=== PATIENT | male | born 1965 | race American Indian/Alaskan Native ===

== ENCOUNTER → 2020-02-18 11:44 | Outpatient (BNVA) | payer MEDICAID, SELFPAY | PROVIDERS: PCP Internal Medicine; Referring Provider Internal Medicine; Visit Provider Orthopaedic Surgery | DX: M75.02 Adhesive capsulitis of left shoulder (principal) | CPT/HCPCS: 99212 ==

== ENCOUNTER → 2020-03-22 09:28 | Outpatient (BNVA) | payer MEDICAID, SELFPAY | PROVIDERS: PCP Internal Medicine; Visit Provider Internal Medicine Cardiovascular Disease | DX: I48.92 Unspecified atrial flutter (principal); I25.10 Atherosclerotic heart disease of native coronary artery without angina pectoris; I10 Essential (primary) hypertension | CPT/HCPCS: 93005; 99212 ==

== ENCOUNTER → 2020-03-23 13:43 | Outpatient (BNVA) | payer MEDICAID, SELFPAY | PROVIDERS: PCP Internal Medicine; Visit Provider Nurse Practitioner Family | DX: Z76.89 Persons encountering health services in other specified circumstances (principal) ==

== ENCOUNTER → 2020-04-05 12:23 | Outpatient (BNVA) | payer MEDICAID, SELFPAY | PROVIDERS: PCP Internal Medicine; Visit Provider Physician Assistant | DX: Z13.89 Encounter for screening for other disorder (principal) | CPT/HCPCS: 99212 ==

== ENCOUNTER 2020-04-06 08:15 | Outpatient (REF) | payer MEDICAID, SELFPAY ==
[2020-04-06 09:09] LABS: Hemoglobin 13.9 g/dl (14.0-18.0); Mean Corpuscular HGB Conc 32.3 g/dl (31.0-36.0); Mean Corpuscular Hemoglobin 26.3 pg (27.0-33.0); Mean Corpuscular Volume 81.4 fL (80-98); Mean Platelet Volume 10.6 fL (9.4-12.4); Platelet Count 421 X10*3/uL (160-400); Red Blood Count 5.28 X10*6/uL (4.60-5.80); Red Cell Distribution Width 13.6 % (11.0-16.0); White Blood Count 10.2 X10*3/uL (4.8-10.8)
[2020-04-06 09:50] LABS: Alanine Aminotransferase 50 U/L (0-40); Albumin Level 4.6 g/dL (3.5-5.0); Alkaline Phosphatase 111 U/L (39-117); Anion Gap 15 (12-20); Aspartate Amino Transferase 36 U/L (5-37); Bilirubin Total 0.7 mg/dL (0.0-1.0); Blood Urea Nitrogen 17 mg/dL (9-16); Carbon Dioxide 29 mmol/L (22-29); Chloride 95 mmol/L (96-108); Estimated Glomerular Filt Rate > 60; Glucose Random 250 mg/dL (60-115); Potassium 3.4 mmol/l (3.3-5.1); Sodium 136 mmol/L (135-145)
== END 2020-04-06 08:16 | disposition home or self-care (01) ==
LOC: HO.LAB 08:15
PROVIDERS: PCP Internal Medicine; Visit Provider Nurse Practitioner Family
DX: Z12.11 Encounter for screening for malignant neoplasm of colon (principal)
CPT/HCPCS: 36415; 80053; 85027

== ENCOUNTER → 2020-04-26 14:11 | Outpatient (BNVA) | payer MEDICAID, SELFPAY | PROVIDERS: PCP Internal Medicine; Visit Provider Nurse Practitioner Family ==

== ENCOUNTER 2020-05-25 06:34 | Day surgery (SDC) | payer MEDICAID, SELFPAY ==
[2020-05-19 11:42] VITALS: BMI 35.7
--- NOTE | 2020-05-24 09:56 | HO.ANESPROP2 ---
Documented by User: Catherine Leahy 05/24/20 09:58 HPI - Anesthesia Eval Consult details Narrative: 55yo M for Upper Endoscopy and Colonoscopy Cardiac cleared at [facility]. Stable CAD s/p CABG for InStent restenoses Eliquis for aflutter PMFSH Active Problems Active Problems: All Active Problems (Updated 05/19/20 @ 11:41 by May Woods) Gastroesophageal reflux disease (Acute) Past Medical History Medical History Adhesive capsulitis of left shoulder Arthritis Asthma Atrial flutter CAD (coronary artery disease) Cellulitis Depression Diabetes GERD (gastroesophageal reflux disease) Gout History of panic attacks Hx of myocardial infarction Hypertension Migraines Scoliosis Seizures Tubular adenoma Family History Family History Father No problems noted. Mother History of stomach cancer History of liver cancer Brother No problems noted. Surgical History Surgical History H/O colonoscopy History of angioplasty History of appendectomy History of esophagogastroduodenoscopy (EGD) History of open heart surgery History of sinus surgery History of umbilical hernia repair Social History Social History Household Members: Children Are you a primary body care manager to a significant other at home: No Do you presently have visiting nurse or other home services: No Alcohol intake: current Alcohol intake frequency: does not drink Smoking Status: Never smoker Use of substances other than those prescribed or required for medical reasons: No Have you been hit, kicked, punched, or otherwise hurt by someone within the past year? If so, by whom?: No Advance Directives: No Advance Directives Information Provided: No Advance Directives on File: No Recently lost weight without trying: No Current occupational status: disabled Meds Allergies Allergy/AdvReac Type Severity Reaction Status Date / Time Penicillins Allergy Mild RASH Verified 05/19/20 11:33 Sulfa (Sulfonamide Allergy Mild RASH Verified 05/19/20 11:33 Antibiotics) Iodinated Contrast Media Allergy Unknown UNKNOWN Verified 05/19/20 11:33 [IV CONTRAST] codeine AdvReac Mild STOMACH Verified 05/19/20 11:33 UPSET Docusate Calcium Allergy Mild rash Uncoded 05/19/20 11:33 Home Medications Medication Instructions Recorded Confirmed Last Taken Type albuterol sulfate 2 mg tablet 2 mg PO Q8H 02/17/20 05/19/20 Unknown History allopurinol 100 mg tablet 200 mg PO DAILY 02/17/20 05/19/20 Unknown History amlodipine 10 mg tablet 10 mg PO DAILY 02/17/20 05/19/20 Unknown History atorvastatin 80 mg tablet 80 mg PO BEDTIME 02/17/20 05/19/20 Unknown History chlorthalidone 50 mg tablet 50 mg PO DAILY 02/17/20 05/19/20 Unknown History fenofibrate 160 mg tablet 160 mg PO DAILY 02/17/20 05/19/20 Unknown History fluticasone furoate 50 INHALATION 02/17/20 04/05/20 Unknown History mcg/actuation blister powder for inhalation metformin 500 mg tablet 500 mg PO DAILY 02/17/20 05/19/20 Unknown History niacin 1,000 mg tablet,extended 1,000 mg PO BEDTIME 02/17/20 05/19/20 Unknown History release 24 hr omeprazole 40 mg capsule,delayed 40 mg PO DAILY 02/17/20 05/19/20 Unknown History release tramadol 50 mg tablet 50 mg PO DAILY 02/17/20 05/19/20 Unknown History Exam Exam Date and Time: May 24, 2020 0956 Height,Weight and Vital Signs: Height 5 ft 9 in Weight 109.769 kg Pertinent Lab Results Pertinent Lab Results: Laboratory Tests 04/06/20 04/06/20 08:30 08:30 WBC 10.2 Hgb 13.9 L Hct 43.0 Plt Count 421 H Sodium 136 Potassium 3.4 Chloride 95 L BUN 17 H Creatinine 1.21 Narrative Narrative: EKG at Cardiac OV 03/2020 NSR, T wave inversions consider anterolateral ischemia. No new changes Assessment and Plan Assessment Anesthesia Assessment: Chart Reviewed Documented by User: Pete Rodriguez 05/25/20 07:22 REPLACED BY [facility] Past Medical History Medical History Adhesive capsulitis of left shoulder Arthritis Asthma Atrial flutter CAD (coronary artery disease) Cellulitis Depression Diabetes GERD (gastroesophageal reflux disease) Gout History of panic attacks Hx of myocardial infarction Hypertension Migraines Scoliosis Seizures Tubular adenoma Family History Family History Father No problems noted. Mother History of stomach cancer History of liver cancer Brother No problems noted. Surgical History Surgical History H/O colonoscopy History of angioplasty History of appendectomy History of esophagogastroduodenoscopy (EGD) History of open heart surgery History of sinus surgery History of umbilical hernia repair Social History Social History Household Members: Children Are you a primary body care manager to a significant other at home: No Do you presently have visiting nurse or other home services: No Alcohol intake: current Alcohol intake frequency: does not drink Smoking Status: Never smoker Use of substances other than those prescribed or required for medical reasons: No Have you been hit, kicked, punched, or otherwise hurt by someone within the past year? If so, by whom?: No Advance Directives: No Advance Directives Information Provided: No Advance Directives on File: No Recently lost weight without trying: No Current occupational status: disabled Meds Allergies Allergy/AdvReac Type Severity Reaction Status Date / Time Penicillins Allergy Mild RASH Verified 05/19/20 11:33 Sulfa (Sulfonamide Allergy Mild RASH Verified 05/19/20 11:33 Antibiotics) Iodinated Contrast Media Allergy Unknown UNKNOWN Verified 05/19/20 11:33 [IV CONTRAST] codeine AdvReac Mild STOMACH Verified 05/19/20 11:33 UPSET Docusate Calcium Allergy Mild rash Uncoded 05/19/20 11:33 Home Medications Medication Instructions Recorded Confirmed Last Taken Type albuterol sulfate 2 mg tablet 2 mg PO Q8H 02/17/20 05/19/20 Unknown History allopurinol 100 mg tablet 200 mg PO DAILY 02/17/20 05/19/20 Unknown History amlodipine 10 mg tablet 10 mg PO DAILY 02/17/20 05/19/20 Unknown History atorvastatin 80 mg tablet 80 mg PO BEDTIME 02/17/20 05/19/20 Unknown History chlorthalidone 50 mg tablet 50 mg PO DAILY 02/17/20 05/19/20 Unknown History fenofibrate 160 mg tablet 160 mg PO DAILY 02/17/20 05/19/20 Unknown History fluticasone furoate 50 INHALATION 02/17/20 04/05/20 Unknown History mcg/actuation blister powder for inhalation metformin 500 mg tablet 500 mg PO DAILY 02/17/20 05/19/20 Unknown History niacin 1,000 mg tablet,extended 1,000 mg PO BEDTIME 02/17/20 05/19/20 Unknown History release 24 hr omeprazole 40 mg capsule,delayed 40 mg PO DAILY 02/17/20 05/19/20 Unknown History release tramadol 50 mg tablet 50 mg PO DAILY 02/17/20 05/19/20 Unknown History Exam Airway Mallampati Class: III TM Dist: >3cm Neck ROM: Full Loose/Missing/Broken Teeth: Yes Heart: irreg irreg S1S2 Lungs: cta b/l Assessment and Plan Assessment Anesthesia Assessment: Anesthesia Plan Discussed, PAT Visit and Chart Reviewed Final Anesthetic Review NPO: Yes ASA Class: III Final Preanesthetic Review: No Changes in Pt Med Stat, Meds/Allgs Chart Reviewed, Consent Obtained/Reviewed and Anes Risks/Benef Reviewed Patient Risk: Intermediate Procedure Risk: Low Assessment/Block/Sedation in SS: Assess/Block/Sedation-SS Anesthetic Plan Anesthetic Plan: MAC: and Agree w/ Assess. and Plan Disposition: Standard PACU
[2020-05-25 06:52] VITALS: BP 149/92; PULSE 92; RESP 18; TEMP 36.3; O2SAT 97
[2020-05-25 06:59] VITALS: BMI 34.1
[2020-05-25 06:59] LABS: Glucose, Whole Blood 187 mg/dL (60-115)
[2020-05-25] MEDS: Lactated Ringers 1,000 ML 50 ML IV (07:33)
--- NOTE | 2020-05-25 07:36 | MHC.SHP ---
Pre-Procedural Eval Section B Chief Complaint: Screening Details of Present Illness: Intractable pain--epigastric/chest; colon cancer screening-TA Relevant Family History (Specify if Yes): No Relevant Social History: None Present Medications: see Short Stay Collaborative assessment Medical History: Significant History (CAD, atrial flutter, on anticoag--held) History of Previous Operations: Relevant previous surgery/procedure and date(s) (colo 5 year ago /tubular adenoma) Allergies: Allergies Allergy/AdvReac Type Severity Reaction Status Date / Time Penicillins Allergy Mild RASH Verified 05/19/20 11:33 Sulfa (Sulfonamide Allergy Mild RASH Verified 05/19/20 11:33 Antibiotics) Iodinated Contrast Media Allergy Unknown UNKNOWN Verified 05/19/20 11:33 [IV CONTRAST] codeine AdvReac Mild STOMACH Verified 05/19/20 11:33 UPSET Docusate Calcium Allergy Mild rash Uncoded 05/19/20 11:33 Review of Systems Sugical H&P ROS: Negative: Constitution, Cardiovascular, Respiratory and Gastrointestinal Exam Surgical H&P Exam: Normal: HEENT, Normal: Heart, Normal: Lungs, Normal: Extremities, Normal: Abdomen and Normal: Skin Plan Diagnosis/Plan: Unchanged I have reviewed the history and physical and performed a pertinent physical examination on my patient. No changes have occurred unless specified.yes
[2020-05-25 08:15] VITALS: BP 119/66; PULSE 83; RESP 18; TEMP 36.3; O2SAT 98
--- NOTE | 2020-05-25 08:18 | P.BOP_ITS ---
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
[2020-05-25 08:30] VITALS: BP 145/95; PULSE 90; RESP 18; TEMP 36.3; O2SAT 96
--- NOTE | 2020-05-28 09:38 | P.OP_ITS ---
Operative Note Operative Note Date of Service: 05/25/20 Narrative: Pre-op diagnosis: Chronic GERD, dyspepsia, Hx of tubular adenomas Post-op diagnosis: other (Erosive antral Gastritis, hx GERD; Rectal polyp- Internal hemorrhoids-2+) Procedure: EGD w/ bx; [place] with exicisional polypectomy cold bx forceps technique Implants: none Surgeon: Betina Davis MD Anesthesia: MAC (Cuff, PANAMA HAT BLOCKER) FINDINGS: EGD: Videoendoscope was introduced withour difficulty. Esophageal mucosa was normal. There was slight erythema in the distal esophagus. No Hiatal hernia was seen. There were pseudopolypoid areas in the antrum with erosive changes associated with them. This was just proximal to the pylorus. Duodenal bulb and proximal second duodenum were mildly erythematous. Random gastric bx were obtained. COLO: JENNA: Prostate was normal to palpation. Adult slim colonoscope was inserted with no difficulty. Scope advanced through sigmoid, descending, tranverse colon. Retained bulky residue was encountered. Not all of this could be suctioned due to the fibrous nature of the material. Scope was advanced into the cecum. Appendiceal orifice was obscured. Ileocecal valve was seen. Slow withdrawal of scope with good rotational views was achieved. 2-3mm polyp was identified @ 8-10cm. This was removed using cold bx forceps. ARV was clear. There were 1-2+Internal Hemorrhoids noted. Estimated blood loss (mL): 10 Pathology: other (random gastric); rectal polyp. Condition: stable Disposition: PACU PLAN: Repeat COLO will be scheduled in 3 years due to prep and lack of visibility in some areas. EGD findings will be discussed with patient on followup visit.
== END 2020-05-25 09:25 | disposition home or self-care (01) ==
PROVIDERS: PCP Internal Medicine; Visit Provider Internal Medicine Gastroenterology
PROC: (CPT 45380; principal; 2020-05-25 07:30)
DX: Z12.11 Encounter for screening for malignant neoplasm of colon (principal); Z86.010 Personal history of colon polyps; D12.8 Benign neoplasm of rectum; K64.8 Other hemorrhoids; K21.9 Gastro-esophageal reflux disease without esophagitis; K29.50 Unspecified chronic gastritis without bleeding; J45.909 Unspecified asthma, uncomplicated; E11.9 Type 2 diabetes mellitus without complications; I25.10 Atherosclerotic heart disease of native coronary artery without angina pectoris; I10 Essential (primary) hypertension; I48.92 Unspecified atrial flutter; Z79.01 Long term (current) use of anticoagulants; Z79.82 Long term (current) use of aspirin; Z79.899 Other long term (current) drug therapy; Z79.51 Long term (current) use of inhaled steroids; Z79.84 Long term (current) use of oral hypoglycemic drugs; Z88.0 Allergy status to penicillin; Z88.2 Allergy status to sulfonamides; Z91.041 Radiographic dye allergy status; Z88.8 Allergy status to other drugs, medicaments and biological substances
CPT/HCPCS: 45380; 43239; 82947; 88305; 88342

== ENCOUNTER → 2020-07-05 13:09 | Outpatient (BNVA) | payer MEDICAID, SELFPAY | PROVIDERS: PCP Internal Medicine; Referring Provider Internal Medicine; Visit Provider Nurse Practitioner Family ==

== ENCOUNTER → 2020-08-09 12:45 | Outpatient (BNVA) | payer MEDICAID, SELFPAY | PROVIDERS: PCP Internal Medicine; Referring Provider Internal Medicine; Visit Provider Nurse Practitioner Family | DX: K21.9 Gastro-esophageal reflux disease without esophagitis (principal); R14.0 Abdominal distension (gaseous) | CPT/HCPCS: 99212 ==

== ENCOUNTER 2020-08-23 07:54 | Outpatient (REF) | payer MEDICAID, SELFPAY ==
[2020-08-23 10:51] LABS: Anion Gap 13 (12-20); Blood Urea Nitrogen 19 mg/dL (9-16); Calcium 9.7 mg/dL (8.4-10.2); Carbon Dioxide 26 mmol/L (22-29); Chloride 102 mmol/L (96-108); Estimated Glomerular Filt Rate > 60; Glucose Random 163 mg/dL (60-115); Potassium 4.2 mmol/L (3.3-5.1); Sodium 137 mmol/L (135-145)
== END 2020-08-23 07:55 | disposition home or self-care (01) ==
LOC: HO.LAB 07:54
PROVIDERS: PCP Internal Medicine; Visit Provider Nurse Practitioner Family
DX: R10.9 Unspecified abdominal pain (principal)
CPT/HCPCS: 36415; 80048

== ENCOUNTER 2020-08-28 11:41 | Outpatient (REF) | payer MEDICAID, SELFPAY ==
--- NOTE | ~2020-08-28 | CT_ITS ---
EXAMINATION: CT ABDOMEN AND PELVIS WITH CONTRAST CLINICAL INFORMATION: Gastroesophageal reflux disease COMPARISON: Previous CT most recent September 2017 and abdominal ultrasound May 2016 TECHNIQUE: Multidetector volumetric images were obtained from the superior aspect of the liver through the pubic symphysis following administration 85 mL of Omnipaque 350 intravenous contrast. Sagittal and coronal reformatted images were obtained on the technologist's workstation. Oral contrast: Yes This CT examination was performed using dose optimization techniques as appropriate, variously including the following: *Automated exposure control *Adjustment of mA and/or kV according to patient size (this includes techniques or standardized protocols for targeted exams where dose is matched to indication/reason for exam; i.e. extremities or head) *Use of iterative reconstruction technique DLP: 742 mGy-cm FINDINGS: LUNG BASES: The visualized lung bases are unremarkable. LIVER, GALLBLADDER, AND BILIARY TREE: The liver is enlarged and low in attenuation suggestive of fatty infiltration. No focal liver lesion is seen. The gallbladder is normal. There is no biliary duct dilatation. PANCREAS: Unremarkable. SPLEEN: Unremarkable. ADRENAL GLANDS: Unremarkable. KIDNEYS AND URETERS: There is a 2 x 3 cm low-attenuation lesion exophytic to the upper pole of the right kidney. Hounsfield units without contrast measure 15 suggestive of a cyst. This is increased from 1 x 2 cm on September 2017 exam. No imaging follow-up needed. The kidneys are otherwise unremarkable. BLADDER: Unremarkable. GASTROINTESTINAL TRACT: There is mild diverticulosis of the colon. No evidence of diverticulitis is seen. The small and large bowel are otherwise unremarkable. The appendix is seen. The stomach is unremarkable. ABDOMINAL WALL: No significant hernia is appreciated. LYMPH NODES: There are small retroperitoneal and small bowel mesentery lymph nodes. No enlarged lymph nodes are seen. VASCULAR: Unremarkable. PELVIC VISCERA: Unremarkable. OSSEOUS STRUCTURES: There are mild degenerative changes of the spine. CT/CT abdomen pelvis w con IMPRESSION: Enlarged fatty liver. Right renal cyst. Mild diverticulosis of the colon.
[2020-08-28] MEDS: Barium Sulfate Oral (Vanilla) 450 ML ORAL.SUSP 900 ML PO (14:30)
== END 2020-08-28 11:42 | disposition home or self-care (01) ==
LOC: HO.CT 11:41
PROVIDERS: Visit Provider Nurse Practitioner Family
DX: K21.9 Gastro-esophageal reflux disease without esophagitis (principal); R14.0 Abdominal distension (gaseous)
CPT/HCPCS: 74177

== ENCOUNTER 2020-10-24 09:50 | Emergency (ER) | payer MEDICAID, SELFPAY ==
--- NOTE | ~2020-10-24 | CT_ITS ---
EXAMINATION: CT ABDOMEN AND PELVIS WITHOUT CONTRAST CLINICAL INFORMATION: Bloody diarrhea; question colitis. COMPARISON: CT abdomen and pelvis dated 09/27/2020. TECHNIQUE: Multidetector volumetric imaging was performed from the superior aspect of the liver through the pubic symphysis. Sagittal and coronal reformatted images were obtained on the technologist's workstation. This CT examination was performed using dose optimization techniques as appropriate, variously including the following: *Automated exposure control *Adjustment of mA and/or kV according to patient size (this includes techniques or standardized protocols for targeted exams where dose is matched to indication/reason for exam; i.e. extremities or head) *Use of iterative reconstruction technique DLP: 908 mGy-cm FINDINGS: LUNG BASES: The visualized lung bases are unremarkable. There has been a prior sternotomy. Question coronary stent partially visualized. LIVER, GALLBLADDER, AND BILIARY TREE: The liver is normal in size, shape, and generally diminished in attenuation. Within the posterior segment of the right hepatic lobe (3:21), a 1.4 cm high attenuation, circumscribed focus is seen. This may represent a vascular structure or a benign hemangioma, and the appearance is unchanged from 09/08/2017 (2:20) and considered benign by virtue of its long-term stability. No biliary ductal dilatation is present. The gallbladder is unremarkable with no evidence of radiopaque gallstones, gallbladder wall thickening, or obvious pericholecystic inflammatory changes. PANCREAS: Unremarkable. SPLEEN: Unremarkable. ADRENAL GLANDS: Unremarkable. KIDNEYS AND URETERS: The kidneys are normal in size, shape, and attenuation. No hydronephrosis, hydroureter, or calculi seen. Arising anteriorly from the mid right kidney (4:40), a 2.9 cm ovoid cyst is seen, with precontrast Hounsfield value of 3.2 units. No perinephric stranding. BLADDER: Unremarkable. GASTROINTESTINAL TRACT: The small and large bowel are unremarkable. The appendix is is not identified and may be surgically absent. Haziness of the mesentery (3:50) is unchanged from prior examinations including 03/10/2015 (2:42), and it is of no acute clinical significance. ABDOMINAL WALL: There are small fat-containing bilateral inguinal hernias. LYMPH NODES: There are shotty, nonpathologically enlarged mesenteric, para-aortic, bilateral iliac chain and inguinal lymph nodes. No sizable abdominopelvic lymphadenopathy is seen. VASCULAR: There is mild aortoiliac atherosclerotic calcification. No abdominal aortic aneurysm is seen. PELVIC VISCERA: The prostate and seminal vesicles are unremarkable. OSSEOUS STRUCTURES: There is multi-level marked lower thoracic and moderate lumbar spondylosis. No acute or aggressive osseous abnormality is seen. CT/CT abdomen pelvis wo con IMPRESSION: 1. No bowel obstruction, free peritoneal air or abscess is seen. The vermiform appendix is not identified. No significant diverticulosis or diverticulitis is seen. 2. No urinary calculus or obstructive uropathy is seen bilaterally. 3. There is hepatic steatosis. 4. No abdominopelvic mass, free fluid or lymphadenopathy is seen. 5. There are multi-level degenerative changes of the thoracolumbar spine.
[2020-10-24 10:09] VITALS: BP 120/87; PULSE 86; RESP 16; TEMP 36.5; O2SAT 97; BMI 34.7
--- NOTE | 2020-10-24 10:32 | ED_ITS ---
HPI - General Adult General Chief complaint: Back Pain/Injury Stated complaint: back pain Time Seen by Provider: 10/24/20 10:17 Source: patient Mode of arrival: ambulatory Limitations: no limitations History of Present Illness HPI narrative: Patient presents to the ED for chronic back pain and also diarrhea with blood. patient describes diarrhea as brown with bright red blood and abdominal cramping. Pateint denies any fever, chills, hematuria, dysuria, flank pain, or any recent trauma. Patient states no urinary/bowel incontinence Related Data Home Medications Medication Instructions Recorded Confirmed albuterol sulfate 2 mg tablet 2 mg PO Q8H 02/17/20 05/19/20 allopurinol 100 mg tablet 200 mg PO DAILY 02/17/20 05/19/20 amlodipine 10 mg tablet 10 mg PO DAILY 02/17/20 05/19/20 atorvastatin 80 mg tablet 80 mg PO BEDTIME 02/17/20 05/19/20 chlorthalidone 50 mg tablet 50 mg PO DAILY 02/17/20 05/19/20 fenofibrate 160 mg tablet 160 mg PO DAILY 02/17/20 05/19/20 fluticasone furoate 50 INHALATION 02/17/20 04/05/20 mcg/actuation blister powder for inhalation (Arnuity Ellipta) metformin 500 mg tablet 500 mg PO DAILY 02/17/20 05/19/20 niacin 1,000 mg tablet,extended 1,000 mg PO BEDTIME 02/17/20 05/19/20 release 24 hr tramadol 50 mg tablet 50 mg PO DAILY 02/17/20 05/19/20 glipizide 10 mg tablet 10 mg PO DAILY 10/25/20 metoprolol succinate 50 mg 50 mg PO DAILY 10/25/20 tablet,extended release 24 hr niacin 500 mg tablet,extended 500 mg PO BEDTIME 10/25/20 release 24 hr Previous Rx's Medication Instructions Recorded aspirin 81 mg tablet,delayed 81 mg PO DAILY #120 tab 04/17/20 release (Adult Aspirin Regimen) famotidine 20 mg tablet 20 mg PO BEDTIME #30 tab 08/09/20 omeprazole 40 mg capsule,delayed 40 mg PO DAILY #30 cap 08/09/20 release apixaban 5 mg tablet (Eliquis) 5 mg PO BID 90 Days #180 tab 08/10/20 docusate sodium 100 mg capsule 100 mg PO BEDTIME #30 cap 10/25/20 hydrocortisone 2.5 % topical cream 1 appl CA BID-QID PRN #30 g 10/25/20 with perineal applicator (Proctosol HC) sennosides 8.6 mg tablet (Natural 8.6 mg PO BEDTIME #30 tab 10/25/20 Senna Laxative) Allergies Allergy/AdvReac Type Severity Reaction Status Date / Time Iodinated Contrast Media Allergy Intermediate Difficulty Verified 10/25/20 12:51 [IV CONTRAST] Breathing Penicillins Allergy Mild RASH Verified 10/25/20 12:51 Sulfa (Sulfonamide Allergy Mild RASH Verified 10/25/20 12:51 Antibiotics) codeine AdvReac Mild STOMACH Verified 10/25/20 12:51 UPSET Docusate Calcium Allergy Mild rash Uncoded 10/25/20 12:51 Review of Systems Constitutional: Constitutional: Reports as per HPI and Reports no additional constitutional complaints Eyes: Eyes: Reports as per HPI and Reports no additional eye complaints ENT: Reports system reviewed and no additional complaints, except as documented and Reports as per HPI Cardiovascular: Cardiovascular: Reports as per HPI and Reports no additional cardiovascular complaints Respiratory: Respiratory: Reports as per HPI and Reports no additional respiratory complaints Gastrointestinal: Gastrointestinal: Reports as per HPI, Reports no additional gastrointestinal complaints, Reports hematochezia and Reports diarrhea Musculoskeletal: Musculoskeletal: Reports no additional musculoskeletal complaints and Reports as per HPI Neurologic: Reports system reviewed and no additional complaints, except as documented and Reports as per HPI Psychiatric: Psychiatric: Reports no additional psychiatric complaints and Reports as per HPI PMFSH Past Medical History Medical History Adhesive capsulitis of left shoulder Arthritis Asthma Atrial flutter CAD (coronary artery disease) Cellulitis Depression Diabetes GERD (gastroesophageal reflux disease) Gout History of panic attacks Hx of myocardial infarction Hypertension Migraines Scoliosis Seizures Tubular adenoma Surgical History H/O colonoscopy History of angioplasty History of appendectomy History of esophagogastroduodenoscopy (EGD) History of open heart surgery History of sinus surgery History of umbilical hernia repair Family History Family History Father No problems noted. Mother History of stomach cancer History of liver cancer Brother No problems noted. Social History Social History Household Members: Children Are you a primary neurocritical care physician to a significant other at home: No Do you presently have visiting nurse or other home services: No Alcohol intake: never Patient Tobacco Use Status: Never used Tobacco Current occupational status: disabled Physical Exam Vital Signs: Vital Signs: Last Vital Signs Temp 97.7 F 10/24/20 10:09 Pulse 83 10/24/20 12:40 Resp 16 10/24/20 10:09 BP 153/94 H 10/24/20 12:40 Pulse Ox 97 10/24/20 12:40 Body Mass Index 34.7 Const: General: cooperative, healthy appearing, comfortable, no acute distress, well developed, alert, awake and Physically active Orientation/consciousness: patient oriented x3 HENMT: Head: Yes normal to inspection, Yes No palpable skull fracture present, Yes normocephalic, Yes atraumatic and No abrasion Eyes: General: appearance normal, both eyes and all related structures Neck: Neck: Yes normal visual inspection, Yes full ROM, Yes no lymphadenopathy, Yes no meningeal signs, Yes trachea midline, Yes supple and No tender Chest: Chest palpation & inspection: normal inspection of the chest and normal palpation of entire chest wall Resp: Effort & Inspection: normal respiratory effort and able to speak in complete sentences Cardio: Jugular venous distension: no JVD Heart sounds: S1 normal heart sound present and S2 normal heart sound present GI: Inspection: Yes normal to inspection and No abdominal wall ecchymosis Palpation (GI): Soft to palpation, not firm, nontender, no guarding and not rigid : General: No CVA tenderness and Yes no CVA tenderness Back/Spine/Pelvis: Back: no CVA tenderness, No CVA tenderness and No back tenderness Skin: General skin exam: no rashes or lesions noted and elasticity normal Neuro: General: patient oriented x3, gait normal, no meningeal signs and CN's II-XI intact bilaterally Cranial nerves: Yes CN's II-XII intact bilaterally Extrem: General: Yes normal to inspection and Yes full ROM Psych: Appearance: grossly normal, well kempt and not disheveled Course Course Course Narrative: Labs and rectal exam to be done. Reevaluation(s) Reevaluation #1: Patient is Hemodynamically stable and not in any distress. patient did not have any diarrhea during ED visit. Stool guaic is negative. WIll send for CT scan Time: 10:59 Reevaluation #2: CT scan came back normal and negative for colitis or diverticulosis. Patient was asked to give stool sample to check for bacteria including C.diff, but patient could not give sample. patient informed to follow up with his PCP tomorrow for stool culture. patient also advised to follow up with PCP for referral to gastroenterolgist for colonscopy Time: 15:32 Medical Decision Making MDM Narrative Medical decision making narrative: Diarrhea, with rectal bleeding Lab Data Result diagrams: 10/24/20 10:38 10/24/20 10:38 Labs: Lab Results 10/24/20 10/24/20 10/24/20 Range/Units 10:38 10:38 10:38 WBC 9.4 (4.8-10.8) X10*3/uL RBC 5.24 (4.60-5.80) X10*6/uL Hgb 13.9 L (14.0-18.0) g/dl Hct 42.9 (42-52) % MCV 81.9 (80-98) fL MCH 26.5 L (27.0-33.0) pg MCHC 32.4 (31.0-36.0) g/dl RDW 14.5 (11.0-16.0) % Plt Count 348 (160-400) X10*3/uL MPV 9.5 (9.4-12.4) fL Immature Gran % (Auto) 0.3 (0.0-0.4) % Neut % (Auto) 51.6 (45-73) % Lymph % (Auto) 35.6 (20-40) % [place] % (Auto) 8.5 (2-11) % Eos % (Auto) 3.1 (0-4) % Baso % (Auto) 0.9 (0-2) % Lymph # (Auto) 3.3 (1.2-4.9) X10*3/uL [place] # (Auto) 0.8 (0.1-1.2) X10*3/uL Eos # (Auto) 0.3 (0.0-0.4) X10*3/uL Baso # (Auto) 0.1 (0.0-0.2) X10*3/uL Abs Immat Gran (auto) 0.03 (0.00-0.03) X10*3/uL Absolute Neuts (auto) 4.8 (2.0-8.3) X10*3/uL Absolute Nucleated RBC 0.000 (0.0-0.012) X10*3/uL Nucleated RBC % (auto) 0.0 (0.0-0.2) /100WBC PT 12.4 (9.9-13.0) SEC INR 1.1 (0.9-1.1) APTT 42.6 H (24.1-38.0) SEC Sodium 136 (135-145) mmol/L Potassium 3.7 (3.3-5.1) mmol/L Chloride 99 (96-108) mmol/L Carbon Dioxide 27 (22-29) mmol/L Anion Gap 14 (12-20) BUN 22 H (9-16) mg/dL Creatinine 1.08 (0.5-1.4) mg/dL Estim Creat Clear Calc 91.8 Estimated GFR > 60 Random Glucose 163 H (60-115) mg/dL Calcium 10.0 (8.4-10.2) mg/dL Total Bilirubin 0.3 (0.0-1.0) mg/dL Direct Bilirubin (0.0-0.5) mg/dL AST 23 (5-37) U/L ALT 35 (0-40) U/L Alkaline Phosphatase 119 H (39-117) U/L Total Protein 7.9 (6.5-8.0) g/dL Albumin 4.2 (3.5-5.0) g/dL Lipase (8-78) U/L Stool Occult Blood (NEGATIVE) 10/24/20 10/24/20 Range/Units 10:38 10:59 WBC (4.8-10.8) X10*3/uL RBC (4.60-5.80) X10*6/uL Hgb (14.0-18.0) g/dl Hct (42-52) % MCV (80-98) fL MCH (27.0-33.0) pg MCHC (31.0-36.0) g/dl RDW (11.0-16.0) % Plt Count (160-400) X10*3/uL MPV (9.4-12.4) fL Immature Gran % (Auto) (0.0-0.4) % Neut % (Auto) (45-73) % Lymph % (Auto) (20-40) % [place] % (Auto) (2-11) % Eos % (Auto) (0-4) % Baso % (Auto) (0-2) % Lymph # (Auto) (1.2-4.9) X10*3/uL [place] # (Auto) (0.1-1.2) X10*3/uL Eos # (Auto) (0.0-0.4) X10*3/uL Baso # (Auto) (0.0-0.2) X10*3/uL Abs Immat Gran (auto) (0.00-0.03) X10*3/uL Absolute Neuts (auto) (2.0-8.3) X10*3/uL Absolute Nucleated RBC (0.0-0.012) X10*3/uL Nucleated RBC % (auto) (0.0-0.2) /100WBC PT (9.9-13.0) SEC INR (0.9-1.1) APTT (24.1-38.0) SEC Sodium (135-145) mmol/L Potassium (3.3-5.1) mmol/L Chloride (96-108) mmol/L Carbon Dioxide (22-29) mmol/L Anion Gap (12-20) BUN (9-16) mg/dL Creatinine (0.5-1.4) mg/dL Estim Creat Clear Calc Estimated GFR Random Glucose (60-115) mg/dL Calcium (8.4-10.2) mg/dL Total Bilirubin 0.3 (0.0-1.0) mg/dL Direct Bilirubin < 0.2 (0.0-0.5) mg/dL AST 23 (5-37) U/L ALT 34 (0-40) U/L Alkaline Phosphatase 118 H (39-117) U/L Total Protein 7.9 (6.5-8.0) g/dL Albumin 4.3 (3.5-5.0) g/dL Lipase 39 (8-78) U/L Stool Occult Blood POSITIVE (NEGATIVE) Discharge Plan Discharge Clinical Impression: Gastroenteritis, Rectal bleed Patient Disposition: Home, Self-Care Instructions: Rectal Bleeding (ED), Acute Diarrhea (ED) Additional Instructions: Regrese al m?dico si tiene dolor abdominal, empeoramiento del sangrado rectal, fiebre, escalofr?os, debilidad o cualquier otro s?ntoma que le preocupe. Llame al PCP ma?akilah para programar un muestreo de heces para verificar si hay lisa terias, incluida C. Diff. Tambi?n necesitar? seguimiento con gastroenterolog?a. Prescriptions: No Action aspirin [Adult Aspirin Regimen] 81 mg tablet,delayed release (DR/EC) 81 mg PO DAILY Qty: 120 RF: 3 Hold Instructions: Resume on 05/30/20. removal small polyp Eliquis 5 mg tablet 5 mg PO BID 90 Days Qty: 180 RF: 1 omeprazole 40 mg capsule,delayed release(DR/EC) 40 mg PO DAILY Qty: 30 RF: 2 famotidine 20 mg tablet 20 mg PO BEDTIME Qty: 30 RF: 3 glipizide 10 mg tablet 10 mg PO DAILY RF: 0 metoprolol succinate 50 mg tablet extended release 24 hr 50 mg PO DAILY RF: 0 niacin 500 mg tablet extended release 24 hr 500 mg PO BEDTIME RF: 0 docusate sodium 100 mg capsule 100 mg PO BEDTIME Qty: 30 RF: 3 sennosides [Natural Senna Laxative] 8.6 mg tablet 8.6 mg PO BEDTIME Qty: 30 RF: 2 hydrocortisone [Proctosol HC] 2.5 % cream with perineal applicator 1 appl CA BID-QID PRN (Reason: hemorrhoids) Qty: 30 RF: 2 Arnuity Ellipta 50 mcg/actuation blister with device inhalation RF: 0 tramadol 50 mg tablet 50 mg PO DAILY RF: 0 amlodipine 10 mg tablet 10 mg PO DAILY RF: 0 albuterol sulfate 2 mg tablet 2 mg PO Q8H RF: 0 chlorthalidone 50 mg tablet 50 mg PO DAILY RF: 0 niacin 1,000 mg tablet extended release 24 hr 1,000 mg PO BEDTIME RF: 0 fenofibrate 160 mg tablet 160 mg PO DAILY RF: 0 atorvastatin 80 mg tablet 80 mg PO BEDTIME RF: 0 metformin 500 mg tablet 500 mg PO DAILY RF: 0 allopurinol 100 mg tablet 200 mg PO DAILY RF: 0 Referrals: Sam Saini [Physician] - 2 days (Rectal bleed. Colonscopy may be necessary) Stand Alone Forms: Work/School Release Interventions: ED Discharge Assessment Last Done: 10/24/20 15:56 Discharge Date/Time: 10/24/20 15:56 Print Language: Pakistani
[2020-10-24] MEDS: 0.9 % Sodium Chloride 1,000 ML 999 ML IV (10:40)
[2020-10-24 10:44] LABS: MANUAL DIFF FLAG NO
[2020-10-24 10:48] LABS: Basophils Absolute Auto 0.1 X10*3/uL (0.0-0.2); Basophils Percent Auto 0.9 % (0-2); Eosinophils Absolute Auto 0.3 X10*3/uL (0.0-0.4); Eosinophils Percent Auto 3.1 % (0-4); Hematocrit 42.9 % (42-52); Hemoglobin 13.9 g/dl (14.0-18.0); Imm Gran Abs Auto 0.03 X10*3/uL (0.00-0.03); Imm Gran Pct Auto 0.3 % (0.0-0.4); Lymphocytes Absolute Auto 3.3 X10*3/uL (1.2-4.9); Lymphocytes Percent Auto 35.6 % (20-40); Mean Corpuscular HGB Conc 32.4 g/dl (31.0-36.0); Mean Corpuscular Hemoglobin 26.5 pg (27.0-33.0); Mean Corpuscular Volume 81.9 fL (80-98); Mean Platelet Volume 9.5 fL (9.4-12.4); Monocytes Absolute Auto 0.8 X10*3/uL (0.1-1.2); Monocytes Percent Auto 8.5 % (2-11); Neutrophils Absolute Auto 4.8 X10*3/uL (2.0-8.3); Neutrophils Percent Auto 51.6 % (45-73); Platelet Count 348 X10*3/uL (160-400); Red Blood Count 5.24 X10*6/uL (4.60-5.80); Red Cell Distribution Width 14.5 % (11.0-16.0); White Blood Count 9.4 X10*3/uL (4.8-10.8)
[2020-10-24 10:55] LABS: INTERNATIONAL NORM RATIO 1.1 (0.9-1.1); Prothrombin Time 12.4 SEC (9.9-13.0)
[2020-10-24 10:58] LABS: Partial Thromboplastin Time 42.6 SEC (24.1-38.0)
[2020-10-24 11:09] LABS: OBS Int Ctl Valid YES; OBS1 POSITIVE (NEGATIVE)
[2020-10-24 11:13] LABS: Alanine Aminotransferase 35 U/L (0-40); Albumin Level 4.2 g/dL (3.5-5.0); Alkaline Phosphatase 119 U/L (39-117); Anion Gap 14 (12-20); Aspartate Amino Transferase 23 U/L (5-37); Bilirubin Total 0.3 mg/dL (0.0-1.0); Blood Urea Nitrogen 22 mg/dL (9-16); Carbon Dioxide 27 mmol/L (22-29); Chloride 99 mmol/L (96-108); Creatinine Clr Calc Pharmacy 91.8; Estimated Glomerular Filt Rate > 60; Glucose Random 163 mg/dL (60-115); Potassium 3.7 mmol/L (3.3-5.1); Sodium 136 mmol/L (135-145); Total Protein 7.9 g/dL (6.5-8.0)
[2020-10-24 11:14] LABS: Alanine Aminotransferase 34 U/L (0-40); Albumin Level 4.3 g/dL (3.5-5.0); Alkaline Phosphatase 118 U/L (39-117); Aspartate Amino Transferase 23 U/L (5-37); Bilirubin Direct < 0.2 mg/dL (0.0-0.5); Bilirubin Total 0.3 mg/dL (0.0-1.0); Lipase 39 U/L (8-78); Total Protein 7.9 g/dL (6.5-8.0)
[2020-10-24] MEDS: Famotidine/PF 20 MG/2 ML VIAL IVPUSH (11:14)
[2020-10-24 12:40] VITALS: BP 153/94; PULSE 83; O2SAT 97
== END 2020-10-24 15:56 | disposition home or self-care (01) ==
PROVIDERS: Physician Assistant; Emergency Provider Internal Medicine; PCP Internal Medicine
DX: K52.9 Noninfective gastroenteritis and colitis, unspecified (principal); K62.5 Hemorrhage of anus and rectum; E11.9 Type 2 diabetes mellitus without complications; I10 Essential (primary) hypertension; I25.2 Old myocardial infarction; Z79.899 Other long term (current) drug therapy
CPT/HCPCS: 36415; 74176; 80053; 80076; 82248; 82272; 83690; 85025; 85610; 85730; 96361; 96374; 99284

== ENCOUNTER → 2020-10-25 12:42 | Outpatient (BNVA) | payer MEDICAID, SELFPAY | PROVIDERS: PCP Internal Medicine; Referring Provider Internal Medicine; Visit Provider Nurse Practitioner Family | DX: K59.01 Slow transit constipation (principal); K64.1 Second degree hemorrhoids | CPT/HCPCS: 99212 ==

== ENCOUNTER → 2021-01-29 07:46 | Outpatient (BNVA) | payer MEDICAID, SELFPAY | PROVIDERS: PCP Internal Medicine; Referring Provider Internal Medicine; Visit Provider Nurse Practitioner Family | DX: K21.9 Gastro-esophageal reflux disease without esophagitis (principal); K59.04 Chronic idiopathic constipation; K64.9 Unspecified hemorrhoids | CPT/HCPCS: 99212 ==

== ENCOUNTER → 2021-05-15 12:48 | Outpatient (BNVA) | payer MEDICAID, SELFPAY | PROVIDERS: PCP Internal Medicine; Referring Provider Internal Medicine; Visit Provider Nurse Practitioner Family | DX: I25.10 Atherosclerotic heart disease of native coronary artery without angina pectoris (principal); I10 Essential (primary) hypertension; I48.92 Unspecified atrial flutter; I25.2 Old myocardial infarction; Z86.73 Personal history of transient ischemic attack (TIA), and cerebral infarction without residual deficits; Z79.01 Long term (current) use of anticoagulants; Z79.82 Long term (current) use of aspirin; Z79.899 Other long term (current) drug therapy; Z95.1 Presence of aortocoronary bypass graft | CPT/HCPCS: 99212 ==

== ENCOUNTER 2021-06-14 17:25 | Emergency (ER) | payer MEDICAID, SELFPAY ==
--- NOTE | 2021-06-14 | ECG_ITS ---
Test Reason : CHEST PAIN Blood Pressure : / mmHG Vent. Rate : 099 BPM Atrial Rate : 099 BPM P-R Int : 146 ms QRS Dur : 098 ms QT Int : 354 ms P-R-T Axes : 038 004 150 degrees QTc Int : 454 ms Normal sinus rhythm RSR' or QR pattern in V1 suggests right ventricular conduction delay T wave abnormality, consider lateral ischemia Abnormal ECG When compared with ECG of 01-MAY-2019 11:02, RSR' pattern in V1 is now Present Referred By: Marc Vanessa Electronically Signed By:PERLA HERNANDEZ MD
[2021-06-14 17:47] VITALS: BP 132/58; BP 135/73; PULSE 120; PULSE 93; RESP 18; TEMP 36.7; O2SAT 98; O2SAT 99; BMI 34.1
--- NOTE | 2021-06-14 17:47 | ED_ITS ---
HPI - Chest Pain General Chief Complaint: Chest Pain Stated Complaint: Chest pain Time Seen by Provider: 06/14/21 17:47 Source: patient Mode of arrival: EMS Limitations: no limitations History of Present Illness HPI narrative: Patient 56 years old with history of hypertension hyperlipidemia diabetes paroxysmal AFib on Eliquis coronary artery disease status post CABG in 2019 usually healthy otherwise without any chest pains today had argument with his daughter who is 12 years old an hour prior to arrival which made him stressed out started having chest pain Feels same as when he had a heart attack pain going to the left shoulder feel his tongue numb no facial pain. Patient received aspirin and nitroglycerin by EMS felt little better Related Data Home Medications Medication Instructions Recorded Confirmed albuterol sulfate 2 mg tablet 2 mg PO Q8H 02/17/20 05/15/21 allopurinol 100 mg tablet 200 mg PO DAILY 02/17/20 05/15/21 amlodipine 10 mg tablet 10 mg PO DAILY 02/17/20 05/15/21 atorvastatin 80 mg tablet 80 mg PO BEDTIME 02/17/20 05/15/21 chlorthalidone 50 mg tablet 50 mg PO DAILY 02/17/20 05/15/21 fenofibrate 160 mg tablet 160 mg PO DAILY 02/17/20 05/15/21 fluticasone furoate 50 INHALATION 02/17/20 05/15/21 mcg/actuation blister powder for inhalation (Arnuity Ellipta) metformin 500 mg tablet 500 mg PO DAILY 02/17/20 05/15/21 niacin 1,000 mg tablet,extended 1,000 mg PO BEDTIME 02/17/20 05/15/21 release 24 hr tramadol 50 mg tablet 50 mg PO DAILY 02/17/20 05/15/21 glipizide 10 mg tablet 10 mg PO DAILY 10/25/20 05/15/21 metoprolol succinate 50 mg 50 mg PO DAILY 10/25/20 05/15/21 tablet,extended release 24 hr niacin 500 mg tablet,extended 500 mg PO BEDTIME 10/25/20 05/15/21 release 24 hr cholecalciferol (vitamin D3) 50 50 mcg PO QAM 01/29/21 05/15/21 mcg (2,000 unit) capsule fluticasone propionate 110 1 puff INHALATION BID 01/29/21 05/15/21 mcg/actuation HFA aerosol inhaler (Flovent HFA) glipizide 10 mg tablet, extended 10 mg PO 01/29/21 05/15/21 release 24 hr loratadine 10 mg tablet 10 mg PO DAILY 01/29/21 05/15/21 Previous Rx's Medication Instructions Recorded aspirin 81 mg tablet,delayed 81 mg PO DAILY #120 tab 04/17/20 release (Adult Aspirin Regimen) hydrocortisone 2.5 % topical cream 1 appl NM BID-QID PRN #30 g 10/25/20 with perineal applicator (Proctosol HC) docusate sodium 100 mg capsule 100 mg PO BEDTIME #90 cap 01/29/21 famotidine 20 mg tablet 20 mg PO BEDTIME #90 tab 01/29/21 omeprazole 40 mg capsule,delayed 40 mg PO DAILY #90 cap 01/29/21 release sennosides 8.6 mg tablet (Natural 8.6 mg PO BEDTIME #90 tab 01/29/21 Senna Laxative) apixaban 5 mg tablet (Eliquis) 5 mg PO BID 90 Days #180 tab 06/04/21 Allergies Allergy/AdvReac Type Severity Reaction Status Date / Time Iodinated Contrast Media Allergy Intermediate Difficulty Verified 05/15/21 12:58 [IV CONTRAST] Breathing Penicillins Allergy Mild RASH Verified 05/15/21 12:58 Sulfa (Sulfonamide Allergy Mild RASH Verified 05/15/21 12:58 Antibiotics) codeine AdvReac Mild STOMACH Verified 05/15/21 12:58 UPSET Docusate Calcium Allergy Mild rash Uncoded 01/29/21 08:08 Review of Systems Review of Systems: Yes all other systems are reviewed and are negative [facility] Past Medical History Medical History Adhesive capsulitis of left shoulder Arthritis Asthma Atrial flutter CAD (coronary artery disease) Cellulitis Depression Diabetes GERD (gastroesophageal reflux disease) Gout History of panic attacks Hx of myocardial infarction Hypertension Migraines Scoliosis Seizures Tubular adenoma Surgical History H/O colonoscopy History of angioplasty History of appendectomy History of esophagogastroduodenoscopy (EGD) History of open heart surgery History of sinus surgery History of umbilical hernia repair Family History Family History Father No problems noted. Mother History of stomach cancer History of liver cancer Brother No problems noted. Social History Social History Household Members: Children Are you a primary skin care therapist to a significant other at home: No Do you presently have visiting nurse or other home services: No Alcohol intake: never Patient Tobacco Use Status: Never used Tobacco Advance Directives: No Advance Directives Information Provided: No Current occupational status: disabled Physical Exam Vital Signs: Vital Signs: Last Vital Signs Temp 98.0 F 06/14/21 17:47 Pulse 92 06/14/21 22:12 Resp 24 H 06/14/21 22:12 BP 133/80 06/14/21 22:12 Pulse Ox 97 06/14/21 22:12 BMI result Body Mass Index 34.1 Appearance: Alert. Oriented X3. No acute distress. Anxious Eyes: No pallor or icterus ENT: Pharynx normal. Oral Mucosa moist Neck: Normal inspection. Neck supple. CVS: Normal heart rate and rhythm. Pulses normal. Respiratory: No respiratory distress. Equal air entry bilateral, no wheezing/rales/rhonchi Abdomen: Soft and nontender. Bowel sounds are present, no mass palpable, Skin: Skin warm and dry. Normal skin color. Normal skin turgor. Extremities: No lower extremity edema. No calf tenderness Neuro: Oriented X 3. No motor deficit. No sensory deficit.No cerebellar signs , cranial nerves II-XII intact MDM - Chest Pain MDM Narrative Medical decision making narrative: Patient atypical chest pain with anxiety attack 2 sets of high sensitive troponin negative patient asymptomatic after arrival in the ER will discharge p atient home Medical Records Data Attestation: I reviewed the patient's medical records. Lab Data Attestation: I reviewed the patient's lab results. Result diagrams: 06/14/21 18:45 06/14/21 18:45 Labs: Lab Results 06/14/21 06/14/21 06/14/21 Range/Units 18:45 18:45 18:45 WBC 9.3 (4.8-10.8) X10*3/uL RBC 4.78 (4.60-5.80) X10*6/uL Hgb 13.1 L (14.0-18.0) g/dl Hct 39.5 L (42.0-52.0) % MCV 82.6 (80.0-98.0) fL MCH 27.4 (27.0-33.0) pg MCHC 33.2 (31.0-36.0) g/dl RDW 13.1 (11.0-16.0) % Plt Count 392 (160-400) X10*3/uL MPV 9.5 (9.4-12.4) fL Immature Gran % (Auto) 0.2 (0.0-0.4) % Neut % (Auto) 60.3 (45-73) % Lymph % (Auto) 31.0 (20-40) % Vance % (Auto) 6.7 (2-11) % Eos % (Auto) 1.2 (0-4) % Baso % (Auto) 0.6 (0-2) % Lymph # (Auto) 2.9 (1.2-4.9) X10*3/uL Vance # (Auto) 0.6 (0.1-1.2) X10*3/uL Eos # (Auto) 0.1 (0.0-0.4) X10*3/uL Baso # (Auto) 0.1 (0.0-0.2) X10*3/uL Abs Immat Gran (auto) 0.02 (0.00-0.03) X10*3/uL Absolute Neuts (auto) 5.6 (2.0-8.3) x10*3/uL Absolute Nucleated RBC 0.000 (0.0-0.012) X10*3/uL Nucleated RBC % (auto) 0.0 (0.0-0.2) /100WBC PT (9.9-13.0) SEC INR (0.9-1.1) APTT (24.1-38.0) SEC Sodium 136 (135-145) mmol/L Potassium 3.7 (3.3-5.1) mmol/L Chloride 102 (96-108) mmol/L Carbon Dioxide 23 (22-29) mmol/L Anion Gap 15 (12-20) BUN 17 H (9-16) mg/dL Creatinine 0.96 (0.5-1.4) mg/dL Estim Creat Clear Calc 101.3 Estimated GFR > 60 Random Glucose 170 H (60-115) mg/dL Calcium 9.9 (8.4-10.2) mg/dL Magnesium 1.9 (1.6-2.6) mg/dL Total Bilirubin 0.6 (0.0-1.0) mg/dL AST 31 (5-37) U/L ALT 35 (0-40) U/L Alkaline Phosphatase 132 H (39-117) U/L Troponin I High Sens 3.5 (<3.5-35.0) ng/L Total Protein 7.8 (6.5-8.0) g/dL Albumin 4.3 (3.5-5.0) g/dL 06/14/21 06/14/21 Range/Units 18:45 22:21 WBC (4.8-10.8) X10*3/uL RBC (4.60-5.80) X10*6/uL Hgb (14.0-18.0) g/dl Hct (42.0-52.0) % MCV (80.0-98.0) fL MCH (27.0-33.0) pg MCHC (31.0-36.0) g/dl RDW (11.0-16.0) % Plt Count (160-400) X10*3/uL MPV (9.4-12.4) fL Immature Gran % (Auto) (0.0-0.4) % Neut % (Auto) (45-73) % Lymph % (Auto) (20-40) % Vance % (Auto) (2-11) % Eos % (Auto) (0-4) % Baso % (Auto) (0-2) % Lymph # (Auto) (1.2-4.9) X10*3/uL Vance # (Auto) (0.1-1.2) X10*3/uL Eos # (Auto) (0.0-0.4) X10*3/uL Baso # (Auto) (0.0-0.2) X10*3/uL Abs Immat Gran (auto) (0.00-0.03) X10*3/uL Absolute Neuts (auto) (2.0-8.3) x10*3/uL Absolute Nucleated RBC (0.0-0.012) X10*3/uL Nucleated RBC % (auto) (0.0-0.2) /100WBC PT 12.3 (9.9-13.0) SEC INR 1.1 (0.9-1.1) APTT 35.8 (24.1-38.0) SEC Sodium (135-145) mmol/L Potassium (3.3-5.1) mmol/L Chloride (96-108) mmol/L Carbon Dioxide (22-29) mmol/L Anion Gap (12-20) BUN (9-16) mg/dL Creatinine (0.5-1.4) mg/dL Estim Creat Clear Calc Estimated GFR Random Glucose (60-115) mg/dL Calcium (8.4-10.2) mg/dL Magnesium (1.6-2.6) mg/dL Total Bilirubin (0.0-1.0) mg/dL AST (5-37) U/L ALT (0-40) U/L Alkaline Phosphatase (39-117) U/L Troponin I High Sens 3.8 (<3.5-35.0) ng/L Total Protein (6.5-8.0) g/dL Albumin (3.5-5.0) g/dL Discharge Plan Discharge Clinical Impression: Chest pain Patient Disposition: Home, Self-Care Instructions: Chest Pain (ED), Anxiety (ED) Additional Instructions: Rest at home Continue your medication Report to the ER if pain continues or gets worse Prescriptions: No Action aspirin [Adult Aspirin Regimen] 81 mg tablet,delayed release (DR/EC) 81 mg PO DAILY Qty: 120 3RF Hold Instructions: Resume on 05/30/20. removal small polyp Eliquis 5 mg tablet 5 mg PO BID 90 Days Qty: 180 1RF glipizide 10 mg tablet 10 mg PO DAILY 0RF metoprolol succinate 50 mg tablet extended release 24 hr 50 mg PO DAILY 0RF niacin 500 mg tablet extended release 24 hr 500 mg PO BEDTIME 0RF hydrocortisone [Proctosol HC] 2.5 % cream with perineal applicator 1 appl NM BID-QID PRN (Reason: hemorrhoids) Qty: 30 2RF Rx Instructions: aplique el aplicador en el tubo, inserte el aplicador dentro de sheriff recto y mientras saca el aplicador apriete el tubo para que la crema se aplique en el interior de sheriff recto Arnuity Ellipta 50 mcg/actuation blister with device inhalation 0RF tramadol 50 mg tablet 50 mg PO DAILY 0RF amlodipine 10 mg tablet 10 mg PO DAILY 0RF albuterol sulfate 2 mg tablet 2 mg PO Q8H 0RF chlorthalidone 50 mg tablet 50 mg PO DAILY 0RF niacin 1,000 mg tablet extended release 24 hr 1,000 mg PO BEDTIME 0RF fenofibrate 160 mg tablet 160 mg PO DAILY 0RF atorvastatin 80 mg tablet 80 mg PO BEDTIME 0RF metformin 500 mg tablet 500 mg PO DAILY 0RF allopurinol 100 mg tablet 200 mg PO DAILY 0RF cholecalciferol (vitamin D3) 50 mcg (2,000 unit) capsule 50 mcg PO QAM 0RF Flovent HFA 110 mcg/actuation HFA aerosol inhaler 1 puff inhalation BID 0RF loratadine 10 mg tablet 10 mg PO DAILY 0RF glipizide 10 mg tablet extended release 24hr 10 mg PO 0RF docusate sodium 100 mg capsule 100 mg PO BEDTIME Qty: 90 3RF Rx Instructions: irina emigdio capsula cada noche famotidine 20 mg tablet 20 mg PO BEDTIME Qty: 90 3RF omeprazole 40 mg capsule,delayed release(DR/EC) 40 mg PO DAILY Qty: 90 3RF sennosides [Natural Senna Laxative] 8.6 mg tablet 8.6 mg PO BEDTIME Qty: 90 3RF Rx Instructions: irina emigdio tableta cada noche Interventions: ED Discharge Assessment Last Done: 06/14/21 23:08 Discharge Date/Time: 06/14/21 23:09 Print Language: [place]se
[2021-06-14 18:19] VITALS: BP 139/82; PULSE 95
[2021-06-14] MEDS: Nitroglycerin 2 % Oint 1 GM Packet 1 INCH TRANSDERMA (18:19)
[2021-06-14 18:53] LABS: MANUAL DIFF FLAG NO
[2021-06-14 18:54] LABS: Basophils Absolute Auto 0.1 X10*3/uL (0.0-0.2); Basophils Percent Auto 0.6 % (0-2); Eosinophils Absolute Auto 0.1 X10*3/uL (0.0-0.4); Eosinophils Percent Auto 1.2 % (0-4); Hematocrit 39.5 % (42.0-52.0); Hemoglobin 13.1 g/dl (14.0-18.0); Imm Gran Abs Auto 0.02 X10*3/uL (0.00-0.03); Imm Gran Pct Auto 0.2 % (0.0-0.4); Lymphocytes Absolute Auto 2.9 X10*3/uL (1.2-4.9); Mean Corpuscular HGB Conc 33.2 g/dl (31.0-36.0); Mean Corpuscular Hemoglobin 27.4 pg (27.0-33.0); Mean Corpuscular Volume 82.6 fL (80.0-98.0); Mean Platelet Volume 9.5 fL (9.4-12.4); Monocytes Absolute Auto 0.6 X10*3/uL (0.1-1.2); Monocytes Percent Auto 6.7 % (2-11); Neutrophils Absolute Auto 5.6 x10*3/uL (2.0-8.3); Neutrophils Percent Auto 60.3 % (45-73); Platelet Count 392 X10*3/uL (160-400); Red Blood Count 4.78 X10*6/uL (4.60-5.80); Red Cell Distribution Width 13.1 % (11.0-16.0); White Blood Count 9.3 X10*3/uL (4.8-10.8)
[2021-06-14 18:59] LABS: INTERNATIONAL NORM RATIO 1.1 (0.9-1.1); Prothrombin Time 12.3 SEC (9.9-13.0)
[2021-06-14 19:01] LABS: Partial Thromboplastin Time 35.8 SEC (24.1-38.0)
[2021-06-14 19:11] LABS: Alanine Aminotransferase 35 U/L (0-40); Albumin Level 4.3 g/dL (3.5-5.0); Alkaline Phosphatase 132 U/L (39-117); Anion Gap 15 (12-20); Aspartate Amino Transferase 31 U/L (5-37); Bilirubin Total 0.6 mg/dL (0.0-1.0); Blood Urea Nitrogen 17 mg/dL (9-16); Calcium 9.9 mg/dL (8.4-10.2); Carbon Dioxide 23 mmol/L (22-29); Chloride 102 mmol/L (96-108); Creatinine Clr Calc Pharmacy 101.3; Estimated Glomerular Filt Rate > 60; Glucose Random 170 mg/dL (60-115); Magnesium 1.9 mg/dL (1.6-2.6); Potassium 3.7 mmol/L (3.3-5.1); Sodium 136 mmol/L (135-145); Total Protein 7.8 g/dL (6.5-8.0)
[2021-06-14 19:17] LABS: Troponin-I High Sensitivity 3.5 ng/L (<3.5-35.0)
[2021-06-14 22:12] VITALS: BP 133/80; PULSE 92; RESP 24; O2SAT 97
[2021-06-14 22:45] LABS: Troponin-I High Sensitivity 3.8 ng/L (<3.5-35.0)
--- NOTE | 2021-06-15 00:43 | ECG_ITS ---
Test Reason : WEAKNESS Blood Pressure : / mmHG Vent. Rate : 086 BPM Atrial Rate : 086 BPM P-R Int : 164 ms QRS Dur : 088 ms QT Int : 364 ms P-R-T Axes : 044 007 016 degrees QTc Int : 435 ms Normal sinus rhythm Normal ECG When compared with ECG of 14-JUN-2021 17:46, ST now depressed in Inferior leads Non-specific change in ST segment in Lateral leads T wave inversion no longer evident in Anterolateral leads Referred By: Marc Vanessa Electronically Signed By:Rajiv Jean
== END 2021-06-14 23:09 | disposition home or self-care (01) ==
PROVIDERS: Emergency Provider Internal Medicine; PCP Internal Medicine
DX: R07.9 Chest pain, unspecified (principal); I10 Essential (primary) hypertension; E78.5 Hyperlipidemia, unspecified; E11.9 Type 2 diabetes mellitus without complications; I48.0 Paroxysmal atrial fibrillation; Z79.01 Long term (current) use of anticoagulants; Z79.02 Long term (current) use of antithrombotics/antiplatelets; Z79.899 Other long term (current) drug therapy
CPT/HCPCS: 36415; 80053; 83735; 84484; 85025; 85610; 85730; 93005; 99283; 99284

== ENCOUNTER → 2021-08-15 09:30 | Outpatient (BNVA) | payer MEDICAID, SELFPAY | PROVIDERS: PCP Internal Medicine; Referring Provider Internal Medicine; Visit Provider Surgery | DX: K61.0 Anal abscess (principal) | CPT/HCPCS: 99202 ==

== ENCOUNTER → 2021-09-04 10:08 | Outpatient (BNVA) | payer MEDICAID, SELFPAY | PROVIDERS: PCP Internal Medicine; Referring Provider Internal Medicine; Visit Provider Nurse Practitioner Family | DX: D18.03 Hemangioma of intra-abdominal structures (principal); K21.9 Gastro-esophageal reflux disease without esophagitis; K59.04 Chronic idiopathic constipation | CPT/HCPCS: 99212 ==

== ENCOUNTER → 2021-09-21 10:28 | Day surgery (SDC) | payer MEDICAID, SELFPAY ==
[2021-08-27 12:46] VITALS: BMI 37.5
[2021-08-27 12:51] VITALS: BP 138/86; PULSE 75; RESP 16; O2SAT 97
--- NOTE | 2021-08-27 12:54 | HO.ANESPROP2 ---
HPI - Anesthesia Eval Consult details Narrative: Delay in room DOS. Pt to reschedule 56yo M for Exam Under Anesthesia, Possible I&D of perianal abcsess,Possible seton placement 09/21/21 Eliquis for aflutter/fib Per 05/2021 cardiology note: CAD, status post MS status post LJ with subsequent single-vessel Coronary artery bypass grafting, ray to LAD 04/2019 with left atrial occlusion with atrial clip and bilateral pulmonary vein isolation at that time.? [facility] [place] admission 01/12/2021 with chest discomfort.? EKGs without ischemic changes.? Troponins normal x3.? He underwent a nuclear perfusion scan on 01/15 which showed normal myocardial perfusion imaging with preserved EF. 06/2021. [facility] [facility] [place], dx = anxiety. None since. [facility] Active Problems Active Problems: All Active Problems (Updated 08/27/21 @ 12:45 by Katia Pacheco RN) CAD (coronary artery disease) (Acute) Atrial flutter (Acute) Hypertension (Acute) History of open heart surgery (Acute) Gastroesophageal reflux disease (Acute) TIA (transient ischemic attack) (Acute) Perianal abscess (Acute) Past Medical History Medical History Adhesive capsulitis of left shoulder Arthritis Asthma Cellulitis Depression Diabetes GERD (gastroesophageal reflux disease) Gout History of panic attacks Hx of myocardial infarction Low back pain Migraines Scoliosis Seizures Tubular adenoma Family History Family History Father No problems noted. Mother History of stomach cancer History of liver cancer Brother No problems noted. Family history of problems with anesthesia: No Surgical History Surgical History H/O colonoscopy History of angioplasty History of appendectomy History of esophagogastroduodenoscopy (EGD) History of sinus surgery History of umbilical hernia repair History of Problems with Anesthesia: No Social History Social History Household Members: Children Are you a primary adult caregiver to a significant other at home: Yes (sons 12+13, mother will help post-op) Do you presently have visiting nurse or other home services: No Alcohol intake: never Patient Tobacco Use Status: Never used Tobacco Use of substances other than those prescribed or required for medical reasons: No Have you been hit, kicked, punched, or otherwise hurt by someone within the past year? If so, by whom?: No Are you DNR?: No Advance Directives: No Advance Directives Information Provided: Yes Advance Directives on File: No Recently lost weight without trying: No Nutrition Risks: No Nutritional Risk Poor oral hygiene: No Current occupational status: disabled Narrative Narrative: No recent illness No CP/SOB with regular exercise FBS ~100 Meds Allergies Allergy/AdvReac Type Severity Reaction Status Date / Time Iodinated Contrast Media Allergy Intermediate Difficulty Verified 09/04/21 10:34 [IV CONTRAST] Breathing Penicillins Allergy Mild RASH Verified 09/04/21 10:34 Sulfa (Sulfonamide Allergy Mild RASH Verified 09/04/21 10:34 Antibiotics) codeine AdvReac Mild STOMACH Verified 09/04/21 10:34 UPSET Docusate Calcium Allergy Mild rash Uncoded 08/15/21 09:52 Home Medications Medication Instructions Recorded Confirmed Last Taken Type allopurinol 100 mg tablet 200 mg PO BID 02/17/20 08/27/21 Unknown History amlodipine 10 mg tablet 10 mg PO DAILY 02/17/20 08/27/21 09/21/21 History chlorthalidone 50 mg tablet 50 mg PO DAILY 02/17/20 08/27/21 Unknown History fenofibrate 160 mg tablet 160 mg PO DAILY 02/17/20 08/27/21 Unknown History metformin 500 mg tablet 500 mg PO BID 02/17/20 08/27/21 Unknown History tramadol 50 mg tablet 50 mg PO DAILY PRN Pain 02/17/20 08/27/21 Unknown History glipizide 10 mg tablet 10 mg PO DAILY 10/25/20 08/27/21 Unknown History metoprolol succinate 50 mg 75 mg PO BID 10/25/20 08/27/21 09/21/21 History tablet,extended release 24 hr niacin 500 mg tablet,extended 500 mg PO BEDTIME cholesterol 10/25/20 08/27/21 Unknown History release 24 hr cholecalciferol (vitamin D3) 50 50 mcg PO QAM 01/29/21 08/27/21 Unknown History mcg (2,000 unit) capsule fluticasone propionate 110 1 puff inhalation BID 01/29/21 08/27/21 Unknown History mcg/actuation HFA aerosol inhaler (Flovent HFA) loratadine 10 mg tablet 10 mg PO DAILY 01/29/21 08/27/21 09/21/21 History DM 10 mg-acetaminophen 325 mg-GG 2 cap PO Q4H 08/15/21 08/15/21 Unknown History 200 mg capsule (Coricidin HBP Max Zoyh-Sya-Bij) acetaminophen 500 mg capsule 500 mg PO Q8H PRN Pain 08/15/21 08/27/21 Unknown History (Mapap (acetaminophen)) ciprofloxacin HCl 500 mg tablet 500 mg PO Q12H 08/15/21 08/15/21 Unknown History losartan 50 mg tablet 50 mg PO QAM 08/15/21 08/27/21 Unknown History albuterol sulfate 2.5 mg inhalation TID 08/27/21 08/27/21 Unknown History albuterol sulfate 90 mcg/actuation 2 puff inhalation Q4-6H PRN 08/27/21 08/27/21 Unknown History aerosol inhaler Shortness Of Breath Or Wheezing atorvastatin 80 mg tablet 1 tab PO BEDTIME 08/27/21 08/27/21 Unknown History cyclobenzaprine 10 mg tablet 10 mg PO TID PRN Pain 08/27/21 08/27/21 Unknown History dulaglutide 1.5 mg/0.5 mL 1.5 mg subcut QWEEK 08/27/21 08/27/21 Unknown History subcutaneous pen injector (Trulicity) famotidine 20 mg tablet 20 mg PO BID 08/27/21 08/27/21 Unknown History fluticasone propionate 110 2 puff inhalation BID 08/27/21 08/27/21 Unknown History mcg/actuation HFA aerosol inhaler (Flovent HFA) hydrocortisone 2.5 % topical cream HI 08/27/21 08/27/21 Unknown History with perineal applicator (Proctozone-HC) nitroglycerin 0.4 mg sublingual 0.4 mg sublingual Q5M PRN Chest 08/27/21 08/27/21 Unknown History tablet Pain omega-3 fatty acids-fish oil 360 2 cap PO BID 08/27/21 08/27/21 Unknown History mg-1,200 mg capsule (Fish Oil) omeprazole 40 mg capsule,delayed 40 mg PO DAILY 08/27/21 08/27/21 09/21/21 History release sennosides 8.6 mg tablet (Natural 17.2 mg PO BEDTIME PRN Constipation 08/27/21 08/27/21 Unknown History Senna Laxative) Exam Exam Date and Time: August 27, 2021 1254 Height,Weight and Vital Signs: Height 5 ft 9 in Weight 115.2 kg Last Vital Signs Pulse 75 08/27/21 12:51 Resp 16 08/27/21 12:51 BP 138/86 08/27/21 12:51 Pulse Ox 97 08/27/21 12:51 O2 Del Method 08/27/21 12:51 Narrative Narrative: EKG 01/2021 Vent. Rate : 086 BPM ? ? Atrial Rate : 086 BPM ?? P-R Int : 164 ms? QRS Dur : 088 ms ? ? QT Int : 364 ms ? ? ? P-R-T Axes : 044 007 016 degrees ?? QTc Int : 435 ms ? Normal sinus rhythm Normal ECG When compared with ECG of 14-JUN-2021 17:46, T wave inversion no longer evident in Anterolateral leads Nuc Stress 01/2021 1. Myocardial perfusion imaging is normal without any fixed or reversible perfusion defect after regadenoson infusion 2. LV function is normal at rest and after IV admin with normal wall motion thickening ECHO 01/2021 LV poorly visualized. LV size is normal. LV wall thicknes is increased. OVeral LV systolic function appears vigorous on limited views. Cannot assess regional wall motion abnormalities. Aortic valve is poorly visualized. Aortic valve appears mildly to moderately thickened. Aortic valve leaflet opening is normal RV is poorly visualized MRI brain 01/2021 No acute intracranial findings. Airway Mallampati Class: III TM Dist: >3cm (Thick neck) Neck ROM: Full Loose/Missing/Broken Teeth: Yes (Molars broken) Heart: RRR Lungs: CTAB Assessment and Plan Assessment Anesthesia Assessment: Anesthesia Plan Discussed and PAT Visit Final Anesthetic Review Family History of Problems with Anesthesia: No History of Problems with Anesthesia: No
[2021-09-21] MEDS: Lactated Ringers 1,000 ML 50 ML IVCONT (11:27)
[2021-09-21 11:33] LABS: Glucose, Whole Blood 122 mg/dL (60-115)
--- NOTE | 2021-09-21 13:09 | PC.NURSE ---
spoke to patient with [facility]od carrier to give patient the option to cancel or await for md alessio to be done with another patient. patient aware of the plan and wants to reschedule and doesnt want to wait.
== END ==
PROVIDERS: PCP Internal Medicine; Visit Provider Surgery
DX: K61.0 Anal abscess (principal); Z53.29 Procedure and treatment not carried out because of patient's decision for other reasons; E11.9 Type 2 diabetes mellitus without complications; Z88.0 Allergy status to penicillin; I10 Essential (primary) hypertension; Z88.2 Allergy status to sulfonamides; Z88.8 Allergy status to other drugs, medicaments and biological substances; Z79.82 Long term (current) use of aspirin; Z79.84 Long term (current) use of oral hypoglycemic drugs
CPT/HCPCS: 82947

== ENCOUNTER 2021-10-19 06:49 | Day surgery (SDC) | payer MEDICAID, SELFPAY ==
[2021-10-08 11:43] VITALS: BMI 36.6
--- NOTE | 2021-10-18 08:48 | P.CONAN_ITS ---
Documented by User: Catherine Leahy NP 10/18/21 08:49 HPI - Anesthesia Eval Consult details Narrative: 56yo M for Exam Under Anesthesia, Possible I&D of perianal abcsess,Possible seton placement 09/21/21 Eliquis for aflutter/fib Per 05/2021 cardiology note: CAD, status post [place] status post LJ with subsequent single-vessel Coronary artery bypass grafting, ray to LAD 04/2019 with left atrial occlusion with atrial clip and bilateral pulmonary vein isolation at that time.? [facility] [facility] [place] with chest discomfort.? EKGs without ischemic changes.? Troponins normal x3.? He underwent a nuclear perfusion scan on 01/15 which showed normal myocardial perfusion imaging with preserved EF. 06/2021. [facility] [place] visit for atypical CP, dx = anxiety. None since. [facility] Active Problems Active Problems: All Active Problems (Updated 10/08/21 @ 11:42 by Katia Pacheco, BUFFY) Gastroesophageal reflux disease (Acute) TIA (transient ischemic attack) (Acute) CAD (coronary artery disease) (Acute) Atrial flutter (Acute) Hypertension (Acute) History of open heart surgery (Acute) Perianal abscess (Acute) Past Medical History Medical History (Updated 10/08/21 @ 11:42 by Katia Pacheco, BUFFY) Adhesive capsulitis of left shoulder Arthritis Asthma Atrial flutter CAD (coronary artery disease) Cellulitis Depression Diabetes GERD (gastroesophageal reflux disease) Gout History of panic attacks Hx of myocardial infarction Hypertension Low back pain Migraines Perianal abscess Scoliosis Seizures Tubular adenoma Family History Family History Father No problems noted. Mother History of stomach cancer History of liver cancer Brother No problems noted. Family history of problems with anesthesia: No Surgical History Surgical History H/O colonoscopy History of angioplasty History of appendectomy History of esophagogastroduodenoscopy (EGD) History of open heart surgery History of sinus surgery History of umbilical hernia repair History of Problems with Anesthesia: No Social History Social History Household Members: Children Are you a primary career services assistant to a significant other at home: Yes (children) Do you presently have visiting nurse or other home services: No Alcohol intake: never Patient Tobacco Use Status: Never used Tobacco Current occupational status: disabled Meds Allergies Allergy/AdvReac Type Severity Reaction Status Date / Time Iodinated Contrast Media Allergy Intermediate Difficulty Verified 09/04/21 10:34 [IV CONTRAST] Breathing Penicillins Allergy Mild RASH Verified 09/04/21 10:34 Sulfa (Sulfonamide Allergy Mild RASH Verified 09/04/21 10:34 Antibiotics) codeine AdvReac Mild STOMACH Verified 09/04/21 10:34 UPSET Docusate Calcium Allergy Mild rash Uncoded 08/15/21 09:52 Home Medications Medication Instructions Recorded Confirmed Last Taken Type allopurinol 100 mg tablet 200 mg PO BID 02/17/20 08/27/21 Unknown History amlodipine 10 mg tablet 10 mg PO DAILY 02/17/20 08/27/21 09/21/21 History chlorthalidone 50 mg tablet 50 mg PO DAILY 02/17/20 08/27/21 Unknown History fenofibrate 160 mg tablet 160 mg PO DAILY 02/17/20 08/27/21 Unknown History metformin 500 mg tablet 500 mg PO BID 02/17/20 08/27/21 Unknown History tramadol 50 mg tablet 50 mg PO DAILY PRN Pain 02/17/20 08/27/21 Unknown History glipizide 10 mg tablet 10 mg PO DAILY 10/25/20 08/27/21 Unknown History metoprolol succinate 50 mg 75 mg PO BID 10/25/20 08/27/21 09/21/21 History tablet,extended release 24 hr niacin 500 mg tablet,extended 500 mg PO BEDTIME cholesterol 10/25/20 08/27/21 Unknown History release 24 hr cholecalciferol (vitamin D3) 50 50 mcg PO QAM 01/29/21 08/27/21 Unknown History mcg (2,000 unit) capsule fluticasone propionate 110 1 puff inhalation BID 01/29/21 08/27/21 Unknown History mcg/actuation HFA aerosol inhaler (Flovent HFA) loratadine 10 mg tablet 10 mg PO DAILY 01/29/21 08/27/21 09/21/21 History DM 10 mg-acetaminophen 325 mg-GG 2 cap PO Q4H 08/15/21 08/15/21 Unknown History 200 mg capsule (Coricidin HBP Max Vyty-Uns-Pur) acetaminophen 500 mg capsule 500 mg PO Q8H PRN Pain 08/15/21 08/27/21 Unknown History (Mapap (acetaminophen)) ciprofloxacin HCl 500 mg tablet 500 mg PO Q12H 08/15/21 08/15/21 Unknown History losartan 50 mg tablet 50 mg PO QAM 08/15/21 08/27/21 Unknown History albuterol sulfate 2.5 mg/3 mL 2.5 mg inhalation TID 08/27/21 08/27/21 Unknown History (0.083 %) solution for nebulization albuterol sulfate 90 mcg/actuation 2 puff inhalation Q4-6H PRN 08/27/21 08/27/21 Unknown History aerosol inhaler Shortness Of Breath Or Wheezing atorvastatin 80 mg tablet 1 tab PO BEDTIME 08/27/21 08/27/21 Unknown History cyclobenzaprine 10 mg tablet 10 mg PO TID PRN Pain 08/27/21 08/27/21 Unknown History dulaglutide 1.5 mg/0.5 mL 1.5 mg subcut QWEEK 08/27/21 08/27/21 Unknown History subcutaneous pen injector (Trulicity) famotidine 20 mg tablet 20 mg PO BID 08/27/21 08/27/21 Unknown History fluticasone propionate 110 2 puff inhalation BID 08/27/21 08/27/21 Unknown History mcg/actuation HFA aerosol inhaler (Flovent HFA) hydrocortisone 2.5 % topical cream VA 08/27/21 08/27/21 Unknown History with perineal applicator (Proctozone-HC) nitroglycerin 0.4 mg sublingual 0.4 mg sublingual Q5M PRN Chest 08/27/21 08/27/21 Unknown History tablet Pain omega-3 fatty acids-fish oil 360 2 cap PO BID 08/27/21 08/27/21 Unknown History mg-1,200 mg capsule (Fish Oil) omeprazole 40 mg capsule,delayed 40 mg PO DAILY 08/27/21 08/27/21 09/21/21 History release sennosides 8.6 mg tablet (Natural 17.2 mg PO BEDTIME PRN Constipation 08/27/21 08/27/21 Unknown History Senna Laxative) Exam Exam Date and Time: October 18, 2021 0848 Height,Weight and Vital Signs: Height 5 ft 9 in Weight 112.491 kg Narrative Narrative: EKG 01/2021 Vent. Rate : 086 BPM ? ? Atrial Rate : 086 BPM ?? P-R Int : 164 ms? QRS Dur : 088 ms ? ? QT Int : 364 ms ? ? ? P-R-T Axes : 044 007 016 degrees ?? QTc Int : 435 ms ? Normal sinus rhythm Normal ECG When compared with ECG of 14-JUN-2021 17:46, T wave inversion no longer evident in Anterolateral leads Nuc Stress 01/2021 1. Myocardial perfusion imaging is normal without any fixed or reversible perfusion defect after regadenoson infusion 2. LV function is normal at rest and after IV admin with normal wall motion thickening ECHO 01/2021 LV poorly visualized. LV size is normal. LV wall thicknes is increased. OVeral LV systolic function appears vigorous on limited views. Cannot assess regional wall motion abnormalities. Aortic valve is poorly visualized. Aortic valve appears mildly to moderately thickened. Aortic valve leaflet opening is normal RV is poorly visualized MRI brain 01/2021 No acute intracranial findings. Airway Mallampati Class: III TM Dist: >3cm (Thick neck) Neck ROM: Full Loose/Missing/Broken Teeth: Yes (Molars broken) Heart: RRR Lungs: CTAB Assessment and Plan Assessment Anesthesia Assessment: Chart Reviewed Final Anesthetic Review Family History of Problems with Anesthesia: No History of Problems with Anesthesia: No Documented by User: Niels Hackett MD 10/19/21 12:28 HPI - Anesthesia Eval Consult details Narrative: 56yo M for Exam Under Anesthesia, Possible I&D of perianal abcsess,Possible seton placement 09/21/21 Eliquis for aflutter/fib Per 05/2021 cardiology note: CAD, status post WI status post LJ with subsequent single-vessel Coronary artery bypass grafting, rya to LAD 04/2019 with left atrial occlusion with atrial clip and bilateral pulmonary vein isolation at that time.? [facility] admission 01/12/2021 with chest discomfort.? EKGs without ischemic changes.? Troponins normal x3.? He underwent a nuclear perfusion scan on 01/15 which showed normal myocardial perfusion imaging with preserved EF. 06/2021. [facility] [place] visit for atypical CP, dx = anxiety. None since. back pain with radiation to upper and lower extremities [facility] Past Medical History Medical History (Updated 10/08/21 @ 11:42 by Katia Pacheco RN) Adhesive capsulitis of left shoulder Arthritis Asthma Atrial flutter CAD (coronary artery disease) Cellulitis Depression Diabetes GERD (gastroesophageal reflux disease) Gout History of panic attacks Hx of myocardial infarction Hypertension Low back pain Migraines Perianal abscess Scoliosis Seizures Tubular adenoma Family History Family History Father No problems noted. Mother History of stomach cancer History of liver cancer Brother No problems noted. Surgical History Surgical History H/O colonoscopy History of angioplasty History of appendectomy History of esophagogastroduodenoscopy (EGD) History of open heart surgery History of sinus surgery History of umbilical hernia repair Social History Social History Household Members: Children Are you a primary career services assistant to a significant other at home: Yes (children) Do you presently have visiting nurse or other home services: No Alcohol intake: never Patient Tobacco Use Status: Never used Tobacco Current occupational status: disabled Meds Allergies Allergy/AdvReac Type Severity Reaction Status Date / Time Iodinated Contrast Media Allergy Intermediate Difficulty Verified 09/04/21 10:34 [IV CONTRAST] Breathing Penicillins Allergy Mild RASH Verified 09/04/21 10:34 Sulfa (Sulfonamide Allergy Mild RASH Verified 09/04/21 10:34 Antibiotics) codeine AdvReac Mild STOMACH Verified 09/04/21 10:34 UPSET Docusate Calcium Allergy Mild rash Uncoded 08/15/21 09:52 Home Medications Medication Instructions Recorded Confirmed Last Taken Type allopurinol 100 mg tablet 200 mg PO BID 02/17/20 08/27/21 Unknown History amlodipine 10 mg tablet 10 mg PO DAILY 02/17/20 08/27/21 09/21/21 History chlorthalidone 50 mg tablet 50 mg PO DAILY 02/17/20 08/27/21 Unknown History fenofibrate 160 mg tablet 160 mg PO DAILY 02/17/20 08/27/21 Unknown History metformin 500 mg tablet 500 mg PO BID 02/17/20 08/27/21 Unknown History tramadol 50 mg tablet 50 mg PO DAILY PRN Pain 02/17/20 08/27/21 Unknown History glipizide 10 mg tablet 10 mg PO DAILY 10/25/20 08/27/21 Unknown History metoprolol succinate 50 mg 75 mg PO BID 10/25/20 08/27/21 09/21/21 History tablet,extended release 24 hr niacin 500 mg tablet,extended 500 mg PO BEDTIME cholesterol 10/25/20 08/27/21 Unknown History release 24 hr cholecalciferol (vitamin D3) 50 50 mcg PO QAM 01/29/21 08/27/21 Unknown History mcg (2,000 unit) capsule fluticasone propionate 110 1 puff inhalation BID 01/29/21 08/27/21 Unknown History mcg/actuation HFA aerosol inhaler (Flovent HFA) loratadine 10 mg tablet 10 mg PO DAILY 01/29/21 08/27/21 09/21/21 History DM 10 mg-acetaminophen 325 mg-GG 2 cap PO Q4H 08/15/21 08/15/21 Unknown History 200 mg capsule (Coricidin HBP Max Qgpn-Oaq-Jwr) acetaminophen 500 mg capsule 500 mg PO Q8H PRN Pain 08/15/21 08/27/21 Unknown History (Mapap (acetaminophen)) ciprofloxacin HCl 500 mg tablet 500 mg PO Q12H 08/15/21 08/15/21 Unknown History losartan 50 mg tablet 50 mg PO QAM 08/15/21 08/27/21 Unknown History albuterol sulfate 2.5 mg/3 mL 2.5 mg inhalation TID 08/27/21 08/27/21 Unknown History (0.083 %) solution for nebulization albuterol sulfate 90 mcg/actuation 2 puff inhalation Q4-6H PRN 08/27/21 08/27/21 Unknown History aerosol inhaler Shortness Of Breath Or Wheezing atorvastatin 80 mg tablet 1 tab PO BEDTIME 08/27/21 08/27/21 Unknown History cyclobenzaprine 10 mg tablet 10 mg PO TID PRN Pain 08/27/21 08/27/21 Unknown History dulaglutide 1.5 mg/0.5 mL 1.5 mg subcut QWEEK 08/27/21 08/27/21 Unknown History subcutaneous pen injector (Trulicity) famotidine 20 mg tablet 20 mg PO BID 08/27/21 08/27/21 Unknown History fluticasone propionate 110 2 puff inhalation BID 08/27/21 08/27/21 Unknown Hist ory mcg/actuation HFA aerosol inhaler (Flovent HFA) hydrocortisone 2.5 % topical cream VA 08/27/21 08/27/21 Unknown History with perineal applicator (Proctozone-HC) nitroglycerin 0.4 mg sublingual 0.4 mg sublingual Q5M PRN Chest 08/27/21 08/27/21 Unknown History tablet Pain omega-3 fatty acids-fish oil 360 2 cap PO BID 08/27/21 08/27/21 Unknown History mg-1,200 mg capsule (Fish Oil) omeprazole 40 mg capsule,delayed 40 mg PO DAILY 08/27/21 08/27/21 09/21/21 History release sennosides 8.6 mg tablet (Natural 17.2 mg PO BEDTIME PRN Constipation 08/27/21 08/27/21 Unknown History Senna Laxative) Exam Airway Partial: Upper and Lower Loose/Missing/Broken Teeth: Yes (Chipped upper tooth , poor dentition ) Assessment and Plan Assessment Anesthesia Assessment: Anesthesia Plan Discussed Final Anesthetic Review NPO: Yes ASA Class: III Final Preanesthetic Review: Meds/Allgs Chart Reviewed, Consent Obtained/Reviewed and Anes Risks/Benef Reviewed Patient Risk: Intermediate Procedure Risk: Intermediate Anesthetic Plan Anesthetic Plan: GA Disposition: Standard PACU
[2021-10-19] VITALS (8 sets, daily range): BP systolic 128–152; BP diastolic 64–89; PULSE 75–87; RESP 15–20; TEMP 36.1–36.6; O2SAT 93–97
[2021-10-19 07:18] LABS: Glucose, Whole Blood 147 mg/dL (60-115)
[2021-10-19] MEDS: Lactated Ringers 1,000 ML 100 ML IVCONT (07:20)
--- NOTE | 2021-10-19 08:04 | MHC.SHP ---
Pre-Procedural Eval Section A Date of Service: 10/19/21 Section B Chief Complaint: anal abscess Details of Present Illness: Has had recurrent drainage on the perianal area with along with swelling Relevant Social History: None Present Medications: see Short Stay Collaborative assessment Medical History: Significant History ( GERD, coronary disease, history of TIA, flutter) Allergies: Allergies Allergy/AdvReac Type Severity Reaction Status Date / Time Iodinated Contrast Media Allergy Intermediate Difficulty Verified 09/04/21 10:34 [IV CONTRAST] Breathing Penicillins Allergy Mild RASH Verified 09/04/21 10:34 Sulfa (Sulfonamide Allergy Mild RASH Verified 09/04/21 10:34 Antibiotics) codeine AdvReac Mild STOMACH Verified 09/04/21 10:34 UPSET Docusate Calcium Allergy Mild rash Uncoded 08/15/21 09:52 Review of Systems Sugical H&P ROS: Negative: Constitution, Cardiovascular, Respiratory, Neurological, Psychiatric, Hem-Onc, Allergic/Immunologic, Gastrointestinal, Genitourinary, Musculoskeletal, Integumentary, Endocrine and Eyes/Ears/Nose/Throat Exam Surgical H&P Exam: Normal: HEENT, Normal: Lungs, Normal: Extremities, Normal: Abdomen, Normal: Skin and Normal: Neurological and Significant Findings: Heart ( irregular) Plan Diagnosis/Plan: Unchanged I have reviewed the history and physical and performed a pertinent physical examination on my patient. No changes have occurred unless specified.
--- NOTE | 2021-10-19 10:07 | W.PM.OPN ---
Operative Note Operative Note Date of Service: 10/19/21 Narrative: Preop diagnosis: Anal fistula Postop diagnosis: Anal fistula Procedure: Exam under anesthesia, placement of seton Surgeon: Cristian Shah MD The patient is a 56-year-old male with an area of recurrent drainage, swelling and pain in the anus. Examination revealed a sinus on the right perianal area with induration. I explained to him it would be best to proceed with exam under anesthesia and likely placement of a seton. I reviewed with him the technique of this procedure as well as the risks, benefits, and alternatives and had given consent. Brought to the operating room. He was placed in prone narendra-knife position under general anesthesia via endotracheal tube. The buttocks were retracted with wide tape laterally. The perianal area was prepped and draped in the usual sterile fashion. A surgical time-out was done. The patient received Cefotan 2 g IV preoperatively Again there was note of an induration on the right perianal area a little anteriorly with a sinus about 1 cm from the verge. There were no other lesions. He did have some external hemorrhoids on both the left and right side with chronic cirrhosis. There was note of external hemorrhoidal tissue on the left that appeared indurated as well I inserted abuse Hunt retractor. I examined the anal canal circumferentially. There was note of what appeared to be an induration on the right anal canal at the dentate line. I was able to pass a probe through the external sinus easily through this a trach all the way to the internal sinus the dentate line. I passed the yellow was vessel loop as a seton this probe. I looped the seton and tied this with a silk 2 0 tie to close the loop. I examined the rest of the anal canal. There were no other lesions seen. There were no other obvious fistulous openings There was note of a little bit of induration on 1 of the external hemorrhoidal columns. I opened this to make sure that there was no pus. I cauterized this area I irrigated this and infiltrated the perianal Marcaine 0.5% for postop analgesia. The procedure was completed. The patient tolerated procedure well. There were no immediate complications. The patient was extubated without difficulty and transferred to the recovery room with stable vital signs. Estimated blood loss wasd about 5 cc.
[2021-10-19] MEDS: oxyCODONE HCl Immed Release 5 MG TABLET PO (10:51)
[2021-10-19] MEDS: Acetaminophen 325 MG TABLET 650 MG PO (10:51)
== END 2021-10-19 11:52 | disposition home or self-care (01) ==
PROVIDERS: PCP Internal Medicine; Visit Provider Surgery
PROC: (CPT 46020; principal; 2021-10-19 09:10)
DX: K60.3 Anal fistula (principal); I25.10 Atherosclerotic heart disease of native coronary artery without angina pectoris; I25.2 Old myocardial infarction; I10 Essential (primary) hypertension; Z98.61 Coronary angioplasty status; Z95.1 Presence of aortocoronary bypass graft; I48.92 Unspecified atrial flutter; K21.9 Gastro-esophageal reflux disease without esophagitis; J45.909 Unspecified asthma, uncomplicated; E11.9 Type 2 diabetes mellitus without complications; Z79.84 Long term (current) use of oral hypoglycemic drugs; Z79.01 Long term (current) use of anticoagulants; Z79.82 Long term (current) use of aspirin; Z79.51 Long term (current) use of inhaled steroids; Z79.899 Other long term (current) drug therapy; Z91.041 Radiographic dye allergy status; Z88.0 Allergy status to penicillin; Z86.73 Personal history of transient ischemic attack (TIA), and cerebral infarction without residual deficits; Z88.2 Allergy status to sulfonamides; Z88.8 Allergy status to other drugs, medicaments and biological substances
CPT/HCPCS: 46020; 82947; J1170; J2250; J2795; J3010

== ENCOUNTER 2021-10-23 09:10 | Outpatient (REF) | payer MEDICAID, SELFPAY ==
--- NOTE | ~2021-10-23 | US_ITS ---
EXAMINATION: US ABDOMEN LIMITED CLINICAL INFORMATION: Hemangioma of intra-abdominal structures. COMPARISON: CT abdomen and pelvis 10/24/2020. Ultrasound abdomen complete 05/28/2016. Renal ultrasound 03/10/2015. TECHNIQUE: Real-time imaging of the right upper quadrant abdominal viscera. FINDINGS: PANCREAS: Normal. LIVER: The liver is normal in size. The liver contour is normal. The liver is diffusely echogenic. Hemangioma seen in the right hepatic lobe on CT is not visualized by ultrasound. No focal hepatic lesion. There is no intrahepatic biliary duct dilatation seen. GALLBLADDER: Normal. The gallbladder is physiologically distended without evidence of stones, sludge, polyps, wall thickening or pericholecystic fluid. COMMON BILE DUCT: Normal in caliber measuring 0.3 cm in diameter. RIGHT KIDNEY: No hydronephrosis or renal calculi. The kidney measures 11.8 cm in maximum dimension. There is anechoic cyst upper pole with septation measuring 2.9 x 2.2 x 3.7 cm, question complex cyst. FREE FLUID: None. US/US abdomen limited IMPRESSION: Complex upper pole cyst right kidney. No focal liver lesion seen at this time. The liver, gallbladder, CBD and pancreas unremarkable.
== END 2021-10-23 09:11 | disposition home or self-care (01) ==
LOC: HO.US 09:10
PROVIDERS: Visit Provider Nurse Practitioner Family
DX: D18.03 Hemangioma of intra-abdominal structures (principal)
CPT/HCPCS: 76705

== ENCOUNTER 2021-12-03 11:25 | Outpatient (REF) | payer MEDICAID, SELFPAY ==
--- NOTE | ~2021-12-03 | US_ITS ---
EXAMINATION: US ABDOMEN LIMITED CLINICAL INFORMATION: Tender right upper quadrant. COMPARISON: Ultrasound abdomen limited 10/23/2021 TECHNIQUE: Real-time imaging of the right upper quadrant abdominal viscera. FINDINGS: PANCREAS: Visualized portions of the pancreas are unremarkable. The pancreatic tail is obscured by bowel gas. LIVER: Liver is enlarged measuring at least 20.6 m in span. The liver contour is normal. There is diffuse increased liver parenchymal echogenicity, consistent with hepatic steatosis. No definite focal lesion is seen, but evaluation is limited due to poor sound beam penetration through the coarse echogenic liver parenchyma. There is no intrahepatic biliary duct dilatation seen. GALLBLADDER: The gallbladder is physiologically distended without evidence of stones, sludge, polyps, wall thickening or pericholecystic fluid. COMMON BILE DUCT: Normal in caliber measuring 0.5 cm in diameter. RIGHT KIDNEY: Likely benign renal cyst with a thin internal septation measuring 2.7 cm, previously 3.7 cm No imaging follow-up recommended. No hydronephrosis or renal calculi. The kidney measures 11.9 cm in maximum dimension. FREE FLUID: None. US/US abdomen limited IMPRESSION: Hepatomegaly and hepatic steatosis.
--- NOTE | ~2021-12-03 | XR_ITS ---
EXAMINATION: XR RIBS, RIGHT CLINICAL INFORMATION: Trauma COMPARISON: None TECHNIQUE: 3 views of the right ribs were obtained. FINDINGS: Lungs are clear. No consolidation, pneumothorax, or pleural effusion. The cardiomediastinal silhouette and pulmonary vasculature are normal. Median sternotomy wires and sternotomy hardware and left atrial appendage clip. No displaced rib fracture XR/XR ribs RT min 3V w [id number] IMPRESSION: No displaced rib fracture. Please note that rib radiographs have low sensitivity for detection of rib fractures and if continued clinical concern CT chest is advised.
== END 2021-12-03 11:26 | disposition home or self-care (01) ==
LOC: HO.US 11:25
PROVIDERS: Absent Provider Internal Medicine; PCP Internal Medicine; Visit Provider Emergency Medicine
DX: S29.9XXA Unspecified injury of thorax, initial encounter (principal); X58.XXXA Exposure to other specified factors, initial encounter; Y93.9 Activity, unspecified; Y92.9 Unspecified place or not applicable; Y99.9 Unspecified external cause status
CPT/HCPCS: 71101; 76705

== ENCOUNTER 2021-12-07 18:48 | Emergency (ER) | payer MEDICAID, SELFPAY ==
--- NOTE | 2021-12-07 | ECG_ITS ---
Test Reason : cp Blood Pressure : / mmHG Vent. Rate : 095 BPM Atrial Rate : 095 BPM P-R Int : 128 ms QRS Dur : 098 ms QT Int : 380 ms P-R-T Axes : 018 052 -66 degrees QTc Int : 477 ms Normal sinus rhythm ST & T wave abnormality, consider inferolateral ischemia Prolonged QT Abnormal ECG When compared with ECG of 15-JUN-2021 00:43, ST now depressed in Inferior leads ST now depressed in Lateral leads T wave inversion now evident in Inferior leads T wave amplitude has increased in Anterior leads T wave inversion now evident in Lateral leads Referred By: Isabella Metzger Electronically Signed By:ALRA AMAYA
--- NOTE | ~2021-12-07 | CT_ITS ---
EXAMINATION: CT CHEST WITHOUT CONTRAST CLINICAL INFORMATION: Pain and tachycardia COMPARISON: CT chest dated 04/21/2018 TECHNIQUE: Multidetector volumetric CT imaging of the chest was done. Axial MIP volume rendering provided. Sagittal and coronal reformatted images were obtained. This CT examination was performed using dose optimization techniques as appropriate, variously including the following: *Automated exposure control *Adjustment of mA and/or kV according to patient size (this includes techniques or standardized protocols for targeted exams where dose is matched to indication/reason for exam; i.e. extremities or head) *Use of iterative reconstruction technique DLP: 342 mGy-cm FINDINGS: LUNGS: No parenchymal consolidation or pneumonitis. No significant bronchial wall thickening or bronchiectasis. No parenchymal fibrotic changes. No suspicious pulmonary nodules. MEDIASTINUM: Mild cardiomegaly. No pericardial effusion. Great vessels normal caliber. No mediastinal or hilar lymphadenopathy. Imaged thyroid gland unremarkable. CORONARY ARTERY CALCIFICATION: Triple vessel coronary calcifications. PLEURA: There is no pleural effusion. No pleural mass or thickening. AXILLA: No lymphadenopathy. UPPER ABDOMEN: Hepatic steatosis. OSSEOUS STRUCTURES: No acute or suspicious osseous abnormalities. CT/CT chest wo IV con IMPRESSION: * No acute findings. * Mild cardiomegaly and triple vessel coronary calcifications. * Hepatic steatosis.
--- NOTE | ~2021-12-07 | XR_ITS ---
EXAMINATION: XR CHEST CLINICAL INFORMATION: Pain COMPARISON: 12/03/2021 TECHNIQUE: Frontal view of the chest was obtained. FINDINGS: Lungs are well expanded and clear. Cardiac silhouette is normal in size. Left atrial appendage clip in place. Sternotomy wires and sternal plates are noted. The pulmonary vascular pattern is normal. No pneumothorax or other significant change. XR/XR chest 1V IMPRESSION: No acute pulmonary disease compared to 12/03/2021.
[2021-12-07 19:00] VITALS: BP 148/73; PULSE 99; RESP 16; TEMP 36.9; O2SAT 99; BMI 35.6
[2021-12-07 19:30] VITALS: BP 124/63; PULSE 98; RESP 21; TEMP 36.7; O2SAT 94
--- NOTE | 2021-12-07 19:44 | PC.NURSE ---
Addendum entered by Madie Bernabe 12/07/21 19:48: Pt is crying d/t chest pain. Original Note: Pt V/S are stable, pt was connected to the telemetry and it shows NSR with a rare PVA. Pt is labs were drawn, IV was iserted a 20 G on his left forearm. will continue to monitor.
[2021-12-07 19:48] LABS: MANUAL DIFF FLAG NO
--- NOTE | 2021-12-07 19:56 | ED_ITS ---
HPI - Chest Pain General Chief Complaint: Chest Pain Stated Complaint: fall right flank pain Time Seen by Provider: 12/07/21 19:16 Source: patient Mode of arrival: ambulatory Limitations: language barrier History of Present Illness HPI narrative: 56-year-old male presents for evaluation of right-sided chest pain that was evaluated approximately 1 week ago at [facility]. He stated that he slipped and fell while he was in the bathtub and landed on his right side and was diagnosed with a rib contusion. He states the medications that he took or ineffective for his pain management. He states to have 10/10 pain and that the pain is progressively worsened the point where he cannot breathe. He does not report fevers or chills, palpitations, diaphoresis, abdominal pain, abdominal distention, dysuria, hematuria, edema, fevers or chills. MD complaint: chest pain Onset (ago): week(s) (1) Timing of current episode: constant Prior episodes: Yes Pain location: right chest Severity: severe Pain scale (0-10): 10 Quality: aching and shooting Relieving factors: nothing Exacerbating factors: exertion, inspiration, eating, palpation and movement Context: trauma/injury Risk Factors Coronary artery disease risk factors: diabetes, hyperlipidemia, hypertension and family history of CAD before age 50 Related Data Home Medications Medication Instructions Recorded Confirmed allopurinol 100 mg tablet 200 mg PO BID 02/17/20 08/27/21 amlodipine 10 mg tablet 10 mg PO DAILY 02/17/20 08/27/21 chlorthalidone 50 mg tablet 50 mg PO DAILY 02/17/20 08/27/21 fenofibrate 160 mg tablet 160 mg PO DAILY 02/17/20 08/27/21 metformin 500 mg tablet 500 mg PO BID 02/17/20 08/27/21 tramadol 50 mg tablet 50 mg PO DAILY PRN Pain 02/17/20 08/27/21 glipizide 10 mg tablet 10 mg PO DAILY 10/25/20 08/27/21 metoprolol succinate 50 mg 75 mg PO BID 10/25/20 08/27/21 tablet,extended release 24 hr niacin 500 mg tablet,extended 500 mg PO BEDTIME cholesterol 10/25/20 08/27/21 release 24 hr cholecalciferol (vitamin D3) 50 50 mcg PO QAM 01/29/21 08/27/21 mcg (2,000 unit) capsule fluticasone propionate 110 1 puff inhalation BID 01/29/21 08/27/21 mcg/actuation HFA aerosol inhaler (Flovent HFA) loratadine 10 mg tablet 10 mg PO DAILY 01/29/21 08/27/21 DM 10 mg-acetaminophen 325 mg-GG 2 cap PO Q4H 08/15/21 08/15/21 200 mg capsule (Coricidin HBP Max [id number]) acetaminophen 500 mg capsule 500 mg PO Q8H PRN Pain 08/15/21 08/27/21 (Mapap (acetaminophen)) ciprofloxacin HCl 500 mg tablet 500 mg PO Q12H 08/15/21 08/15/21 losartan 50 mg tablet 50 mg PO QAM 08/15/21 08/27/21 albuterol sulfate 2.5 mg/3 mL 2.5 mg inhalation TID 08/27/21 08/27/21 (0.083 %) solution for nebulization albuterol sulfate 90 mcg/actuation 2 puff inhalation Q4-6H PRN 08/27/21 08/27/21 aerosol inhaler Shortness Of Breath Or Wheezing atorvastatin 80 mg tablet 1 tab PO BEDTIME 08/27/21 08/27/21 cyclobenzaprine 10 mg tablet 10 mg PO TID PRN Pain 08/27/21 08/27/21 dulaglutide 1.5 mg/0.5 mL 1.5 mg subcut QWEEK 08/27/21 08/27/21 subcutaneous pen injector (Trulicity) famotidine 20 mg tablet 20 mg PO BID 08/27/21 08/27/21 fluticasone propionate 110 2 puff inhalation BID 08/27/21 08/27/21 mcg/actuation HFA aerosol inhaler (Flovent HFA) hydrocortisone 2.5 % topical cream MT 08/27/21 08/27/21 with perineal applicator (Proctozone-) nitroglycerin 0.4 mg sublingual 0.4 mg sublingual Q5M PRN Chest 08/27/21 08/27/21 tablet Pain omega-3 fatty acids-fish oil 360 2 cap PO BID 08/27/21 08/27/21 mg-1,200 mg capsule (Fish Oil) omeprazole 40 mg capsule,delayed 40 mg PO DAILY 08/27/21 08/27/21 release sennosides 8.6 mg tablet (Natural 17.2 mg PO BEDTIME PRN Constipation 08/27/21 08/27/21 Senna Laxative) Previous Rx's Medication Instructions Recorded aspirin 81 mg tablet,delayed 81 mg PO DAILY #120 tabs 04/17/20 release (Adult Aspirin Regimen) docusate sodium 100 mg capsule 100 mg PO BEDTIME #90 caps 01/29/21 oxycodone-acetaminophen 5 mg-325 1 tab PO Q4-6H PRN pain #30 tabs 10/19/21 mg tablet (Percocet) apixaban 5 mg tablet (Eliquis) 5 mg PO BID 90 days #180 tabs 11/14/21 Allergies Allergy/AdvReac Type Severity Reaction Status Date / Time Iodinated Contrast Media Allergy Intermediate Difficulty Verified 11/01/21 10:39 [IV CONTRAST] Breathing Penicillins Allergy Mild RASH Verified 11/01/21 10:39 Sulfa (Sulfonamide Allergy Mild RASH Verified 11/01/21 10:39 Antibiotics) codeine AdvReac Mild STOMACH Verified 11/01/21 10:39 UPSET Docusate Calcium Allergy Mild rash Uncoded 11/01/21 10:39 Review of Systems Review of Systems: Constitutional: No Fever, No Chills ENT/Mouth: No Ear Pain, No Hoarseness, No sore throat Eyes: No Eye Pain, No Swelling, No Redness, No Foreign Body Cardiovascular: No Chest Pain, No SOB Respiratory: No Cough, No Dyspnea Gastrointestinal: No Nausea, No Vomiting, No Diarrhea, No abdominal Pain Genitourinary: No Dysuria, No Hematuria Musculoskeletal: positive right chest wall pain, No Myalgias, No Joint Swelling Skin: No Skin lacerations, No rash Neuro: No Weakness, No Numbness, No Paresthesias, No Loss of Consciousness, No Dizziness, No Headache Psych: No Anxiety/Panic, No Depression Heme/Lymph: no easy bruising, no Lymphadenopathy Endocrine: No Polyuria, No Polydipsia Yes all other systems are reviewed and are negative [facility] Past Medical History Attestation statement: The following information was validated with the patient. Source: old records reviewed Medical History Adhesive capsulitis of left shoulder Anal fistula Arthritis Asthma Atrial flutter CAD (coronary artery disease) Cellulitis Depression Diabetes GERD (gastroesophageal reflux disease) Gout History of panic attacks Hx of myocardial infarction Hypertension Low back pain Migraines Perianal abscess Scoliosis Seizures Tubular adenoma Surgical History H/O colonoscopy History of angioplasty History of appendectomy History of esophagogastroduodenoscopy (EGD) History of incision and drainage (~10/19/21) History of open heart surgery History of sinus surgery History of umbilical hernia repair Family History Family History Father No problems noted. Mother History of stomach cancer History of liver cancer Brother No problems noted. Social History Social History Household Members: Children Are you a primary companion caregiver to a significant other at home: Yes (children) Do you presently have visiting nurse or other home services: No Alcohol intake: never Patient Tobacco Use Status: Never used Tobacco Use of substances other than those prescribed or required for medical reasons: No Advance Directives: No Advance Directives Information Provided: No Current occupational status: disabled Physical Exam Vital Signs: Vital Signs: Last Vital Signs Temp 98.0 F 12/07/21 19:30 Pulse 87 12/08/21 00:16 Resp 14 12/08/21 00:16 BP 122/75 12/08/21 00:16 Pulse Ox 95 12/08/21 00:16 O2 Del Method 12/08/21 00:16 BMI result Body Mass Index 35.6 Appearance: Alert. Oriented X3. Moderate distress. Eyes: Pupils equal, round and reactive to light. EOMI. Sclera nonicteric. ENT: Pharynx normal. Neck: Normal inspection. Neck supple. CVS: Normal heart rate and rhythm. Pulses normal. Reproducible chest pain, greater at the right chest wall. Respiratory: No respiratory distress. Breath sounds normal. Abdomen: Soft and nontender. Skin: Skin warm and dry. Normal skin color. Normal skin turgor. Extremities: No lower extremity edema. Gait well-balanced will coordinated. Neuro: No motor deficit. No sensory deficit. Cranial nerves 2-12 intact. Course Course Course Narrative: 56-year-old male presents with right-sided chest wall pain, was diagnosed with a rib contusion about a week ago after being evaluated at [facility]. He slipped and fell while he was in his tub and hit the right side of his chest wall on the bathtub. He was given tramadol and lidocaine patches for this pain however he says this is ineffective. He does have reproducible chest pain to palpation. Labs drawn while patient was in the emergency department waiting r oom, he does have a elevated BUN which is consistent with his prior values, will give 1 L of fluid. Chest x-ray is negative for acute findings. 21:35 patient complaining of 10/[address] scan at this time to rule out hematoma versus rib fracture versus internal organ injury. 00:06 CT scan negative for acute findings. At this time I do not feel comfortable ordering further narcotics. I did this in detail with the patient, he does understand and will follow up with his primary care physician. Patient verbalized understanding of and agrees to plan of care discharge home. 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 MDM - Chest Pain Differential Diagnosis Differential diagnosis: Likely fracture of rib and pneumothorax Medical Records Data Attestation: I reviewed the patient's medical records. Lab Data Attestation: I reviewed the patient's lab results. Result diagrams: 12/07/21 19:42 12/07/21 19:42 Labs: Lab Results 12/07/21 12/07/21 12/07/21 Range/Units 19:42 19:42 19:42 WBC 10.0 (4.8-10.8) X10*3/uL RBC 5.17 (4.60-5.80) X10*6/uL Hgb 14.5 (14.0-18.0) g/dl Hct 42.6 (42.0-52.0) % MCV 82.4 (80.0-98.0) fL MCH 28.0 (27.0-33.0) pg MCHC 34.0 (31.0-36.0) g/dl RDW 13.8 (11.0-16.0) % Plt Count 404 H (160-400) X10*3/uL MPV 9.7 (9.4-12.4) fL Immature Gran % (Auto) 0.2 (0.0-0.4) % Neut % (Auto) 44.3 L (45-73) % Lymph % (Auto) 45.0 H (20-40) % [place] % (Auto) 6.6 (2-11) % Eos % (Auto) 2.8 (0-4) % Baso % (Auto) 1.1 (0-2) % Lymph # (Auto) 4.5 (1.2-4.9) X10*3/uL [place] # (Auto) 0.7 (0.1-1.2) X10*3/uL Eos # (Auto) 0.3 (0.0-0.4) X10*3/uL Baso # (Auto) 0.1 (0.0-0.2) X10*3/uL Abs Immat Gran (auto) 0.02 (0.00-0.03) X10*3/uL Absolute Neuts (auto) 4.4 (2.0-8.3) x10*3/uL Absolute Nucleated RBC 0.000 (0.0-0.012) X10*3/uL Nucleated RBC % (auto) 0.0 (0.0-0.2) /100WBC Sodium 138 (135-145) mmol/L Potassium 3.3 (3.3-5.1) mmol/L Chloride 101 (96-108) mmol/L Carbon Dioxide 20 L (22-29) mmol/L Anion Gap 20 (12-20) BUN 27 H D (9-16) mg/dL Creatinine 1.29 (0.5-1.4) mg/dL Estim Creat Clear Calc 76.9 Estimated GFR 57 Random Glucose 159 H (60-115) mg/dL Calcium 10.2 (8.4-10.2) mg/dL Troponin I High Sens 4.0 (<3.5-35.0) ng/L Imaging Data Chest x-ray: Attestation: I personally reviewed and interpreted this imaging study as follows: Radiologist's impression: EXAMINATION: XR CHEST CLINICAL INFORMATION: Pain COMPARISON: 12/03/2021 TECHNIQUE: Frontal view of the chest was obtained. FINDINGS: Lungs are well expanded and clear. Cardiac silhouette is normal in size. Left atrial appendage clip in place. Sternotomy wires and sternal plates are noted. The pulmonary vascular pattern is normal. No pneumothorax or other significant change. XR/XR chest 1V IMPRESSION: No acute pulmonary disease compared to 12/03/2021. ? CT scan - chest: Attestation: I personally reviewed and interpreted this imaging study as follows: Radiologist's impression: FINDINGS: LUNGS: No parenchymal consolidation or pneumonitis. No significant bronchial wall thickening or bronchiectasis. No parenchymal fibrotic changes. No suspicious pulmonary nodules.? MEDIASTINUM: Mild cardiomegaly. No pericardial effusion. Great vessels normal caliber. No mediastinal or hilar lymphadenopathy. Imaged thyroid gland unremarkable.? CORONARY ARTERY CALCIFICATION: Triple vessel coronary calcifications. PLEURA: There is no pleural effusion. No pleural mass or thickening.? AXILLA: No lymphadenopathy.? UPPER ABDOMEN: Hepatic steatosis.? OSSEOUS STRUCTURES: No acute or suspicious osseous abnormalities.? CT/CT chest wo IV con IMPRESSION: *? No acute findings. *? Mild cardiomegaly and triple vessel coronary calcifications. *? Hepatic steatosis. ? Discharge Plan Discharge Clinical Impression: Atypical chest pain, Contusion of rib Patient Disposition: Home, Self-Care Instructions: Chest Wall Pain (ED), Rib Contusion (ED) Additional Instructions: Le evaluaron por dolor en la pared tor?cica derecha. Clementina lesiones concuerdan con la contusi?n en las costillas que le diagnosticaron la semana pasada en la hussain de urgencias. Las enzimas cardiacas son negativas. El electrocardiograma es ritmo sinusal normal. La radiograf?a de t?rax es normal. [place] los medicamentos que le recetaron anteriormente. [place] Tylenol 650 cada 6 horas seg?n sea necesario y Motrin 600 mg cada 6 horas seg?n sea necesario para controlar el dolor. Anote a qu? hora isidro clementina medicamentos para evitar emigdio sobredosis accidental. Seguimiento con el proveedor de atenci?n primaria seg?n sea necesario. Regrese al departamento de emergencias por cualquier s?ntoma nuevo, preocupante o que empeore. You were evaluated for right chest wall pain. Your injuries are consistent with the rib contusion that you were diagnosed with last week at urgent care. Cardiac enzymes are negative. Chest x-ray is normal. Please take the medications that were prescribed to you previously. Alternate Tylenol 650 every 6 hours as needed and Motrin 600 mg every 6 hours as needed pain management. Write down what time he takes his medications to prevent accidental overdose. Follow-up with primary care provider as needed. Return to the emergency department for any new, concerning, worsening symptoms. Prescriptions: No Action aspirin [Adult Aspirin Regimen] 81 mg tablet,delayed release (DR/EC) 81 mg PO DAILY Qty: 120 3RF Hold Instructions: Resume on 05/30/20. removal small polyp Eliquis 5 mg tablet 5 mg PO BID 90 Days Qty: 180 3RF cyclobenzaprine 10 mg Tablet 10 mg PO TID PRN (Reason: Pain) atorvastatin 80 mg tablet 1 tab PO BEDTIME albuterol sulfate 2.5 mg /3 mL (0.083 %) Solution For Nebulization 2.5 mg INHALATION TID omeprazole 40 mg Capsule,Delayed Release(Dr/Ec) 40 mg PO DAILY hydrocortisone [Proctozone-HC] 2.5 % cream with perineal applicator MT nitroglycerin 0.4 mg Tablet, Sublingual 0.4 mg SUBLINGUAL Q5M PRN (Reason: Chest Pain) Rx Instructions: do not exceed 3 doses per episode albuterol sulfate 90 mcg/actuation Hfa Aerosol Inhaler 2 puff INHALATION Q4-6H PRN (Reason: Shortness Of Breath Or Wheezing) fluticasone propionate [Flovent HFA] 110 mcg/actuation Hfa Aerosol Inhaler 2 puff INHALATION BID omega-3 fatty acids-fish oil [Fish Oil] 360-1,200 mg Capsule 2 cap PO BID Trulicity 1.5 mg/0.5 mL Pen Injector 1.5 mg SUBCUT QWEEK sennosides [Natural Senna Laxative] 8.6 mg tablet 17.2 mg PO BEDTIME PRN (Reason: Constipation) Rx Instructions: irina emigdio tableta cada noche famotidine 20 mg tablet 20 mg PO BID oxycodone-acetaminophen [Percocet] 5-325 mg tablet 1 tab PO Q4-6H PRN (Reason: pain) Qty: 30 0RF Rx Instructions: Partial Fill upon patient request. glipizide 10 mg tablet 10 mg PO DAILY metoprolol succinate 50 mg tablet extended release 24 hr 75 mg PO BID niacin 500 mg tablet extended release 24 hr 500 mg PO BEDTIME tramadol 50 mg tablet 50 mg PO DAILY PRN (Reason: Pain) amlodipine 10 mg tablet 10 mg PO DAILY chlorthalidone 50 mg tablet 50 mg PO DAILY fenofibrate 160 mg tablet 160 mg PO DAILY metformin 500 mg tablet 500 mg PO BID allopurinol 100 mg tablet 200 mg PO BID cholecalciferol (vitamin D3) 50 mcg (2,000 unit) capsule 50 mcg PO QAM Flovent HFA 110 mcg/actuation HFA aerosol inhaler 1 puff inhalation BID loratadine 10 mg tablet 10 mg PO DAILY docusate sodium 100 mg capsule 100 mg PO BEDTIME Qty: 90 3RF Rx Instructions: irina emigdio capsula cada noche acetaminophen [Mapap (acetaminophen)] 500 mg capsule 500 mg PO Q8H PRN (Reason: Pain) Coricidin HBP Max [id number] 10-325-200 mg capsule 2 cap PO Q4H Rx Instructions: do not exceed 10 capsules in 24 hours losartan 50 mg tablet 50 mg PO QAM ciprofloxacin HCl 500 mg tablet 500 mg PO Q12H Referrals: Physician,Unknown J [Primary Care Provider] - (Follow-up with primary care provider) Interventions: ED Discharge Assessment Last Done: 12/08/21 00:22 Discharge Date/Time: 12/08/21 00:23
[2021-12-07 20:06] LABS: Basophils Absolute Auto 0.1 X10*3/uL (0.0-0.2); Basophils Percent Auto 1.1 % (0-2); Eosinophils Absolute Auto 0.3 X10*3/uL (0.0-0.4); Eosinophils Percent Auto 2.8 % (0-4); Hematocrit 42.6 % (42.0-52.0); Hemoglobin 14.5 g/dl (14.0-18.0); Imm Gran Abs Auto 0.02 X10*3/uL (0.00-0.03); Imm Gran Pct Auto 0.2 % (0.0-0.4); Lymphocytes Absolute Auto 4.5 X10*3/uL (1.2-4.9); Mean Corpuscular Volume 82.4 fL (80.0-98.0); Mean Platelet Volume 9.7 fL (9.4-12.4); Monocytes Absolute Auto 0.7 X10*3/uL (0.1-1.2); Monocytes Percent Auto 6.6 % (2-11); Neutrophils Absolute Auto 4.4 x10*3/uL (2.0-8.3); Neutrophils Percent Auto 44.3 % (45-73); Platelet Count 404 X10*3/uL (160-400); Red Blood Count 5.17 X10*6/uL (4.60-5.80); Red Cell Distribution Width 13.8 % (11.0-16.0)
[2021-12-07 20:07] LABS: Anion Gap 20 (12-20); Blood Urea Nitrogen 27 mg/dL (9-16); Calcium 10.2 mg/dL (8.4-10.2); Carbon Dioxide 20 mmol/L (22-29); Chloride 101 mmol/L (96-108); Creatinine Clr Calc Pharmacy 76.9; Estimated Glomerular Filt Rate 57; Glucose Random 159 mg/dL (60-115); Potassium 3.3 mmol/L (3.3-5.1); Sodium 138 mmol/L (135-145)
[2021-12-07 20:52] VITALS: BP 121/71; PULSE 89; RESP 25; O2SAT 95
--- NOTE | 2021-12-07 21:33 | PC.NURSE ---
patient a&ox3, c/o 12/17 rt flank pain, will notify provider, will continue to monitor
[2021-12-07] MEDS: 0.9 % Sodium Chloride 1,000 ML 999 ML IVCONT (21:43)
[2021-12-07 21:46] VITALS: RESP 16
[2021-12-07] MEDS: Morphine Sulfate 2 MG/ML CARTRIDGE IVPUSH (21:46)
--- NOTE | 2021-12-07 21:49 | PC.NURSE ---
Pt has the meds as order Pt appears restlessness, telemetry shows NSR. will continue to monitor.
[2021-12-07] MEDS: oxyCODONE HCl Immed Release 5 MG TABLET PO (21:57)
--- NOTE | 2021-12-07 22:33 | PC.NURSE ---
pt to radiology
[2021-12-08 00:16] VITALS: BP 122/75; PULSE 87; RESP 14; O2SAT 95
== END 2021-12-08 00:23 | disposition home or self-care (01) ==
PROVIDERS: Emergency Provider Emergency Medicine
DX: S20.213A Contusion of bilateral front wall of thorax, initial encounter (principal); R07.89 Other chest pain; E11.9 Type 2 diabetes mellitus without complications; E78.5 Hyperlipidemia, unspecified; M54.6 Pain in thoracic spine; W18.2XXA Fall in (into) shower or empty bathtub, initial encounter; Y93.E1 Activity, personal bathing and showering; Y92.002 Bathroom of unspecified non-institutional (private) residence as the place of occurrence of the external cause; Y99.9 Unspecified external cause status; Z79.899 Other long term (current) drug therapy; Z79.82 Long term (current) use of aspirin
CPT/HCPCS: 36415; 71045; 71250; 80048; 84484; 85025; 93005; 96361; 96374; 99284; 99285; J2270

== ENCOUNTER → 2021-12-19 13:10 | Outpatient (BNVA) | payer MEDICAID, SELFPAY | PROVIDERS: PCP Internal Medicine; Referring Provider Internal Medicine; Visit Provider Internal Medicine Cardiovascular Disease | DX: I25.119 Atherosclerotic heart disease of native coronary artery with unspecified angina pectoris (principal); I10 Essential (primary) hypertension; I48.92 Unspecified atrial flutter; Z98.890 Other specified postprocedural states | CPT/HCPCS: 99212 ==

== ENCOUNTER → 2022-04-08 10:48 | Outpatient (BNVA) | payer MEDICAID, SELFPAY | PROVIDERS: PCP Internal Medicine; Visit Provider Surgery | DX: K60.3 Anal fistula (principal) | CPT/HCPCS: 99212 ==

== ENCOUNTER 2022-04-30 09:21 | Emergency (ER) | payer MEDICAID, SELFPAY ==
--- NOTE | ~2022-04-30 | CT_ITS ---
EXAMINATION: CT ABDOMEN AND PELVIS WITHOUT CONTRAST CLINICAL INFORMATION: Lower abdominal pain COMPARISON: 10/24/2020 TECHNIQUE: Multidetector volumetric imaging was performed from the superior aspect of the liver through the pubic symphysis. Sagittal and coronal reformatted images were obtained on the technologist's workstation. This CT examination was performed using dose optimization techniques as appropriate, variously including the following: *Automated exposure control *Adjustment of mA and/or kV according to patient size (this includes techniques or standardized protocols for targeted exams where dose is matched to indication/reason for exam; i.e. extremities or head) *Use of iterative reconstruction technique DLP: 818 mGy-cm FINDINGS: IMAGED THORAX: Mild cardiomegaly. Lungs are clear. LIVER, GALLBLADDER, AND BILIARY TREE: Liver remains enlarged measuring up to 25 cm craniocaudally. Diffuse hepatic steatosis. Previously, there was a 1.4 cm observation in the right hepatic lobe, which is not evident on on the current exam. This is most likely due to the fact that the degree of hepatic steatosis on the current exam is less the previous examination with attenuation of 33 HU, previously 17 HU. No intra or extrahepatic biliary dilatation. Gallbladder unremarkable. PANCREAS: Unremarkable. SPLEEN: Unremarkable. ADRENAL GLANDS: Unremarkable. KIDNEYS AND URETERS: The kidneys are normal in size, shape, and attenuation. Stable simple cyst in the right kidney. No follow-up required. No hydronephrosis, hydroureter, or calculi seen. No perinephric stranding. BLADDER: Unremarkable. GASTROINTESTINAL TRACT: No bowel related abnormalities. ABDOMINAL WALL: No significant hernia is appreciated. LYMPH NODES: Normal. VASCULAR: Aorta is atherosclerotic but normal caliber. PELVIC VISCERA: Unremarkable. OSSEOUS STRUCTURES: No acute or suspicious osseous abnormalities. CT/CT abdomen pelvis wo IV con IMPRESSION: * No acute findings within the abdomen or pelvis to explain the patient's symptomatology. * Hepatomegaly and diffuse hepatic steatosis. * Mild cardiomegaly
[2022-04-30 09:27] VITALS: BP 129/56; PULSE 79; RESP 18; TEMP 36.6; O2SAT 100; BMI 37.3
[2022-04-30 09:48] LABS: MANUAL DIFF FLAG NO
[2022-04-30 09:49] LABS: Basophils Absolute Auto 0.1 X10*3/uL (0.0-0.2); Basophils Percent Auto 1.4 % (0-2); Eosinophils Absolute Auto 0.4 X10*3/uL (0.0-0.4); Eosinophils Percent Auto 3.9 % (0-4); Hemoglobin 15.4 g/dl (14.0-18.0); Imm Gran Abs Auto 0.04 X10*3/uL (0.00-0.03); Imm Gran Pct Auto 0.4 % (0.0-0.4); Lymphocytes Absolute Auto 3.4 X10*3/uL (1.2-4.9); Lymphocytes Percent Auto 33.7 % (20-40); Mean Corpuscular HGB Conc 32.8 g/dl (31.0-36.0); Mean Corpuscular Hemoglobin 27.7 pg (27.0-33.0); Mean Corpuscular Volume 84.7 fL (80.0-98.0); Mean Platelet Volume 9.7 fL (9.4-12.4); Monocytes Absolute Auto 0.6 X10*3/uL (0.1-1.2); Monocytes Percent Auto 6.3 % (2-11); Neutrophils Absolute Auto 5.4 x10*3/uL (2.0-8.3); Neutrophils Percent Auto 54.3 % (45-73); Platelet Count 372 X10*3/uL (160-400); Red Blood Count 5.55 X10*6/uL (4.60-5.80); Red Cell Distribution Width 13.2 % (11.0-16.0)
[2022-04-30 10:04] LABS: Alanine Aminotransferase 35 U/L (0-40); Albumin Level 4.6 g/dL (3.5-5.0); Alkaline Phosphatase 105 U/L (39-117); Anion Gap 12 (12-20); Aspartate Amino Transferase 22 U/L (5-37); Bilirubin Direct < 0.2 mg/dL (0.0-0.5); Bilirubin Total 0.6 mg/dL (0.0-1.0); Blood Urea Nitrogen 21 mg/dL (9-16); Calcium 10.2 mg/dL (8.4-10.2); Carbon Dioxide 28 mmol/L (22-29); Chloride 100 mmol/L (96-108); Creatinine Clr Calc Pharmacy 92.2; Estimated Glomerular Filt Rate > 60; Glucose Random 175 mg/dL (60-115); Lipase 43 U/L (8-78); Potassium 4.1 mmol/L (3.3-5.1); Sodium 136 mmol/L (135-145); Total Protein 8.1 g/dL (6.5-8.0)
[2022-04-30 12:00] VITALS: BP 133/80; PULSE 81; RESP 18; TEMP 36.7; O2SAT 95
--- NOTE | 2022-04-30 13:06 | ED.GENADULT ---
HPI - General Adult General Chief complaint: Recheck/Abnormal Lab/Rx Stated complaint: L flank pain Time Seen by Provider: 04/30/22 13:00 Source: patient Mode of arrival: ambulatory Limitations: no limitations History of Present Illness HPI narrative: patient with left lower abdominal pain. The pain started 3 days ago. On Friday he felt gush of blood from the rectum. No fever or shaking chills. [address] Shah did a rectal fistula surgery. Today he went to [facility] and they sent him to the ED Onset (ago): day(s) Location: abdomen Related Data Home Medications Medication Instructions Recorded Confirmed allopurinol 100 mg tablet 200 mg PO BID 02/17/20 12/19/21 amlodipine 10 mg tablet 10 mg PO DAILY 02/17/20 12/19/21 chlorthalidone 50 mg tablet 50 mg PO DAILY 02/17/20 12/19/21 fenofibrate 160 mg tablet 160 mg PO DAILY 02/17/20 12/19/21 metformin 500 mg tablet 500 mg PO BID 02/17/20 12/19/21 tramadol 50 mg tablet 50 mg PO DAILY PRN Pain 02/17/20 12/19/21 glipizide 10 mg tablet 10 mg PO DAILY 10/25/20 12/19/21 niacin 500 mg tablet,extended 500 mg PO BEDTIME cholesterol 10/25/20 12/19/21 release 24 hr cholecalciferol (vitamin D3) 50 50 mcg PO QAM 01/29/21 12/19/21 mcg (2,000 unit) capsule loratadine 10 mg tablet 10 mg PO DAILY 01/29/21 12/19/21 DM 10 mg-acetaminophen 325 mg-GG 2 cap PO Q4H 08/15/21 12/19/21 200 mg capsule (Coricidin HBP Max Dyju-Oms-Flo) acetaminophen 500 mg capsule 500 mg PO Q8H PRN Pain 08/15/21 12/19/21 (Mapap (acetaminophen)) ciprofloxacin HCl 500 mg tablet 500 mg PO Q12H 08/15/21 12/19/21 losartan 50 mg tablet 50 mg PO QAM 08/15/21 12/19/21 albuterol sulfate 2.5 mg/3 mL 2.5 mg inhalation TID 08/27/21 12/19/21 (0.083 %) solution for nebulization albuterol sulfate 90 mcg/actuation 2 puff inhalation Q4-6H PRN 08/27/21 12/19/21 aerosol inhaler Shortness Of Breath Or Wheezing atorvastatin 80 mg tablet 1 tab PO BEDTIME 08/27/21 12/19/21 cyclobenzaprine 10 mg tablet 10 mg PO TID PRN Pain 08/27/21 12/19/21 fluticasone propionate 110 2 puff inhalation BID 08/27/21 12/19/21 mcg/actuation HFA aerosol inhaler (Flovent HFA) hydrocortisone 2.5 % topical cream PA 08/27/21 12/19/21 with perineal applicator (Proctozone-HC) nitroglycerin 0.4 mg sublingual 0.4 mg sublingual Q5M PRN Chest 08/27/21 12/19/21 tablet Pain omega-3 fatty acids-fish oil 360 2 cap PO BID 08/27/21 12/19/21 mg-1,200 mg capsule (Fish Oil) dulaglutide 3 mg/0.5 mL mg subcut QWEEK 12/19/21 12/19/21 subcutaneous [facility] fluticasone propionate 50 2 spray intranasal DAILY PRN 12/19/21 12/19/21 mcg/actuation nasal spray,suspension lidocaine 5 % topical patch 1 - 2 patch topical DAILY PRN pain 12/19/21 12/19/21 (Lidoderm) metoprolol tartrate 50 mg tablet 75 mg PO 12/19/21 12/19/21 Previous Rx's Medication Instructions Recorded aspirin 81 mg tablet,delayed 81 mg PO DAILY #120 tabs 04/17/20 release (Adult Aspirin Regimen) oxycodone-acetaminophen 5 mg-325 1 tab PO Q4-6H PRN pain #30 tabs 10/19/21 mg tablet (Percocet) apixaban 5 mg tablet (Eliquis) 5 mg PO BID 90 days #180 tabs 11/14/21 omeprazole 40 mg capsule,delayed 40 mg PO DAILY #30 caps 01/15/22 release famotidine 20 mg tablet 20 mg PO BID #60 tabs 01/16/22 docusate sodium 100 mg capsule 100 mg PO BEDTIME #90 caps 03/19/22 sennosides 8.6 mg tablet (Natural 17.2 mg PO BEDTIME PRN 03/19/22 Senna Laxative) Constipation #180 tabs Allergies Allergy/AdvReac Type Severity Reaction Status Date / Time Iodinated Contrast Media Allergy Intermediate Difficulty Verified 04/08/22 11:19 [IV CONTRAST] Breathing Penicillins Allergy Mild RASH Verified 04/08/22 11:19 Sulfa (Sulfonamide Allergy Mild RASH Verified 04/08/22 11:19 Antibiotics) codeine AdvReac Mild STOMACH Verified 04/08/22 11:19 UPSET Docusate Calcium Allergy Mild rash Uncoded 04/08/22 11:19 PMF Past Medical History Medical History Adhesive capsulitis of left shoulder Anal fistula Arthritis Asthma Atrial flutter CAD (coronary artery disease) Cellulitis Depression Diabetes GERD (gastroesophageal reflux disease) Gout History of panic attacks Hx of myocardial infarction Hypertension Low back pain Migraines Perianal abscess Scoliosis Seizures Tubular adenoma Surgical History H/O colonoscopy History of angioplasty History of appendectomy History of esophagogastroduodenoscopy (EGD) History of incision and drainage (~10/19/21) History of open heart surgery History of sinus surgery History of umbilical hernia repair Family History Family History Father No problems noted. Mother History of stomach cancer History of liver cancer Brother No problems noted. 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) Do you presently have visiting nurse or other home services: No Alcohol intake: never Patient Tobacco Use Status: Never used Tobacco Advance Directives: No Advance Directives Information Provided: Yes Current occupational status: disabled Physical Exam ED Vital Signs: Vital Signs - 24 hr 04/30/22 09:27 04/30/22 12:00 04/30/22 13:59 Temperature 97.8 F 98.0 F 98.0 F Pulse Rate 79 81 77 Respiratory Rate 18 18 18 Blood Pressure 129/56 L 133/80 120/74 Pulse Oximetry 100 95 96 Oxygen Delivery Method Room Air Room Air Room Air BMI result Body Mass Index 37.3 Const General: healthy appearing Nutritional Appearance: obese Orientation/consciousness: oriented to person and patient oriented x3 Limitations: no limitations HENMT Head: Yes normal to inspection Ears: external ears normal General nose exam: Normal external nose present Mouth: Normal oral and palatal mucosa present and oropharynx normal Throat: Yes posterior oropharynx normal Eyes General: appearance normal, both eyes and all related structures Neck Neck: Yes normal visual inspection Chest Chest palpation & inspection: normal inspection of the chest Resp Auscultation: clear to auscultation bilaterally Cardio Jugular venous distension: no JVD Rate: regular rate Rhythm: regular rhythm Heart sounds: S1 normal heart sound present and S2 normal heart sound present GI Other: obese, soft, mild left lower abdominal pain to palpation Auscultation: normal bowel sounds Other: rectal exam showed a Seton drain in place, no bleeding, no erythema, no pus Skin General skin exam: no rashes or lesions noted Neuro General: oriented to person and patient oriented x3 Cranial nerves: Yes CN's II-XII intact bilaterally Motor exam (neuro): 5/5 motor strength present throughout Extrem General: Yes normal to inspection Psych Appearance: grossly normal Course Reevaluation(s) Reevaluation #1: no evidence of infection will dc home Time: 15:11 Medical Decision Making Differential Diagnosis Differential Diagnoses: The differential diagnosis associated with the presentation includes (diverticulitis, perirectal abscess, renal colic) Admission/Observation Consideration of admission/observation: Escalation of care including admission/observation considered (patient with prior rectal fistula with pus drainage, admission was considered) Lab Data MDM Lab Attestation statement: I reviewed the patient's lab results. 04/30/22 09:43 04/30/22 09:43 Labs: Lab Results 04/30/22 04/30/22 Range/Units 09:43 09:43 WBC 10.0 (4.8-10.8) X10*3/uL RBC 5.55 (4.60-5.80) X10*6/uL Hgb 15.4 (14.0-18.0) g/dl Hct 47.0 (42.0-52.0) % MCV 84.7 (80.0-98.0) fL MCH 27.7 (27.0-33.0) pg MCHC 32.8 (31.0-36.0) g/dl RDW 13.2 (11.0-16.0) % Plt Count 372 (160-400) X10*3/uL MPV 9.7 (9.4-12.4) fL Immature Gran % (Auto) 0.4 (0.0-0.4) % Neut % (Auto) 54.3 (45-73) % Lymph % (Auto) 33.7 (20-40) % Dickenson % (Auto) 6.3 (2-11) % Eos % (Auto) 3.9 (0-4) % Baso % (Auto) 1.4 (0-2) % Lymph # (Auto) 3.4 (1.2-4.9) X10*3/uL Dickenson # (Auto) 0.6 (0.1-1.2) X10*3/uL Eos # (Auto) 0.4 (0.0-0.4) X10*3/uL Baso # (Auto) 0.1 (0.0-0.2) X10*3/uL Abs Immat Gran (auto) 0.04 H (0.00-0.03) X10*3/uL Absolute Neuts (auto) 5.4 (2.0-8.3) x10*3/uL Absolute Nucleated RBC 0.000 (0.0-0.012) X10*3/uL Nucleated RBC % (auto) 0.0 (0.0-0.2) /100WBC Sodium 136 (135-145) mmol/L Potassium 4.1 D (3.3-5.1) mmol/L Chloride 100 (96-108) mmol/L Carbon Dioxide 28 (22-29) mmol/L Anion Gap 12 (12-20) BUN 21 H (9-16) mg/dL Creatinine 1.09 (0.5-1.4) mg/dL Estim Creat Clear Calc 92.2 Estimated GFR > 60 Random Glucose 175 H (60-115) mg/dL Calcium 10.2 (8.4-10.2) mg/dL Total Bilirubin 0.6 (0.0-1.0) mg/dL Direct Bilirubin < 0.2 (0.0-0.5) mg/dL AST 22 (5-37) U/L ALT 35 (0-40) U/L Alkaline Phosphatase 105 (39-117) U/L Total Protein 8.1 H (6.5-8.0) g/dL Albumin 4.6 (3.5-5.0) g/dL Lipase 43 (8-78) U/L Radiology Impression Discussion of test interpretation with radiology: I have reviewed the radiologist's reading. (no evidence of diverticulitis) Discharge Plan Discharge Clinical Impression: Abdominal pain Patient Disposition: Home, Self-Care Instructions: Abdominal Pain (ED) Prescriptions: No Action aspirin [Adult Aspirin Regimen] 81 mg tablet,delayed release (DR/EC) 81 mg PO DAILY Qty: 120 3RF Hold Instructions: Resume on 05/30/20. removal small polyp Eliquis 5 mg tablet 5 mg PO BID 90 Days Qty: 180 3RF omeprazole 40 mg capsule,delayed release(DR/EC) 40 mg PO DAILY Qty: 30 3RF famotidine 20 mg tablet 20 mg PO BID Qty: 60 3RF docusate sodium 100 mg capsule 100 mg PO BEDTIME Qty: 90 3RF Rx Instructions: irina emigdio capsula cada noche sennosides [Natural Senna Laxative] 8.6 mg tablet 17.2 mg PO BEDTIME PRN (Reason: Constipation) Qty: 180 2RF Rx Instructions: irina emigdio tableta cada noche cyclobenzaprine 10 mg Tablet 10 mg PO TID PRN (Reason: Pain) atorvastatin 80 mg tablet 1 tab PO BEDTIME albuterol sulfate 2.5 mg /3 mL (0.083 %) Solution For Nebulization 2.5 mg INHALATION TID hydrocortisone [Proctozone-HC] 2.5 % cream with perineal applicator PA nitroglycerin 0.4 mg Tablet, Sublingual 0.4 mg SUBLINGUAL Q5M PRN (Reason: Chest Pain) Rx Instructions: do not exceed 3 doses per episode albuterol sulfate 90 mcg/actuation Hfa Aerosol Inhaler 2 puff INHALATION Q4-6H PRN (Reason: Shortness Of Breath Or Wheezing) fluticasone propionate [Flovent HFA] 110 mcg/actuation Hfa Aerosol Inhaler 2 puff INHALATION BID omega-3 fatty acids-fish oil [Fish Oil] 360-1,200 mg Capsule 2 cap PO BID oxycodone-acetaminophen [Percocet] 5-325 mg tablet 1 tab PO Q4-6H PRN (Reason: pain) Qty: 30 0RF Rx Instructions: Partial Fill upon patient request. glipizide 10 mg tablet 10 mg PO DAILY niacin 500 mg tablet extended release 24 hr 500 mg PO BEDTIME tramadol 50 mg tablet 50 mg PO DAILY PRN (Reason: Pain) amlodipine 10 mg tablet 10 mg PO DAILY chlorthalidone 50 mg tablet 50 mg PO DAILY fenofibrate 160 mg tablet 160 mg PO DAILY metformin 500 mg tablet 500 mg PO BID allopurinol 100 mg tablet 200 mg PO BID cholecalciferol (vitamin D3) 50 mcg (2,000 unit) capsule 50 mcg PO QAM loratadine 10 mg tablet 10 mg PO DAILY acetaminophen [Mapap (acetaminophen)] 500 mg capsule 500 mg PO Q8H PRN (Reason: Pain) Coricidin HBP Max Nxgb-Fxy-Msm 10-325-200 mg capsule 2 cap PO Q4H Rx Instructions: do not exceed 10 capsules in 24 hours losartan 50 mg tablet 50 mg PO QAM ciprofloxacin HCl 500 mg tablet 500 mg PO Q12H Trulicity 3 mg/0.5 mL pen injector subcut QWEEK lidocaine [Lidoderm] 5 % adhesive patch,medicated 1 - 2 patch topical DAILY PRN (Reason: pain) fluticasone propionate 50 mcg/actuation spray,suspension 2 spray intranasal DAILY PRN metoprolol tartrate 50 mg tablet 75 mg PO Referrals: Hanna Wheat MD [Primary Care Provider] - 1 week
[2022-04-30 13:59] VITALS: BP 120/74; PULSE 77; RESP 18; TEMP 36.7; O2SAT 96
== END 2022-04-30 15:21 | disposition home or self-care (01) ==
PROVIDERS: Emergency Provider Emergency Medicine; PCP Internal Medicine
DX: R10.32 Left lower quadrant pain (principal); E11.9 Type 2 diabetes mellitus without complications; I10 Essential (primary) hypertension; I48.92 Unspecified atrial flutter; Z86.73 Personal history of transient ischemic attack (TIA), and cerebral infarction without residual deficits; Z79.01 Long term (current) use of anticoagulants; Z79.84 Long term (current) use of oral hypoglycemic drugs; Z79.02 Long term (current) use of antithrombotics/antiplatelets; Z79.899 Other long term (current) drug therapy; Z79.85 Long-term (current) use of injectable non-insulin antidiabetic drugs; Z79.82 Long term (current) use of aspirin
CPT/HCPCS: 36415; 74176; 80053; 82248; 83690; 85025; 99284

== ENCOUNTER → 2022-05-06 10:09 | Outpatient (BNVA) | payer MEDICAID, SELFPAY | PROVIDERS: PCP Internal Medicine; Visit Provider Surgery | DX: Z48.815 Encounter for surgical aftercare following surgery on the digestive system (principal); Z46.59 Encounter for fitting and adjustment of other gastrointestinal appliance and device; Z98.890 Other specified postprocedural states | CPT/HCPCS: 99212 ==

== ENCOUNTER → 2022-05-08 10:56 | Outpatient (BNVA) | payer MEDICAID, SELFPAY | PROVIDERS: PCP Internal Medicine; Referring Provider Internal Medicine; Visit Provider Nurse Practitioner Family | DX: K21.9 Gastro-esophageal reflux disease without esophagitis (principal); K59.04 Chronic idiopathic constipation; R10.32 Left lower quadrant pain; R14.0 Abdominal distension (gaseous) | CPT/HCPCS: 99212 ==

== ENCOUNTER 2022-05-13 09:06 | Outpatient (REF) | payer MEDICAID, SELFPAY ==
[2022-05-13 10:41] LABS: Alanine Aminotransferase 32 U/L (0-40); Albumin Level 4.4 g/dL (3.5-5.0); Alkaline Phosphatase 127 U/L (39-117); Aspartate Amino Transferase 30 U/L (5-37); Bilirubin Direct 0.2 mg/dL (0.0-0.5); Lipase 37 U/L (8-78); Total Protein 8.2 g/dL (6.5-8.0)
[2022-05-13 11:09] LABS: Vitamin B12 326 pg/mL (200-900)
[2022-05-18 14:24] LABS: Vitamin D 25-OH, D2 <4 ng/mL; Vitamin D 25-OH, D3 37 ng/mL; Vitamin D 25-OH, Total 37 ng/mL (30-100)
== END 2022-05-13 09:07 | disposition home or self-care (01) ==
LOC: HO.LAB 09:06
PROVIDERS: PCP Internal Medicine; Visit Provider Nurse Practitioner Family
DX: R19.7 Diarrhea, unspecified (principal); R10.9 Unspecified abdominal pain; E55.9 Vitamin D deficiency, unspecified
CPT/HCPCS: 36415; 80076; 82306; 82607; 82746; 83690

== ENCOUNTER 2022-05-14 20:55 | Inpatient (IN) | payer MEDICAID, SELFPAY ==
--- NOTE | 2022-05-14 | ECG_ITS ---
Test Reason : STROKE Blood Pressure : / mmHG Vent. Rate : 089 BPM Atrial Rate : 089 BPM P-R Int : 150 ms QRS Dur : 102 ms QT Int : 352 ms P-R-T Axes : 033 024 137 degrees QTc Int : 428 ms Normal sinus rhythm RSR' or QR pattern in V1 suggests right ventricular conduction delay ST & T wave abnormality, consider lateral ischemia Abnormal ECG No significant changes when compared with the previous EKG of 14 may 2022 Referred By: Delphine Kim Electronically Signed By:AMINTA SMITH
--- NOTE | ~2022-05-14 | XR_ITS ---
EXAMINATION: XR CHEST CLINICAL INFORMATION: Weakness with question of pneumonia COMPARISON: 12/07/2021 TECHNIQUE: Frontal view of the chest was obtained. FINDINGS: Mild cardiac enlargement. Mild pulmonary vascular congestion. No gross pulmonary edema. Median sternotomy sutures and fusion device is present. Left atrial clip in place. No pleural effusions or consolidations. XR/XR chest 1V IMPRESSION: Cardiomegaly with mild pulmonary vascular congestion.
--- NOTE | ~2022-05-14 | CT_ITS ---
EXAMINATION: CT ANGIOGRAM HEAD CT ANGIOGRAM NECK CLINICAL INFORMATION: Left-sided weakness. COMPARISON: CT head from 05/14/2022. Brain MRI from 09/27/2017. TECHNIQUE: Initial noncontrast motorman/woman imaging of the head and neck was performed. Comparison is made with noncontrast head CT from earlier today. Test bolus sequences followed by intravenous administration 70 mL of Omnipaque 350. Helical imaging was performed in the axial plane from the aortic arch to the skull vertex. Delayed postcontrast imaging of the head was also performed. The data was processed at the certified neurodiagnostic technologist's workstation for generation of MIP sequences. Angled MIPs and volume rendered reformatted images were also generated at an offline 3D workstation. Stenoses are assessed in accordance with NASCET criteria unless otherwise indicated. This CT examination was performed using dose optimization techniques as appropriate, variously including the following: *Automated exposure control. *Adjustment of mA and/or kV according to patient size (this includes techniques or standardized protocols for targeted exams where dose is matched to indication/reason for exam; i.e. extremities or head). *Use of iterative reconstruction technique. DLP: 1662 mGy-cm FINDINGS: CT Head: There is no evidence of acute intracranial hemorrhage or edematous territorial infarction. A few foci of hypoattenuation in the periventricular and deep white matter are consistent with mild microangiopathy. Britt-white matter differentiation is preserved. The ventricles are normal in size and configuration. No evidence for obstructive hydrocephalus. No abnormal mass effect or midline shift. No extra-axial fluid collections. No pathologic intra-axial enhancement. No acute soft tissue or osseous abnormalities. Mild mucosal thickening of the paranasal sinuses. The mastoid air cells and middle ear cavities are clear. CT Neck: There is a 1.2 cm hypoattenuating nodule in the left thyroid lobe (no follow-up imaging recommended based on current guidelines at the time of examination). The remaining cervical soft tissues are within normal limits. Straightening of the normal cervical lordosis. Moderate degenerative disc disease at C5-C6 and C6-C7. Mild degenerative disc disease at all additional cervical levels. Facet and uncovertebral joint arthropathy leads to osseous encroachment on the neural foramina from C4-C7. CT Upper Chest: Status post median sternotomy for CABG. The visualized lung apices and upper mediastinum are within normal limits. Neck CTA: Aortic Arch: Normal contour and caliber with moderate calcific atherosclerotic disease. Classic 3 vessel branching pattern of the aortic arch. Great Vessel Origins: No significant stenosis of the branch origins. Right Common Carotid Artery: No focal stenosis or occlusion. Cervical Right Internal Carotid Artery: Mild calcific atherosclerotic disease of the carotid bulb and proximal internal carotid artery without flow-limiting stenosis. Left Common Carotid Artery: No focal stenosis or occlusion. Cervical Left Internal Carotid Artery: Mild calcific atherosclerotic disease of the carotid bulb and proximal internal carotid artery without flow-limiting stenosis. Cervical Right Vertebral Artery: Dominant. No focal stenosis or occlusion. Cervical Left Vertebral Artery: No focal stenosis or occlusion. Brain CTA: Intracranial Internal Carotid Arteries: Calcific atherosclerotic disease of the intracranial internal carotid arteries without occlusion or flow-limiting stenosis. Right Anterior Cerebral Artery: Normal A1 segment. Normal opacification of the distal KHANG segments. Left Anterior Cerebral Artery: Normal A1 segment. Normal opacification of the distal KHANG segments. Anterior Communicating Artery: Normal. Right Middle Cerebral Artery: Normal M1 segment of the MCA without focal stenosis or occlusion. Normal arborization of the distal segments. Left Middle Cerebral Artery: Normal M1 segment of the MCA without focal stenosis or occlusion. Normal arborization of the distal segments. Right Vertebral Artery: Normal V4 segment. Normal opacification of the proximal segments of the posterior inferior cerebellar artery. Left Vertebral Artery: Normal V4 segment. Normal opacification of the proximal segments of the posterior inferior cerebellar artery. Basilar Artery: Normal without focal stenosis or occlusion. Normal appearance of the proximal superior cerebellar arteries. Right Posterior Cerebral Artery: Normal P1 segment. Normal opacification of the distal MANAGER [employer] segments. Left Posterior Cerebral Artery: Normal P1 segment. Normal opacification of the distal [employer] segments. Normal opacification of the superior sagittal, straight, transverse, and sigmoid sinuses. CT/CT angio head neck stroke IMPRESSION: 1. No evidence of acute intracranial hemorrhage or edematous territorial infarction. Mild underlying microangiopathy. 2. CTA of the head and neck without proximal occlusion or flow-limiting stenosis.
--- NOTE | ~2022-05-14 | CT_ITS ---
EXAMINATION: CT HEAD WITHOUT CONTRAST (STROKE PROTOCOL) CLINICAL INFORMATION: Stroke protocol. Left-sided deficits. COMPARISON: None TECHNIQUE: Contiguous axial imaging was performed from the skull base to vertex without intravenous administration of contrast. This CT examination was performed using dose optimization techniques as appropriate, variously including the following: *Automated exposure control *Adjustment of mA and/or kV according to patient size (this includes techniques or standardized protocols for targeted exams where dose is matched to indication/reason for exam; i.e. extremities or head) *Use of iterative reconstruction technique DLP: 843 mGy-cm FINDINGS: There is no evidence of acute intracranial hemorrhage or territorial infarction. No abnormal mass-effect or midline shift is seen. Britt to white matter differentiation is well preserved. No extra-axial fluid collections are identified. The ventricles are normal in size. There is no abnormal attenuation within the brain parenchyma. There is no osseous abnormality. The mastoid air cells and visualized portions of the paranasal sinuses are well-aerated. CT/CT head for stroke IMPRESSION: No acute intracranial pathology. This critical result was discussed with Delphine Haynes at 2118 hours on 05/14/2022. It was ascertained that the content and urgency of the report was understood at the time of direct communication.
[2022-05-14 21:01] LABS: Glucose, Whole Blood 137 mg/dL (60-115)
--- NOTE | 2022-05-14 21:03 | ED_ITS ---
HPI - General Adult General Chief complaint: Stroke Stated complaint: STROKE ALERT Time Seen by Provider: 05/14/22 21:05 Source: patient and EMS Mode of arrival: EMS Limitations: no limitations History of Present Illness HPI narrative: This is a 57-year-old male history of TIA, coronary artery disease, atrial flutt er on apixaban, hypertension, stable angina presenting to the emergency department with complaints of left upper and lower extremity numbness weakness, difficulty speaking and difficulty with word finding times 30 minutes. Patient tells me this started suddenly this is never happened to him before. He tells me he feels like his entire left side is pin down and he can not move it. Patient tells me he is on blood thinners and taking them as prescribed. Denies head trauma. Patient denies chest pain, shortness of breath, nausea, vomiting, abdominal pain, headache, vision changes, dizziness,. No recent trauma. On arrival NIH stroke scale of 10. Related Data Home Medications Medication Instructions Recorded Confirmed allopurinol 100 mg tablet 200 mg PO BID 02/17/20 05/06/22 amlodipine 10 mg tablet 10 mg PO DAILY 02/17/20 05/06/22 chlorthalidone 50 mg tablet 50 mg PO DAILY 02/17/20 05/06/22 fenofibrate 160 mg tablet 160 mg PO DAILY 02/17/20 05/06/22 metformin 500 mg tablet 500 mg PO BID 02/17/20 05/06/22 tramadol 50 mg tablet 50 mg PO DAILY PRN Pain 02/17/20 05/06/22 glipizide 10 mg tablet 10 mg PO DAILY 10/25/20 05/06/22 niacin 500 mg tablet,extended 500 mg PO BEDTIME cholesterol 10/25/20 05/06/22 release 24 hr cholecalciferol (vitamin D3) 50 50 mcg PO QAM 01/29/21 05/06/22 mcg (2,000 unit) capsule loratadine 10 mg tablet 10 mg PO DAILY 01/29/21 05/06/22 DM 10 mg-acetaminophen 325 mg-GG 2 cap PO Q4H 08/15/21 05/06/22 200 mg capsule (Coricidin HBP Max Eiht-Lmh-Uou) acetaminophen 500 mg capsule 500 mg PO Q8H PRN Pain 08/15/21 05/06/22 (Mapap (acetaminophen)) losartan 50 mg tablet 50 mg PO QAM 08/15/21 05/06/22 albuterol sulfate 2.5 mg/3 mL 2.5 mg inhalation TID 08/27/21 05/06/22 (0.083 %) solution for nebulization albuterol sulfate 90 mcg/actuation 2 puff inhalation Q4-6H PRN 08/27/21 05/06/22 aerosol inhaler Shortness Of Breath Or Wheezing atorvastatin 80 mg tablet 1 tab PO BEDTIME 08/27/21 05/06/22 cyclobenzaprine 10 mg tablet 10 mg PO TID PRN Pain 08/27/21 05/06/22 fluticasone propionate 110 2 puff inhalation BID 08/27/21 05/06/22 mcg/actuation HFA aerosol inhaler (Flovent HFA) hydrocortisone 2.5 % topical cream MT 08/27/21 05/06/22 with perineal applicator (Proctozone-HC) nitroglycerin 0.4 mg sublingual 0.4 mg sublingual Q5M PRN Chest 08/27/21 05/06/22 tablet Pain omega-3 fatty acids-fish oil 360 2 cap PO BID 08/27/21 05/06/22 mg-1,200 mg capsule (Fish Oil) dulaglutide 3 mg/0.5 mL mg subcut QWEEK 12/19/21 05/06/22 subcutaneous pen injector ([facility]) fluticasone propionate 50 2 spray intranasal DAILY PRN 12/19/21 05/06/22 mcg/actuation nasal spray,suspension lidocaine 5 % topical patch 1 - 2 patch topical DAILY PRN pain 12/19/21 05/06/22 (Lidoderm) metoprolol tartrate 50 mg tablet 75 mg PO 12/19/21 05/06/22 Previous Rx's Medication Instructions Recorded aspirin 81 mg tablet,delayed 81 mg PO DAILY #120 tabs 04/17/20 release (Adult Aspirin Regimen) oxycodone-acetaminophen 5 mg-325 1 tab PO Q4-6H PRN pain #30 tabs 10/19/21 mg tablet (Percocet) apixaban 5 mg tablet (Eliquis) 5 mg PO BID 90 days #180 tabs 11/14/21 famotidine 20 mg tablet 20 mg PO BID #60 tabs 01/16/22 docusate sodium 100 mg capsule 200 mg PO BEDTIME #180 caps 05/08/22 ljodvj-avymqvpl-lqrdset 1 cap PO QID #120 caps 05/08/22 24,000-76,000-120,000 unit capsule,delayed rel (Creon) wheat dextrin 3 gram/3.5 gram oral 1 packet PO DAILY #28 ea 05/08/22 powder packet (Benefiber Clear Sugar Free(dextrin)) omeprazole 40 mg capsule,delayed 40 mg PO DAILY #30 caps 05/09/22 release Allergies Allergy/AdvReac Type Severity Reaction Status Date / Time Iodinated Contrast Media Allergy Intermediate Difficulty Verified 05/08/22 11:14 [IV CONTRAST] Breathing Penicillins Allergy Mild RASH Verified 05/08/22 11:14 Sulfa (Sulfonamide Allergy Mild RASH Verified 05/08/22 11:14 Antibiotics) codeine AdvReac Mild STOMACH Verified 05/08/22 11:14 UPSET Docusate Calcium Allergy Mild rash Uncoded 05/08/22 11:14 Review of Systems Review of Systems: Constitutional : No Weight loss, No Fever, No Chills, No Fatigue, No Malaise ENT/Mouth : No sore throat, No Rhinorrhea Eyes: No Eye Pain, No Swelling, No Redness Cardiovascular : No Chest Pain, No SOB, No Dyspnea on Exertion, No Orthopnea, No Edema, No Palpitations Respiratory : No Cough, No Sputum, No Wheezing Gastrointestinal : No Nausea, No Vomiting, No Diarrhea, No Constipation, No abdominal Pain, No Hematochezia, No Melena Genitourinary : No Dysuria, No Urinary Frequency, No Hematuria, Musculoskeletal : No joint pain, No Myalgias, No Joint Swelling Skin : No Skin Lesions, No rash Neuro : + Weakness, No Numbness, No Dizziness, No Headache Psych : No Anxiety/Panic, No Depression All other systems reviewed and are negative Yes all other systems are reviewed and are negative [facility] Past Medical History Attestation statement: The following information was validated with the patient. Source: old records reviewed and nursing notes reviewed Medical History Adhesive capsulitis of left shoulder Anal fistula Arthritis Asthma Atrial flutter CAD (coronary artery disease) Cellulitis Depression Diabetes GERD (gastroesophageal reflux disease) Gout History of panic attacks Hx of myocardial infarction Hypertension Low back pain Migraines Perianal abscess Scoliosis Seizures Tubular adenoma Surgical History H/O colonoscopy History of angioplasty History of appendectomy History of esophagogastroduodenoscopy (EGD) History of incision and drainage (~10/19/21) History of open heart surgery History of sinus surgery History of umbilical hernia repair Family History Family History Father No problems noted. Mother History of stomach cancer History of liver cancer Brother No problems noted. Social History Social History Household Members: Children Are you a primary director of managed care to a significant other at home: Yes (children) Do you presently have visiting nurse or other home services: No Alcohol intake: never Patient Tobacco Use Status: Never used Tobacco Advance Directives: No Advance Directives Information Provided: Yes Current occupational status: disabled Physical Exam ED Vital Signs: Vital Signs - 24 hr 05/14/22 21:08 05/14/22 21:32 05/14/22 21:57 Temperature 97.5 F 98.2 F Pulse Rate 89 90 Respiratory Rate 16 16 Blood Pressure 115/68 119/68 Pulse Oximetry 95 97 Oxygen Delivery Method Room Air Room Air BMI result Body Mass Index 38.0 Vital signs stable Appearance: Alert.? Oriented X3.? No acute distress.? Patient with slurred speech. Head: Normocephalic, atraumatic, no step-offs or deformities. Left-sided facial droop noted w/ decreased sensation on L. side of face. Eyes: Pupils equal, round and reactive to light.? ENT: Pharynx normal.? Neck: Normal inspection.? Neck supple.? CVS: Normal heart rate and rhythm.? Pulses normal.? Respiratory: No respiratory distress.? Breath sounds normal.? Abdomen: Soft and nontender.? Skin: Skin warm and dry.? Normal skin color.? Normal skin turgor.? Extremities: No lower extremity edema.? No calf ttp. 5/5 strength to right upper and lower extremities. 2/5 strength to left upper and left lower extremities. Decreased sensation to left side of body Back: No midline tenderness, no C-spine tenderness, full range of motion, no CVA tenderness bilaterally Neuro: Oriented X 3. Normal sensation to bilateral upper and lower extremities. NIH stroke scale of 10. Course Reevaluation(s) Reevaluation #1: CBC appears to be within normal limits. Chemistry pending. Dry head CT with no acute findings. Pending CTA. Time: 21:19 Reevaluation #2: Chemistry with no acute findings requiring intervention. When I asked patient what his allergies were he told me he has an allergy to penicillin he tells me his throat closes. He did not tell me he had an IV contrast allergy until after he had his CTA with IV contrast, he also did not inform CT staff of this. For this reason will premedicate with Pepcid, Solu-Medrol and Benadryl. Patient is saturating well on room air, no signs of anaphylaxis at this time. Time: 21:43 Reevaluation #3: Troponin negative, EKG nonischemic, EKG showing normal sinus rhythm with a ventricular rate of 89, no ST elevations or inversions concerning for ischemia. CTA of head and neck with no evidence of acute intracranial hemorrhage or edematous territorial infarction. Mild underlying micro angiography. CT of the head and neck without proximal occlusion or flow-limiting stenosis. Ammonia & urine pending. Time: 22:41 Additional Reevaluation(s): UA without infection. Ammonia was not able to be drawn with initial labs due to lab error. Will repeat ammonia on at VBG to rule out potential metabolic encephalopathy 0124 VBG essentially unremarkable. Ammonia pending. I did evaluate this patient again with hospitalist, patient reports that Chris having substernal nonradiating chest pain described as a tightness. Initial troponin negative, EKG nonischemic I do not suspect ACS. Second troponin pending. Patient will be admitted to the hospitalist team for weakness, chest pain. Dr. Rogers accepting provider. To note, patient poor historian, patient tells me he does not have family in the area, he does not have any emergency contacts, history has changed multiple times while in the department. He knows thing that the main reason he was here was for substernal chest pain. Unlikely ACS, PE or CHF. Medications Administered Discontinued Medications Generic Name Dose Route Start Last Admin Trade Name Freq PRN Reason Stop Dose Admin Diphenhydramine HCl 50 mg 05/14/22 21:31 05/14/22 21:36 Diphenhydramine Hcl 50 Mg/Ml Vial IVPUSH 05/14/22 21:32 50 mg ONCE ONE Administration Famotidine 20 mg 05/14/22 21:31 05/14/22 21:36 Famotidine/Pf 20 Mg/2 Ml Vial IVPUSH 05/14/22 21:32 20 mg ONCE ONE Administration Methylprednisolone Sodium Succinate 125 mg 05/14/22 21:31 05/14/22 21:37 Methylprednisolone Sod Succ 125 Mg/2 Ml Vial IVPUSH 05/14/22 21:32 125 mg ONCE ONE Administration Medical Decision Making Medical Decision Making [facility] Narrative: 2103 This is a 57-year-old male presenting to the emergency department with left upper and lower extremity weakness/numbness, slurred speech symptoms started about 30 minutes ago. Patient anticoagulated on apixaban. Med compliant. Denies trauma. No history of this in the past. Physical examination significant for weakness to left upper and left lower extremities with associated decreased sensation. Slurred speech with left-sided face decreased sensation. NIH stroke scale of 10. Concerns for possible stroke, large vessel occlusion. Unlikely intracranial hemorrhage. Will rule out electrolyte abnormalities. Plan at this time is stroke protocol. CT and CTA ordered. Basic labs ordered. Differential Diagnosis Differential Diagnoses: The differential diagnosis associated with the presentation includes Concerns for possible stroke, large vessel occlusion. Unlikely intracranial hemorrhage. Will rule out electrolyte abnormalities. Admission/Observation Consideration of admission/observation: Escalation of care including admission/observation considered Likely will require hospital admission Lab Data [facility] Lab Attestation statement: I reviewed the patient's lab results. 05/14/22 21:00 05/14/22 21:00 Labs: Lab Results 05/14/22 05/14/22 05/14/22 Range/Units 20:57 21:00 21:00 WBC 10.7 (4.8-10.8) X10*3/uL RBC 5.05 (4.60-5.80) X10*6/uL Hgb 13.9 L (14.0-18.0) g/dl Hct 42.4 (42.0-52.0) % MCV 84.0 (80.0-98.0) fL MCH 27.5 (27.0-33.0) pg MCHC 32.8 (31.0-36.0) g/dl RDW 13.2 (11.0-16.0) % Plt Count 367 (160-400) X10*3/uL MPV 9.9 (9.4-12.4) fL Immature Gran % (Auto) 0.2 (0.0-0.4) % Neut % (Auto) 39.6 L (45-73) % Lymph % (Auto) 48.8 H (20-40) % Milam % (Auto) 5.3 (2-11) % Eos % (Auto) 4.8 H (0-4) % Baso % (Auto) 1.3 (0-2) % Lymph # (Auto) 5.2 H (1.2-4.9) X10*3/uL Milam # (Auto) 0.6 (0.1-1.2) X10*3/uL Eos # (Auto) 0.5 H (0.0-0.4) X10*3/uL Baso # (Auto) 0.1 (0.0-0.2) X10*3/uL Abs Immat Gran (auto) 0.02 (0.00-0.03) X10*3/uL Absolute Neuts (auto) 4.2 (2.0-8.3) x10*3/uL Absolute Nucleated RBC 0.000 (0.0-0.012) X10*3/uL Nucleated RBC % (auto) 0.0 (0.0-0.2) /100WBC Smear Tech's Comments VERIFIED PT 11.1 (10.0-13.1) SEC Whole Blood PT (11.1-13.5) sec INR 1.0 (0.9-1.1) Whole Blood INR (0.9-1.1) APTT 34.8 (26.0-36.4) SEC VBG pH (7.32-7.43) VBG pCO2 mmHg VBG pO2 mmHg VBG HCO3 (22-26) mmol/L VBG O2 Saturation % VBG Base Excess mmol/L Sodium (135-145) mmol/L Potassium (3.3-5.1) mmol/L Chloride (96-108) mmol/L Carbon Dioxide (22-29) mmol/L Anion Gap (12-20) BUN (9-16) mg/dL Creatinine (0.5-1.4) mg/dL Estim Creat Clear Calc Estimated GFR POC Glucose 137 H (60-115) mg/dL Random Glucose (60-115) mg/dL Calcium (8.4-10.2) mg/dL Ammonia Total Creatine Kinase (38-174) U/L Troponin I High Sens (<3.5-35.0) ng/L Urine Color Urine Appearance Urine pH (5.0-9.0) Ur Specific [place] (1.005-1.025) Urine Protein (Neg-Trace) mg/dL Urine Glucose (UA) (Negative) mg/dL Urine Ketones (Negative) mg/dL Urine Blood (Negative) Urine Nitrite (Negative) Ur Leukocyte Esterase (Negative) Urine Opiates Screen (Not Detect) Urine Fentanyl Screen (Not Detect) Ur Barbiturates Screen (Not Detect) Ur Phencyclidine Scrn (Not Detect) Ur Amphetamines Screen (Not Detect) U Benzodiazepines Scrn (Not Detect) Urine Cocaine Screen (Not Detect) U Marijuana (THC) Screen (Not Detect) COVID-19 (TILA) (Negative) COVID-19 Clin Com 05/14/22 05/14/22 05/14/22 Range/Units 21:00 21:00 21:01 WBC (4.8-10.8) X10*3/uL RBC (4.60-5.80) X10*6/uL Hgb (14.0-18.0) g/dl Hct (42.0-52.0) % MCV (80.0-98.0) fL MCH (27.0-33.0) pg MCHC (31.0-36.0) g/dl RDW (11.0-16.0) % Plt Count (160-400) X10*3/uL MPV (9.4-12.4) fL Immature Gran % (Auto) (0.0-0.4) % Neut % (Auto) (45-73) % Lymph % (Auto) (20-40) % Milam % (Auto) (2-11) % Eos % (Auto) (0-4) % Baso % (Auto) (0-2) % Lymph # (Auto) (1.2-4.9) X10*3/uL Milam # (Auto) (0.1-1.2) X10*3/uL Eos # (Auto) (0.0-0.4) X10*3/uL Baso # (Auto) (0.0-0.2) X10*3/uL Abs Immat Gran (auto) (0.00-0.03) X10*3/uL Absolute Neuts (auto) (2.0-8.3) x10*3/uL Absolute Nucleated RBC (0.0-0.012) X10*3/uL Nucleated RBC % (auto) (0.0-0.2) /100WBC Smear Tech's Comments PT (10.0-13.1) SEC Whole Blood PT 11.7 (11.1-13.5) sec INR (0.9-1.1) Whole Blood INR 1.0 (0.9-1.1) APTT (26.0-36.4) SEC VBG pH (7.32-7.43) VBG pCO2 mmHg VBG pO2 mmHg VBG HCO3 (22-26) mmol/L VBG O2 Saturation % VBG Base Excess mmol/L Sodium 141 (135-145) mmol/L Potassium 4.3 (3.3-5.1) mmol/L Chloride 107 (96-108) mmol/L Carbon Dioxide 21 L (22-29) mmol/L Anion Gap 17 (12-20) BUN 19 H (9-16) mg/dL Creatinine 1.16 (0.5-1.4) mg/dL Estim Creat Clear Calc 87.5 Estimated GFR > 60 POC Glucose (60-115) mg/dL Random Glucose 135 H (60-115) mg/dL Calcium 9.6 (8.4-10.2) mg/dL Ammonia Total Creatine Kinase 162 (38-174) U/L Troponin I High Sens (<3.5-35.0) ng/L Urine Color Urine Appearance Urine pH (5.0-9.0) Ur Specific [place] (1.005-1.025) Urine Protein (Neg-Trace) mg/dL Urine Glucose (UA) (Negative) mg/dL Urine Ketones (Negative) mg/dL Urine Blood (Negative) Urine Nitrite (Negative) Ur Leukocyte Esterase (Negative) Urine Opiates Screen (Not Detect) Urine Fentanyl Screen (Not Detect) Ur Barbiturates Screen (Not Detect) Ur Phencyclidine Scrn (Not Detect) Ur Amphetamines Screen (Not Detect) U Benzodiazepines Scrn (Not Detect) Urine Cocaine Screen (Not Detect) U Marijuana (THC) Screen (Not Detect) COVID-19 (TILA) Negative (Negative) COVID-19 Clin Com See Note 05/14/22 05/14/22 05/14/22 Range/Units 21:39 22:11 23:35 WBC (4.8-10.8) X10*3/uL RBC (4.60-5.80) X10*6/uL Hgb (14.0-18.0) g/dl Hct (42.0-52.0) % MCV (80.0-98.0) fL MCH (27.0-33.0) pg MCHC (31.0-36.0) g/dl RDW (11.0-16.0) % Plt Count (160-400) X10*3/uL MPV (9.4-12.4) fL Immature Gran % (Auto) (0.0-0.4) % Neut % (Auto) (45-73) % Lymph % (Auto) (20-40) % Milam % (Auto) (2-11) % Eos % (Auto) (0-4) % Baso % (Auto) (0-2) % Lymph # (Auto) (1.2-4.9) X10*3/uL Milam # (Auto) (0.1-1.2) X10*3/uL Eos # (Auto) (0.0-0.4) X10*3/uL Baso # (Auto) (0.0-0.2) X10*3/uL Abs Immat Gran (auto) (0.00-0.03) X10*3/uL Absolute Neuts (auto) (2.0-8.3) x10*3/uL Absolute Nucleated RBC (0.0-0.012) X10*3/uL Nucleated RBC % (auto) (0.0-0.2) /100WBC Smear Tech's Comments PT (10.0-13.1) SEC Whole Blood PT (11.1-13.5) sec INR (0.9-1.1) Whole Blood INR (0.9-1.1) APTT (26.0-36.4) SEC VBG pH (7.32-7.43) VBG pCO2 mmHg VBG pO2 mmHg VBG HCO3 (22-26) mmol/L VBG O2 Saturation % VBG Base Excess mmol/L Sodium (135-145) mmol/L Potassium (3.3-5.1) mmol/L Chloride (96-108) mmol/L Carbon Dioxide (22-29) mmol/L Anion Gap (12-20) BUN (9-16) mg/dL Creatinine (0.5-1.4) mg/dL Estim Creat Clear Calc Estimated GFR POC Glucose (60-115) mg/dL Random Glucose (60-115) mg/dL Calcium (8.4-10.2) mg/dL Ammonia TNP Total Creatine Kinase (38-174) U/L Troponin I High Sens < 3.5 (<3.5-35.0) ng/L Urine Color Yellow Urine Appearance Clear Urine pH 5.0 (5.0-9.0) Ur Specific Mcm[place] >= 1.030 H (1.005-1.025) Urine Protein Negative (Neg-Trace) mg/dL Urine Glucose (UA) Negative (Negative) mg/dL Urine Ketones Negative (Negative) mg/dL Urine Blood Negative (Negative) Urine Nitrite Negative (Negative) Ur Leukocyte Esterase Negative (Negative) Urine Opiates Screen (Not Detect) Urine Fentanyl Screen (Not Detect) Ur Barbiturates Screen (Not Detect) Ur Phencyclidine Scrn (Not Detect) Ur Amphetamines Screen (Not Detect) U Benzodiazepines Scrn (Not Detect) Urine Cocaine Screen (Not Detect) U Marijuana (THC) Screen (Not Detect) COVID-19 (TILA) (Negative) COVID-19 Clin Com 05/15/22 05/15/22 Range/Units 01:15 23:35 WBC (4.8-10.8) X10*3/uL RBC (4.60-5.80) X10*6/uL Hgb (14.0-18.0) g/dl Hct (42.0-52.0) % MCV (80.0-98.0) fL MCH (27.0-33.0) pg MCHC (31.0-36.0) g/dl RDW (11.0-16.0) % Plt Count (160-400) X10*3/uL MPV (9.4-12.4) fL Immature Gran % (Auto) (0.0-0.4) % Neut % (Auto) (45-73) % Lymph % (Auto) (20-40) % Milam % (Auto) (2-11) % Eos % (Auto) (0-4) % Baso % (Auto) (0-2) % Lymph # (Auto) (1.2-4.9) X10*3/uL Milam # (Auto) (0.1-1.2) X10*3/uL Eos # (Auto) (0.0-0.4) X10*3/uL Baso # (Auto) (0.0-0.2) X10*3/uL Abs Immat Gran (auto) (0.00-0.03) X10*3/uL Absolute Neuts (auto) (2.0-8.3) x10*3/uL Absolute Nucleated RBC (0.0-0.012) X10*3/uL Nucleated RBC % (auto) (0.0-0.2) /100WBC Smear Tech's Comments PT (10.0-13.1) SEC Whole Blood PT (11.1-13.5) sec INR (0.9-1.1) Whole Blood INR (0.9-1.1) APTT (26.0-36.4) SEC VBG pH 7.38 (7.32-7.43) VBG pCO2 34 mmHg VBG pO2 65 mmHg VBG HCO3 20 L (22-26) mmol/L VBG O2 Saturation 89.0 % VBG Base Excess -3.6 mmol/L Sodium (135-145) mmol/L Potassium (3.3-5.1) mmol/L Chloride (96-108) mmol/L Carbon Dioxide (22-29) mmol/L Anion Gap (12-20) BUN (9-16) mg/dL Creatinine (0.5-1.4) mg/dL Estim Creat Clear Calc Estimated GFR POC Glucose (60-115) mg/dL Random Glucose (60-115) mg/dL Calcium (8.4-10.2) mg/dL Ammonia Total Creatine Kinase (38-174) U/L Troponin I High Sens (<3.5-35.0) ng/L Urine Color Urine Appearance Urine pH (5.0-9.0) Ur Specific [place] (1.005-1.025) Urine Protein (Neg-Trace) mg/dL Urine Glucose (UA) (Negative) mg/dL Urine Ketones (Negative) mg/dL Urine Blood (Negative) Urine Nitrite (Negative) Ur Leukocyte Esterase (Negative) Urine Opiates Screen Not Detected (Not Detect) Urine Fentanyl Screen Not Detected (Not Detect) Ur Barbiturates Screen Not Detected (Not Detect) Ur Phencyclidine Scrn Not Detected (Not Detect) Ur Amphetamines Screen Not Detected (Not Detect) U Benzodiazepines Scrn Not Detected (Not Detect) Urine Cocaine Screen Not Detected (Not Detect) U Marijuana (THC) Screen Not Detected (Not Detect) COVID-19 (TILA) (Negative) COVID-19 Clin Com Independent Interpretation I performed an independent interpretation of an: CT Scan Radiology Impression Discussion of test interpretation with radiology: I have reviewed the radiologist's reading. Chronic Conditions Patient?s care impacted by: Hypertension and Other (Atrial flutter) Core Measures AMI core measures followed: Yes Measure exclusions: not indicated Critical Care Time Critical Care Time Critical Care Time: No Discharge Plan Discharge Clinical Impression: Left-sided weakness, Altered mental status, Numbness on left side, Chest pain Patient Disposition: Admitted As Inpatient Prescriptions: No Action aspirin [Adult Aspirin Regimen] 81 mg tablet,delayed release (DR/EC) 81 mg PO DAILY Qty: 120 3RF Hold Instructions: Resume on 05/30/20. removal small polyp Eliquis 5 mg tablet 5 mg PO BID 90 Days Qty: 180 3RF famotidine 20 mg tablet 20 mg PO BID Qty: 60 3RF cyclobenzaprine 10 mg Tablet 10 mg PO TID PRN (Reason: Pain) atorvastatin 80 mg tablet 1 tab PO BEDTIME albuterol sulfate 2.5 mg /3 mL (0.083 %) Solution For Nebulization 2.5 mg INHALATION TID hydrocortisone [Proctozone-HC] 2.5 % cream with perineal applicator MT nitroglycerin 0.4 mg Tablet, Sublingual 0.4 mg SUBLINGUAL Q5M PRN (Reason: Chest Pain) Rx Instructions: do not exceed 3 doses per episode albuterol sulfate 90 mcg/actuation Hfa Aerosol Inhaler 2 puff INHALATION Q4-6H PRN (Reason: Shortness Of Breath Or Wheezing) fluticasone propionate [Flovent HFA] 110 mcg/actuation Hfa Aerosol Inhaler 2 puff INHALATION BID omega-3 fatty acids-fish oil [Fish Oil] 360-1,200 mg Capsule 2 cap PO BID oxycodone-acetaminophen [Percocet] 5-325 mg tablet 1 tab PO Q4-6H PRN (Reason: pain) Qty: 30 0RF Rx Instructions: Partial Fill upon patient request. glipizide 10 mg tablet 10 mg PO DAILY niacin 500 mg tablet extended release 24 hr 500 mg PO BEDTIME tramadol 50 mg tablet 50 mg PO DAILY PRN (Reason: Pain) amlodipine 10 mg tablet 10 mg PO DAILY chlorthalidone 50 mg tablet 50 mg PO DAILY fenofibrate 160 mg tablet 160 mg PO DAILY metformin 500 mg tablet 500 mg PO BID allopurinol 100 mg tablet 200 mg PO BID cholecalciferol (vitamin D3) 50 mcg (2,000 unit) capsule 50 mcg PO QAM loratadine 10 mg tablet 10 mg PO DAILY acetaminophen [Mapap (acetaminophen)] 500 mg capsule 500 mg PO Q8H PRN (Reason: Pain) Coricidin HBP Max Lkfa-Qdg-Mxs 10-325-200 mg capsule 2 cap PO Q4H Rx Instructions: do not exceed 10 capsules in 24 hours losartan 50 mg tablet 50 mg PO QAM Creon 24,000-76,000 -120,000 unit capsule,delayed release(DR/EC) 1 cap PO QID Qty: 120 2RF Rx Instructions: administer with meals and/or snacks Benefiber Clear SF (dextrin) 3 gram/3.5 gram powder in packet 1 packet PO DAILY Qty: 28 5RF Rx Instructions: mix into at least 4 oz water or juice before administering docusate sodium 100 mg capsule 200 mg PO BEDTIME Qty: 180 3RF Rx Instructions: irina dos capsula cada noche omeprazole 40 mg capsule,delayed release(DR/EC) 40 mg PO DAILY Qty: 30 3RF Trulicity 3 mg/0.5 mL pen injector subcut QWEEK lidocaine [Lidoderm] 5 % adhesive patch,medicated 1 - 2 patch topical DAILY PRN (Reason: pain) fluticasone propionate 50 mcg/actuation spray,suspension 2 spray intranasal DAILY PRN metoprolol tartrate 50 mg tablet 75 mg PO
--- NOTE | 2022-05-14 21:04 | ECG_ITS ---
Test Reason : STROKE Blood Pressure : / mmHG Vent. Rate : 089 BPM Atrial Rate : 089 BPM P-R Int : 138 ms QRS Dur : 098 ms QT Int : 354 ms P-R-T Axes : -02 017 099 degrees QTc Int : 430 ms Poor data quality, interpretation may be adversely affected Normal sinus rhythm RSR' or QR pattern in V1 suggests right ventricular conduction delay Nonspecific T wave abnormality Abnormal ECG When compared with ECG of 07-DEC-2021 19:12, Nonspecific T wave abnormality has replaced inverted T waves in Inferior leads T wave inversion less evident in Lateral leads QT has shortened Referred By: Delphine Kim Electronically Signed By:AMINTA SMITH
[2022-05-14 21:07] LABS: Prothrombin Time Whole Bld POC 11.7 sec (11.1-13.5)
[2022-05-14 21:08] VITALS: BP 115/68; PULSE 89; RESP 16; O2SAT 95; BMI 36.9
[2022-05-14 21:14] LABS: Basophils Absolute Auto 0.1 X10*3/uL (0.0-0.2); Basophils Percent Auto 1.3 % (0-2); Eosinophils Absolute Auto 0.5 X10*3/uL (0.0-0.4); Eosinophils Percent Auto 4.8 % (0-4); Hematocrit 42.4 % (42.0-52.0); Hemoglobin 13.9 g/dl (14.0-18.0); Imm Gran Abs Auto 0.02 X10*3/uL (0.00-0.03); Imm Gran Pct Auto 0.2 % (0.0-0.4); Lymphocytes Absolute Auto 5.2 X10*3/uL (1.2-4.9); Lymphocytes Percent Auto 48.8 % (20-40); MANUAL DIFF FLAG SCAN; Mean Corpuscular HGB Conc 32.8 g/dl (31.0-36.0); Mean Corpuscular Hemoglobin 27.5 pg (27.0-33.0); Mean Platelet Volume 9.9 fL (9.4-12.4); Monocytes Absolute Auto 0.6 X10*3/uL (0.1-1.2); Monocytes Percent Auto 5.3 % (2-11); Neutrophils Absolute Auto 4.2 x10*3/uL (2.0-8.3); Neutrophils Percent Auto 39.6 % (45-73); Platelet Count 367 X10*3/uL (160-400); Red Blood Count 5.05 X10*6/uL (4.60-5.80); Red Cell Distribution Width 13.2 % (11.0-16.0); SCAN SMEAR FLAG 1; White Blood Count 10.7 X10*3/uL (4.8-10.8)
--- NOTE | 2022-05-14 21:15 | MHC.EDTECH ---
PT CAME IN VIA EMS WITH STROKE SYMPTOMS ,IMMEDIATELY WENT TO CAT SCAN ,POC AND STROKE INR DONE ,EKG TAKEN ,LABS AND COVID SWAB COLLECTED AND LENT TO LAB ,PT WAS CHANGE INTO HOSPITAL ATTIRE ,PATIENT WAS HOOKED TO TO VICE PRESIDENT QUALITY IMPROVEMENT ,VITALS SIGN TAKEN .
[2022-05-14 21:25] LABS: Prothrombin Time 11.1 SEC (10.0-13.1)
[2022-05-14 21:28] LABS: Partial Thromboplastin Time 34.8 SEC (26.0-36.4)
[2022-05-14 21:31] VITALS: BMI 38.0
[2022-05-14 21:32] VITALS: TEMP 36.4
[2022-05-14 21:32] LABS: Stroke Lab Use COMPLETE
[2022-05-14 21:35] LABS: Anion Gap 17 (12-20); Blood Urea Nitrogen 19 mg/dL (9-16); Calcium 9.6 mg/dL (8.4-10.2); Carbon Dioxide 21 mmol/L (22-29); Chloride 107 mmol/L (96-108); Creatinine Clr Calc Pharmacy 87.5; Estimated Glomerular Filt Rate > 60; Glucose Random 135 mg/dL (60-115); Potassium 4.3 mmol/L (3.3-5.1); Sodium 141 mmol/L (135-145)
[2022-05-14] MEDS: Famotidine/PF 20 MG/2 ML VIAL IVPUSH (21:36)
[2022-05-14] MEDS: diphenhydrAMINE HCL 50 MG/ML VIAL IVPUSH (21:36)
[2022-05-14] MEDS: methylPREDNISolone Sod Succ 125 MG/2 ML VIAL IVPUSH (21:37)
[2022-05-14 21:39] LABS: COVID-19 Test Negative (Negative); IDNOW Serial# 16C4AD1C
[2022-05-14 21:45] LABS: SLIDE REVIEW VERIFIED
[2022-05-14 21:57] VITALS: BP 119/68; PULSE 90; RESP 16; TEMP 36.8; O2SAT 97
--- NOTE | 2022-05-14 22:04 | PC.NURSE ---
pt has urge to urinate yet unable to bladder scan to follow
[2022-05-14 22:08] LABS: Troponin-I High Sensitivity < 3.5 ng/L (<3.5-35.0)
--- NOTE | 2022-05-14 22:35 | PC.NURSE ---
Addendum entered by Jacinda Caro 05/14/22 22:40: voided 780 mL Addendum entered by Jacinda Caro 05/14/22 22:39: provider notified no straight cath necessary at this time Original Note: after obtaining order to straight cath pt, pt was eventually able to void in a urinal
[2022-05-14 23:42] LABS: Appearance Urine Clear; Color Urine Yellow; Glucose Urine UA Negative (Negative); Leukocyte Esterase Urine Negative (Negative); Nitrite Urine Negative (Negative); Specific Gravity - Urine >= 1.030 (1.005-1.025); Urine Blood Negative (Negative); Urine Ketones Negative (Negative); Urine Protein Negative (Neg-Trace)
[2022-05-15 00:46] LABS: Amphetamine Screen Urine Not Detected (Not Detect); Barbiturates, Urine Not Detected (Not Detect); Benzodiazepines Screen Urine Not Detected (Not Detect); Cannabinoid Screen Urine Not Detected (Not Detect); Cocaine Screen Urine Not Detected (Not Detect); Fentanyl, urine Not Detected (Not Detect); Opiate Screen Urine Not Detected (Not Detect); Phencyclidine Screen Urine Not Detected (Not Detect)
[2022-05-15 01:22] LABS: VBG Base Excess -3.6 mmol/L; VBG HCO3 20 mmol/L (22-26); VBG pCO2 34 mmHg; VBG pH 7.38 (7.32-7.43); VBG pO2 65 mmHg
[2022-05-15 01:27] LABS: Ammonia 37 umol/L (13-55)
[2022-05-15 01:30] LABS: Venous Blood Gas Refer to POC result
--- NOTE | 2022-05-15 02:26 | PC.NURSE ---
no apparent distress, pt resting quietly
[2022-05-15 02:27] LABS: Troponin-I High Sensitivity < 3.5 ng/L (<3.5-35.0)
--- NOTE | 2022-05-15 04:03 | PC.NURSE ---
called pharmacy to verify meds, no answer will attempt to call again
--- NOTE | 2022-05-15 04:46 | PM.IMHP ---
History of Present Illness Date of Service: 05/15/22 Chief Complaint: gen weakness 57-year-old male with a past medical history of hypertension, hyperlipidemia, diabetes, CAD, AFib on Eliquis, history of CVA with mild residual left-sided weakness is alone presented to the hospital today with a chief complaint of generalized weakness. Patient is a poor historian. Patient mentioned that he had prior history of CVA, he has mild residual weakness. Which has been chronic. But to fairly independent at home. Mentions that over the past couple days he has been having increased weakness in her left side also noted to have left hand numbness. Mentioned that he had left hand numbness present for the past few days. Denies any falls or trauma. Denies any neck pain. Patient also reports lower chest/upper abdominal discomfort. Associated mild nausea. Denies any diarrhea. Patient lives alone, has a friend in the emergency contact list, not reachable; patient mentioned that he has not spoken to anybody in a mild; unknown patient's baseline mental status/exam status. Patient denies any fever chills cough. Denies any sputum production. Denies any urinary symptoms. Review of all other systems is limited. ER course: Per ER team, patient noted to have slightly decreased at stent on the left side compared to the right side; also patient does report decrease sensation to the soft touch on the left upper and left lower extremities-which is new; EKG was nonischemic, troponin were negative; urinalysis was negative for any acute infection; chest x-ray showed no pneumonia. Admitted to the hospital for further management. [facility] Medical History Adhesive capsulitis of left shoulder Anal fistula Arthritis Asthma Atrial flutter CAD (coronary artery disease) Cellulitis Depression Diabetes GERD (gastroesophageal reflux disease) Gout History of panic attacks Hx of myocardial infarction Hypertension Low back pain Migraines Perianal abscess Scoliosis Seizures Tubular adenoma Family History Father No problems noted. Mother History of stomach cancer History of liver cancer Brother No problems noted. Surgical History H/O colonoscopy History of angioplasty History of appendectomy History of esophagogastroduodenoscopy (EGD) History of incision and drainage (~10/19/21) History of open heart surgery History of sinus surgery History of umbilical hernia repair Social History Household Members: Children Are you a primary home health aide caregiver to a significant other at home: Yes (children) Do you presently have visiting nurse or other home services: No Alcohol intake: never Patient Tobacco Use Status: Never used Tobacco Advance Directives: No Advance Directives Information Provided: Yes Current occupational status: disabled Meds Allergies Allergy/AdvReac Type Severity Reaction Status Date / Time Iodinated Contrast Media Allergy Intermediate Difficulty Verified 05/08/22 11:14 [IV CONTRAST] Breathing Penicillins Allergy Mild RASH Verified 05/08/22 11:14 Sulfa (Sulfonamide Allergy Mild RASH Verified 05/08/22 11:14 Antibiotics) codeine AdvReac Mild STOMACH Verified 05/08/22 11:14 UPSET Docusate Calcium Allergy Mild rash Uncoded 05/08/22 11:14 Active Medications: Current Medications Acetaminophen (Acetaminophen 325 Mg Tablet) 650 mg PO Q6H PRN PRN Reason: Pain, Mild (Pain Scale 1-3) Glucose (Glucose Gel 15 Gm Gel..Gram.) 15 gm PO Q15M PRN; Protocol PRN Reason: per Hypoglycemia Standing Ord. Heparin Sodium (Porcine) (Heparin Sodium,Porcine 5,000 Unit/Ml Vial) 5,000 unit SUBCUT Q8H [facility] Dextrose (D10) 250 mls @ 750 mls/hr IV Q15M PRN; Protocol PRN Reason: per Hypoglycemia Standing Ord. Insulin Human Lispro (Insulin Lispro 100 Unit/Ml 3 Ml Vial) [facility]; Protocol Melatonin (Melatonin 3 Mg Tablet) 6 mg PO BEDTIME PRN PRN Reason: Insomnia Senna (Sennosides 8.6 Mg Tablet) 17.2 mg PO BEDTIME PRN PRN Reason: Constipation Sodium Chloride (0.9 % Sodium Chloride Flush 3 Ml Syringe) 3 ml IVFLUSH [facility] Home Medications Medication Instructions Recorded Confirmed Last Taken Type allopurinol 100 mg tablet 200 mg PO BID 02/17/20 05/06/22 Unknown History amlodipine 10 mg tablet 10 mg PO DAILY 02/17/20 05/06/22 09/21/21 History chlorthalidone 50 mg tablet 50 mg PO DAILY 02/17/20 05/06/22 Unknown History fenofibrate 160 mg tablet 160 mg PO DAILY 02/17/20 05/06/22 Unknown History metformin 500 mg tablet 500 mg PO BID 02/17/20 05/06/22 Unknown History tramadol 50 mg tablet 50 mg PO DAILY PRN Pain 02/17/20 05/06/22 Unknown History glipizide 10 mg tablet 10 mg PO DAILY 10/25/20 05/06/22 Unknown History niacin 500 mg tablet,extended 500 mg PO BEDTIME cholesterol 10/25/20 05/06/22 Unknown History release 24 hr cholecalciferol (vitamin D3) 50 50 mcg PO QAM 01/29/21 05/06/22 Unknown History mcg (2,000 unit) capsule loratadine 10 mg tablet 10 mg PO DAILY 01/29/21 05/06/22 09/21/21 History DM 10 mg-acetaminophen 325 mg-GG 2 cap PO Q4H 08/15/21 05/06/22 Unknown History 200 mg capsule (Coricidin HBP Max Cdpj-Mmb-Cml) acetaminophen 500 mg capsule 500 mg PO Q8H PRN Pain 08/15/21 05/06/22 Unknown History (Mapap (acetaminophen)) losartan 50 mg tablet 50 mg PO QAM 08/15/21 05/06/22 Unknown History albuterol sulfate 2.5 mg/3 mL 2.5 mg inhalation TID 08/27/21 05/06/22 Unknown History (0.083 %) solution for nebulization albuterol sulfate 90 mcg/actuation 2 puff inhalation Q4-6H PRN 08/27/21 05/06/22 Unknown History aerosol inhaler Shortness Of Breath Or Wheezing atorvastatin 80 mg tablet 1 tab PO BEDTIME 08/27/21 05/06/22 Unknown History cyclobenzaprine 10 mg tablet 10 mg PO TID PRN Pain 08/27/21 05/06/22 Unknown History fluticasone propionate 110 2 puff inhalation BID 08/27/21 05/06/22 Unknown History mcg/actuation HFA aerosol inhaler (Flovent HFA) hydrocortisone 2.5 % topical cream FL 08/27/21 05/06/22 Unknown History with perineal applicator (Proctozone-HC) nitroglycerin 0.4 mg sublingual 0.4 mg sublingual Q5M PRN Chest 08/27/21 05/06/22 Unknown History tablet Pain omega-3 fatty acids-fish oil 360 2 cap PO BID 08/27/21 05/06/22 Unknown History mg-1,200 mg capsule (Fish Oil) dulaglutide 3 mg/0.5 mL mg subcut QWEEK 12/19/21 05/06/22 Unknown History subcutaneous pen injector (Trulicity) fluticasone propionate 50 2 spray intranasal DAILY PRN 12/19/21 05/06/22 Unknown History mcg/actuation nasal spray,suspension lidocaine 5 % topical patch 1 - 2 patch topical DAILY PRN pain 12/19/21 05/06/22 Unknown History (Lidoderm) metoprolol tartrate 50 mg tablet 75 mg PO 12/19/21 05/06/22 Unknown History Physical Exam Vital Signs and Narrative: Vital Signs: Last Vital Signs Temp 98.2 F 05/14/22 21:57 Pulse 90 05/14/22 21:57 Resp 16 05/14/22 21:57 BP 119/68 05/14/22 21:57 Pulse Ox 97 05/14/22 21:57 O2 Del Method 05/14/22 21:57 BMI result Body Mass Index 38.0 Gen: Appears be in no acute distress HEENT: NCAT, Moist mucosa. Pulmonary: Vesicular breath sounds, fair air entry CVS: Normal S1-S2 Abdomen: BS+, Soft, Nontender Extremities: Warm well perfused Neuro: Alert and awake. Oriented times 2-3; slightly decreased strength on the left side compared to the right side. And patient also reports slightly decreased sensations on the left upper and lower extremities. No facial asymmetry noted. Tongue is midline. Results Labs 05/14/22 21:00 05/14/22 21:00 Labs: Laboratory Results - last 24 hr 05/14/22 05/14/22 05/14/22 20:57 21:00 21:00 MCV 84.0 MCH 27.5 MCHC 32.8 RDW 13.2 Plt Count 367 MPV 9.9 Immature Gran % (Auto) 0.2 Neut % (Auto) 39.6 L Lymph % (Auto) 48.8 H [place] % (Auto) 5.3 Eos % (Auto) 4.8 H Baso % (Auto) 1.3 Lymph # (Auto) 5.2 H [place] # (Auto) 0.6 Eos # (Auto) 0.5 H Baso # (Auto) 0.1 Abs Immat Gran (auto) 0.02 Absolute Neuts (auto) 4.2 Absolute Nucleated RBC 0.000 Nucleated RBC % (auto) 0.0 Smear Tech's Comments VERIFIED PT 11.1 Whole Blood PT INR 1.0 Whole Blood INR APTT 34.8 VBG pH VBG pCO2 VBG pO2 VBG HCO3 VBG O2 Saturation VBG Base Excess Anion Gap Estim Creat Clear Calc Estimated GFR POC Glucose 137 H Random Glucose Calcium Ammonia Total Creatine Kinase Troponin I High Sens Urine Color Urine Appearance Urine pH Ur Specific [place] Urine Protein Urine Glucose (UA) Urine Ketones Urine Blood Urine Nitrite Ur Leukocyte Esterase Urine Opiates Screen Urine Fentanyl Screen Ur Barbiturates Screen Ur Phencyclidine Scrn Ur Amphetamines Screen U Benzodiazepines Scrn Urine Cocaine Screen U Marijuana (THC) Screen COVID-19 (TILA) COVID-Alytics 05/14/22 05/14/22 05/14/22 21:00 21:00 21:01 MCV MCH MCHC RDW Plt Count MPV Immature Gran % (Auto) Neut % (Auto) Lymph % (Auto) [place] % (Auto) Eos % (Auto) Baso % (Auto) Lymph # (Auto) [place] # (Auto) Eos # (Auto) Baso # (Auto) Abs Immat Gran (auto) Absolute Neuts (auto) Absolute Nucleated RBC Nucleated RBC % (auto) Smear Tech's Comments PT Whole Blood PT 11.7 INR Whole Blood INR 1.0 APTT VBG pH VBG pCO2 VBG pO2 VBG HCO3 VBG O2 Saturation VBG Base Excess Anion Gap 17 Estim Creat Clear Calc 87.5 Estimated GFR > 60 POC Glucose Random Glucose 135 H Calcium 9.6 Ammonia Total Creatine Kinase 162 Troponin I High Sens Urine Color Urine Appearance Urine pH Ur Specific [place] Urine Protein Urine Glucose (UA) Urine Ketones Urine Blood Urine Nitrite Ur Leukocyte Esterase Urine Opiates Screen Urine Fentanyl Screen Ur Barbiturates Screen Ur Phencyclidine Scrn Ur Amphetamines Screen U Benzodiazepines Scrn Urine Cocaine Screen U Marijuana (THC) Screen COVID-19 (TILA) Negative COVID-Alytics See Note 05/14/22 05/14/22 05/14/22 21:39 22:11 23:35 MCV MCH MCHC RDW Plt Count MPV Immature Gran % (Auto) Neut % (Auto) Lymph % (Auto) [place] % (Auto) Eos % (Auto) Baso % (Auto) Lymph # (Auto) [place] # (Auto) Eos # (Auto) Baso # (Auto) Abs Immat Gran (auto) Absolute Neuts (auto) Absolute Nucleated RBC Nucleated RBC % (auto) Smear Tech's Comments PT Whole Blood PT INR Whole Blood INR APTT VBG pH VBG pCO2 VBG pO2 VBG HCO3 VBG O2 Saturation VBG Base Excess Anion Gap Estim Creat Clear Calc Estimated GFR POC Glucose Random Glucose Calcium Ammonia TNP Total Creatine Kinase Troponin I High Sens < 3.5 Urine Color Yellow Urine Appearance Clear Urine pH 5.0 Ur Specific [place] >= 1.030 H Urine Protein Negative Urine Glucose (UA) Negative Urine Ketones Negative Urine Blood Negative Urine Nitrite Negative Ur Leukocyte Esterase Negative Urine Opiates Screen Urine Fentanyl Screen Ur Barbiturates Screen Ur Phencyclidine Scrn Ur Amphetamines Screen U Benzodiazepines Scrn Urine Cocaine Screen U Marijuana (THC) Screen COVID-19 (TILA) COVID-19 [employer] 05/15/22 05/15/22 05/15/22 01:10 01:15 01:57 MCV MCH MCHC RDW Plt Count MPV Immature Gran % (Auto) Neut % (Auto) Lymph % (Auto) [place] % (Auto) Eos % (Auto) Baso % (Auto) Lymph # (Auto) [place] # (Auto) Eos # (Auto) Baso # (Auto) Abs Immat Gran (auto) Absolute Neuts (auto) Absolute Nucleated RBC Nucleated RBC % (auto) Smear Tech's Comments PT Whole Blood PT INR Whole Blood INR APTT VBG pH 7.38 VBG pCO2 34 VBG pO2 65 VBG HCO3 20 L VBG O2 Saturation 89.0 VBG Base Excess -3.6 Anion Gap Estim Creat Clear Calc Estimated GFR POC Glucose Random Glucose Calcium Ammonia 37 Total Creatine Kinase Troponin I High Sens < 3.5 Urine Color Urine Appearance Urine pH Ur Specific [place] Urine Protein Urine Glucose (UA) Urine Ketones Urine Blood Urine Nitrite Ur Leukocyte Esterase Urine Opiates Screen Urine Fentanyl Screen Ur Barbiturates Screen Ur Phencyclidine Scrn Ur Amphetamines Screen U Benzodiazepines Scrn Urine Cocaine Screen U Marijuana (THC) Screen COVID-19 (TILA) COVID-19 [employer] 05/15/22 23:35 MCV MCH MCHC RDW Plt Count MPV Immature Gran % (Auto) Neut % (Auto) Lymph % (Auto) [place] % (Auto) Eos % (Auto) Baso % (Auto) Lymph # (Auto) [place] # (Auto) Eos # (Auto) Baso # (Auto) Abs Immat Gran (auto) Absolute Neuts (auto) Absolute Nucleated RBC Nucleated RBC % (auto) Smear Tech's Comments PT Whole Blood PT INR Whole Blood INR APTT VBG pH VBG pCO2 VBG pO2 VBG HCO3 VBG O2 Saturation VBG Base Excess Anion Gap Estim Creat Clear Calc Estimated GFR POC Glucose Random Glucose Calcium Ammonia Total Creatine Kinase Troponin I High Sens Urine Color Urine Appearance Urine pH Ur Specific [place] Urine Protein Urine Glucose (UA) Urine Ketones Urine Blood Urine Nitrite Ur Leukocyte Esterase Urine Opiates Screen Not Detected Urine Fentanyl Screen Not Detected Ur Barbiturates Screen Not Detected Ur Phencyclidine Scrn Not Detected Ur Amphetamines Screen Not Detected U Benzodiazepines Scrn Not Detected Urine Cocaine Screen Not Detected U Marijuana (THC) Screen Not Detected COVID-19 (TILA) COVID-19 Clin Com Imaging Radiologist's Impressions: Impressions Head CT 05/14/22 21:09 IMPRESSION: No acute intracranial pathology. This critical result was discussed with SPEEDOMETER MECHANIC Delphine Kim at 2118 hours on 05/14/2022. It was ascertained that the content and urgency of the report was understood at the time of direct communication. Head/Neck CTA 05/14/22 21:17 IMPRESSION: 1. No evidence of acute intracranial hemorrhage or edematous territorial infarction. Mild underlying microangiopathy. 2. CTA of the head and neck without proximal occlusion or flow-limiting stenosis. Chest X-Ray 05/14/22 22:53 IMPRESSION: Cardiomegaly with mild pulmonary vascular congestion. Assessment and Plan (1) Chest pain: Status: Acute Plan 57-year-old male with a past medical history of hypertension, hyperlipidemia, diabetes, CAD, AFib on Eliquis, history of CVA with mild residual left-sided weakness is alone presented to the hospital today with a chief complaint of generalized weakness/left-sided weakness/left-sided numbness. Left-sided weakness/left-sided numbness: Patient reports he had mild left-sided weakness from before. But left-sided numbness is new. More so on the left hand. Present for the past few days. CT head showed no acute findings Unable to correlate the patient's baseline neurological status/mental status. No active signs of infection Plan -neurology consult -will obtain TSH, folate, B12, RPR -fall precautions -PT/OTeventuality -speech and swallow eval -neurochecks HTN/HLD: Continue home medications. Hold home losartan, amlodipine for now given blood pressure on the normal side. History of AFib: Continue home Eliquis, metoprolol. Rate controlled History of diabetes: Hold home oral hypoglycemic agents. Insulin sliding scale DVT prophylaxis: Patient on Eliquis Code status: Full code Time Spent With Patient Time: Total time managing care of this patient today ____ minutes. Quality Stroke Does the patient have a stroke diagnosis?: No VTE Prior VTE?: No VTE Risk Level:: Medical - moderate - high VTE Device Contraindication: Treatment Not Indicated VTE Drug Contraindication: N/A - Med Ordered
--- NOTE | 2022-05-15 06:42 | PC.NURSE ---
med rec complete
[2022-05-15 06:56] LABS: Alanine Aminotransferase 30 U/L (0-40); Albumin Level 4.3 g/dL (3.5-5.0); Alkaline Phosphatase 110 U/L (39-117); Anion Gap 19 (12-20); Aspartate Amino Transferase 21 U/L (5-37); B Type Natriuretic Peptide < 10 pg/mL (<100); Bilirubin Total 0.5 mg/dL (0.0-1.0); Blood Urea Nitrogen 20 mg/dL (9-16); Calcium 10.1 mg/dL (8.4-10.2); Carbon Dioxide 19 mmol/L (22-29); Chloride 107 mmol/L (96-108); Creatinine Clr Calc Pharmacy 95.8; Estimated Glomerular Filt Rate > 60; Glucose Random 211 mg/dL (60-115); Potassium 4.6 mmol/L (3.3-5.1); Sodium 140 mmol/L (135-145); Total Protein 7.6 g/dL (6.5-8.0)
--- NOTE | 2022-05-15 07:00 | CA_ITS ---
Transthoracic Echocardiogram Patient (Last, First, Middle): Brannon Leavitt, Gender: Male Date of : 1965 Age: 57 Procedure Date: 05/15/2022 Procedure Type: Transthoracic Echocardiogram Location: S3E Height: 175.26 cm Weight: 116.58 kg BSA: 2.30 m2 Heart Rate: 97 bpm BP: 168 / 94 mmHg Safety Physician: LAURENCE Referring MD: Max Rogers MD Symptoms: chest pain Study Quality: Adequate w contrast ECG Rhythm: Sinus Conclusions: - The left ventricular systolic function is normal. The calculated ejection fraction is 69% by biplane method. - No obvious valvular pathology seen on this study. Findings Procedure Information Contrast agent, definity, is being given per protocol without apparent complications. Left Ventricle Normal left ventricular cavity size. There is moderately increased left ventricular wall thickness. The left ventricular systolic function is normal. The calculated ejection fraction is 69% by biplane method. There is no evidence of regional wall motion abnormalities. Diastolic function is normal for age. Right Ventricle Normal right ventricular cavity size. There is low normal right ventricular systolic function. Atria Both atria are normal in size. Aortic Valve There is a normal trileaflet aortic valve. There is mild calcification of the aortic valve. There is no aortic valve stenosis. There is no aortic valve regurgitation. Mitral Valve The mitral valve appears normal. There is no mitral valve regurgitation. There is no mitral valve stenosis. Pulmonic Valve The pulmonic valve is likely normal. Tricuspid Valve Normal tricuspid valve structure. There is trace tricuspid valve regurgitation. There is no evidence of pulmonary hypertension. Great Vessels The asc aorta is normal in size. Small plaque is seen in the sino tubular ridge. Venous The inferior vena cava is normal in size and collapses less than 50% with inspiration. Pericardium/Pleural There is no evidence of pericardial effusion. Prior Study Comparison Changes noted compared to prior study dated: 12/19/2018. Recommendations, Care & Conclusions No obvious valvular pathology seen on this study. Measurements 2D Linear Measurements IVSd: 1.43 0.6-0.9/0.6-1.0 cm LVIDd: 4.21 3.9-5.3/4.2-5.9 cm LVIDd Index: 1.83 2.4-3.2/2.2-3.1 cm/m2 LVIDs: 3.17 2.0-3.6 cm LVPWd: 1.25 0.7-1.1 cm LA Diam: 4.40 2.7-3.8/3.0-4.0 cm LAIDs Index: 1.91 1.5-2.3 cm/m2 LV Mass: 262.56 67-162/88-224 g LV Mass Index: 114.16 43-95/49-115 g/m2 LVOT Diam: 2.10 3.0+(-)1.3 cm 2D Systolic Function EF 4C: 73.40 >55% EF 2C: 63.50 >55% EF BiP: 69.40 >55% Mitral Valve MV Pk E: 0.93 MV PK A: 0.87 MV Decel Time: 110.00 E/A: 1.10 E'Lateral: 7.07 E'Medial: 6.20 E/E' Med: 15.10 E/E' Lat: 13.20 PHT: 32.00 MVA PHT: 6.88 Decel Falls: 8.52 Aortic Valve AoV Pk Stas: 2.00 AoV Mn Stas: 1.44 AoV VTI: 0.35 AoV Pk Grad: 16.00 Aov Mn Grad: 10.00 LESLY Cont.VTI: 2.15 LVOT LVOT Pk Stas: 1.27 LVOT Mn Stas: 0.84 LVOT VTI: 0.22 LVOT Pk Grad: 6.00 LVOT Mn Grad: 4.00 LVOT Diam: 2.10 LVOT Area: 3.46 Diastolic Function MV Pk E: 0.93 MV Pk A: 0.87 E/A: 1.10 E'Medial: 6.20 E/E' Med: 15.10 E' Laterial: 7.07 E/E' Lat: 13.20 Right Ventricle TAPSE (mm): 15.30 TVS' Stas: 12.40 Tricuspid Valve RA Press: 8.00 Great Vessels Aorta Sinus of Valsalva: 3.00 2.0-3.5 cm Ao Asc: 3.60 2.1-3.4 cm Pulmonary Valve PV Pk Stas: 1.12 Peak PV Grad: 5.00 Updated in Other Vendor System with Status of Final Christian Dudley MD electronically signed on 05/15/2022 4:11:43 PM with status of Final
[2022-05-15 07:25] LABS: Folate 11.4 ng/mL (> or = 4.0); Thyroid Stimulating Hormone 0.61 uIU/mL (0.32-4.0); Vitamin B12 393 pg/mL (200-900)
[2022-05-15 07:26] LABS: Syphilis Screen Reactive (Nonreactive)
--- NOTE | 2022-05-15 07:26 | PC.NURSE ---
alert, uses l hand/arm to drink without difficulty, passed swallow eval, skin wpd, report to geovanny arzate
[2022-05-15 07:47] VITALS: BP 168/94; PULSE 102; RESP 20; TEMP 37; O2SAT 95
[2022-05-15 07:59] LABS: Glucose, Whole Blood 186 mg/dL (60-115)
[2022-05-15] MEDS: Metoprolol Succinate ER 50 MG TAB.ER.24H PO (08:31)
[2022-05-15] MEDS: Apixaban 5 MG TABLET PO ×2 (08:31→20:06)
[2022-05-15] MEDS: Insulin Lispro 100 UNIT/ML 3 ML VIAL SUBCUT ×4 (08:54→21:12)
[2022-05-15] MEDS: 0.9 % Sodium Chloride Flush 3 ML SYRINGE IVFLUSH ×3 (08:55→20:07)
--- NOTE | 2022-05-15 09:24 | PHA.MEDREC ---
Pharmacy Consult ? Medication Reconciliation Pharmacy has completed the medication reconciliation. Used med box list from [facility]
[2022-05-15] MEDS: Omeprazole 40 MG CAPSULE.DR PO (09:37)
[2022-05-15] MEDS: Cholecalciferol (Vitamin D3) 25 MCG TABLET 50 MCG PO ×2 (09:37→10:52)
[2022-05-15] MEDS: amLODIPine Besylate 10 MG TABLET PO (09:38)
[2022-05-15] MEDS: metFORMIN HCl 500 MG TABLET PO ×2 (09:38→21:09)
[2022-05-15] MEDS: Fenofibrate 160 MG TABLET PO (09:38)
[2022-05-15] MEDS: Famotidine 20 MG TABLET PO ×2 (09:38→20:06)
[2022-05-15] MEDS: Losartan Potassium 50 MG TABLET PO ×2 (09:38→11:45)
[2022-05-15] MEDS: Metoprolol Tartrate 25 MG TABLET 75 MG PO ×2 (09:43→20:06)
[2022-05-15] MEDS: glipiZIDE 10 MG TABLET PO (09:44)
--- NOTE | 2022-05-15 10:20 | MHC.CM.PN ---
EMR REVIEWED, PT ADMITTED W/GENERALIZED WEAKNESS, PER HOSPITALIST PLAN FOR MRI AND NEURO CONSULT, CM MET W/PT VIA REAL ESTATE DIRECTOR, PT REPORTS HE LIVES W/HIS 12 AND 13YO CHILDREN WHO ARE BEING CARED FOR BY A CLOSE FRIEND, PT REPORTS HE USES A CANE AND DIABETIC SUPPLIES FOR DME, PT REPORTS HE IS ON HOME DELIVERY FOR MEDS/SUPPLIES, PT ALSO REPORTS HE HAS 16.5 [employer] HRS WEEKLY AND THEY ASSIST W/COOKING/CLEANING AND ASSIST PT IN AND OUT OF TUB. PT OPEN TO VNA SERVICES IF NEEDED. PT VERIFIES PCP SRINIVAS MAGDALENO, HCP IS BROTHER JANE LEDEZMA [phone] AND REPORTS HE HAS A COPY AT HOME, PT FULLY COVID VACCINATED. D/C PLAN: HOME W/RESUMP OF [employer] AND FRIEND FOR TRANSPORT.
--- NOTE | 2022-05-15 10:39 | PM.EVENT ---
Event Note Date of Service: 05/15/22 Event Note: The patient was seen and evaluated this morning He reports improvement in left upper extremity numbness Denies weakness at this point Pending PT, OT Pending neurology evaluation Positive treponema screening, pending confirmatory test Time Spent With Patient Time: Total time managing care of this patient today ____ minutes.
[2022-05-15] MEDS: Tamsulosin HCL 0.4 MG CAPSULE PO (10:52)
[2022-05-15 11:22] LABS: Glucose, Whole Blood 191 mg/dL (60-115)
[2022-05-15] MEDS: Gabapentin 400 MG CAPSULE PO ×2 (11:44→20:06)
[2022-05-15] MEDS: Aspirin Enteric Coated 81 MG TABLET.DR PO (11:44)
--- NOTE | 2022-05-15 13:17 | MHC.SLORD ---
Addendum entered and electronically signed by Jaqueline Chen MA, CCC-FITTER/WELDER 05/15/22 13:22: D.S. Original Note: Speech Language Pathology Order Status: Pt passed RN swallow screen, no nursing or pt concerns for swallow. Per MD, swallow evaluation not needed and is to be cancelled.
[2022-05-15 15:45] VITALS: BP 142/76; PULSE 100; RESP 18; TEMP 36.8; O2SAT 94
--- NOTE | 2022-05-15 16:16 | P.CNNE_ITS ---
History of Present Illness Data of Consult Service Date: 05/15/22 Primary Care Provider: Hanna Kimball MD [facility] Reason for consult: Generalized weakness. Old stroke This is a 57-year-old male with h/o hypertension, hyperlipidemia, diabetes, CAD, AFib on Eliquis, CVA with mild residual left-sided weakness, presented to the hospital with a chief complaint of generalized weakness.? Patient is a poor historian.?He has mild chronic left sided residual weakness, but is fairly independent at home.?Over the past couple days he has been having increased weakness of the left side and some left hand numbness.? ? Denies any falls or trauma.? Denies any neck pain.?Also reports lower chest/upper abdominal discomfort.? Associated mild nausea.Now feels back to normal? Review of Systems Review of Systems: Constitutional : No Weight loss, No Fever, No Chills, No Fatigue, No Malaise ENT/Mouth : No sore throat, No Rhinorrhea Eyes: No Eye Pain, No Swelling, No Redness Cardiovascular : No Chest Pain, No SOB, No Dyspnea on Exertion, No Orthopnea, No Edema, No Palpitations Respiratory : No Cough, No Sputum, No Wheezing Gastrointestinal : No Nausea, No Vomiting, No Diarrhea, No Constipation, No abdominal Pain, No Hematochezia, No Melena Genitourinary : No Dysuria, No Urinary Frequency, No Hematuria, Musculoskeletal : No joint pain, No Myalgias, No Joint Swelling Skin : No Skin Lesions, No rash Neuro : + Weakness, No Numbness, No Dizziness, No Headache Psych : No Anxiety/Panic, No Depression All other systems reviewed and are negative Yes all other systems are reviewed and are negative [facility] Past Medical History Medical History Adhesive capsulitis of left shoulder Anal fistula Arthritis Asthma Atrial flutter CAD (coronary artery disease) Cellulitis Depression Diabetes GERD (gastroesophageal reflux disease) Gout History of panic attacks Hx of myocardial infarction Hypertension Low back pain Migraines Perianal abscess Scoliosis Seizures Tubular adenoma Family History Family History Father No problems noted. Mother History of stomach cancer History of liver cancer Brother No problems noted. Surgical History Surgical History H/O colonoscopy History of angioplasty History of appendectomy History of esophagogastroduodenoscopy (EGD) History of incision and drainage (~10/19/21) History of open heart surgery History of sinus surgery History of umbilical hernia repair Social History 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 direct care counselor to a significant other at home: Yes (children) Do you presently have visiting nurse or other home services: No Alcohol intake: never Patient Tobacco Use Status: Never used Tobacco Use of substances other than those prescribed or required for medical reasons: No Have you been hit, kicked, punched, or otherwise hurt by someone within the past year? If so, by whom?: No Is there a partner from a previous relationship who is making you feel unsafe now?: No Are you made to feel afraid or neglected: No Spiritual Healthcare Practices: judaism Advance Directives: Yes Advance Directives Information Provided: Yes Advance Directives on File: No Advance Directives Date on File: 05/15/22 Do you have thoughts of harming others: None Do you have a plan to hurt others: No Plan Recently lost weight without trying: Unsure service: No Current occupational status: disabled Meds Allergies Allergy/AdvReac Type Severity Reaction Status Date / Time Iodinated Contrast Media Allergy Intermediate Difficulty Verified 05/08/22 11:14 [IV CONTRAST] Breathing Penicillins Allergy Mild RASH Verified 05/08/22 11:14 Sulfa (Sulfonamide Allergy Mild RASH Verified 05/08/22 11:14 Antibiotics) codeine AdvReac Mild STOMACH Verified 05/08/22 11:14 UPSET Docusate Calcium Allergy Mild rash Uncoded 05/08/22 11:14 Active Medications: Current Medications Acetaminophen (Acetaminophen 325 Mg Tablet) 650 mg PO Q6H PRN PRN Reason: Pain, Mild (Pain Scale 1-3) Amlodipine Besylate (Amlodipine Besylate 10 Mg Tablet) 10 mg PO DAILY [facility]; Protocol Last Admin: 05/15/22 09:38 Dose: 10 mg Apixaban (Apixaban 5 Mg Tablet) 5 mg PO BID [facility] Last Admin: 05/15/22 08:31 Dose: 5 mg Aspirin (Aspirin Enteric Coated 81 Mg Tablet.) 81 mg PO DAILY [facility] Last Admin: 05/15/22 11:44 Dose: 81 mg Atorvastatin Calcium (Atorvastatin Calcium 80 Mg Tablet) 80 mg PO BEDTIME [facility] Colchicine (Colchicine 0.6 Mg Tablet) 0.6 mg PO DAILY [facility] Docusate Sodium (Docusate Sodium 100 Mg Capsule) 200 mg PO BEDTIME [facility] Famotidine (Famotidine 20 Mg Tablet) 20 mg PO BID [facility] Last Admin: 05/15/22 09:38 Dose: 20 mg Fenofibrate (Fenofibrate 160 Mg Tablet) 160 mg PO DAILY [facility] Last Admin: 05/15/22 09:38 Dose: 160 mg Fluticasone Propionate (Fluticasone Propionate 100 Mcg Blst.W.Dev) 2 puff INHALE RBID [facility] Gabapentin (Gabapentin 400 Mg Capsule) 400 mg PO BID [facility] Last Admin: 05/15/22 11:44 Dose: 400 mg Glipizide (Glipizide 10 Mg Tablet) 10 mg PO DAILY [facility] Last Admin: 05/15/22 09:44 Dose: 10 mg Glucose (Glucose Gel 15 Gm Gel..Gram.) 15 gm PO Q15M PRN; Protocol PRN Reason: per Hypoglycemia Standing Ord. Dextrose (D10) 250 mls @ 750 mls/hr IV Q15M PRN; Protocol PRN Reason: per Hypoglycemia Standing Ord. Insulin Human Lispro (Insulin Lispro 100 Unit/Ml 3 Ml Vial) 0 unit SUBCUT QIDACHS [facility]; Protocol Last Admin: 05/15/22 12:17 Dose: 2 unit Losartan Potassium (Losartan Potassium 50 Mg Tablet) 50 mg PO DAILY [facility]; Protocol Last Admin: 05/15/22 11:45 Dose: 50 mg Melatonin (Melatonin 3 Mg Tablet) 6 mg PO BEDTIME PRN PRN Reason: Insomnia Metformin HCl (Metformin Hcl 500 Mg Tablet) 500 mg PO BID [facility] Last Admin: 05/15/22 09:38 Dose: 500 mg Metoprolol Tartrate (Metoprolol Tartrate 25 Mg Tablet) 75 mg PO BID [facility]; Protocol Last Admin: 05/15/22 09:43 Dose: 75 mg Omeprazole (Omeprazole 40 Mg Capsule.Dr) 40 mg PO DAILY@0630 [facility] Last Admin: 05/15/22 09:37 Dose: 40 mg Senna (Sennosides 8.6 Mg Tablet) 17.2 mg PO BEDTIME PRN PRN Reason: Constipation Sodium Chloride (0.9 % Sodium Chloride Flush 3 Ml Syringe) 3 ml IVFLUSH QSHIFT [facility] Last Admin: 05/15/22 08:55 Dose: 3 ml Tamsulosin HCl (Tamsulosin Hcl 0.4 Mg Capsule) 0.4 mg PO DAILY [facility] Last Admin: 05/15/22 10:52 Dose: 0.4 mg Vitamin D (Cholecalciferol (Vitamin D3) 25 Mcg Tablet) 50 mcg PO DAILY [facility] Last Admin: 05/15/22 10:52 Dose: 50 mcg Home Medications Medication Instructions Recorded Confirmed Last Taken Type amlodipine 10 mg tablet 10 mg PO DAILY 02/17/20 05/15/22 09/21/21 History chlorthalidone 50 mg tablet 50 mg PO DAILY 02/17/20 05/15/22 Unknown History fenofibrate 160 mg tablet 160 mg PO DAILY 02/17/20 05/15/22 Unknown History metformin 500 mg tablet 500 mg PO BID 02/17/20 05/15/22 Unknown History niacin 500 mg tablet,extended 500 mg PO BEDTIME cholesterol 10/25/20 05/15/22 Unknown History release 24 hr cholecalciferol (vitamin D3) 50 50 mcg PO QAM 01/29/21 05/15/22 Unknown History mcg (2,000 unit) capsule loratadine 10 mg tablet 10 mg PO DAILY 01/29/21 05/15/22 09/21/21 History losartan 50 mg tablet 50 mg PO QAM 08/15/21 05/15/22 Unknown History atorvastatin 80 mg tablet 1 tab PO BEDTIME 08/27/21 05/15/22 Unknown History fluticasone propionate 110 2 puff inhalation BID 08/27/21 05/15/22 Unknown History mcg/actuation HFA aerosol inhaler (Flovent HFA) dulaglutide 3 mg/0.5 mL 3 mg subcut QWEEK 12/19/21 05/15/22 Unknown History subcutaneous pen injector ([facility]) fluticasone propionate 50 2 spray intranasal DAILY PRN 12/19/21 05/15/22 Unknown History mcg/actuation nasal Allergic Symptoms spray,suspension colchicine 0.6 mg tablet 1 tab PO DAILY 05/15/22 05/15/22 Unknown History gabapentin 400 mg capsule 1 cap PO BID 05/15/22 05/15/22 Unknown History glipizide 10 mg tablet, extended 1 tab PO DAILY 05/15/22 05/15/22 Unknown History release 24 hr metoprolol tartrate 50 mg tablet 1.5 tab PO BID 05/15/22 05/15/22 Unknown History Physical Exam 2 Vital Signs: Vital Signs: Last Vital Signs Temp 98.3 F 05/15/22 15:45 Pulse 100 05/15/22 15:45 Resp 18 05/15/22 15:45 BP 142/76 H 05/15/22 15:45 Pulse Ox 94 05/15/22 15:45 O2 Del Method 05/15/22 15:45 BMI result Body Mass Index 38.0 Neuro: Other: Normal neurological examination with no focal weakness. Reduced reflexes in lower extremities probably related to diabetes. Gait is normal. No drift of the uupper extremities. Results Labs 05/14/22 21:00 05/15/22 05:52 Labs: Short CBC 05/14/22 Range/Units 21:00 WBC 10.7 (4.8-10.8) X10*3/uL Hgb 13.9 L (14.0-18.0) g/dl Hct 42.4 (42.0-52.0) % Plt Count 367 (160-400) X10*3/uL BMP 05/14/22 05/15/22 21:00 05:52 Sodium 141 140 Potassium 4.3 4.6 Chloride 107 107 Carbon Dioxide 21 L 19 L BUN 19 H 20 H Creatinine 1.16 1.06 Calcium 9.6 10.1 Cardiac Enzymes 05/14/22 Range/Units 21:00 Total Creatine Kinase 162 (38-174) U/L Liver Function 05/15/22 Range/Units 05:52 Total Bilirubin 0.5 (0.0-1.0) mg/dL AST 21 (5-37) U/L ALT 30 (0-40) U/L Alkaline Phosphatase 110 (39-117) U/L Albumin 4.3 (3.5-5.0) g/dL Urine 05/14/22 Range/Units 23:35 Urine Color Yellow Urine Appearance Clear Urine pH 5.0 (5.0-9.0) Ur Specific [place] >= 1.030 H (1.005-1.025) Urine Protein Negative (Neg-Trace) mg/dL Urine Glucose (UA) Negative (Negative) mg/dL Assessment and Plan (1) Chest pain: Status: Acute (2) Numbness on left side: Status: Acute No evidence of new stroke. Normal neurological examination. CT and CTA are unremarkable.Recommendation continue current medications. Plan 57-year-old male with a past medical history of hypertension, hyperlipidemia, diabetes, CAD, AFib on Eliquis, history of CVA with mild residual left-sided w martha is alone presented to the hospital today with a chief complaint of generalized weakness/left-sided weakness/left-sided numbness. Left-sided weakness/left-sided numbness: Patient reports he had mild left-sided weakness from before. But left-sided numbness is new. More so on the left hand. Present for the past few days. CT head showed no acute findings Unable to correlate the patient's baseline neurological status/mental status. No active signs of infection Plan -neurology consult -will obtain TSH, folate, B12, RPR -fall precautions -PT/OTeventuality -speech and swallow eval -neurochecks HTN/HLD: Continue home medications. Hold home losartan, amlodipine for now given blood pressure on the normal side. History of AFib: Continue home Eliquis, metoprolol. Rate controlled History of diabetes: Hold home oral hypoglycemic agents. Insulin sliding scale DVT prophylaxis: Patient on Eliquis Code status: Full code Time Spent With Patient Time: Total time managing care of this patient today ____ minutes. Procedures Date of Service Date of Service: 05/15/22
[2022-05-15 16:47] LABS: Glucose, Whole Blood 206 mg/dL (60-115)
[2022-05-15 19:52] VITALS: BP 131/71; PULSE 100; RESP 18; TEMP 36.7; O2SAT 94
[2022-05-15] MEDS: Atorvastatin Calcium 80 MG TABLET PO (20:06)
[2022-05-15] MEDS: Docusate Sodium 100 MG CAPSULE 200 MG PO (20:06)
[2022-05-15 21:15] LABS: Glucose, Whole Blood 174 mg/dL (60-115)
[2022-05-16 04:00] VITALS: BP 122/69; PULSE 80; RESP 18; TEMP 36.3; O2SAT 93
[2022-05-16] MEDS: Omeprazole 40 MG CAPSULE.DR PO (05:29)
[2022-05-16 08:00] VITALS: BP 139/74; PULSE 78; RESP 18; TEMP 36.9; O2SAT 93
[2022-05-16 08:16] LABS: Glucose, Whole Blood 156 mg/dL (60-115)
[2022-05-16] MEDS: amLODIPine Besylate 10 MG TABLET PO (08:33)
[2022-05-16] MEDS: Gabapentin 400 MG CAPSULE PO (08:33)
[2022-05-16] MEDS: Metoprolol Tartrate 25 MG TABLET 75 MG PO (08:33)
[2022-05-16] MEDS: Apixaban 5 MG TABLET PO (08:33)
[2022-05-16] MEDS: Tamsulosin HCL 0.4 MG CAPSULE PO (08:34)
[2022-05-16] MEDS: Aspirin Enteric Coated 81 MG TABLET.DR PO (08:34)
[2022-05-16] MEDS: Famotidine 20 MG TABLET PO (08:34)
[2022-05-16] MEDS: Colchicine 0.6 MG TABLET PO (08:34)
[2022-05-16] MEDS: Fenofibrate 160 MG TABLET PO (08:34)
[2022-05-16] MEDS: Cholecalciferol (Vitamin D3) 25 MCG TABLET 50 MCG PO (08:34)
[2022-05-16] MEDS: metFORMIN HCl 500 MG TABLET PO (08:34)
[2022-05-16] MEDS: Losartan Potassium 50 MG TABLET PO (08:34)
[2022-05-16] MEDS: Insulin Lispro 100 UNIT/ML 3 ML VIAL SUBCUT (08:35)
[2022-05-16] MEDS: 0.9 % Sodium Chloride Flush 3 ML SYRINGE IVFLUSH (08:35)
[2022-05-16 11:17] LABS: Glucose, Whole Blood 141 mg/dL (60-115)
--- NOTE | 2022-05-16 14:26 | P.DS_ITS ---
DS: Providers Provider Date of Service: 05/16/22 Date of admission: 05/15/22 03:46 Primary care physician: Hanna Kimball MD Consults: 05/15/22 04:04 Consult to Neurology Routine Consulting Provider: [facility] Reason for consultation: left hand numbness; LEft side waekness; hx CVA DS: Diagnosis Discharge Diagnosis (1) Numbness on left side: Status: Acute (2) Syphilis: Status: Acute (3) Left-sided weakness: Status: Acute DS: Summary Hospital Course Hospital Course: Admission note HPI 57-year-old male with a past medical history of hypertension, hyperlipidemia, diabetes, CAD, AFib on Eliquis, history of CVA with mild residual left-sided weakness is alone presented to the hospital today with a chief complaint of generalized weakness.? Patient is a poor historian.? Patient mentioned that he had prior history of CVA, he has mild residual weakness.? Which has been chronic.? But to fairly independent at home.? Mentions that over the past couple days he has been having increased weakness in her left side also noted to have left hand numbness.? Mentioned that he had left hand numbness present for the past few days.? Denies any falls or trauma.? Denies any neck pain.? Patient also reports lower chest/upper abdominal discomfort.? Associated mild nausea.? Denies any diarrhea.? Patient lives alone, has a friend in the emergency contact list, not reachable; patient mentioned that he has not spoken to anybody in a mild; unknown patient's baseline mental status/exam status.? Patient denies any fever chills cough.? Denies any sputum production.? Denies any urinary symptoms.? Per ER team, patient noted to have slightly decreased at stent on the left side compared to the right side; also patient does report decrease sensation to the soft touch on the left upper and left lower extremities-which is new; EKG was nonischemic, troponin were negative; urinalysis was negative for any acute infection; chest x-ray showed no pneumonia.? Admitted to the hospital for further management. Hospital course The patient was admitted for evaluation of left upper extremity numbness and tingling. Flu reported weakness on physical exam. Brain images including CT scan and CTA were both negative for any acute findings. His symptoms in the left upper extremity resolved by next morning. He was evaluated by neurologist who did not feel there is any evidence of stroke and recommended to continue was Eliquis and addition of aspirin with high-dose statin. He was tested for syphilis as part of evaluation of tingling and the result came back positive. Discussed with infectious disease specialist given the patient history of allergic reaction to penicillin who recommended 1 month treatment with doxycycline with a plan to follow-up with Dr. Roberto rodriguez in the office after that. Started on tamsulosin for reported his a 10 cm difficulty to pass urine with improvement. Continue doxycycline as prescribed Start aspirin Start tamsulosin To follow-up with Dr. Cain from Infectious Disease in 1 month, please call for appointment To follow-up with PCP within the next month. Time Spent with Patient Time attestation: Total time managing care of this patient today ____ minutes. Discharge coordination time: Less than 30 minutes Quality: Safe Use of Opioids Does Pt have an Active Cancer Diagnosis on the Problem List?: No Quality: Stroke Does the patient have a stroke diagnosis?: No Physical Exam Vital Signs: Vital Signs: Last Vital Signs Temp 98.5 F 05/16/22 08:00 Pulse 78 05/16/22 08:00 Resp 18 05/16/22 08:00 BP 139/74 05/16/22 08:00 Pulse Ox 93 05/16/22 08:00 O2 Del Method 05/16/22 08:00 BMI result Body Mass Index 38.0 Const: Other: Constitutional : Awake, interactive, not in distress Neck : Normal inspection, Supple Cardiovascular : RRR, no JVP, no lower extremity edema Respiratory : good bilateral air entry, no crackles, wheezes or rhonchi Gastrointestinal: soft, lax, Normal bowel sounds, Non tender Skin : Warm, Dry Neurological : Alert & oriented x3, No focal deficit , normal gait, CN 2-12 within normal Neuro: Other: Normal neurological examination with no focal weakness. Reduced reflexes in lower extremities probably related to diabetes. Gait is normal. No drift of the uupper extremities. DS: Data Data Completed and Pending Labs on day of discharge: Laboratory Results - last 24 hr 05/15/22 05/15/22 05/16/22 16:30 21:06 08:10 POC Glucose 206 H 174 H 156 H 05/16/22 11:13 POC Glucose [address] scan - head: Radiologist's impression: ITS Impressions Head CT 05/14/22 21:09 IMPRESSION: No acute intracranial pathology. This critical result was discussed with GENERAL OPERATIONS AGENT Delphine Kim at 2118 hours on 05/14/2022. It was ascertained that the content and urgency of the report was understood at the time of direct communication. Head/Neck CTA 05/14/22 21:17 IMPRESSION: 1. No evidence of acute intracranial hemorrhage or edematous territorial infarction. Mild underlying microangiopathy. 2. CTA of the head and neck without proximal occlusion or flow-limiting stenosis. Chest X-Ray 05/14/22 22:53 IMPRESSION: Cardiomegaly with mild pulmonary vascular congestion. Discharge Plan Discharge Anticipated Discharge Date/Time: 05/16/22 12:36 Patient Disposition: Home, Self-Care Discharge Diagnosis: Left-sided numbness Pending final syphilis test Referrals: Hanna Wheat MD [Primary Care Provider] - 1 Week Discharge Medications: New aspirin 81 mg Tablet,Delayed Release (Dr/Ec) 81 mg PO DAILY Qty: 30 0RF tamsulosin 0.4 mg Capsule 0.4 mg PO DAILY Qty: 30 0RF doxycycline monohydrate 100 mg capsule 100 mg PO BID Qty: 60 0RF Continued Eliquis 5 mg tablet 5 mg PO BID 90 Days Qty: 180 3RF famotidine 20 mg tablet 20 mg PO BID Qty: 60 3RF atorvastatin 80 mg tablet 1 tab PO BEDTIME fluticasone propionate [Flovent HFA] 110 mcg/actuation Hfa Aerosol Inhaler 2 puff INHALATION BID metoprolol tartrate 50 mg tablet 1.5 tab PO BID glipizide 10 mg tablet extended release 24hr 1 tab PO DAILY gabapentin 400 mg capsule 1 cap PO BID colchicine 0.6 mg tablet 1 tab PO DAILY niacin 500 mg tablet extended release 24 hr 500 mg PO BEDTIME amlodipine 10 mg tablet 10 mg PO DAILY chlorthalidone 50 mg tablet 50 mg PO DAILY fenofibrate 160 mg tablet 160 mg PO DAILY metformin 500 mg tablet 500 mg PO BID cholecalciferol (vitamin D3) 50 mcg (2,000 unit) capsule 50 mcg PO QAM loratadine 10 mg tablet 10 mg PO DAILY losartan 50 mg tablet 50 mg PO QAM Creon 24,000-76,000 -120,000 unit capsule,delayed release(DR/EC) 1 cap PO QID Qty: 120 2RF Rx Instructions: administer with meals and/or snacks Benefiber Clear SF (dextrin) 3 gram/3.5 gram powder in packet 1 packet PO DAILY Qty: 28 5RF Rx Instructions: mix into at least 4 oz water or juice before administering docusate sodium 100 mg capsule 200 mg PO BEDTIME Qty: 180 3RF Rx Instructions: irina dos capsula cada noche omeprazole 40 mg capsule,delayed release(DR/EC) 40 mg PO DAILY Qty: 30 3RF Trulicity 3 mg/0.5 mL pen injector 3 mg subcut QWEEK fluticasone propionate 50 mcg/actuation spray,suspension 2 spray intranasal DAILY PRN (Reason: Allergic Symptoms) Discharge Orders: Discharge Order (Routine); Ordered 05/16/22 Ordered By: Katja Wheeler Diet: Advance to usual diet Activity on Discharge: As tolerated Stand Alone Forms: Patient Portal Discharge page Care Plan Goals: Read below Health Concerns: Read below Plan of Treatment: Read below Assessment: You were admitted to the hospital for evaluation of left upper extremity numbness. Images for your brain were negative for any acute findings as you were evaluated by neurologist. Blood tests came back positive for Syphilis. You will need oral antibiotic of doxycycline for 1 month and to follow-up with Infectious Disease afterward. Continue doxycycline as prescribed Start aspirin Start tamsulosin To follow-up with Dr. Cain from Infectious Disease in 1 month, please call for appointment To follow-up with PCP within the next month.
--- NOTE | 2022-05-16 14:30 | MHC.CM.PN ---
PT MEDICALLY CLEARED FOR D/C HOME NO NEW SERVICES AND RESUMP OF RELATIONS SPECIALIST HRS, PT TO ARRANGE TRANSPORT.
[2022-05-22 08:59] LABS: RPR Quantitative Non-Reactive (Nonreactive); T.Pallidum Particle Agg Test Non-Reactive (Nonreactive)
== END 2022-05-16 16:16 | disposition home or self-care (01) | DRG 724 ==
LOC: HO.ED 05-15 01:28 → HO.EDOVER 05-15 03:58 → HO.S3 05-15 06:40
PROVIDERS: Physician Assistant; Admitting Provider Hospitalist; Emergency Provider Internal Medicine; PCP Internal Medicine; Visit Provider Student in an Organized Health Care Education/Training Program
DX: A53.9 Syphilis, unspecified (principal); I69.354 Hemiplegia and hemiparesis following cerebral infarction affecting left non-dominant side; R20.0 Anesthesia of skin; I25.10 Atherosclerotic heart disease of native coronary artery without angina pectoris; I10 Essential (primary) hypertension; E78.5 Hyperlipidemia, unspecified; I25.2 Old myocardial infarction; Z20.822 Contact with and (suspected) exposure to COVID-19; Z95.1 Presence of aortocoronary bypass graft; Z91.041 Radiographic dye allergy status; Z88.0 Allergy status to penicillin; Z88.2 Allergy status to sulfonamides; Z88.5 Allergy status to narcotic agent; Z79.01 Long term (current) use of anticoagulants; Z79.51 Long term (current) use of inhaled steroids; Z79.84 Long term (current) use of oral hypoglycemic drugs; Z79.899 Other long term (current) drug therapy
CPT/HCPCS: 36415; 70450; 70496; 70498; 71045; 80048; 80053; 80307; 81003; 82140; 82550; 82607; 82746; 82803; 82947; 83880; 84443; 84484; 85025; 85610; 85730; 86592; 86780; 87635; 93005; 93306; 99221; 99285; J1200; J2930; Q9957

== ENCOUNTER 2022-05-17 08:19 | Outpatient (REF) | payer MEDICAID, SELFPAY ==
[2022-05-28 13:09] LABS: Pancreatic Elastase-1 >500 mcg/g
== END 2022-05-17 08:20 | disposition home or self-care (01) ==
LOC: HO.LNP 08:19
PROVIDERS: Visit Provider Nurse Practitioner Family
DX: R10.9 Unspecified abdominal pain (principal)
CPT/HCPCS: 82656

== ENCOUNTER → 2022-05-30 09:22 | Outpatient (BNVA) | payer MEDICAID, SELFPAY | PROVIDERS: PCP Internal Medicine; Visit Provider Surgery | DX: K60.3 Anal fistula (principal) | CPT/HCPCS: 99212 ==

== ENCOUNTER → 2022-06-10 10:47 | Outpatient (BNVA) | payer MEDICAID, SELFPAY | PROVIDERS: PCP Internal Medicine; Visit Provider Nurse Practitioner Family | DX: K21.9 Gastro-esophageal reflux disease without esophagitis (principal); K58.1 Irritable bowel syndrome with constipation; R10.32 Left lower quadrant pain | CPT/HCPCS: 99212 ==

== ENCOUNTER → 2022-07-02 13:19 | Outpatient (BNVA) | payer MEDICAID, SELFPAY | PROVIDERS: PCP Internal Medicine; Referring Provider Internal Medicine; Visit Provider Nurse Practitioner Family | DX: I25.10 Atherosclerotic heart disease of native coronary artery without angina pectoris (principal); G45.9 Transient cerebral ischemic attack, unspecified; I48.92 Unspecified atrial flutter; I10 Essential (primary) hypertension; Z98.890 Other specified postprocedural states | CPT/HCPCS: 99212 ==

== ENCOUNTER → 2022-07-22 09:34 | Outpatient (BNVA) | payer MEDICAID, SELFPAY | PROVIDERS: PCP Internal Medicine; Visit Provider Surgery | DX: Z48.815 Encounter for surgical aftercare following surgery on the digestive system (principal); K60.3 Anal fistula | CPT/HCPCS: 99212 ==

== ENCOUNTER 2022-08-29 09:29 | Outpatient (REF) | payer MEDICAID, SELFPAY ==
--- NOTE | ~2022-08-29 | XR_ITS ---
EXAMINATION: BILATERAL HANDS CLINICAL INFORMATION: Bilateral hand pain x5 days COMPARISON: Right wrist 02/08/2011 TECHNIQUE: 3 views each hand FINDINGS: Right: Degenerative changes are present at the radiocarpal joint. No other significant abnormality is seen. No fractures or dislocations. Left: Surgical clips are noted lateral to the distal radius. A radiopaque foreign body is noted in the fourth digit inferomedial to the distal portion of the middle phalanx. Some minimal degenerative changes are present at the radiocarpal joint. No other significant abnormality seen. No fractures or dislocations. XR/XR hand LT min 3V IMPRESSION: 1. Degenerative changes at the radiocarpal joints bilaterally. 2. Radiopaque foreign body left fourth digit as described above.
--- NOTE | ~2022-08-29 | XR_ITS ---
EXAMINATION: BILATERAL HANDS CLINICAL INFORMATION: Bilateral hand pain x5 days COMPARISON: Right wrist 02/08/2011 TECHNIQUE: 3 views each hand FINDINGS: Right: Degenerative changes are present at the radiocarpal joint. No other significant abnormality is seen. No fractures or dislocations. Left: Surgical clips are noted lateral to the distal radius. A radiopaque foreign body is noted in the fourth digit inferomedial to the distal portion of the middle phalanx. Some minimal degenerative changes are present at the radiocarpal joint. No other significant abnormality seen. No fractures or dislocations. XR/XR hand RT min 3V IMPRESSION: 1. Degenerative changes at the radiocarpal joints bilaterally. 2. Radiopaque foreign body left fourth digit as described above.
== END 2022-08-29 09:30 | disposition home or self-care (01) ==
LOC: HO.HHCX 09:29
PROVIDERS: Visit Provider Family Medicine
DX: M79.641 Pain in right hand (principal); M79.642 Pain in left hand
CPT/HCPCS: 73130

== ENCOUNTER 2022-09-04 10:18 | Outpatient (AMB) | payer MEDICAID, SELFPAY ==
--- NOTE | 2022-09-04 10:45 | A.OFFVIS_ITS ---
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 Discussed with patient the importance of avoiding dietary triggers and late night snacking. Staying upright for minimum 3 hours after meals discussed with patient. IBS (irritable bowel syndrome) Patient reports that he is moving his bowels better. Taking Benefiber every morning no longer has loose stools. Taking Colace and Senokot at bedtime and is emptying his bowels better. Patient denies abdominal bloating. He was started on Creon and taking that with meals. Patient states that he is tolerating well and no longer has abdominal bloating. Abdominal pain Left lower quadrant pain improved after patient started to move his bowels better. He can continue taking current bowel regimen. Patient was also encouraged to increase activity to promote better bowel motility. I will see patient in 3 months, sooner on as needed basis. Patient is agreeable to this plan and verbalizes understanding of instructions. He was given the opportunity to ask questions and all questions answered. ? Thank you for allowing to participate in his care TODAY'S VISIT Patient is here today for follow-up. Patient reports that he is having severe abdominal bloating, abdominal pain. Unable to move his bowels every day. Patient states that when he does move her bowels he does not feel like she empties them completely. Reports left upper quadrant discomfort. Denies melena, hematochezia, unintentional weight loss or ribbon like stools. Patient denies any dyspepsia, dysphagia or odynophagia. Patient reports nausea without vomiting. [facility] Medical History Adhesive capsulitis of left shoulder Anal fistula Arthritis Asthma Atrial flutter CAD (coronary artery disease) Cellulitis Depression Diabetes GERD (gastroesophageal reflux disease) Gout History of panic attacks Hx of myocardial infarction Hypertension Low back pain Migraines Perianal abscess Scoliosis Seizures Tubular adenoma Surgical History H/O colonoscopy History of angioplasty History of appendectomy History of esophagogastroduodenoscopy (EGD) History of incision and drainage (~10/19/21) History of open heart surgery History of sinus surgery History of umbilical hernia repair Family History Father No problems noted. Mother History of stomach cancer History of liver cancer Brother No problems noted. 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 significant other at home: Yes (children) Do you presently have visiting nurse or other home services: No Alcohol intake: never Patient Tobacco Use Status: Never used Tobacco Advance Directives Date on File: 05/15/22 service: No Current occupational status: disabled Review of Systems Const Denies weight gain and Denies weight loss ENT Reports no additional complaints, Denies dysphagia and Denies odynophagia Card Reports no additional complaints Resp Reports no additional complaints GI Reports abdominal pain (RLQ LLQ), Denies belching, Denies melena, Denies bloating, Denies change in bowel habits, Denies dysphagia, Denies excessive flatus, Reports dyspepsia, Reports heartburn, Denies diarrhea, Denies loose stools, Reports nausea, Denies odynophagia and Reports vomiting Reports no additional complaints Musc Reports no additional complaints Neuro Reports no additional complaints Psych Reports no additional complaints Endo Reports no additional complaints Physical Exam Vital Signs: Last Vital Signs Pulse 79 09/04/22 10:46 BP 127/74 09/04/22 10:46 BMI result Body Mass Index 36.7 Const General: healthy appearing, no acute distress and well developed Nutritional Appearance: obese Orientation/consciousness: patient oriented x3 HEENT Head: Yes normal to inspection, Yes normocephalic and Yes atraumatic Face and sinus: Yes normal facial exam Mouth: Normal oral and palatal mucosa present Throat: Yes posterior oropharynx normal, Yes tonsils normal and Yes uvula midline Eyes General: appearance normal, both eyes and all related structures Neck Neck: Yes normal visual inspection, Yes full ROM and Yes trachea midline Thyroid: Thyroid normal Resp Effort & Inspection: normal respiratory effort, able to speak in complete sentences, no tracheal deviation and symmetric chest movement Auscultation: clear to auscultation bilaterally Cardio Rate: regular rate Heart sounds: S1 normal heart sound present and S2 normal heart sound present GI Inspection: Yes normal to inspection, No distended and Yes obesity Palpation (GI): Soft to palpation, not firm, nontender and No hepatosplenomegaly present Auscultation: normal bowel sounds General: Yes no CVA tenderness Back/Spine/Pelvis Back: no CVA tenderness Skin General skin exam: elasticity normal, turgor normal and dry skin Neuro General: patient oriented x3 Psych Appearance: grossly normal Mental Status: mental status grossly normal Speech and movement: Normal speech and movement present Affect: normal affect Assessment & Plan Assessment & Plan (1) RLQ abdominal pain: Code(s): R10.31 - Right lower quadrant pain Plan: Right lower quadrant abdominal discomfort. Exam negative for any tenderness. Will send patient for CT scan. Will send patient for lab work. History of appendectomy. (2) LLQ abdominal pain: Code(s): R10.32 - Left lower quadrant pain Plan: Left lower quadrant pain. Patient will need to move his bowels better. Will send for CT scan to rule out diverticulitis, colitis (3) Nausea & vomiting: Code(s): R11.2 - Nausea with vomiting, unspecified Qualifiers: Vomiting type: unspecified Qualified Code(s): R11.2 - Nausea with vomiting, unspecified Plan: Continue avoiding dietary triggers. Patient can start Nexium daily and sucralfate at bedtime. Patient will get script for Zofran. (4) Postprandial abdominal bloating: Code(s): R14.0 - Abdominal distension (gaseous) Plan: Continue Creon. Patient was instructed to making sure that he moves his bowels daily. He can use MiraLax and senna if needed. I will see him in 2 weeks, sooner on as needed basis. Patient is agreeable to this plan and verbalizes understanding of instructions. He was given the opportunity to ask questions and all questions answered. Thank you for allowing me to participate in his care Orders: Orders US abdomen comp w elastography 09/04/22 R79.89 - Other specified abnormal findings of blood chemistry [facility]-YANIQUE Lipase 09/04/22 R10.9 - Unspecified abdominal pain [facility]-BC Complete Blood Count no Diff 09/04/22 K21.9 - Gastro-esophageal reflux disease without esophagitis D[facility] Comprehensive Met. Panel 09/04/22 K21.9 - Gastro-esophageal reflux disease without esophagitis [facility]IL [facility] H pylori Ag Stool 09/04/22 K21.9 - Gastro-esophageal reflux disease without esophagitis DARNELL House CT abdomen pelvis wo IV con 09/04/22 R10.31 - Right lower quadrant pain, R10.32 - Left lower quadrant pain, R11.2 - Nausea with vomiting, unspecified Onelia RAYA MontalvoP-BC Medications: New esomeprazole magnesium (Nexium) 40 mg PO DAILY 30 caps 5RF K21.9 - Gastro- esophageal reflux disease without esophagitis RAYA HouseP-BC sucralfate 1 g PO BEDTIME 30 tabs 4RF R19.7 - Diarrhea, unspecified Onelia RAYA MontalvoP-BC ondansetron 4 mg PO Q8H PRN 20 tabs 0RF nausea and vomiting R11.0 - Nausea Onelia RAYA MontalvoP-BC Refilled [id number] 24,000-76,000 -120,000 unit (Creon) administer with meals and/or snacks 1 cap PO QID 120 caps 2RF K58.9 - Irritable bowel syndrome without diarrhea Onelia Lockhart, RESTAURANT AREA DIRECTOR-BC Discontinued famotidine Discontinued Reason: Doctor's Order 20 mg PO BID 60 tabs 3RF omeprazole Discontinued Reason: Doctor's Order 40 mg PO DAILY 30 caps 3RF On Hold chlorthalidone Hold Comment: follow up with pcp 50 mg PO DAILY@1200 TRESA Velásquez Coding Level of Care Code Est Pt Level 4 (56465) Diagnoses RLQ abdominal pain R10.31 LLQ abdominal pain R10.32 Nausea & vomiting R11.2 Vomiting type: unspecified Postprandial abdominal bloating R14.0 Time Spent (min) 35 Comment 20 minutes spent with patient and additional 15 minutes spent reviewing his records
[2022-09-04 10:46] VITALS: BP 127/74; PULSE 79; BMI 36.7
== END 2022-09-04 12:08 | disposition home or self-care (01) ==
PROVIDERS: PCP Internal Medicine; Visit Provider Nurse Practitioner Family
DX: R10.31 Right lower quadrant pain (principal); R10.32 Left lower quadrant pain; R11.2 Nausea with vomiting, unspecified; R14.0 Abdominal distension (gaseous)
CPT/HCPCS: 99213; 99214

== ENCOUNTER 2022-09-04 10:18 | Outpatient (REF) | payer MEDICAID, SELFPAY ==
[2022-09-04 12:01] LABS: Hematocrit 46.1 % (42.0-52.0); Hemoglobin 15.2 g/dl (14.0-18.0); Mean Corpuscular Hemoglobin 27.5 pg (27.0-33.0); Mean Corpuscular Volume 83.4 fL (80.0-98.0); Mean Platelet Volume 9.6 fL (9.4-12.4); Platelet Count 464 X10*3/uL (160-400); Red Blood Count 5.53 X10*6/uL (4.60-5.80); Red Cell Distribution Width 13.5 % (11.0-16.0); White Blood Count 10.1 X10*3/uL (4.8-10.8)
[2022-09-04 13:33] LABS: Alanine Aminotransferase 24 U/L (0-40); Albumin Level 4.5 g/dL (3.5-5.0); Alkaline Phosphatase 119 U/L (39-117); Anion Gap 15 (12-20); Aspartate Amino Transferase 18 U/L (5-37); Bilirubin Total 0.7 mg/dL (0.0-1.0); Blood Urea Nitrogen 20 mg/dL (9-16); Calcium 10.8 mg/dL (8.4-10.2); Carbon Dioxide 24 mmol/L (22-29); Chloride 102 mmol/L (96-108); Estimated Glomerular Filt Rate > 60; Glucose Random 136 mg/dL (60-115); Lipase 47 U/L (8-78); Potassium 3.4 mmol/L (3.3-5.1); Sodium 138 mmol/L (135-145); Total Protein 8.3 g/dL (6.5-8.0)
== END 2022-09-04 10:19 | disposition home or self-care (01) ==
LOC: CF 10:18
PROVIDERS: PCP Internal Medicine; Visit Provider Nurse Practitioner Family
DX: K21.9 Gastro-esophageal reflux disease without esophagitis (principal); R10.9 Unspecified abdominal pain; K58.9 Irritable bowel syndrome, unspecified
CPT/HCPCS: 80053; 83690; 85027; 99212; 99214

== ENCOUNTER 2022-09-04 21:00 | Observation (INO) | payer MEDICAID, SELFPAY ==
--- NOTE | ~2022-09-04 | CT_ITS ---
EXAMINATION: CT HEAD WITHOUT CONTRAST CLINICAL INFORMATION: Dizziness. Baseline left-sided weakness. COMPARISON: CTA head and neck from 05/14/2022. Brain MRI from 09/27/2017. TECHNIQUE: Contiguous axial imaging was performed from the skull base to vertex without intravenous administration of contrast. This CT examination was performed using dose optimization techniques as appropriate, variously including the following: *Automated exposure control. *Adjustment of mA and/or kV according to patient size (this includes techniques or standardized protocols for targeted exams where dose is matched to indication/reason for exam; i.e. extremities or head). *Use of iterative reconstruction technique. DLP: 842 mGy-cm FINDINGS: There is no evidence of acute intracranial hemorrhage or edematous territorial infarction. Britt-white matter differentiation is preserved. A few foci of hypoattenuation in the periventricular and deep white matter are consistent with mild microangiopathy. The ventricles are normal in morphology and size. No evidence for obstructive hydrocephalus. No abnormal mass effect or midline shift. No extra-axial fluid collections. No acute soft tissue or osseous abnormalities. Mild mucosal thickening of the paranasal sinuses. The mastoid air cells and middle ear cavities are clear. CT/CT head for stroke IMPRESSION: 1. No evidence of acute intracranial hemorrhage or edematous territorial infarction. 2. Mild underlying microangiopathy. This critical result was discussed with Dr Winslow at 21:20 on 09/04/2022 and it was ascertained that the content and urgency of the report was understood at the time of direct communication.
--- NOTE | ~2022-09-04 | XR_ITS ---
EXAMINATION: XR CHEST CLINICAL INFORMATION: Shortness of breath, right-sided rib pain. COMPARISON: 05/14/2022 chest radiograph. TECHNIQUE: Frontal view of the chest was obtained. FINDINGS: No significant abnormality is noted involving the heart, lungs, mediastinum, bony thorax or soft tissues. Multilevel sternotomy wires and fixation plates are noted in place. Atrial appendage clip in place as well. XR/XR chest 1V IMPRESSION: No acute cardiopulmonary process.
--- NOTE | 2022-09-04 21:06 | ECG_ITS ---
Test Reason : ?STROKE Blood Pressure : / mmHG Vent. Rate : 076 BPM Atrial Rate : 076 BPM P-R Int : 142 ms QRS Dur : 100 ms QT Int : 390 ms P-R-T Axes : 003 006 165 degrees QTc Int : 438 ms Normal sinus rhythm RSR' or QR pattern in V1 suggests right ventricular conduction delay T wave abnormality, consider lateral ischemia Abnormal ECG When compared with ECG of 14-MAY-2022 21:30, T wave inversion now evident in Anterior leads Referred By: Carne Winslow Electronically Signed By:Rajiv Jean
[2022-09-04 21:25] LABS: Prothrombin Time Whole Bld POC 13.2 sec (11.1-13.5); ~PT, ~INR - Anti Coag Clinic 1.1 (0.9-1.1)
[2022-09-04 21:26] LABS: Glucose, Whole Blood 154 mg/dL (60-115)
[2022-09-04 21:31] VITALS: BP 120/80; BP 129/65; PULSE 88; PULSE 98; RESP 20; TEMP 36.9; O2SAT 97; O2SAT 98; BMI 37.6
--- NOTE | 2022-09-04 21:37 | ED_ITS ---
HPI - Neuro Symptoms/Deficit General Chief Complaint: Stroke Stated Complaint: stroke Time Seen by Provider: 09/04/22 21:05 Source: patient, family and distillation operator Mode of arrival: EMS History of Present Illness HPI Narrative: 57-year-old male with history of prior stroke, history of a flutter and currently on aspirin and Eliquis with last dose of Eliquis this morning. Patient states he is allergic to IV contrast but on review of his previous history patient received CT angio of head and neck in May when he presented with the same symptoms. Related Data Home Medications Medication Instructions Recorded Confirmed amlodipine 10 mg tablet 10 mg PO DAILY 02/17/20 07/22/22 chlorthalidone 50 mg tablet 50 mg PO DAILY 02/17/20 07/22/22 fenofibrate 160 mg tablet 160 mg PO DAILY 02/17/20 07/22/22 metformin 500 mg tablet 500 mg PO BID 02/17/20 07/22/22 niacin 500 mg tablet,extended 500 mg PO BEDTIME cholesterol 10/25/20 07/22/22 release 24 hr cholecalciferol (vitamin D3) 50 50 mcg PO QAM 01/29/21 07/22/22 mcg (2,000 unit) capsule loratadine 10 mg tablet 10 mg PO DAILY 01/29/21 07/22/22 atorvastatin 80 mg tablet 1 tab PO BEDTIME 08/27/21 07/22/22 fluticasone propionate 110 2 puff inhalation BID 08/27/21 07/22/22 mcg/actuation HFA aerosol inhaler (Flovent HFA) dulaglutide 3 mg/0.5 mL 3 mg subcut QWEEK 12/19/21 07/22/22 subcutaneous pen injector (Trulicity) fluticasone propionate 50 2 spray intranasal DAILY PRN 12/19/21 07/22/22 mcg/actuation nasal Allergic Symptoms spray,suspension colchicine 0.6 mg tablet 1 tab PO DAILY 05/15/22 07/22/22 gabapentin 400 mg capsule 1 cap PO BID 05/15/22 07/22/22 glipizide 10 mg tablet, extended 1 tab PO DAILY 05/15/22 07/22/22 release 24 hr metoprolol tartrate 50 mg tablet 1.5 tab PO BID 05/15/22 07/22/22 losartan 100 mg tablet 100 mg PO QAM 07/02/22 07/22/22 losartan 50 mg tablet 100 mg PO QAM 07/02/22 07/22/22 nitroglycerin 0.4 mg sublingual 0 mg sublingual 07/02/22 07/22/22 tablet Previous Rx's Medication Instructions Recorded apixaban 5 mg tablet (Eliquis) 5 mg PO BID 90 days #180 tabs 11/14/21 docusate sodium 100 mg capsule 200 mg PO BEDTIME #180 caps 05/08/22 wheat dextrin 3 gram/3.5 gram oral 1 packet PO DAILY #28 ea 05/08/22 powder packet (Benefiber Clear Sugar Free(dextrin)) aspirin 81 mg tablet,delayed 81 mg PO DAILY #30 tabs 05/16/22 release doxycycline monohydrate 100 mg 100 mg PO BID #60 caps 05/16/22 capsule tamsulosin 0.4 mg capsule 0.4 mg PO DAILY #30 caps 05/16/22 esomeprazole magnesium 40 mg 40 mg PO DAILY #30 caps 09/04/22 capsule,delayed release (Nexium) [id number] 1 cap PO QID #120 caps 09/04/22 24,000-76,000-120,000 unit capsule,delayed rel (Creon) ondansetron 4 mg disintegrating 4 mg PO Q8H PRN nausea and 09/04/22 tablet vomiting #20 tabs sucralfate 1 gram tablet 1 g PO BEDTIME #30 tabs 09/04/22 Allergies Allergy/AdvReac Type Severity Reaction Status Date / Time Iodinated Contrast Media Allergy Intermediate Difficulty Verified 09/04/22 10:47 [IV CONTRAST] Breathing Penicillins Allergy Mild RASH Verified 09/04/22 10:47 Sulfa (Sulfonamide Allergy Mild RASH Verified 09/04/22 10:47 Antibiotics) codeine AdvReac Mild STOMACH Verified 09/04/22 10:47 UPSET Docusate Calcium Allergy Mild rash Uncoded 09/04/22 10:47 PMFSH Past Medical History Medical History Adhesive capsulitis of left shoulder Anal fistula Arthritis Asthma Atrial flutter CAD (coronary artery disease) Cellulitis Depression Diabetes GERD (gastroesophageal reflux disease) Gout History of panic attacks Hx of myocardial infarction Hypertension Low back pain Migraines Perianal abscess Scoliosis Seizures Tubular adenoma Surgical History H/O colonoscopy History of angioplasty History of appendectomy History of esophagogastroduodenoscopy (EGD) History of incision and drainage (~10/19/21) History of open heart surgery History of sinus surgery History of umbilical hernia repair Family History Family History Father No problems noted. Mother History of stomach cancer History of liver cancer Brother No problems noted. Social History 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 date night caregiver to a significant other at home: Yes (children) Do you presently have visiting nurse or other home services: No Alcohol intake: never Patient Tobacco Use Status: Never used Tobacco Advance Directives: Yes Advance Directives on File: Yes Advance Directives Date on File: 05/15/22 service: No Current occupational status: disabled Physical Exam Vital Signs: Vital Signs: Last Vital Signs Temp 98.4 F 09/04/22 21:31 Pulse 98 09/04/22 21:31 Resp 20 09/04/22 21:31 BP 129/65 09/04/22 21:31 Pulse Ox 97 09/04/22 21:31 O2 Del Method Room Air 09/04/22 21:31 BMI result Body Mass Index 37.6 Medical Decision Making Medical Decision Making MDM Narrative: 57-year-old male who arrives via EMS tear full and stating that he became dizzy with numbness in left upper and left lower extremity, NIH-1, still has symptoms, on aspirin and Eliquis with last Eliquis dose taken in the morning and also continues on to endorse that he is also short of breath and complaining of right-sided chest discomfort and left-sided neck pain. His son is at bedside, I did review his prior presentation in May of the same your where patient presented with similar symptoms except at that time he had additional speech difficulties. At that time he had a CT angio of head and neck without adverse events although the provider at that time it did give the patient Pepcid/Solu- Medrol/Benadryl and patient did well and was admitted. On review of patient's documentation it is noted that he was tested for syphilis previously and was noted to have a positive test result. At the time he was treated with 1 month of doxycycline and was supposed to follow-up afterwards. 2118: [facility] called to endorse that noncontrast CT of the head is without acute findings for hemorrhage and no large territorial findings. 3: Spoke with Dr Whiting who recommends against CT angio but if numbness continues then will need MRI w/o contrast in the AM, admission for observation, no tPA at this time. 8: I discussed the case with inpatient hospitalist who accepts admission. 2231: With the physicist solid state I went 10 and asks the patient regarding his syphilis treatment, he states that he took the entire course however he did not follow-up afterwards for re-evaluation. I reviewed all investigations and I suspect stress elevation to the leukocytes, but on review of chemistries there is a noted GI with chronically stable glucose and calcium, troponin is undetectable at this time. Differential Diagnosis Hemorrhagic verses ischemic stroke, infection Admission/Observation Consideration of admission/observation: Escalation of care including ad mission/observation considered Consult Healthcare Provider Management of the patient was discussed with: Hospitalist and Office Rental Clerk Please see the discussion above Lab Data Please see the discussion above 09/04/22 21:46 09/04/22 21:47 Labs: Lab Results 09/04/22 09/04/22 09/04/22 Range/Units 21:17 21:18 21:46 WBC 11.2 H (4.8-10.8) X10*3/uL RBC 5.36 (4.60-5.80) X10*6/uL Hgb 14.7 (14.0-18.0) g/dl Hct 45.3 (42.0-52.0) % MCV 84.5 (80.0-98.0) fL MCH 27.4 (27.0-33.0) pg MCHC 32.5 (31.0-36.0) g/dl RDW 13.8 (11.0-16.0) % Plt Count 429 H (160-400) X10*3/uL MPV 9.7 (9.4-12.4) fL Immature Gran % (Auto) 0.4 (0.0-0.4) % Neut % (Auto) 50.2 (45-73) % Lymph % (Auto) 35.0 (20-40) % [place] % (Auto) 9.2 (2-11) % Eos % (Auto) 4.2 H (0-4) % Baso % (Auto) 1.0 (0-2) % Lymph # (Auto) 3.9 (1.2-4.9) X10*3/uL [place] # (Auto) 1.0 (0.1-1.2) X10*3/uL Eos # (Auto) 0.5 H (0.0-0.4) X10*3/uL Baso # (Auto) 0.1 (0.0-0.2) X10*3/uL Abs Immat Gran (auto) 0.04 H (0.00-0.03) X10*3/uL Absolute Neuts (auto) 5.6 (2.0-8.3) x10*3/uL Absolute Nucleated RBC 0.000 (0.0-0.012) X10*3/uL Nucleated RBC % (auto) 0.0 (0.0-0.2) /100WBC PT (10.0-13.1) SEC Whole Blood PT 13.2 (11.1-13.5) sec INR (0.9-1.1) Whole Blood INR 1.1 (0.9-1.1) APTT (26.0-36.4) SEC Sodium (135-145) mmol/L Potassium (3.3-5.1) mmol/L Chloride (96-108) mmol/L Carbon Dioxide (22-29) mmol/L Anion Gap (12-20) BUN (9-16) mg/dL Creatinine (0.5-1.4) mg/dL Estim Creat Clear Calc Estimated GFR POC Glucose 154 H (60-115) mg/dL Random Glucose (60-115) mg/dL Calcium (8.4-10.2) mg/dL Total Creatine Kinase (38-174) U/L Troponin I High Sens (<3.5-35.0) ng/L 09/04/22 09/04/22 09/04/22 Range/Units 21:47 21:47 21:47 WBC (4.8-10.8) X10*3/uL RBC (4.60-5.80) X10*6/uL Hgb (14.0-18.0) g/dl Hct (42.0-52.0) % MCV (80.0-98.0) fL MCH (27.0-33.0) pg MCHC (31.0-36.0) g/dl RDW (11.0-16.0) % Plt Count (160-400) X10*3/uL MPV (9.4-12.4) fL Immature Gran % (Auto) (0.0-0.4) % Neut % (Auto) (45-73) % Lymph % (Auto) (20-40) % [place] % (Auto) (2-11) % Eos % (Auto) (0-4) % Baso % (Auto) (0-2) % Lymph # (Auto) (1.2-4.9) X10*3/uL [place] # (Auto) (0.1-1.2) X10*3/uL Eos # (Auto) (0.0-0.4) X10*3/uL Baso # (Auto) (0.0-0.2) X10*3/uL Abs Immat Gran (auto) (0.00-0.03) X10*3/uL Absolute Neuts (auto) (2.0-8.3) x10*3/uL Absolute Nucleated RBC (0.0-0.012) X10*3/uL Nucleated RBC % (auto) (0.0-0.2) /100WBC PT 11.7 (10.0-13.1) SEC Whole Blood PT (11.1-13.5) sec INR 1.0 (0.9-1.1) Whole Blood INR (0.9-1.1) APTT 34.9 (26.0-36.4) SEC Sodium 136 (135-145) mmol/L Potassium 3.8 (3.3-5.1) mmol/L Chloride 103 (96-108) mmol/L Carbon Dioxide 24 (22-29) mmol/L Anion Gap 13 (12-20) BUN 27 H (9-16) mg/dL Creatinine 1.83 H (0.5-1.4) mg/dL Estim Creat Clear Calc 55.1 Estimated GFR 38 POC Glucose (60-115) mg/dL Random Glucose 137 H (60-115) mg/dL Calcium 10.3 H (8.4-10.2) mg/dL Total Creatine Kinase 109 (38-174) U/L Troponin I High Sens < 2.7 (<3.5-35.0) ng/L Independent Interpretation I performed an independent interpretation of an: EKG Interpretation: Normal sinus rhythm, HR-76, no STEMI, there is new ST changes at V4 but otherwise EKG is unchanged from prior. WV/QRS/QTC is within normal limits Radiology Impression Radiologist Impression: My interpretation is in agreement with radiology's impression, there is no evidence of hemorrhagic etiology. External Record Review External record reviewed: Prior outpatient labs Chronic Conditions Patient?s care impacted by: Hypertension NIH Stroke Scale Internal: Initial- Upon Arrival Level of Consciousness: Alert Level of Consciousness Questions: Answers both questions correctly Level of Consciousness Commands: Performs both tasks correctly Best Gaze: Normal Visual: No visual loss Facial Palsy: Normal Motor Arm (Right): No drift Motor Arm (Left): No drift Motor Leg (Right): No drift Motor Leg (Left): No drift Limb Ataxia: Absent Sensory: Mild to moderate sensory loss Best Language: No aphasia Dysarthia: Normal Extinction and Inattention: No abnormality Score: 1 Critical Care Time Critical Care Time Critical Care Time: Yes Total Critical Care Time: 45 Attestation: I personally attest to this time spent taking care of the patient. Discharge Plan Discharge Clinical Impression: GI (acute kidney injury), Neurological deficit present Patient Disposition: Admitted As Inpatient
[2022-09-04 21:51] LABS: MANUAL DIFF FLAG NO
[2022-09-04 21:52] LABS: Basophils Absolute Auto 0.1 X10*3/uL (0.0-0.2); Eosinophils Absolute Auto 0.5 X10*3/uL (0.0-0.4); Eosinophils Percent Auto 4.2 % (0-4); Hematocrit 45.3 % (42.0-52.0); Hemoglobin 14.7 g/dl (14.0-18.0); Imm Gran Abs Auto 0.04 X10*3/uL (0.00-0.03); Imm Gran Pct Auto 0.4 % (0.0-0.4); Lymphocytes Absolute Auto 3.9 X10*3/uL (1.2-4.9); Mean Corpuscular HGB Conc 32.5 g/dl (31.0-36.0); Mean Corpuscular Hemoglobin 27.4 pg (27.0-33.0); Mean Corpuscular Volume 84.5 fL (80.0-98.0); Mean Platelet Volume 9.7 fL (9.4-12.4); Monocytes Percent Auto 9.2 % (2-11); Neutrophils Absolute Auto 5.6 x10*3/uL (2.0-8.3); Neutrophils Percent Auto 50.2 % (45-73); Platelet Count 429 X10*3/uL (160-400); Red Blood Count 5.36 X10*6/uL (4.60-5.80); Red Cell Distribution Width 13.8 % (11.0-16.0); White Blood Count 11.2 X10*3/uL (4.8-10.8)
[2022-09-04 22:00] LABS: Prothrombin Time 11.7 SEC (10.0-13.1)
[2022-09-04 22:02] LABS: Partial Thromboplastin Time 34.9 SEC (26.0-36.4)
[2022-09-04 22:04] LABS: Stroke Lab Use COMPLETE
[2022-09-04 22:07] LABS: Anion Gap 13 (12-20); Blood Urea Nitrogen 27 mg/dL (9-16); Calcium 10.3 mg/dL (8.4-10.2); Carbon Dioxide 24 mmol/L (22-29); Chloride 103 mmol/L (96-108); Creatinine Clr Calc Pharmacy 55.1; Estimated Glomerular Filt Rate 38; Glucose Random 137 mg/dL (60-115); Potassium 3.8 mmol/L (3.3-5.1); Sodium 136 mmol/L (135-145)
[2022-09-04 22:14] LABS: Troponin-I High Sensitivity < 2.7 ng/L (<3.5-35.0)
--- NOTE | 2022-09-04 22:27 | P.HPHOSP_ITS ---
History of Present Illness Date of Service: 09/04/22 Chief Complaint: dizziness/Numbness Ghanaian-speaking, history is obtained with the help of an balance wheel screw hole driller 57-year-old male with past medical history of CVA residual left-sided weakness, CAD, diabetes, HTN, AFib, GERD, seizure disorder, presents the hospital with complaints of worsening left-sided numbness, and lower extremity weakness as well as feeling dizzy. Patient reports that he got home from an appointment in the afternoon, he was cooking in the house when all of a sudden he started feeling dizzy, he had lunch sat down, and when his son called on him on getting up got more dizzy and almost passed out. He denies having any syncopal episode, no loss of consciousness, no chest pain,No palpitations. no headache or change in vision, but has left-sided numbness, and left-sided lower extremity weakness more than his usual. Patient denies any abdominal pain nausea or vomiting, no diarrhea constipation, no urinary symptoms and no lower extremity edema. On arrival to the ED patient hemodynamically stable with no significant abnormal vitals Labs are significant for WBC count of 11.2, creatinine of 1.83 which is slightly higher than his baseline of 0.9, head CT shows no evidence of acute intracranial hemorrhage or edematous territorial infarction this case was discussed with Neurology, who recommended admission for further evaluation Review of Systems Review of Systems: Yes all other systems are reviewed and are negative [facility] Medical History Adhesive capsulitis of left shoulder Anal fistula Arthritis Asthma Atrial flutter CAD (coronary artery disease) Cellulitis Depression Diabetes GERD (gastroesophageal reflux disease) Gout History of panic attacks Hx of myocardial infarction Hypertension Low back pain Migraines Perianal abscess Scoliosis Seizures Tubular adenoma Family History Father No problems noted. Mother History of stomach cancer History of liver cancer Brother No problems noted. Surgical History H/O colonoscopy History of angioplasty History of appendectomy History of esophagogastroduodenoscopy (EGD) History of incision and drainage (~10/19/21) History of open heart surgery History of sinus surgery History of umbilical hernia repair 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 customer care assistant to a significant other at home: Yes (children) Do you presently have visiting nurse or other home services: No Alcohol intake: never Patient Tobacco Use Status: Never used Tobacco Advance Directives: Yes Advance Directives on File: Yes Advance Directives Date on File: 05/15/22 service: No Current occupational status: disabled Meds Allergies Allergy/AdvReac Type Severity Reaction Status Date / Time Iodinated Contrast Media Allergy Intermediate Difficulty Verified 09/04/22 10:47 [IV CONTRAST] Breathing Penicillins Allergy Mild RASH Verified 09/04/22 10:47 Sulfa (Sulfonamide Allergy Mild RASH Verified 09/04/22 10:47 Antibiotics) codeine AdvReac Mild STOMACH Verified 09/04/22 10:47 UPSET Docusate Calcium Allergy Mild rash Uncoded 09/04/22 10:47 Active Medications: Current Medications Acetaminophen (Acetaminophen 325 Mg Tablet) 650 mg PO Q6H PRN PRN Reason: Pain, Mild (Pain Scale 1-3) Docusate Sodium (Docusate Sodium 100 Mg Capsule) 100 mg PO DAILY PRN PRN Reason: Constipation Ondansetron HCl (Ondansetron Hcl 4 Mg/2 Ml Vial) 4 mg IVPUSH Q8H PRN PRN Reason: Nausea and Vomiting Home Medications Medication Instructions Recorded Confirmed Last Taken Type amlodipine 10 mg tablet 10 mg PO DAILY 02/17/20 09/05/22 09/04/22 15:00 History chlorthalidone 50 mg tablet 50 mg PO DAILY@1200 02/17/20 09/05/22 09/04/22 15:00 History fenofibrate 160 mg tablet 160 mg PO BEDTIME 02/17/20 09/05/22 09/03/22 History metformin 500 mg tablet 500 mg PO BID 02/17/20 09/05/22 09/04/22 15:00 History niacin 500 mg tablet,extended 500 mg PO BEDTIME cholesterol 10/25/20 09/05/22 09/03/22 History release 24 hr cholecalciferol (vitamin D3) 50 50 mcg PO DAILY 01/29/21 09/05/22 09/04/22 15:00 History mcg (2,000 unit) capsule loratadine 10 mg tablet 10 mg PO DAILY 01/29/21 09/05/22 09/04/22 15:00 History atorvastatin 80 mg tablet 1 tab PO BEDTIME 08/27/21 09/05/22 09/03/22 History fluticasone propionate 110 1 puff inhalation BID 08/27/21 09/05/22 09/04/22 15:00 History mcg/actuation HFA aerosol inhaler (Flovent HFA) dulaglutide 3 mg/0.5 mL 3 mg subcut FR@0900 12/19/21 09/05/22 08/30/22 [facility] fluticasone propionate 50 2 spray intranasal DAILY PRN 12/19/21 09/05/22 Unknown History mcg/actuation nasal Allergic Symptoms spray,suspension glipizide 10 mg tablet, extended 1 tab PO BID 05/15/22 09/05/22 09/04/22 15:00 History release 24 hr metoprolol tartrate 50 mg tablet 1.5 tab PO BID 05/15/22 09/05/22 09/04/22 15:00 History losartan 100 mg tablet 100 mg PO DAILY 07/02/22 09/05/22 09/04/22 15:00 History nitroglycerin 0.4 mg sublingual 0.4 mg sublingual Q5M PRN Chest 07/02/22 09/05/22 Unknown History tablet Pain acetaminophen 650 mg 650 mg PO Q8H PRN mild pain 09/05/22 09/05/22 Unknown History tablet,extended release baclofen 10 mg tablet 10 mg PO TID PRN muscle spasm 09/05/22 09/05/22 Unknown History diclofenac sodium 1 % topical gel 2 g topical QID PRN pain 09/05/22 09/05/22 Unknown History empagliflozin 10 mg tablet 10 mg PO DAILY 09/05/22 09/05/22 09/04/22 15:00 History (Jardiance) esomeprazole magnesium 40 mg 40 mg PO DAILY@0630 09/05/22 09/05/22 Unknown History capsule,delayed release (Nexium) gabapentin 600 mg tablet 600 mg PO BID 09/05/22 09/05/22 09/04/22 15:00 History lidocaine 5 % topical patch 1 - 2 patch topical DAILY PRN Back 09/05/22 09/05/22 Unknown History Pain Physical Exam Vital Signs and Narrative: Vital Signs: Last Vital Signs Temp 98.4 F 09/04/22 21:31 Pulse 98 09/04/22 21:31 Resp 20 09/04/22 21:31 BP 129/65 09/04/22 21:31 Pulse Ox 97 09/04/22 21:31 O2 Del Method Room Air 09/04/22 21:31 BMI result Body Mass Index 37.6 Const: Other: patient alert, awake, oriented to self and place General: cooperative and no acute distress Orientation/consciousness: patient oriented x3 Eyes: General: appearance normal, both eyes and all related structures Pupils: Equal, round and reactive pupils present Resp: Effort & Inspection: normal respiratory effort Auscultation: clear to auscultation bilaterally Cardio: Rate: regular rate Rhythm: regular rhythm GI: Palpation (GI): Soft to palpation Auscultation: normal bowel sounds Skin: General skin exam: no rashes or lesions noted Neuro: Other: patient unable to complete nystagmus test or finger to nose test he says that he cannot follow my finger without moving his head strength is 2/5 in the left lower extremity, 3/5 in the left upper extremity, 5/5 in upper and lower right extremities General: patient oriented x3 Cranial nerves: Yes Equal, round and reactive pupils present Cognition (Neuro): normal cognition Extrem: General: Yes normal to inspection and Yes no pedal edema Results Labs 09/04/22 21:46 09/04/22 21:47 Labs: Laboratory Results - last 24 hr 09/04/22 09/04/22 09/04/22 21:17 21:18 21:46 MCV 84.5 MCH 27.4 MCHC 32.5 RDW 13.8 Plt Count 429 H MPV 9.7 Immature Gran % (Auto) 0.4 Neut % (Auto) 50.2 Lymph % (Auto) 35.0 [place] % (Auto) 9.2 Eos % (Auto) 4.2 H Baso % (Auto) 1.0 Lymph # (Auto) 3.9 [place] # (Auto) 1.0 Eos # (Auto) 0.5 H Baso # (Auto) 0.1 Abs Immat Gran (auto) 0.04 H Absolute Neuts (auto) 5.6 Absolute Nucleated RBC 0.000 Nucleated RBC % (auto) 0.0 PT Whole Blood PT 13.2 INR Whole Blood INR 1.1 APTT Anion Gap Estim Creat Clear Calc Estimated GFR POC Glucose 154 H Random Glucose Calcium Total Creatine Kinase Troponin I High Sens 09/04/22 09/04/22 09/04/22 21:47 21:47 21:47 MCV MCH MCHC RDW Plt Count MPV Immature Gran % (Auto) Neut % (Auto) Lymph % (Auto) [place] % (Auto) Eos % (Auto) Baso % (Auto) Lymph # (Auto) [place] # (Auto) Eos # (Auto) Baso # (Auto) Abs Immat Gran (auto) Absolute Neuts (auto) Absolute Nucleated RBC Nucleated RBC % (auto) PT 11.7 Whole Blood PT INR 1.0 Whole Blood INR APTT 34.9 Anion Gap 13 Estim Creat Clear Calc 55.1 Estimated GFR 38 POC Glucose Random Glucose 137 H Calcium 10.3 H Total Creatine Kinase 109 Troponin I High Sens < 2.7 Imaging Radiologist's Impressions: Impressions Head CT 09/04/22 21:10 IMPRESSION: 1. No evidence of acute intracranial hemorrhage or edematous territorial infarction. 2. Mild underlying microangiopathy. This critical result was discussed with Dr Winslow at 21:20 on 09/04/2022 and it was ascertained that the content and urgency of the report was understood at the time of direct communication. Assessment and Plan (1) CVA (cerebral vascular accident): Status: Acute (2) GI (acute kidney injury): Status: Acute Plan 57-year-old male with past medical history of CVA with left-sided deficit presents the hospital with complaints of dizziness and new symptoms on the left # acute CVA - given the worsening weakness, and numbness, patient will be evaluated with MRI in a.m. - continue aspirin, statin - continue Eliquis - neurology consulted # GI - likely secondary to dehydration - will treat with IV fluids - follow BMP # dizziness - likely vasovagal - will obtain orthostatic vitals - follow symptoms # diabetes - hold oral antihyperglycemics - will add low-dose sliding scale insulin - diabetic diet # AFib - rate controlled - continue Eliquis, for low # hypertension - stable - continue antihypertensives DVT prophylaxis: Eliquis Time Spent With Patient Time: Total time managing care of this patient today ____ minutes. Quality Stroke Does the patient have a stroke diagnosis?: No VTE Prior VTE?: No VTE Risk Level:: Medical - moderate - high VTE Device Contraindication: Treatment Not Indicated VTE Drug Contraindication: N/A - Med Ordered
[2022-09-04 23:23] VITALS: BP 119/63; PULSE 72
[2022-09-04 23:26] VITALS: BP 116/69; PULSE 78
[2022-09-04 23:49] VITALS: BP 126/71; PULSE 69; RESP 18; TEMP 36.1; O2SAT 96
[2022-09-05] VITALS (11 sets, daily range): BP systolic 112–140; BP diastolic 61–80; PULSE 66–88; RESP 16–20; TEMP 36.1–36.8; O2SAT 92–98; BMI 37.4
[2022-09-05] LABS: Glucose, Whole Blood 132 mg/dL (60-115)
[2022-09-05] MEDS: Acetaminophen 325 MG TABLET 650 MG PO (06:19)
[2022-09-05 07:24] LABS: Anion Gap 15 (12-20); Blood Urea Nitrogen 26 mg/dL (9-16); Calcium 10.2 mg/dL (8.4-10.2); Carbon Dioxide 23 mmol/L (22-29); Chloride 105 mmol/L (96-108); Creatinine Clr Calc Pharmacy 78.6; Estimated Glomerular Filt Rate 58; Glucose Random 127 mg/dL (60-115); Potassium 3.6 mmol/L (3.3-5.1); Sodium 139 mmol/L (135-145)
[2022-09-05 07:26] LABS: Cholesterol 228 mg/dL; HDL Cholesterol 29 mg/dL; Triglycerides 429 mg/dL
--- NOTE | 2022-09-05 09:11 | PHA.MEDREC ---
Pharmacy Consult ? Medication Reconciliation Pharmacy has completed the medication reconciliation. Utilized translator/interpreter services. Spoke to patient to confirm meds and spoke to [facility] to confirm med box meds. Patient is supposed to start Nexium and D/C omeprazole and famotidine, but hasn't went to pharmacy to switch medications. Patient also on zofran for N/V and carafate 1g at bedtime, as per office visit on 09/04/[address] Lockhart.
--- NOTE | 2022-09-05 09:23 | MHC.CM.PN ---
CM met with Patient at bedside with the assist of a Automated Access Systems Technician and addressed COMBS with Patient (original was given to him and a copy has been placed on the chart). Patient lives in a house with his 2 Children ages 12 & 13 years of age and he uses a cane to assist with mobility. Patient receives a Joaquín SENIOR ASSISTANT MANAGER 16 1/2 hours/week and home resume said services is the goal. CM has initiated and will follow for dc planning. Patient is clayton avila and his PCP is Dr. Gale.Patient's Friend/Hal is the HCP.
[2022-09-05] MEDS: Lipase/Prot/Amylase 24/76/120K 1 CAP CAPSULE.DR PO ×3 (12:39→22:51)
--- NOTE | 2022-09-05 13:44 | P.PNIM_ITS ---
Subjective Subjective Date of Service: 09/05/22 Interval History: seen and examined this morning. history obtained with the assistance of a system trainer follow up for left side numbness. left side numbness resolved also reporting right side rib pain - chronic related to fall several months ago. sob on admission resolved Review of Systems Review of Systems: Yes all other systems are reviewed and are negative Constitutional Constitutional: Denies chills and Denies fever(s) Cardiovascular Cardiovascular: Denies palpitations and Denies dyspnea Respiratory Respiratory: Denies cough and Denies dyspnea Gastrointestinal Gastrointestinal: Denies abdominal pain, Denies nausea and Denies vomiting Endocrine Endocrine: Denies palpitations Physical Exam Vital Signs: Vital Signs: Last Vital Signs Temp 97.5 F 09/05/22 11:18 Pulse 73 09/05/22 11:18 Resp 20 09/05/22 11:18 BP 122/72 09/05/22 11:18 Pulse Ox 96 09/05/22 11:18 O2 Del Method Room Air 09/05/22 11:18 BMI result Body Mass Index 37.4 Const: General: cooperative, comfortable, no acute distress, awake and Physically active Nutritional Appearance: overweight Orientation/consciousness: patient oriented x3 Resp: Effort & Inspection: normal respiratory effort, able to speak in complete sentences and no respiratory distress Auscultation: clear to auscultation bilaterally Cardio: Rate: regular rate Heart sounds: S1 normal heart sound present and S2 normal heart sound present GI: Inspection: No distended Palpation (GI): Soft to palpation and nontender Neuro: Other: RUE and LUE strength equal General: patient oriented x3, moves all extremities and CN's II-XI intact bilaterally Cranial nerves: Yes Midline tongue present Extrem: General: Yes no pedal edema Objective Data Active Medications Acetaminophen (Acetaminophen 325 Mg Tablet) 650 mg PO Q6H PRN PRN Reason: Pain, Mild (Pain Scale 1-3) Last Admin: 09/05/22 06:19 Dose: 650 mg Documented By: FLEX Amlodipine Besylate (Amlodipine Besylate 10 Mg Tablet) 10 mg PO DAILY [facility]; Protocol Lipase/Protease/Amylase (Lipase/Prot/Amylase 24/76/120k 1 Cap Capsule.Dr) 1 cap PO QID [facility] Last Admin: 09/05/22 12:39 Dose: 1 cap Documented By: DOBROB Apixaban (Apixaban 5 Mg Tablet) 5 mg PO BID [facility] Aspirin (Aspirin Enteric Coated 81 Mg Tablet.) 81 mg PO DAILY [facility] Atorvastatin Calcium (Atorvastatin Calcium 80 Mg Tablet) 80 mg PO BEDTIME [facility] Baclofen (Baclofen 10 Mg Tablet) 10 mg PO TID PRN PRN Reason: muscle spasm Docusate Sodium (Docusate Sodium 100 Mg Capsule) 100 mg PO DAILY PRN PRN Reason: Constipation Docusate Sodium (Docusate Sodium 100 Mg Capsule) 200 mg PO BEDTIME [facility] Fenofibrate (Fenofibrate 160 Mg Tablet) 160 mg PO BEDTIME [facility] Fluticasone Propionate (Fluticasone Propionate 100 Mcg Blst.W.Dev) 1 puff INHALE RBID [facility] Gabapentin (Gabapentin 600 Mg Tablet) 600 mg PO BID [facility] Lidocaine (Lidocaine 4 % Patch Adh..Patch) 2 patch TRANSDERMA DAILY PRN PRN Reason: Back Pain Metoprolol Tartrate (Metoprolol Tartrate 25 Mg Tablet) 75 mg PO BID [facility]; Protocol Non-Formulary Medication (Niacin) 500 mg PO BEDTIME [facility] Omeprazole (Omeprazole 20 Mg Capsule.) 20 mg PO DAILY@0630 [facility] Ondansetron HCl (Ondansetron Hcl 4 Mg/2 Ml Vial) 4 mg IVPUSH Q8H PRN PRN Reason: Nausea and Vomiting Pharmacy Consult (Consult Rx Perform Med Rec) 1 each MISCELLANE ONCE PRN PRN Reason: Consult order Sucralfate (Sucralfate 1 Gm Tablet) 1 gm PO BEDTIME [facility] Tamsulosin HCl (Tamsulosin Hcl 0.4 Mg Capsule) 0.4 mg PO DAILY [facility] Vitamin D (Cholecalciferol (Vitamin D3) 25 Mcg Tablet) 50 mcg PO DAILY [facility] Labs 09/04/22 21:46 09/05/22 06:24 Labs: Laboratory Results - last 24 hr 09/04/22 09/04/22 09/04/22 21:17 21:18 21:46 MCV 84.5 MCH 27.4 MCHC 32.5 RDW 13.8 Plt Count 429 H MPV 9.7 Immature Gran % (Auto) 0.4 Neut % (Auto) 50.2 Lymph % (Auto) 35.0 [place] % (Auto) 9.2 Eos % (Auto) 4.2 H Baso % (Auto) 1.0 Lymph # (Auto) 3.9 [place] # (Auto) 1.0 Eos # (Auto) 0.5 H Baso # (Auto) 0.1 Abs Immat Gran (auto) 0.04 H Absolute Neuts (auto) 5.6 Absolute Nucleated RBC 0.000 Nucleated RBC % (auto) 0.0 PT Whole Blood PT 13.2 INR Whole Blood INR 1.1 APTT Anion Gap Estim Creat Clear Calc Estimated GFR POC Glucose 154 H Random Glucose Calcium Total Creatine Kinase Troponin I High Sens Triglycerides Cholesterol LDL Cholesterol, Calc HDL Cholesterol 09/04/22 09/04/22 09/04/22 21:47 21:47 21:47 MCV MCH MCHC RDW Plt Count MPV Immature Gran % (Auto) Neut % (Auto) Lymph % (Auto) [place] % (Auto) Eos % (Auto) Baso % (Auto) Lymph # (Auto) [place] # (Auto) Eos # (Auto) Baso # (Auto) Abs Immat Gran (auto) Absolute Neuts (auto) Absolute Nucleated RBC Nucleated RBC % (auto) PT 11.7 Whole Blood PT INR 1.0 Whole Blood INR APTT 34.9 Anion Gap 13 Estim Creat Clear Calc 55.1 Estimated GFR 38 POC Glucose Random Glucose 137 H Calcium 10.3 H Total Creatine Kinase 109 Troponin I High Sens < 2.7 Triglycerides Cholesterol LDL Cholesterol, Calc HDL Cholesterol 09/04/22 09/05/22 09/05/22 23:55 06:24 06:24 MCV MCH MCHC RDW Plt Count MPV Immature Gran % (Auto) Neut % (Auto) Lymph % (Auto) [place] % (Auto) Eos % (Auto) Baso % (Auto) Lymph # (Auto) [place] # (Auto) Eos # (Auto) Baso # (Auto) Abs Immat Gran (auto) Absolute Neuts (auto) Absolute Nucleated RBC Nucleated RBC % (auto) PT Whole Blood PT INR Whole Blood INR APTT Anion Gap 15 Estim Creat Clear Calc 78.6 Estimated GFR 58 POC Glucose 132 H Random Glucose 127 H Calcium 10.2 Total Creatine Kinase Troponin I High Sens Triglycerides 429 Cholesterol 228 LDL Cholesterol, Calc TNP HDL Cholesterol 29 Assessment and Plan (1) GI (acute kidney injury): Status: Acute Plan This is a 57-year-old male with a past medical history of hypertension, hyperlipidemia, diabetes, CAD, AFib on Eliquis, history of CVA with mild residual left-sided weakness who presents to the ED with left side numbness, and right rib pain Left side numbness similar presentation at [facility] in 2020, MRI negative; here in April - no sign of new stroke at that time ct brain negative. left side numbness improved PT/OT eval obtained - no indication for services on discharge continue aspirin, statin, Eliquis neuro consult pending sob resolved. no hypoxia cxr pending right rib pain seems chronic continue home lidocaine patch cxr pending GI unclear fluctuation in renal function from yesterday am to pm repeat today near baseline HTN Continue continue Norvasc, metoprolol unspecified atrial flutter Continue home Eliquis, metoprolol Diabetes Hold home oral hypoglycemic agents.? Insulin sliding scale, diabetic diet continue remainder of baseline medications dvt ppx - eliquis attending - dr ace Time Spent With Patient Time: Total time managing care of this patient today ____ minutes. Quality Stroke Does the patient have a stroke diagnosis?: No VTE Prior VTE?: No VTE Risk Level:: Medical - moderate - high VTE Device Contraindication: N/A - Device Ordered VTE Drug Contraindication: N/A - Med Ordered
[2022-09-05 15:59] LABS: Glucose, Whole Blood 127 mg/dL (60-115)
[2022-09-05] MEDS: Fluticasone Propionate 100 MCG BLST.W.DEV 1 PUFF INHALE (19:45)
[2022-09-05 20:40] LABS: Glucose, Whole Blood 130 mg/dL (60-115)
[2022-09-05] MEDS: Gabapentin 600 MG TABLET PO (22:51)
[2022-09-05] MEDS: Apixaban 5 MG TABLET PO (22:51)
[2022-09-05] MEDS: Docusate Sodium 100 MG CAPSULE 200 MG PO (22:51)
[2022-09-05] MEDS: Fenofibrate 160 MG TABLET PO (22:52)
[2022-09-05] MEDS: Atorvastatin Calcium 80 MG TABLET PO (22:52)
[2022-09-05] MEDS: Sucralfate 1 GM TABLET PO (22:52)
[2022-09-05] MEDS: Metoprolol Tartrate 25 MG TABLET 75 MG PO (22:53)
[2022-09-06 03:00] VITALS: BP 119/72; PULSE 72; RESP 20; TEMP 36.2; O2SAT 93
[2022-09-06] MEDS: Omeprazole 20 MG CAPSULE.DR PO (05:50)
[2022-09-06 07:49] VITALS: BP 130/84; PULSE 72; RESP 20; TEMP 36.3; O2SAT 96
[2022-09-06 07:57] LABS: Glucose, Whole Blood 145 mg/dL (60-115)
[2022-09-06] MEDS: Fluticasone Propionate 100 MCG BLST.W.DEV 1 PUFF INHALE (07:58)
[2022-09-06 08:00] VITALS: PULSE 73; RESP 18; O2SAT 97
[2022-09-06] MEDS: Tamsulosin HCL 0.4 MG CAPSULE PO (09:21)
[2022-09-06] MEDS: Gabapentin 600 MG TABLET PO (09:21)
[2022-09-06] MEDS: Aspirin Enteric Coated 81 MG TABLET.DR PO (09:22)
[2022-09-06] MEDS: Cholecalciferol (Vitamin D3) 25 MCG TABLET 50 MCG PO (09:22)
[2022-09-06] MEDS: Apixaban 5 MG TABLET PO (09:22)
[2022-09-06] MEDS: Metoprolol Tartrate 25 MG TABLET 75 MG PO (09:22)
[2022-09-06] MEDS: amLODIPine Besylate 10 MG TABLET PO (09:22)
[2022-09-06] MEDS: Lipase/Prot/Amylase 24/76/120K 1 CAP CAPSULE.DR PO ×2 (09:25→11:54)
--- NOTE | 2022-09-06 11:06 | P.CNNE_ITS ---
History of Present Illness Data of Consult Service Date: 09/06/22 Primary Care Provider: Hanna Kimball MD HPI Reason for consult: Numbness 57 years old man with no confirmation of having stroke though multiple admission in hospital for with similar situations. He has been diagnosed in the past with complicated migraine causing similar symptoms. He was here again with similar symptoms causing left-sided body numbness. He said the numbness started in left hand and it took 4-10 minutes before it has slowly started to involve the whole left side of body and lasted few hours. He denied any headache but reported that he was having frequent migraine headaches otherwise. Previously his brain scans have never revealed any stroke. Review of Systems Review of Systems: No recent cold or flu-like illness PMFSH Past Medical History Medical History Adhesive capsulitis of left shoulder Anal fistula Arthritis Asthma Atrial flutter CAD (coronary artery disease) Cellulitis Depression Diabetes GERD (gastroesophageal reflux disease) Gout History of panic attacks Hx of myocardial infarction Hypertension Low back pain Migraines Perianal abscess Scoliosis Seizures Tubular adenoma Family History Family History Father No problems noted. Mother History of stomach cancer History of liver cancer Brother No problems noted. 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 significant other at home: Yes (children) Do you presently have visiting nurse or other home services: No Alcohol intake: never Patient Tobacco Use Status: Never used Tobacco Advance Directives Date on File: 05/15/22 service: No Current occupational status: disabled Meds Allergies Allergy/AdvReac Type Severity Reaction Status Date / Time Iodinated Contrast Media Allergy Intermediate Difficulty Verified 09/04/22 10:47 [IV CONTRAST] Breathing Penicillins Allergy Mild RASH Verified 09/04/22 10:47 Sulfa (Sulfonamide Allergy Mild RASH Verified 09/04/22 10:47 Antibiotics) codeine AdvReac Mild STOMACH Verified 09/04/22 10:47 UPSET Docusate Calcium Allergy Mild rash Uncoded 09/04/22 10:47 Active Medications: Current Medications Acetaminophen (Acetaminophen 325 Mg Tablet) 650 mg PO Q6H PRN PRN Reason: Pain, Mild (Pain Scale 1-3) Last Admin: 09/05/22 06:19 Dose: 650 mg Amlodipine Besylate (Amlodipine Besylate 10 Mg Tablet) 10 mg PO DAILY [facility]; Protocol Last Admin: 09/06/22 09:22 Dose: 10 mg Lipase/Protease/Amylase (Lipase/Prot/Amylase 24/76/120k 1 Cap Capsule.) 1 cap PO QID [facility] Last Admin: 09/06/22 09:25 Dose: 1 cap Apixaban (Apixaban 5 Mg Tablet) 5 mg PO BID [facility] Last Admin: 09/06/22 09:22 Dose: 5 mg Aspirin (Aspirin Enteric Coated 81 Mg Tablet.) 81 mg PO DAILY [facility] Last Admin: 09/06/22 09:22 Dose: 81 mg Atorvastatin Calcium (Atorvastatin Calcium 80 Mg Tablet) 80 mg PO BEDTIME [facility] Last Admin: 09/05/22 22:52 Dose: 80 mg Baclofen (Baclofen 10 Mg Tablet) 10 mg PO TID PRN PRN Reason: muscle spasm Dextrose (Dextrose 50 % 25 Gm/50 Ml Syringe) 25 gm IVPUSH Q15M PRN; Protocol PRN Reason: per Hypoglycemia Standing Ord. Docusate Sodium (Docusate Sodium 100 Mg Capsule) 100 mg PO DAILY PRN PRN Reason: Constipation Docusate Sodium (Docusate Sodium 100 Mg Capsule) 200 mg PO BEDTIME [facility] Last Admin: 09/05/22 22:51 Dose: 200 mg Fenofibrate (Fenofibrate 160 Mg Tablet) 160 mg PO BEDTIME [facility] Last Admin: 09/05/22 22:52 Dose: 160 mg Fluticasone Propionate (Fluticasone Propionate 100 Mcg Blst.W.Dev) 1 puff INHALE RBID [facility] Last Admin: 09/06/22 07:58 Dose: 1 puff Gabapentin (Gabapentin 600 Mg Tablet) 600 mg PO BID [facility] Last Admin: 09/06/22 09:21 Dose: 600 mg Glucose (Glucose Gel 15 Gm Gel..Gram.) 15 gm PO Q15M PRN; Protocol PRN Reason: per Hypoglycemia Standing Ord. Insulin Human Lispro (Insulin Lispro 100 Unit/Ml 3 Ml Vial) 0 unit SUBCUT QIDACHS [facility]; Protocol Last Admin: 09/06/22 08:00 Dose: Not Given Lidocaine (Lidocaine 4 % Patch Adh..Patch) 2 patch TRANSDERMA DAILY PRN PRN Reason: Back Pain Metoprolol Tartrate (Metoprolol Tartrate 25 Mg Tablet) 75 mg PO BID [facility]; Protocol Last Admin: 09/06/22 09:22 Dose: 75 mg Niacin (Niacin Er 250 Mg Tablet.Er) 500 mg PO BEDTIME [facility] Last Admin: 09/05/22 22:52 Dose: 500 mg Omeprazole (Omeprazole 20 Mg Capsule.Dr) 20 mg PO DAILY@629 [facility] Last Admin: 09/06/22 05:50 Dose: 20 mg Ondansetron HCl (Ondansetron Hcl 4 Mg/2 Ml Vial) 4 mg IVPUSH Q8H PRN PRN Reason: Nausea and Vomiting Pharmacy Consult (Consult Rx Perform Med Rec) 1 each MISCELLANE ONCE PRN PRN Reason: Consult order Sucralfate (Sucralfate 1 Gm Tablet) 1 gm PO BEDTIME [facility] Last Admin: 09/05/22 22:52 Dose: 1 gm Tamsulosin HCl (Tamsulosin Hcl 0.4 Mg Capsule) 0.4 mg PO DAILY [facility] Last Admin: 09/06/22 09:21 Dose: 0.4 mg Vitamin D (Cholecalciferol (Vitamin D3) 25 Mcg Tablet) 50 mcg PO DAILY [facility] Last Admin: 09/06/22 09:22 Dose: 50 mcg Home Medications Medication Instructions Recorded Confirmed Last Taken Type amlodipine 10 mg tablet 10 mg PO DAILY 02/17/20 09/05/22 09/04/22 15:00 History chlorthalidone 50 mg tablet 50 mg PO DAILY@1200 02/17/20 09/05/22 09/04/22 15:00 History fenofibrate 160 mg tablet 160 mg PO BEDTIME 02/17/20 09/05/22 09/03/22 History metformin 500 mg tablet 500 mg PO BID 02/17/20 09/05/22 09/04/22 15:00 History niacin 500 mg tablet,extended 500 mg PO BEDTIME cholesterol 10/25/20 09/05/22 09/03/22 History release 24 hr cholecalciferol (vitamin D3) 50 50 mcg PO DAILY 01/29/21 09/05/22 09/04/22 15:00 History mcg (2,000 unit) capsule loratadine 10 mg tablet 10 mg PO DAILY 01/29/21 09/05/22 09/04/22 15:00 History atorvastatin 80 mg tablet 1 tab PO BEDTIME 08/27/21 09/05/22 09/03/22 History fluticasone propionate 110 1 puff inhalation BID 08/27/21 09/05/22 09/04/22 15:00 History mcg/actuation HFA aerosol inhaler (Flovent HFA) dulaglutide 3 mg/0.5 mL 3 mg subcut FR@0900 12/19/21 09/05/22 08/30/22 History subcutaneous pen injector (Trulicity) fluticasone propionate 50 2 spray intranasal DAILY PRN 12/19/21 09/05/22 Unknown History mcg/actuation nasal Allergic Symptoms spray,suspension glipizide 10 mg tablet, extended 1 tab PO BID 05/15/22 09/05/22 09/04/22 15:00 History release 24 hr metoprolol tartrate 50 mg tablet 1.5 tab PO BID 05/15/22 09/05/22 09/04/22 15:00 History losartan 100 mg tablet 100 mg PO DAILY 07/02/22 09/05/22 09/04/22 15:00 History nitroglycerin 0.4 mg sublingual 0.4 mg sublingual Q5M PRN Chest 07/02/22 09/05/22 Unknown History tablet Pain acetaminophen 650 mg 650 mg PO Q8H PRN mild pain 09/05/22 09/05/22 Unknown History tablet,extended release baclofen 10 mg tablet 10 mg PO TID PRN muscle spasm 09/05/22 09/05/22 Unknown History diclofenac sodium 1 % topical gel 2 g topical QID PRN pain 09/05/22 09/05/22 Unknown History empagliflozin 10 mg tablet 10 mg PO DAILY 09/05/22 09/05/22 09/04/22 15:00 History (Jardiance) esomeprazole magnesium 40 mg 40 mg PO DAILY@0630 09/05/22 09/05/22 Unknown History capsule,delayed release (Nexium) gabapentin 600 mg tablet 600 mg PO BID 09/05/22 09/05/22 09/04/22 15:00 History lidocaine 5 % topical patch 1 - 2 patch topical DAILY PRN Back 09/05/22 09/05/22 Unknown History Pain Physical Exam Vital Signs: Vital Signs: Last Vital Signs Temp 97.3 F 09/06/22 07:49 Pulse 73 09/06/22 08:00 Resp 18 09/06/22 08:00 BP 130/84 09/06/22 07:49 Pulse Ox 96 09/06/22 07:49 O2 Del Method Room Air 09/06/22 07:49 BMI result Body Mass Index 37.4 Neuro: Other: Alert and awake with normal spontaneity of speech fluency comprehension and affect. Face is symmetrical. There is no pronator drift. Deep tendon reflexes are trace to absent with flexor plantars Results Labs 09/04/22 21:46 09/05/22 06:24 Labs: Noncontrast head CT and CTA of brain and neck did not reveal any significant abnormality. Previous MRI has been negative Assessment and Plan (1) Migraine equivalent syndrome: Status: Acute 57 years old man with migraine and complicated migraine causing stroke-like symptoms. He has been admitted in this hospital with similar problems and presentation. His brain imaging has never revealed any stroke. Mainstay of management is treatment of anxiety, reassurance, and migraine. Topiramate 25 mg at night can be considered for migraine control. Time Spent With Patient Time: Total time managing care of this patient today ____ minutes. Procedures Date of Service Date of Service: 09/06/22
[2022-09-06 11:24] VITALS: BP 147/79; PULSE 62; RESP 20; TEMP 36.3; O2SAT 95
[2022-09-06 11:44] LABS: Glucose, Whole Blood 157 mg/dL (60-115)
[2022-09-06] MEDS: Insulin Lispro 100 UNIT/ML 3 ML VIAL SUBCUT (11:54)
--- NOTE | 2022-09-06 11:59 | PM.DS ---
DS: Providers Provider Date of Service: 09/06/22 Date of admission: 09/04/22 22:20 Date of discharge: 09/06/22 Primary care physician: Hanna Kimball MD Consults: 09/04/22 22:21 Consult to Neurology Routine Consulting Provider: [facility] Reason for consultation: TIA Has provider been notified: Yes Attending physician on discharge: Kurt Parker Discharging clinician: Debbie Lora DS: Diagnosis Discharge Diagnosis (1) Migraine equivalent syndrome: Status: Acute DS: Summary Hospital Course Hospital Course: From H&P on day of admission Icelandic-speaking, history is obtained with the help of an foreign language interpreter ?57-year-old male with past medical history of CVA? residual left-sided weakness, CAD, diabetes, HTN, AFib, GERD,? seizure disorder, presents the hospital with complaints of worsening left-sided numbness, and lower extremity weakness as well as feeling dizzy.? Patient reports that he got home from an appointment in the afternoon, he was cooking in the house when all of a sudden he started feeling dizzy, he had lunch sat down, and when his son called on him on getting up got more dizzy and almost passed out.? He denies having any syncopal episode, no loss of consciousness, no chest pain,No palpitations.? no headache or change in vision, but has left-sided numbness, and left-sided lower extremity weakness more than his usual.? Patient denies any abdominal pain nausea or vomiting, no diarrhea constipation, no urinary symptoms and no lower extremity edema.? On arrival to the ED patient hemodynamically stable with no significant abnormal vitals Labs are significant for WBC count of 11.2, creatinine of 1.83 which is slightly higher than his baseline of 0.9, ? head CT shows no evidence of acute intracranial hemorrhage or edematous territorial infarction this case was discussed with Neurology, who recommended admission for further evaluation Left side numbness similar presentation at [facility] in 2020, MRI negative; here in April - no sign of new stroke at that time. ct brain negative. left side numbness resolved and strength is equal bilaterally. PT/OT eval obtained? - no indication for services on discharge. he was continued on aspirin, statin, Eliquis. he was seen in consultation by neurology who did not feel that any inpatient work up was required. possible complicated migraine causing stroke like symptoms. can consider topiramate 25 mg at bedtime for migraine control. GI. unclear as creatinine went from .99 to 1.83 on the same day and then back down to 1.28. hold chlorthalidone for now as bp controlled without it. discuss with PCP need to resume. follow up renal function outpatient Time Spent with Patient Time attestation: Total time managing care of this patient today ____ minutes. Discharge coordination time: Greater than 30 minutes Quality: Safe Use of Opioids Does Pt have an Active Cancer Diagnosis on the Problem List?: No Quality: Stroke Does the patient have a stroke diagnosis?: No Physical Exam Vital Signs: Vital Signs: Last Vital Signs Temp 97.4 F 09/06/22 11:24 Pulse 62 09/06/22 11:24 Resp 20 09/06/22 11:24 BP 147/79 H 09/06/22 11:24 Pulse Ox 95 09/06/22 11:24 O2 Del Method Room Air 09/06/22 11:24 BMI result Body Mass Index 37.4 Const: General: cooperative, comfortable, no acute distress, awake and Physically active Nutritional Appearance: overweight Orientation/consciousness: patient oriented x3 Resp: Effort & Inspection: normal respiratory effort, able to speak in complete sentences and no respiratory distress Auscultation: clear to auscultation bilaterally Cardio: Rate: regular rate Heart sounds: S1 normal heart sound present and S2 normal heart sound present GI: Inspection: No distended Palpation (GI): Soft to palpation and nontender Neuro: Other: RUE and LUE strength equal General: patient oriented x3, moves all extremities and CN's II-XI intact bilaterally Cranial nerves: Yes Midline tongue present Extrem: General: Yes no pedal edema DS: Data Data Completed and Pending Labs on day of discharge: Laboratory Results - last 24 hr 09/05/22 09/05/22 09/06/22 15:54 20:04 07:48 POC Glucose 127 H 130 H 145 H 09/06/22 11:39 POC Glucose 157 H Discharge Plan Discharge Anticipated Discharge Date/Time: 09/06/22 12:05 Patient Disposition: Home, Self-Care Referrals: Hanna Wheat MD [Primary Care Provider] - 1 Week Discharge Medications: Continued Eliquis 5 mg tablet 5 mg PO BID 90 Days Qty: 180 3RF atorvastatin 80 mg tablet 1 tab PO BEDTIME fluticasone propionate [Flovent HFA] 110 mcg/actuation Hfa Aerosol Inhaler 1 puff INHALATION BID Rx Instructions: rinse mouth after use metoprolol tartrate 50 mg tablet 1.5 tab PO BID glipizide 10 mg tablet extended release 24hr 1 tab PO BID aspirin 81 mg Tablet,Delayed Release (Dr/Ec) 81 mg PO DAILY Qty: 30 0RF tamsulosin 0.4 mg Capsule 0.4 mg PO DAILY Qty: 30 0RF gabapentin 600 mg tablet 600 mg PO BID acetaminophen 650 mg tablet extended release 650 mg PO Q8H PRN (Reason: mild pain) baclofen 10 mg tablet 10 mg PO TID PRN (Reason: muscle spasm) lidocaine 5 % adhesive patch,medicated 1 - 2 patch topical DAILY PRN (Reason: Back Pain) diclofenac sodium 1 % gel 2 g topical QID PRN (Reason: pain) Jardiance 10 mg tablet 10 mg PO DAILY esomeprazole magnesium [Nexium] 40 mg capsule,delayed release(DR/EC) 40 mg PO DAILY@0630 niacin 500 mg tablet extended release 24 hr 500 mg PO BEDTIME amlodipine 10 mg tablet 10 mg PO DAILY fenofibrate 160 mg tablet 160 mg PO BEDTIME metformin 500 mg tablet 500 mg PO BID cholecalciferol (vitamin D3) 50 mcg (2,000 unit) capsule 50 mcg PO DAILY loratadine 10 mg tablet 10 mg PO DAILY Benefiber Clear SF (dextrin) 3 gram/3.5 gram powder in packet 1 packet PO DAILY Qty: 28 5RF Rx Instructions: mix into at least 4 oz water or juice before administering docusate sodium 100 mg capsule 200 mg PO BEDTIME Qty: 180 3RF Rx Instructions: irina dos capsula cada noche Trulicity 3 mg/0.5 mL pen injector 3 mg subcut FR@0900 fluticasone propionate 50 mcg/actuation spray,suspension 2 spray intranasal DAILY PRN (Reason: Allergic Symptoms) Rx Instructions: 1 spray into each nostril Creon 24,000-76,000 -120,000 unit capsule,delayed release(DR/EC) 1 cap PO QID Qty: 120 2RF Rx Instructions: administer with meals and/or snacks sucralfate 1 gram tablet 1 g PO BEDTIME Qty: 30 4RF ondansetron 4 mg tablet,disintegrating 4 mg PO Q8H PRN (Reason: nausea and vomiting) Qty: 20 0RF nitroglycerin 0.4 mg tablet, sublingual 0.4 mg sublingual Q5M PRN (Reason: Chest Pain) losartan 100 mg tablet 100 mg PO DAILY Held chlorthalidone 50 mg tablet 50 mg PO DAILY@1200 Hold Instructions: follow up with pcp Discharge Orders: Discharge Order (Routine); Ordered 09/06/22 Ordered By: Debbie Lora Activity on Discharge: As tolerated Stand Alone Forms: Patient Portal Discharge page Care Plan Goals: see below Health Concerns: no stroke possible migraine equivalent causing left side weakness Plan of Treatment: can consider topiramate 25 mg at night to assist with migraine - discuss with PCP hold chlorthalidone until follow up with PCP. blood pressure has been well controlled. Assessment: see discharge summary
--- NOTE | 2022-09-06 12:23 | MHC.CM.PN ---
EMR REVIEWED, PT MEDICALLY CLEARED FOR D/C HOME W/REUMP OF [employer], OT/PT HAVE EVALUATED AND NO SERVICES NEEDED, [employer] FOR TRANSPORT.
--- NOTE | 2022-09-06 13:14 | MHC.STROKE ---
[id number] BATISTA AND THE TEAM FOREMAN, I PROVIDED EDUCATION TO THE PATIENT REGARDING HIS RISK FACTORS AND MIGRAINE HISTORY. HE UNDERSTOOD AND APPRECIATED THE CONVERSATION.
== END 2022-09-06 13:21 | disposition home or self-care (01) ==
LOC: HO.ED 22:22 → HO.EDOVER 22:31 → HO.IMC 22:49
PROVIDERS: Admitting Provider Internal Medicine; Emergency Provider Student in an Organized Health Care Education/Training Program; PCP Internal Medicine; Visit Provider Physician Assistant Medical
DX: G43.109 Migraine with aura, not intractable, without status migrainosus (principal); N17.9 Acute kidney failure, unspecified; R29.818 Other symptoms and signs involving the nervous system; R06.02 Shortness of breath; R07.9 Chest pain, unspecified; M54.2 Cervicalgia; I69.354 Hemiplegia and hemiparesis following cerebral infarction affecting left non-dominant side; I10 Essential (primary) hypertension; R42 Dizziness and giddiness; I48.91 Unspecified atrial fibrillation; E11.9 Type 2 diabetes mellitus without complications; I25.10 Atherosclerotic heart disease of native coronary artery without angina pectoris; K21.9 Gastro-esophageal reflux disease without esophagitis; G40.909 Epilepsy, unspecified, not intractable, without status epilepticus; Z79.01 Long term (current) use of anticoagulants; Z79.899 Other long term (current) drug therapy
CPT/HCPCS: 36415; 70450; 71045; 80048; 80061; 82550; 82947; 84484; 85025; 85610; 85730; 93005; 94664; 96372; 97161; 97162; 97165; 99222; 99284

== ENCOUNTER 2022-09-11 09:09 | Outpatient (REF) | payer MEDICAID, SELFPAY | END 2022-09-11 09:10 | disposition home or self-care (01) | LOC: HO.LNP 09:09 | PROVIDERS: Visit Provider Nurse Practitioner Family | DX: Z11.2 Encounter for screening for other bacterial diseases (principal) | CPT/HCPCS: 87338 ==

== ENCOUNTER → 2022-09-12 09:38 | Outpatient (BNVA) | payer MEDICAID, SELFPAY | PROVIDERS: PCP Internal Medicine; Visit Provider Surgery | DX: K60.3 Anal fistula (principal) | CPT/HCPCS: 99212 ==

== ENCOUNTER 2022-09-17 10:28 | Outpatient (AMB) | payer MEDICAID, SELFPAY ==
[2022-09-17 10:33] VITALS: BP 129/68; PULSE 76; BMI 36.7
--- NOTE | 2022-09-17 10:33 | MHC.OFFVIS ---
Intake Vital Signs 09/17/22 10:33 Height 5 ft 9 in Weight 248 lb 10.903 oz BMI 36.7 BP 129/68 Blood Pressure Location Lt brachial Position Sitting Pulse 76 Intake Visit Reasons: 3 month follow up Intake Note: Brannon presents in office as a est.patient for a 2month f/u abdominal pain PT CC: pt reports having no concerns pt denies any other GI Issues Brand Attendant Required: No Accompanied by: Daughter Allergies Iodinated Contrast Media [IV CONTRAST] Allergy (Intermediate, Verified 09/17/22 10:35) Difficulty Breathing Penicillins Allergy (Mild, Verified 09/17/22 10:35) RASH Sulfa (Sulfonamide Antibiotics) Allergy (Mild, Verified 09/17/22 10:35) RASH codeine Adverse Reaction (Mild, Verified 09/17/22 10:35) STOMACH UPSET Docusate Calcium Allergy (Mild, Uncoded 09/17/22 10:35) rash HPI 3 month follow up HPI Details LAST VISIT: (1) RLQ abdominal pain: ?Code(s): R10.31 - Right lower quadrant pain ?Plan: Right lower quadrant abdominal discomfort.? Exam negative for any tenderness.? Will send patient for CT scan.? Will send patient for lab work.? History of appendectomy. (2) LLQ abdominal pain: ?Code(s): R10.32 - Left lower quadrant pain ?Plan: Left lower quadrant pain.? Patient will need to move his bowels better.? Will send for CT scan to rule out diverticulitis, colitis (3) Nausea & vomiting: ?Code(s): R11.2 - Nausea with vomiting, unspecified ?Qualifiers: ?Vomiting type:?unspecified? Qualified Code(s):?R11.2 - Nausea with vomiting, unspecified ?Plan: Continue avoiding dietary triggers.? Patient can start Nexium daily and sucralfate at bedtime.? Patient will get script for Zofran. (4) Postprandial abdominal bloating: ?Code(s): R14.0 - Abdominal distension (gaseous) ?Plan: Continue Creon.? Patient was instructed to making sure that he moves his bowels daily.? He can use MiraLax and senna if needed.? I will see him in 2 weeks, sooner on as needed basis.? Patient is agreeable to this plan and verbalizes understanding of instructions.? He was given the opportunity to ask questions and all questions answered.? TODAY'S VISIT Patient is here today for follow-up. Patient reports that he has been doing much better. Takes Nexium in the morning and sucralfate at bedtime. Patient states that his symptoms of acid reflux, dyspepsia are done. Patient denies any dysphagia or odynophagia. Patient reports that he is moving his bowels better. Takes stool softeners. Feels like empties his bowels completely. Patient is taking Creon with meals. Patient has scheduled ultrasound with elastography on the of this month. Patient is awaiting for his CT scan of the abdomen. Patient denies any melena, hematochezia, unintentional weight loss or ribbon like stools. [facility] Medical History Adhesive capsulitis of left shoulder Anal fistula Arthritis Asthma Atrial flutter CAD (coronary artery disease) Cellulitis Depression Diabetes GERD (gastroesophageal reflux disease) Gout History of panic attacks Hx of myocardial infarction Hypertension Low back pain Migraines Perianal abscess Scoliosis Seizures Tubular adenoma Surgical History H/O colonoscopy History of angioplasty History of appendectomy History of esophagogastroduodenoscopy (EGD) History of incision and drainage (~10/19/21) History of open heart surgery History of sinus surgery History of umbilical hernia repair Family History Father No problems noted. Mother History of stomach cancer History of liver cancer Brother No problems noted. 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 to a significant other at home: Yes (children) Do you presently have visiting nurse or other home services: No Alcohol intake: never Patient Tobacco Use Status: Never used Tobacco Advance Directives Date on File: 05/15/22 service: No Current occupational status: disabled Review of Systems Const Denies weight gain and Denies weight loss ENT Reports no additional complaints, Denies dysphagia and Denies odynophagia Card Reports no additional complaints Resp Reports no additional complaints GI Denies abdominal pain, Denies belching, Denies melena, Denies bloating, Denies change in bowel habits, Denies dysphagia, Denies excessive flatus, Denies dyspepsia, Denies heartburn, Denies diarrhea, Denies loose stools, Denies nausea, Denies odynophagia and Denies vomiting Reports no additional complaints Musc Reports no additional complaints Neuro Reports no additional complaints Psych Reports no additional complaints Endo Reports no additional complaints Physical Exam Vital Signs: Last Vital Signs Pulse 76 09/17/22 10:33 BP 129/68 09/17/22 10:33 BMI result Body Mass Index 36.7 Const General: healthy appearing, no acute distress and well developed Nutritional Appearance: obese Orientation/consciousness: patient oriented x3 HEENT Head: Yes normal to inspection, Yes normocephalic and Yes atraumatic Face and sinus: Yes normal facial exam Mouth: Normal oral and palatal mucosa present Throat: Yes posterior oropharynx normal, Yes tonsils normal and Yes uvula midline Eyes General: appearance normal, both eyes and all related structures Neck Neck: Yes normal visual inspection, Yes full ROM and Yes trachea midline Thyroid: Thyroid normal Resp Effort & Inspection: normal respiratory effort, able to speak in complete sentences, no tracheal deviation and symmetric chest movement Auscultation: clear to auscultation bilaterally Cardio Rate: regular rate Heart sounds: S1 normal heart sound present and S2 normal heart sound present GI Inspection: Yes normal to inspection, No distended and Yes obesity Palpation (GI): Soft to palpation, not firm, nontender and No hepatosplenomegaly present Auscultation: normal bowel sounds General: Yes no CVA tenderness Back/Spine/Pelvis Back: no CVA tenderness Skin General skin exam: elasticity normal, turgor normal and dry skin Neuro General: patient oriented x3 Psych Appearance: grossly normal Mental Status: mental status grossly normal Speech and movement: Normal speech and movement present Assessment & Plan Assessment & Plan (1) Gastroesophageal reflux disease: Code(s): K21.9 - Gastro-esophageal reflux disease without esophagitis Qualifiers: Esophagitis presence: without esophagitis Qualified Code(s): K21.9 - Gastro-esophageal reflux disease without esophagitis Plan: Continue current treatment with Nexium and sucralfate. Discussed with patient the importance of avoiding dietary triggers in late night snacking. Staying upright for minimum 3 hours after meals discussed with patient. (2) RLQ abdominal pain: Code(s): R10.31 - Right lower quadrant pain Plan: Occasional right lower quadrant pain, however patient states that is not as strong as couple weeks ago. Awaiting to get CT scan of abdomen. (3) LLQ abdominal pain: Code(s): R10.32 - Left lower quadrant pain Plan: Continue high-fiber diet. Patient was encouraged to increase fluid intake and activity to promote better bowel motility. Continue taking Colace 1-2 tablets every evening (4) Postprandial abdominal bloating: Code(s): R14.0 - Abdominal distension (gaseous) Plan: Occasional postprandial abdominal bloating. Low FODMAP diet discussed with patient. Went over with patient again about recommendations. I will see patient in 2 months, sooner on as needed basis. Patient is agreeable to this plan and verbalizes understanding of instructions. He was given the opportunity to ask questions and all questions answered. Thank you for allowing me to participate in his care Medications: Refilled docusate sodium irina dos capsula cada noche 200 mg (2 x 100 mg) PO BEDTIME 180 caps 3RF K59.00 - Constipation, unspecified Discontinued esomeprazole magnesium 40 mg PO DAILY 30 caps 5RF K21.9 - Gastro-esophageal reflux disease without esophagitis Coding Level of Care Code Est Pt Level 3 (17119) Diagnoses Gastroesophageal reflux disease K21.9 Esophagitis presence: without esophagitis RLQ abdominal pain R10.31 LLQ abdominal pain R10.32 Postprandial abdominal bloating R14.0 Time Spent (min) 30 Comment 20 minutes spent with patient and additional 10 minutes spent reviewing his records
== END 2022-09-17 11:05 | disposition home or self-care (01) ==
PROVIDERS: Visit Provider Nurse Practitioner Family
DX: K21.9 Gastro-esophageal reflux disease without esophagitis (principal); R10.31 Right lower quadrant pain; R10.32 Left lower quadrant pain; R14.0 Abdominal distension (gaseous)
CPT/HCPCS: 99213

== ENCOUNTER → 2022-09-17 10:28 | Outpatient (BNVA) | payer MEDICAID, SELFPAY | PROVIDERS: Visit Provider Nurse Practitioner Family | DX: K21.9 Gastro-esophageal reflux disease without esophagitis (principal); R10.31 Right lower quadrant pain; R10.32 Left lower quadrant pain; R14.0 Abdominal distension (gaseous) | CPT/HCPCS: 99213 ==

== ENCOUNTER 2022-09-23 09:51 | Outpatient (REF) | payer MEDICAID, SELFPAY ==
--- NOTE | ~2022-09-23 | US_ITS ---
EXAMINATION: US COMPLETE ABDOMEN WITH LIVER ELASTOGRAPHY CLINICAL INFORMATION: Abnormal LFTs. COMPARISON: None available. TECHNIQUE: Real-time imaging of the abdominal viscera. Noninvasive ultrasound liver fibrosis assessment is performed using Javy ElastPQ point quantification shear wave elastography (2D-SWE) with a C5-2 MHz transducer. Multiple elastography samples are obtained. FINDINGS: PANCREAS: The visualized pancreatic head and body are normal in appearance. The remainder of the pancreas is obscured from visualization by the overlying bowel gas. ABDOMINAL AORTA: The proximal, middle, and distal aortic segments are normal in caliber. INFERIOR VENA CAVA: Visualized portions are normal. LIVER: The liver demonstrates normal size, contour and diffusely echogenic. No focal lesion or intrahepatic biliary duct dilatation. The right lobe measures 23.2 cm in length. The left lobe measures 14.0 cm in length. Portal flow is hepatopedal Shear wave liver elastography median stiffness is 1.65 m/s (reference: normal median stiffness is 1.3 m/s or less). IQR/median stiffness to assess sampling precision is 0.10 (reference: good quality data set is IQR/median stiffness of 0.15 or less). GALLBLADDER: Normal. The gallbladder is physiologically distended without evidence of stones, sludge, polyps, wall thickening or pericholecystic fluid. COMMON BILE DUCT: Normal in caliber measuring 0.4 cm in diameter. RIGHT KIDNEY: There is anechoic cyst in midpole measuring 2.4 x 2.4 x 3.1 cm. No hydronephrosis. No echogenic renal calculi seen.. The kidney measures 13.3 cm in maximum dimension. LEFT KIDNEY: There is a hypertrophic column of [place] knee. No hydronephrosis. No renal calculi or focal parenchymal lesions. The kidney measures 12.5 cm in maximum dimension. SPLEEN: Normal. The spleen measures 10.9 cm in maximum dimension. FREE FLUID: None. US/US abdomen comp w elastography IMPRESSION: 1. Mild hepatomegaly with hepatic steatosis. Graft right renal cysts. Hypertrophic: Vertebral left kidney. 2. Liver elastography: Median liver stiffness measures 1.65 m/s which corresponds to cACLD ruled out. REFERENCE: Society of Radiologists in Ultrasound Liver Stiffness Thresholds (2019): LIVER STIFFNESS THRESHOLDS: *Liver Stiffness equal or less than 1.3 m/s: High probability of being normal. *Liver Stiffness less than 1.7 m/s: In the absence of other known clinical signs, rules out compensated advanced chronic liver disease. *Liver Stiffness 1.7-2.1 m/s: Suggestive of compensated advanced chronic liver disease but need further test for confirmation. *Liver Stiffness over 2.1 m/s: Rules in compensated advanced chronic liver disease. *Liver Stiffness over 2.4 m/s: Suggestive of clinically significant portal hypertension. QUALITY OF DATA SET: *IQR/Median value equal or less than 0.15 implies a quality data set. *IQR/Median value over 0.15 implies a poor quality data set. SIGNIFICANT CHANGE FROM PRIOR EXAM: Significant change if liver stiffness measurement is 10% or greater from prior exam. OTHER CONSIDERATIONS: The stage of liver fibrosis may be overestimated in the setting of acute hepatitis, liver inflammation, elevated liver function tests, hepatic vascular congestion, obstructive cholestasis, non-fasting state, and infiltrative diseases such as amyloidosis and lymphoma. In some patients with NAFLD, the liver stiffness thresholds for compensated advanced chronic liver disease may be lower. In causes other than viral hepatitis and NAFLD, liver stiffness thresholds are not well established.
== END 2022-09-23 09:52 | disposition home or self-care (01) ==
LOC: HO.US 09:51
PROVIDERS: PCP Internal Medicine; Visit Provider Nurse Practitioner Family
DX: R79.89 Other specified abnormal findings of blood chemistry (principal)
CPT/HCPCS: 76705; 76981

== ENCOUNTER 2022-10-28 07:32 | Outpatient (REF) | payer MEDICAID, SELFPAY ==
--- NOTE | ~2022-10-28 | CT_ITS ---
EXAMINATION: CT ABDOMEN AND PELVIS WITHOUT CONTRAST CLINICAL INFORMATION: Right lower quadrant pain COMPARISON: Abdominal ultrasound September [address] of the abdomen and pelvis April 2022 TECHNIQUE: Multidetector volumetric imaging was performed from the superior aspect of the liver through the pubic symphysis. Sagittal and coronal reformatted images were obtained on the technologist's workstation. This CT examination was performed using dose optimization techniques as appropriate, variously including the following: *Automated exposure control *Adjustment of mA and/or kV according to patient size (this includes techniques or standardized protocols for targeted exams where dose is matched to indication/reason for exam; i.e. extremities or head) *Use of iterative reconstruction technique DLP: 716 mGy-cm FINDINGS: LUNG BASES: The visualized lung bases are unremarkable. LIVER, GALLBLADDER, AND BILIARY TREE: The liver is normal in contour. The liver slightly enlarged, right lobe measuring 20.7 cm in length. No focal hepatic lesion or biliary ductal dilatation is present. The gallbladder is unremarkable with no evidence of radiopaque gallstones, gallbladder wall thickening, or obvious pericholecystic inflammatory changes. PANCREAS: Unremarkable. SPLEEN: Unremarkable. ADRENAL GLANDS: Unremarkable. KIDNEYS AND URETERS: The kidneys are normal in size, shape, and attenuation. No hydronephrosis, hydroureter, or calculi seen. No perinephric stranding. 2 cm right renal cyst. No imaging follow-up recommended. BLADDER: Unremarkable. GASTROINTESTINAL TRACT: The small and large bowel are unremarkable. The appendix is not seen. No inflammatory changes in the right lower quadrant. ABDOMINAL WALL: Small bilateral inguinal hernias containing fat. LYMPH NODES: Small retroperitoneal lymph nodes. No enlarged nodes. VASCULAR: Atherosclerotic disease. No aneurysm. PELVIC VISCERA: Unremarkable. OSSEOUS STRUCTURES: Degenerative changes of the spine. CT/CT abdomen pelvis wo IV con IMPRESSION: No acute findings. Appendix not identified with certainty. No inflammatory changes in the right lower quadrant. Fleischner guidelines were followed.
[2022-10-28] MEDS: Barium Sulfate Oral (Mocha) 450 ML ORAL.SUSP 900 ML PO (12:13)
== END 2022-10-28 07:33 | disposition home or self-care (01) ==
LOC: HO.CT 07:32
PROVIDERS: PCP Internal Medicine; Visit Provider Nurse Practitioner Family
DX: R10.31 Right lower quadrant pain (principal); R10.32 Left lower quadrant pain; R11.2 Nausea with vomiting, unspecified
CPT/HCPCS: 74176

== ENCOUNTER 2022-11-04 12:43 | Outpatient (AMB) | payer MEDICAID, SELFPAY ==
--- NOTE | 2022-11-04 12:49 | A.OFFVIS_ITS ---
Intake Vital Signs 11/04/22 12:54 Height 5 ft 9 in Weight 250 lb BMI 36.9 Intake Visit Reasons: one month follow-up seton Intake Note: This patient presents for a one month follow-up assessment for seton. Patient c/o; reports no changes at this time. Sheeter Operator Required: Yes Sheeter Operator Language: Lithuanian Information Interpreted: non-clinical & clinical Accompanied by: Self / Same As Patient Allergies Iodinated Contrast Media [IV CONTRAST] Allergy (Intermediate, Verified 11/04/22 12:55) Difficulty Breathing Penicillins Allergy (Mild, Verified 11/04/22 12:55) RASH Sulfa (Sulfonamide Antibiotics) Allergy (Mild, Verified 11/04/22 12:55) RASH codeine Adverse Reaction (Mild, Verified 11/04/22 12:55) STOMACH UPSET Docusate Calcium Allergy (Mild, Uncoded 11/04/22 12:55) rash Medication List - Last Reconciled 11/04/22 by Cristian Shah MD acetaminophen ER 650 mg PO Q8H PRN amlodipine 10 mg PO DAILY apixaban (Eliquis) 5 mg PO BID 90 days aspirin 81 mg PO DAILY atorvastatin 1 tab PO BEDTIME baclofen 10 mg PO TID PRN chlorthalidone 50 mg PO DAILY@1200 cholecalciferol (vitamin D3) 50 mcg PO DAILY diclofenac sodium 1% 2 grams topical QID PRN docusate sodium 200 mg (2 x 100 mg) PO BEDTIME dulaglutide (Trulicity) 3 mg subcut FR@0900 empagliflozin (Jardiance) 10 mg PO DAILY esomeprazole magnesium (Nexium) 40 mg PO DAILY@0630 fenofibrate 160 mg PO BEDTIME fluticasone propionate 110 mcg/actuation (Flovent HFA) 1 puff inhalation BID fluticasone propionate 50 mcg/actuation 2 sprays intranasal DAILY PRN gabapentin 600 mg PO BID glipizide ER 1 tab PO BID lidocaine 5% 1 - 2 patches topical DAILY PRN [id number] 24,000-76,000 -120,000 unit (Creon) 1 cap PO QID loratadine 10 mg PO DAILY losartan 100 mg PO DAILY metformin 500 mg PO BID metoprolol tartrate 1.5 tabs PO BID niacin ER 500 mg PO BEDTIME nitroglycerin 0.4 mg sublingual Q5M PRN ondansetron 4 mg PO Q8H PRN sucralfate 1 g PO BEDTIME tamsulosin 0.4 mg PO DAILY wheat dextrin (Benefiber Clear Sugar Free(dextrin)) 1 packet PO DAILY HPI one month follow-up seton HPI Details He is here for follow-up for his anal fistula with a seton in place. He denies any new drainage. He says he is doing well overall [facility] Medical History Adhesive capsulitis of left shoulder Anal fistula Arthritis Asthma Atrial flutter CAD (coronary artery disease) Cellulitis Depression Diabetes GERD (gastroesophageal reflux disease) Gout History of panic attacks Hx of myocardial infarction Hypertension Low back pain Migraines Perianal abscess Scoliosis Seizures Tubular adenoma Surgical History H/O colonoscopy History of angioplasty History of appendectomy History of esophagogastroduodenoscopy (EGD) History of incision and drainage (~10/19/21) History of open heart surgery History of sinus surgery History of umbilical hernia repair Family History Father No problems noted. Mother History of stomach cancer History of liver cancer Brother No problems noted. 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 health care / medical job titles to a significant other at home: Yes (children) Do you presently have visiting nurse or other home services: No Alcohol intake: never Patient Tobacco Use Status: Never used Tobacco Advance Directives Date on File: 05/15/22 service: No Current occupational status: disabled Review of Systems Const Denies chills and Denies fever(s) Card Denies chest pain, Denies dyspnea and Denies dyspnea on exertion Resp Denies cough, Denies dyspnea and Denies dyspnea on exertion GI Denies hematochezia and Denies change in bowel habits Denies hematuria and Denies difficulty urinating Musc Denies back pain and Denies limited range of motion Neuro Denies focal weakness and Denies convulsions Psych Denies depression and Denies mood swings Physical Exam Vital Signs: BMI result Body Mass Index 36.9 Const General: comfortable and no acute distress Resp Effort & Inspection: normal respiratory effort GI Other: Rectal exam shows the seton to be in place, with a short residual fistula tract, on the right side, no new induration, no active discharge Assessment & Plan Assessment & Plan (1) Anal fistula: Code(s): K60.3 - Anal fistula Plan: Seton in place. I was able to tighten the seton some more using a silk 2 0 tie to make this snug around the remaining fistula tract. The remaining fistula tract is now very short. I am hopeful that this will cut through completely soon. I will see him again in the office in about a month. Medications: Discontinued esomeprazole magnesium 40 mg PO DAILY 30 caps 5RF K21.9 - Gastro-esophageal reflux disease without esophagitis Coding Level of Care Code Est Pt Level 3 (73943) Diagnoses Anal fistula K60.3
[2022-11-04 12:54] VITALS: BMI 36.9
== END 2022-11-04 13:09 | disposition home or self-care (01) ==
PROVIDERS: PCP Internal Medicine; Visit Provider Surgery
DX: K60.3 Anal fistula (principal)
CPT/HCPCS: 99213

== ENCOUNTER → 2022-11-04 12:43 | Outpatient (BNVA) | payer MEDICAID, SELFPAY | PROVIDERS: PCP Internal Medicine; Visit Provider Surgery | DX: K60.3 Anal fistula (principal) | CPT/HCPCS: 99212 ==

== ENCOUNTER 2022-11-19 10:32 | Outpatient (AMB) | payer MEDICAID, SELFPAY ==
--- NOTE | 2022-11-19 10:34 | MHC.OFFVIS ---
Intake Vital Signs 11/19/22 10:37 Height 5 ft 9 in Weight 251 lb 5.231 oz BMI 37.1 BP 184/97 H Blood Pressure Location Lt brachial Position Sitting Pulse 77 Intake Visit Reasons: 2 mnth follow up Intake Note: Brannon presents in the office as a 2 month follow up. CC: He states that he is having pains in his stomach. His BP was higher but he states he does take his meds but there is a pain in the pit of his stomach that he feels is due to a medication that he is taking. Orchestra Conductor Required: Yes Orchestra Conductor Name: Nehemias [id number] Allergies Iodinated Contrast Media [IV CONTRAST] Allergy (Intermediate, Verified 11/19/22 10:39) Difficulty Breathing Penicillins Allergy (Mild, Verified 11/19/22 10:39) RASH Sulfa (Sulfonamide Antibiotics) Allergy (Mild, Verified 11/19/22 10:39) RASH codeine Adverse Reaction (Mild, Verified 11/19/22 10:39) STOMACH UPSET Docusate Calcium Allergy (Mild, Uncoded 11/19/22 10:39) rash HPI 2 mnth follow up HPI Details LAST VISIT Gastroesophageal reflux disease Continue current treatment with Nexium and sucralfate. Discussed with patient the importance of avoiding dietary triggers in late night snacking. Staying upright for minimum 3 hours after meals discussed with patient. RLQ abdominal pain Occasional right lower quadrant pain, however patient states that is not as strong as couple weeks ago. Awaiting to get CT scan of abdomen. LLQ abdominal pain Continue high-fiber diet. Patient was encouraged to increase fluid intake and activity to promote better bowel motility. Continue taking Colace 1-2 tablets every evening Postprandial abdominal bloating Occasional postprandial abdominal bloating. Low FODMAP diet discussed with patient. Went over with patient again about recommendations. I will see patient in 2 months, sooner on as needed basis. Patient is agreeable to this plan and verbalizes understanding of instructions. He was given the opportunity to ask questions and all questions answered. TODAY'S VISIT Patient is here today for follow-up. Patient reports that in the last couple weeks he has been having epigastric discomfort postprandially. Patient feels epigastric pain sometimes all the time. Patient is feeling very nauseous. Occasional vomiting. Reports that he takes Zofran, however still having nausea. Patient is taking sucralfate at night time. Does not believe that it is helping him. Patient is Creon with meals. Patient reports that he is taking his medications 4 times a day. His medications are given to him in the bubble repacked or ready. Patient reports that he is taking about 9 medications in the morning 1 at noon time couple at 02:00 o'clock and you at night time. Will have RN call the pharmacy and request to separate all the medications that are given to patient in this office and patient needs to taking as prescribed. Patient should be taking Creon with meals only. Next him in the morning half an hour before breakfast and sucralfate at bedtime. Patient is not moving his bowels completely. Sometimes no bowel movement for day or 2. When he empty the his bowels he does not feel like he empties them completely. Patient denies any fever or chills. CT scan of abdomen and pelvis done on October 28 and did not show any acute processes. [facility] Medical History Anal fistula Low back pain Perianal abscess History of panic attacks Hx of myocardial infarction Arthritis GERD (gastroesophageal reflux disease) Scoliosis Asthma Tubular adenoma Migraines Gout Seizures Depression Hypertension Diabetes Adhesive capsulitis of left shoulder Atrial flutter CAD (coronary artery disease) Cellulitis Surgical History History of incision and drainage (~10/19/21) History of umbilical hernia repair History of esophagogastroduodenoscopy (EGD) H/O colonoscopy History of open heart surgery History of sinus surgery History of appendectomy History of angioplasty Family History Father No problems noted. Mother History of stomach cancer History of liver cancer Brother No problems noted. 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 summer child caregiver to a significant other at home: Yes (children) Do you presently have visiting nurse or other home services: No Alcohol intake: never Patient Tobacco Use Status: Never used Tobacco Advance Directives Date on File: 05/15/22 service: No Current occupational status: disabled Review of Systems Const Denies weight gain and Denies weight loss ENT Reports no additional complaints, Denies dysphagia and Denies odynophagia Card Reports no additional complaints Resp Reports no additional complaints GI Reports abdominal pain, Denies belching, Denies melena, Denies bloating, Denies change in bowel habits, Reports constipation, Denies dysphagia, Denies excessive flatus, Denies dyspepsia, Denies heartburn, Denies diarrhea, Denies loose stools, Denies nausea, Denies odynophagia and Denies vomiting Reports no additional complaints Musc Reports no additional complaints Neuro Reports no additional complaints Psych Reports no additional complaints Endo Reports no additional complaints Physical Exam Vital Signs: Last Vital Signs Pulse 77 11/19/22 10:37 BP 184/97 H 11/19/22 10:37 BMI result Body Mass Index 37.1 Const General: healthy appearing, no acute distress and well developed Nutritional Appearance: obese Orientation/consciousness: patient oriented x3 HEENT Head: Yes normal to inspection, Yes normocephalic and Yes atraumatic Face and sinus: Yes normal facial exam Mouth: Normal oral and palatal mucosa present Throat: Yes posterior oropharynx normal, Yes tonsils normal and Yes uvula midline Eyes General: appearance normal, both eyes and all related structures Neck Neck: Yes normal visual inspection, Yes full ROM and Yes trachea midline Thyroid: Thyroid normal Resp Effort & Inspection: normal respiratory effort, able to speak in complete sentences, no tracheal deviation and symmetric chest movement Auscultation: clear to auscultation bilaterally Cardio Rate: regular rate Heart sounds: S1 normal heart sound present and S2 normal heart sound present GI Inspection: Yes normal to inspection, No distended and Yes obesity Palpation (GI): Soft to palpation, not firm, nontender and No hepatosplenomegaly present Auscultation: normal bowel sounds General: Yes no CVA tenderness Back/Spine/Pelvis Back: no CVA tenderness Skin General skin exam: elasticity normal, turgor normal and dry skin Neuro General: patient oriented x3 Psych Appearance: grossly normal Mental Status: mental status grossly normal Speech and movement: Normal speech and movement present Results Reviewed Results Reviewed: CT OF ABDOMEN AND PELVIS 10/28/2022 FINDINGS: LUNG BASES: The visualized lung bases are unremarkable. LIVER, GALLBLADDER, AND BILIARY TREE: The liver is normal in contour. The liver slightly enlarged, right lobe measuring 20.7 cm in length. No focal hepatic lesion or biliary ductal dilatation is present. The gallbladder is unremarkable with no evidence of radiopaque gallstones, gallbladder wall thickening, or obvious pericholecystic inflammatory changes. PANCREAS: Unremarkable. SPLEEN: Unremarkable. ADRENAL GLANDS: Unremarkable. KIDNEYS AND URETERS: The kidneys are normal in size, shape, and attenuation. No hydronephrosis, hydroureter, or calculi seen. No perinephric stranding. 2 cm right renal cyst. No imaging follow-up recommended. BLADDER: Unremarkable. GASTROINTESTINAL TRACT: The small and large bowel are unremarkable. The appendix is not seen. No inflammatory changes in the right lower quadrant. ABDOMINAL WALL: Small bilateral inguinal hernias containing fat. LYMPH NODES: Small retroperitoneal lymph nodes. No enlarged nodes. VASCULAR: Atherosclerotic disease. No aneurysm. PELVIC VISCERA: Unremarkable. OSSEOUS STRUCTURES: Degenerative changes of the spine. CT/CT abdomen pelvis wo IV con IMPRESSION: No acute findings. Appendix not identified with certainty. No inflammatory changes in the right lower quadrant. Assessment & Plan Assessment & Plan (1) Gastroesophageal reflux disease: Code(s): K21.9 - Gastro-esophageal reflux disease without esophagitis Qualifiers: Esophagitis presence: without esophagitis Qualified Code(s): K21.9 - Gastro-esophageal reflux disease without esophagitis Plan: Continue Nexium in the morning half an hour before breakfast. Will increase his sucralfate to twice a day. Patient was encouraged to avoid dietary triggers and late night snacking. Staying upright for minimum 3 hours after meals discussed with patient. (2) RLQ abdominal pain: Code(s): R10.31 - Right lower quadrant pain Plan: This no tenderness on exam. Patient has hyperactive bowel sounds. Normal CT scan. Possible that patient's pain is related to gas trapping causing cramping. Patient is constipated will send rib for Linzess. (3) LLQ abdominal pain: Code(s): R10.32 - Left lower quadrant pain (4) Postprandial abdominal bloating: Code(s): R14.0 - Abdominal distension (gaseous) Plan: Low FODMAP diet discussed with patient (5) Epigastric pain: Code(s): R10.13 - Epigastric pain Plan: Patient reports epigastric discomfort postprandially. Feeling nauseous. Patient reports feeling flu. Will send him for gastric emptying study. I will see patient in 5 weeks, sooner on as needed basis. Patient is agreeable to this plan and verbalizes understanding of instructions. He was given the opportunity to ask questions and all questions answered. Thank you for allowing me to participate in his care Orders: Orders NM gastric emptying study Today K21.9 - Gastro-esophageal reflux disease without esophagitis, R10.13 - Epigastric pain Medications: New linaclotide (Linzess) 145 mcg PO DAILY 30 caps 2RF Changed From sucralfate 1 g PO BEDTIME 30 tabs 4RF R19.7 - Diarrhea, unspecified To sucralfate 1 g PO BID 60 tabs 4RF R19.7 - Diarrhea, unspecified Coding Level of Care Code Est Pt Level 4 (39850) Diagnoses Gastroesophageal reflux disease without esophagitis K21.9 Esophagitis presence: without esophagitis RLQ abdominal pain R10.31 LLQ abdominal pain R10.32 Postprandial abdominal bloating R14.0 Epigastric pain R10.13 Time Spent (min) 40 Comment 25 minutes spent with patient and additional 15 minutes spent reviewing his records
[2022-11-19 10:37] VITALS: BP 184/97; PULSE 77; BMI 37.1
== END 2022-11-19 11:32 | disposition home or self-care (01) ==
PROVIDERS: PCP Internal Medicine; Visit Provider Nurse Practitioner Family
DX: K21.9 Gastro-esophageal reflux disease without esophagitis (principal); R10.31 Right lower quadrant pain; R10.32 Left lower quadrant pain; R14.0 Abdominal distension (gaseous); R10.13 Epigastric pain
CPT/HCPCS: 99214

== ENCOUNTER → 2022-11-19 10:32 | Outpatient (BNVA) | payer MEDICAID, SELFPAY | PROVIDERS: PCP Internal Medicine; Visit Provider Nurse Practitioner Family | DX: K21.9 Gastro-esophageal reflux disease without esophagitis (principal); R10.31 Right lower quadrant pain; R10.32 Left lower quadrant pain; R14.0 Abdominal distension (gaseous); R10.13 Epigastric pain | CPT/HCPCS: 99212 ==

== ENCOUNTER 2022-12-12 10:20 | Outpatient (AMB) | payer MEDICAID, SELFPAY ==
--- NOTE | 2022-12-12 10:32 | MHC.OFFVIS ---
Intake Vital Signs 12/12/22 10:38 Height 5 ft 9 in Weight 250 lb BMI 36.9 BP 175/99 H Blood Pressure Location Rt radial Position Sitting Pulse 80 Intake Visit Reasons: 1 mth follow up seton Intake Note: This patient presents for a one month follow-up for seton. Patient c/o; reports no changes. Plasma Table Operator Required: Yes Plasma Table Operator Language: Manufacturing Plant Manager Name: Cathleen Information Interpreted: non-clinical & clinical Accompanied by: Self / Same As Patient Allergies Iodinated Contrast Media [IV CONTRAST] Allergy (Intermediate, Verified 12/12/22 10:39) Difficulty Breathing Penicillins Allergy (Mild, Verified 12/12/22 10:39) RASH Sulfa (Sulfonamide Antibiotics) Allergy (Mild, Verified 12/12/22 10:39) RASH codeine Adverse Reaction (Mild, Verified 12/12/22 10:39) STOMACH UPSET Docusate Calcium Allergy (Mild, Uncoded 12/12/22 10:39) rash Medication List - Last Reconciled 12/12/22 by Cristian Shah MD acetaminophen ER 650 mg PO Q8H PRN amlodipine 10 mg PO DAILY apixaban (Eliquis) 5 mg PO BID 90 days aspirin 81 mg PO DAILY atorvastatin 1 tab PO BEDTIME baclofen 10 mg PO TID PRN chlorthalidone 50 mg PO DAILY@1200 cholecalciferol (vitamin D3) 50 mcg PO DAILY diclofenac sodium 1% 2 grams topical QID PRN docusate sodium 200 mg (2 x 100 mg) PO BEDTIME dulaglutide (Trulicity) 3 mg subcut FR@0900 empagliflozin (Jardiance) 10 mg PO DAILY esomeprazole magnesium (Nexium) 40 mg PO DAILY@0630 fenofibrate 160 mg PO BEDTIME fluticasone propionate 110 mcg/actuation (Flovent HFA) 1 puff inhalation BID fluticasone propionate 50 mcg/actuation 2 sprays intranasal DAILY PRN gabapentin 600 mg PO BID glipizide ER 1 tab PO BID lidocaine 5% 1 - 2 patches topical DAILY PRN linaclotide (Linzess) 145 mcg PO DAILY [id number]-qttemxsy-nzfcxuz 24,000-76,000 -120,000 unit (Creon) 1 cap PO QID loratadine 10 mg PO DAILY losartan 100 mg PO DAILY metformin 500 mg PO BID metoprolol tartrate 1.5 tabs PO BID niacin ER 500 mg PO BEDTIME nitroglycerin 0.4 mg sublingual Q5M PRN ondansetron 4 mg PO Q8H PRN sucralfate 1 g PO BID tamsulosin 0.4 mg PO DAILY wheat dextrin (Benefiber Clear Sugar Free(dextrin)) 1 packet PO DAILY HPI 1 mth follow up seton HPI Details He states that his seton has fallen a few weeks ago. He denies any new swelling or discharge. He says he feels well overall. [facility] Medical History Anal fistula Low back pain Perianal abscess History of panic attacks Hx of myocardial infarction Arthritis GERD (gastroesophageal reflux disease) Scoliosis Asthma Tubular adenoma Migraines Gout Seizures Depression Hypertension Diabetes Adhesive capsulitis of left shoulder Atrial flutter CAD (coronary artery disease) Cellulitis Surgical History History of incision and drainage (~10/19/21) History of umbilical hernia repair History of esophagogastroduodenoscopy (EGD) H/O colonoscopy History of open heart surgery History of sinus surgery History of appendectomy History of angioplasty Family History Father No problems noted. Mother History of stomach cancer History of liver cancer Brother No problems noted. 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 care nurse rn to a significant other at home: Yes (children) Do you presently have visiting nurse or other home services: No Alcohol intake: never Patient Tobacco Use Status: Never used Tobacco Advance Directives Date on File: 05/15/22 service: No Current occupational status: disabled Review of Systems Const Denies chills and Denies fever(s) Card Denies chest pain, Denies dyspnea and Denies dyspnea on exertion Resp Denies cough, Denies dyspnea and Denies dyspnea on exertion GI Denies hematochezia and Denies change in bowel habits Denies hematuria and Denies difficulty urinating Musc Denies back pain and Denies limited range of motion Neuro Denies focal weakness and Denies convulsions Psych Denies depression and Denies mood swings Physical Exam Vital Signs: Last Vital Signs Pulse 80 12/12/22 10:38 BP 175/99 H 12/12/22 10:38 BMI result Body Mass Index 36.9 Const General: comfortable and no acute distress Resp Effort & Inspection: normal respiratory effort GI Other: Rectal exam shows that the seton is no longer in place. There is no obvious residual fistula tract. There is no swelling, sinus or induration Palpation (GI): Soft to palpation, not firm and nontender Assessment & Plan Assessment & Plan (1) Anal fistula: Code(s): K60.3 - Anal fistula Plan: He has a seton in place that has cut through completely. He denies any new complaints. There is no residual fistula tract. There is no sinus or induration He can therefore follow up on a p.r.n. basis. Coding Level of Care Code Est Pt Level 2 (43587) Diagnoses Anal fistula K60.3
[2022-12-12 10:38] VITALS: BP 175/99; PULSE 80; BMI 36.9
== END 2022-12-12 10:57 | disposition home or self-care (01) ==
PROVIDERS: PCP Internal Medicine; Visit Provider Surgery
DX: K60.3 Anal fistula (principal)
CPT/HCPCS: 99212

== ENCOUNTER → 2022-12-12 10:20 | Outpatient (BNVA) | payer MEDICAID, SELFPAY | PROVIDERS: PCP Internal Medicine; Visit Provider Surgery | DX: Z48.815 Encounter for surgical aftercare following surgery on the digestive system (principal); Z87.19 Personal history of other diseases of the digestive system | CPT/HCPCS: 99212 ==

== ENCOUNTER 2022-12-25 08:59 | Outpatient (REF) | payer MEDICAID, SELFPAY ==
--- NOTE | 2022-12-25 09:03 | EMG_ITS ---
Please see scanned EMG / Nerve Conduction Report. MTDD
== END 2022-12-25 09:00 | disposition home or self-care (01) ==
LOC: HO.NEURO 08:59
PROVIDERS: Visit Provider Family Medicine
DX: M79.641 Pain in right hand (principal); M79.642 Pain in left hand
CPT/HCPCS: 95885; 95913

== ENCOUNTER → 2022-12-26 07:46 | Outpatient (REF) | payer MEDICAID, SELFPAY ==
--- NOTE | ~2022-12-26 | NM_ITS ---
EXAMINATION: RADIONUCLIDE SOLID FOOD GASTRIC EMPTYING 4-HOUR STUDY CLINICAL INFORMATION: Gastroesophageal reflux disease without esophagitis. COMPARISON: No previous gastric emptying study is available for comparison. TECHNIQUE: A standard meal consisting of 4 oz of Egg Beaters brand equivalent tagged with 1 mCi Tc-99m Sulfur Colloid, 8 oz water and 2 slices of toast with jelly was administered orally to the patient. Images were obtained using a dual head gamma camera in the anterior and posterior projections over of the stomach immediately post ingestion and at hourly intervals up to 4 hours post ingestion. The anterior and posterior counts at each time interval were averaged using the geometric mean and expressed as percentage of the immediate post ingestion counts. FINDINGS: There is good visualization of activity in the stomach immediately post ingestion. As the study progresses, there is only fair clearance of activity from the stomach and visualization of progressively increasing small bowel activity. At the end of the study there is moderately severe abnormal retention of activity in the stomach at 4 hours. Retention in the stomach at each time interval was: 1 hour 83% (normal 37%-90%) 2 hours 81% (normal 30%-60%) 3 hours 76% 4 hours 35% (normal 0%-10%) NM/NM gastric emptying study IMPRESSION: Abnormal study. There is moderately severe abnormal retention of solid food in the stomach at 4 hours. Gastric emptying study grading per JNMT Consensus Recommendations in 2008: https://tech.snmjournals.org/content/36//44 Grade 1 (mild retention): 11-20% at 4h Grade 2 (moderate retention): 21-35% at 4h Grade 3 (severe retention): 36-50% at 4h Grade 4 (very severe retention): >50% retention at 4h
== END ==
LOC: HO.NUCMED 07:46
PROVIDERS: Visit Provider Nurse Practitioner Family
DX: R10.13 Epigastric pain (principal); K21.9 Gastro-esophageal reflux disease without esophagitis
CPT/HCPCS: 78264; A9541

== ENCOUNTER 2022-12-30 09:16 | Outpatient (AMB) | payer MEDICAID, SELFPAY ==
--- NOTE | 2022-12-30 09:24 | A.OFFVIS_ITS ---
Intake Vital Signs 12/30/22 09:25 Height 5 ft 9 in Weight 252 lb 3.341 oz BMI 37.2 BP 134/68 Blood Pressure Location Lt brachial Position Sitting Pulse 81 Intake Visit Reasons: 6 month f/u Intake Note: 6 month follow up Electronic Data Interchange Specialist Required: Yes Electronic Data Interchange Specialist Language: Residential Program Worker Name: [id number] Adebayo Accompanied by: Self / Same As Patient Allergies Iodinated Contrast Media [IV CONTRAST] Allergy (Intermediate, Verified 12/30/22 09:26) Difficulty Breathing Penicillins Allergy (Mild, Verified 12/30/22 09:26) RASH Sulfa (Sulfonamide Antibiotics) Allergy (Mild, Verified 12/30/22 09:26) RASH codeine Adverse Reaction (Mild, Verified 12/30/22 09:26) STOMACH UPSET Docusate Calcium Allergy (Mild, Uncoded 12/30/22 09:26) rash Medication List - Last Reconciled 12/30/22 by Rajiv Jean MD acetaminophen ER 650 mg PO Q8H PRN amlodipine 10 mg PO DAILY apixaban (Eliquis) 5 mg PO BID 90 days aspirin 81 mg PO DAILY atorvastatin 80 mg PO BEDTIME cholecalciferol (vitamin D3) 50 mcg PO DAILY diclofenac sodium 1% 2 grams topical QID PRN dulaglutide (Trulicity) 3 mg subcut FR@0900 empagliflozin (Jardiance) 10 mg PO DAILY esomeprazole magnesium (Nexium) 40 mg PO DAILY@0630 fluticasone propionate 110 mcg/actuation (Flovent HFA) 1 puff inhalation BID fluticasone propionate 50 mcg/actuation 2 sprays intranasal DAILY PRN gabapentin 600 mg PO BID glipizide ER 1 tab PO BID lidocaine 5% 1 - 2 patches topical DAILY PRN linaclotide (Linzess) 145 mcg PO DAILY poovun-vhtapero-mvrueqm 24,000-76,000 -120,000 unit (Creon) 1 cap PO QID loratadine 10 mg PO DAILY losartan 100 mg PO DAILY metformin 500 mg PO BID metoprolol tartrate 1.5 tabs PO BID niacin ER 500 mg PO BEDTIME nitroglycerin 0.4 mg sublingual Q5M PRN ondansetron 4 mg PO Q8H PRN sucralfate 1 g PO BID tamsulosin 0.4 mg PO DAILY wheat dextrin (Benefiber Clear Sugar Free(dextrin)) 1 packet PO DAILY HPI HPI Comments History of Present Illness Details 57-year-old gentleman here for follow-up . He has background history of coronary artery disease with PCI of left anterior descending artery and diagonal artery with multiple procedures for InStent restenoses. He presented to [facility] with chest pain and concern for unstable angina. He underwent cardiac catheterization which showed severe ISR in the LAD and diagonal artery. At this stage he was referred for coronary artery bypass surgery. Post surgery he did well. He has no further CP or SOB. He has been taking meds. No bleeding issues. He had atrial flutter and has been on Eliquis. On follow-up he continues to do well. He has no chest pain or shortness of breath. Taking medications regularly. 12/30/22: He returns for follow-up. He has been doing well. No chest discomfort or shortness of breath. No bleeding issues. [facility] Medical History Anal fistula Low back pain Perianal abscess History of panic attacks Hx of myocardial infarction Arthritis GERD (gastroesophageal reflux disease) Scoliosis Asthma Tubular adenoma Migraines Gout Seizures Depression Hypertension Diabetes Adhesive capsulitis of left shoulder Atrial flutter CAD (coronary artery disease) Cellulitis Surgical History History of incision and drainage (~10/19/21) History of umbilical hernia repair History of esophagogastroduodenoscopy (EGD) H/O colonoscopy History of open heart surgery History of sinus surgery History of appendectomy History of angioplasty Family History Father No problems noted. Mother History of stomach cancer History of liver cancer Brother No problems noted. Social History (Updated 12/30/22 @ 09:28 by Ibeth Horvath) Household Members: Family Housing: House Are you a primary day care aide to a significant other at home: Yes (children) Do you presently have visiting nurse or other home services: No Alcohol intake: current Alcohol intake frequency: holidays/special occasions only Alcohol type: beer Patient Tobacco Use Status: Never used Tobacco Advance Directives Date on File: 05/15/22 service: No Current occupational status: disabled Physical Exam Vital Signs: Last Vital Signs Pulse 81 12/30/22 09:25 BP 134/68 12/30/22 09:25 BMI result Body Mass Index 37.2 GENERAL APPEARANCE: in no acute distress, pleasant. NECK: no carotid bruit, no jugular venous distention. SKIN: no suspicious lesions, warm and dry. HEART: no murmurs, regular rate and rhythm. LUNGS: clear to auscultation bilaterally. ABDOMEN: soft, nontender. EXTREMITIES: no edema. PERIPHERAL PULSES: equal. Left radial artery was harvested for bypass. NEUROLOGIC: No gross deficits, AAO X 3 Assessment & Plan Assessment & Plan (1) Stable angina: Code(s): I20.8 - Other forms of angina pectoris (2) Hypertension: Code(s): I10 - Essential (primary) hypertension Plan 57-year-old gentleman who is presenting for follow-up. He has history of bypass surgery for recurrent InStent restenoses. He has done well since then. He previously had atrial flutter and has been on anticoagulation with apixaban. No bleeding issues while taking apixaban and aspirin. Blood pressure control is good. Clinically stable and doing well. He will see us back in 6 months. Thank you for allowing me to participate in the care of your patient. Please feel free to contact me if you have any questions. Coding Level of Care Code Est Pt Level 3 (95894) Diagnoses Stable angina I20.8 Hypertension I10
[2022-12-30 09:25] VITALS: BP 134/68; PULSE 81; BMI 37.2
== END 2022-12-30 09:36 | disposition home or self-care (01) ==
PROVIDERS: PCP Internal Medicine; Visit Provider Internal Medicine Cardiovascular Disease
DX: I20.8 Other forms of angina pectoris (principal); I10 Essential (primary) hypertension
CPT/HCPCS: 99213

== ENCOUNTER → 2022-12-30 09:16 | Outpatient (BNVA) | payer MEDICAID, SELFPAY | PROVIDERS: PCP Internal Medicine; Visit Provider Internal Medicine Cardiovascular Disease | DX: I20.89 Other forms of angina pectoris (principal); I10 Essential (primary) hypertension | CPT/HCPCS: 99212 ==

== ENCOUNTER 2023-01-17 19:42 | Emergency (ER) | payer MEDICAID, SELFPAY ==
--- NOTE | ~2023-01-17 | CT_ITS ---
EXAMINATION: CT ABDOMEN AND PELVIS WITHOUT CONTRAST CLINICAL INFORMATION: Right flank pain COMPARISON: 10/28/2022 TECHNIQUE: Multidetector volumetric imaging was performed from the superior aspect of the liver through the pubic symphysis. Sagittal and coronal reformatted images were obtained on the technologist's workstation. This CT examination was performed using dose optimization techniques as appropriate, variously including the following: *Automated exposure control *Adjustment of mA and/or kV according to patient size (this includes techniques or standardized protocols for targeted exams where dose is matched to indication/reason for exam; i.e. extremities or head) *Use of iterative reconstruction technique DLP: 1219 mGy-cm FINDINGS: LUNG BASES: The visualized lung bases are unremarkable. LIVER, GALLBLADDER, AND BILIARY TREE: Changes of diffuse hepatic steatosis with moderate hepatomegaly. No discrete lesion on this nonenhanced study. No biliary ductal dilatation The gallbladder is unremarkable with no evidence of radiopaque gallstones, gallbladder wall thickening, or obvious pericholecystic inflammatory changes. PANCREAS: Unremarkable. SPLEEN: Unremarkable. ADRENAL GLANDS: Unremarkable. KIDNEYS AND URETERS: The kidneys are normal in size, shape, and attenuation. No hydronephrosis, hydroureter, or calculi seen. No perinephric stranding. Right-sided renal cyst stable. Bosniak 1. No follow-up indicated. BLADDER: Unremarkable. GASTROINTESTINAL TRACT: The small and large bowel are unremarkable. The appendix is not visualized. ABDOMINAL WALL: No significant hernia is appreciated. LYMPH NODES: Mildly enlarged left external iliac lymph node measures up to 7 mm short axis. Tiny subcentimeter reactive appearing retroperitoneal lymph nodes noted. VASCULAR: Unremarkable. PELVIC VISCERA: Unremarkable. OSSEOUS STRUCTURES: Unremarkable. CT/CT abdomen pelvis wo IV con IMPRESSION: No stones or obstructive uropathy. ix. Long-term stability of a mildly enlarged left external iliac lymph node. Fleischner guidelines were followed.
[2023-01-17 19:47] VITALS: BP 106/61; PULSE 88; RESP 16; TEMP 36.2; O2SAT 94; BMI 36.2
--- NOTE | 2023-01-17 19:47 | ED_ITS ---
HPI - Abdominal Pain General Chief Complaint: General Medical Stated Complaint: Flank Pain Time Seen by Provider: 01/17/23 21:52 Source: patient Mode of arrival: ambulatory Limitations: no limitations History of Present Illness HPI narrative: Patient with chronic right lower back pain for more than [address] scans multiple workups without any acute finding comes here with similar pain localized to left side of the lumbar area no bladder or bowel involvement no incontinence no radiation of pain to lower extreme asymmetry weakness no fever or chills patient has seen urologist also no history of kidney stones Related Data Home Medications Medication Instructions Recorded Confirmed amlodipine 10 mg tablet 10 mg PO DAILY 02/17/20 12/30/22 metformin 500 mg tablet 500 mg PO BID 02/17/20 12/30/22 niacin 500 mg tablet,extended 500 mg PO BEDTIME cholesterol 10/25/20 12/30/22 release 24 hr cholecalciferol (vitamin D3) 50 50 mcg PO DAILY 01/29/21 12/30/22 mcg (2,000 unit) capsule loratadine 10 mg tablet 10 mg PO DAILY 01/29/21 12/30/22 fluticasone propionate 110 1 puff inhalation BID 08/27/21 12/30/22 mcg/actuation HFA aerosol inhaler (Flovent HFA) dulaglutide 3 mg/0.5 mL 3 mg subcut FR@0900 12/19/21 12/30/22 subcutaneous pen injector (Trulicity) fluticasone propionate 50 2 spray intranasal DAILY PRN 12/19/21 12/30/22 mcg/actuation nasal Allergic Symptoms spray,suspension glipizide 10 mg tablet, extended 1 tab PO BID 05/15/22 12/30/22 release 24 hr metoprolol tartrate 50 mg tablet 1.5 tab PO BID 05/15/22 12/30/22 losartan 100 mg tablet 100 mg PO DAILY 07/02/22 12/30/22 nitroglycerin 0.4 mg sublingual 0.4 mg sublingual Q5M PRN Chest 07/02/22 12/30/22 tablet Pain acetaminophen 650 mg 650 mg PO Q8H PRN mild pain 09/05/22 12/12/22 tablet,extended release diclofenac sodium 1 % topical gel 2 g topical QID PRN pain 09/05/22 12/30/22 empagliflozin 10 mg tablet 10 mg PO DAILY 09/05/22 12/30/22 (Jardiance) esomeprazole magnesium 40 mg 40 mg PO DAILY@0630 09/05/22 12/30/22 capsule,delayed release (Nexium) gabapentin 600 mg tablet 600 mg PO BID 09/05/22 12/30/22 lidocaine 5 % topical patch 1 - 2 patch topical DAILY PRN Back 09/05/22 12/30/22 Pain atorvastatin 80 mg tablet 80 mg PO BEDTIME 12/30/22 12/30/22 Previous Rx's Medication Instructions Recorded wheat dextrin 3 gram/3.5 gram oral 1 packet PO DAILY #28 ea 05/08/22 powder packet (Benefiber Clear Sugar Free(dextrin)) aspirin 81 mg tablet,delayed 81 mg PO DAILY #30 tabs 05/16/22 release tamsulosin 0.4 mg capsule 0.4 mg PO DAILY #30 caps 05/16/22 ondansetron 4 mg disintegrating 4 mg PO Q8H PRN nausea and 09/04/22 tablet vomiting #20 tabs apixaban 5 mg tablet (Eliquis) 5 mg PO BID 90 days #180 tabs 11/01/22 linaclotide 145 mcg capsule 145 mcg PO DAILY #30 caps 11/19/22 (Linzess) sucralfate 1 gram tablet 1 g PO BID #60 tabs 11/19/22 ojkdoj-sffbbhot-zkmzudc 1 cap PO QID #120 caps 11/29/22 24,000-76,000-120,000 unit capsule,delayed rel (Creon) cyclobenzaprine 10 mg tablet 10 mg PO Q8H #20 tabs 01/17/23 tramadol 50 mg tablet 50 mg PO Q6H PRN pain #20 tabs 01/17/23 Allergies Allergy/AdvReac Type Severity Reaction Status Date / Time Iodinated Contrast Media Allergy Intermediate Difficulty Verified 12/30/22 09:26 [IV CONTRAST] Breathing Penicillins Allergy Mild RASH Verified 12/30/22 09:26 Sulfa (Sulfonamide Allergy Mild RASH Verified 12/30/22 09:26 Antibiotics) codeine AdvReac Mild STOMACH Verified 12/30/22 09:26 UPSET Docusate Calcium Allergy Mild rash Uncoded 12/30/22 09:26 Review of Systems Review of Systems Yes all other systems are reviewed and are negative PMFSH Past Medical History Medical History Anal fistula Low back pain Perianal abscess History of panic attacks Hx of myocardial infarction Arthritis GERD (gastroesophageal reflux disease) Scoliosis Asthma Tubular adenoma Migraines Gout Seizures Depression Hypertension Diabetes Adhesive capsulitis of left shoulder Atrial flutter CAD (coronary artery disease) Cellulitis Surgical History History of incision and drainage (~10/19/21) History of umbilical hernia repair History of esophagogastroduodenoscopy (EGD) H/O colonoscopy History of open heart surgery History of sinus surgery History of appendectomy History of angioplasty Family History Family History Father No problems noted. Mother History of stomach cancer History of liver cancer Brother No problems noted. 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) Do you presently have visiting nurse or other home services: No Alcohol intake: current Alcohol intake frequency: holidays/special occasions only Alcohol type: beer Patient Tobacco Use Status: Never used Tobacco Advance Directives: Yes Advance Directives on File: Yes Advance Directives Date on File: 05/15/22 service: No Current occupational status: disabled Physical Exam ED Vital Signs: Vital Signs - 24 hr 01/17/23 19:47 01/17/23 20:43 01/17/23 21:52 Temperature 97.1 F 97.8 F Pulse Rate 88 80 76 Respiratory Rate 16 16 15 Blood Pressure 106/61 114/62 93/60 Pulse Oximetry 94 96 Oxygen Delivery Method Room Air Room Air Room Air 01/17/23 22:24 Temperature Pulse Rate Respiratory Rate Blood Pressure Pulse Oximetry 96 Oxygen Delivery Method Room Air BMI result Body Mass Index 36.2 Appearance: Alert. Oriented X3. No acute distress. Eyes: No pyloric ENT: Pharynx normal. Oral Mucosa moist Neck: Normal inspection. Neck supple. CVS: Normal heart rate and rhythm. Pulses normal. Respiratory: No respiratory distress. Equal air entry bilateral, no wheezing/rales/rhonchi Abdomen: Soft and nontender. Bowel sounds are present, no mass palpable, no CVA tenderness muscular tenderness left lumbar paraspinal area no midline tenderness SLR negative bilaterally Skin: Skin warm and dry. Normal skin color. Normal skin turgor. Extremities: No lower extremity edema. No calf tenderness Neuro: Oriented X 3. No motor deficit. No sensory deficit.No cerebellar signs , cranial nerves II-XII intact Course Course Course Narrative: This is an RME: Additional HPI, ROS, PE not included below will be deferred to primary provider. patient is a 57-year-old male presents emergency department for evaluation of severe right flank pain onset 2 hours ago radiating into the RLQ, difficulty urinating, denies hematuria. Denies fevers, chills, nausea, vomiting plan: labs, urinalysis Medical Decision Making Medical Decision Making [facility] Narrative: Patient with chronic lumbosacral pain with multiple CT scans negative here workup is also negative CT scan was done prior to my evaluation which was also negative urine negative for infection will discharge the patient home advised to follow with PCP Differential Diagnosis Differential Diagnoses: The differential diagnosis associated with the presentation includes Kidney stone/UTI/muscular pain/arthritis Lab Data [facility] Lab Attestation statement: I reviewed the patient's lab results. 01/17/23 20:10 01/17/23 20:10 Labs: Lab Results 01/17/23 01/17/23 Range/Units 20:10 20:47 WBC 9.6 (4.8-10.8) X10*3/uL RBC 5.48 (4.60-5.80) X10*6/uL Hgb 14.5 (14.0-18.0) g/dl Hct 45.6 (42.0-52.0) % MCV 83.2 (80.0-98.0) fL MCH 26.5 L (27.0-33.0) pg MCHC 31.8 (31.0-36.0) g/dl RDW 14.4 (11.0-16.0) % Plt Count 354 (160-400) X10*3/uL MPV 9.6 (9.4-12.4) fL Immature Gran % (Auto) 0.2 (0.0-0.4) % Neut % (Auto) 41.3 L (45-73) % Lymph % (Auto) 48.4 H (20-40) % [place] % (Auto) 7.1 (2-11) % Eos % (Auto) 2.1 (0-4) % Baso % (Auto) 0.9 (0-2) % Lymph # (Auto) 4.7 (1.2-4.9) X10*3/uL [place] # (Auto) 0.7 (0.1-1.2) X10*3/uL Eos # (Auto) 0.2 (0.0-0.4) X10*3/uL Baso # (Auto) 0.1 (0.0-0.2) X10*3/uL Abs Immat Gran (auto) 0.02 (0.00-0.03) X10*3/uL Absolute Neuts (auto) 4.0 (2.0-8.3) x10*3/uL Absolute Nucleated RBC 0.000 (0.0-0.012) X10*3/uL Nucleated RBC % (auto) 0.0 (0.0-0.2) /100WBC Sodium 139 (135-145) mmol/L Potassium 3.8 (3.3-5.1) mmol/L Chloride 107 (96-108) mmol/L Carbon Dioxide 22 (22-29) mmol/L Anion Gap 14 (12-20) BUN 22 H (9-16) mg/dL Creatinine 1.10 (0.5-1.4) mg/dL Estim Creat Clear Calc 89.9 Estimated GFR > 60 Random Glucose 72 (60-115) mg/dL Calcium 9.8 (8.4-10.2) mg/dL Total Bilirubin 0.2 (0.0-1.0) mg/dL AST 21 (5-37) U/L ALT 25 (0-40) U/L Alkaline Phosphatase 104 (39-117) U/L Total Protein 8.0 (6.5-8.0) g/dL Albumin 4.3 (3.5-5.0) g/dL Urine Color Yellow Urine Appearance Clear Urine pH 5.5 (5.0-9.0) Ur Specific [place] 1.010 (1.005-1.025) Urine Protein Negative (Neg-Trace) mg/dL Urine Glucose (UA) 500 H (Negative) mg/dL Urine Ketones Negative (Negative) mg/dL Urine Blood Negative (Negative) Urine Nitrite Negative (Negative) Ur Leukocyte Esterase Negative (Negative) Medications Administered Discontinued Medications Generic Name Dose Route Start Last Admin Trade Name Pavelq PRN Reason Stop Dose Admin Cyclobenzaprine HCl 10 mg 01/17/23 22:03 01/17/23 22:21 Cyclobenzaprine Hcl 10 Mg Tablet PO 01/17/23 22:04 10 mg ONCE ONE Administration Tramadol HCl 50 mg 01/17/23 22:03 01/17/23 22:21 Tramadol Hcl 50 Mg Tablet PO 01/17/23 22:04 50 mg ONCE ONE Administration Discharge Plan Discharge Clinical Impression: Lumbosacral pain Patient Disposition: Home, Self-Care Instructions: Chronic Back Pain (DC) Additional Instructions: Take pain medication and muscle relaxants as advised Your CT scan is normal and urine is negative for infections Follow with PCP Prescriptions: New cyclobenzaprine 10 mg tablet 10 mg PO Q8H Qty: 20 0RF tramadol 50 mg tablet 50 mg PO Q6H PRN (Reason: pain) Qty: 20 0RF No Action Eliquis 5 mg tablet 5 mg PO BID 90 Days Qty: 180 3RF Creon 24,000-76,000 -120,000 unit capsule,delayed release(DR/EC) 1 cap PO QID Qty: 120 2RF Rx Instructions: administer with meals and/or snacks fluticasone propionate [Flovent HFA] 110 mcg/actuation Hfa Aerosol Inhaler 1 puff INHALATION BID Rx Instructions: rinse mouth after use atorvastatin 80 mg tablet 80 mg PO BEDTIME metoprolol tartrate 50 mg tablet 1.5 tab PO BID glipizide 10 mg tablet extended release 24hr 1 tab PO BID aspirin 81 mg Tablet,Delayed Release (Dr/Ec) 81 mg PO DAILY Qty: 30 0RF tamsulosin 0.4 mg Capsule 0.4 mg PO DAILY Qty: 30 0RF gabapentin 600 mg tablet 600 mg PO BID acetaminophen 650 mg tablet extended release 650 mg PO Q8H PRN (Reason: mild pain) lidocaine 5 % adhesive patch,medicated 1 - 2 patch topical DAILY PRN (Reason: Back Pain) diclofenac sodium 1 % gel 2 g topical QID PRN (Reason: pain) Jardiance 10 mg tablet 10 mg PO DAILY esomeprazole magnesium [Nexium] 40 mg capsule,delayed release(DR/EC) 40 mg PO DAILY@0630 niacin 500 mg tablet extended release 24 hr 500 mg PO BEDTIME amlodipine 10 mg tablet 10 mg PO DAILY metformin 500 mg tablet 500 mg PO BID cholecalciferol (vitamin D3) 50 mcg (2,000 unit) capsule 50 mcg PO DAILY loratadine 10 mg tablet 10 mg PO DAILY Benefiber Clear SF (dextrin) 3 gram/3.5 gram powder in packet 1 packet PO DAILY Qty: 28 5RF Rx Instructions: mix into at least 4 oz water or juice before administering Trulicity 3 mg/0.5 mL pen injector 3 mg subcut FR@0900 fluticasone propionate 50 mcg/actuation spray,suspension 2 spray intranasal DAILY PRN (Reason: Allergic Symptoms) Rx Instructions: 1 spray into each nostril ondansetron 4 mg tablet,disintegrating 4 mg PO Q8H PRN (Reason: nausea and vomiting) Qty: 20 0RF nitroglycerin 0.4 mg tablet, sublingual 0.4 mg sublingual Q5M PRN (Reason: Chest Pain) losartan 100 mg tablet 100 mg PO DAILY Linzess 145 mcg capsule 145 mcg PO DAILY Qty: 30 2RF sucralfate 1 gram tablet 1 g PO BID Qty: 60 4RF Interventions: ED Discharge Assessment Last Done: 01/17/23 22:23 Discharge Date/Time: 01/17/23 22:25
[2023-01-17 20:14] LABS: MANUAL DIFF FLAG NO
[2023-01-17 20:16] LABS: Basophils Absolute Auto 0.1 X10*3/uL (0.0-0.2); Basophils Percent Auto 0.9 % (0-2); Eosinophils Absolute Auto 0.2 X10*3/uL (0.0-0.4); Eosinophils Percent Auto 2.1 % (0-4); Hematocrit 45.6 % (42.0-52.0); Hemoglobin 14.5 g/dl (14.0-18.0); Imm Gran Abs Auto 0.02 X10*3/uL (0.00-0.03); Imm Gran Pct Auto 0.2 % (0.0-0.4); Lymphocytes Absolute Auto 4.7 X10*3/uL (1.2-4.9); Lymphocytes Percent Auto 48.4 % (20-40); Mean Corpuscular HGB Conc 31.8 g/dl (31.0-36.0); Mean Corpuscular Hemoglobin 26.5 pg (27.0-33.0); Mean Corpuscular Volume 83.2 fL (80.0-98.0); Mean Platelet Volume 9.6 fL (9.4-12.4); Monocytes Absolute Auto 0.7 X10*3/uL (0.1-1.2); Monocytes Percent Auto 7.1 % (2-11); Neutrophils Percent Auto 41.3 % (45-73); Platelet Count 354 X10*3/uL (160-400); Red Blood Count 5.48 X10*6/uL (4.60-5.80); Red Cell Distribution Width 14.4 % (11.0-16.0); White Blood Count 9.6 X10*3/uL (4.8-10.8)
[2023-01-17 20:32] LABS: Alanine Aminotransferase 25 U/L (0-40); Albumin Level 4.3 g/dL (3.5-5.0); Alkaline Phosphatase 104 U/L (39-117); Anion Gap 14 (12-20); Aspartate Amino Transferase 21 U/L (5-37); Bilirubin Total 0.2 mg/dL (0.0-1.0); Blood Urea Nitrogen 22 mg/dL (9-16); Calcium 9.8 mg/dL (8.4-10.2); Carbon Dioxide 22 mmol/L (22-29); Chloride 107 mmol/L (96-108); Creatinine Clr Calc Pharmacy 89.9; Estimated Glomerular Filt Rate > 60; Glucose Random 72 mg/dL (60-115); Potassium 3.8 mmol/L (3.3-5.1); Sodium 139 mmol/L (135-145)
[2023-01-17 20:43] VITALS: BP 114/62; PULSE 80; RESP 16; TEMP 36.6
[2023-01-17 21:00] LABS: Appearance Urine Clear; Color Urine Yellow; Glucose Urine UA 500 mg/dL (Negative); Leukocyte Esterase Urine Negative (Negative); Nitrite Urine Negative (Negative); PH 5.5 (5.0-9.0); Urine Blood Negative (Negative); Urine Ketones Negative (Negative); Urine Protein Negative (Neg-Trace)
[2023-01-17 21:52] VITALS: BP 93/60; PULSE 76; RESP 15; O2SAT 96
[2023-01-17] MEDS: traMADoL HCL 50 MG TABLET PO (22:21)
[2023-01-17] MEDS: Cyclobenzaprine HCl 10 MG TABLET PO (22:21)
[2023-01-17 22:24] VITALS: O2SAT 96
== END 2023-01-17 22:25 | disposition home or self-care (01) ==
PROVIDERS: Nurse Practitioner Family; Emergency Provider Internal Medicine; PCP Internal Medicine
DX: S33.9XXA Sprain of unspecified parts of lumbar spine and pelvis, initial encounter (principal); R10.2 Pelvic and perineal pain; X58.XXXA Exposure to other specified factors, initial encounter; Y93.9 Activity, unspecified; Y92.9 Unspecified place or not applicable; Y99.9 Unspecified external cause status; Z79.899 Other long term (current) drug therapy
CPT/HCPCS: 36415; 51798; 74176; 80053; 81003; 85025; 99284; 99285

== ENCOUNTER 2023-02-12 11:02 | Outpatient (AMB) | payer MEDICAID, SELFPAY ==
--- NOTE | 2023-02-12 11:21 | MHC.OFFVIS ---
Intake Vital Signs 02/12/23 11:26 Height 5 ft 9 in Weight 251 lb 5.231 oz BMI 37.1 BP 121/64 Blood Pressure Location Lt brachial Position Sitting Pulse 79 Intake Visit Reasons: Abd. Pain Intake Note: Brannon presents in the office as a follow up for Abd Pains. CC: States that he is does not have any concerns today. Allergies Iodinated Contrast Media [IV CONTRAST] Allergy (Intermediate, Verified 02/12/23 11:27) Difficulty Breathing Penicillins Allergy (Mild, Verified 02/12/23 11:27) RASH Sulfa (Sulfonamide Antibiotics) Allergy (Mild, Verified 02/12/23 11:27) RASH codeine Adverse Reaction (Mild, Verified 02/12/23 11:27) STOMACH UPSET Docusate Calcium Allergy (Mild, Uncoded 02/12/23 11:27) rash HPI Abd. Pain HPI Details LAST VISIT: Gastroesophageal reflux disease Continue Nexium in the morning half an hour before breakfast. Will increase his sucralfate to twice a day. Patient was encouraged to avoid dietary triggers and late night snacking. Staying upright for minimum 3 hours after meals discussed with patient. RLQ abdominal pain This no tenderness on exam. Patient has hyperactive bowel sounds. Normal CT scan. Possible that patient's pain is related to gas trapping causing cramping. Patient is constipated will send rib for Linzess. LLQ abdominal pain Postprandial abdominal bloating Low FODMAP diet discussed with patient Epigastric pain Patient reports epigastric discomfort postprandially. Feeling nauseous. Patient reports feeling flu. Will send him for gastric emptying study. I will see patient in 5 weeks, sooner on as needed basis. Patient is agreeable to this plan and verbalizes understanding of instructions. He was given the opportunity to ask questions and all questions answered. ? Thank you for allowing me to participate in his care Plan Orders Orders NM gastric emptying study Today K21.9, R10.13 Medications New linaclotide (Linzess) 145 mcg PO DAILY 30 caps 2RF Changed Changed From sucralfate 1 g PO BEDTIME 30 tabs 4RF R19.7 Changed To sucralfate 1 g PO BID 60 tabs 4RF R19.7 TODAY'S VISIT: Patient is here today for follow-up and to discuss gastric emptying study results. Patient was diagnosed with gastroparesis. He is feeling better. States that he is moving his bowels better now that he is taking Linzess. Patient is also taking Nexium in the morning and reports that his symptoms of acid reflux are suppressed. Patient is trying to change the food that he eats. Avoiding dietary triggers. Occasional dyspepsia without dysphagia or odynophagia. Patient denies any nausea or vomiting. Occasional postprandial abdominal bloating, however no abdominal pain or discomfort. Colonoscopy was in May of 2020 and recommendation was made to repeat colonoscopy in 3 years. Patient will be due to go for it. Patient denies melena, hematochezia, unintentional weight loss or ribbon like stools. [facility] Medical History (Updated 03/05/23 @ 16:39 by Onelia Lockhart [facility]) Gastroparesis Anal fistula Low back pain Perianal abscess History of panic attacks Hx of myocardial infarction Arthritis GERD (gastroesophageal reflux disease) Scoliosis Asthma Tubular adenoma Migraines Gout Seizures Depression Hypertension Diabetes Adhesive capsulitis of left shoulder Atrial flutter CAD (coronary artery disease) Cellulitis Surgical History History of incision and drainage (~10/19/21) History of umbilical hernia repair History of esophagogastroduodenoscopy (EGD) H/O colonoscopy History of open heart surgery History of sinus surgery History of appendectomy History of angioplasty Family History Father No problems noted. Mother History of stomach cancer History of liver cancer Brother No problems noted. 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) Do you presently have visiting nurse or other home services: No Alcohol intake: current Alcohol intake frequency: holidays/special occasions only Alcohol type: beer Patient Tobacco Use Status: Never used Tobacco Advance Directives Date on File: 05/15/22 service: No Current occupational status: disabled Review of Systems Const Denies weight gain and Denies weight loss ENT Reports no additional complaints, Denies dysphagia and Denies odynophagia Card Reports no additional complaints Resp Reports no additional complaints GI Denies abdominal pain, Denies belching, Denies melena, Denies bloating, Denies change in bowel habits, Denies dysphagia, Denies excessive flatus, Denies dyspepsia, Denies heartburn, Denies diarrhea, Denies loose stools, Denies nausea, Denies odynophagia and Denies vomiting Reports no additional complaints Musc Reports no additional complaints Neuro Reports no additional complaints Psych Reports no additional complaints Endo Reports no additional complaints Physical Exam Vital Signs: Last Vital Signs Pulse 79 02/12/23 11:26 BP 121/64 02/12/23 11:26 BMI result Body Mass Index 37.1 Const General: healthy appearing, no acute distress and well developed Nutritional Appearance: obese Orientation/consciousness: patient oriented x3 HEENT Head: Yes normal to inspection, Yes normocephalic and Yes atraumatic Face and sinus: Yes normal facial exam Mouth: Normal oral and palatal mucosa present Throat: Yes posterior oropharynx normal, Yes tonsils normal and Yes uvula midline Eyes General: appearance normal, both eyes and all related structures Neck Neck: Yes normal visual inspection, Yes full ROM and Yes trachea midline Thyroid: Thyroid normal Resp Effort & Inspection: normal respiratory effort, able to speak in complete sentences, no tracheal deviation and symmetric chest movement Auscultation: clear to auscultation bilaterally Cardio Rate: regular rate GI Inspection: Yes normal to inspection, No distended and Yes obesity Palpation (GI): Soft to palpation, not firm, nontender and No hepatosplenomegaly present Auscultation: normal bowel sounds General: Yes no CVA tenderness Back/Spine/Pelvis Back: no CVA tenderness Skin General skin exam: elasticity normal, turgor normal and dry skin Neuro General: patient oriented x3 Psych Appearance: grossly normal Mental Status: mental status grossly normal Results Reviewed Results Reviewed: GASTRIC EMPTYING STUDY FINDINGS: There is good visualization of activity in the stomach immediately post ingestion. As the study progresses, there is only fair clearance of activity from the stomach and visualization of progressively increasing small bowel activity. At the end of the study there is moderately severe abnormal retention of activity in the stomach at 4 hours. Retention in the stomach at each time interval was: 1 hour 83% (normal 37%-90%) 2 hours 81% (normal 30%-60%) 3 hours 76% 4 hours 35% (normal 0%-10%) NM/NM gastric emptying study IMPRESSION: Abnormal study. There is moderately severe abnormal retention of solid food in the stomach at 4 hours. Assessment & Plan Assessment & Plan (1) Gastroesophageal reflux disease: Code(s): K21.9 - Gastro-esophageal reflux disease without esophagitis Qualifiers: Esophagitis presence: without esophagitis Qualified Code(s): K21.9 - Gastro-esophageal reflux disease without esophagitis (2) Gastroparesis: Code(s): K31.84 - Gastroparesis (3) RLQ abdominal pain: Code(s): R10.31 - Right lower quadrant pain (4) LLQ abdominal pain: Code(s): R10.32 - Left lower quadrant pain (5) Postprandial abdominal bloating: Code(s): R14.0 - Abdominal distension (gaseous) (6) Epigastric pain: Code(s): R10.13 - Epigastric pain Plan Diagnosed with gastroparesis on gastric emptying study. Patient will start to Reglan 15 minutes before meals. Patient can stop taking sucralfate. Continue taking Nexium in the morning. Patient will continue taking Linzess. Patient will call the office if he will have any tremors after starting Reglan. Patient was encouraged to discontinue immediately and call the office. Patient will continue eating small meals. Gastroparesis diet discussed with patient. I will see him in 5 weeks, we will discuss going for colonoscopy patient was encouraged to increase fluid intake and activity to promote better bowel motility. Patient is agreeable to this plan and verbalizes understanding of instructions. He was given the opportunity to ask questions all questions answered. Thank you for allowing me to participate in his care Medications: New metoclopramide HCl (Reglan) irina un comprimido 15 minutos antes de las comidas 5 mg PO QIDACHS 120 tabs 1RF K31.84 - Gastroparesis metoclopramide HCl (Reglan) irina un comprimido 15 minutos antes de las comidas 5 mg PO QIDACHS 120 tabs 1RF K31.84 - Gastroparesis Discontinued sucralfate Discontinued Reason: Doctor's Order 1 g PO BID 60 tabs 4RF R19.7 - Diarrhea, unspecified [id number]-ambssfta-yijelgg 24,000-76,000 -120,000 unit administer with meals and/or snacks Discontinued Reason: Doctor's Order 1 cap PO QID 120 caps 2RF K58.9 - Irritable bowel syndrome without diarrhea Coding Level of Care Code Est Pt Level 4 (29707) Diagnoses Gastroesophageal reflux disease without esophagitis K21.9 Esophagitis presence: without esophagitis Gastroparesis K31.84 RLQ abdominal pain R10.31 LLQ abdominal pain R10.32 Postprandial abdominal bloating R14.0 Epigastric pain R10.13 Time Spent (min) 35 Comment 20 minute spent with patient and additional 15 minutes spent reviewing his records
[2023-02-12 11:26] VITALS: BP 121/64; PULSE 79; BMI 37.1
== END 2023-02-12 12:03 | disposition home or self-care (01) ==
PROVIDERS: PCP Internal Medicine; Visit Provider Nurse Practitioner Family
DX: K21.9 Gastro-esophageal reflux disease without esophagitis (principal); K31.84 Gastroparesis; R14.0 Abdominal distension (gaseous)
CPT/HCPCS: 99214

== ENCOUNTER → 2023-02-12 11:02 | Outpatient (BNVA) | payer MEDICAID, SELFPAY | PROVIDERS: PCP Internal Medicine; Visit Provider Nurse Practitioner Family | DX: R10.31 Right lower quadrant pain (principal); R10.32 Left lower quadrant pain; R14.0 Abdominal distension (gaseous); R10.13 Epigastric pain; K21.9 Gastro-esophageal reflux disease without esophagitis; K31.84 Gastroparesis | CPT/HCPCS: 99212 ==

== ENCOUNTER 2023-06-11 08:42 | Outpatient (AMB) | payer MEDICAID, SELFPAY ==
--- NOTE | 2023-06-11 08:46 | MHC.OFFVIS ---
Intake Vital Signs 06/11/23 08:48 Height 5 ft 9 in Weight 251 lb BMI 37.1 BP 148/84 H Blood Pressure Location Lt brachial Position Sitting Pulse 85 Pulse Source Pulse Oximeter Pulse Oximetry (%) 99 Oxygen Delivery Method Room Air Intake Visit Reasons: f/u discuss repeat colonoscopy Comic Artist Required: Yes Comic Artist Language: Moldovan Information Interpreted: non-clinical & clinical Accompanied by: Self / Same As Patient Allergies Iodinated Contrast Media [IV CONTRAST] Allergy (Intermediate, Verified 06/11/23 08:48) Difficulty Breathing Penicillins Allergy (Mild, Verified 06/11/23 08:48) RASH Sulfa (Sulfonamide Antibiotics) Allergy (Mild, Verified 06/11/23 08:48) RASH codeine Adverse Reaction (Mild, Verified 06/11/23 08:48) STOMACH UPSET Docusate Calcium Allergy (Mild, Uncoded 06/11/23 08:48) rash HPI f/u discuss repeat colonoscopy HPI Details LAST VISIT: Gastroesophageal reflux disease Gastroparesis RLQ abdominal pain LLQ abdominal pain Postprandial abdominal bloating Epigastric pain Plan Diagnosed with gastroparesis on gastric emptying study. Patient will start to Reglan 15 minutes before meals. Patient can stop taking sucralfate. Continue taking Nexium in the morning. Patient will continue taking Linzess. Patient will call the office if he will have any tremors after starting Reglan. Patient was encouraged to discontinue immediately and call the office. Patient will continue eating small meals. Gastroparesis diet discussed with patient. I will see him in 5 weeks, we will discuss going for colonoscopy patient was encouraged to increase fluid intake and activity to promote better bowel motility. Patient is agreeable to this plan and verbalizes understanding of instructions. He was given the opportunity to ask questions all questions answered. ? Thank you for allowing me to participate in his care Medications New metoclopramide HCl (Reglan) irina un comprimido 15 minutos antes de las comidas 5 mg PO QIDACHS 120 tabs 1RF K31.84 metoclopramide HCl (Reglan) irina un comprimido 15 minutos antes de las comidas 5 mg PO QIDACHS 120 tabs 1RF K31.84 Discontinued sucralfate Discontinued Reason: Doctor's Order 1 g PO BID 60 tabs 4RF R19.7 guiedu-jjsrikmy-hycolku 24,000-76,000 -120,000 unit administer with meals and/or snacks Discontinued Reason: Doctor's Order 1 cap PO QID 120 caps 2RF K58.9 TODAY'S VISIT Patient is here today for follow-up and to discuss going for colonoscopy. Patient reports that he has been feeling much better since the last time I have seen him. He takes Reglan before meals and states that it helps. Patient no longer feels bloated and full postprandially. Patient denies any tremors. Takes Linzess and reports that he is moving his bowels well. Patient denies melena, hematochezia, unintentional weight loss or ribbon like stools. Patient denies any dyspepsia, dysphagia or odynophagia [facility] Medical History Gastroparesis Anal fistula Low back pain Perianal abscess History of panic attacks Hx of myocardial infarction Arthritis GERD (gastroesophageal reflux disease) Scoliosis Asthma Tubular adenoma Migraines Gout Seizures Depression Hypertension Diabetes Adhesive capsulitis of left shoulder Atrial flutter CAD (coronary artery disease) Cellulitis Surgical History History of incision and drainage (~10/19/21) History of umbilical hernia repair History of esophagogastroduodenoscopy (EGD) H/O colonoscopy History of open heart surgery History of sinus surgery History of appendectomy History of angioplasty Family History Father No problems noted. Mother History of stomach cancer History of liver cancer Brother No problems noted. 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 complex care nurse practitioner to a significant other at home: Yes (children) Do you presently have visiting nurse or other home services: No Alcohol intake: current Alcohol intake frequency: holidays/special occasions only Alcohol type: beer Patient Tobacco Use Status: Never used Tobacco Advance Directives Date on File: 05/15/22 service: No Current occupational status: disabled Review of Systems Const Denies weight gain and Denies weight loss ENT Reports no additional complaints, Denies dysphagia and Denies odynophagia Card Reports no additional complaints Resp Reports no additional complaints GI Denies abdominal pain, Denies belching, Denies melena, Denies bloating, Denies change in bowel habits, Denies dysphagia, Denies excessive flatus, Denies dyspepsia, Denies heartburn, Denies diarrhea, Denies loose stools, Denies nausea, Denies odynophagia and Denies vomiting Reports no additional complaints Musc Reports no additional complaints Neuro Reports no additional complaints Psych Reports no additional complaints Endo Reports no additional complaints Physical Exam Vital Signs: Last Vital Signs Pulse 85 06/11/23 08:48 BP 148/84 H 06/11/23 08:48 Pulse Ox 99 06/11/23 08:48 Oxygen Delivery Method Room Air 06/11/23 08:48 BMI result Body Mass Index 37.1 Const General: healthy appearing and no acute distress Nutritional Appearance: obese Orientation/consciousness: patient oriented x3 Resp Effort & Inspection: normal respiratory effort, able to speak in complete sentences, no tracheal deviation and symmetric chest movement Auscultation: clear to auscultation bilaterally Cardio Rate: regular rate GI Inspection: Yes normal to inspection, No distended and Yes obesity Palpation (GI): Soft to palpation, not firm, nontender and No hepatosplenomegaly present Auscultation: normal bowel sounds General: Yes no CVA tenderness Back/Spine/Pelvis Back: no CVA tenderness Skin General skin exam: elasticity normal, turgor normal and dry skin Neuro General: patient oriented x3 Psych Appearance: grossly normal Mental Status: mental status grossly normal Assessment & Plan Assessment & Plan (1) Gastroparesis: Code(s): K31.84 - Gastroparesis (2) Gastroesophageal reflux disease: Code(s): K21.9 - Gastro-esophageal reflux disease without esophagitis Qualifiers: Esophagitis presence: without esophagitis Qualified Code(s): K21.9 - Gastro-esophageal reflux disease without esophagitis (3) Postprandial abdominal bloating: Code(s): R14.0 - Abdominal distension (gaseous) (4) RLQ abdominal pain: Code(s): R10.31 - Right lower quadrant pain (5) LLQ abdominal pain: Code(s): R10.32 - Left lower quadrant pain (6) Epigastric pain: Code(s): R10.13 - Epigastric pain (7) Screen for colon cancer: Code(s): Z12.11 - Encounter for screening for malignant neoplasm of colon Plan Patient reports to be feeling much better and is able to move his bowels well. Denies any abdominal pain or discomfort. Patient denies any chest pain or shortness of breath. Has cardiology appointment end of this month will ask for clearance. Patient is on aspirin and Eliquis. Will need to stop Eliquis for 48 hours before procedure if cleared. Patient denies any issues with anesthesia in the past. No history of sleep apnea. What to expect before during and after procedure discussed with patient. The importance of clear liquid diet and good bowel prep stressed with patient. I will see him after the procedure, sooner on as needed basis. Patient is agreeable to this plan and verbalizes understanding of instructions. He was given the opportunity to ask questions and all questions answered. Thank you for allowing me to participate in his care Coding Level of Care Code Est Pt Level 4 (60821) Diagnoses Gastroparesis K31.84 Gastroesophageal reflux disease without esophagitis K21.9 Esophagitis presence: without esophagitis Postprandial abdominal bloating R14.0 RLQ abdominal pain R10.31 LLQ abdominal pain R10.32 Epigastric pain R10.13 Screen for colon cancer Z12.11 Time Spent (min) 35 Comment 20 minutes spent with patient and additional 15 minutes spent reviewing his records
[2023-06-11 08:48] VITALS: BP 148/84; PULSE 85; O2SAT 99; BMI 37.1
== END 2023-06-11 09:50 | disposition home or self-care (01) ==
PROVIDERS: PCP Internal Medicine; Visit Provider Nurse Practitioner Family
DX: K31.84 Gastroparesis (principal); K21.9 Gastro-esophageal reflux disease without esophagitis; R14.0 Abdominal distension (gaseous); R10.31 Right lower quadrant pain; R10.32 Left lower quadrant pain; R10.13 Epigastric pain; Z12.11 Encounter for screening for malignant neoplasm of colon
CPT/HCPCS: 99214

== ENCOUNTER → 2023-06-11 08:42 | Outpatient (BNVA) | payer MEDICAID, SELFPAY | PROVIDERS: PCP Internal Medicine; Visit Provider Nurse Practitioner Family | DX: K21.9 Gastro-esophageal reflux disease without esophagitis (principal); R14.0 Abdominal distension (gaseous); R10.32 Left lower quadrant pain; R10.31 Right lower quadrant pain; R10.13 Epigastric pain; K31.84 Gastroparesis | CPT/HCPCS: 99212 ==

== ENCOUNTER 2023-07-07 09:10 | Outpatient (AMB) | payer MEDICAID, SELFPAY ==
[2023-07-07 09:19] VITALS: BP 140/72; PULSE 91; BMI 37.2
--- NOTE | 2023-07-07 09:19 | A.OFFVIS_ITS ---
Vital Signs 07/07/23 09:19 Height 5 ft 9 in Weight 251 lb 12.286 oz BMI 37.2 BP 140/72 H Blood Pressure Location Lt brachial Position Sitting Pulse 91 Intake Visit Reasons: 6M follow up/ preop colonoscopy Intake Note: pt its here for a 6 mnth with preop for colonoscopy pt states that he its doing fine. Rehabilitation Program Manager Required: Yes Rehabilitation Program Manager Name: /cyracom Accompanied by: Self / Same As Patient Allergies Iodinated Contrast Media [IV CONTRAST] Allergy (Intermediate, Verified 06/11/23 08:48) Difficulty Breathing Penicillins Allergy (Mild, Verified 06/11/23 08:48) RASH Sulfa (Sulfonamide Antibiotics) Allergy (Mild, Verified 06/11/23 08:48) RASH codeine Adverse Reaction (Mild, Verified 06/11/23 08:48) STOMACH UPSET Docusate Calcium Allergy (Mild, Uncoded 06/11/23 08:48) rash Medication List - Last Reconciled 07/07/23 by Rajiv Jean MD acetaminophen ER 650 mg PO Q8H PRN amlodipine 10 mg PO DAILY apixaban (Eliquis) 5 mg PO BID 90 days aspirin 81 mg PO DAILY atorvastatin 80 mg PO BEDTIME bisacodyl (Dulcolax (bisacodyl)) 20 mg (4 x 5 mg) PO ONCE 1 day cholecalciferol (vitamin D3) 50 mcg PO DAILY colchicine 0.6 mg PO DAILY cyclobenzaprine 10 mg PO Q8H diclofenac sodium 1% 2 grams topical QID PRN empagliflozin (Jardiance) 10 mg PO DAILY esomeprazole magnesium (Nexium) 40 mg PO DAILY@0630 fluticasone propionate 110 mcg/actuation (Flovent HFA) 1 puff inhalation BID fluticasone propionate 50 mcg/actuation 2 sprays intranasal DAILY PRN gabapentin 600 mg PO BID glipizide ER 1 tab PO BID lidocaine 5% 1 - 2 patches topical DAILY PRN linaclotide (Linzess) 145 mcg PO DAILY loratadine 10 mg PO DAILY losartan 100 mg PO DAILY metformin 500 mg PO BID metoclopramide HCl (Reglan) 5 mg PO QIDACHS metoprolol tartrate 1.5 tabs PO BID niacin ER 500 mg PO BEDTIME polyethylene glycol 3350 (Miralax) 238 grams PO ONCE tamsulosin 0.4 mg PO DAILY HPI Comments Details: 58-year-old gentleman here for follow-up. He has background history of coronary artery disease with PCI of left anterior descending artery and diagonal artery with multiple procedures for InStent restenoses. He presented to [facility] with chest pain and concern for unstable angina. He underwent cardiac catheterization which showed severe ISR in the LAD and diagonal artery. At this stage he was referred for coronary artery bypass surgery. Post surgery he did well. He has no further CP or SOB. He has been taking meds. No bleeding issues. He had atrial flutter and has been on Eliquis. On follow-up he continues to do well. He has no chest pain or shortness of breath. Taking medications regularly. 12/30/22: He returns for follow-up. He has been doing well. No chest discomfort or shortness of breath. No bleeding issues. 07/07/23: He returns for follow-up. He needs perioperative cardiovascular risk assessment for colonoscopy. He is going for colonoscopy in August or September. He is taking medications regularly. Blood pressure is elevated and he is saying that he has pain in his knees and arms which is present all the time. He is asking whether he can get some stronger medications and Tylenol. I have asked him to discuss this with his primary care physician. His blood pressure is elevated and ideally we should be adding medications but he seems somewhat reluctant and after discussion we have decided to keep a log and he will bring it next time. [facility] Medical History Gastroparesis Anal fistula Low back pain Perianal abscess History of panic attacks Hx of myocardial infarction Arthritis GERD (gastroesophageal reflux disease) Scoliosis Asthma Tubular adenoma Migraines Gout Seizures Depression Hypertension Diabetes Adhesive capsulitis of left shoulder Atrial flutter CAD (coronary artery disease) Cellulitis Surgical History History of incision and drainage (~10/19/21) History of umbilical hernia repair History of esophagogastroduodenoscopy (EGD) H/O colonoscopy History of open heart surgery History of sinus surgery History of appendectomy History of angioplasty Family History Father No problems noted. Mother History of stomach cancer History of liver cancer Brother No problems noted. 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 vp care management to a significant other at home: Yes (children) Do you presently have visiting nurse or other home services: No Alcohol intake: current Alcohol intake frequency: holidays/special occasions only Alcohol type: beer Patient Tobacco Use Status: Never used Tobacco Advance Directives Date on File: 05/15/22 service: No Current occupational status: disabled Review of Systems Const Denies chills, Denies fatigue, Denies fever(s), Denies frequent falls, Denies weakness, Denies weight gain and Denies weight loss ENT Denies dizziness Card Denies chest pain, Denies leg edema, Denies lightheadedness, Denies palpitations, Denies dyspnea and Denies dyspnea on exertion Resp Denies cough, Denies dyspnea and Denies dyspnea on exertion GI Denies hematochezia Musc Denies abnormal gait, Denies muscle weakness, Denies numbness, Denies radiating pain into limb and Denies tingling Neuro Denies abnormal gait, Denies dizziness, Denies frequent falls, Denies numbness, Denies tingling and Denies weakness Endo Denies fatigue and Denies palpitations Physical Exam Vital Signs: Last Vital Signs Pulse 91 07/07/23 09:19 BP 140/72 H 07/07/23 09:19 BMI result Body Mass Index 37.2 GENERAL APPEARANCE: in no acute distress, pleasant. NECK: no carotid bruit, no jugular venous distention. SKIN: no suspicious lesions, warm and dry. HEART: no murmurs, regular rate and rhythm. LUNGS: clear to auscultation bilaterally. ABDOMEN: soft, nontender. EXTREMITIES: no edema. PERIPHERAL PULSES: equal. Left radial artery was harvested for bypass. NEUROLOGIC: No gross deficits, AAO X 3 Office Procedures EKG Details: Sinus rhythm 81 beats per minute, normal axis, ST-T changes consider inferior lateral ischemia. QTC 430 milliseconds. [id number], Complete Assessment & Plan Assessment & Plan (1) CAD (coronary artery disease): Comment: Sees Dr Jean Code(s): I25.10 - Atherosclerotic heart disease of [place] coronary artery without angina pectoris Category: Medical (2) Atrial flutter: Code(s): I48.92 - Unspecified atrial flutter Category: Medical Plan Pleasant 58 year gentleman who is here for follow-up. He underwent single- vessel bypass surgery for recurrent ISR in the LAD. He has done well since then. He had 1 episode of atrial flutter but has been in sinus rhythm since then. He is on anticoagulation with Eliquis and is on baby aspirin. He needs colonoscopy. He has been physically active and has no exertional symptoms. He is intermediate risk for perioperative cardiovascular complications. He should hold the Eliquis for 48 hours before colonoscopy. Ideally aspirin should not be stopped but if it is necessary to stop then he can hold it for 5 days. Blood pressure is mildly elevated. He will keep a blood pressure log. Our office will reach out to him in a week to get the blood pressure readings. Thank you for allowing me to participate in the care of your patient. Please feel free to contact me if you have any questions. Coding Level of Care Code Est Pt Level 4 (47987) Diagnoses CAD (coronary artery disease) I25.10 Atrial flutter I48.92 CPT Codes EKG - CPT: 19216-[id number], Complete ([id number])
== END 2023-07-07 09:56 | disposition home or self-care (01) ==
PROVIDERS: PCP Internal Medicine; Referring Provider Internal Medicine; Visit Provider Internal Medicine Cardiovascular Disease
DX: I25.10 Atherosclerotic heart disease of native coronary artery without angina pectoris (principal); I48.92 Unspecified atrial flutter
CPT/HCPCS: 93010; 99214

== ENCOUNTER → 2023-07-07 09:10 | Outpatient (BNVA) | payer MEDICAID, SELFPAY | PROVIDERS: PCP Internal Medicine; Visit Provider Internal Medicine Cardiovascular Disease | DX: I25.10 Atherosclerotic heart disease of native coronary artery without angina pectoris (principal); I48.92 Unspecified atrial flutter; Z79.01 Long term (current) use of anticoagulants; Z79.82 Long term (current) use of aspirin | CPT/HCPCS: 93005; 99212 ==

== ENCOUNTER 2023-09-20 21:51 | Inpatient (IN) | payer MEDICAID, SELFPAY ==
--- NOTE | ~2023-09-20 | CT_ITS ---
EXAMINATION: CT ANGIOGRAM NECK AND HEAD CLINICAL INFORMATION: Left arm numbness COMPARISON: 09/04/2022. TECHNIQUE: Test bolus sequences followed by administration of 70 mL of Omnipaque 300 intravenous contrast. Helical imaging was performed in the axial plane of the neck. The data was processed at the nuclear cardiology technologist workstation for generation of MIP sequences. Three-dimensional volume rendered reformatted images were also generated at an offline 3-D workstation. This CT examination was performed using dose optimization techniques as appropriate, variously including the following: *Automated exposure control *Adjustment of mA and/or kV according to patient size (this includes techniques or standardized protocols for targeted exams where dose is matched to indication/reason for exam; i.e. extremities or head) *Use of iterative reconstruction technique DLP: 2733 mGy-cm FINDINGS: CT HEAD: The lateral, third and fourth ventricles are normally outlined. The cortical sulci and basal cisterns are normally outlined as well. There is no acute territorial defect, hemorrhage or midline shift. The extra-axial spaces are unremarkable. Calvarium/scalp: Intact. Maxillofacial sinuses and mastoids: Clear as visualized. CTA HEAD/NECK: The aortic arch has a classic configuration and the major arch vessel origins are non-stenotic. The right vertebral artery is dominant. Both vertebral arteries are patent. Both common carotid arteries are normal in course and caliber. Both internal carotid arteries demonstrate mild atherosclerotic plaque without significant stenosis. There is atherosclerotic plaque of the intracranial internal carotid artery similar to previous without evidence for significant stenosis. The bilateral middle cerebral and anterior cerebral arteries are patent. The distal vertebral arteries, basilar artery and branches as well as posterior cerebral arteries are patent. No aneurysm identified. CT/CT angio head neck IMPRESSION: 1. No evidence of major vessel occlusion or significant stenosis within the intracranial circulation. 2. Mild atherosclerotic plaque of the internal carotid arteries bilaterally without evidence for significant stenosis. 3. No acute territorial infarct or hemorrhage.
[2023-09-20 21:58] VITALS: BP 133/71; PULSE 91; O2SAT 95
--- NOTE | 2023-09-20 21:58 | ECG_ITS ---
Test Reason : weakness Blood Pressure : / mmHG Vent. Rate : 078 BPM Atrial Rate : 078 BPM P-R Int : 148 ms QRS Dur : 102 ms QT Int : 366 ms P-R-T Axes : 059 016 -37 degrees QTc Int : 417 ms Normal sinus rhythm Nonspecific T wave abnormality Abnormal ECG When compared with ECG of 04-SEP-2022 21:16, T wave inversion no longer evident in Anterolateral leads Referred By: Isabella Metzger Electronically Signed By:Rajiv Jean
[2023-09-20 21:59] VITALS: BP 121/58; PULSE 80; RESP 25; TEMP 36.7; O2SAT 95; BMI 41.3
[2023-09-20 21:59] LABS: Glucose, Whole Blood 110 mg/dL (60-115)
--- NOTE | 2023-09-20 22:04 | ED.WEAKNESS ---
HPI - Weakness General Chief complaint: Weakness Stated complaint: SOB, chest pain, hx CVA, L weakness, droop, headac Time Seen by Provider: 09/20/23 21:57 Source: patient and EMS Mode of arrival: EMS Limitations: no limitations History of Present Illness ED Provider: Dr. Isabella Metzger HPI Narrative: Patient comes to the emergency room via ambulance from home. Patient states that 4 days ago, patient noted that the left side of his face was numb and tingly and his tongue was very heavy. Patient states that also he noticed that his left arm is a bit heavier than usual. Patient has history of CVA with left residual weakness but states he got a bit worse. Throughout the last 4 days, patient states that his arm string has been constant, but couple of hours prior to arrival, patient noticed that the numbness and tingling got worse, got scared, started vomiting, got very anxious, had chest pain, called 911 and patient was brought to the emergency room. At this time, patient states that he still feels a bit numb tingling especially in the left arm and the tongue. No chest pain. Related Data Home Medications ?Medication ?Instructions ?Recorded ?Confirmed amlodipine 10 mg tablet 10 mg PO DAILY 02/17/20 07/07/23 metformin 500 mg tablet 500 mg PO BID 02/17/20 07/07/23 niacin 500 mg tablet,extended 500 mg PO BEDTIME cholesterol 10/25/20 07/07/23 release 24 hr cholecalciferol (vitamin D3) 50 50 mcg PO DAILY 01/29/21 07/07/23 mcg (2,000 unit) capsule loratadine 10 mg tablet 10 mg PO DAILY 01/29/21 07/07/23 fluticasone propionate 110 1 puff inhalation BID 08/27/21 07/07/23 mcg/actuation HFA aerosol inhaler (Flovent HFA) fluticasone propionate 50 2 spray intranasal DAILY PRN 12/19/21 07/07/23 mcg/actuation nasal Allergic Symptoms spray,suspension glipizide 10 mg tablet, extended 1 tab PO BID 05/15/22 07/07/23 release 24 hr metoprolol tartrate 50 mg tablet 1.5 tab PO BID 05/15/22 07/07/23 losartan 100 mg tablet 100 mg PO DAILY 07/02/22 07/07/23 acetaminophen 650 mg 650 mg PO Q8H PRN mild pain 09/05/22 07/07/23 tablet,extended release diclofenac sodium 1 % topical gel 2 g topical QID PRN pain 09/05/22 07/07/23 empagliflozin 10 mg tablet 10 mg PO DAILY 09/05/22 07/07/23 (Jardiance) gabapentin 600 mg tablet 600 mg PO BID 09/05/22 07/07/23 lidocaine 5 % topical patch 1 - 2 patch topical DAILY PRN Back 09/05/22 07/07/23 Pain atorvastatin 80 mg tablet 80 mg PO BEDTIME 12/30/22 07/07/23 colchicine 0.6 mg capsule 0.6 mg PO DAILY 02/12/23 07/07/23 Previous Rx's ?Medication ?Instructions ?Recorded aspirin 81 mg tablet,delayed 81 mg PO DAILY #30 tabs 05/16/22 release tamsulosin 0.4 mg capsule 0.4 mg PO DAILY #30 caps 05/16/22 apixaban 5 mg tablet (Eliquis) 5 mg PO BID 90 days #180 tabs 11/01/22 cyclobenzaprine 10 mg tablet 10 mg PO Q8H #20 tabs 01/17/23 metoclopramide HCl 5 mg tablet 5 mg PO QIDACHS #120 tabs 02/12/23 (Reglan) esomeprazole magnesium 40 mg 40 mg PO DAILY@0630 #90 caps 02/28/23 capsule,delayed release (Nexium) bisacodyl 5 mg tablet,delayed 20 mg (4 x 5 mg) PO ONCE 1 day #4 06/11/23 release (Dulcolax (bisacodyl)) tabs polyethylene glycol 3350 17 238 g PO ONCE #238 grams 06/11/23 gram/dose oral powder (Miralax) linaclotide 145 mcg capsule 145 mcg PO DAILY #30 caps 07/30/23 (Linzess) Allergies Allergy/AdvReac Type Severity Reaction Status Date / Time Iodinated Contrast Media Allergy Intermediate Difficulty Verified 09/20/23 22:02 [IV CONTRAST] Breathing Penicillins Allergy Mild RASH Verified 09/20/23 22:02 Sulfa (Sulfonamide Allergy Mild RASH Verified 09/20/23 22:02 Antibiotics) codeine AdvReac Mild STOMACH Verified 09/20/23 22:02 UPSET Docusate Calcium Allergy Mild rash Uncoded 09/20/23 22:02 Review of Systems Review of Systems: Constitutional : No Weight loss, No Fever, No Chills, No Night Sweats, No Fatigue, No Malaise ENT/Mouth : No Hearing loss, No Ear Pain, No Nasal Congestion, No Sinus Pain, No Hoarseness, No sore throat, No Rhinorrhea, No Swallowing Difficulty Eyes: No Eye Pain, No Swelling, No Redness, No Foreign Body, No Discharge, No Vision Changes Cardiovascular : No Chest Pain, No SOB, No Dyspnea on Exertion, No Orthopnea, No Edema, No Palpitations Respiratory : No Cough, No Sputum, No Wheezing, No Smoke Exposure, No Dyspnea Gastrointestinal : Complaining of 1 episode of nausea and vomiting, No Diarrhea, No Constipation, No abdominal Pain, No Hematochezia, No Melena Genitourinary : no irregular bleeding, No Dysuria, No Urinary Frequency, No Hematuria, No Urinary Incontinence, No Urgency, No Flank Pain, No Urinary Flow Changes, No Hesitancy Musculoskeletal : No joint pain, No Myalgias, No Joint Swelling Skin : No Skin Lesions, No rash Neuro : Complaining of residual weakness on the left arm from previous CVA, complaining of left face numbness and tingling in tongue heaviness, No Numbness, No Paresthesias, No Loss of Consciousness, No Dizziness, No Headache Psych : No Anxiety/Panic, No Depression, No SI/HI/AH/VH, No Social Issues, Heme/Lymph: No Bruising, No Bleeding,No Lymphadenopathy Endocrine : No Polyuria, No Polydipsia, No Temperature Intolerance PMFSH Past Medical History Medical History Gastroparesis Anal fistula Low back pain Perianal abscess History of panic attacks Hx of myocardial infarction Arthritis GERD (gastroesophageal reflux disease) Scoliosis Asthma Tubular adenoma Migraines Gout Seizures Depression Hypertension Diabetes Adhesive capsulitis of left shoulder Atrial flutter CAD (coronary artery disease) Cellulitis Surgical History History of incision and drainage (~10/19/21) History of umbilical hernia repair History of esophagogastroduodenoscopy (EGD) H/O colonoscopy History of open heart surgery History of sinus surgery History of appendectomy History of angioplasty Family History Family History Father No problems noted. Mother History of stomach cancer History of liver cancer Brother No problems noted. Social History 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 primary care nurse practitioner to a significant other at home: Yes (children) Do you presently have visiting nurse or other home services: No Alcohol intake: current Alcohol intake frequency: holidays/special occasions only Alcohol type: beer Patient Tobacco Use Status: Never used Tobacco Advance Directives: Yes Advance Directives on File: Yes Advance Directives Date on File: 05/15/22 service: No Current occupational status: disabled Physical Exam Vital Signs: Vital Signs: Last Vital Signs Temp 97.7 F 09/21/23 00:52 Pulse 77 09/21/23 00:52 Resp 17 09/21/23 00:52 BP 143/71 H 09/21/23 00:52 Pulse Ox 95 09/21/23 00:52 O2 Del Method Room Air 09/21/23 00:52 BMI result Body Mass Index 41.3 Const: Other: Appearance: Alert. Oriented X3. No acute distress. Eyes: Pupils equal, round and reactive to light. ENT: Pharynx normal. Neck: Normal inspection. Neck supple. No lymph nodes noted. No crepitus CVS: Normal heart rate and rhythm. Pulses normal. Normal S1 and S2 Respiratory: No respiratory distress. Breath sounds normal. No Wheezing. No rales Abdomen: Soft and nontender. No rigidity. No distention. Skin: Skin warm and dry. Normal skin color. Normal skin turgor. Extremities: No lower extremity edema. No Lacerations. No Rash Neuro: Oriented X 3. No motor deficit. No sensory deficit. Moving all extremities. No slurred speech. CN 2 through 12 grossly intact, very minimal difference in strength of the left hand which is chronic. There is no drift even on the left arm. Speech is clear Psych: calm, cooperative, seems scared, tearful NIH Stroke Scale Internal: Initial- Upon Arrival Level of Consciousness: Alert Level of Consciousness Questions: Answers both questions correctly Level of Consciousness Commands: Performs both tasks correctly Best Gaze: Normal Visual: No visual loss Facial Palsy: Normal Motor Arm (Right): No drift Motor Arm (Left): No drift Motor Leg (Right): No drift Motor Leg (Left): No drift Limb Ataxia: Absent Sensory: Normal Best Language: No aphasia Dysarthia: Normal Extinction and Inattention: No abnormality Score: 0 Course Course Course Narrative: -on arrival, patient is NIH score is 0. Patient seems to be slightly weaker on the left arm, barely noticeable. There is no drift. -patient has been symptomatic for almost 4 days and patient is on Eliquis, patient is not a candidate for TNK -all of patient's labs and imaging pending. Medications Administered Discontinued Medications Generic Name Dose Route Start Last Admin Trade Name Freq PRN Reason Stop Dose Admin Iohexol 85 ml 09/20/23 22:42 09/20/23 22:43 Iohexol 350 Mg/Ml 100 Ml Infus..Btl IV 09/20/23 22:43 85 ml ONCE ONE Administration Lorazepam 1 mg 09/21/23 01:31 09/21/23 01:38 Lorazepam 1 Mg Tablet PO 09/21/23 01:32 1 mg ONCE ONE Administration Medical Decision Making Medical Decision Making [facility] Narrative: -my interpretation of EKG 1: Normal sinus rhythm, heart rate 78, no ST segment depression, nonspecific T-wave inversion in V4 through V6 previously seen in past EKGs. QTC 417 -my interpretation of hematology, at baseline, chemistry no obvious abnormalities, LFTs normal, troponin-2.7, BNP 49, patient has not provided a urine sample yet. ETOH level 56 -my CT scan interpretation: No intracranial bleed, no obvious occlusion -while we were waiting for the CT scan to be read by Radiology, patient had other complaints, including anxiety, chest pressure. A 2nd EKG was done, -my interpretation of EKG 2: Normal sinus rhythm, heart rate 75, no ST segment depression or elevation, no T-wave inversions, QTC 417 - Troponin 2 pending -CTA report: Obvious abnormality. -I discussed the patient with Dr. Wanrer from the Medicine team, patient being admitted -vitals stable, blood pressure 143/71, respirations 17, heart rate 77, oxygen saturation 95% on room air Differential Diagnosis Differential Diagnoses: The differential diagnosis associated with the presentation includes (TIA, CVA, anxiety, NSTEMI, ACS) Admission/Observation Consideration of admission/observation: Escalation of care including admission/observation considered Consult Healthcare Provider Management of the patient was discussed with: Hospitalist Lab Data MDM Lab Attestation statement: I reviewed the patient's lab results. 09/20/23 22:15 09/20/23 22:14 Labs: Lab Results 09/20/23 09/20/23 09/20/23 Range/Units 21:56 22:14 22:15 WBC 8.3 (4.8-10.8) X10*3/uL RBC 4.92 (4.60-5.80) X10*6/uL Hgb 13.8 L (14.0-18.0) g/dl Hct 41.4 L (42.0-52.0) % MCV 84.1 (80.0-98.0) fL MCH 28.0 (27.0-33.0) pg MCHC 33.3 (31.0-36.0) g/dl RDW 14.5 (11.0-16.0) % Plt Count 332 (160-400) X10*3/uL MPV 9.5 (9.4-12.4) fL Immature Gran % (Auto) 0.2 (0.0-0.4) % Neut % (Auto) 43.9 L (45-73) % Lymph % (Auto) 41.4 H (20-40) % Antelope % (Auto) 8.3 (2-11) % Eos % (Auto) 4.9 H (0-4) % Baso % (Auto) 1.3 (0-2) % Lymph # (Auto) 3.5 (1.2-4.9) X10*3/uL Antelope # (Auto) 0.7 (0.1-1.2) X10*3/uL Eos # (Auto) 0.4 (0.0-0.4) X10*3/uL Baso # (Auto) 0.1 (0.0-0.2) X10*3/uL Abs Immat Gran (auto) 0.02 (0.00-0.03) X10*3/uL Absolute Neuts (auto) 3.7 (2.0-8.3) x10*3/uL Absolute Nucleated RBC 0.000 (0.0-0.012) X10*3/uL Nucleated RBC % (auto) 0.0 (0.0-0.2) /100WBC PT 12.4 (11.1-13.3) SEC INR 1.0 (0.9-1.1) Sodium 137 (135-145) mmol/L Potassium 3.9 (3.3-5.1) mmol/L Chloride 108 (96-108) mmol/L Carbon Dioxide 16 L (22-29) mmol/L Anion Gap 17 (12-20) BUN 19 H (9-16) mg/dL Creatinine 1.19 (0.5-1.4) mg/dL Estim Creat Clear Calc 82.6 Estimated GFR > 60 POC Glucose 110 (60-115) mg/dL Random Glucose 112 (60-115) mg/dL Calcium 9.1 D (8.4-10.2) mg/dL Magnesium 2.1 (1.6-2.6) mg/dL Total Bilirubin 0.3 (0.0-1.0) mg/dL Direct Bilirubin < 0.1 (0.0-0.5) mg/dL AST 22 (5-37) U/L ALT 23 (0-40) U/L Alkaline Phosphatase 89 (39-117) U/L Troponin I High Sens < 2.7 (<3.5-35.0) ng/L B-Natriuretic Peptide 49 (<100) pg/mL Total Protein 7.7 (6.5-8.0) g/dL Albumin 4.1 (3.5-5.0) g/dL Ethyl Alcohol 56 mg/dL Independent Interpretation I performed an independent interpretation of an: CT Scan Radiology Impression Discussion of test interpretation with radiology: I have reviewed the radiologist's reading. Radiologist Impression: FINDINGS: CT HEAD: The lateral, third and fourth ventricles are normally outlined. The cortical sulci and basal cisterns are normally outlined as well. There is no acute territorial defect, hemorrhage or midline shift. The extra-axial spaces are unremarkable. Calvarium/scalp: Intact. Maxillofacial sinuses and mastoids: Clear as visualized. CTA HEAD/NECK: The aortic arch has a classic configuration and the major arch vessel origins are non-stenotic. The right vertebral artery is dominant. Both vertebral arteries are patent. Both common carotid arteries are normal in course and caliber. Both internal carotid arteries demonstrate mild atherosclerotic plaque without significant stenosis. There is atherosclerotic plaque of the intracranial internal carotid artery similar to previous without evidence for significant stenosis. The bilateral middle cerebral and anterior cerebral arteries are patent. The distal vertebral arteries, basilar artery and branches as well as posterior cerebral arteries are patent. No aneurysm identified. CT/CT angio head neck IMPRESSION: 1. No evidence of major vessel occlusion or significant stenosis within the intracranial circulation. 2. Mild atherosclerotic plaque of the internal carotid arteries bilaterally without evidence for significant stenosis. 3. No acute territorial infarct or hemorrhage. Independent Historian Clinical information obtained from an independent historian. History obtained from or confirmed by: EMS Critical Care Time Critical Care Time Critical Care Time: Yes Total Critical Care Time: 75 Attestation: I have personally provided critical care time. Time includes review of lab data, radiology results, discussion with consultants, and monitoring for potential decompensation. Intervention performed as documented. Discharge Plan Discharge Clinical Impression: TIA (transient ischemic attack), Atypical chest pain Patient Disposition: Admitted As Inpatient Prescriptions: No Action Eliquis 5 mg tablet 5 mg PO BID 90 Days Qty: 180 3RF esomeprazole magnesium [Nexium] 40 mg capsule,delayed release(DR/EC) 40 mg PO DAILY@0630 Qty: 90 3RF bisacodyl [Dulcolax (bisacodyl)] 5 mg tablet,delayed release (DR/EC) 20 mg PO ONCE 1 Days Qty: 4 0RF Rx Instructions: take 4 tabs at noon the day before your colonoscopy polyethylene glycol 3350 [Miralax] 17 gram/dose powder 238 g PO ONCE Qty: 238 0RF Rx Instructions: As directed by gastroenterology department at [facility] Linzess 145 mcg capsule 145 mcg PO DAILY Qty: 30 3RF fluticasone propionate [Flovent HFA] 110 mcg/actuation Hfa Aerosol Inhaler 1 puff INHALATION BID Rx Instructions: rinse mouth after use atorvastatin 80 mg tablet 80 mg PO BEDTIME metoprolol tartrate 50 mg tablet 1.5 tab PO BID glipizide 10 mg tablet extended release 24hr 1 tab PO BID aspirin 81 mg Tablet,Delayed Release (Dr/Ec) 81 mg PO DAILY Qty: 30 0RF tamsulosin 0.4 mg Capsule 0.4 mg PO DAILY Qty: 30 0RF gabapentin 600 mg tablet 600 mg PO BID acetaminophen 650 mg tablet extended release 650 mg PO Q8H PRN (Reason: mild pain) lidocaine 5 % adhesive patch,medicated 1 - 2 patch topical DAILY PRN (Reason: Back Pain) diclofenac sodium 1 % gel 2 g topical QID PRN (Reason: pain) Jardiance 10 mg tablet 10 mg PO DAILY cyclobenzaprine 10 mg tablet 10 mg PO Q8H Qty: 20 0RF niacin 500 mg tablet extended release 24 hr 500 mg PO BEDTIME amlodipine 10 mg tablet 10 mg PO DAILY metformin 500 mg tablet 500 mg PO BID cholecalciferol (vitamin D3) 50 mcg (2,000 unit) capsule 50 mcg PO DAILY loratadine 10 mg tablet 10 mg PO DAILY fluticasone propionate 50 mcg/actuation spray,suspension 2 spray intranasal DAILY PRN (Reason: Allergic Symptoms) Rx Instructions: 1 spray into each nostril losartan 100 mg tablet 100 mg PO DAILY colchicine 0.6 mg capsule 0.6 mg PO DAILY metoclopramide HCl [Reglan] 5 mg tablet 5 mg PO QIDACHS Qty: 120 1RF Rx Instructions: irina un comprimido 15 minutos antes de las comidas Print Language: Salvadorean
[2023-09-20 22:21] LABS: Basophils Absolute Auto 0.1 X10*3/uL (0.0-0.2); Basophils Percent Auto 1.3 % (0-2); Eosinophils Absolute Auto 0.4 X10*3/uL (0.0-0.4); Eosinophils Percent Auto 4.9 % (0-4); Hematocrit 41.4 % (42.0-52.0); Hemoglobin 13.8 g/dl (14.0-18.0); Imm Gran Abs Auto 0.02 X10*3/uL (0.00-0.03); Imm Gran Pct Auto 0.2 % (0.0-0.4); Lymphocytes Absolute Auto 3.5 X10*3/uL (1.2-4.9); Lymphocytes Percent Auto 41.4 % (20-40); MANUAL DIFF FLAG NO; Mean Corpuscular HGB Conc 33.3 g/dl (31.0-36.0); Mean Corpuscular Volume 84.1 fL (80.0-98.0); Mean Platelet Volume 9.5 fL (9.4-12.4); Monocytes Absolute Auto 0.7 X10*3/uL (0.1-1.2); Monocytes Percent Auto 8.3 % (2-11); Neutrophils Absolute Auto 3.7 x10*3/uL (2.0-8.3); Neutrophils Percent Auto 43.9 % (45-73); Platelet Count 332 X10*3/uL (160-400); Red Blood Count 4.92 X10*6/uL (4.60-5.80); Red Cell Distribution Width 14.5 % (11.0-16.0); White Blood Count 8.3 X10*3/uL (4.8-10.8)
--- NOTE | 2023-09-20 22:31 | MHC.EDTECH ---
Bloodwork is done EKG Done @1032 Poc 110 Call light within reach Plan of care ongoing
[2023-09-20 22:32] LABS: Prothrombin Time 12.4 SEC (11.1-13.3)
[2023-09-20 22:36] LABS: Alanine Aminotransferase 23 U/L (0-40); Albumin Level 4.1 g/dL (3.5-5.0); Alkaline Phosphatase 89 U/L (39-117); Anion Gap 17 (12-20); Aspartate Amino Transferase 22 U/L (5-37); Bilirubin Direct < 0.1 mg/dL (0.0-0.5); Bilirubin Total 0.3 mg/dL (0.0-1.0); Blood Urea Nitrogen 19 mg/dL (9-16); Calcium 9.1 mg/dL (8.4-10.2); Carbon Dioxide 16 mmol/L (22-29); Chloride 108 mmol/L (96-108); Creatinine Clr Calc Pharmacy 82.6; Estimated Glomerular Filt Rate > 60; Ethanol 56 mg/dL; Glucose Random 112 mg/dL (60-115); Magnesium 2.1 mg/dL (1.6-2.6); Potassium 3.9 mmol/L (3.3-5.1); Sodium 137 mmol/L (135-145); Total Protein 7.7 g/dL (6.5-8.0)
[2023-09-20 22:39] LABS: B Type Natriuretic Peptide 49 pg/mL (<100)
[2023-09-20] MEDS: iohexoL 350 MG/ML 100 ML INFUS..BTL 85 ML IV (22:43)
[2023-09-20 22:47] LABS: Troponin-I High Sensitivity < 2.7 ng/L (<3.5-35.0)
--- NOTE | 2023-09-21 | ECG_ITS ---
Test Reason : chest pain Blood Pressure : / mmHG Vent. Rate : 075 BPM Atrial Rate : 075 BPM P-R Int : 144 ms QRS Dur : 096 ms QT Int : 374 ms P-R-T Axes : 010 018 050 degrees QTc Int : 417 ms Normal sinus rhythm Nonspecific T wave abnormality Abnormal ECG When compared with ECG of 20-SEP-2023 22:18, Nonspecific T wave abnormality no longer evident in Inferior leads Referred By: Isabella Metzger Electronically Signed By:Rajiv Jean
[2023-09-21 00:52] VITALS: BP 143/71; PULSE 77; RESP 17; TEMP 36.5; O2SAT 95
[2023-09-21] MEDS: LORazepam 1 MG TABLET PO (01:38)
--- NOTE | 2023-09-21 03:47 | P.HPHOSP_ITS ---
History of Present Illness Date of Service: 09/21/23 Attending physician on admission: Federico Florez Chief Complaint: Chest pain Brannon Leavitt is a 58 years old man with past medical history significant for type 2 diabetes mellitus, gastroparesis, GERD, hypertension, depression, atrial flutter on Eliquis, CAD (s/p PCI to LAD + diagonal artery with multiple procedures for restenoses), s/p CABG and hyperlipidemia presents to the emergency department complaining of mid chest pain that has been going on since Friday. He described the pain as constant, dull and radiates to the left arm. Last night the pain intensified 10/10 after he ate around 7 PM. This episode was followed multiple events of nausea and vomiting. He also mentioned having some tingling sensation over his left cheek and left arm. He took 3 nitros sublingually without relief of chest pain. He denied weakness to the lower extremities, headache, dizziness, palpitations, cough or shortness on breath. He also denied abdominal pain, diarrhea, fevers or chills. He denied alcohol abuse, tobacco smoking or illicit drug use. In the ED, he was found to have stable vital signs. Blood workup showed no leukocytosis. Hemoglobin 13.9 and platelets are normal. INR is 1.0. Renal function is normal. There are no significant electrolyte imbalances. Bicarb is 16 are normal anion gap. LFTs are normal. Troponin x2 is less than 2.7 and BNP is 49. EtOH liver is 56. Head CT scan showed no acute intracranial abnormalities. Head and neck CTA showed no evidence of major vessel occlusion or significant stenosis within the intracranial circulation. ED tx: Ativan 1 mg p.o. x1. Review of Systems 2 Review of Systems: All 12 systems were reviewed and normal except as noted in HPI. [facility] Medical History Gastroparesis Anal fistula Low back pain Perianal abscess History of panic attacks Hx of myocardial infarction Arthritis GERD (gastroesophageal reflux disease) Scoliosis Asthma Tubular adenoma Migraines Gout Seizures Depression Hypertension Diabetes Adhesive capsulitis of left shoulder Atrial flutter CAD (coronary artery disease) Cellulitis Family History Father No problems noted. Mother History of stomach cancer History of liver cancer Brother No problems noted. 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) Do you presently have visiting nurse or other home services: No Alcohol intake: current Alcohol intake frequency: holidays/special occasions only Alcohol type: beer Patient Tobacco Use Status: Never used Tobacco Advance Directives: Yes Advance Directives on File: Yes Advance Directives Date on File: 05/15/22 service: No Current occupational status: disabled Meds Allergies Allergy/AdvReac Type Severity Reaction Status Date / Time Iodinated Contrast Media Allergy Intermediate Difficulty Verified 09/20/23 22:02 [IV CONTRAST] Breathing Penicillins Allergy Mild RASH Verified 09/20/23 22:02 Sulfa (Sulfonamide Allergy Mild RASH Verified 09/20/23 22:02 Antibiotics) codeine AdvReac Mild STOMACH Verified 09/20/23 22:02 UPSET Docusate Calcium Allergy Mild rash Uncoded 09/20/23 22:02 Active Medications: Current Medications Acetaminophen (Acetaminophen 325 Mg Tablet) 975 mg PO Q6H PRN PRN Reason: Pain, Mild (Pain Scale 1-3), fever or headache Sodium Chloride (0.9 % Sodium Chloride Flush 3 Ml Syringe) [facility]ations ?Medication ?Instructions ?Recorded ?Confirmed ?Last Taken ?Type amlodipine 10 mg tablet 10 mg PO DAILY 02/17/20 07/07/23 09/04/22 15:00 History metformin 500 mg tablet 500 mg PO BID 02/17/20 07/07/23 09/04/22 15:00 History niacin 500 mg tablet,extended 500 mg PO BEDTIME cholesterol 10/25/20 07/07/23 09/03/22 History release 24 hr cholecalciferol (vitamin D3) 50 50 mcg PO DAILY 01/29/21 07/07/23 09/04/22 15:00 History mcg (2,000 unit) capsule loratadine 10 mg tablet 10 mg PO DAILY 01/29/21 07/07/23 09/04/22 15:00 History fluticasone propionate 110 1 puff inhalation BID 08/27/21 07/07/23 09/04/22 15:00 History mcg/actuation HFA aerosol inhaler (Flovent HFA) fluticasone propionate 50 2 spray intranasal DAILY PRN 12/19/21 07/07/23 Unknown History mcg/actuation nasal Allergic Symptoms spray,suspension glipizide 10 mg tablet, extended 1 tab PO BID 05/15/22 07/07/23 09/04/22 15:00 History release 24 hr metoprolol tartrate 50 mg tablet 1.5 tab PO BID 05/15/22 07/07/23 09/04/22 15:00 History losartan 100 mg tablet 100 mg PO DAILY 07/02/22 07/07/23 09/04/22 15:00 History acetaminophen 650 mg 650 mg PO Q8H PRN mild pain 09/05/22 07/07/23 Unknown History tablet,extended release diclofenac sodium 1 % topical gel 2 g topical QID PRN pain 09/05/22 07/07/23 Unknown History empagliflozin 10 mg tablet 10 mg PO DAILY 09/05/22 07/07/23 09/04/22 15:00 History (Jardiance) gabapentin 600 mg tablet 600 mg PO BID 09/05/22 07/07/23 09/04/22 15:00 History lidocaine 5 % topical patch 1 - 2 patch topical DAILY PRN Back 09/05/22 07/07/23 Unknown History Pain atorvastatin 80 mg tablet 80 mg PO BEDTIME 12/30/22 07/07/23 Unknown History colchicine 0.6 mg capsule 0.6 mg PO DAILY 02/12/23 07/07/23 Unknown History Physical Exam 2 Vital Signs and Narrative: Vital Signs: Last Vital Signs Temp 97.7 F 09/21/23 00:52 Pulse 77 09/21/23 00:52 Resp 17 09/21/23 00:52 BP 143/71 H 09/21/23 00:52 Pulse Ox 95 09/21/23 00:52 O2 Del Method Room Air 09/21/23 00:52 BMI result Body Mass Index 41.3 Constitutional - Awake and Alert, No apparent distress. Looks tired. Cooperative. HEENT - PERRLA, EOMI. Dry oral mucosa. Normal sclerae. Heart - S1S2, RRR. Lungs - Normal lung expansion, Normal respiratory effort, No respiratory distress, CTA bilaterally Abdomen - NT / ND; +BS; No rebound or guarding Extremities - no calf tenderness bilaterally, no swelling Musculoskeletal - Normal inspection, normal ROM Skin - Warm/Dry Neurological - Alert & oriented x3. No focal weakness grossly noted. Normal speech. Psychological - Depressed affect Results Labs 09/20/23 22:15 09/20/23 22:14 Labs: Laboratory Results - last 24 hr 09/20/23 09/20/23 09/20/23 21:56 22:14 22:15 MCV 84.1 MCH 28.0 MCHC 33.3 RDW 14.5 Plt Count 332 MPV 9.5 Immature Gran % (Auto) 0.2 Neut % (Auto) 43.9 L Lymph % (Auto) 41.4 H [place] % (Auto) 8.3 Eos % (Auto) 4.9 H Baso % (Auto) 1.3 Lymph # (Auto) 3.5 [place] # (Auto) 0.7 Eos # (Auto) 0.4 Baso # (Auto) 0.1 Abs Immat Gran (auto) 0.02 Absolute Neuts (auto) 3.7 Absolute Nucleated RBC 0.000 Nucleated RBC % (auto) 0.0 PT 12.4 INR 1.0 Anion Gap 17 Estim Creat Clear Calc 82.6 Estimated GFR > 60 POC Glucose 110 Random Glucose 112 Calcium 9.1 D Magnesium 2.1 Total Bilirubin 0.3 Direct Bilirubin < 0.1 AST 22 ALT 23 Alkaline Phosphatase 89 Troponin I High Sens < 2.7 B-Natriuretic Peptide 49 Total Protein 7.7 Albumin 4.1 Ethyl Alcohol 56 Imaging Radiologist's Impressions: Impressions Head/Neck CTA 09/20/23 23:02 IMPRESSION: 1. No evidence of major vessel occlusion or significant stenosis within the intracranial circulation. 2. Mild atherosclerotic plaque of the internal carotid arteries bilaterally without evidence for significant stenosis. 3. No acute territorial infarct or hemorrhage. Assessment and Plan (1) Atypical chest pain: Status: Acute (2) Gastroparesis: Status: Acute Plan Brannon Leavitt is a 58 years old man with past medical history significant for gastroparesis and CAD s/p CABG (s/p PCI to LAD + diagonal artery with multiple procedures for restenoses) presents with: * Chest pain associated with postprandial nausea and vomiting; suspecting GI in nature: Gastroparesis, GERD, acute gastritis (recent EtOH consumption -EtOH level 56). ECG showed normal sinus rhythm with no ischemic changes. Observation. Telemetry. IV hydration. Start treatment with Reglan and Protonix IV. Continue aspirin, Eliquis and statin. Morphine 2 mg IV. Recheck troponin. Cardiology consult. * Left arm numbness + cheek numbness associated to above. Similar presentation in the past while having chest pain. No evidence of strokes in the past. Head CT scan without contrast and head + neck CTA are unremarkable today. * Essential hypertension. Continue amlodipine, losartan and metoprolol. * Type 2 diabetes mellitus. On Trulicity weekly (Friday). BG checks before meals at bedtime. Continue Jardiance and glipizide. Metoprolol hold. Insulin sliding scale. Diabetic diet. * GERD. Continue PPI. * History of atrial flutter. ECG today: NSR. Continue Eliquis and metoprolol. * Hyperlipidemia. Continue statin. * Neuropathy. Continue gabapentin. * BPH. Continue tamsulosin. DVT prophylaxis: Eliquis Code status: Full Quality Stroke Does the patient have a stroke diagnosis?: No VTE Prior VTE?: No VTE Risk Level:: Medical - moderate - high VTE Device Contraindication: Treatment Not Indicated VTE Drug Contraindication: N/A - Med Ordered
[2023-09-21 04:19] LABS: Lipase 42 U/L (8-78)
[2023-09-21] MEDS: Apixaban 5 MG TABLET PO (04:25)
[2023-09-21] MEDS: Aspirin 81 MG TAB.CHEW 162 MG PO (04:25)
[2023-09-21] MEDS: Metoclopramide HCl 10 MG/2 ML VIAL 5 MG IVPUSH ×2 (04:26→11:57)
[2023-09-21] MEDS: Morphine Sulfate 2 MG/ML CARTRIDGE IVPUSH ×2 (04:26→14:39)
[2023-09-21] MEDS: Pantoprazole Sodium 40 MG/10 ML VIAL IVPUSH (04:26)
[2023-09-21] MEDS: Lactated Ringers 1,000 ML 100 ML IVCONT (04:46)
[2023-09-21 06:02] LABS: MANUAL DIFF FLAG NO
[2023-09-21 06:04] LABS: Basophils Absolute Auto 0.1 X10*3/uL (0.0-0.2); Basophils Percent Auto 1.1 % (0-2); Eosinophils Absolute Auto 0.4 X10*3/uL (0.0-0.4); Hematocrit 43.4 % (42.0-52.0); Hemoglobin 14.2 g/dl (14.0-18.0); Imm Gran Abs Auto 0.03 X10*3/uL (0.00-0.03); Imm Gran Pct Auto 0.3 % (0.0-0.4); Lymphocytes Absolute Auto 3.1 X10*3/uL (1.2-4.9); Lymphocytes Percent Auto 35.1 % (20-40); Mean Corpuscular HGB Conc 32.7 g/dl (31.0-36.0); Mean Corpuscular Hemoglobin 27.9 pg (27.0-33.0); Mean Corpuscular Volume 85.3 fL (80.0-98.0); Monocytes Absolute Auto 0.8 X10*3/uL (0.1-1.2); Monocytes Percent Auto 8.7 % (2-11); Neutrophils Absolute Auto 4.4 x10*3/uL (2.0-8.3); Neutrophils Percent Auto 49.8 % (45-73); Platelet Count 314 X10*3/uL (160-400); Red Blood Count 5.09 X10*6/uL (4.60-5.80); Red Cell Distribution Width 14.6 % (11.0-16.0); White Blood Count 8.8 X10*3/uL (4.8-10.8)
[2023-09-21 06:12] LABS: Lactic Acid 1.6 mmol/L (0.5-2.0)
[2023-09-21 06:19] LABS: Anion Gap 15 (12-20); Blood Urea Nitrogen 21 mg/dL (9-16); Calcium 9.8 mg/dL (8.4-10.2); Carbon Dioxide 20 mmol/L (22-29); Chloride 106 mmol/L (96-108); Creatinine Clr Calc Pharmacy 93.7; Estimated Glomerular Filt Rate > 60; Glucose Random 141 mg/dL (60-115); Potassium 3.9 mmol/L (3.3-5.1); Sodium 137 mmol/L (135-145)
[2023-09-21 06:23] LABS: Troponin-I High Sensitivity < 2.7 ng/L (<3.5-35.0)
[2023-09-21 07:00] VITALS: BP 151/66; PULSE 73; O2SAT 98
[2023-09-21 08:27] LABS: Glucose, Whole Blood 93 mg/dL (60-115)
--- NOTE | 2023-09-21 09:57 | PHA.MEDREC ---
Pharmacy Consult ? Medication Reconciliation Pharmacy has completed the medication reconciliation. Utilized historical interpreter services.
--- NOTE | 2023-09-21 11:37 | PM.CNCAR ---
History of Present Illness History of Present Illness Date of Service: 09/21/23 Chief complaint: Chest Pain Narrative: Pleasant 58 year gentleman with known history of coronary artery disease with previous LAD diagonal PCI with severe in stent restenosis for which she underwent coronary artery bypass surgery. He has done well since the surgery. Yesterday he started having sharp left-sided chest pain. He has saying the pain was similar to his chest pain before surgery and before he had stents placed. It took nitroglycerin x3 without any relief and then came to the emergency department. In the ER he received morphine and he said his pain improved subsequently. He has no chest discomfort or pain right now. His high sensitive troponin levels are normal. He has nonspecific lateral T-wave changes which improved on subsequent EKG. Blood pressure is elevated. He is saying he has been taking medications regularly. [facility] Past Medical History Medical History (Updated 09/21/23 @ 11:41 by Rajiv Jean MD) Chest pain Gastroparesis Anal fistula Low back pain Perianal abscess History of panic attacks Hx of myocardial infarction Arthritis GERD (gastroesophageal reflux disease) Scoliosis Asthma Tubular adenoma Migraines Gout Seizures Depression Hypertension Diabetes Adhesive capsulitis of left shoulder Atrial flutter CAD (coronary artery disease) Cellulitis Family History Family History Father No problems noted. Mother History of stomach cancer History of liver cancer Brother No problems noted. 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) Do you presently have visiting nurse or other home services: No Alcohol intake: current Alcohol intake frequency: holidays/special occasions only Alcohol type: beer Patient Tobacco Use Status: Never used Tobacco Advance Directives Date on File: 05/15/22 service: No Current occupational status: disabled Meds Allergies Allergy/AdvReac Type Severity Reaction Status Date / Time Iodinated Contrast Media Allergy Intermediate Difficulty Verified 09/20/23 22:02 [IV CONTRAST] Breathing Penicillins Allergy Mild RASH Verified 09/20/23 22:02 Sulfa (Sulfonamide Allergy Mild RASH Verified 09/20/23 22:02 Antibiotics) codeine AdvReac Mild STOMACH Verified 09/20/23 22:02 UPSET Docusate Calcium Allergy Mild rash Uncoded 09/20/23 22:02 Active Medications: Current Medications Acetaminophen (Acetaminophen 325 Mg Tablet) 975 mg PO Q6H PRN PRN Reason: Pain, Mild (Pain Scale 1-3), fever or headache Amlodipine Besylate (Amlodipine Besylate 10 Mg Tablet) 10 mg PO DAILY@1200 PAMELA; Protocol Apixaban (Apixaban 5 Mg Tablet) 5 mg PO BID [facility] Aspirin (Aspirin Enteric Coated 81 Mg Tablet.) 81 mg PO DAILY [facility] Atorvastatin Calcium (Atorvastatin Calcium 80 Mg Tablet) 80 mg PO BEDTIME [facility] Fenofibrate (Fenofibrate 160 Mg Tablet) 160 mg PO BEDTIME [facility] Fluticasone Propionate (Fluticasone Propionate Nasal 16 Gm [place]) 2 spray NOSTRIL-B DAILY PRN PRN Reason: Allergic Symptoms Fluticasone Propionate (Fluticasone Propionate 100 Mcg Blst.W.Dev) 1 puff INHALE RBID [facility] Gabapentin (Gabapentin 600 Mg Tablet) 600 mg PO BID [facility] Lactated Ringer's (Lr) 1,000 mls @ 100 mls/hr IVCONT .Q10H [facility] Last Admin: 09/21/23 04:46 Dose: 100 mls/hr Lidocaine (Lidocaine 4 % Patch Adh..Patch) 1 patch TRANSDERMA DAILY PRN PRN Reason: Back Pain Loratadine (Loratadine 10 Mg Tablet) 10 mg PO DAILY [facility] Losartan Potassium (Losartan Potassium 50 Mg Tablet) 100 mg PO DAILY [facility]; Protocol Metoclopramide HCl (Metoclopramide Hcl 10 Mg/2 Ml Vial) 5 mg IVPUSH Q6H [facility] Last Admin: 09/21/23 04:26 Dose: 5 mg Metoprolol Tartrate (Metoprolol Tartrate 25 Mg Tablet) 75 mg PO BID [facility]; Protocol Non-Formulary Medication (Diclofenac Sodium) 2 gm TOPICAL BID [facility] Non-Formulary Medication (Linaclotide [Linzess]) 145 mcg PO DAILY [facility] Omeprazole (Omeprazole 20 Mg Capsule.) 20 mg PO DAILY@0630 [facility] Sodium Chloride (0.9 % Sodium Chloride Flush 3 Ml Syringe) 3 ml IVFLUSH QSHIFT [facility] Last Admin: 09/21/23 09:26 Dose: Not Given Tamsulosin HCl (Tamsulosin Hcl 0.4 Mg Capsule) 0.4 mg PO DAILY [facility] Vitamin D (Cholecalciferol (Vitamin D3) 25 Mcg Tablet) 50 mcg PO DAILY [facility] Home Medications ?Medication ?Instructions ?Recorded ?Confirmed ?Last Taken ?Type amlodipine 10 mg tablet 10 mg PO DAILY@1200 02/17/20 09/21/23 09/20/23 History metformin 500 mg tablet 500 mg PO BID 02/17/20 09/21/23 09/20/23 History niacin 500 mg tablet,extended 500 mg PO BEDTIME cholesterol 10/25/20 09/21/23 09/20/23 History release 24 hr cholecalciferol (vitamin D3) 50 50 mcg PO DAILY 01/29/21 09/21/23 09/20/23 History mcg (2,000 unit) capsule loratadine 10 mg tablet 10 mg PO DAILY 01/29/21 09/21/23 09/20/23 History fluticasone propionate 50 2 spray intranasal DAILY PRN 12/19/21 09/21/23 Unknown History mcg/actuation nasal Allergic Symptoms spray,suspension glipizide 10 mg tablet, extended 1 tab PO BID 05/15/22 09/21/23 09/20/23 History release 24 hr metoprolol tartrate 50 mg tablet 1.5 tab PO BID 05/15/22 09/21/23 09/20/23 History losartan 100 mg tablet 100 mg PO DAILY 07/02/22 09/21/23 09/20/23 History acetaminophen 650 mg 650 mg PO Q8H PRN mild pain 09/05/22 09/21/23 Unknown History tablet,extended release gabapentin 600 mg tablet 600 mg PO BID 09/05/22 09/21/23 09/20/23 History lidocaine 5 % topical patch 1 patch topical DAILY PRN Back Pain 09/05/22 09/21/23 Unknown History atorvastatin 80 mg tablet 80 mg PO BEDTIME 12/30/22 09/21/23 09/20/23 History diclofenac sodium 3 % topical gel 2 g topical BID 09/21/23 09/21/23 09/20/23 History dulaglutide 1.5 mg/0.5 mL 1.5 mg subcut FR@0900 09/21/23 09/21/23 Unknown History subcutaneous pen injector (Trulicity) empagliflozin 10 mg tablet 10 mg PO DAILY 09/21/23 09/21/23 09/20/23 History (Jardiance) fenofibrate 160 mg tablet 160 mg PO BEDTIME cholesterol 09/21/23 09/21/23 09/20/23 History mometasone 100 mcg/actuation HFA 1 inh inhalation DAILY 09/21/23 09/21/23 09/20/23 History aerosol inhaler (Asmanex HFA) Physical Exam Vital Signs: Vital Signs: Last Vital Signs Temp 97.7 F 09/21/23 00:52 Pulse 73 09/21/23 07:00 Resp 17 09/21/23 00:52 BP 151/66 H 09/21/23 07:00 Pulse Ox 98 09/21/23 07:00 O2 Del Method Room Air 09/21/23 07:00 BMI result Body Mass Index 41.3 GENERAL APPEARANCE: in no acute distress, pleasant. NECK: no carotid bruit, no jugular venous distention. SKIN: no suspicious lesions, warm and dry. HEART: no murmurs, regular rate and rhythm. LUNGS: clear to auscultation bilaterally. ABDOMEN: soft, nontender. EXTREMITIES: no edema. PERIPHERAL PULSES: equal. Left radial artery was harvested for bypass. NEUROLOGIC: No gross deficits, AAO X 3 Objective Labs and Meds 09/21/23 05:29 09/21/23 05:29 Lab results: Laboratory Results - last 24 hr 09/20/23 09/20/23 09/20/23 21:56 22:14 22:15 WBC 8.3 RBC 4.92 Hgb 13.8 L Hct 41.4 L MCV 84.1 MCH 28.0 MCHC 33.3 RDW 14.5 Plt Count 332 MPV 9.5 Immature Gran % (Auto) 0.2 Neut % (Auto) 43.9 L Lymph % (Auto) 41.4 H [place] % (Auto) 8.3 Eos % (Auto) 4.9 H Baso % (Auto) 1.3 Lymph # (Auto) 3.5 [place] # (Auto) 0.7 Eos # (Auto) 0.4 Baso # (Auto) 0.1 Abs Immat Gran (auto) 0.02 Absolute Neuts (auto) 3.7 Absolute Nucleated RBC 0.000 Nucleated RBC % (auto) 0.0 PT 12.4 INR 1.0 Sodium 137 Potassium 3.9 Chloride 108 Carbon Dioxide 16 L Anion Gap 17 BUN 19 H Creatinine 1.19 Estim Creat Clear Calc 82.6 Estimated GFR > 60 POC Glucose 110 Random Glucose 112 Lactic Acid Calcium 9.1 D Magnesium 2.1 Total Bilirubin 0.3 Direct Bilirubin < 0.1 AST 22 ALT 23 Alkaline Phosphatase 89 Troponin I High Sens < 2.7 B-Natriuretic Peptide 49 Total Protein 7.7 Albumin 4.1 Lipase 42 Ethyl Alcohol 56 09/21/23 09/21/23 05:29 08:22 WBC 8.8 RBC 5.09 Hgb 14.2 Hct 43.4 MCV 85.3 MCH 27.9 MCHC 32.7 RDW 14.6 Plt Count 314 MPV 10.0 Immature Gran % (Auto) 0.3 Neut % (Auto) 49.8 Lymph % (Auto) 35.1 [place] % (Auto) 8.7 Eos % (Auto) 5.0 H Baso % (Auto) 1.1 Lymph # (Auto) 3.1 [place] # (Auto) 0.8 Eos # (Auto) 0.4 Baso # (Auto) 0.1 Abs Immat Gran (auto) 0.03 Absolute Neuts (auto) 4.4 Absolute Nucleated RBC 0.000 Nucleated RBC % (auto) 0.0 PT INR Sodium 137 Potassium 3.9 Chloride 106 Carbon Dioxide 20 L Anion Gap 15 BUN 21 H Creatinine 1.05 Estim Creat Clear Calc 93.7 Estimated GFR > 60 POC Glucose 93 Random Glucose 141 H Lactic Acid 1.6 Calcium 9.8 D Magnesium Total Bilirubin Direct Bilirubin AST ALT Alkaline Phosphatase Troponin I High Sens < 2.7 B-Natriuretic Peptide Total Protein Albumin Lipase Ethyl Alcohol Imaging Radiologist's impression: Impressions Head/Neck CTA 09/20/23 23:02 IMPRESSION: 1. No evidence of major vessel occlusion or significant stenosis within the intracranial circulation. 2. Mild atherosclerotic plaque of the internal carotid arteries bilaterally without evidence for significant stenosis. 3. No acute territorial infarct or hemorrhage. Assessment and Plan (1) Chest pain: Status: Acute (2) CAD (coronary artery disease): Status: Acute (3) Hypertension: Status: Acute Plan [age] year gentleman who is status post bypass surgery in the past with DE ANDA to LAD and radial to diagonal branch presenting for chest pain. He has describing a sharp left-sided chest pain. He is saying this is his anginal pain. Biomarkers are normal. ECG has nonspecific lateral T wave changes but they are improved on subsequent EKG. Blood pressure is elevated. Adding isosorbide 30 mg daily. I think he needs a stress test we will arrange this for tomorrow. Keep NPO after midnight. Thank you for allowing me to participate in the care of your patient. Please feel free to contact me if you have any questions. Procedures Date of Service Date of Service: 09/21/23
--- NOTE | 2023-09-21 11:48 | PM.EVENT ---
Event Note Date of Service: 09/21/23 Event Note: Seen and examined this morning Follow-up for chest pain Patient currently chest pain-free Patient awake, alert, in no acute distress. Alert and oriented x3. Breathing easy with no respiratory distress. Regular heart rate Seen by Cardiology, plan for stress test in a.m. we will keep NPO at midnight Further plan as per admission H and P Time Spent With Patient Time: Total time managing care of this patient today ____ minutes.
[2023-09-21 11:52] LABS: Glucose, Whole Blood 120 mg/dL (60-115)
[2023-09-21 11:53] VITALS: BP 142/72; PULSE 73; RESP 20; TEMP 36.4; O2SAT 96
[2023-09-21] MEDS: Metoprolol Tartrate 25 MG TABLET 75 MG PO (11:55)
[2023-09-21] MEDS: amLODIPine Besylate 10 MG TABLET PO (11:55)
[2023-09-21] MEDS: Isosorbide Mononitrate 30 MG TAB.ER.24H PO (11:56)
--- NOTE | 2023-09-21 16:06 | P.DS_ITS ---
DS: Providers Provider Date of Service: 09/21/23 Date of admission: 09/21/23 12:23 Date of discharge: 09/21/23 Primary care physician: Unknown Physician Consults: 09/21/23 03:42 Consult to Cardiology Routine Consulting Provider: [facility] Reason for consultation: chest pain Has provider been notified: Yes Attending physician on discharge: Kurt Parker Discharging clinician: Debbie Lora DS: Diagnosis Discharge Diagnosis (1) Chest pain: Status: Acute (2) CAD (coronary artery disease): Status: Acute (3) Hypertension: Status: Acute DS: Summary Hospital Course Hospital Course: From H&P on the day of admission Brannon Leavitt is a 58 years old man with past medical history significant for type 2 diabetes mellitus, gastroparesis, GERD, hypertension, depression, atrial flutter on Eliquis, CAD (s/p PCI to LAD + diagonal artery with multiple procedures for restenoses), s/p CABG and hyperlipidemia presents to the emergency department complaining of mid chest pain that has been going on since Friday. He described the pain as constant, dull and radiates to the left arm. Last night the pain intensified 10/10 after he ate around 7 PM. This episode was followed multiple events of nausea and vomiting. He also mentioned having some tingling sensation over his left cheek and left arm. He took 3 nitros sublingually without relief of chest pain. He denied weakness to the lower extremities, headache, dizziness, palpitations, cough or shortness on breath. He also denied abdominal pain, diarrhea, fevers or chills. He denied alcohol abuse, tobacco smoking or illicit drug use. In the ED, he was found to have stable vital signs. Blood workup showed no leukocytosis. Hemoglobin 13.9 and platelets are normal. INR is 1.0. Renal function is normal. There are no significant electrolyte imbalances. Bicarb is 16 are normal anion gap. LFTs are normal. Troponin x2 is less than 2.7 and BNP is 49. EtOH liver is 56. Head CT scan showed no acute intracranial abnormalities. Head and neck CTA showed no evidence of major vessel occlusion or significant stenosis within the intracranial circulation. For chest pain, patient was seen by Cardiology and had plan for stress test however patient elected to leave against medical advice. He was awake, alert and oriented at the time that he left AMA and he understands the risk including recurrent chest pain, heart attack, possible . He promises to follow-up with cardiology as an outpatient Time Attestation Discharge Coordination Time (in mins): 30 Quality: Safe Use of Opioids Does Pt have an Active Cancer Diagnosis on the Problem List?: No Quality: Stroke Does the patient have a stroke diagnosis?: No Physical Exam Vital Signs: Vital Signs: Last Vital Signs Temp 97.5 F 09/21/23 11:53 Pulse 73 09/21/23 11:53 Resp 20 09/21/23 11:53 BP 142/72 H 09/21/23 11:53 Pulse Ox 96 09/21/23 11:53 O2 Del Method Room Air 09/21/23 11:53 BMI result Body Mass Index 41.3 Const: General: comfortable, alert and awake Orientation/consciousness: patient oriented x3 Resp: Effort & Inspection: normal respiratory effort, able to speak in complete sentences, no respiratory distress and no use of accessory muscles Neuro: General: patient oriented x3 DS: Data Data Completed and Pending Labs on day of discharge: Laboratory Results - last 24 hr 09/20/23 09/20/23 09/20/23 21:56 22:14 22:15 WBC 8.3 RBC 4.92 Hgb 13.8 L Hct 41.4 L MCV 84.1 MCH 28.0 MCHC 33.3 RDW 14.5 Plt Count 332 MPV 9.5 Immature Gran % (Auto) 0.2 Neut % (Auto) 43.9 L Lymph % (Auto) 41.4 H [place] % (Auto) 8.3 Eos % (Auto) 4.9 H Baso % (Auto) 1.3 Lymph # (Auto) 3.5 [place] # (Auto) 0.7 Eos # (Auto) 0.4 Baso # (Auto) 0.1 Abs Immat Gran (auto) 0.02 Absolute Neuts (auto) 3.7 Absolute Nucleated RBC 0.000 Nucleated RBC % (auto) 0.0 PT 12.4 INR 1.0 Sodium 137 Potassium 3.9 Chloride 108 Carbon Dioxide 16 L Anion Gap 17 BUN 19 H Creatinine 1.19 Estim Creat Clear Calc 82.6 Estimated GFR > 60 POC Glucose 110 Random Glucose 112 Lactic Acid Calcium 9.1 D Magnesium 2.1 Total Bilirubin 0.3 Direct Bilirubin < 0.1 AST 22 ALT 23 Alkaline Phosphatase 89 Troponin I High Sens < 2.7 B-Natriuretic Peptide 49 Total Protein 7.7 Albumin 4.1 Lipase 42 Ethyl Alcohol 56 09/21/23 09/21/23 09/21/23 05:29 08:22 11:41 WBC 8.8 RBC 5.09 Hgb 14.2 Hct 43.4 MCV 85.3 MCH 27.9 MCHC 32.7 RDW 14.6 Plt Count 314 MPV 10.0 Immature Gran % (Auto) 0.3 Neut % (Auto) 49.8 Lymph % (Auto) 35.1 [place] % (Auto) 8.7 Eos % (Auto) 5.0 H Baso % (Auto) 1.1 Lymph # (Auto) 3.1 [place] # (Auto) 0.8 Eos # (Auto) 0.4 Baso # (Auto) 0.1 Abs Immat Gran (auto) 0.03 Absolute Neuts (auto) 4.4 Absolute Nucleated RBC 0.000 Nucleated RBC % (auto) 0.0 PT INR Sodium 137 Potassium 3.9 Chloride 106 Carbon Dioxide 20 L Anion Gap 15 BUN 21 H Creatinine 1.05 Estim Creat Clear Calc 93.7 Estimated GFR > 60 POC Glucose 93 120 H Random Glucose 141 H Lactic Acid 1.6 Calcium 9.8 D Magnesium Total Bilirubin Direct Bilirubin AST ALT Alkaline Phosphatase Troponin I High Sens < 2.7 B-Natriuretic Peptide Total Protein Albumin Lipase Ethyl Alcohol Discharge Plan Discharge Patient Disposition: Left Against Medical Advice Discharge Diagnosis: chest pain Referrals: Physician,Unknown J [Primary Care Provider] - 1 Week Discharge Medications: New isosorbide mononitrate 30 mg Tablet Extended Release 24 Hr 30 mg PO DAILY 90 Days Qty: 90 0RF Protocol: Hold for SBP< HOLD for SBP < : 90 Continued Eliquis 5 mg tablet 5 mg PO BID 90 Days Qty: 180 3RF esomeprazole magnesium [Nexium] 40 mg capsule,delayed release(DR/EC) 40 mg PO DAILY@0630 Qty: 90 3RF Linzess 145 mcg capsule 145 mcg PO DAILY Qty: 30 3RF atorvastatin 80 mg tablet 80 mg PO BEDTIME metoprolol tartrate 50 mg tablet 1.5 tab PO BID glipizide 10 mg tablet extended release 24hr 1 tab PO BID aspirin 81 mg Tablet,Delayed Release (Dr/Ec) 81 mg PO DAILY Qty: 30 0RF tamsulosin 0.4 mg Capsule 0.4 mg PO DAILY Qty: 30 0RF gabapentin 600 mg tablet 600 mg PO BID acetaminophen 650 mg tablet extended release 650 mg PO Q8H PRN (Reason: mild pain) lidocaine 5 % adhesive patch,medicated 1 patch topical DAILY PRN (Reason: Back Pain) diclofenac sodium 3 % gel 2 g topical BID fenofibrate 160 mg tablet 160 mg PO BEDTIME Jardiance 10 mg tablet 10 mg PO DAILY Trulicity 1.5 mg/0.5 mL pen injector 1.5 mg subcut FR@0900 Asmanex HFA 100 mcg/actuation Hfa Aerosol Inhaler 1 inh INHALATION DAILY niacin 500 mg tablet extended release 24 hr 500 mg PO BEDTIME amlodipine 10 mg tablet 10 mg PO DAILY@1200 metformin 500 mg tablet 500 mg PO BID cholecalciferol (vitamin D3) 50 mcg (2,000 unit) capsule 50 mcg PO DAILY loratadine 10 mg tablet 10 mg PO DAILY fluticasone propionate 50 mcg/actuation spray,suspension 2 spray intranasal DAILY PRN (Reason: Allergic Symptoms) Rx Instructions: 1 spray into each nostril losartan 100 mg tablet 100 mg PO DAILY Discharge Orders: Discharge Order (Routine); Ordered 09/21/23 Ordered By: Debbie Lora Print Language: [place] Care Plan Goals: left AMA Health Concerns: CAD, chest pain Plan of Treatment: you have elected to leave against medial advice despite possible risk to your health including heart attack or . . please follow up with cardiology. return with any further chest pain . Assessment: left AMA Discharge Date/Time: 09/21/23 16:11
--- NOTE | 2023-09-21 16:07 | PM.EVENT ---
Event Note Date of Service: 09/21/23 Event Note: The patient had to leave the hospital as his young child home alone with no supervision tonight. i explained to him the medical plan and the need to stay to finish work up. he understand the risk of leaving the hospital including recurrent chest pain, heart attack and possible . he agrees and promise to follow with cardiology to arrange for stress testing tomorrow. signed AMA to leave. Time Spent With Patient Time: Total time managing care of this patient today ____ minutes.
--- NOTE | 2023-09-21 16:09 | PC.NURSE ---
Pt requested to speak with this RN and paper sealer at ~1545. Stated that he needed to leave due to not having childcare for his son. TRESA Lewis and Dr. Wheeler notified and MD came to bedside. Explained that pt is due to have stress test tomorrow and educated on the risks of leaving against medical advice. Pt very plesant stated he will call fur remodeler office tomorrow and schedule outpatient stress test. Ambulated with steady gait off unit at 1609. IV removed.
[2023-09-21 16:10] LABS: Glucose, Whole Blood 126 mg/dL (60-115)
== END 2023-09-21 16:11 | disposition left against medical advice (07) | DRG 198 ==
LOC: HO.ED 09-21 03:47 → HO.EDOVER 09-21 03:58 → HO.IMC 09-21 07:41
PROVIDERS: Admitting Provider Internal Medicine; Emergency Provider Emergency Medicine; Visit Provider Physician Assistant Medical
DX: R07.9 Chest pain, unspecified (principal); I25.10 Atherosclerotic heart disease of native coronary artery without angina pectoris; E11.40 Type 2 diabetes mellitus with diabetic neuropathy, unspecified; I48.92 Unspecified atrial flutter; N40.0 Benign prostatic hyperplasia without lower urinary tract symptoms; I10 Essential (primary) hypertension; R20.0 Anesthesia of skin; I69.354 Hemiplegia and hemiparesis following cerebral infarction affecting left non-dominant side; Y90.2 Blood alcohol level of 40-59 mg/100 ml; E78.5 Hyperlipidemia, unspecified; Z95.5 Presence of coronary angioplasty implant and graft; Z79.01 Long term (current) use of anticoagulants; Z79.82 Long term (current) use of aspirin; Z79.84 Long term (current) use of oral hypoglycemic drugs; Z79.899 Other long term (current) drug therapy
CPT/HCPCS: 36415; 70496; 70498; 80048; 80076; 80307; 82947; 83605; 83690; 83735; 83880; 84484; 85025; 85610; 93005; 99285; J2270; J2470; J2765; J7120; Q9967

== ENCOUNTER → 2023-09-20 21:58 | Outpatient (BNV) | payer MEDICAID, SELFPAY | PROVIDERS: Admitting Provider Internal Medicine; Emergency Provider Emergency Medicine; Visit Provider Internal Medicine Cardiovascular Disease | DX: R94.31 Abnormal electrocardiogram [ECG] [EKG] (principal) | CPT/HCPCS: 93010 ==

== ENCOUNTER → 2023-09-21 03:39 | Outpatient (BNV) | payer MEDICAID, SELFPAY | PROVIDERS: Admitting Provider Internal Medicine; Emergency Provider Emergency Medicine; Visit Provider Internal Medicine Cardiovascular Disease | DX: R94.31 Abnormal electrocardiogram [ECG] [EKG] (principal) | CPT/HCPCS: 93010; 99223 ==

== ENCOUNTER → 2023-09-21 03:39 | Outpatient (BNV) | payer MEDICAID, SELFPAY | PROVIDERS: Admitting Provider Internal Medicine; Emergency Provider Emergency Medicine; Visit Provider Internal Medicine | DX: R07.89 Other chest pain (principal); K31.84 Gastroparesis; Z53.29 Procedure and treatment not carried out because of patient's decision for other reasons | CPT/HCPCS: 99236; 99499 ==

== ENCOUNTER 2023-10-17 12:41 | Outpatient (REF) | payer MEDICAID, SELFPAY ==
--- NOTE | ~2023-10-17 | XR_ITS ---
EXAMINATION: XR CHEST CLINICAL INFORMATION: COPD exacerbation, cough COMPARISON: Chest radiograph 09/05/2022 TECHNIQUE: 2 views of the chest were obtained. FINDINGS: No focal consolidation, pulmonary edema, or pleural effusion. Stable cardiomediastinal silhouette. XR/XR chest 2V IMPRESSION: No acute cardiopulmonary findings.
== END 2023-10-17 12:42 | disposition home or self-care (01) ==
LOC: HO.HHCX 12:41
PROVIDERS: Visit Provider Family Medicine
DX: J44.1 Chronic obstructive pulmonary disease with (acute) exacerbation (principal)
CPT/HCPCS: 71046

== ENCOUNTER 2023-11-02 03:01 | Emergency (ER) | payer MEDICAID, SELFPAY ==
--- NOTE | ~2023-11-02 | CT_ITS ---
EXAMINATION: CT ABDOMEN PELVIS WITHOUT IV CONTRAST CLINICAL INFORMATION: epigastric pain. Abdominal pain. Diarrhea. COMPARISON: CT abdomen and pelvis 01/17/2023. CT abdomen and pelvis 10/28/2022. TECHNIQUE: Unenhanced CT of the abdomen and pelvis Intravenous Contrast: None This CT examination was performed using dose optimization techniques as appropriate, variously including the following: *Automated exposure control *Adjustment of mA and/or kV according to patient size (this includes techniques or standardized protocols for targeted exams where dose is matched to indication/reason for exam; i.e. extremities or head) *Use of iterative reconstruction technique DLP: 860 mGy-cm FINDINGS: The incidentally visualized lung bases are clear. The liver is enlarged measuring 25 cm in maximum dimension. Normal appearance of the gallbladder. Normal appearance of the pancreas, spleen and adrenal glands. 2.5 cm exophytic rounded low density focus of the anterior polar segment of the right kidney most consistent with a benign, simple cyst requiring no additional imaging follow-up. 1 cm rounded low-density benign-appearing simple cyst within the inferior left kidney requiring no additional imaging follow-up. No urolithiasis. No hydronephrosis or perinephric inflammatory changes. Decompressed urinary bladder. No intestinal dilatation or mural thickening. The appendix is not visualized. No free intraperitoneal gas collection. Mild reticulation of the small bowel mesenteric fat adjacent to the root of small bowel mesentery (series 7 image 50). These findings are mildly suspicious for mesenteric panniculitis. No abdominal or pelvic lymphadenopathy. Normal appearance of the stomach. No abdominal wall hernias. Prostate and seminal vesicles are normal in appearance. Mild scattered calcific atherosclerosis. No suspicious skeletal abnormalities identified. Mild-moderate multilevel facet and endplate hypertrophic changes of the lumbar spine. Partial visualization of median sternotomy wires. CT/CT abdomen pelvis wo IV con IMPRESSION: *Mild reticulation of the small bowel mesenteric fat adjacent to the root of the small bowel mesentery. These findings are mildly suspicious for mesenteric panniculitis. No additional acute abnormalities identified. *Hepatomegaly. Electronically signed by: Kevin Thao MD 11/02/2023 04:48 AM EDT
[2023-11-02 03:14] VITALS: BP 172/81; PULSE 80; RESP 18; TEMP 36.4; O2SAT 98; BMI 36.9
--- NOTE | 2023-11-02 03:18 | ECG_ITS ---
Test Reason : ABDOMINAL PAIN Blood Pressure : / mmHG Vent. Rate : 083 BPM Atrial Rate : 083 BPM P-R Int : 130 ms QRS Dur : 094 ms QT Int : 382 ms P-R-T Axes : 005 019 061 degrees QTc Int : 448 ms Normal sinus rhythm Nonspecific T wave abnormality Abnormal ECG When compared with ECG of 21-SEP-2023 00:33, No significant change was found Referred By: Isabella Metzger Electronically Signed By:LARA AMAYA
--- NOTE | 2023-11-02 03:20 | ED_ITS ---
HPI - Abdominal Pain General Chief Complaint: Abdominal Pain Stated Complaint: pain Time Seen by Provider: 11/02/23 03:14 Source: patient Mode of arrival: ambulatory Limitations: no limitations History of Present Illness ED Provider: Dr. Isabella Metzger HPI narrative: Patient comes to the emergency room complaining of epigastric pain that has been present for about 8 hours. Patient states that it started after eating a chicken dish. However, patient states that for the last 3-4 days he has been having intermittent abdominal pain. Today patient took a dose of Pepto-Bismol to help with the nausea and the epigastric pain. Patient states he has been vomiting as well. Denies chest pain or shortness of breath. Related Data Home Medications ?Medication ?Instructions ?Recorded ?Confirmed amlodipine 10 mg tablet 10 mg PO DAILY@1200 02/17/20 09/21/23 metformin 500 mg tablet 500 mg PO BID 02/17/20 09/21/23 niacin 500 mg tablet,extended 500 mg PO BEDTIME cholesterol 10/25/20 09/21/23 release 24 hr cholecalciferol (vitamin D3) 50 50 mcg PO DAILY 01/29/21 09/21/23 mcg (2,000 unit) capsule loratadine 10 mg tablet 10 mg PO DAILY 01/29/21 09/21/23 fluticasone propionate 50 2 spray intranasal DAILY PRN 12/19/21 09/21/23 mcg/actuation nasal Allergic Symptoms spray,suspension glipizide 10 mg tablet, extended 1 tab PO BID 05/15/22 09/21/23 release 24 hr metoprolol tartrate 50 mg tablet 1.5 tab PO BID 05/15/22 09/21/23 losartan 100 mg tablet 100 mg PO DAILY 07/02/22 09/21/23 acetaminophen 650 mg 650 mg PO Q8H PRN mild pain 09/05/22 09/21/23 tablet,extended release gabapentin 600 mg tablet 600 mg PO BID 09/05/22 09/21/23 lidocaine 5 % topical patch 1 patch topical DAILY PRN Back Pain 09/05/22 09/21/23 atorvastatin 80 mg tablet 80 mg PO BEDTIME 12/30/22 09/21/23 diclofenac sodium 3 % topical gel 2 g topical BID 09/21/23 09/21/23 dulaglutide 1.5 mg/0.5 mL 1.5 mg subcut FR@0900 09/21/23 09/21/23 subcutaneous pen injector (Trulicity) empagliflozin 10 mg tablet 10 mg PO DAILY 09/21/23 09/21/23 (Jardiance) fenofibrate 160 mg tablet 160 mg PO BEDTIME cholesterol 09/21/23 09/21/23 mometasone 100 mcg/actuation HFA 1 inh inhalation DAILY 09/21/23 09/21/23 aerosol inhaler (Asmanex HFA) Previous Rx's ?Medication ?Instructions ?Recorded aspirin 81 mg tablet,delayed 81 mg PO DAILY #30 tabs 05/16/22 release tamsulosin 0.4 mg capsule 0.4 mg PO DAILY #30 caps 05/16/22 esomeprazole magnesium 40 mg 40 mg PO DAILY@0630 #90 caps 02/28/23 capsule,delayed release (Nexium) linaclotide 145 mcg capsule 145 mcg PO DAILY #30 caps 07/30/23 (Linzess) isosorbide mononitrate 30 mg 30 mg PO DAILY 90 days #90 tabs 09/21/23 tablet,extended release 24 hr apixaban 5 mg tablet (Eliquis) 5 mg PO BID 90 days #180 tabs 10/24/23 loperamide 2 mg tablet 2 mg PO Q4H PRN loose stool #20 11/02/23 tabs oxycodone 5 mg tablet 5 mg PO BID PRN pain #7 tabs 11/02/23 Allergies Allergy/AdvReac Type Severity Reaction Status Date / Time Iodinated Contrast Media Allergy Intermediate Difficulty Verified 11/02/23 03:16 [IV CONTRAST] Breathing Penicillins Allergy Mild RASH Verified 11/02/23 03:16 Sulfa (Sulfonamide Allergy Mild RASH Verified 11/02/23 03:16 Antibiotics) codeine AdvReac Mild STOMACH Verified 11/02/23 03:16 UPSET Docusate Calcium Allergy Mild rash Uncoded 09/20/23 22:02 Review of Systems Review of Systems Constitutional : No Weight loss, No Fever, No Chills, No Night Sweats, No Fatigue, No Malaise ENT/Mouth : No Hearing loss, No Ear Pain, No Nasal Congestion, No Sinus Pain, No Hoarseness, No sore throat, No Rhinorrhea, No Swallowing Difficulty Eyes: No Eye Pain, No Swelling, No Redness, No Foreign Body, No Discharge, No Vision Changes Cardiovascular : No Chest Pain, No SOB, No Dyspnea on Exertion, No Orthopnea, No Edema, No Palpitations Respiratory : No Cough, No Sputum, No Wheezing, No Smoke Exposure, No Dyspnea Gastrointestinal : Complaining of nausea vomiting, diarrhea, also complaining of epigastric pain, nonradiating Genitourinary : no irregular bleeding, No Dysuria, No Urinary Frequency, No Hematuria, No Urinary Incontinence, No Urgency, No Flank Pain, No Urinary Flow Changes, No Hesitancy Musculoskeletal : No joint pain, No Myalgias, No Joint Swelling Skin : No Skin Lesions, No rash Neuro : No Weakness, No Numbness, No Paresthesias, No Loss of Consciousness, No Dizziness, No Headache Psych : No Anxiety/Panic, No Depression, No SI/HI/AH/VH, No Social Issues, Heme/Lymph: No Bruising, No Bleeding,No Lymphadenopathy Endocrine : No Polyuria, No Polydipsia, No Temperature Intolerance PMFSH Past Medical History Medical History TIA (transient ischemic attack) Chest pain Gastroparesis Anal fistula Low back pain Perianal abscess History of panic attacks Hx of myocardial infarction Arthritis GERD (gastroesophageal reflux disease) Scoliosis Asthma Tubular adenoma Migraines Gout Seizures Depression Hypertension Diabetes Adhesive capsulitis of left shoulder Atrial flutter CAD (coronary artery disease) Cellulitis Surgical History (Updated 09/29/23 @ 00:02 by Noam Sutherland) History of incision and drainage (~10/19/21) History of umbilical hernia repair History of esophagogastroduodenoscopy (EGD) H/O colonoscopy History of open heart surgery History of sinus surgery History of appendectomy History of angioplasty Family History Family History Father No problems noted. Mother History of stomach cancer History of liver cancer Brother No problems noted. Social History 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 personal care home administrator to a significant other at home: Yes (children) Do you presently have visiting nurse or other home services: No Alcohol intake: current Alcohol intake frequency: holidays/special occasions only Alcohol type: beer Patient Tobacco Use Status: Never used Tobacco Smoked in Last 30 Days: No Use of substances other than those prescribed or required for medical reasons: No Advance Directives: Yes Advance Directives on File: Yes Advance Directives Date on File: 05/15/22 Do you have a plan to hurt others: No Plan service: No Current occupational status: disabled Physical Exam ED Vital Signs: Vital Signs - 24 hr 11/02/23 03:14 Temperature 97.5 F Pulse Rate 80 Respiratory Rate 18 Blood Pressure 172/81 H Pulse Oximetry 98 Oxygen Delivery Method Room Air BMI result Body Mass Index 36.9 Const Other: Appearance: Alert. Oriented X3. Patient looks uncomfortable, nauseous Eyes: Pupils equal, round and reactive to light. ENT: Pharynx normal. Neck: Normal inspection. Neck supple. No lymph nodes noted. No crepitus CVS: Normal heart rate and rhythm. Pulses normal. Normal S1 and S2 Respiratory: No respiratory distress. Breath sounds normal. No Wheezing. No rales Abdomen: Soft tenderness to palpation in epigastric area with rebound and guarding Skin: Skin warm and dry. Normal skin color. Normal skin turgor. Extremities: No lower extremity edema. No Lacerations. No Rash Neuro: Oriented X 3. No motor deficit. No sensory deficit. Moving all extremities. No slurred speech. CN 2 through 12 grossly intact Psych:cooperative, normal affect Course Course Course Narrative: -all of patient's labs and imaging pending -patient receiving IV fluids, Zofran and morphine for symptomatic treatment Medical Decision Making Medical Decision Making [facility] Narrative: My interpretation of EKG: Normal sinus rhythm, heart rate 83, no ST segment depression or elevation, no T-wave inversion, QTC 448 -my interpretation of labs: Normal hematology, normal chemistry, normal LFTs, normal troponin and lipase -my interpretation of CT scan, no obvious abnormality. -radiology report, mesenteric panniculitis. -patient is still having diarrhea. According to the patient, he is having very small amount of stool, few drops at a time. Patient states that he has since he took loperamide it significantly decreased Differential Diagnosis Differential Diagnoses: The differential diagnosis associated with the presentation includes (Pancreatitis, acute cholecystitis, small-bowel obstruction, perforation gastritis, gastroenteritis, C diff) Admission/Observation Consideration of admission/observation: Escalation of care including admission/observation considered (Considering patient's amount of pain on initial presentation, admission was considered) Lab Data [facility] Lab Attestation statement: I reviewed the patient's lab results. 11/02/23 03:30 11/02/23 03:30 Labs: Lab Results 11/02/23 Range/Units 03:30 WBC 10.1 (4.8-10.8) X10*3/uL RBC 5.21 (4.60-5.80) X10*6/uL Hgb 14.1 (14.0-18.0) g/dl Hct 43.6 (42.0-52.0) % MCV 83.7 (80.0-98.0) fL MCH 27.1 (27.0-33.0) pg MCHC 32.3 (31.0-36.0) g/dl RDW 14.3 (11.0-16.0) % Plt Count 377 (160-400) X10*3/uL MPV 9.8 (9.4-12.4) fL Immature Gran % (Auto) 0.3 (0.0-0.4) % Neut % (Auto) 52.6 (45-73) % Lymph % (Auto) 35.3 (20-40) % Conway % (Auto) 7.8 (2-11) % Eos % (Auto) 2.6 (0-4) % Baso % (Auto) 1.4 (0-2) % Lymph # (Auto) 3.6 (1.2-4.9) X10*3/uL Conway # (Auto) 0.8 (0.1-1.2) X10*3/uL Eos # (Auto) 0.3 (0.0-0.4) X10*3/uL Baso # (Auto) 0.1 (0.0-0.2) X10*3/uL Abs Immat Gran (auto) 0.03 (0.00-0.03) X10*3/uL Absolute Neuts (auto) 5.3 (2.0-8.3) x10*3/uL Absolute Nucleated RBC 0.000 (0.0-0.012) X10*3/uL Nucleated RBC % (auto) 0.0 (0.0-0.2) /100WBC Sodium 138 (135-145) mmol/L Potassium 4.3 (3.3-5.1) mmol/L Chloride 108 (96-108) mmol/L Carbon Dioxide 20 L (22-29) mmol/L Anion Gap 14 (12-20) BUN 19 H (9-16) mg/dL Creatinine 1.24 (0.5-1.4) mg/dL Estim Creat Clear Calc 79.6 Estimated GFR 60 Random Glucose 156 H (60-115) mg/dL Calcium 9.9 (8.4-10.2) mg/dL Magnesium 2.3 (1.6-2.6) mg/dL Total Bilirubin 0.3 (0.0-1.0) mg/dL Direct Bilirubin 0.1 (0.0-0.5) mg/dL AST 24 (5-37) U/L ALT 31 (0-40) U/L Alkaline Phosphatase 101 (39-117) U/L Troponin I High Sens < 2.7 (<3.5-35.0) ng/L Total Protein 8.0 (6.5-8.0) g/dL Albumin 4.5 (3.5-5.0) g/dL Lipase 41 (8-78) U/L Independent Interpretation I performed an independent interpretation of an: CT Scan Radiology Impression Discussion of test interpretation with radiology: I have reviewed the radiologist's reading. Radiologist Impression: FINDINGS: The incidentally visualized lung bases are clear. The liver is enlarged measuring 25 cm in maximum dimension. Normal appearance of the gallbladder. Normal appearance of the pancreas, spleen and adrenal glands. 2.5 cm exophytic rounded low density focus of the anterior polar segment of the right kidney most consistent with a benign, simple cyst requiring no additional imaging follow-up. 1 cm rounded low-density benign-appearing simple cyst within the inferior left kidney requiring no additional imaging follow-up. No urolithiasis. No hydronephrosis or perinephric inflammatory changes. Decompressed urinary bladder. No intestinal dilatation or mural thickening. The appendix is not visualized. No free intraperitoneal gas collection. Mild reticulation of the small bowel mesenteric fat adjacent to the root of small bowel mesentery (series 7 image 50). These findings are mildly suspicious for mesenteric panniculitis. No abdominal or pelvic lymphadenopathy. Normal appearance of the stomach. No abdominal wall hernias. Prostate and seminal vesicles are normal in appearance. Mild scattered calcific atherosclerosis. No suspicious skeletal abnormalities identified. Mild-moderate multilevel facet and endplate hypertrophic changes of the lumbar spine. Partial visualization of median sternotomy wires. CT/CT abdomen pelvis wo IV con IMPRESSION: *Mild reticulation of the small bowel mesenteric fat adjacent to the root of the small bowel mesentery. These findings are mildly suspicious for mesenteric panniculitis. No additional acute abnormalities identified. *Hepatomegaly. Medications Administered Discontinued Medications Generic Name Dose Route Start Last Admin Trade Name Freq PRN Reason Stop Dose Admin Sodium Chloride 1,000 mls @ 999 mls/hr 11/02/23 03:18 11/02/23 04:36 Ns IVCONT 11/02/23 04:18 Infused .Q1H1M ONE Infusion Loperamide HCl 4 mg 11/02/23 03:37 11/02/23 03:40 Loperamide Hcl 2 Mg Capsule PO 11/02/23 03:38 4 mg ONCE ONE Administration Morphine Sulfate 4 mg 11/02/23 03:19 11/02/23 03:34 Morphine Sulfate 4 Mg/Ml Cartridge IVPUSH 11/02/23 03:20 4 mg ONCE ONE Administration Protocol Ondansetron HCl 4 mg 11/02/23 03:19 11/02/23 03:34 Ondansetron Hcl 4 Mg/2 Ml Vial IVPUSH 11/02/23 03:20 4 mg ONCE ONE Administration Critical Care Time Critical Care Time Critical Care Time: Yes Total Critical Care Time: 60 Attestation: I have personally provided critical care time. Time includes review of lab data, radiology results, discussion with consultants, and monitoring for potential decompensation. Intervention performed as documented. Discharge Plan Discharge Clinical Impression: Mesenteric panniculitis, Abdominal pain, Nausea vomiting and diarrhea Patient Disposition: Home, Self-Care Instructions: Acute Nausea and Vomiting (ED), Acute Diarrhea (ED), Acute Abdominal Pain (ED), Abdominal Pain (ED) Additional Instructions: Please follow-up with your primary care physician tomorrow. If you have any worsening or new symptoms, please return to the emergency room or call 911 Prescriptions: New loperamide 2 mg tablet 2 mg PO Q4H PRN (Reason: loose stool) Qty: 20 0RF Rx Instructions: administer after each loose stool until symptoms controlled; do not exceed 8 mg per 24 hrs oxycodone 5 mg tablet 5 mg PO BID PRN (Reason: pain) Qty: 7 0RF Rx Instructions: Partial Fill upon patient request. No Action esomeprazole magnesium [Nexium] 40 mg capsule,delayed release(DR/EC) 40 mg PO DAILY@0630 Qty: 90 3RF Linzess 145 mcg capsule 145 mcg PO DAILY Qty: 30 3RF Eliquis 5 mg tablet 5 mg PO BID 90 Days Qty: 180 3RF atorvastatin 80 mg tablet 80 mg PO BEDTIME metoprolol tartrate 50 mg tablet 1.5 tab PO BID glipizide 10 mg tablet extended release 24hr 1 tab PO BID aspirin 81 mg Tablet,Delayed Release (Dr/Ec) 81 mg PO DAILY Qty: 30 0RF tamsulosin 0.4 mg Capsule 0.4 mg PO DAILY Qty: 30 0RF gabapentin 600 mg tablet 600 mg PO BID acetaminophen 650 mg tablet extended release 650 mg PO Q8H PRN (Reason: mild pain) lidocaine 5 % adhesive patch,medicated 1 patch topical DAILY PRN (Reason: Back Pain) diclofenac sodium 3 % gel 2 g topical BID fenofibrate 160 mg tablet 160 mg PO BEDTIME Jardiance 10 mg tablet 10 mg PO DAILY Trulicity 1.5 mg/0.5 mL pen injector 1.5 mg subcut FR@0900 Asmanex HFA 100 mcg/actuation Hfa Aerosol Inhaler 1 inh INHALATION DAILY isosorbide mononitrate 30 mg Tablet Extended Release 24 Hr 30 mg PO DAILY 90 Days Qty: 90 0RF Protocol: Hold for SBP< HOLD for SBP < : 90 niacin 500 mg tablet extended release 24 hr 500 mg PO BEDTIME amlodipine 10 mg tablet 10 mg PO DAILY@1200 metformin 500 mg tablet 500 mg PO BID cholecalciferol (vitamin D3) 50 mcg (2,000 unit) capsule 50 mcg PO DAILY loratadine 10 mg tablet 10 mg PO DAILY fluticasone propionate 50 mcg/actuation spray,suspension 2 spray intranasal DAILY PRN (Reason: Allergic Symptoms) Rx Instructions: 1 spray into each nostril losartan 100 mg tablet 100 mg PO DAILY Print Language: Telugu
[2023-11-02 03:33] LABS: MANUAL DIFF FLAG NO
[2023-11-02 03:34] LABS: Basophils Absolute Auto 0.1 X10*3/uL (0.0-0.2); Basophils Percent Auto 1.4 % (0-2); Eosinophils Absolute Auto 0.3 X10*3/uL (0.0-0.4); Eosinophils Percent Auto 2.6 % (0-4); Hematocrit 43.6 % (42.0-52.0); Hemoglobin 14.1 g/dl (14.0-18.0); Imm Gran Abs Auto 0.03 X10*3/uL (0.00-0.03); Imm Gran Pct Auto 0.3 % (0.0-0.4); Lymphocytes Absolute Auto 3.6 X10*3/uL (1.2-4.9); Lymphocytes Percent Auto 35.3 % (20-40); Mean Corpuscular HGB Conc 32.3 g/dl (31.0-36.0); Mean Corpuscular Hemoglobin 27.1 pg (27.0-33.0); Mean Corpuscular Volume 83.7 fL (80.0-98.0); Mean Platelet Volume 9.8 fL (9.4-12.4); Monocytes Absolute Auto 0.8 X10*3/uL (0.1-1.2); Monocytes Percent Auto 7.8 % (2-11); Neutrophils Absolute Auto 5.3 x10*3/uL (2.0-8.3); Neutrophils Percent Auto 52.6 % (45-73); Platelet Count 377 X10*3/uL (160-400); Red Blood Count 5.21 X10*6/uL (4.60-5.80); Red Cell Distribution Width 14.3 % (11.0-16.0); White Blood Count 10.1 X10*3/uL (4.8-10.8)
[2023-11-02] MEDS: ondansetron HCL 4 MG/2 ML VIAL IVPUSH (03:34)
[2023-11-02] MEDS: Morphine Sulfate 4 MG/ML CARTRIDGE IVPUSH (03:34)
[2023-11-02] MEDS: 0.9 % Sodium Chloride 1,000 ML 999 ML IVCONT (03:34)
[2023-11-02] MEDS: Loperamide HCl 2 MG CAPSULE 4 MG PO (03:40)
[2023-11-02 03:54] LABS: Alanine Aminotransferase 31 U/L (0-40); Albumin Level 4.5 g/dL (3.5-5.0); Alkaline Phosphatase 101 U/L (39-117); Anion Gap 14 (12-20); Aspartate Amino Transferase 24 U/L (5-37); Bilirubin Direct 0.1 mg/dL (0.0-0.5); Bilirubin Total 0.3 mg/dL (0.0-1.0); Blood Urea Nitrogen 19 mg/dL (9-16); Calcium 9.9 mg/dL (8.4-10.2); Carbon Dioxide 20 mmol/L (22-29); Chloride 108 mmol/L (96-108); Creatinine Clr Calc Pharmacy 79.6; Estimated Glomerular Filt Rate 60; Glucose Random 156 mg/dL (60-115); Lipase 41 U/L (8-78); Magnesium 2.3 mg/dL (1.6-2.6); Potassium 4.3 mmol/L (3.3-5.1); Sodium 138 mmol/L (135-145)
[2023-11-02 04:00] VITALS: BP 166/86; PULSE 78; RESP 16; TEMP 36.4; O2SAT 98
[2023-11-02 04:01] LABS: Troponin-I High Sensitivity < 2.7 ng/L (<3.5-35.0)
[2023-11-02] MEDS: oxyCODONE HCl Immed Release 5 MG TABLET PO (05:33)
[2023-11-02 05:36] VITALS: BP 166/86; PULSE 78; RESP 16; TEMP 36.4; O2SAT 98
== END 2023-11-02 05:37 | disposition home or self-care (01) ==
PROVIDERS: Emergency Provider Emergency Medicine
DX: K65.4 Sclerosing mesenteritis (principal); R10.13 Epigastric pain; R11.2 Nausea with vomiting, unspecified; R19.7 Diarrhea, unspecified; R94.31 Abnormal electrocardiogram [ECG] [EKG]; Z79.899 Other long term (current) drug therapy
CPT/HCPCS: 36415; 74176; 80048; 80076; 83690; 83735; 84484; 85025; 93005; 96361; 96374; 99284; 99285; J2270; J2405

== ENCOUNTER 2024-01-09 08:37 | Outpatient (AMB) | payer MEDICAID, SELFPAY ==
--- NOTE | 2024-01-09 08:42 | A.OFFVIS_ITS ---
Vital Signs 01/09/24 08:48 Height 5 ft 9 in Weight 247 lb 9.266 oz BMI 36.6 BP 154/82 H Blood Pressure Location Lt brachial Position Sitting Pulse 87 Pulse Source Pulse Oximeter Pulse Oximetry (%) 97 Oxygen Delivery Method Room Air Intake Visit Reasons: Osteoarthritis/CM Intake Note: Patient presents for Osteoarthritis. Cardiology Specialist Required: Yes Cardiology Specialist Language: Electrophysiology Tech Services: Cardiology Specialist Present Cardiology Specialist Name: Brayden [id number] Information Interpreted: non-clinical & clinical Allergies Iodinated Contrast Media [IV CONTRAST] Allergy (Intermediate, Verified 11/02/23 03:16) Difficulty Breathing Penicillins Allergy (Mild, Verified 11/02/23 03:16) RASH Sulfa (Sulfonamide Antibiotics) Allergy (Mild, Verified 11/02/23 03:16) RASH codeine Adverse Reaction (Mild, Verified 11/02/23 03:16) STOMACH UPSET Docusate Calcium Allergy (Mild, Uncoded 09/20/23 22:02) rash Medication List - Last Reconciled 01/09/24 by Sangita Adhikari MD acetaminophen ER 650 mg PO Q8H PRN allopurinol 100 mg PO DAILY amlodipine 10 mg PO DAILY@1200 apixaban (Eliquis) 5 mg PO BID 90 days aspirin 81 mg PO DAILY atorvastatin 80 mg PO BEDTIME cholecalciferol (vitamin D3) 50 mcg PO DAILY colchicine 0.6 mg PO DAILY diclofenac sodium 3% 2 grams topical BID diclofenac sodium 3% 1 appl topical BID dulaglutide (Trulicity) 1.5 mg subcut FR@0900 empagliflozin (Jardiance) 10 mg PO DAILY esomeprazole magnesium (Nexium) 40 mg PO DAILY@0630 fenofibrate 160 mg PO BEDTIME fluticasone propionate 50 mcg/actuation 2 sprays intranasal DAILY PRN gabapentin 600 mg PO BID glipizide ER 1 tab PO BID isosorbide mononitrate ER 30 mg PO QPM lidocaine 5% 1 patch topical DAILY PRN linaclotide (Linzess) 145 mcg PO DAILY loperamide 2 mg PO Q4H PRN loratadine 10 mg PO DAILY losartan 100 mg PO DAILY metformin 500 mg PO BID metoprolol tartrate 1.5 tabs PO BID mometasone 100 mcg/actuation (Asmanex HFA) 1 inh inhalation DAILY niacin ER 500 mg PO BEDTIME oxycodone 5 mg PO BID PRN tamsulosin 0.4 mg PO DAILY HPI Comments Details: Patient is a 58-year-old gentleman with hypertension, diabetes, AFib on Eliquis and benign prostate hypertension who presents for evaluation of polyarthralgias Patient states that he has been pain for the past 3-4 years. Pain involving the left shoulder, bilateral knees and the fingers of the hands. Has noted swelling to the knees in the past but no swelling in the hands No prolonged AM stiffness States that 2 years ago he went to the ED with swollen knees and was told he had gout. No arthocentesis was done. Given medication and sent home. 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 No family history of RA [facility] Medical History TIA (transient ischemic attack) Chest pain Gastroparesis Anal fistula Low back pain Perianal abscess History of panic attacks Hx of myocardial infarction Arthritis GERD (gastroesophageal reflux disease) Scoliosis Asthma Tubular adenoma Migraines Gout Seizures Depression Hypertension Diabetes Adhesive capsulitis of left shoulder Atrial flutter CAD (coronary artery disease) Cellulitis Surgical History History of incision and drainage (~10/19/21) History of umbilical hernia repair History of esophagogastroduodenoscopy (EGD) H/O colonoscopy History of open heart surgery History of sinus surgery History of appendectomy History of angioplasty Family History Father No problems noted. Mother History of stomach cancer History of liver cancer Brother No problems noted. 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 palliative care specialist to a significant other at home: Yes (children) Do you presently have visiting nurse or other home services: No Alcohol intake: current Alcohol intake frequency: holidays/special occasions only Alcohol type: beer Patient Tobacco Use Status: Never used Tobacco Advance Directives Date on File: 05/15/22 service: No Current occupational status: disabled Review of Systems Const Details: Review of Systems Constitutional: Denies fever, chills, weight loss ENT: Denies vision changes, eye pain or eye redness, dental caries, dry mouth GI: Denies nausea, vomiting, diarrhea, abdominal pain, change in BM Pulm: Denies SOB, LOBO, hemoptysis, wheezing Cards: Denies chest pain, palpitations Skin: Denies Raynaud's, rash, nail changes, photosensitivity, CONSUMER INSIGHTS SPECIALIST: Denies headaches, weakness, paresthesias, recurrent falls MSK: as per HPI All other systems reviewed and are unremarkable except noted above Physical Exam Vital Signs: Last Vital Signs Pulse 87 01/09/24 08:48 BP 154/82 H 01/09/24 08:48 Pulse Ox 97 01/09/24 08:48 Oxygen Delivery Method Room Air 01/09/24 08:48 BMI result Body Mass Index 36.6 Physical Examination CONSTITUITIONAL Patient alert and cooperative. Well appearing and in no apparent painful distress HEENT Conjunctiva and sclera clear. ?Pupils equal round and reactive to light. ?No lymphadenopathy. ?Normal dentition. No oral or nasal ulcers noted. No evidence of discoid rash to the ivett of ears. No tophi noted in the ears. CHEST/RESPIRATORY SYSTEM Normal respiratory effort and able to speak in complete sentences. ?Clear to auscultation bilaterally. ?No crackles, rales, rhonchi, wheezes heard. CARDIAC SYSTEM Regular rate and rhythm. ?S1 and S2 heard no murmurs. ?Radial pulses intact bilaterally MSK Hands: ?Good outreach manager strength bilaterally - 5/5. ?No synovitis noted to the MCPs, PIPs or DIPs. ?Heberden's nodes noted to the DIPs and Valeriy's nodes noted to the PIPs. Wrists: ?Full range of motion at the wrists without pain. ?No tenderness to palpation or synovitis noted to the wrists. Elbows: Full range of motion without pain. No tenderness, weakness, swelling, increased warmth or erythema. Tophi noted to the right elbow Shoulders: Full range of motion without pain. No tenderness, weakness, swelling, increased warmth or erythema. Hips: Full range of motion without pain. Hip bursa: No tenderness to palpation Knees: ?Full range of motion. ?No tenderness, swelling, increased warmth or erythema.? Small effusion noted on the right knee with bilateral crepitations Ankles: Full range of motion. ?No tenderness, swelling, increased warmth or erythema.? Feet: ?Negative squeeze test. ?No tenderness to palpation or swelling of the MTPs. Tender points:??No tenderness to palpation of the neck, shoulders, chest, elbows, hips, buttocks or knees. SKIN Skin intact without rashes. Office Procedures AMB Joint Injection/Aspiration Joint Injection/Aspiration Details: Procedure was explained to the patient and consent was obtained. ? The area of interest was identified and confirmed with patient. ?This was subsequently cleaned with chlorhexidine x3. ? The area was then anesthetized using ethyl chloride spray. 40 mg Kenalog with 1 cc 1% lidocaine was injected without issue. ?Minimal to no bleeding. ?Patient tolerated procedure. Primary Site: left knee Prep: site was prepped using aseptic technique and ethochloride spray was applied Injected: 40 mg of, Kenalog, with 1 mL of, 1% plain lidocaine and in the joint Approach Used: medial parapatellar Procedure: The patient tolerated the procedure well Coding 27908 - Large joint Procedure code (CPT) selection complete AMB Joint Injection/Aspiration Joint Injection/Aspiration Details: Procedure was explained to the patient and consent was obtained. ? The area of interest was identified and confirmed with patient. ?This was subsequently cleaned with chlorhexidine x3. ? The area was then anesthetized using ethyl chloride spray. 40 mg Kenalog with 1 cc 1% lidocaine was injected without issue. ?Minimal to no bleeding. ?Patient tolerated procedure. Primary Site: right knee Prep: site was prepped using aseptic technique and ethochloride spray was applied Injected: 40 mg of, Kenalog, with 1 mL of, 1% plain lidocaine and in the joint Approach Used: medial parapatellar Procedure: The patient tolerated the procedure well Coding 32867 - Large joint Procedure code (CPT) selection complete Office Meds Kenalog 40 mg/mL suspension for injection Performing Provider: Sangita Adhikari MD Performing Location: [facility] Administered by: Sangita dAhikari MD on 01/09/24 09:40 Dose Route Admin Location Dispensed Lot Number Expiration Date [facility] It Technical Support Specialist 40 mg intra-articular 1 mL [id number] 07/08/25 [address]-2 [employer] Kenalog 40 mg/mL suspension for injection Performing Provider: Sangita Adhikari MD Performing Location: [facility] [place] [facility] Administered by: Sangita Adhikari MD on 01/09/24 09:40 Dose Route Admin Location Dispensed Lot Number Expiration Date NDC It Technical Support Specialist 40 mg intra-articular 1 mL [id number] 03/14/25 [address]-6 [employer] Results Reviewed Results Reviewed: Laboratory Tests 11/02/23 03:30 WBC 10.1 RBC 5.21 Hgb 14.1 Hct 43.6 Plt Count 377 Sodium 138 Potassium 4.3 Chloride 108 Carbon Dioxide 20 L Anion Gap 14 BUN 19 H Creatinine 1.24 XR Hands Degenerative changes at the radiocarpal joints bilaterally Assessment & Plan Assessment & Plan (1) Gout: Code(s): M10.9 - Gout, unspecified Category: Medical Qualifiers: Gout site: multiple sites Gout etiology: idiopathic Chronicity: chronic Presence of tophus: with tophus Qualified Code(s): M1A.09X1 - Idiopathic chronic gout, multiple sites, with tophus (tophi) Plan: #Chronic tophaceous non crystal proven gout Patient with tophaceous gout. Given the tophi noted to the right elbow we will start him on urate lowering therapy with allopurinol and colchicine to prevent flares. Check uric acid today. (2) Osteoarthritis: Code(s): M19.90 - Unspecified osteoarthritis, unspecified site Category: Medical Qualifiers: Osteoarthritis location: multiple joints Osteoarthritis type: primary Qualified Code(s): M15.0 - Primary generalized (osteo)arthritis Plan: #OA Polyarticular OA involving the hands and knees. Knees status post intra- articular corticosteroid injection today. Recommend * Physical therapy for knees * OT therapy for hands * Topical diclofenac for hands and knees We will avoid oral NSAIDs in this patient with diabetes and likely kidney issues from his diabetes and hypertension. Plan I spent 45 minutes reviewing the record and labs, seeing the patient, discussing the treatment plan and documenting in the medical record ? For next visit: * Follow up uric acid levels Orders: Orders Complete Blood Count Auto Diff Today M10.9 - Gout, unspecified, M19.90 - Unspecified osteoarthritis, unspecified site C Reactive Protein Today M10.9 - Gout, unspecified, M19.90 - Unspecified osteoarthritis, unspecified site Erythrocyte Sedimentation Rate Today M10.9 - Gout, unspecified, M19.90 - Unspecified osteoarthritis, unspecified site Cyclic Citrullinated Peptide Today M10.9 - Gout, unspecified, M19.90 - Unspecified osteoarthritis, unspecified site AMB Joint Injection/Aspiration Today M19.90 - Unspecified osteoarthritis, unspecified site AMB Joint Injection/Aspiration Today M19.90 - Unspecified osteoarthritis, unspecified site Comprehensive Met. Panel Today M10.9 - Gout, unspecified, M19.90 - Unspecified osteoarthritis, unspecified site Rheumatoid Factor Today M10.9 - Gout, unspecified, M19.90 - Unspecified osteoarthritis, unspecified site Uric Acid Today M10.9 - Gout, unspecified, M19.90 - Unspecified osteoarthritis, unspecified site Medications: New allopurinol 100 mg PO DAILY 90 tabs 1RF M10.9 - Gout, unspecified colchicine 0.6 mg PO DAILY 90 tabs 1RF M10.9 - Gout, unspecified diclofenac sodium 3% 1 appl topical BID 100 grams 4RF M19.90 - Unspecified osteoarthritis, unspecified site Coding Level of Care Code New Pt Level 4 (54126) Complex EM visit Add On G2211 Diagnoses Idiopathic chronic gout of multiple sites with tophus M1A.09X1 Gout site: multiple sites Gout etiology: idiopathic Chronicity: chronic Presence of tophus: with tophus Primary osteoarthritis involving multiple joints M15.0 Osteoarthritis location: multiple joints Osteoarthritis type: primary CPT Codes Coding - 99639 Large joint: 19743 - Large joint ([id number]) Coding - 69153 Large joint: 12625 - Large joint ([id number])
[2024-01-09 08:48] VITALS: BP 154/82; PULSE 87; O2SAT 97; BMI 36.6
== END 2024-01-09 09:33 | disposition home or self-care (01) ==
LOC: HO.RHE 08:38
PROVIDERS: PCP Internal Medicine; Visit Provider Student in an Organized Health Care Education/Training Program
DX: M15.0 Primary generalized (osteo)arthritis (principal); M1A.09X1 Idiopathic chronic gout, multiple sites, with tophus (tophi); M19.90 Unspecified osteoarthritis, unspecified site
CPT/HCPCS: 20610; 99204

== ENCOUNTER → 2024-01-09 08:37 | Outpatient (BNVA) | payer MEDICAID, SELFPAY | PROVIDERS: PCP Internal Medicine; Visit Provider Student in an Organized Health Care Education/Training Program | DX: M1A.09X1 Idiopathic chronic gout, multiple sites, with tophus (tophi) (principal); M15.0 Primary generalized (osteo)arthritis | CPT/HCPCS: 20610; 99202; J3300 ==

== ENCOUNTER 2024-01-20 09:52 | Outpatient (REF) | payer MEDICAID, SELFPAY ==
[2024-01-20 11:25] LABS: MANUAL DIFF FLAG NO
[2024-01-20 11:29] LABS: Basophils Absolute Auto 0.1 X10*3/uL (0.0-0.2); Basophils Percent Auto 1.2 % (0-2); Eosinophils Absolute Auto 0.3 X10*3/uL (0.0-0.4); Eosinophils Percent Auto 3.3 % (0-4); Hematocrit 47.5 % (42.0-52.0); Hemoglobin 15.3 g/dl (14.0-18.0); Imm Gran Abs Auto 0.03 X10*3/uL (0.00-0.03); Imm Gran Pct Auto 0.3 % (0.0-0.4); Lymphocytes Absolute Auto 2.7 X10*3/uL (1.2-4.9); Lymphocytes Percent Auto 30.6 % (20-40); Mean Corpuscular HGB Conc 32.2 g/dl (31.0-36.0); Mean Corpuscular Hemoglobin 27.1 pg (27.0-33.0); Mean Corpuscular Volume 84.1 fL (80.0-98.0); Mean Platelet Volume 10.4 fL (9.4-12.4); Monocytes Absolute Auto 0.7 X10*3/uL (0.1-1.2); Monocytes Percent Auto 7.7 % (2-11); Neutrophils Percent Auto 56.9 % (45-73); Platelet Count 401 X10*3/uL (160-400); Red Blood Count 5.65 X10*6/uL (4.60-5.80); Red Cell Distribution Width 14.6 % (11.0-16.0); White Blood Count 8.8 X10*3/uL (4.8-10.8)
[2024-01-20 11:37] LABS: Alanine Aminotransferase 38 U/L (0-40); Albumin Level 4.2 g/dL (3.5-5.0); Alkaline Phosphatase 98 U/L (39-117); Anion Gap 12 (12-20); Aspartate Amino Transferase 30 U/L (5-37); Bilirubin Total 0.3 mg/dL (0.0-1.0); Blood Urea Nitrogen 15 mg/dL (9-16); C Reactive Protein 0.64 mg/dL (< or = 0.50); Calcium 10.1 mg/dL (8.4-10.2); Carbon Dioxide 22 mmol/L (22-29); Chloride 107 mmol/L (96-108); Estimated Glomerular Filt Rate > 60; Glucose Random 138 mg/dL (60-115); Sodium 137 mmol/L (135-145); Total Protein 7.5 g/dL (6.5-8.0); Uric Acid 5.8 mg/dL (3.4-7.0)
[2024-01-20 12:10] LABS: Erythrocyte Sedimentation Rate 4 MM/HR (0-15)
[2024-01-22 20:30] LABS: Cyclic Citrullinated Peptide <16 UNITS
== END 2024-01-20 09:53 | disposition home or self-care (01) ==
LOC: HO.HHCL 09:52
PROVIDERS: Visit Provider Student in an Organized Health Care Education/Training Program
DX: M19.90 Unspecified osteoarthritis, unspecified site (principal); M10.9 Gout, unspecified
CPT/HCPCS: 36415; 80053; 84550; 85025; 85652; 86140; 86200; 86431

== ENCOUNTER 2024-04-07 09:47 | Outpatient (AMB) | payer MEDICAID, SELFPAY ==
[2024-04-07 09:49] VITALS: BP 140/72; PULSE 79; BMI 37.0
--- NOTE | 2024-04-07 09:49 | MHC.OFFVIS ---
Vital Signs 04/07/24 09:49 Height 5 ft 9 in Weight 250 lb 7.122 oz BMI 37.0 BP 140/72 H Blood Pressure Location Lt brachial Position Sitting Pulse 79 Pulse Source Pulse Oximeter Intake Visit Reasons: ovedue f/up Wiener Packer Required: Yes Wiener Packer Language: Patrol Deputy Sheriff Name: [email or web address] [phone] Accompanied by: Self / Same As Patient Allergies Iodinated Contrast Media [IV CONTRAST] Allergy (Intermediate, Verified 11/02/23 03:16) Difficulty Breathing Penicillins Allergy (Mild, Verified 11/02/23 03:16) RASH Sulfa (Sulfonamide Antibiotics) Allergy (Mild, Verified 11/02/23 03:16) RASH codeine Adverse Reaction (Mild, Verified 11/02/23 03:16) STOMACH UPSET Docusate Calcium Allergy (Mild, Uncoded 09/20/23 22:02) rash Medication List - Last Reconciled 04/07/24 by Rajiv Jean MD acetaminophen ER 650 mg PO Q8H PRN allopurinol 100 mg PO DAILY amlodipine 10 mg PO DAILY@1200 apixaban (Eliquis) 5 mg PO BID 90 days aspirin 81 mg PO DAILY atorvastatin 80 mg PO BEDTIME cholecalciferol (vitamin D3) 50 mcg PO DAILY colchicine 0.6 mg PO DAILY diclofenac sodium 3% 2 grams topical BID diclofenac sodium 3% 1 appl topical BID dulaglutide (Trulicity) 1.5 mg subcut FR@0900 empagliflozin (Jardiance) 10 mg PO DAILY esomeprazole magnesium (Nexium) 40 mg PO DAILY@0630 fenofibrate 160 mg PO BEDTIME fluticasone propionate 50 mcg/actuation 2 sprays intranasal DAILY PRN gabapentin 600 mg PO BID glipizide ER 1 tab PO BID isosorbide mononitrate ER 30 mg PO QPM lidocaine 5% 1 patch topical DAILY PRN linaclotide (Linzess) 145 mcg PO DAILY loperamide 2 mg PO Q4H PRN loratadine 10 mg PO DAILY losartan 100 mg PO DAILY metformin 500 mg PO BID metoprolol tartrate 1.5 tabs PO BID mometasone 100 mcg/actuation (Asmanex HFA) 1 inh inhalation DAILY niacin ER 500 mg PO BEDTIME oxycodone 5 mg PO BID PRN tamsulosin 0.4 mg PO DAILY HPI Comments Details: 59-year-old gentleman here for follow-up. He has background history of coronary artery disease with PCI of left anterior descending artery and diagonal artery with multiple procedures for InStent restenoses. He presented to [facility] with chest pain and concern for unstable angina. He underwent cardiac catheterization which showed severe ISR in the LAD and diagonal artery. At this stage he was referred for coronary artery bypass surgery. Post surgery he did well. He has no further CP or SOB. He has been taking meds. No bleeding issues. He had atrial flutter and has been on Eliquis. On follow-up he continues to do well. He has no chest pain or shortness of breath. Taking medications regularly. 12/30/22: He returns for follow-up. He has been doing well. No chest discomfort or shortness of breath. No bleeding issues. 07/07/23: He returns for follow-up. He needs perioperative cardiovascular risk assessment for colonoscopy. He is going for colonoscopy in August or September. He is taking medications regularly. Blood pressure is elevated and he is saying that he has pain in his knees and arms which is present all the time. He is asking whether he can get some stronger medications and Tylenol. I have asked him to discuss this with his primary care physician. His blood pressure is elevated and ideally we should be adding medications but he seems somewhat reluctant and after discussion we have decided to keep a log and he will bring it next time. 04/07/24: He is here for follow-up. He is denying any chest pain or shortness of breath. Blood pressure is elevated. He is saying he has been checking it at home and at times it is high when he is in pain due to knee issues. [facility] Medical History (Updated 04/07/24 @ 10:11 by Rajiv Jean MD) Hypertension Osteoarthritis TIA (transient ischemic attack) Chest pain Gastroparesis Anal fistula Low back pain Perianal abscess History of panic attacks Hx of myocardial infarction Arthritis GERD (gastroesophageal reflux disease) Scoliosis Asthma Tubular adenoma Migraines Gout Seizures Depression Diabetes Adhesive capsulitis of left shoulder Atrial flutter CAD (coronary artery disease) Cellulitis Surgical History History of incision and drainage (~10/19/21) History of umbilical hernia repair History of esophagogastroduodenoscopy (EGD) H/O colonoscopy History of open heart surgery History of sinus surgery History of appendectomy History of angioplasty Family History Father No problems noted. Mother History of stomach cancer History of liver cancer Brother No problems noted. 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 residential child care counselor to a significant other at home: Yes (children) Do you presently have visiting nurse or other home services: No Alcohol intake: current Alcohol intake frequency: holidays/special occasions only Alcohol type: beer Patient Tobacco Use Status: Never used Tobacco Advance Directives Date on File: 05/15/22 service: No Current occupational status: disabled Review of Systems Const Denies chills, Denies fatigue, Denies fever(s), Denies frequent falls, Denies weakness, Denies weight gain and Denies weight loss ENT Denies dizziness Card Denies chest pain, Denies leg edema, Denies lightheadedness, Denies palpitations, Denies dyspnea and Denies dyspnea on exertion Resp Denies cough, Denies dyspnea and Denies dyspnea on exertion GI Denies hematochezia Musc Denies abnormal gait, Denies muscle weakness, Denies numbness, Denies radiating pain into limb and Denies tingling Neuro Denies abnormal gait, Denies dizziness, Denies frequent falls, Denies numbness, Denies tingling and Denies weakness Endo Denies fatigue and Denies palpitations Physical Exam Vital Signs: Last Vital Signs Pulse 79 04/07/24 09:49 BP 140/72 H 04/07/24 09:49 BMI result Body Mass Index 37.0 GENERAL APPEARANCE: in no acute distress, pleasant. NECK: no carotid bruit, no jugular venous distention. SKIN: no suspicious lesions, warm and dry. HEART: no murmurs, regular rate and rhythm. LUNGS: clear to auscultation bilaterally. ABDOMEN: soft, nontender. EXTREMITIES: no edema. PERIPHERAL PULSES: equal. Left radial artery was harvested for bypass. NEUROLOGIC: No gross deficits, AAO X 3 Assessment & Plan Assessment & Plan (1) Hypertension: Code(s): I10 - Essential (primary) hypertension Category: Medical (2) CAD (coronary artery disease): Comment: Sees Dr Jean Code(s): I25.10 - Atherosclerotic heart disease of [place] coronary artery without angina pectoris Category: Medical (3) Atrial flutter: Code(s): I48.92 - Unspecified atrial flutter Category: Medical Plan Pleasant 59 year gentleman who is here for follow-up. He underwent single-vessel bypass surgery for recurrent ISR in the LAD. He has done well since then. He had 1 episode of atrial flutter but has been in sinus rhythm since then. He is on anticoagulation with Eliquis and is on baby aspirin. On follow-up his blood pressure is elevated. He is on multiple medicines. I think he needs a diuretic and I am starting him on chlorthalidone 25 mg daily. He will see us back in couple of months. He will continue to monitor his blood pressure at home. Thank you for allowing me to participate in the care of your patient. Please feel free to contact me if you have any questions. Medications: New chlorthalidone 25 mg PO DAILY 90 tabs 3RF I10 - Essential (primary) hypertension Coding Level of Care Code Est Pt Level 4 (22445) Diagnoses Hypertension I10 CAD (coronary artery disease) I25.10 Atrial flutter I48.92
--- OUTSIDE RECORDS SUMMARY | 2024-04-07 11:30 | XMS_ITS | Encounter Summary ---
Author Organization [employer] Address [address] [address] [place] [address] Care Team Providers Care Market Garden Worker Name Role Phone Hanna Wheat MD Primary Care Provide r Encounter Details Date Type Department Care Team (Latest Contact Info) Description 03/19/2024 Travel Social History Tobacco Use Types Packs/Day Years Used Date Smoking Tobacco: Never Passive Smoke Exposure: Never Smokeless Tobacco: Never Alcohol Use Standard Drinks/Week Comments Not Currently 0 (1 standard drink = 0.6 oz pur e alcohol) Depression Answer Date Recorded Patient Health Questionnaire-9 Score 0 05/16/2023 Patient Health Questionnaire-9 Score 0 05/16/2023 Last PHQ-9: Questionnaire Data Not on file 0 05/16/2023 Housing Stability Answer Date Recorded What is your housing situation today? I have amijunior lai 12/25/[address] you li ve. Do you have problems with any of the following? None of the above 12/25/2022 Food Insecurity Answer Date Recorded Within the past 12 months, y ou worried that your food would run out before you got money to buy more: Never True 12/25/2022 Within the past 12 months,th e food you bought just didn't last and you didn't have enough money to get more: Never True Transportation Answer Date Recorded In the past 12 months, has l ack of transportation kept you from medical appts, meetings, work or from getting things needed for daily living? No 12/25/2022 Utilities Answer Date Recorded In the past 12 months, has t he electric, gas, oil or water company threatened to shut off services in your home? No 12/25/2022 Depression Answer Date Recorded Patient Health Questionnaire-2 Score 0 05/16/2023 Internet Access Answer Date Recorded Internet Access Q1 Yes 11/07/2023 Internet Access Q2 Not on file 11/07/2023 Sex and Gender Information Value Date Recorded Sex Assigned at Male 01/07/2022 10:16 AM EDT Legal Sex Male 10:16 AM EDT Gender Identity Male 01/07/2022 10:16 AM EDT Sexual Orientation Choose not to disclose 2021 10:16 AM EDT Travel History Travel Start Travel End [place] 02/23/2024 03/11/2024 documented as of this encounter Plan of Treatment Not on file documented as of this encounter Visit Diagnoses Not on filedocumented in this encounter Additional Health Concerns Assessment Noted Time PHQ-9 Depression Total Score: 0 05/16/19 24 9:06 AM EST documented as of this encounter Care Teams Market Garden Worker Relationship Specialty Start Date End Date Hanna Wheat MD [address] [place] [id number] PCP - General Family Medicine 10/30/18 Concetta Garcia Clock AssemblerMachine Shop Inspector 11/28/22 documented as of this encounter
--- OUTSIDE RECORDS SUMMARY | 2024-04-07 11:31 | XMS_ITS | Encounter Summary ---
Author Organization [employer] Address [address] [place] [address] [address] [place] [address] Care Team Providers Care Knowledge Engineer Name Role Phone Hanna Wheat MD Primary Care Provide r Reason for Visit * Reason Comments Med Refill Encounter Details Date Type Department Care Team ([facility] st Contact Info) Description 11/07/2022 Refill [facility] CH[facility] MED & PEDS [address] [place], [place] [phone] Shukri Carney MD [address] [place] [address] Seasonal allergies; Low back pain, unspecified back pain laterality, unspecified chronicity, unspecified whether sciatica present Social History Tobacco Use Types Packs/Day Years Used Date Smoking Tobacco: Never Smokeless Tobacco: Never Alcohol Use Standard Drinks/Week Comments Yes 0 (1 standard drink = 0.6 oz pur e alcohol) Depression Answer Date Recorded Patient Health Questionnaire-2 Score 0 05/02/2022 Sex and Gender Information Value Date Recorded Sex Assigned at Male 01/07/2022 10:16 AM EDT Legal Sex Male 10:16 AM EDT Gender Identity Male 01/07/2022 10:16 AM EDT Sexual Orientation Choose not to disclose 2021 10:16 AM EDT Travel History Travel Start Travel End [place] 02/23/2024 03/11/2024 documented as of this encounter Plan of Treatment Not on file documented as of this encounter Visit Diagnoses Diagnosis Seasonal allergies Allergic rhinitis, cause unspecified Low back pain, unspecified back pain laterality, unspecified chronicity, unspecified whether sciatica present documented in this encounter Care Teams Knowledge Engineer Relationship Specialty Start Date End Date Hanna Wheat MD [address] [place] [address] PCP - General Family Medicine 10/30/18 Concetta Garcia Set Up TechnicianGrey Goods Marker 11/28/22 documented as of this encounter
--- OUTSIDE RECORDS SUMMARY | 2024-04-07 11:31 | XMS_ITS | Encounter Summary ---
Author Organization [employer] Address [address] [facility] [address] [place] [address] Care Team Providers Care Medical Biller/Coder Name Role Phone Hanna Wheat MD Primary Care Provide r Reason for Visit * Reason Comments Med Refill Encounter Details Date Type Department Care Team ([facility] st Contact Info) Description 08/24/2022 Refill [facility] MEDICINE [address] [place], [place] [phone] Kendra Joya MD [address] [place] [address] Atherosclerosis of coronary artery of [place] heart with stable angina pectoris, unspecified vessel or lesion type (CMS/HCC) Social History Tobacco Use Types Packs/Day Years [...] EDT Travel History Travel Start Travel End [place] 02/23/2024 03/11/2024 COVID-19 Exposure Response Date Recorded In the last 10 days, have yo u been in contact with someone who was confirmed or suspected to have Coronavirus/COVID-19? No / Unsure 08/12/2022 3:09 PM EDT documented as of this encounter Plan of Treatment Not on file documented as of this encounter Visit Diagnoses Diagnosis Atherosclerosis of coronary artery of [place] heart with stable angina pectoris, unspecified vessel or lesion type (CMS/[facility]) documented in this encounter Care Teams Medical Biller/Coder Relationship Specialty Start Date End Date Hanna Wheat MD [address] [place] [address] PCP - General Family Medicine 10/30/18 Concetta Garcia DianeticistPlug Assembler 11/28/22 documented as of this encounter
--- OUTSIDE RECORDS SUMMARY | 2024-04-07 11:31 | XMS_ITS | Encounter Summary ---
Author Organization [employer] Address [address] [place] [address] [address], [place] [address] Care Team Providers Care Signaling Project Engineer Name Role Phone Hanna Wheat MD Primary Care Provide r Reason for Visit * Reason Comments Med Refill Encounter Details Date Type Department Care Team ([facility] st Contact Info) Description 11/06/2022 Refill [facility] MEDICINE [address] [place], [place] [phone] Shukri Carney MD [address] [place], [place] [phone] Social History Tobacco Use Types Packs/Day Years [...] EDT Travel History Travel Start Travel End [place] 02/23/2024 03/11/2024 documented as of this encounter Plan of Treatment Not on file documented as of this encounter Visit Diagnoses Not on filedocumented in this encounter Care Teams Signaling Project Engineer Relationship Specialty Start Date End Date Hanna Wheat MD [address] [place], [place] [phone] PCP - General Family Medicine 10/30/18 Concetta Garcia Supervisor LithargeMason Tender 11/28/22 documented as of this encounter
--- OUTSIDE RECORDS SUMMARY | 2024-04-07 11:31 | XMS_ITS | Encounter Summary ---
Author Organization [employer] Address [address] [facility] [address] [place] [address] Care Team Providers Care Supervisor Lens Generating Name Role Phone Hanna Wheat MD Primary Care Provide r Reason for Visit * Reason Comments Med Refill Encounter Details Date Type Department Care Team ([facility] st Contact Info) Description 12/09/2023 Refill [facility] MEDICINE [address] [place], [place] [phone] Hanna Wheat MD [address] [place], [place] [phone] Primary osteoarthritis of both knees Social History Tobacco Use Types Packs/Day Years [...] is your housing situation today? I have ami lai 12/25/[address] you [...] EDT Travel History Travel Start Travel End [place] 02/23/2024 03/11/2024 documented as of this encounter Plan of Treatment Not on file documented as of this encounter Visit Diagnoses Diagnosis Primary osteoarthritis of both knees documented in this encounter Additional Health Concerns Assessment Noted Time PHQ-9 Depression Total Score: 0 05/16/19 24 9:06 AM EST documented as of this encounter Care Teams Supervisor Lens Generating Relationship Specialty Start Date End Date Hanna Wheat MD [address] [place] [address] PCP - General Family Medicine 10/30/18 Concetta Garcia Limnology TeacherBark Skinner 11/28/22 documented as of this encounter
--- OUTSIDE RECORDS SUMMARY | 2024-04-07 11:31 | XMS_ITS | Encounter Summary ---
Author Organization [employer] Address [address] [place] [address] [address] [place] [address] Care Team Providers Care Mottle Lay Up Operator Name Role Phone Hanna hWeat MD Primary Care Provide r Reason for Visit * Reason Comments Med Refill Encounter Details Date Type Department Care Team ([facility] st Contact Info) Description 08/24/2022 Refill [facility] MEDICINE [address] [place], [place] [phone] Ellie Wheeler MD [address] [place], [place] [phone] Type 2 diabetes mellitus without complication, unspecified whether detention insulin use (CMS/[facility]); Dyslipidemia Social History Tobacco Use Types Packs/Day Years [...] EDT Travel History Travel Start Travel End [place] 02/23/2024 03/11/2024 COVID-19 Exposure Response Date Recorded In the last 10 days, have yo u been in contact with someone who was confirmed or suspected to have Coronavirus/COVID-19? No / Unsure 08/12/2022 3:09 PM EDT documented as of this encounter Plan of Treatment Not on file documented as of this encounter Visit Diagnoses Diagnosis Type 2 diabetes mellitus without complication, unspecified whether detention insulin use (CMS/[facility]) Dyslipidemia Other and unspecified hyperlipidemia documented in this encounter Care Teams Mottle Lay Up Operator Relationship Specialty Start Date End Date Hanna Wheat MD [address] [place] [address] PCP - General Family Medicine 10/30/18 Concetta Garcia Finance Business ManagerProcessor Inspector 11/28/22 documented as of this encounter
--- OUTSIDE RECORDS SUMMARY | 2024-04-07 11:31 | XMS_ITS | Encounter Summary ---
Author Organization [facility] Address [address] [place] [address] [address] [place] [address] Care Team Providers Care Negative Restorer Name Role Phone Hanna Wheat MD Primary Care Provide r Encounter Details Date Type Department Care Team (Latest Contact Info) Description 07/26/2021 [facility] CONVERSIONS Dental, Provider, DDS Social History Tobacco Use Types Packs/Day Years Used Date Smoking Tobacco: Never Assessed Sex and Gender Information Value Date Recorded [...] on filedocumented in this encounter Care Teams Negative Restorer Relationship Specialty Start Date End Date Hanna Wheat MD [address] [place] [address] PCP - General Family Medicine 10/30/18 Concetta Garcia Help Desk OperatorMedical Operations Supervisor 11/28/22 documented as of this encounter
--- OUTSIDE RECORDS SUMMARY | 2024-04-07 11:31 | XMS_ITS | Encounter Summary ---
Author Organization [employer] Address [address] [facility] 7[address] [place] [address] Care Team Providers Care Center Medical And Lab Director Name Role Phone Hanna Wheat MD Primary Care Provide r Reason for Visit * Reason Comments Diabetic Eye Exam Encounter Details Date Type Department Care Team ([facility] st Contact Info) Description 03/19/2024 9:30 AM EST Office Visit [facility] OPTOMETRY [address] [place] [address] Abdiel, Aye, OD [address] [place] [address] Diabetes type 2, no ocular involvement (CMS/HCC) (Primary Dx); Dry eyes; White without pressure of peripheral retina of both eyes; Early cataracts, bilateral; Presbyopia of both eyes Social History Tobacco Use Types Packs/Day Years [...] your housing situation today? I have ami joelle 12/25/[address] you li [...] EDT Travel History Travel Start Travel End [place] 02/23/2024 03/11/2024 documented as of this encounter Progress Notes * Aye Meadows, OD - 03/19/2024 9:30 AM EST Eye Care Progress Note Patient ID: Brannon Leavitt is a 59 y.o. male. Chief Complaint Diabetic Eye Exam HPI Here for a diabetic eye exam. He has Type II NIDDM. His last HbA1c was 6.4% on 09/12/2023. Today the patient complains of intermittent tearing of both eyes worse in the evenings with associated irritation and redness. He has been using SootheXP lubricant eye drops about twice a day with some relief. He also uses warm compresses. He denies vision complaints. Last eye exam was here on 07/04/2022. Last edited by Aye Meadows, OD on 04/06/2024 12:11 PM. Current Outpatient Medications Medication Sig Dispense Refill esomeprazole (NexIUM) [address] capsule TAKE 1 CAPSULE BY MOUTH EVERY MORNING AT 630 isosorbide mononitrate ER (Imdur) 30 MG 24 hr tablet Take 30 mg by mouth at bedtime. Linzess 145 MCG capsule Take 1 capsule by mouth Once per day. acetaminophen (Tylenol 8 Hour) 650 MG ER tablet TAKE 2 TABLETS BY MOUTH EVERY 8 HOURS NEEDED FORMILD PAIN, DO NOT BREAK, CRUSH, DISSOLVE OR CHEW 40 tablet 1 allopurinol (Zyloprim) 100 MG tablet Take 100 mg by mouth in the morning. amLODIPine (Norvasc) 10 MG tablet TAKE 1 TABLET BY MOUTH EVERYDAY AT NOON 90 tablet 1 aspirin (Aspirin Low Dose) 81 MG EC tablet TAKE 1 TABLET BY MOUTH EVERY MORNING 90 tablet 1 atorvastatin (Lipitor) 80 MG tablet TAKE 1 TABLET BY MOUTH AT BEDTIME 90 tablet 1 azithromycin (Zithromax) 250 MG tablet Take 2 tablets PO on day one then take 1 tablet PO daily forthe next 4 days 6 tablet 0 Blood Glucose Monitoring Suppl (Agilum Healthcare IntelligenceStyle Lite) device Inject 1 each under the skin 2 times daily. Test 1 time by intradermal route 2 times everyday. 1 each 0 cetirizine (ZyrTEC) 10 MG tablet Take 1 tablet (10 mg) by mouth Once per day. 90 tablet 3 cholecalciferol (D3 Super Strength) 50 MCG (2000 UT) capsule TAKE 1 CAPSULE BY MOUTH EVERY MORNING 90 capsule 1 colchicine 0.6 MG tablet take one daily 30 tablet 0 diclofenac sodium 3 % gel APPLY 2 GRAMS TOPICALLY TWICE DAILY 100 g 1 docusate sodium (Colace) 100 MG capsule TAKE 1 CAPSULE BY MOUTH AT BEDTIME doxycycline (Monodox) 100 MG capsule TAKE 1 CAPSULE BY MOUTH TWICE DAILY Eliquis 5 MG tablet TAKE 1 TABLET BY MOUTH TWICE DAILY IN THE MORNING AND IN THE EVENING empagliflozin (Jardiance) 10 MG TAKE 1 TABLET BY MOUTH EVERY MORNING 30 tablet 5 famotidine (Pepcid) 20 MG tablet TAKE 1 TABLET BY MOUTH TWICE DAILY IN THE MORNING AND IN THE EVENING fenofibrate (Triglide) 160 MG tablet TAKE 1 TABLET BY MOUTH EVERY EVENING (for cholesterol) 90 tablet 1 fluticasone furoate (Arnuity Ellipta) 100 MCG/ACT inhaler INHALE 1 PUFF BY MOUTH EVERY DAY AT THE SAME TIME RINSE MOUTH AFTER USING. 30 each 3 FREESTYLE LITE test strip USE DIRECTED TO TEST BLOOD SUGAR TWICE DAILY 50 strip 11 glipiZIDE XL (Glucotrol XL) 10 MG 24 hr tablet TAKE 1 TABLET BY MOUTH TWICE DAILY IN THE MORNING AND IN THE EVENING WITH MEALS 180 tablet 1 guaiFENesin (Mucinex) 600 MG 12 hr tablet Take 2 tablets (1,200 mg) by mouth if needed in the morning and at bedtime for cough or congestion. Do not crush, chew, or split. 30 tablet 0 Lidoderm 5 % patch APPLY 1-2 PATCHES TOPICALLY TO AFFECTED AREA(S) EVERY DAY NEEDED FOR PAIN. REMOVE AFTER 12 hours. losartan (Cozaar) 100 MG tablet TAKE 1 TABLET BY MOUTH EVERY MORNING 90 tablet 1 metFORMIN (Glucophage) 500 MG tablet TAKE 1 TABLET BY MOUTH TWICE DAILY IN THE MORNING AND IN THE EVENING 180 tablet 1 methocarbamol (Robaxin) 750 MG tablet Take 1 tablet (750 mg) by mouth 4 times daily for 10 days. 40tablet 0 metoprolol tartrate (Lopressor) 50 MG tablet TAKE 1 AND 1/2 TABLETS BY MOUTH TWICE DAILY IN THE MORNING AND IN THE EVENING 270 tablet 1 niacin (Niaspan) 500 MG ER tablet TAKE 1 TABLET BY MOUTH AT BEDTIME 90 tablet 1 nitroglycerin (Nitrostat) 0.[address] 1 TABLET UNDER THE TONGUE NEEDED FOR CHEST PAIN- MAY REPEAT IN 5 MINUTES TWICE. IF NO RELIEF CALL 911 OR GO TO EMERGENCY ROOM. tamsulosin (Flomax) 0.4 MG 24 hr capsule TAKE 1 CAPSULE BY MOUTH EVERY MORNING 90 capsule 1 TRUEplus Lancets 33G misc TEST BLOOD SUGAR TWICE DAILY Trulicity 3 MG/0.5ML solution pen-injector INJECT ONE PEN (= 3MG) SUBCUTANEOUSLY ONCE A WEEK DIRECTED 2 mL 3 Wheat Dextrin (benefiber drink mix) packet MIX 1 PACKET IN 4 OUNCES IN WATER OR JUICE AND DRINK DAILY DIRECTED No current facility-administered medications for this visit. Past Medical History: Diagnosis Date CAD (coronary artery disease) Gout Hypertension Migraines Polyarthralgia Type 2 diabetes mellitus ([facility]/HCC) Past Surgical History: Procedure Laterality Date ANGIOPLASTY 2001 APPENDECTOMY SINUS SURGERY No family history on file. Social History Socioeconomic History Marital status: Spouse name: Not on file Number of children: Not on file Years of education: Not on file Highest education level: Not on file Occupational History Not on file Tobacco Use Smoking status: Never Passive exposure: Never Smokeless tobacco: Never Vaping Use Vaping status: Never Used Substance and Sexual Activity Alcohol use: Not Currently Drug use: Never Sexual activity: Not on file Other Topics Concern Not on file Social History Narrative Not on file Social Drivers of Health Food Insecurity: Low Risk (12/25/2022) Food Insecurity Within the past 12 months, you worried that your food would run out before you got money to buy more:: Never True Within the past 12 months,the food you bought just didn't last and you didn't have enough money to get more: : Never True Transportation Needs: Low Risk (12/25/2022) Transportation In the past 12 months, has lack of transportation kept you from medical appts, meetings, work or from getting things needed for daily living? : No Intimate Partner Violence: Not on file Housing Stability: Low Risk (12/25/2022) Housing Stability What is your housing situation today?: I have housing Think about the place you live. Do you have problems with any of the following? : None of the above Allergies Allergen Reactions Calcium Codeine Other reaction(s): Rash/Dermatitis Iodinated Contrast Media Other reaction(s): facial swelling post cath Ondansetron Penicillins Other reaction(s): Rash, rash , Rash/Dermatitis, Swelling of oral cavity structure, Swelling of throat Sulfa Antibiotics Sulfasalazine Docusate Rash ROS Positive for: Eyes Negative for: Constitutional, Gastrointestinal, Neurological, Skin, Genitourinary, Musculoskeletal,HENT, Endocrine, Cardiovascular, Respiratory, Psychiatric, Allergic/Imm, Heme/Lymph Last edited by Romina Garcia on 03/19/2024 9:29 AM. Base Eye Exam Visual Acuity (Snellen - Linear) Right Left Dist sc 20/25 20/25 Near cc 20/25- 20/25- Correction: Glasses Tonometry ([facility] , 9:47 AM) Right Left Pressure 15 13 Pupils Pupils APD Right PERRL None Left PERRL None Visual Cummins (Counting fingers) Left Right Full Full Extraocular Movement Right Left Full Full Neuro/Psych Oriented x3: Yes Mood/Affect: Normal Dilation Both eyes: 1% Tropicamide @ 9:51 AM Slit Lamp and Fundus Exam External Exam Right Left External Normal Normal Slit Lamp Exam Right Left Lids/Lashes 1+ MGD 1+ MGD Conjunctiva/Sclera White and quiet White and quiet Cornea TBUT 7s, no staining TBUT 9s, no staining Anterior Chamber Deep and quiet Deep and quiet Iris Flat, no NVI Flat, no NVI Lens Trace NS Trace NS Fundus Exam Right Left Vitreous Clear Clear Disc Bemiss and Distinct, no NVD Bemiss and Distinct, no NVD C/D Ratio Vertical 0.40 0.30 C/D Ratio Horizontal 0.40 0.30 Macula Flat and Intact, no CSME Flat and Intact, no CSME Vessels Normal Normal Periphery WWOP from 8-9:00 in the periphery, No holes/breaks/tears 360 degrees, no NVE WWOP at 3:00in the periphery, No holes/breaks/tears 360 degrees, no NVE Refraction Wearing Rx Sphere Cylinder Jeffers Add Right +1.00 -0.75 080 +2.25 Left +0.25 Sphere +2.25 Manifest Refraction Sphere Cylinder Jeffers Dist VA Right +1.00 -0.25 080 +2.25 Left +0.75 Sphere +2.25 Final Rx Sphere Cylinder Jeffers Dist VA Right +1.00 -0.25 080 +2.25 Left +0.75 Sphere +2.25 Expiration Date: 03/19/2026 Assessment/plan: Diagnoses and all orders for this visit: Diabetes type 2, no ocular involvement ([facility]) There is no diabetic retinopathy or macular edema present today in either eye. The patient was educated on the exam findings. The patient was educated to continue controlling blood glucose levels through diet, exercise and medication. The patient was educated on potential complications of diabetic retinopathy, including blindness, if left untreated. The patient was educated on the importance of an annual diabetic eye exam to monitor for diabetic retinopathy. A summary of today's dilated eye exam results will be communicated to the patient's PCP through the shared patient problem list in [facility].Will monitor in 1 year. 2. Dry eyes Patient educated on dry eye syndrome. Dry eye syndrome is caused by a chronic lack of sufficient lubrication and moisture on the surface of the eye. Consequences of dry eyes range from subtle but constant eye irritation to significant inflammation and even scarring of the front surface of the eye. S ymptoms of dry eye syndrome include: a burning sensation, itching, an aching sensation, heavy feeling eyes, fatigued eyes, sore eyes, dryness sensation, redness, photophobia, and blurred vision. The patient was educated to increase the use of his Soothe drops to 4 times a day. Will monitor at his next exam. 3. 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 WWOP is a lightening in the color of the retina produced by traction on the surface of the retina. The surrounding retina was flat and no holes or tears were noted. The patient was educated that this condition can cause a higher risk of a retinal tear/hole/detachment. The patient was educated to return NOE if they experience a sudden onset of flashes, floaters, or decreased vision asthis can indicate a hole or tear may be occurring. Otherwise, will monitor at her next complete eyeexam. 4. Early cataracts, bilateral Not visually significant. No treatment necessary. Patient educated on progressive nature of cataracts. Will monitor at their next exam. 5. Presbyopia of both eyes Glasses prescription updated and given. Will monitor at the patient's next full eye exam. Aye Meadows, OD 04/06/2024, 12:15 PM Student Name: Romina Garcia I attest that I was physically present with the optometry student. I personally saw and evaluated the patient and performed my own history and examination. I have reviewed, verified, and revised the documented findings as necessary and agree with the content and plan as written. 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
--- OUTSIDE RECORDS SUMMARY | 2024-04-07 11:31 | XMS_ITS | Encounter Summary ---
Author Organization [employer] Address [address] [facility] [address] [place] [address] Care Team Providers Care [employer] Name Role Phone Hanna Wheat MD Primary Care Provide r Reason for Visit * Reason Comments Med Refill Encounter Details Date Type Department Care Team ([facility] Contact Info) Description 03/05/2024 Refill [facility] CHC MED & PEDS [address] [place], [place] [phone] Hanna Wheat MD [address] [place] [address] Social History Tobacco Use Types Packs/Day Years [...] documented as of this encounter Care Teams [employer] Relationship Specialty Start Date End Date Hanna Wheat MD [address] [place] [address] PCP - General Family Medicine 10/30/18 Concetta Garcia Experimental Electronics DeveloperVb Developer 11/28/22 documented as of this encounter
--- OUTSIDE RECORDS SUMMARY | 2024-04-07 11:31 | XMS_ITS | Clinical Summary ---
Author Organization [employer] [facility] Address [address] [place] [address] Care Team Providers Care Maid Supervisor Name Role Phone Hanna Wheat MD Primary Care Provide r Allergies Active Allergy Reactions Criticality Noted Date Comments Calcium 10/29/2016 Codeine 10/31/2014 Other reaction(s): Rash/Dermatitis Docusate Rash Low 08/27/2011 Iodinated Contrast Media 05/21/2022 Other reaction(s): facial swelling post cath Ondansetron 05/14/2016 Penicillins 04/21/2013 Other reaction(s): Rash, rash , Rash/Dermatitis, Swelling of oral cavity structure, Swelling of throat Sulfa Antibiotics 05/14/2016 Sulfasalazine 04/30/2022 Medications * This document contains information received from the source organization and may not represent a complete record from that organization. Eliquis 5 MG tablet TAKE 1 TABLET BY MOUTH TWICE DAILY IN THE MORNING AND IN THE EVENING 05/03/19 23 Active docusate sodium (Colace) 100 MG capsule TAKE 1 CAPSULE BY MOUTH AT BEDTIME 04/08/19 23 Active doxycycline (Monodox) 100 MG capsule TAKE 1 CAPSULE BY MOUTH TWICE DAILY 05/17/19 23 Active famotidine (Pepcid) 20 MG tablet TAKE 1 TABLET BY MOUTH TWICE DAILY IN THE MORNING AND IN THE EVENING 03/08/20 22 Active TRUEplus Lancets 33G [facility] TEST BLOOD SUGAR TWICE DAILY 04/08/19 23 Active Lidoderm 5 % patch APPLY 1-2 PATCHES TOPICALLY TO AFFECTED AREA(S) EVERY DAY NEEDED FOR PAIN. REMOVE AFTER 12 hours. 12/04/19 22 Active nitroglycerin (Nitrostat) 0.[address] 1 TABLET UNDER THE TONGUE NEEDED FOR CHEST PAIN - MAY REPEAT IN 5 MINUTES TWICE. IF NO RELIEF CALL 911 OR GO TO EMERGENCY ROOM. 02/06/20 22 Active Wheat Dextrin (benefiber drink mix) packet MIX 1 PACKET IN 4 OUNCES IN WATER OR JUICE AND DRINK DAILY DIRECTED 05/09/19 23 Active colchicine 0.6 MG tabletIndications :Low back pain, unspecified back pain laterality, unspecified chronicity, unspecified whether sciatica present take one daily 30 tablet 04/02/19 24 Active methocarbamol (Robaxin) 750 MG tabletIndications :Muscle spasm Take 1 tablet (750 mg) by mouth 4 times daily for 10 days. 40 tablet 05/16/19 24 Active Trulicity 3 MG/0.5ML solution pen-injector INJECT ONE PEN (= 3MG) SUBCUTANEOUSLY ONCE A WEEK DIRECTED 2 mL 3 06/24/19 24 Active FREESTYLE LITE test stripIndications: Type 2 diabetes mellitus with hyperglycemia, without long-term current use of insulin ([facility]) USE DIRECTED TO TEST BLOOD SUGAR TWICE DAILY 50 strip 11 08/18/19 24 Active Blood Glucose Monitoring Suppl (FreeStyle Lite) deviceIndications :Type 2 diabetes mellitus without complication, without long-term current use of insulin ([facility]) Inject 1 each under the skin 2 times daily. Test 1 time by intradermal route 2 times everyday. 1 each 09/12/19 24 Active azithromycin (Zithromax) 250 MG tablet Take 2 tablets PO on day one then take 1 tablet PO daily for the next 4 days 6 tablet 10/17/19 24 Active guaiFENesin (Mucinex) 600 MG 12 hr tablet Take 2 tablets (1,200 mg) by mouth if needed in the morning and at bedtime for cough or congestion. Do not crush, chew, or split. 30 tablet 10/17/19 24 025 Active cetirizine (ZyrTEC) 10 MG tablet Take 1 tablet (10 mg) by mouth Once per day. 90 tablet 3 10/17/19 24 025 Active cholecalciferol (D3 Super Strength) 50 MCG (2000 UT) capsuleIndication s:Low back pain, unspecified back pain laterality, unspecified chronicity, unspecified whether sciatica present TAKE 1 CAPSULE BY MOUTH EVERY MORNING 90 capsule 1 10/22/19 24 Active empagliflozin (Jardiance) 10 MGIndications:Typ e 2 diabetes mellitus with hyperglycemia, without long-term current use of insulin ([facility]) TAKE 1 TABLET BY MOUTH EVERY MORNING 30 tablet 5 10/24/19 24 Active diclofenac sodium 3 % gelIndications:Pr imary osteoarthritis of both knees APPLY 2 GRAMS TOPICALLY TWICE DAILY 100 g 1 10/31/19 24 Active acetaminophen (Tylenol 8 Hour) 650 MG ER tabletIndications :Primary osteoarthritis of both knees TAKE 2 TABLETS BY MOUTH EVERY 8 HOURS NEEDED FOR MILD PAIN, DO NOT BREAK, CRUSH, DISSOLVE OR CHEW 40 tablet 1 02/17/20 24 Active tamsulosin (Flomax) 0.4 MG 24 hr capsule TAKE 1 CAPSULE BY MOUTH EVERY MORNING 90 capsule 1 02/25/20 24 Active amLODIPine (Norvasc) 10 MG tabletIndications :Primary hypertension TAKE 1 TABLET BY MOUTH EVERYDAY AT NOON 90 tablet 1 02/25/20 24 Active metFORMIN (Glucophage) 500 MG tabletIndications :Type 2 diabetes mellitus without complication, unspecified whether parking worker insulin use ([facility]) TAKE 1 TABLET BY MOUTH TWICE DAILY IN THE MORNING AND IN THE EVENING 180 tablet 1 02/25/20 24 Active metoprolol tartrate (Lopressor) 50 MG tabletIndications :Atherosclerosis of coronary artery of zuni heart with stable angina pectoris, unspecified vessel or lesion type ([facility]) TAKE 1 AND 1/2 TABLETS BY MOUTH TWICE DAILY IN THE MORNING AND IN THE EVENING 270 tablet 1 02/25/20 24 Active glipiZIDE XL (Glucotrol XL) 10 MG 24 hr tabletIndications :Type 2 diabetes mellitus without complication, unspecified whether parking worker insulin use ([facility]) TAKE 1 TABLET BY MOUTH TWICE DAILY IN THE MORNING AND IN THE EVENING WITH MEALS 180 tablet 1 02/25/20 24 Active fenofibrate (Triglide) 160 MG tabletIndications :Dyslipidemia TAKE 1 TABLET BY MOUTH EVERY EVENING (for cholesterol) 90 tablet 1 02/25/20 24 Active niacin (Niaspan) 500 MG ER tabletIndications :Mixed hyperlipidemia TAKE 1 TABLET BY MOUTH AT BEDTIME 90 tablet 1 02/25/20 24 Active atorvastatin (Lipitor) 80 MG tabletIndications :Mixed hyperlipidemia TAKE 1 TABLET BY MOUTH AT BEDTIME 90 tablet 1 02/25/20 24 Active aspirin (Aspirin Low Dose) 81 MG EC tablet TAKE 1 TABLET BY MOUTH EVERY MORNING 90 tablet 1 02/25/20 24 Active losartan (Cozaar) 100 MG tabletIndications :Primary hypertension,Type 2 diabetes mellitus with hyperglycemia, without long-term current use of insulin ([facility]) TAKE 1 TABLET BY MOUTH EVERY MORNING 90 tablet 1 02/25/20 24 Active fluticasone furoate (Arnuity Ellipta) 100 MCG/ACT inhaler INHALE 1 PUFF BY MOUTH EVERY DAY AT THE SAME TIME RINSE MOUTH AFTER USING. 30 each 3 03/08/20 Active esomeprazole (NexIUM) [address] capsule TAKE 1 CAPSULE BY MOUTH EVERY MORNING AT 630 03/05/20 Active allopurinol (Zyloprim) 100 MG tablet Take 100 mg by mouth in the morning. Active Linzess 145 MCG capsule Take 1 capsule by mouth Once per day. 03/06/20 Active isosorbide mononitrate ER (Imdur) 30 MG 24 hr tablet Take 30 mg by mouth at bedtime. 01/01/20 Active omeprazole (PriLOSEC) [address] capsule TAKE 1 CAPSULE BY MOUTH EVERY MORNING (BEFORE BREAKFAST) 05/10/19 23 025 Disconti nued(The rapy complete d) Creon [id number] units capsule TAKE 1 CAPSULE BY MOUTH FOUR TIMES DAILY WITH MEALS OR SNACKS 05/09/19 23 025 Disconti nued(The rapy complete d) Alcohol Swabs pads Use twice daily to check blood glucose 025 Disconti nued(The rapy complete d) fluticasone (Flonase) 50 MCG/ACT nasal sprayIndications: Type 2 diabetes mellitus without complication, unspecified whether group home insulin use ([facility]) USE 2 SPRAYS IN EACH NOSTRIL ONCE DAILY 48 g 06/26/19 23 025 Disconti nued(The rapy complete d) gabapentin (Neurontin) 300 MG capsule Take 1 capsule (300 mg) by mouth at bedtime. 30 capsule 2 08/30/19 23 025 Disconti nued(The rapy complete d) Blood Glucose Monitoring Suppl (Idea.meStyle Mary Esther Lite) w/Device kitIndications:Ty pe 2 diabetes mellitus with hyperglycemia, without long-term current use of insulin ([facility]) Use to test blood sugar 2 times daily 1 kit 01/08/20 23 025 Disconti nued(The rodyy complete d) Trulicity 1.5 MG/0.5ML solution auto-injectorIndi cations:Type 2 diabetes mellitus with hyperglycemia, without long-term current use of insulin ([facility]) INJECT ONE PEN (=1.5MG) SUBCUTANEOUSLY ONCE A WEEK DIRECTED 2 mL 1 01/22/20 24 025 Disconti nued(The rapy complete d) Active Problems Problem Noted Date Diagnosed Date OA (osteoarthritis) 10/24/2023 Lumbar disc disease 10/24/2023 Muscle spasm 05/16/2023 Onychomycosis 03/07/2023 Primary osteoarthritis of both knees 03/07/2023 Assessment & Plan (09/12/2023 1:13 PM EDT): Acetaminophen 650mg, 2 tablets Q8hrs PRN Dicofenac gel apply locally BID PRN Follow up with orthopedics Assessment & Plan (03/07/2023 9:43 AM EST): Continue to follow with orthopedics Bilateral carpal tunnel syndrome 01/07/2023 Assessment & Plan (03/07/2023 9:40 AM EST): Nerve conduction study reviewed he has moderate CTS, patient has being using his wrist braces and reports much improvement Ia advise to continue with this and let me know if situation gets worse Assessment & Plan (01/07/2023 9:55 AM EDT): I will prescribe bilateral wrist braces to wear at bed time Migraine without aura and wi thout status migrainosus, not intractable 09/13/2022 Assessment & Plan (09/13/2022 11:02 AM EDT): I advise to avoid migraine triggers like red wine, chocolate, cheese, strong perfumes C/w topiromate 25mg at bed time GI (acute kidney injury) 09/13/2022 Encounter for preventative adult health care exa mination 09/13/2022 Assessment & Plan (09/13/2022 11:02 AM EDT): Please see HPI TIA (transient ischemic attack) 06/10/2022 Assessment & Plan (06/10/2022 10:04 AM EDT): No further symptoms since hospital visit I will optimize management for HTN and DM type 2 Today extensive counseling life style modifications Patient will continue aspirin, atorvastatin and elequis Acquired syphilis 06/10/2022 Assessment & Plan (06/10/2022 10:05 AM EDT): Finish doxycycline course and f/u with infection disease specialist Multiple joint pain 05/24/2022 Contusion of rib 05/21/2022 Epigastric pain 05/21/2022 Gouty arthritis of left hand 05/21/2022 Hemangioma of liver 05/21/2022 Chronic obstructive pulmonary disease 05/02/2022 Left lower quadrant pain 05/02/2022 Assessment & Plan (05/02/2022 12:11 PM EST): r/o diverticulitis, he has history of diverticulosis Order CT scan of the abdomen and pelvis with and without contrast, r/o pericolic abscess as well due to recent procedure. FU with Dr. Shah next week. Recommended soft and liquid diet and go to ED if he develops Fever, uncontrollable rectal bleeding, worsening pain. FU with me in 1 month. Rectal bleeding 05/02/2022 Assessment & Plan (05/02/2022 12:11 PM EST): Rectal drains from fistula working well, no active bleeding. r/o bleeding hemorrhoid vs diverticulitis. Primary osteoarthritis of left knee 10/10/2017 Alcohol abuse 10/09/2017 Diabetes mellitus type 2 with neurological manif estations 10/29/2016 Overview (05/02/2022): Basim CTS Diverticulosis 10/29/2016 Overview (05/02/2022): CT 03/10/2015 sigmoid, Renal cyst 10/29/2016 Overview (05/02/2022): On CT Hemorrhoids 05/24/2016 Atrial fibrillation 11/27/2015 Gastroesophageal reflux disease 10/27/2015 Overview (05/02/2022): Small sliding hiatal hernia Atherosclerosis of coronary artery 12/04/2011 Overview (05/21/2022): Cath Jan 2014, s/p multiple stent at [facility], Dr uLo, Several stress tests, echos Complicated migraine 12/04/2011 Overview (05/02/2022): 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, 2005, Dr Whiting, on Neurontin Type 2 diabetes mellitus wit h hyperglycemia, without long-term current use of insulin 12/04/2011 Overview (05/02/2022): Mild atherosclerotic disease of distal aorta and its branches CT 01/13/2014 Assessment & Plan (09/12/2023 1:13 PM EDT): Diabetes is: controlled - Lab Results Component Value Date HGBA1C 6.4 (A) 09/12/2023 HGBA1C 7.1 (A) 05/16/2023 HGBA1C 6.7 (A) 01/07/2023 - Lab Results Component Value Date MICROALBUR 3.7 02/05/2021 CREATININE 1.10 01/17/2023 -Changes: none - Diabetic eye exam:up to date - Diabetic foot exam:up to date - Continue lifestyle modifications - Continue current medications - Follow up: 3 months Assessment & Plan (05/16/2023 9:41 AM EST): Diabetes is: controlled - Lab Results Component Value Date HGBA1C 7.1 (A) 05/16/2023 HGBA1C 6.7 (A) 01/07/2023 HGBA1C 6.9 (A) 09/13/2022 - Lab Results Component Value Date MICROALBUR 3.7 02/05/2021 CREATININE 1.10 01/17/2023 -Changes: none - Diabetic eye exam:up to date - Diabetic foot exam:up to date - Continue lifestyle modifications - Continue current medications - Follow up: 3 months Assessment & Plan (01/07/2023 9:54 AM EDT): - Lab Results Component Value Date HGBA1C 6.9 (A) 09/13/2022 HGBA1C 8.4 (A) 06/10/2022 HGBA1C 7.2 (A) 05/02/2022 - Lab Results Component Value Date MICROALBUR 3.7 02/05/2021 CREATININE 0.99 09/04/2022 - Diabetic eye exam:up to date - Diabetic foot exam:up to date - Continue lifestyle modifications - Continue current medications Assessment & Plan (09/13/2022 11:01 AM EDT): - Lab Results Component Value Date HGBA1C 6.9 (A) 09/13/2022 HGBA1C 8.4 (A) 06/10/2022 HGBA1C 7.2 (A) 05/02/2022 - Lab Results Component Value Date MICROALBUR 3.7 02/05/2021 CREATININE 0.99 09/04/2022 - Diabetic eye exam: up to date - Continue lifestyle modifications - Continue current medications Assessment & Plan (06/10/2022 10:00 AM EDT): Today A1c 8.8 and glucose 154 - Lab Results Component Value Date HGBA1C 7.2 (A) 05/02/2022 HGBA1C 7.8 (H) 02/05/2021 HGBA1C 7.8 (H) 08/02/2020 - Lab Results Component Value Date MICROALBUR 3.7 02/05/2021 CREATININE 1.16 05/14/2022 - Diabetic eye exam: up to date - Diabetic foot exam: to be done next appointment - extensive counseling about healthy diet, exercise and weight reduction done today - Continue with metformin 500mg BID, glipizide 10mg daily, tulicity 3mg weekly I added today jardaince 10mg daily Assessment & Plan (05/02/2022 12:10 PM EST): A1C is at goal. FU with PCP Counseled low calorie meals, he had soda + bread + banana for breakfast Hypercholesterolemia 12/04/2011 Thyroid nodule 12/04/2011 Overview (05/02/2022): Dr Martínez [facility], L lobe nodule bx 11/2012, benign, recommend rpt US 2014 Chronic gout 12/04/2011 Overview (05/21/2022): Multiple attacks since age 48 Right foot, left knee and ankle Chronic low back pain 12/04/2011 Hypertension 12/04/2011 Assessment & Plan (09/12/2023 1:12 PM EDT): - Aerobic exercise to reduce BP. Initial goal of 30 min walk 3-5x/week. Increase as tolerated. - low-sodium diet (goal: <2g/day) and heart healthy diet such as DASH to reduce BP and prevent ASCVD. - Home BP monitoring 1-2 x day with goal of <140/90. - Seek immediate medical attention for chest pain, palpitations, SOB, syncope, or sudden changes in mental status. - Do not change or discontinue current prescriptions without first consulting health care provider Assessment & Plan (05/16/2023 9:40 AM EST): Maintenance: BMP: up to date Lipid Panel: up to date ASCVD Risk: high risk patient is on atorvastatin max dose, aspirin and elequis - Aerobic exercise to reduce BP. Initial goal of 30 min walk 3-5x/week. Increase as tolerated. - low-sodium diet (goal: <2g/day) and heart healthy diet such as DASH to reduce BP and prevent ASCVD. - Home BP monitoring 1-2 x day with goal of <140/90. - Seek immediate medical attention for chest pain, palpitations, SOB, syncope, or sudden changes in mental status. - Do not change or discontinue current prescriptions without first consulting health care provider Assessment & Plan (01/07/2023 9:53 AM EDT): - Aerobic exercise to reduce BP. Initial goal of 30 min walk 3-5x/week. Increase as tolerated. - low-sodium diet (goal: <2g/day) and heart healthy diet such as DASH to reduce BP and prevent ASCVD. - Home BP monitoring 1-2 x day with goal of <140/90. - Seek immediate medical attention for chest pain, palpitations, SOB, syncope, or sudden changes in mental status. - Do not change or discontinue current prescriptions without first consulting health care provider Assessment & Plan (06/10/2022 10:02 AM EDT): Maintenance: BMP: up to date Lipid Panel: ordered today Patient already on max dose statin - Aerobic exercise to reduce BP. Initial goal of 30 min walk 3-5x/week. Increase as tolerated. - low-sodium diet (goal: <2g/day) and heart healthy diet such as DASH to reduce BP and prevent ASCVD. - Home BP monitoring 1-2 x day with goal of <140/90. - Seek immediate medical attention for chest pain, palpitations, SOB, syncope, or sudden changes in mental status. C/w amlodipine 10mg daily, metoprolol 50mg, I increase losartan today to 100mg, patient has appointment with cardiology on 06/18/22 BP will be recheck at this visit Depressive disorder 12/04/2011 Encounters Date Type Department Care Team Description 03/19/2024 9:30 AM EST Office Visit [facility] [address] [place] [address] Abdiel, Aye, OD Diabetes type 2, no ocular involvement (CMS/HCC) (Primary Dx); Dry eyes; White without pressure of peripheral retina of both eyes; Early cataracts, bilateral; Presbyopia of both eyes 03/19/2024 Travel 03/05/2024 Refill [facility] [address] [place] [address] Hanna Wheat MD 02/25/2024 Refill [facility] [address] [place] [address] Kendra Joya MD Primary hypertension; Type 2 diabetes mellitus with hyperglycemia, without long-term current use of insulin ([facility]) 02/25/2024 Refill [facility] [address] [place] [address] Hanna Wheat MD Primary hypertension; Type 2 diabetes mellitus without complication, unspecified whether group home insulin use ([facility]); Atherosclerosis of coronary artery of zuni heart with stable angina pectoris, unspecified vessel or lesion type ([facility]); Dyslipidemia; Mixed hyperlipidemia; Type 2 diabetes mellitus with hyperglycemia, without long-term current use of insulin ([facility]) 02/16/2024 Refill [facility] [address] [place] [address] Hanna Wheat MD Primary osteoarthritis of both knees 01/22/2024 Telephone [facility] [address] [place] [address] Rand Salazar [place] 01/22/2024 Refill [facility] [address] [place] [address] Pham Parikh FNP Type 2 diabetes mellitus with hyperglycemia, without long-term current use of insulin ([facility]) 01/20/2024 Refill [facility] [address] [place] [address] Hanna Wheat MD Primary osteoarthritis of both knees 01/20/2024 Refill [facility] [address] [place] [address] Hanna Wheat MD Primary osteoarthritis of both knees from Last 3 Months Immunizations Name Administration Dates Next Due HepB-CpG 08/14/2022,05/28/2022 INFLUENZA INJECTABLE QUADRIV ALANT CCIIV4 MDCK Multi-dose vial 01/08/2020 Influenza Injectable Quadriv alant Preservative Free IIV4 MDCK 12/28/2020,03/12/2018 Influenza injectable quadriv alent IIV4 with preservative 11/29/2014 Influenza injectable quadriv alent preservative free 01/07/2023,12/18/2021,12/10/2018 Influenza, IIV3, injectable 11/27/2015, 4,11/06/2010 Influenza, Split (incl. wilfredo fied surface antigen) 12/28/2012,12/04/2011 Influenza, Unspecified 11/27/2015,12/20/2013, Influenza, seasonal, injecta ble, preservative free 01/01/2024 Chidi SARS-CoV-2 Vaccination 05/31/2020 Pfizer Covid-19 Vaccine 12+ 01/01/2024,1 03/19/2022,12/18/2021,06/21 Pfizer Covid-19 Vaccine 12+ Bivalent 12/18/2021 Pfizer Covid-19 Vaccine 12+ pina-sucrose (Britt Cap) 06/21/2021 Pneumococcal Conjugate PCV 13 10/08/2016 Pneumococcal Polysaccharide PPSV23 10/21/2016, TD (adult), 2 Lf tetanus tox oid, preservative free, adsorbed 08/19/2018,12/14/2002 Td (adult), 5 Lf tetanus tox oid, preservative free, adsorbed 08/16/2011 Tdap 10/08/2016 Zoster, Recombinant 08/14/2022,05/28/2022 Social History Tobacco Use Types Packs/Day Years Used Date Smoking Tobacco: Never Passive Smoke Exposure: Never Smokeless Tobacco: Never Tobacco Cessation:Counseling Given: Not Answered Alcohol Use Standard Drinks/Week Comments Not Currently [...] EDT Travel History Travel Start Travel End [place] 02/23/2024 03/11/2024 Last Filed Vital Signs Vital Sign Reading Time Taken Comments Blood Pressure 140/82 10/17/2023 12:59 PM EDT Pulse 83 10/17/2023 11:34 AM EDT Temperature 36.1 ??C (97 ??F) 10/17/2023 11:34 AM EDT Respiratory Rate 20 09/12/2023 9:33 AM EDT Oxygen Saturation 98% 10/17/2023 11:34 AM EDT Inhaled Oxygen Concentration - - Weight 115 kg (254 lb 4.8 oz) 10/17/2023 11:34 A M EDT Height 175.3 cm (5' 9 ) 10/17/2023 11:34 AM EDT Body Mass Index 37.55 10/17/2023 11:34 AM EDT Plan of Treatment Health Maintenance Due Date Last Done Comments CT Colonography 1964 FIT DNA/Cologuard 1964 FIT 1964 FOBT 1964 HIV Screening 1964 Sigmoidoscopy 1964 Diabetes: Foot Exam 1974 Alcohol/Substance Use Screening 1976 Hepatitis C Screening 1982 Hepatitis A Vaccines (1 of 2 - Risk 2-dose series) 1983 Lipid Panel 08/02/2021 08/02/2020 Diabetes: Urine Protein Screening 02/05/2022 02/05/2021 Colonoscopy 05/29/2023 05/28/2020 Colorectal Cancer Screening 05/29/2023 RSV Patients and Patients Aged 60 years or older (1 - Risk 60-74 years 1-dose series) 2024 Diabetes: Hemoglobin A1C 03/14/2024 024, 05/16/2023, 01/07/2023, Additional history exists Depression Screening 05/15/2024 05/16/2023, 05/16/19 24 SDOH Screening 09/01/2024 09/02/2023 Tobacco Screening 04/02/2025 04/02/2024 Eye Exam 03/19/2026 03/19/2024, 03/10, 03/19/2024, Additional history exists DTaP/Tdap/Td Vaccines (3 - Td or Tdap) 08/19/2028 08/19/2018, 10/08/2016, 08/16/2011, Additional history exists Pneumococcal Vaccine: Pediatrics (0 to 5 Years) and At-Risk Patients (6 to 49) Years) (3 of 3 - PPSV23 or PCV20) 2029 10/21/2016, 10/08/2016, 02/11/2002 Hepatitis B Vaccines Completed 08/14/2022, 05/29/19 Zoster Vaccines Completed 08/14/2022, 05/28/2022 COVID-19 Vaccine Completed 01/01/2024, 12/2022, 12/18/2021, Additional history exists Influenza Vaccine Completed 01/01/2024, , 12/18/2021, Additional history exists HIB Vaccines Aged Out No longer eligi ble based on patient's age to complete this topic HPV Vaccines Aged Out No longer eligi ble based on patient's age to complete this topic IPV Vaccines Aged Out No longer eligi ble based on patient's age to complete this topic Meningococcal Vaccine Aged Out No patrick summer eligible based on patient's age to complete this topic RSV under 20 months Aged Out No longe r eligible based on patient's age to complete this topic Rotavirus Vaccines Aged Out No longer eligible based on patient's age to complete this topic Procedures Procedure Name Priority Date/Time Associated Diagnosis Comments POCT GLYCATED HEMOGLOBIN, TOTAL Routine 09/12/2023 9:34 AM EDT Type 2 diabetes mellitus with hyperglycemia, without long-term current use of insulin ([facility]) ALBUMIN, RANDOM URINE W/CREATININE Routine 02/05/2021 2:07 PM EST LIPID PANEL, STANDARD Routine 08/02/2020 8:24 AM EDT HM COLONOSCOPY Routine 05/28/2020 from Last 3 Months or Most Recently Relevant to Health Maintenance Results * (ABNORMAL) POCT HGB A1C (09/12/2023 9:34 AM EDT) Hemoglobin A1C 6.4(A) 4.0 - 6.0 % QC Media Lot # [id number] Lot# Expiration Date , Blood 09/12/2023 9:34 AM EDT Hanna Kimball MD POINT OF CARE TEST EN TER/EDIT ORDERABLES Final Result * ALBUMIN, RANDOM URINE W/CREATININE (02/05/2021 2:07 PM EST) Microalbumin Urine 3.7 See Note: mg/dL [facility] Comment: Reference Range: ?? Reference Range Not established Microalb/Creat Ratio 27 <30 mcg/mg creat [facility] Comment: ?? The ADA defines abnormalities in albumin excretion as follows: ?? Albuminuria Category ?Result (mcg/mg creatinine) ?? Normal to Mildly increased ?? <30 Moderately increased ? 30-299 ?? Severely increased ? > OR = 300 ?? The ADA recommends that at least two of three specimens collected within a 3-6 month period be abnormal before considering a patient to be within a diagnostic category. Creatinine, Urine 137 20 - 320 mg/dL [facility] 02/05/2021 2:07 PM EST Loretta Kitty Kimball MD LAB URINE ORDERABLES Final Result [facility] [address] * (ABNORMAL) LIPID PANEL, STANDARD (08/02/2020 8:24 AM EDT) Chol/HDLC Ratio 7.5(H) <5.0 (calc) [facility] Cholesterol, Total 234(H) <200 mg/dL [facility] HDL Cholesterol 31(L) > OR = 40 mg/dL [facility] LDL Cholesterol SEE COMMENT mg/dL (calc) [facility] Comment: ?? LDL cholesterol not calculated. Triglyceride levels greater than 400 mg/dL invalidate calculated LDL results. ?? Reference range: <100 ?? Desirable range <100 mg/dL for primary prevention; ?? <70 mg/dL for patients with CHD or diabetic patients ?? with > or = 2 CHD risk factors. ?? LDL-C is now calculated using the Kalen ?? calculation, which is a validated novel method providing ?? better accuracy than the Friedewald equation in the ?? estimation of LDL-C. ?? Mauro BONILLA et al. LENA. 2013;310(19): 0088-0124 ?? (http://education.OluKai/faq/WVG372) Non-HDL Cholesterol 203(H) <130 mg/dL (calc) [facility] Comment: For patients with diabetes plus 1 major ASCVD risk ?? factor, treating to a non-HDL-C goal of <100 mg/dL ?? (LDL-C of <70 mg/dL) is considered a therapeutic ?? option. Triglycerides 574(H) <150 mg/dL [facility] Comment: ?? If a non-fasting specimen was collected, consider repeat triglyceride testing on a fasting specimen if clinically indicated. ?? Piyush et al. J. of Clin. Lipidol. 2015;9:129-169. ? There is increased risk of pancreatitis when the ?? triglyceride concentration is very high ?? (> or = 500 mg/dL, especially if > or = 1000 mg/dL). ?? Piyush et al. J. of Clin. Lipidol. 2015;9:129-169. ?? 08/02/2020 8:24 AM EDT Hanna Kimball MD LAB BLOOD ORDERABLES Final Result [facility] [address] [place] [address], * Hm Colonoscopy (05/28/2020) us Historical Provider HEALTH MAINTENANCE Final Result from Last 3 Months or Most Recently Relevant to Health Maintenance [facility] Care Teams Maid Supervisor Relationship Specialty Start Date End Date Hanna Wheat MD [address] [place] [phone] PCP - General Family Medicine 10/30/18 Concetta Garcia Cnc Machine OperatorCustomizer 11/28/22
--- OUTSIDE RECORDS SUMMARY | 2024-04-07 11:31 | XMS_ITS | Encounter Summary ---
Author Organization [facility] Address [address] [place] [address] [address] [address] Care Team Providers Care Mobile Product Manager Name Role Phone Hanna Wheat MD Primary Care Provide r Encounter Details Date Type Department Care Team (Late st Contact Info) Description 11/15/2022 Orders Only [facility] [address] [place], [place] [phone] Provider, MD Jacinto Social History Tobacco Use Types Packs/Day Years [...] EDT Travel History Travel Start Travel End [place] 02/23/2024 03/11/2024 documented as of this encounter Plan of Treatment Not on file documented as of this encounter Procedures Procedure Name Priority Date/Time Associated Diagnosis Comments COLONOSCOPY Routine 05/28/2020 documented in this encounter Results * Hm Colonoscopy (05/28/2020) Historical Provider HEALTH MAINTENANCE Final Result documented in this encounter Visit Diagnoses Not on filedocumented in this encounter Care Teams Mobile Product Manager Relationship Specialty Start Date End Date Hanna Wheat MD [address] [place], [place] [phone] PCP - General Family Medicine 10/30/18 Concetta Garcia Geophysical EngineerClinical Documentation Developer 11/28/22 documented as of this encounter
--- OUTSIDE RECORDS SUMMARY | 2024-04-07 11:31 | XMS_ITS | Clinical Summary ---
Author Organization [facility] it[facility] Address [address] [place] [address] Care Team Providers Care Applied Mathematician Name Role Phone Hanna Wheat MD Primary Care Provide r Surgical History Surgery Date Site/Laterality Comments CARDIAC CATHETERIZATION PROCEDURE: HISTORICAL CARDIAC CATH; COMMENT: Cath Jan 2014 s/p mult stents at [facility] APPENDECTOMY PROCEDURE: HISTORICAL APPENDECTOMY HERNIA REPAIR PROCEDURE: HISTORICAL HERNIA REPAIR/UMB OTHER SURGICAL HISTORY PROCEDURE: ---- OTHER ----; COMMENT: sinus surgery COLONOSCOPY 2014 PROCEDURE: HISTORICAL COLONOSCOPY; COMMENT: repeat in 5 yrs, per patient, at [facility] Medical History Medical History Date Comments Atrial fibrillation (CMS/HCC) 11/27/2015 DX :Atrial fibrillation ([facility]); COMMENT: During hospital admission at [facility] Nov 2015, reverted to sinus wiith meds, f/u Cardio at [place], will have 30day loop recorder, off anticoagulation per cardiology CAD (coronary artery disease) 10/27/2015 DX :CAD (coronary artery disease); COMMENT: Cath Jan 2014, s/p multiple stent at [facility], Dr Luo, Several stress tests, echos Chronic gout 10/27/2015 DX:Chronic gout; COMMENT: Left knee and ankle Complicated migraine 10/29/2016 DX:Complica den migraine; COMMENT: 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, 2005, Dr Whiting, on Neurontin Diabetes mellitus type 2 wit h neurological manifestations (CMS/HCC) 10/29/2016 DX:Diabetes cheri itus type 2 with neurological manifestations (HCC); COMMENT: Basim CTS Diverticulosis 10/29/2016 DX:Diverticulosi s; COMMENT: CT 03/10/2015 sigmoid, DJD of left shoulder 10/29/2016 DX:DJD of l eft shoulder DM (diabetes mellitus), type 2 with peripheral vascular complications (CMS/HCC) 10/27/2015 DX:DM (diabetes mellitus), t ype 2 with peripheral vascular complications (HCC); COMMENT: Mild atherosclerotic disease of distal aorta and its branches CT 01/13/2014 Essential hypertension 10/27/2015 DX:Essent ial hypertension Fatty liver 10/29/2016 DX:Fatty liver Gastroesophageal reflux disease 10/27/2015 DX:Gastroesophageal reflux disease; COMMENT: Small sliding hiatal hernia Hemorrhoids 05/24/2016 DX:Hemorrhoids History of CVA (cerebrovascu lar accident) without residual deficits 10/28/2016 DX:History of CVA (cerebrovascular accident) without residual deficits; COMMENT: 10/19/16 aborted with TPA History of nephrolithiasis 10/29/2016 DX:Hi story of nephrolithiasis; COMMENT: 2004 Hypercholesterolemia 10/27/2015 DX:Hypercho lesterolemia Lumbar spondylosis 10/29/2016 DX:Lumbar spo ndylosis; COMMENT: DDD, facet arthropathy MRI 04/21/2012 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/2016 DX:Mesenteric panniculitis (HCC); COMMENT: CT 03/10/2015 Microalbuminuria 10/29/2016 DX:Microalbumin uria Mixed anxiety and depressive disorder 10/08/2016 DX:Mixed anxiety and depressive disorder; COMMENT: F/u [facility] Peripheral vascular disease (CMS/HCC) 10/29/2016 DX:Peripheral vascular disease (HCC); COMMENT: Distal aorta and branches on CT 2013 Renal cyst 10/29/2016 DX:Renal cyst; C OMMENT: On CT Seizure disorder (CMS/HCC) 10/29/2016 DX:Se izure disorder (HCC) Thyroid nodule 10/29/2016 DX:Thyroid nodul e; COMMENT: Dr Martínez [facility], L lobe nodule bx 11/2012, benign, recommend rpt US 2014 Type 2 diabetes with nephrop athy (CMS/HCC) 10/29/2016 DX:Type 2 diabetes with neph ropathy (HCC); COMMENT: microalbuminuria Alcohol abuse 10/09/2017 DX:Alcohol abuse Asthma 12/02/2018 DX:Asthma Family History Medical History Relation Name Comments Suicide Attempts Brother 1 Diabetes Brother 2 Arthritis Mother Relation Name Status Comments Brother 1 accident Brother 2 Alive Father (Age 62) seizure di sorder Mother Alive Social History Tobacco Use Types Packs/Day Years Used Date Smoking Tobacco: Never Smokeless Tobacco: Never Alcohol Use Standard Drinks/Week Comments No 0 (1 standard drink = 0.6 oz pur e alcohol) Sex and Gender Information Value Date Recorded Sex Assigned at Not on file Gender Identity Not on file Sexual Orientation Not on file Obstetrics History Last Filed Vital Signs Vital Sign Reading Time Taken Comments Blood Pressure - - Pulse - - Temperature - - Respiratory Rate - - Oxygen Saturation - - Inhaled Oxygen Concentration - - Weight 117 kg (257 lb) 05/14/2023 8:59 AM EST Height 175.3 cm (5' 9 ) 05/14/2023 8:59 AM EST Body Mass Index 37.95 05/14/2023 8:59 AM EST Plan of Treatment Health Maintenance Due Date Last Done Comments Diabetes: Annual GFR (Glomerular Filtration Rate) 1964 Diabetes: Annual Foot Exam 1974 Diabetes: Annual Retina Eye Exam 1974 Hepatitis A Vaccines (1 of 2 - Risk 2-dose series) 1983 Zoster Vaccines (1 of 2) 2014 Cholesterol Screening (Lipid Panel) 10/07/2023 Colorectal Cancer Screening: Colonoscopy 10/07/2023 Depression Screening 10/07/2023 Diabetes: Annual Urine Albumin-Creatinine Ratio (uACR) 10/07/2023 Diabetes: Blood Sugar Contro l Test (HGBA1C) 10/07/2023 HIV Screening 10/07/2023 Hepatitis C Screening 10/07/2023 Hypertension/CHF/CAD Annual BMP Blood Test 10/07/2023 Social Influencers of Health Screening 10/07/2023 COVID-19 Vaccine ( - 2023-2 5 season) 2023 Influenza Vaccine (#1) 2023 9, 11/27/2015 Hepatitis B Vaccines (1 of 3 - Risk 3-dose series) 2024 RSV Immunization Patients 60 + Years Old (1 - Risk 60-74 years 1-dose series) 2024 DTaP,Tdap,and Td Vaccines (3 - Td or Tdap) 10/08/2026 10/08/2016, 12/14/2002 Pneumococcal Vaccine: Pediatrics (0 to 5 Years) and At-Risk Patients (6 to 64 Years) (3 of 3 - PPSV23 or PCV20) 2029 10/08/2016, 02/11/2002 HIB Vaccines Aged Out No longer eligi ble based on patient's age to complete this topic HPV Vaccines Aged Out No longer eligi ble based on patient's age to complete this topic IPV Vaccines Aged Out No longer eligi ble based on patient's age to complete this topic MMR Vaccines Aged Out No longer eligi ble based on patient's age to complete this topic Meningococcal ACWY Vaccine Aged Out N o longer eligible based on patient's age to complete this topic RSV Immunization Patients Under 20 months Aged Out No longer eligible b ased on patient's age to complete this topic Varicella Vaccines Aged Out No longer eligible based on patient's age to complete this topic Care Teams Applied Mathematician Relationship Specialty Start Date End Date Hanna Wheat MD [address] [place] [phone] PCP - General 03/20/23
--- OUTSIDE RECORDS SUMMARY | 2024-04-07 11:31 | XMS_ITS | Encounter Summary ---
Author Organization [facility] Address [address] [place] [address] [address] [place] [address] Care Team Providers Care Executive Marketing Assistant Name Role Phone Hanna Wheat MD Primary Care Provide r Encounter Details Date Type Department Care Team (Late st Contact Info) Description 07/07/2022 Orders Only [facility] [address] [place], [place] [phone] Kendra Joya MD [address] [place] [address] Social History Tobacco Use Types Packs/Day Years [...] Travel Start Travel End [place] 02/23/2024 03/11/2024 COVID-19 Exposure Response Date Recorded In the last 10 days, have yo u been in contact with someone who was confirmed or suspected to have Coronavirus/COVID-19? No / Unsure 07/04/2022 9:06 AM EDT documented as of this encounter Plan of Treatment Not on file documented as of this encounter Visit Diagnoses Not on filedocumented in this encounter Care Teams Executive Marketing Assistant Relationship Specialty Start Date End Date Hanna Wheat MD [address] [place] [phone] PCP - General Family Medicine 10/30/18 Concetta Garcia Newspaper InserterMultiple Tube Winding Machine Operator 11/28/22 documented as of this encounter
--- OUTSIDE RECORDS SUMMARY | 2024-04-07 11:31 | XMS_ITS | Clinical Summary ---
Author Organization [facility] Address [address] [place] [address] [place] [phone] Phone Care Team Providers Care Appliance Worker Name Role Phone Unavailable Primary Care Provider Unavailabl e Allergies Active Allergy Reactions Criticality Noted Date Comments Codeine 11/21/2022 Docusate Rash,Other (see comments) Low 08/27/2011 Ondansetron 05/14/2016 Penicillin G Other (see comments),Swelling 11/08 Sulfa Antibiotics 05/14/2016 Sulfasalazine 11/21/2022 Medications omeprazole (PriLOSEC) [address] capsule Take 40 mg by mouth 9 Active metoprolol tartrate (LOPRESSOR) 50 MG tablet Take 25 mg by mouth 0 Active glipiZIDE (GLUCOTROL XL) 10 MG 24 hr tablet TAKE 1 TABLET BY MOUTH TWICE DAILY IN THE MORNING AND IN THE EVENING WITH MEALS 1 Active fenofibrate (TRIGLIDE) 160 MG tablet Take 160 mg by mouth 7 Active Dulaglutide 0.75 MG/0.5ML solution pen-injector INJECT ONE PEN (=0.75MG) SUBCUTANEOUSLY ONCE A WEEK DIRECTED 1 Active atorvastatin (LIPITOR) 80 MG tablet Take 80 mg by mouth 7 Active acetaminophen (TYLENOL) 325 MG tablet Take 975 mg by mouth 0 Active albuterol HFA (Proventil HFA) 108 (90 Base) MCG/ACT inhaler INHALE 2 PUFFS BY MOUTH EVERY 4 TO 6 HOURS NEEDED 0 Active allopurinol (ZYLOPRIM) 100 MG tablet TAKE 2 TABLETS TWICE DAILY IN THE MORNING AND EVENING (PARA GOTA) 0 Active amLODIPine (NORVASC) 10 MG tablet TAKE 1 TABLET BY MOUTH EVERYDAY AT NOON 1 Active apixaban (ELIQUIS) 5 MG tablet Take 5 mg by mouth 0 Active aspirin (ST NICK) 81 MG EC tablet Take 81 mg by mouth 0 Active Active Problems Problem Noted Date Diagnosed Date Type 2 diabetes mellitus 11/21/2022 023 Hypertensive disorder 11/21/2022 11/21/2022 Hyperlipidemia 11/21/2022 11/21/2022 Gout 11/21/2022 11/21/2022 Coronary arteriosclerosis 11/21/20222022 Chronic obstructive pulmonary disease 11/21/2022 11/21/2022 Acute nontraumatic kidney injury 09/13/2022 Patient encounter status 09/13/2022 023 Overview (11/21/2022): Last Assessment & Plan: Please see HPI Migraine without aura, not refractory 09/13/2022 11/21/2022 Overview (11/21/2022): Last Assessment & Plan: I advise to avoid migraine triggers like red wine, chocolate, cheese, strong perfumes C/w topiromate 25mg at bed time Acquired syphilis 06/10/2022 11/21/2022 Overview (11/21/2022): Last Assessment & Plan: Finish doxycycline course and f/u with infection disease specialist Transient cerebral ischemia 06/10/202211/08 Overview (11/21/2022): Last Assessment & Plan: No further symptoms since hospital visit I will optimize management for HTN and DM type 2 Today extensive counseling life style modifications Patient will continue aspirin, atorvastatin and elequis Multiple joint pain 05/24/2022 11/21/2022 Contusion of rib 05/21/2022 11/21/2022 Epigastric pain 05/21/2022 11/21/2022 Hemangioma of liver 05/21/2022 11/21/2022 Gouty arthritis of left hand 05/21/2022 Rectal hemorrhage 05/02/2022 11/21/2022 Overview (11/21/2022): Last Assessment & Plan: Rectal drains from fistula working well, no active bleeding. r/o bleeding hemorrhoid vs diverticulitis. Left lower quadrant pain 05/02/2022 023 Overview (11/21/2022): Last Assessment & Plan: r/o diverticulitis, he has history of diverticulosis Order CT scan of the abdomen and pelvis with and without contrast, r/o pericolic abscess as well due to recent procedure. FU with Dr. Shah next week. Recommended soft and liquid diet and go to ED if he develops Fever, uncontrollable rectal bleeding, worsening pain. FU with me in 1 month. Asthma 12/02/2018 11/21/2022 Primary osteoarthritis of left knee 10/10/2017 11/21/2022 Alcohol abuse 10/09/2017 11/21/2022 Seizure disorder 10/29/2016 11/21/2022 Overview (11/21/2022): 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, 2006, Dr Whiting, on Neurontin 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, 2006, Dr Whiting, on Neurontin Cyst of kidney 10/29/2016 11/21/2022 Overview (11/21/2022): On CT On CT Diverticular disease 10/29/2016 11/21/2022 Overview (11/21/2022): CT 03/10/2015 sigmoid, CT 03/10/2015 sigmoid, History of calculus of kidney 10/29/2016 Overview (11/21/2022): 2004 Fatty liver 10/29/2016 11/21/2022 Osteoarthritis of joint of left shoulder region 10/29/2016 11/21/2022 Microalbuminuria 10/29/2016 11/21/2022 Mesenteric panniculitis 10/29/2016 11/22/19 23 Overview (11/21/2022): CT 03/10/2015 Lumbar spondylosis 10/29/2016 11/21/2022 Overview (11/21/2022): DDD, facet arthropathy MRI 04/21/2012 Type 2 diabetes mellitus wit h other diabetic neurological complication 10/29/2016 11/21/2022 Overview (11/21/2022): Basim CTS Basim CTS History of cerebrovascular a ccident without residual deficits 10/28/2016 11/21/2022 Overview (11/21/2022): 10/19/16 aborted with TPA Hemorrhoid 05/24/2016 11/21/2022 Atrial fibrillation 11/27/2015 11/21/2022 Gastroesophageal reflux disease 10/27/2015 11/21/2022 Overview (11/21/2022): Small sliding hiatal hernia Small sliding hiatal hernia Chronic low back pain 12/04/2011 11/21/2022 Depressive disorder 12/04/2011 11/21/2022 Overview (11/21/2022): F/u [facility] Thyroid nodule 12/04/2011 11/21/2022 Overview (11/21/2022): Dr Mauricio Banerjee, L lobe nodule bx 11/2012, benign, recommend rpt US 2015 Dr Mauricio Banerjee, L lobe nodule bx 11/2012, benign, recommend rpt US 2014 Immunizations Name Administration Dates Next Due HepB-CpG 08/14/2022,05/28/2022 Influenza Split 12/28/2012,12/04/2011 Influenza, MDCK, PF, Quadrivalent 12/28/2020,05/2018 Influenza, MDCK, Quadrivalen t, with preservative 01/08/2020 Influenza, Quadrivalent, Preservative Free 12/18,12/10/2018 Influenza, Quadrivalent, With Preservative 11/29 Influenza, Unspecified 11/27/2015,12/20/2013, Mover SARS-COV-2 05/31/2020 Pfizer SARS-COV-2 12/18/2021,06/21/2021 Pneumococcal Conjugate 13-Valent 10/08/2016 Pneumococcal Polysaccharide 10/21/2016, 2 Shingrix 08/14/2022,05/28/2022 TD Preservative Free 08/16/2011 Td 08/19/2018,12/14/2002 Tdap 10/08/2016 Family History Medical History Relation Comments Stroke Father Cancer Mother Relation Status Comments Father Mother Social History Tobacco Use Types Packs/Day Years Used Date Smoking Tobacco: Never Smokeless Tobacco: Never Tobacco Cessation:Counseling Given: Not Answered Alcohol Use Standard Drinks/Week Comments Yes 0 (1 standard drink = 0.6 oz pur e alcohol) Sex and Gender Information Value Date Recorded Sex Assigned at Not on file Legal Sex Male 4:56 PM EST Gender Identity Not on file Sexual Orientation Not on file Last Filed Vital Signs Vital Sign Reading Time Taken Comments Blood Pressure 139/80 11/25/2022 1:45 PM EDT Pulse 77 11/25/2022 1:45 PM EDT Temperature - - Respiratory Rate - - Oxygen Saturation 99% 11/25/2022 1:45 PM EDT Inhaled Oxygen Concentration - - Weight 112 kg (247 lb 3.2 oz) 11/25/2022 1:45 PM EDT Height - - Body Mass Index - - Plan of Treatment Health Maintenance Due Date Last Done Comments Colorectal Cancer Screening: Annual FOBT 2013 Colorectal Cancer Screening: Colonoscopy 2013 Colorectal Cancer Screening: Sigmoidoscopy 2013 Diabetes: Ophthalmology Exam 10/03/2022 Diabetes: Pedal Pulse Checked 10/03/2022 Diabetes: Sensory Foot Exam 10/03/2022 Diabetes: Visual Foot Exam 10/03/2022 Hepatitis B Vaccine (3 of 3 - 19+ 3-dose series) 11/28/2022 08/14/2022, 05/28/2022 Diabetes: Hemoglobin A1C 04/09/2023 01/07/2023, 07/0 09/2022 Influenza Vaccine (#1) 2023 , 12/18/2021, 12/28/2020, Additional history exists Pneumococcal Vaccine: Pediatrics (0 to 5 Years) and At-Risk Patients (6 to 64 Years) Aged Out 10/21/2016, 10/08/2016, 02/11/2002 No longer eligible based on patient's age to complete this topic [facility] [id number] MED[place] MEDICAID [place]
== END 2024-04-07 10:16 | disposition home or self-care (01) ==
PROVIDERS: Visit Provider Internal Medicine Cardiovascular Disease
DX: I10 Essential (primary) hypertension (principal); I25.10 Atherosclerotic heart disease of native coronary artery without angina pectoris; I48.92 Unspecified atrial flutter
CPT/HCPCS: 99214

== ENCOUNTER → 2024-04-07 09:47 | Outpatient (BNVA) | payer MEDICAID, SELFPAY | PROVIDERS: Visit Provider Internal Medicine Cardiovascular Disease | DX: I25.10 Atherosclerotic heart disease of native coronary artery without angina pectoris (principal); I10 Essential (primary) hypertension; I48.92 Unspecified atrial flutter | CPT/HCPCS: 99212 ==

== ENCOUNTER 2024-05-11 08:52 | Outpatient (AMB) | payer MEDICAID, SELFPAY ==
--- NOTE | 2024-05-11 08:57 | MHC.OFFVIS ---
Vital Signs 05/11/24 09:05 Height 5 ft 9 in Weight 251 lb 12.286 oz BMI 37.2 BP 120/80 Blood Pressure Location Lt brachial Position Sitting Pulse 80 Pulse Source Pulse Oximeter Pulse Oximetry (%) 96 Oxygen Delivery Method Room Air Intake Visit Reasons: follow up Intake Note: Patient presents for follow up. Left knee swollen and both knees are in constant pain and it gets worst at night while sleeping Registered Nurse Maternity Required: Yes Registered Nurse Maternity Language: Food Service Team Member Services: Registered Nurse Maternity Present Registered Nurse Maternity Name: Kiel [id number] Information Interpreted: non-clinical & clinical Allergies Iodinated Contrast Media [IV CONTRAST] Allergy (Intermediate, Verified 05/11/24 09:05) Difficulty Breathing Penicillins Allergy (Mild, Verified 05/11/24 09:05) RASH Sulfa (Sulfonamide Antibiotics) Allergy (Mild, Verified 05/11/24 09:05) RASH codeine Adverse Reaction (Mild, Verified 05/11/24 09:05) STOMACH UPSET Docusate Calcium Allergy (Mild, Uncoded 09/20/23 22:02) rash Medication List - Last Reconciled 05/11/24 by Sangita Adhikari MD acetaminophen ER 650 mg PO Q8H PRN allopurinol 100 mg PO DAILY amlodipine 10 mg PO DAILY@1200 apixaban (Eliquis) 5 mg PO BID 90 days aspirin 81 mg PO DAILY atorvastatin 80 mg PO BEDTIME chlorthalidone 25 mg PO DAILY cholecalciferol (vitamin D3) 50 mcg PO DAILY colchicine 0.6 mg PO DAILY diclofenac sodium 3% 1 appl topical QID dulaglutide (Trulicity) 1.5 mg subcut FR@0900 empagliflozin (Jardiance) 10 mg PO DAILY esomeprazole magnesium (Nexium) 40 mg PO DAILY@0630 fenofibrate 160 mg PO BEDTIME fluticasone propionate 50 mcg/actuation 2 sprays intranasal DAILY PRN gabapentin 600 mg PO BID glipizide ER 1 tab PO BID isosorbide mononitrate ER 30 mg PO QPM lidocaine 5% 1 patch topical DAILY PRN linaclotide (Linzess) 145 mcg PO DAILY loperamide 2 mg PO Q4H PRN loratadine 10 mg PO DAILY losartan 100 mg PO DAILY metformin 500 mg PO BID metoprolol tartrate 1.5 tabs PO BID mometasone 100 mcg/actuation (Asmanex HFA) 1 inh inhalation DAILY niacin ER 500 mg PO BEDTIME oxycodone 5 mg PO BID PRN tamsulosin 0.4 mg PO DAILY HPI Comments Details: Patient is a 59-year-old male with hypertension, diabetes, AFib on Eliquis and benign prostate hypertension who presents for follow up of chronic tophaceous non crystal proven gout Interval History: Patient last seen 01/09/2024. At that time he was establishing care for the management of tophaceous gout. He was started on allopurinol and colchicine at that time. He also received bilateral knee steroid injections. Today, Patient states that he continues to have bilateral knee pain and hand pain. No improvement after the steroid injections 3 weeks ago, knees were swollen and he put warm patch on them and that worked Rheumatologic History: Initial history: Patient states that he has been pain for the past 3-4 years. Pain involving the left shoulder, bilateral knees and the fingers of the hands. Has noted swelling to the knees in the past but no swelling in the hands No prolonged AM stiffness States that 2 years ago he went to the ED with swollen knees and was told he had gout. No arthocentesis was done. Given medication and sent home. 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 No family history of RA Current Rheumatology Medication(s): Allopurinol 100 mg daily Colchicine 0.6 mg daily [facility] Medical History (Updated 05/11/24 @ 09:42 by Sangita Adhikari MD) Carpal tunnel syndrome on both sides Bilateral primary osteoarthritis of knee Hypertension Osteoarthritis TIA (transient ischemic attack) Chest pain Gastroparesis Anal fistula Low back pain Perianal abscess History of panic attacks Hx of myocardial infarction Arthritis GERD (gastroesophageal reflux disease) Scoliosis Asthma Tubular adenoma Migraines Seizures Depression Diabetes Adhesive capsulitis of left shoulder Atrial flutter CAD (coronary artery disease) Cellulitis Surgical History History of incision and drainage (~10/19/21) History of umbilical hernia repair History of esophagogastroduodenoscopy (EGD) H/O colonoscopy History of open heart surgery History of sinus surgery History of appendectomy History of angioplasty Family History Father No problems noted. Mother History of stomach cancer History of liver cancer Brother No problems noted. 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 child care centre manager to a significant other at home: Yes (children) Do you presently have visiting nurse or other home services: No Alcohol intake: current Alcohol intake frequency: holidays/special occasions only Alcohol type: beer Patient Tobacco Use Status: Never used Tobacco Advance Directives Date on File: 05/15/22 service: No Current occupational status: disabled Review of Systems Const Details: Review of Systems Constitutional: Denies fever, chills, weight loss ENT: Denies vision changes, eye pain or eye redness, dental caries, dry mouth GI: Denies nausea, vomiting, diarrhea, abdominal pain, change in BM Pulm: Denies SOB, LOBO, hemoptysis, wheezing Cards: Denies chest pain, palpitations Skin: Denies Raynaud's, rash, nail changes, photosensitivity, BALLOON DESIGN PRINTER: Denies headaches, weakness, paresthesias, recurrent falls MSK: as per HPI All other systems reviewed and are unremarkable except noted above Physical Exam Vital Signs: Last Vital Signs Pulse 80 05/11/24 09:05 BP 120/80 05/11/24 09:05 Pulse Ox 96 05/11/24 09:05 Oxygen Delivery Method Room Air 05/11/24 09:05 BMI result Body Mass Index 37.2 Vital signs reviewed Physical Examination CONSTITUITIONAL Patient alert and cooperative. Well appearing and in no apparent painful distress HEENT Conjunctiva and sclera clear. ?Pupils equal round and reactive to light. ?No lymphadenopathy. ? CHEST/RESPIRATORY SYSTEM Normal respiratory effort and able to speak in complete sentences. ?Clear to auscultation bilaterally. ?No crackles, rales, rhonchi, wheezes heard. CARDIAC SYSTEM Regular rate and rhythm. ?S1 and S2 heard no murmurs. ?Radial pulses intact bilaterally MSK Hands: ?Good apprentice funeral director strength bilaterally. No deformities noted. ?No synovitis noted to the MCPs, PIPs or DIPs. ?No tenderness to palpation of these joints. Heberden's nodes noted. Positive Phalen's test Wrists: ?Full range of motion at the wrists without pain. ?No tenderness to palpation or synovitis noted to the wrists. Elbows: Full range of motion without pain. No tenderness, weakness, swelling, increased warmth or erythema. Right elbow with prominent bursa Shoulders: Full range of motion without pain. No tenderness, weakness, swelling, increased warmth or erythema. Hips: Full range of motion without pain. Hip bursa: No tenderness to palpation Knees: ?Full range of motion. ?No tenderness, swelling, increased warmth or erythema.? Bilateral crepitations felt. No effusions Ankles: Full range of motion. ?No tenderness, swelling, increased warmth or erythema.? Feet: ?Negative squeeze test. ?No tenderness to palpation or swelling of the MTPs. Tender points:?No tenderness to palpation of the bilateral trapezius, supraspinatus, greater trochanters, anterior costochondral junctions, bilateral gluteal areas, bilateral suboccipital muscle insertions SKIN Skin intact without rashes. Results Reviewed Results Reviewed: Laboratory Tests 01/20/24 09:55 WBC 8.8 RBC 5.65 Hgb 15.3 Hct 47.5 ESR 4 Sodium 137 Potassium 4.0 Chloride 107 Carbon Dioxide 22 BUN 15 Creatinine 0.98 Uric Acid 5.8 Calcium 10.1 AST 30 ALT 38 Alkaline Phosphatase 98 C-Reactive Protein 0.64 H Rheumatoid Factor 44.0 H Cycl Citrul Peptide IgG <16 XR Bilateral Hands 08/2022 FINDINGS: Right: Degenerative changes are present at the radiocarpal joint. No other significant abnormality is seen. No fractures or dislocations. Left: Surgical clips are noted lateral to the distal radius. A radiopaque foreign body is noted in the fourth digit inferomedial to the distal portion of the middle phalanx. Some minimal degenerative changes are present at the radiocarpal joint. No other significant abnormality seen. No fractures or dislocations. Assessment & Plan Assessment & Plan (1) Bilateral primary osteoarthritis of knee: Code(s): M17.0 - Bilateral primary osteoarthritis of knee Category: Medical Plan: #Bilateral Knee OA Patient is a 59-year-old male here today for evaluation of bilateral knee pain. His history and exam is consistent with bilateral knee osteoarthritis. Given his history of 1st MTP pain I was concerned that this could be gout but his uric acid done the last visit was normal. We will stop his allopurinol and colchicine for now. And we will recheck his uric acid in 6 months. He got minimal relief from the steroid injection to bilateral knees. We are going to try gel injections with Durolane. Plan - XR Bilateral knees - PA for durolane injections - Continue topical diclofenac - Stop allopurinol and colchicine - RTC 6 months - Labs before visit: CBC, CMP, ESR, CRP, UA (2) Carpal tunnel syndrome on both sides: Code(s): G56.03 - Carpal tunnel syndrome, bilateral upper limbs Category: Medical Plan: #Bilateral CTS Patient with positive Phalen's test and numbness and tingling to the lateral 3rd digits consistent with carpal tunnel syndrome bilaterally. Recommending splint in for next 6 months. If this does not improve his symptoms we will proceed with bilateral carpal tunnel steroid injections. Plan - Splinting for the next 6 months - Steroid injections if no improvement (3) Osteoarthritis: Code(s): M19.90 - Unspecified osteoarthritis, unspecified site Category: Medical Qualifiers: Osteoarthritis location: multiple joints Osteoarthritis type: primary Qualified Code(s): M15.0 - Primary generalized (osteo)arthritis Plan I spent 30 minutes reviewing the record and labs, taking a history, examining the patient, discussing the treatment plan and documenting in the medical record Orders: Orders XR knee LT 3V Today G56.03 - Carpal tunnel syndrome, bilateral upper limbs, M17.0 - Bilateral primary osteoarthritis of knee XR knee RT 3V Today G56.03 - Carpal tunnel syndrome, bilateral upper limbs, M17.0 - Bilateral primary osteoarthritis of knee Complete Blood Count Auto Diff 6 Months M17.0 - Bilateral primary osteoarthritis of knee Comprehensive Met. Panel 6 Months M17.0 - Bilateral primary osteoarthritis of knee C Reactive Protein 6 Months M17.0 - Bilateral primary osteoarthritis of knee Erythrocyte Sedimentation Rate 6 Months M17.0 - Bilateral primary osteoarthritis of knee Uric Acid 6 Months M17.0 - Bilateral primary osteoarthritis of knee Medications: Discontinued allopurinol Discontinued Reason: Doctor's Order 100 mg PO DAILY 90 tabs 1RF M10.9 - Gout, unspecified colchicine Discontinued Reason: Doctor's Order 0.6 mg PO DAILY 90 tabs 1RF M10.9 - Gout, unspecified Coding Level of Care Code Est Pt Level 4 (65673) Diagnoses Bilateral primary osteoarthritis of knee M17.0 Carpal tunnel syndrome on both sides G56.03 Primary osteoarthritis involving multiple joints M15.0 Osteoarthritis location: multiple joints Osteoarthritis type: primary
[2024-05-11 09:05] VITALS: BP 120/80; PULSE 80; O2SAT 96; BMI 37.2
--- OUTSIDE RECORDS SUMMARY | 2024-05-11 09:35 | XMS_ITS | Clinical Summary ---
Author Organization [facility] Address [address] [place] [address] [place] [phone] Phone Care Team Providers Care Screen Vent Binder Name Role Phone Unavailable Primary Care Provider [...] Quadrivalent, With Preservative 11/29 Influenza, Unspecified 11/27/2015,12/20/2013, [employer] SARS-COV-2 05/31/2020 Pfizer SARS-COV-2 12/18/2021,06/21/2021 Pneumococcal Conjugate [...] 12/18/2021, 12/28/2020, Additional history exists Pneumococcal Vaccine: Pediat rics (0 to 5 Years) and At-Risk Patients (6 to 64 Years) (4 of 4 - PPSV23 or PCV20) 2029 10/21/2016, 10/08/2016, 02/11/2002 [place]
--- OUTSIDE RECORDS SUMMARY | 2024-05-11 09:35 | XMS_ITS | Encounter Summary ---
Author Organization [employer] Address [address] [facility] [address] [place] [address] Care Team Providers Care Hybrid Derivatives Trader Name Role Phone Hanna Wheat MD Primary Care Provide r Reason for Visit * Reason Comments Med Refill Encounter Details Date Type Department Care Team ([facility] st Contact Info) Description 05/04/2024 Refill [facility] MEDICINE [address] [place], [place] [phone] Hanna Wheat MD [address] [place], [place] [phone] Primary osteoarthritis of both knees Social History [...] not to disclose 2021 10:16 AM EDT documented as of this encounter Plan of Treatment Not on file documented as of this encounter Visit Diagnoses Diagnosis Primary osteoarthritis of both knees documented in this encounter Additional Health Concerns Assessment Noted Time PHQ-9 Depression Total Score: 0 05/16/19 24 9:06 AM EST documented as of this encounter Care Teams Hybrid Derivatives Trader Relationship Specialty Start Date End Date Hanna Wheat MD [address] [place] [phone] PCP - General Family Medicine 10/30/18 Concetta Garcia Employment Program RepresentativePrivacy Attorney 11/28/22 documented as of this encounter
--- OUTSIDE RECORDS SUMMARY | 2024-05-11 09:35 | XMS_ITS | Encounter Summary ---
Author Organization [facility] Address [address] [place] [address] [address] [place] [address] Care Team Providers Care Labor Operator Name Role Phone Hanna Wheat MD Primary [...] on filedocumented in this encounter Care Teams Labor Operator Relationship Specialty Start Date End Date Hanna Wheat MD [address] [place] [id number] PCP - General Family Medicine 10/30/18 Concetta Garcia Double Ending Machine OperatorBag Loader Machine Operator 11/28/22 documented as of this encounter
--- OUTSIDE RECORDS SUMMARY | 2024-05-11 09:35 | XMS_ITS | Encounter Summary ---
Author Organization [employer] Address [address] [facility] [address] [place] [address] Care Team Providers Care Window Shade Cutter And Mounter Name Role Phone Hanna Wheat MD Primary Care Provide r Encounter Details Date Type Department Care Team (Late st Contact Info) Description 04/28/2024 11:00 AM EST Office Visit [facility] OPTOMETRY [address] [place] [address] Abdiel, Aye, OD [address] [place] [address] Presbyopia of both eyes (Primary Dx) Social History Tobacco Use Types Packs/Day Years [...] AM EDT documented as of this encounter Progress Notes * Aye Meadows OD - 04/28/2024 11:00 AM EST MH glasses were dispensed. documented in this encounter Plan of Treatment Not on file documented as of this encounter Visit Diagnoses Diagnosis Presbyopia of both eyes- Primary documented in this encounter Additional Health Concerns Assessment Noted Time PHQ-9 Depression Total Score: 0 05/16/19 24 9:06 AM EST documented as of this encounter Care Teams Window Shade Cutter And Mounter Relationship Specialty Start Date End Date Hanna Wheat MD [address] [place] [phone] PCP - General Family Medicine 10/30/18 Concetta Garcia Manager TelemetryTeam Psychologist 11/28/22 documented as of this encounter
--- OUTSIDE RECORDS SUMMARY | 2024-05-11 09:35 | XMS_ITS | Encounter Summary ---
Author Organization [employer] Address [address] [facility] [address] [place] [address] Care Team Providers Care Resident Care Aid Name Role Phone Hanna Wheat MD Primary Care Provide r Reason for Visit * Reason Comments Med Refill Encounter Details Date Type Department Care Team ([facility] st Contact Info) Description 04/28/2024 Refill [facility] MED & PEDS [address] [place], [place] [phone] Hanna Wheat MD [address] [place] [address] Type 2 diabetes mellitus with hyperglycemia, without long-term current use of insulin ([facility]) Social History Tobacco Use Types Packs/Day Years [...] Visit Diagnoses Diagnosis Type 2 diabetes mellitus with hyperglycemia, without long-term current use of insulin ([facility]) documented in this encounter Additional Health Concerns Assessment Noted Time PHQ-9 Depression Total Score: 0 05/16/19 24 9:06 AM EST documented as of this encounter Care Teams Resident Care Aid Relationship Specialty Start Date End Date Hanna Wheat MD [address] [place] [phone] PCP - General Family Medicine 10/30/18 Concetta Garcia Saw CleanerSenior Quality Assurance Analyst 11/28/22 documented as of this encounter
--- OUTSIDE RECORDS SUMMARY | 2024-05-11 09:35 | XMS_ITS | Encounter Summary ---
Author Organization [employer] Address [address] [facility] [address] [place] [address] Care Team Providers Care Rock Star Name Role Phone Hanna Wheat MD Primary Care Provide r Reason for Visit * Reason Comments Med Refill Encounter Details Date Type Department Care Team ([facility] st Contact Info) Description 12/09/2023 Refill [facility] MEDICINE [address] [place], [place] [phone] Hanna Wheat MD [address] [place], [place] [phone] Primary osteoarthritis of both knees Social History [...] documented as of this encounter Care Teams Rock Star Relationship Specialty Start Date End Date Hanna Wheat MD [address] [place] [phone] PCP - General Family Medicine 10/30/18 Concetta Garcia Slaughterer Religious RitualManager Completions 11/28/22 documented as of this encounter
--- OUTSIDE RECORDS SUMMARY | 2024-05-11 09:35 | XMS_ITS | Encounter Summary ---
Author Organization [employer] Address [address] [place] [address] [address] Care Team Providers Care Emergency Veterinarian Name Role Phone Hanna Wheat MD Primary Care Provide r Encounter Details Date Type Department Care Team (Late st Contact Info) Description 07/07/2022 Orders Only [facility] MEDICINE [address] [place] [address] Kendra Joya MD [address] [place] [address] Social History Tobacco Use Types Packs/Day Years [...] not to disclose 2021 10:16 AM EDT COVID-19 Exposure Response Date Recorded In the last 10 days, have yo u been in contact with someone who was confirmed or suspected to have Coronavirus/COVID-19? No / Unsure 07/04/2022 9:06 AM EDT documented as of this encounter Plan of Treatment Not on file documented as of this encounter Visit Diagnoses Not on filedocumented in this encounter Care Teams Emergency Veterinarian Relationship Specialty Start Date End Date Hanna Wheat MD [address] [place] [address] PCP - General Family Medicine 10/30/18 Concetta Garcia Dye Range TenderIntermodal Customer Service 11/28/22 documented as of this encounter
--- OUTSIDE RECORDS SUMMARY | 2024-05-11 09:35 | XMS_ITS | Encounter Summary ---
Author Organization [employer] Address [address] [place] [address] [address] [place] [address] Care Team Providers Care Electrician Telephone Name Role Phone Hanna Wheat MD Primary Care Provide r Reason for Visit * Reason Comments Med Refill Encounter Details Date Type Department Care Team ([facility] st Contact Info) Description 11/07/2022 Refill [facility] CHC MED & PEDS [address] [place] [address] Shukri Carney MD [address] [place] [address] Seasonal allergies; Low back pain, unspecified back [...] present documented in this encounter Care Teams Electrician Telephone Relationship Specialty Start Date End Date Hanna Wheat MD [address] [place] [address] PCP - General Family Medicine 10/30/18 Concetta Garcia Air Battle ManagerBusiness Integration Analyst 11/28/22 documented as of this encounter
--- OUTSIDE RECORDS SUMMARY | 2024-05-11 09:35 | XMS_ITS | Encounter Summary ---
Author Organization [employer] [facility] Address [address] [place] [address] [address], [place] [address] Care Team Providers Care Head Orthopedic Team Physician Name Role Phone Hanna Wheat MD Primary Care Provide r Reason for Visit * Reason Comments Med Refill Encounter Details Date Type Department Care Team ([facility] st Contact Info) Description 08/24/2022 Refill [facility] MEDICINE [address] [place], [place] [phone] Ellie Wheeler MD [address] [place], [place] [phone] Type 2 diabetes mellitus without complication, unspecified whether race car mechanic insulin use ([facility]); Dyslipidemia Social History Tobacco Use Types Packs/Day [...] 2 diabetes mellitus without complication, unspecified whether senior care insulin use ([facility]) Dyslipidemia Other and unspecified hyperlipidemia documented in this encounter Care Teams Head Orthopedic Team Physician Relationship Specialty Start Date End Date Hanna Wheat MD [address] [place] [address] PCP - General Family Medicine 10/30/18 Concetta Garcia Crop Quantitative GeneticistPowdered Sugar Pulverizer Operator 11/28/22 documented as of this encounter
--- OUTSIDE RECORDS SUMMARY | 2024-05-11 09:35 | XMS_ITS | Clinical Summary ---
Author Organization [employer] [facility] Address [address] [place] [address] Care Team Providers Care Apparel Merchandiser Name Role Phone Hanna Wheat MD Primary Care Provide r Surgical History Surgery Date Site/Laterality Comments CARDIAC CATHETERIZATION PROCEDURE: HISTORICAL CARDIAC CATH; COMMENT: Cath Jan 2014 s/p mult stents at [facility] APPENDECTOMY PROCEDURE: HISTORICAL APPENDECTOMY HERNIA REPAIR PROCEDURE: HISTORICAL HERNIA REPAIR/UMB OTHER SURGICAL HISTORY PROCEDURE: ---- OTHER ----; COMMENT: sinus surgery COLONOSCOPY 2014 PROCEDURE: HISTORICAL COLONOSCOPY; COMMENT: repeat in 5 yrs, per patient, at [place] Medical History Medical History Date Comments Atrial fibrillation (CMS/HCC) 11/27/2015 DX :Atrial fibrillation ([facility]); COMMENT: During hospital admission at [place] Nov 2015, reverted to sinus wiith meds, f/u Cardio at [place], will have 30day loop recorder, off anticoagulation per cardiology CAD (coronary artery disease) 10/27/2015 DX :CAD (coronary artery disease); COMMENT: Cath Jan 2014, s/p multiple stent at [facility], Dr Luo, Several stress tests, echos Chronic [...] DX:Mixed anxiety and depressive disorder; COMMENT: F/u [facility] Psych Peripheral vascular disease (CMS/HCC) 10/29/2016 DX:Peripheral [...] at Not on file Legal Sex Male 4:53 AM EST Gender Identity Not on file Sexual [...] 1983 Zoster Vaccines (1 of 2) 2014 Pneumococcal Vaccine: 50+ Years (3 of 3 - PCV20 or PCV21) 10/08/2021 10/08/2016, 02/11/2002 Pneumococcal Vaccine: Pediatrics (0 to 5 Years) and At-Risk Patients (6 to 64 Years) (3 of 3 - PCV20 or PCV21) 10/08/2021 10/08/2016, 02/11/2002 Cholesterol Screening (Lipid Panel) 10/07/2023 Colorectal Cancer [...] - Td or Tdap) 10/08/2026 10/08/2016, 12/14/2002 HIB Vaccines Aged Out No longer eligi [...] patient's age to complete this topic Meningococcal B Vacine Aged Out No lo nger eligible based on patient's age to complete this topic RSV Immunization Patients Under 20 months Aged Out No longer eligible b ased on patient's age to complete this topic Varicella Vaccines Aged Out No longer eligible based on patient's age to complete this topic Care Teams Apparel Merchandiser Relationship Specialty Start Date End Date Hanna Wheat MD [address] [place] [phone] PCP - General 03/20/23
--- OUTSIDE RECORDS SUMMARY | 2024-05-11 09:35 | XMS_ITS | Encounter Summary ---
Author Organization [facility] Address [address] [place] [address] 7[place] [address] Care Team Providers Care Administration Clerk Name Role Phone Hanna Wheat MD Primary Care Provide r Encounter Details Date Type Department Care Team (Late st Contact Info) Description 11/15/2022 Orders Only [facility] MEDICINE [address] [place], [place] [phone] Provider, MD Jacinto Social History Tobacco Use [...] 05/28/2020 documented in this encounter Results * Colonoscopy (05/28/2020) Historical Provider HEALTH MAINTENANCE Final Result documented in this encounter Visit Diagnoses Not on filedocumented in this encounter Care Teams Administration Clerk Relationship Specialty Start Date End Date Hanna Wheat MD [address] [place], [place] [phone] PCP - General Family Medicine 10/30/18 Concetta Garcia Public Speaking TeacherEnvironmental Field Professional 11/28/22 documented as of this encounter
--- OUTSIDE RECORDS SUMMARY | 2024-05-11 09:35 | XMS_ITS | Encounter Summary ---
Author Organization [facility] [facility] Address [address] [place] [address] [address] Care Team Providers Care Party Host Name Role Phone Hanna Wheat MD Primary Care Provide r Reason for Visit * Reason Comments Med Refill Encounter Details Date Type Department Care Team ([facility] st Contact Info) Description 11/06/2022 Refill [facility] MEDICINE [address] [place], [place] [phone] Shukri Carney MD [address] [place] [address] Social History Tobacco Use Types Packs/Day Years [...] on filedocumented in this encounter Care Teams Party Host Relationship Specialty Start Date End Date Hanna Wheat MD [address] [place], [place] [phone] PCP - General Family Medicine 10/30/18 Concetta Garcia Tile InspectorPatent Clerk 11/28/22 documented as of this encounter
--- OUTSIDE RECORDS SUMMARY | 2024-05-11 09:35 | XMS_ITS | Clinical Summary ---
Author Organization [facility] Address [address] [facility] 7t [place] [address] Care Team Providers Care Collaborative Teacher Name Role Phone Hanna Wheat MD Primary [...] IN THE MORNING AND IN THE EVENING 023 Active docusate sodium (Colace) 100 MG capsule TAKE 1 CAPSULE BY MOUTH AT BEDTIME 023 Active doxycycline (Monodox) 100 MG capsule TAKE 1 CAPSULE BY MOUTH TWICE DAILY 023 Active famotidine (Pepcid) 20 MG tablet TAKE 1 TABLET BY MOUTH TWICE DAILY IN THE MORNING AND IN THE EVENING 022 Active TRUEplus Lancets 33G misc TEST BLOOD SUGAR TWICE DAILY 023 Active Lidoderm 5 % patch APPLY 1-2 PATCHES TOPICALLY TO AFFECTED AREA(S) EVERY DAY NEEDED FOR PAIN. REMOVE AFTER 12 hours. 022 Active nitroglycerin (Nitrostat) 0.[address] 1 TABLET UNDER THE TONGUE NEEDED FOR CHEST PAIN - MAY REPEAT IN 5 MINUTES TWICE. IF NO RELIEF CALL 911 OR GO TO EMERGENCY ROOM. Active Wheat Dextrin (benefiber drink mix) packet MIX 1 PACKET IN 4 OUNCES IN WATER OR JUICE AND DRINK DAILY DIRECTED Active colchicine 0.6 MG tabletIndications :Low back pain, unspecified back pain laterality, unspecified chronicity, unspecified whether sciatica present take one daily 30 tablet 024 Active methocarbamol (Robaxin) 750 MG tabletIndications :Muscle spasm Take 1 tablet (750 mg) by mouth 4 times daily for 10 days. 40 tablet Active Trulicity 3 MG/0.5ML solution pen-injector INJECT ONE PEN (= 3MG) SUBCUTANEOUSLY ONCE A WEEK DIRECTED 2 mL 3 Active Blood Glucose Monitoring Suppl (NutrisystemStyle Lite) deviceIndications :Type 2 diabetes mellitus without complication, without long-term current use of insulin ([facility]) Inject 1 each under the skin 2 times daily. Test 1 time by intradermal route 2 times everyday. 1 each Active azithromycin (Zithromax) 250 MG tablet Take 2 tablets PO on day one then take 1 tablet PO daily for the next 4 days 6 tablet Active guaiFENesin (Mucinex) 600 MG 12 hr tablet Take 2 tablets (1,200 mg) by mouth if needed in the morning and at bedtime for cough or congestion. Do not crush, chew, or split. 30 tablet 024 2024 Active cetirizine (ZyrTEC) 10 MG tablet Take 1 tablet (10 mg) by mouth Once per day. 90 tablet 3 024 2024 Active cholecalciferol (D3 Super Strength) 50 MCG (1999 UT) capsuleIndication s:Low back pain, unspecified back pain laterality, unspecified chronicity, unspecified whether sciatica present TAKE 1 CAPSULE BY MOUTH EVERY MORNING 90 capsule 1 Active diclofenac sodium 3 % gelIndications:Pr imary osteoarthritis of both knees APPLY 2 GRAMS TOPICALLY TWICE DAILY 100 g 1 024 Active tamsulosin (Flomax) 0.4 MG 24 hr capsule TAKE 1 CAPSULE BY MOUTH EVERY MORNING 90 capsule 1 024 Active amLODIPine (Norvasc) 10 MG tabletIndications :Primary hypertension TAKE 1 TABLET BY MOUTH EVERYDAY AT NOON 90 tablet 1 024 Active metFORMIN (Glucophage) 500 MG tabletIndications :Type 2 diabetes mellitus without complication, unspecified whether usp insulin use (CMS/HCC) TAKE 1 TABLET BY MOUTH TWICE DAILY IN THE MORNING AND IN THE EVENING 180 tablet 1 Active metoprolol tartrate (Lopressor) 50 MG tabletIndications :Atherosclerosis of coronary artery of [place] heart with stable angina pectoris, unspecified vessel or lesion type (CMS/HCC) TAKE 1 AND 1/2 TABLETS BY MOUTH TWICE DAILY IN THE MORNING AND IN THE EVENING 270 tablet 1 Active glipiZIDE XL (Glucotrol XL) 10 MG 24 hr tabletIndications :Type 2 diabetes mellitus without complication, unspecified whether usp insulin use (CMS/HCC) TAKE 1 TABLET BY MOUTH TWICE DAILY IN THE MORNING AND IN THE EVENING WITH MEALS 180 tablet 1 Active fenofibrate (Triglide) 160 MG tabletIndications :Dyslipidemia TAKE 1 TABLET BY MOUTH EVERY EVENING (for cholesterol) 90 tablet 1 024 Active niacin (Niaspan) 500 MG ER tabletIndications :Mixed hyperlipidemia TAKE 1 TABLET BY MOUTH AT BEDTIME 90 tablet 1 024 Active atorvastatin (Lipitor) 80 MG tabletIndications :Mixed hyperlipidemia TAKE 1 TABLET BY MOUTH AT BEDTIME 90 tablet 1 024 Active aspirin (Aspirin Low Dose) 81 MG EC tablet TAKE 1 TABLET BY MOUTH EVERY MORNING 90 tablet 1 024 Active losartan (Cozaar) 100 MG tabletIndications :Primary hypertension,Type 2 diabetes mellitus with hyperglycemia, without long-term current use of insulin (CMS/HCC) TAKE 1 TABLET BY MOUTH EVERY MORNING 90 tablet 1 024 Active fluticasone furoate (Arnuity Ellipta) 100 MCG/ACT inhaler INHALE 1 PUFF BY MOUTH EVERY DAY AT THE SAME TIME RINSE MOUTH AFTER USING. 30 each 3 024 Active esomeprazole (NexIUM) [address] capsule TAKE 1 CAPSULE BY MOUTH EVERY MORNING AT 630 024 Active allopurinol (Zyloprim) 100 MG tablet Take 100 mg by mouth in the morning. Active Linzess 145 MCG capsule Take 1 capsule by mouth Once per day. Active isosorbide mononitrate ER (Imdur) 30 MG 24 hr tablet Take 30 mg by mouth at bedtime. Active FREESTYLE LITE test stripIndications: Type 2 diabetes mellitus with hyperglycemia, without long-term current use of insulin ([facility]) USE DIRECTED TO TEST BLOOD SUGAR TWICE DAILY 50 strip 11 Active empagliflozin (Jardiance) 10 MGIndications:Typ e 2 diabetes mellitus with hyperglycemia, without long-term current use of insulin ([facility]) TAKE 1 TABLET BY MOUTH EVERY MORNING 90 tablet 1 Active acetaminophen (Tylenol 8 Hour) 650 MG ER tabletIndications :Primary osteoarthritis of both knees TAKE 2 TABLETS BY MOUTH EVERY 8 HOURS NEEDED FOR MILD PAIN 40 tablet 1 Active FREESTYLE LITE test stripIndications: Type 2 diabetes mellitus with hyperglycemia, without long-term current use of insulin ([facility]) USE DIRECTED TO TEST BLOOD SUGAR TWICE DAILY 50 strip 11 024 2024 Discontinued empagliflozin (Jardiance) 10 MGIndications:Typ e 2 diabetes mellitus with hyperglycemia, without long-term current use of insulin ([facility]) TAKE 1 TABLET BY MOUTH EVERY MORNING 30 tablet 5 024 2024 Discontinued acetaminophen (Tylenol 8 Hour) 650 MG ER tabletIndications :Primary osteoarthritis of both knees TAKE 2 TABLETS BY MOUTH EVERY 8 HOURS NEEDED FOR MILD PAIN, DO NOT BREAK, CRUSH, DISSOLVE OR CHEW 40 tablet 1 024 2024 Discontinued Active Problems Problem Noted Date Diagnosed Date [...] Cath Jan 2014, s/p multiple stent at [facility], Dr Luo, Several stress tests, echos Complicated migraine 12/04/2011 [...] Encounters Date Type Department Care Team Description 05/04/2024 Refill [facility] MEDICINE [address] [place] [address] Hanna Wheat MD Primary osteoarthritis of both knees 04/28/2024 11:00 AM EST Office Visit [facility] OPTOMETRY [address] [place] [address] AbdielGeovany mendosan, OD Presbyopia of both eyes (Primary Dx) 04/28/2024 Travel 04/28/2024 Refill [facility] [address] [place], [place] [phone] Hanna Wheat MD Type 2 diabetes mellitus with hyperglycemia, without long-term current use of insulin ([facility]) 04/23/2024 Refill [facility] MEDICINE [address] [place] [address] Hanna Wheat MD Type 2 diabetes mellitus with hyperglycemia, without long-term current use of insulin ([facility]) 03/19/2024 9:30 AM EST Office Visit [facility] OPTOM[facility] [address] [place] [address] Geovany Meadowsn, OD Diabetes type 2, no ocular involvement ([facility]) (Primary Dx); Dry eyes; White without pressure of peripheral retina of both eyes; Early cataracts, bilateral; Presbyopia of both eyes 03/19/2024 Travel 03/05/2024 Refill [facility] [address] [place], [place] [phone] Hanna Wheat MD 02/25/2024 Refill [facility] MED[facility]INE [address] [place] [address] Kendra Joay MD Primary hypertension; Type 2 diabetes mellitus with hyperglycemia, without long-term current use of insulin ([facility]) 02/25/2024 Refill [facility] MEDICINE [address] [place] [address] Hanna Wheat MD Primary hypertension; Type 2 diabetes mellitus without complication, unspecified whether data communications analyst insulin use ([facility]); Atherosclerosis of coronary artery of [place] heart with stable angina pectoris, unspecified vessel or lesion type ([facility]); Dyslipidemia; Mixed hyperlipidemia; Type 2 diabetes mellitus with hyperglycemia, without long-term current use of insulin ([facility]) 02/16/2024 Refill [facility] MED[facility] [address] [place] [address] Hanna Wheat MD Primary osteoarthritis of both [...] not to disclose 2021 10:16 AM EDT Last Filed Vital Signs Vital Sign Reading [...] 2-dose series) 1983 Lipid Panel 08/02/2021 08/02/2020 Pneumococcal Vaccine: 50+ Years (3 of 3 - PCV20 or PCV21) 10/21/2021 10/21/2016, 10/08/2016, 02/11/2002 Diabetes: Urine Protein Screening 02/05/2022 02/05/2021 Colonoscopy 05/29/2023 05/28/2020 Colorectal Cancer Screening 05/29/2023 Diabetes: Hemoglobin A1C 12/13/2023 024, 05/16/2023, 01/07/2023, Additional history exists RSV Patients and Patients Aged 60 years or older (1 - Risk 60-74 years 1-dose series) 2024 Depression Screening 05/15/2024 05/16/2023, 05/16/19 24 SDOH Screening 09/01/2024 09/02/2023 Tobacco Screening 04/02/2025 04/02/2024 Eye Exam 03/19/2026 03/19/2024, 03/10, 03/19/2024, Additional history exists DTaP/Tdap/Td Vaccines (3 - Td or Tdap) 08/19/2028 08/19/2018, 10/08/2016, 08/16/2011, Additional history exists Hepatitis B Vaccines Completed 08/14/2022, 05/29/19 23 Zoster Vaccines Completed 08/14/2022, 05/28/2022 COVID-19 Vaccine [...] hyperglycemia, without long-term current use of insulin ([facility]) ALBUMIN, RANDOM URINE W/CREATININE Routine 02/05/2021 2:07 PM EST LIPID PANEL, STANDARD Routine 08/02/2020 8:24 AM EDT HM COLONOSCOPY Routine 05/28/2020 from Last 3 Months or Most Recently Relevant to Health Maintenance Results * (ABNORMAL) POCT HGB A1C (09/12/2023 9:34 AM EDT) Hemoglobin A1C 6.4(A) 4.0 - 6.0 % QC Media Lot # [id number] Lot# Expiration Date [id number] Blood 09/12/2023 9:3 4 AM EDT Hanna Kimball MD POINT OF [...] [facility] 02/05/2021 2:07 PM EST Hanna Kimball MD LAB URINE ORDERABLES Final Result [facility] [address] * (ABNORMAL) LIPID PANEL, STANDARD (08/02/2020 [...] ?? LDL-C is now calculated using the Mauro-Gutierrez ?? calculation, which is a validated novel method providing ?? better accuracy than the Friedewald equation in the ?? estimation of LDL-C. ?? Mauro SS et al. LENA. 2013;310(19): 8470-5636 ?? (http://education.World Vital Records/faq/VPX648) Non-HDL Cholesterol 203(H) <130 mg/dL (calc) [facility] [...] Kimball MD LAB BLOOD ORDERABLES Final Result [facility] [address] * Colonoscopy (05/28/2020) Historical Provider HEALTH MAINTENANCE Final Result from Last 3 Months or Most Recently Relevant to Health Maintenance Insurance [employer] Care Teams Collaborative Teacher Relationship Specialty Start Date End Date Hanna Wheat MD [address] [place] [id number] PCP - General Family Medicine 10/30/18 Concetta Garcia Engineer ByproductGeneral Assembler 11/28/22
--- OUTSIDE RECORDS SUMMARY | 2024-05-11 09:35 | XMS_ITS | Encounter Summary ---
Author Organization [email or web address] Address [address] [facility] [address] [place] [address] Care Team Providers Care Procurement Director Name Role Phone Hanna Wheat MD Primary Care Provide r Reason for Visit * Reason Comments Med Refill Encounter Details Date Type Department Care Team ([facility] st Contact Info) Description 04/23/2024 Refill [facility] MEDICINE [address] [place], [place] [phone] Hanna Wheat MD [address] [place], [place] [phone] Type 2 diabetes mellitus with hyperglycemia, without long-term current use of insulin ([facility]) Social History Tobacco Use Types Packs/Day Years [...] hyperglycemia, without long-term current use of insulin ([facility]) documented in this encounter Additional Health Concerns Assessment Noted Time PHQ-9 Depression Total Score: 0 05/16/19 24 9:06 AM EST documented as of this encounter Care Teams Procurement Director Relationship Specialty Start Date End Date Hanna Wheat MD [address] [place] [phone] PCP - General Family Medicine 10/30/18 Concetta Garcia Cooler ManNight Time Nanny 11/28/22 documented as of this encounter
--- OUTSIDE RECORDS SUMMARY | 2024-05-11 09:35 | XMS_ITS | Encounter Summary ---
Author Organization [employer] [facility] Address [address] [place] [address] [address] [place] [address] Care Team Providers Care Health Services Manager Name Role Phone Hanna Wheat MD Primary Care Provide r Reason for Visit * Reason Comments Med Refill Encounter Details Date Type Department Care Team ([facility] st Contact Info) Description 08/24/2022 Refill [facility] MEDICINE [address] [place], [place] [phone] Kendra Joya MD [address] [place], [place] [phone] Atherosclerosis of coronary artery of [place] heart with stable angina pectoris, unspecified vessel [...] Diagnoses Diagnosis Atherosclerosis of coronary artery of [place] heart with stable angina pectoris, unspecified vessel or lesion type (CMS/HCC) documented in this encounter Care Teams Health Services Manager Relationship Specialty Start Date End Date Hanna Wheat MD [address] [place] [address] PCP - General Family Medicine 10/30/18 Concetta Garcia Engineering TechProject Facilitator 11/28/22 documented as of this encounter
--- OUTSIDE RECORDS SUMMARY | 2024-05-11 09:35 | XMS_ITS | Encounter Summary ---
Author Organization [employer] Address [address] [facility] [address] [place] [address] Care Team Providers Care Cosmetic Consultant Name Role Phone Hanna Wheat MD Primary Care Provide r Encounter Details Date Type Department Care Team (Latest Contact Info) Description 04/28/2024 Travel Social History Tobacco Use Types Packs/Day [...] documented as of this encounter Care Teams Cosmetic Consultant Relationship Specialty Start Date End Date Hanna Wheat MD [address] [place] [address] PCP - General Family Medicine 10/30/18 Concetta Garcia Word Processing SpecialistHedis Coordinator 11/28/22 documented as of this encounter
== END 2024-05-11 09:45 | disposition home or self-care (01) ==
PROVIDERS: PCP Emergency Medicine; Visit Provider Student in an Organized Health Care Education/Training Program
DX: M17.0 Bilateral primary osteoarthritis of knee (principal); G56.03 Carpal tunnel syndrome, bilateral upper limbs
CPT/HCPCS: 99214

== ENCOUNTER → 2024-05-11 08:52 | Outpatient (BNVA) | payer MEDICAID, SELFPAY | PROVIDERS: PCP Emergency Medicine; Visit Provider Student in an Organized Health Care Education/Training Program | DX: M17.0 Bilateral primary osteoarthritis of knee (principal); M15.0 Primary generalized (osteo)arthritis; G56.03 Carpal tunnel syndrome, bilateral upper limbs | CPT/HCPCS: 99212 ==

== ENCOUNTER 2024-05-21 09:45 | Outpatient (REF) | payer MEDICAID, SELFPAY ==
--- NOTE | ~2024-05-21 | XR_ITS ---
CLINICAL HISTORY: M17.0 - Bilateral primary osteoarthritis of knee 3 view Right knee Comparison: None Findings: Bones intact. No dislocations. Tricompartmental periarticular osteophyte formation, indicating osteoarthritis. No joint effusion. No radiopaque foreign body. IMPRESSION: 1. No acute findings. This document has been electronically signed by: Aditya Tejada MD on 05/21/2024 16:25:28
--- NOTE | ~2024-05-21 | XR_ITS ---
CLINICAL HISTORY: M17.0 - Bilateral primary osteoarthritis of knee 3 view bilateral knee 3 view Left knee Comparison: CR - KNEE LEFT 4 VIEWS [id number] - 06/24/15 10:31 EDT Findings: Bones intact. No dislocations. Tricompartmental periarticular osteophyte formation, indicating osteoarthritis. No joint effusion. No radiopaque foreign body. IMPRESSION: 1. No acute findings. This document has been electronically signed by: Aditya Tejada MD on 05/21/2024 16:27:10
--- OUTSIDE RECORDS SUMMARY | 2024-05-21 10:49 | XMS_ITS | Encounter Summary ---
Author Organization [employer] Address [address] [place] [address] [address] [place] [address] Care Team Providers Care Roving Teller Name Role Phone Hanna Wheat MD Primary Care Provide r Reason for Visit * Reason Comments Med Refill Encounter Details Date Type Department Care Team ([facility] st Contact Info) Description 11/07/2022 Refill [facility] [address] [place] [address] Shukri Carney MD [address] [place] [address] Seasonal allergies; Low back pain, unspecified back [...] present documented in this encounter Care Teams Roving Teller Relationship Specialty Start Date End Date Hanna Wheat MD [address] [place] [address] PCP - General Family Medicine 10/30/18 Concetta Garcia Actimize ArchitectCarpet Yarn Winder Operator 11/28/22 Concetta Garcia Actimize ArchitectCarpet Yarn Winder Operator 05/13/24 documented as of this encounter
--- OUTSIDE RECORDS SUMMARY | 2024-05-21 10:49 | XMS_ITS | Clinical Summary ---
Author Organization [employer] [facility] Address [address] [facility] 7t [place] [address] Care Team Providers Care Family Services Manager Name Role Phone Hanna Wheat [...] mL 3 Active Blood Glucose Monitoring Suppl (AirtimeStyle Lite) deviceIndications :Type 2 diabetes mellitus without complication, without long-term current use of insulin ([facility]) Inject 1 each under the [...] 2 diabetes mellitus without complication, unspecified whether keno terminal operator insulin use (CMS/HCC) TAKE 1 TABLET BY MOUTH TWICE DAILY IN THE MORNING AND IN THE EVENING 180 tablet 1 Active metoprolol tartrate (Lopressor) 50 MG tabletIndications :Atherosclerosis of coronary artery of little river heart with stable angina pectoris, unspecified vessel or lesion type (CMS/HCC) TAKE 1 AND 1/2 TABLETS BY MOUTH TWICE DAILY IN THE MORNING AND IN THE EVENING 270 tablet 1 Active glipiZIDE XL (Glucotrol XL) 10 MG 24 hr tabletIndications :Type 2 diabetes mellitus without complication, unspecified whether skilled nursing insulin use (CMS/HCC) TAKE 1 TABLET BY [...] hyperglycemia, without long-term current use of insulin ([facility]) USE DIRECTED TO TEST BLOOD SUGAR TWICE DAILY 50 strip 11 Active empagliflozin (Jardiance) 10 MGIndications:Typ e 2 diabetes mellitus with hyperglycemia, without long-term current use of insulin ([facility]) TAKE 1 TABLET BY MOUTH EVERY MORNING 90 tablet 1 Active acetaminophen (Tylenol 8 Hour) 650 MG ER tabletIndications :Primary osteoarthritis of both knees TAKE 2 TABLETS BY MOUTH EVERY 8 HOURS NEEDED FOR MILD PAIN 40 tablet 1 Active FREESTYLE LITE test stripIndications: Type 2 diabetes mellitus with hyperglycemia, without long-term current use of insulin ([facility]) USE DIRECTED TO TEST BLOOD SUGAR TWICE DAILY 50 strip 11 024 2024 Discontinued empagliflozin (Jardiance) 10 MGIndications:Typ e 2 diabetes mellitus with hyperglycemia, without long-term current use of insulin ([facility]) TAKE 1 TABLET BY MOUTH [...] Cath Jan 2014, s/p multiple stent at [facility], Dr Luo, Several stress tests, echos Complicated [...] Encounters Date Type Department Care Team Description 05/21/2024 Population Health Risk Score [facility] (C3) Department [address] [phone] Provider, Population Health Generic 05/13/2024 Patient Outreach [facility] MEDICINE [address] [place] [address] Hanna Wheat MD Care Coordination (ICP Care Plan) 05/04/2024 Refill [facility] MEDICINE [address] [place] [address] Hanna Wheat MD Primary osteoarthritis of both knees 04/28/2024 11:00 AM EST Office Visit [facility] OPTOMETRY [address] [place] [address] Aye Meadows, OD Presbyopia of both eyes (Primary Dx) 04/28/2024 Travel 04/28/2024 Refill [facility] MED & PEDS [address] [place], [place] [phone] Hanna Wheat MD Type 2 diabetes mellitus with hyperglycemia, without long-term current use of insulin ([facility]) 04/23/2024 Refill [facility] MEDICINE [address] [place] [address] Hanna Wheat MD Type 2 diabetes mellitus with hyperglycemia, without long-term current use of insulin ([facility]) 03/19/2024 9:30 AM EST Office Visit [facility] OPTOMETRY [address] [place], [place] [phone] Geovany Meadowsn, OD Diabetes type 2, no ocular involvement ([facility]) (Primary Dx); Dry eyes; White without pressure of peripheral retina of both eyes; Early cataracts, bilateral; Presbyopia of both eyes 03/19/2024 Travel 03/05/2024 Refill [facility] MED & PEDS [address] [place] [address] Hanan Wheat MD 02/25/2024 Refill [facility] MEDICINE [address] [place] [address] Kendra Joya MD Primary hypertension; Type 2 diabetes mellitus with hyperglycemia, without long-term current use of insulin ([facility]/HCC) 02/25/2024 Refill [facility] MEDICINE [address] [place] [address] Hanna Wheat MD Primary hypertension; Type 2 diabetes mellitus without complication, unspecified whether keno terminal operator insulin use (CMS/HCC); Atherosclerosis of coronary artery of little river heart with stable angina pectoris, unspecified vessel or lesion type (CMS/[facility]); Dyslipidemia; Mixed hyperlipidemia; Type 2 diabetes mellitus with hyperglycemia, without long-term current use of insulin ([facility]) from Last 3 Months Immunizations Name Administration [...] 1-dose series) 2024 Diabetes: Hemoglobin A1C 03/14/2024 07 024, 05/16/2023, 01/07/2023, Additional history exists Depression Screening 05/15/2024 05/16/2023, 05/16/19 SDOH Screening 09/01/2024 09/02/2023 Tobacco Screening 04/02/2025 [...] hyperglycemia, without long-term current use of insulin ([facility]) ALBUMIN, RANDOM URINE W/CREATININE Routine 02/05/2021 2:07 PM EST LIPID PANEL, STANDARD Routine 08/02/2020 8:24 AM EDT HM COLONOSCOPY Routine 05/28/2020 from Last 3 Months or Most Recently Relevant to Health Maintenance Results * (ABNORMAL) POCT HGB A1C (09/12/2023 9:34 AM EDT) Hemoglobin A1C 6.4(A) 4.0 - 6.0 % QC Media Lot # [id number] Lot# Expiration Date ,[id number] Blood 09/12/2023 9:34 AM EDT Hanna Kimball MD POINT OF CARE TEST EN TER/EDIT ORDERABLES Final Result * ALBUMIN, RANDOM URINE W/CREATININE (02/05/2021 2:07 PM EST) Pathologist [facility] Microalbumin Urine 3.7 See Note: mg/dL [facility]ATION [...] [facility] [address] * (ABNORMAL) LIPID PANEL, STANDARD (08/02/2020 [...] ?? Mauro BONILLA et al. LENA. 2013;310(19): 5164-1335 ?? (http://education.Whittl/faq/AYA350) Non-HDL Cholesterol 203(H) <130 mg/dL (calc) [facility] [...] if > or = 1000 mg/dL). ?? Pickett et al. J. of Clin. Lipidol. 2015;9:129-169. ?? 08/02/2020 8:24 AM EDT us Hanna Kimball MD LAB BLOOD ORDERABLES Final Result [facility] [address] * Hm Colonoscopy (05/28/2020) Historical Provider HEALTH MAINTENANCE Final Result from Last 3 Months or Most Recently Relevant to Health Maintenance Insurance Project Travel C3 Care Teams Family Services Manager Relationship Specialty Start Date End Date Hanna Wheat MD [address] [place] [address] PCP - General Family Medicine 10/30/18 Concetta Garcia Fur MatcherJar Capper 11/28/22 Concetta Garcia Fur MatcherJar Capper 05/13/24
--- OUTSIDE RECORDS SUMMARY | 2024-05-21 10:49 | XMS_ITS | Encounter Summary ---
Author Organization [employer] Address [address] [facility] 7 [place] [address] Care Team Providers Care Mechanical Service Representative Name Role Phone Hanna Wheat MD Primary Care Provide r Reason for Visit * Reason Comments Med Refill Encounter Details Date Type Department Care Team ([facility] st Contact Info) Description 05/04/2024 Refill [facility] MEDICINE [address] [place], [place] [phone] Hanna Wheat MD [address] [place], [place] [phone] Primary osteoarthritis of both knees Social History [...] documented as of this encounter Care Teams Mechanical Service Representative Relationship Specialty Start Date End Date Hanna Wheat MD [address] [place] [phone] PCP - General Family Medicine 10/30/18 Concetta Garcia Die Casting Machine SetterFiber Product Cutting Machine Operator 11/28/22 documented as of this encounter
--- OUTSIDE RECORDS SUMMARY | 2024-05-21 10:49 | XMS_ITS | Encounter Summary ---
Author Organization [employer] Address [address] [facility] 7 [place] [address] Care Team Providers Care Motor Pool Driver Name Role Phone Hanna Wheat MD Primary Care Provide r Encounter Details Date Type Department Care Team (Late st Contact Info) Description 04/28/2024 11:00 AM EST Office Visit [facility] OPTOMETRY [address] [place] [address] Abdiel, Aye, OD [address] [place] [address] Presbyopia of both eyes (Primary Dx) Social [...] documented as of this encounter Care Teams Motor Pool Driver Relationship Specialty Start Date End Date Hanna Wheat MD [address] [place] [phone] PCP - General Family Medicine 10/30/18 Concetta Garcia Tugboat PilotSandwich Machine Operator 11/28/22 documented as of this encounter
--- OUTSIDE RECORDS SUMMARY | 2024-05-21 10:49 | XMS_ITS | Clinical Summary ---
Author Organization [facility] Address [address] [place] [address] [place] [phone] Phone Care Team Providers Care Rn Patient Services Name Role Phone Unavailable Primary Care Provider [...] Quadrivalent, With Preservative 11/29 Influenza, Unspecified 11/27/2015,12/20/2013, CrossCurrent SARS-COV-2 05/31/2020 Pfizer SARS-COV-2 12/18/2021,06/21/2021 Pneumococcal Conjugate [...] PCV20) 2029 10/21/2016, 10/08/2016, 02/11/2002 Insurance [place]ICAID [place]
--- OUTSIDE RECORDS SUMMARY | 2024-05-21 10:49 | XMS_ITS | Encounter Summary ---
Author Organization [employer] [facility] Address [address] [place] [address] 7 [place] [address] Care Team Providers Care Turf Sales Person Name Role Phone Hanna Wheat MD Primary [...] on filedocumented in this encounter Care Teams Turf Sales Person Relationship Specialty Start Date End Date Hanna Wheat MD [address] [place] [phone] PCP - General Family Medicine 10/30/18 Concetta Garcia Foreclosure ClerkInformation Resources Manager 11/28/22 Concetta Garcia Foreclosure ClerkInformation Resources Manager 05/13/24 documented as of this encounter
--- OUTSIDE RECORDS SUMMARY | 2024-05-21 10:49 | XMS_ITS | Encounter Summary ---
Author Organization [employer] [facility] Address [address] [place] [address] [address] [address] Care Team Providers Care Asphalt Plant Operator Name Role Phone Hanna Wheat MD Primary Care Provide r Reason for Visit * Reason Comments Med Refill Encounter Details Date Type Department Care Team ([facility] st Contact Info) Description 11/06/2022 Refill [facility] MEDICINE 230 [place], [place] [phone] Shukri Carney MD [address] [place] [address] Social History Tobacco Use Types Packs/Day Years [...] on filedocumented in this encounter Care Teams Asphalt Plant Operator Relationship Specialty Start Date End Date Hanna Wheat MD [address] [place], [place] [phone] PCP - General Family Medicine 10/30/18 Concetta Garcia Pricing SpecialistComputer Systems Support Specialist 11/28/22 Concetta Garcia Pricing SpecialistComputer Systems Support Specialist 05/13/24 documented as of this encounter
--- OUTSIDE RECORDS SUMMARY | 2024-05-21 10:49 | XMS_ITS | Encounter Summary ---
Author Organization [employer] Address [address] [facility] [address] 7[address] [place] [address] Care Team Providers Care Senior Planning Manager Name Role Phone Hanna Wheat MD [...] documented as of this encounter Care Teams Senior Planning Manager Relationship Specialty Start Date End Date Hanna Wheat MD [address] [place] [address] PCP - General Family Medicine 10/30/18 Concetta Garcia Supervisor Roller PrintingPaper Machine Back Tender 11/28/22 documented as of this encounter
--- OUTSIDE RECORDS SUMMARY | 2024-05-21 10:49 | XMS_ITS | Encounter Summary ---
Author Organization [employer] Address [address] [place] [address] [address] [address] Care Team Providers Care Exhibitions And Collections Manager Name Role Phone Hanna Wheat MD Primary Care Provide r Encounter Details Date Type Department Care Team (Late st Contact Info) Description 07/07/2022 Orders Only [facility] MEDICINE [address] [place] [address] Kendra Joya MD [address] [place] [address] Social History Tobacco Use Types Packs/Day Years [...] on filedocumented in this encounter Care Teams Exhibitions And Collections Manager Relationship Specialty Start Date End Date Hanna Wheat MD [address] [place] [address] PCP - General Family Medicine 10/30/18 Concetta Garcia Brim BusterAssociate Property Manager 11/28/22 Concetta Garcia Brim BusterAssociate Property Manager 05/13/24 documented as of this encounter
--- OUTSIDE RECORDS SUMMARY | 2024-05-21 10:49 | XMS_ITS | Encounter Summary ---
Author Organization [employer] Address [address] [facility] 7t [place] [address] Care Team Providers Care Claim Examiner Name Role Phone Hanna Wheat MD Primary Care Provide r Reason for Visit * Reason Comments Med Refill Encounter Details Date Type Department Care Team ([facility] st Contact Info) Description 04/28/2024 Refill [facility] MED & PEDS [address] [place], [place] [phone] Hanna Wheat MD [address] [place] [address] Type 2 diabetes mellitus with hyperglycemia, without long-term current use of insulin ([facility]) Social History Tobacco Use Types Packs/Day Years [...] hyperglycemia, without long-term current use of insulin ([facility]) documented in this encounter Additional Health Concerns Assessment Noted Time PHQ-9 Depression Total Score: 0 05/16/19 24 9:06 AM EST documented as of this encounter Care Teams Claim Examiner Relationship Specialty Start Date End Date Hanna Wheat MD [address] [place] [phone] PCP - General Family Medicine 10/30/18 Concetta Garcia Theater Set Production DesignerCashier Gambling 11/28/22 documented as of this encounter
--- OUTSIDE RECORDS SUMMARY | 2024-05-21 10:49 | XMS_ITS | Encounter Summary ---
Author Organization [employer] Address [address] [facility] 7 [place] [address] Care Team Providers Care Health Coach Name Role Phone Hanna Wheat MD Primary Care Provide r Reason for Visit * Reason Comments Care Coordination ICP Care Plan Encounter Details Date Type Department Care Team (Latest Contact Info) Description 05/13/2024 Patient Outreach [facility] MEDICINE [address] [place], [place] [phone] Hanna Wheat MD [address] [place], [place] [phone] Care Coordination (ICP Care Plan) Social History Tobacco Use Types Packs/Day Years [...] as of this encounter Progress Notes * Magaly Wang - 05/13/2024 3:17 PM EST PCP Designee has received and reviewed Care Plan from [facility]: Developer Support Engineer: Concetta Garcia Contact Information: [phone] Care Plan scanned into patient's EHR and notification sent to PCP. documented in this encounter Plan of Treatment Not on file documented as of this encounter Visit Diagnoses Not on filedocumented in this encounter Additional Health Concerns Assessment Noted Time PHQ-9 Depression Total Score: 0 05/16/19 24 9:06 AM EST documented as of this encounter Care Teams Health Coach Relationship Specialty Start Date End Date Hanna Wheat MD [address] [place] [address] PCP - General Family Medicine 10/30/18 Concetta Garcia Grid TrimmerCar Rental Clerk 11/28/22 Concetta Garcia Grid TrimmerCar Rental Clerk 05/13/24 documented as of this encounter
--- OUTSIDE RECORDS SUMMARY | 2024-05-21 10:49 | XMS_ITS | Encounter Summary ---
Author Organization [employer] [facility] Address [address] [facility] 7[address] [place] [address] Care Team Providers Care Bowling Teacher Name Role Phone Hanna Wheat MD Primary Care Provide r Encounter Details Date Type Department Care Team (Late st Contact Info) Description 05/21/2024 Population Health Risk Score [facility] (C3) Department [address] [phone] Provider, Population Health Generic Social History Tobacco Use Types Packs/Day Years [...] documented as of this encounter Care Teams Bowling Teacher Relationship Specialty Start Date End Date Hanna Wheat MD [address] [place] [phone] PCP - General Family Medicine 10/30/18 Concetta Garcia Welcome Wagon HostessGeodetic Survey Director 11/28/22 Concetta Garcia Welcome Wagon HostessGeodetic Survey Director 05/13/24 documented as of this encounter
--- OUTSIDE RECORDS SUMMARY | 2024-05-21 10:49 | XMS_ITS | Encounter Summary ---
Author Organization [employer] Address [address] [facility] 7 [place] [address] Care Team Providers Care Garnisher Name Role Phone Hanna Wheat MD Primary Care Provide r Reason for Visit * Reason Comments Med Refill Encounter Details Date Type Department Care Team ([facility] st Contact Info) Description 04/23/2024 Refill [facility] MEDICINE [address] [place], [place] [phone] Hanna Wheat MD 230 [place], [place] [phone] Type 2 diabetes mellitus with hyperglycemia, without long-term current use of insulin ([facility]) Social History Tobacco Use Types Packs/Day [...] hyperglycemia, without long-term current use of insulin ([facility]) documented in this encounter Additional Health Concerns Assessment Noted Time PHQ-9 Depression Total Score: 0 05/16/19 24 9:06 AM EST documented as of this encounter Care Teams Garnisher Relationship Specialty Start Date End Date Hanna Wheat MD [address] [place] [address] PCP - General Family Medicine 10/30/18 Concetta Garcia DinkerTank Farm Gauger 11/28/22 documented as of this encounter
--- OUTSIDE RECORDS SUMMARY | 2024-05-21 10:49 | XMS_ITS | Encounter Summary ---
Author Organization [employer] Address [address] [facility] 7 [place] [address] Care Team Providers Care Bond Underwriter Name Role Phone Hanna Wheat MD Primary Care Provide r Reason for Visit * Reason Comments Med Refill Encounter Details Date Type Department Care Team ([facility] st Contact Info) Description 12/09/2023 Refill [facility] MEDICINE 230 [place], [place] [phone] Hanna Wheat MD 230 [place], [place] [phone] Primary osteoarthritis of both knees Social History [...] documented as of this encounter Care Teams Bond Underwriter Relationship Specialty Start Date End Date Hanna Wheat MD [address] [place] [address] PCP - General Family Medicine 10/30/18 Concetta Garcia Pharmacy General ManagerParachute Crown Sewer 11/28/22 Concetta Garcia Pharmacy General ManagerParachute Crown Sewer 05/13/24 documented as of this encounter
--- OUTSIDE RECORDS SUMMARY | 2024-05-21 10:49 | XMS_ITS | Clinical Summary ---
Author Organization [employer] [facility] Address [address] [place] [address] Care Team Providers Care Hospice Volunteer Coordinator Name Role Phone Hanna Wheat MD Primary Care Provide r Surgical History Surgery Date Site/Laterality Comments CARDIAC CATHETERIZATION PROCEDURE: HISTORICAL CARDIAC CATH; COMMENT: Cath Jan 2014 s/p mult stents at [facility] APPENDECTOMY PROCEDURE: HISTORICAL APPENDECTOMY HERNIA REPAIR PROCEDURE: HISTORICAL HERNIA REPAIR/UMB OTHER SURGICAL HISTORY PROCEDURE: ---- OTHER ----; COMMENT: sinus surgery COLONOSCOPY 2014 PROCEDURE: HISTORICAL COLONOSCOPY; COMMENT: repeat in 5 yrs, per patient, at [facility] Medical History Medical History Date Comments Atrial fibrillation (CMS/HCC) 11/27/2015 DX :Atrial fibrillation ([facility]); COMMENT: During hospital admission at [facility] Nov 2015, reverted to sinus wiith meds, f/u Cardio at [place], will have 30day loop recorder, off anticoagulation per cardiology CAD (coronary artery disease) 10/27/2015 DX :CAD (coronary artery disease); COMMENT: Cath Jan 2014, s/p multiple stent at [facility], Dr Luo, Several stress tests, echos [...] DX:Mixed anxiety and depressive disorder; COMMENT: F/u [facility] Psych Peripheral vascular disease (CMS/HCC) 10/29/2016 [...] age to complete this topic Care Teams Hospice Volunteer Coordinator Relationship Specialty Start Date End Date Hanna Wheat MD [address] [place] [phone] PCP - General 03/20/23
--- OUTSIDE RECORDS SUMMARY | 2024-05-21 10:49 | XMS_ITS | Encounter Summary ---
Author Organization [employer] [facility] Address [address] [place] [address] [address], [place] [address] Care Team Providers Care Universal Banker Name Role Phone Hanna Wheat MD Primary Care Provide r Encounter Details Date Type Department Care Team (Late st Contact Info) Description 11/15/2022 Orders Only [facility] MEDICINE [address] [place], [place] [phone] Provider, MD Jacinto Social History Tobacco Use [...] on filedocumented in this encounter Care Teams Universal Banker Relationship Specialty Start Date End Date Hanna Wheat MD [address] [place], [place] [phone] PCP - General Family Medicine 10/30/18 Concetta Garcia Fountain ClerkIndian Trader 11/28/22 Concetta Garcia Fountain ClerkIndian Trader 05/13/24 documented as of this encounter
--- OUTSIDE RECORDS SUMMARY | 2024-05-21 10:49 | XMS_ITS | Encounter Summary ---
Author Organization [employer] [facility] Address [address] [place] [address] 7[place], [place] [address] Care Team Providers Care Special Education Classroom Aide Name Role Phone Hanna Wheat MD Primary Care Provide r Reason for Visit * Reason Comments Med Refill Encounter Details Date Type Department Care Team ([facility] st Contact Info) Description 08/24/2022 Refill [facility] MEDICINE 230 [place], [place] [phone] Ellie Wheeler MD [address] [place], [place] [phone] Type 2 diabetes mellitus without complication, unspecified whether lobsterman insulin use ([facility]); Dyslipidemia Social History Tobacco Use Types Packs/Day [...] 2 diabetes mellitus without complication, unspecified whether lobsterman insulin use ([facility]) Dyslipidemia Other and unspecified hyperlipidemia documented in this encounter Care Teams Special Education Classroom Aide Relationship Specialty Start Date End Date Hanna Wheat MD [address] [place] [phone] PCP - General Family Medicine 10/30/18 Concetta Garcia Marketing Operations ManagerMarket Maker 11/28/22 Concetta Garcia Marketing Operations ManagerMarket Maker 05/13/24 documented as of this encounter
--- OUTSIDE RECORDS SUMMARY | 2024-05-21 10:49 | XMS_ITS | Encounter Summary ---
Author Organization [employer] [facility] Address [address] [place] [address] 7 [place] [address] Care Team Providers Care Animal Tech Name Role Phone Hanna Wheat MD Primary Care Provide r Reason for Visit * Reason Comments Med Refill Encounter Details Date Type Department Care Team ([facility] st Contact Info) Description 08/24/2022 Refill [facility] MEDICINE [address] [place], [place] [phone] Kendra Joya MD [address] [place], [place] [phone] Atherosclerosis of coronary artery of [place]tz tribe heart with stable angina pectoris, unspecified vessel [...] Diagnoses Diagnosis 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
[2024-05-21 11:17] LABS: Cholesterol 241 mg/dL (<200); HDL Cholesterol 33 mg/dL (>40); LDL Cholesterol Calculated 139 mg/dL (<100); Triglycerides 346 mg/dL (<150)
[2024-05-21 11:34] LABS: Reflex LDLD? No
== END 2024-05-21 09:46 | disposition home or self-care (01) ==
LOC: HO.XRAY 09:45
PROVIDERS: PCP Internal Medicine; Visit Provider Student in an Organized Health Care Education/Training Program
DX: I10 Essential (primary) hypertension (principal); M17.0 Bilateral primary osteoarthritis of knee; G56.03 Carpal tunnel syndrome, bilateral upper limbs
CPT/HCPCS: 36415; 73562; 80061

== ENCOUNTER → 2024-05-21 10:01 | Outpatient (BNV) | payer MEDICAID, SELFPAY | PROVIDERS: PCP Internal Medicine; Visit Provider Radiology Diagnostic Radiology | DX: M17.0 Bilateral primary osteoarthritis of knee (principal) | CPT/HCPCS: 73562 ==

== ENCOUNTER 2024-06-08 14:48 | Outpatient (AMB) | payer MEDICAID, SELFPAY ==
--- NOTE | 2024-06-08 15:16 | MHC.OFFVIS ---
Vital Signs 06/08/24 15:21 Height 5 ft 9 in Weight 246 lb 0.574 oz BMI 36.3 BP 142/94 H Blood Pressure Location Lt brachial Position Sitting Pulse 86 Pulse Source Pulse Oximeter Pulse Oximetry (%) 98 Oxygen Delivery Method Room Air Intake Visit Reasons: Durolane injection Intake Note: Patient presents for Durolane Injection. Spa Experience Coordinator Required: Yes Spa Experience Coordinator Language: Planting Machine Operator Services: Spa Experience Coordinator Present Spa Experience Coordinator Name: Carrington Curtis Information Interpreted: non-clinical & clinical Allergies Iodinated Contrast Media [IV CONTRAST] Allergy (Intermediate, Verified 06/08/24 15:20) Difficulty Breathing Penicillins Allergy (Mild, Verified 06/08/24 15:20) RASH Sulfa (Sulfonamide Antibiotics) Allergy (Mild, Verified 06/08/24 15:20) RASH codeine Adverse Reaction (Mild, Verified 06/08/24 15:20) STOMACH UPSET Docusate Calcium Allergy (Mild, Uncoded 09/20/23 22:02) rash HPI Comments Details: Patient is a 59-year-old male with hypertension, diabetes, AFib on Eliquis and benign prostate hypertension who presents for follow up of chronic tophaceous non crystal proven gout Interval History: Patient last seen 05/11/24 with me. At that time he was following up after bilateral knee injections which had no improvement. His uric acid was normal and so his colchicine and allopurinol were stopped to monitor him off of these Today he is here for Durolane injections. Rheumatologic History: Initial history: Patient states that he has been pain for the past 3-4 years. Pain involving the left shoulder, bilateral knees and the fingers of the hands. Has noted swelling to the knees in the past but no swelling in the hands No prolonged AM stiffness States that 2 years ago he went to the ED with swollen knees and was told he had gout. No arthocentesis was done. Given medication and sent home. 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 No family history of RA Uric acid was normal and so allopurinol and colchicine were stopped Failed steroid injections to bilateral knees Current Rheumatology Medication(s): COUNTS INCLUDE 234 BEDS AT THE [facility] Medical History (Updated 05/11/24 @ 09:42 by Sangita Adhikari MD) Carpal tunnel syndrome on both sides Bilateral primary osteoarthritis of knee Hypertension Osteoarthritis TIA (transient ischemic attack) Chest pain Gastroparesis Anal fistula Low back pain Perianal abscess History of panic attacks Hx of myocardial infarction Arthritis GERD (gastroesophageal reflux disease) Scoliosis Asthma Tubular adenoma Migraines Seizures Depression Diabetes Adhesive capsulitis of left shoulder Atrial flutter CAD (coronary artery disease) Cellulitis Surgical History History of incision and drainage (~10/19/21) History of umbilical hernia repair History of esophagogastroduodenoscopy (EGD) H/O colonoscopy History of open heart surgery History of sinus surgery History of appendectomy History of angioplasty Family History Father No problems noted. Mother History of stomach cancer History of liver cancer Brother No problems noted. 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 gericare aide teacher to a significant other at home: Yes (children) Do you presently have visiting nurse or other home services: No Alcohol intake: current Alcohol intake frequency: holidays/special occasions only Alcohol type: beer Patient Tobacco Use Status: Never used Tobacco Advance Directives Date on File: 05/15/22 service: No Current occupational status: disabled Review of Systems Const Details: Review of Systems Constitutional: Denies fever, chills, weight loss ENT: Denies vision changes, eye pain or eye redness, dental caries, dry mouth GI: Denies nausea, vomiting, diarrhea, abdominal pain, change in BM Pulm: Denies SOB, LOBO, hemoptysis, wheezing Cards: Denies chest pain, palpitations Skin: Denies Raynaud's, rash, nail changes, photosensitivity, PROFILE MILL OPERATOR TAPE CONTROL: Denies headaches, weakness, paresthesias, recurrent falls MSK: as per HPI All other systems reviewed and are unremarkable except noted above Physical Exam Vital Signs: Last Vital Signs Pulse 86 06/08/24 15:21 BP 142/94 H 06/08/24 15:21 Pulse Ox 98 06/08/24 15:21 Oxygen Delivery Method Room Air 06/08/24 15:21 BMI result Body Mass Index 36.3 Vital signs reviewed Physical Examination CONSTITUITIONAL Patient alert and cooperative. Well appearing and in no apparent painful distress HEENT Conjunctiva and sclera clear. ?Pupils equal round and reactive to light. ?No lymphadenopathy. ? CHEST/RESPIRATORY SYSTEM Normal respiratory effort and able to speak in complete sentences. ?Clear to auscultation bilaterally. ?No crackles, rales, rhonchi, wheezes heard. CARDIAC SYSTEM Regular rate and rhythm. ?S1 and S2 heard no murmurs. ?Radial pulses intact bilaterally MSK Hands: ?Good leather patcher strength bilaterally. No deformities noted. ?No synovitis noted to the MCPs, PIPs or DIPs. ?No tenderness to palpation of these joints. Heberden's nodes noted. Positive Phalen's test Wrists: ?Full range of motion at the wrists without pain. ?No tenderness to palpation or synovitis noted to the wrists. Elbows: Full range of motion without pain. No tenderness, weakness, swelling, increased warmth or erythema. Right elbow with prominent bursa Shoulders: Full range of motion without pain. No tenderness, weakness, swelling, increased warmth or erythema. Hips: Full range of motion without pain. Hip bursa: No tenderness to palpation Knees: ?Full range of motion. ?No tenderness, swelling, increased warmth or erythema.? Bilateral crepitations felt. No effusions Ankles: Full range of motion. ?No tenderness, swelling, increased warmth or erythema.? Feet: ?Negative squeeze test. ?No tenderness to palpation or swelling of the MTPs. Tender points:?No tenderness to palpation of the bilateral trapezius, supraspinatus, greater trochanters, anterior costochondral junctions, bilateral gluteal areas, bilateral suboccipital muscle insertions SKIN Skin intact without rashes. Office Procedures AMB Joint Injection/Aspiration Joint Injection/Aspiration Details: Procedure was explained to the patient and consent was obtained. ? The area of interest was identified and confirmed with patient. ?This was subsequently cleaned with chlorhexidine x3. ? The area was then anesthetized using ethyl chloride spray. 60 mg Durolane injected without issue. ?Minimal to no bleeding. ?Patient tolerated procedure. Primary Site: left knee Prep: site was prepped using aseptic technique and ethochloride spray was applied Injected: other (60 mg Durolane injected without issue) Approach Used: anterior Procedure: The patient tolerated the procedure well Coding 68690 - Large joint Procedure code (CPT) selection complete AMB Joint Injection/Aspiration Joint Injection/Aspiration Details: Procedure was explained to the patient and consent was obtained. ? The area of interest was identified and confirmed with patient. ?This was subsequently cleaned with chlorhexidine x3. ? The area was then anesthetized using ethyl chloride spray. 60 mg Durolane injected without issue. ?Minimal to no bleeding. ?Patient tolerated procedure. Primary Site: left knee Prep: site was prepped using aseptic technique and ethochloride spray was applied Injected: other (60 mg Durolane injected without issue) Approach Used: anterior Procedure: The patient tolerated the procedure well Coding 15468 - Large joint Procedure code (CPT) selection complete Office Meds Durolane 60 mg/3 mL intra-articular syringe Performing Provider: Sangita Adhikari MD Performing Location: [facility] Rheumatology Administered by: Sangita Adhikari MD on 06/08/24 15:45 Dose Route Admin Location Dispensed Lot Number Expiration Date ND Bookkeeping Machine Mechanic 60 mg intra-articular right 3 mL [id number] 11/07/26 [address]-8 [employer] Durolane 60 mg/3 mL intra-articular syringe Performing Provider: Sangita Adhikari MD Performing Location: [facility] Rheumatology Administered by: Sangita Adhikari MD on 06/08/24 15:45 Dose Route Admin Location Dispensed Lot Number Expiration Date NDC Bookkeeping Machine Mechanic 60 mg intra-articular left knee 3 mL [id number] 11/07/26 [id number] [employer] Results Reviewed Results Reviewed: Laboratory Tests 01/20/24 09:55 WBC 8.8 RBC 5.65 Hgb 15.3 Hct 47.5 ESR 4 Sodium 137 Potassium 4.0 Chloride 107 Carbon Dioxide 22 BUN 15 Creatinine 0.98 Uric Acid 5.8 Calcium 10.1 AST 30 ALT 38 Alkaline Phosphatase 98 C-Reactive Protein 0.64 H Rheumatoid Factor 44.0 H Cycl Citrul Peptide IgG <16 XR Bilateral Hands 08/2022 FINDINGS: Right: Degenerative changes are present at the radiocarpal joint. No other significant abnormality is seen. No fractures or dislocations. Left: Surgical clips are noted lateral to the distal radius. A radiopaque foreign body is noted in the fourth digit inferomedial to the distal portion of the middle phalanx. Some minimal degenerative changes are present at the radiocarpal joint. No other significant abnormality seen. No fractures or dislocations. XR Bilateral Knees 05/2024 Findings: Bones intact. No dislocations. Tricompartmental periarticular osteophyte formation, indicating osteoarthritis. No joint effusion. No radiopaque foreign body. IMPRESSION: 1. No acute findings. Assessment & Plan Assessment & Plan (1) Bilateral primary osteoarthritis of knee: Code(s): M17.0 - Bilateral primary osteoarthritis of knee Category: Medical Plan: #Bilateral Knee OA Patient is a 59-year-old male with bilateral knee osteoarthritis. Given his history of 1st MTP pain I was concerned that this could be gout but his uric acid done the last visit was normal, his allopurinol and colchicine were held with plans to recheck his uric acid at next blood draw. He got minimal relief from the steroid injection to bilateral knees 01/2024. And so he is here today for Durolane injections Plan - Durolane injection today x 2 - Continue topical diclofenac - RTC 6 months - Labs before visit: CBC, CMP, ESR, CRP, UA (2) Carpal tunnel syndrome on both sides: Code(s): G56.03 - Carpal tunnel syndrome, bilateral upper limbs Category: Medical Plan: #Bilateral CTS Patient with positive Phalen's test and numbness and tingling to the lateral 3rd digits consistent with carpal tunnel syndrome bilaterally. Continue splinting. If this does not improve his symptoms we will proceed with bilateral carpal tunnel steroid injections. Plan - Continue splinting - Steroid injections if no improvement Plan I spent 30 minutes reviewing the record and labs, taking a history, examining the patient, discussing the treatment plan and documenting in the medical record Orders: Orders AMB Joint Injection/Aspiration Today M17.0 - Bilateral primary osteoarthritis of knee AMB Joint Injection/Aspiration Today M17.0 - Bilateral primary osteoarthritis of knee Coding Level of Care Code Est Pt Level 4 (66450) Complex EM visit Add On G2211 Diagnoses Bilateral primary osteoarthritis of knee M17.0 Carpal tunnel syndrome on both sides G56.03 CPT Codes Coding - 78789 Large joint: 77071 - Large joint ([id number]) Coding - 98490 Large joint: 08649 - Large joint ([id number])
[2024-06-08 15:21] VITALS: BP 142/94; PULSE 86; O2SAT 98; BMI 36.3
--- OUTSIDE RECORDS SUMMARY | 2024-06-08 17:38 | XMS_ITS | Clinical Summary ---
Author Organization [facility] Address [address] [place] [address] Care Team Providers Care Archival Studies Professor Name Role Phone Hanna Wheat MD Primary Care Provide r Surgical History Surgery Date Site/Laterality Comments CARDIAC CATHETERIZATION PROCEDURE: HISTORICAL CARDIAC CATH; COMMENT: Cath Jan 2014 s/p mult stents at [facility] APPENDECTOMY PROCEDURE: HISTORICAL APPENDECTOMY HERNIA REPAIR PROCEDURE: HISTORICAL HERNIA REPAIR/UMB OTHER SURGICAL HISTORY PROCEDURE: ---- OTHER ----; COMMENT: sinus surgery COLONOSCOPY 2014 PROCEDURE: HISTORICAL COLONOSCOPY; COMMENT: repeat in 5 yrs, per patient, at [facility] Medical History Medical History Date Comments Atrial fibrillation (CMS/HCC) 11/27/2015 DX :Atrial fibrillation ([facility]); COMMENT: During hospital admission at [facility] Nov 2015, reverted to sinus wiith meds, f/u Cardio at [place], will have 30day loop recorder, off anticoagulation per cardiology CAD (coronary artery disease) 10/27/2015 DX :CAD (coronary artery disease); COMMENT: Cath Jan 2014, s/p multiple stent at [facility], Dr Luo, Several stress tests, echos [...] DX:Mixed anxiety and depressive disorder; COMMENT: F/u [facility] Peripheral vascular disease (CMS/HCC) 10/29/2016 [...] age to complete this topic Care Teams Archival Studies Professor Relationship Specialty Start Date End Date Hanna Wheat MD [address] [place] [phone] PCP - General 03/20/23
--- OUTSIDE RECORDS SUMMARY | 2024-06-08 17:38 | XMS_ITS | Clinical Summary ---
Author Organization [facility] Address [address] [place] [address] Phone Care Team Providers Care Manager Store Name Role Phone Unavailable Primary Care Provider [...] Quadrivalent, With Preservative 11/29 Influenza, Unspecified 11/27/2015,12/20/2013, [employer]aNUMBER SARS-COV-2 05/31/2020 Pfizer SARS-COV-2 12/18/2021,06/21/2021 Pneumococcal Conjugate [...] PCV20) 2029 10/21/2016, 10/08/2016, 02/11/2002 [place]
== END 2024-06-08 15:43 | disposition home or self-care (01) ==
LOC: HO.RHE 14:48
PROVIDERS: PCP Internal Medicine; Visit Provider Student in an Organized Health Care Education/Training Program
DX: M17.0 Bilateral primary osteoarthritis of knee (principal); G56.03 Carpal tunnel syndrome, bilateral upper limbs
CPT/HCPCS: 20610; 99214

== ENCOUNTER → 2024-06-08 14:48 | Outpatient (BNVA) | payer MEDICAID, SELFPAY | PROVIDERS: PCP Internal Medicine; Visit Provider Student in an Organized Health Care Education/Training Program | DX: M17.0 Bilateral primary osteoarthritis of knee (principal); G56.03 Carpal tunnel syndrome, bilateral upper limbs | CPT/HCPCS: 20610; 99212; J7318 ==

== ENCOUNTER 2024-06-21 11:41 | Outpatient (REF) | payer MEDICAID, SELFPAY ==
[2024-06-21 13:11] LABS: MANUAL DIFF FLAG NO
[2024-06-21 13:34] LABS: Basophils Absolute Auto 0.1 X10*3/uL (0.0-0.2); Eosinophils Absolute Auto 0.3 X10*3/uL (0.0-0.4); Eosinophils Percent Auto 3.6 % (0-4); Hematocrit 51.3 % (42.0-52.0); Hemoglobin 16.7 g/dl (14.0-18.0); Imm Gran Abs Auto 0.03 X10*3/uL (0.00-0.03); Imm Gran Pct Auto 0.3 % (0.0-0.4); Lymphocytes Absolute Auto 3.8 X10*3/uL (1.2-4.9); Lymphocytes Percent Auto 42.7 % (20-40); Mean Corpuscular HGB Conc 32.6 g/dl (31.0-36.0); Mean Corpuscular Hemoglobin 27.4 pg (27.0-33.0); Mean Corpuscular Volume 84.2 fL (80.0-98.0); Mean Platelet Volume 10.2 fL (9.4-12.4); Monocytes Absolute Auto 0.5 X10*3/uL (0.1-1.2); Monocytes Percent Auto 5.7 % (2-11); Neutrophils Absolute Auto 4.1 x10*3/uL (2.0-8.3); Neutrophils Percent Auto 46.7 % (45-73); Platelet Count 347 X10*3/uL (160-400); Red Blood Count 6.09 X10*6/uL (4.60-5.80); White Blood Count 8.8 X10*3/uL (4.8-10.8)
--- OUTSIDE RECORDS SUMMARY | 2024-06-21 13:43 | XMS_ITS | Encounter Summary ---
Author Organization [employer] Address [address] [place] [address] [address] [address] Care Team Providers Care Manager Community Outreach Name Role Phone Hanna Wheat MD Primary Care Provide r Encounter Details Date Type Department Care Team (Late st Contact Info) Description 07/07/2022 Orders Only [facility] MEDICINE [address] [place] [address] Kendra Joya MD [address] [place] [address] Social History Tobacco Use Types Packs/Day Years [...] on filedocumented in this encounter Care Teams Manager Community Outreach Relationship Specialty Start Date End Date Hanna Wheat MD [address] [place] [address] PCP - General Family Medicine 10/30/18 Concetta Garcia Support EngineerDry Kiln Worker 11/28/22 Concetta Garcia Support EngineerDry Kiln Worker 05/13/24 documented as of this encounter
--- OUTSIDE RECORDS SUMMARY | 2024-06-21 13:43 | XMS_ITS | Encounter Summary ---
Author Organization [facility] Address [address] [place] [address] [address] [place] [address] Care Team Providers Care Peripatologist Name Role Phone Hanna Wheat MD Primary [...] on filedocumented in this encounter Care Teams Peripatologist Relationship Specialty Start Date End Date Hanna Wheat MD [address] [place] [phone] PCP - General Family Medicine 10/30/18 Concetta Garcia Custom Tailor ApprenticePropeller Layout Worker 11/28/22 Concetta Garcia Custom Tailor ApprenticePropeller Layout Worker 05/13/24 documented as of this encounter
--- OUTSIDE RECORDS SUMMARY | 2024-06-21 13:43 | XMS_ITS | Clinical Summary ---
Author Organization [facility] Address [address] [place] [address] Phone Care Team Providers Care Fire Chief Deputy Name Role Phone Unavailable Primary Care Provider [...] 11/2012, benign, recommend rpt US 2014 Immunizations Immunization Administration Dates Next Due HepB-CpG 08/14/2022,05/28/2022 Influenza Split 12/28/2012,12/04/2011 Influenza, MDCK, PF, Quadrivalent 12/28/2020,05/2018 Influenza, MDCK, Quadrivalen t, with preservative 01/08/2020 Influenza, Quadrivalent, Preservative Free 12/18,12/10/2018 Influenza, Quadrivalent, With Preservative 11/29 Influenza, Unspecified 11/27/2015,12/20/2013, [employer] SARS-COV-2 05/31/2020 Pfizer SARS-COV-2 12/18/2021,06/21/2021 Pneumococcal Conjugate [...] Colonoscopy 2013 Colorectal Cancer Screening: Sigmoidoscopy 2013 Pneumococcal Vaccine: 50+ Ye ars (4 of 4 - PCV20 or PCV21) 10/21/2021 10/21/2016, 10/08/2016, 02/11/2002 Diabetes: Ophthalmology Exam 10/03/2022 Diabetes: Pedal Pulse Checked 10/03/2022 Diabetes: Sensory Foot Exam 10/03/2022 Diabetes: Visual Foot Exam 10/03/2022 Hepatitis B Vaccine (3 of 3 - 19+ 3-dose series) 11/28/2022 08/14/2022, 05/28/2022 Diabetes: Hemoglobin A1C 04/09/2023 01/07/2023, 07/0 09/2022 Influenza Vaccine (Season Ended) 2024 01/07/2023, 12/18/2021, 12/28/2020, Additional history exists Pneumococcal Vaccine: Peds ( 0 to 5 Years) and At-Risk Patients (6 to 49 Years) Discontinued 10/21/2016, 10/08/2016, 02/11/2002 Insurance Medicaid [place]
--- OUTSIDE RECORDS SUMMARY | 2024-06-21 13:43 | XMS_ITS | Clinical Summary ---
Author Organization [facility] Address [address] [place] [address] Care Team Providers Care Powerhouse Mechanic Apprentice Name Role Phone Hanna Wheat MD Primary Care Provide r Surgical History Surgery Date Site/Laterality Comments CARDIAC CATHETERIZATION PROCEDURE: HISTORICAL CARDIAC CATH; COMMENT: Cath Jan 2014 s/p mult stents at [facility] APPENDECTOMY PROCEDURE: HISTORICAL APPENDECTOMY HERNIA REPAIR PROCEDURE: HISTORICAL HERNIA REPAIR/UMB OTHER SURGICAL HISTORY PROCEDURE: ---- OTHER ----; COMMENT: sinus surgery COLONOSCOPY 2014 PROCEDURE: HISTORICAL COLONOSCOPY; COMMENT: repeat in 5 yrs, per patient, at [place] Medical History Medical History Date Comments Atrial fibrillation (CMS/HCC V24, CMS/HCC V28) 11/27/2015 DX:Atrial fibrillation ([facility]) ; COMMENT: During hospital admission at [place] Nov 2015, reverted to sinus wiith meds, f/u Cardio at [place], will have 30day loop recorder, off anticoagulation per cardiology CAD (coronary artery disease) 10/27/2015 DX :CAD (coronary artery disease); COMMENT: Cath Jan 2014, s/p multiple stent at [facility], Dr Luo, Several stress tests, echos Chronic gout 10/27/2015 DX:Chronic gout; COMMENT: Left knee and ankle Complicated migraine 10/29/2016 DX:Complica den migraine; COMMENT: 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, 2005, Dr Whiting, on Neurontin Diabetes mellitus type 2 wit h neurological manifestations (CMS/HCC V24, CMS/HCC V28) 10/29/2016 DX:Diabetes mellitus type 2 with neurological manifestations (HCC); COMMENT: Basim CTS Diverticulosis 10/29/2016 DX:Diverticulosi s; COMMENT: CT 03/10/2015 sigmoid, DJD of left shoulder 10/29/2016 DX:DJD of l eft shoulder DM (diabetes mellitus), type 2 with peripheral vascular complications (CMS/HCC V24, CMS/HCC V28) 10/27/2015 DX:DM (diabetes mellitus), type 2 with peripheral vascular complications (HCC); COMMENT: [...] DDD, facet arthropathy MRI 04/21/2012 Mesenteric panniculitis (CMS /HCC V24, CMS/HCC V28) 10/29/2016 DX:Mesenteric panniculitis ( HCC); COMMENT: CT 03/10/2015 Microalbuminuria 10/29/2016 DX:Microalbumin uria Mixed anxiety and depressive disorder 10/08/2016 DX:Mixed anxiety and depressive disorder; COMMENT: F/u [facility] Peripheral vascular disease (CMS/HCC V24) 10/29/2016 DX:Peripheral vascular disea se (HCC); COMMENT: Distal aorta and branches on CT 2013 Renal cyst 10/29/2016 DX:Renal cyst; C OMMENT: On CT Seizure disorder (CMS/HCC V2 4, CMS/HCC V28) 10/29/2016 DX:Seizure disorder (HCC) Thyroid nodule 10/29/2016 DX:Thyroid nodul e; COMMENT: Dr Martínez [facility] Endo, L lobe nodule bx 11/2012, benign, recommend rpt US 2014 Type 2 diabetes with nephrop athy (CMS/HCC V24, CMS/HCC V28) 10/29/2016 DX:Type 2 diabetes with nep hropathy (HCC); COMMENT: microalbuminuria Alcohol abuse 10/09/2017 DX:Alcohol [...] Influencers of Health Screening 10/07/2023 COVID-19 Vaccine (1 - 2023-2 5 season) 2023 Hepatitis B Vaccines (1 of 3 - Risk 3-dose series) 2024 RSV Immunization Adult Patients (1 - Risk 60-74 years 1-dose series) 2024 Influenza Vaccine (Season Ended) 2024 03/12/2018, 11/27/2015 DTaP,Tdap,and Td Vaccines (3 - Td or [...] age to complete this topic Meningococcal B Vaccine Aged Out No l onger eligible based on patient's age to complete this topic RSV Immunization Patients Under 20 months Aged Out No longer eligible b ased on patient's age to complete this topic Varicella Vaccines Aged Out No longer eligible based on patient's age to complete this topic Care Teams Powerhouse Mechanic Apprentice Relationship Specialty Start Date End Date Hanna Wheat MD [address] [place] [phone] PCP - General 03/20/23
--- OUTSIDE RECORDS SUMMARY | 2024-06-21 13:43 | XMS_ITS | Encounter Summary ---
Author Organization [employer] [facility] Address [address] [place] [address] [address] Care Team Providers Care Hydramatic Mechanic Name Role Phone Hanna Wheat MD Primary Care Provide r Reason for Referral * Imaging (Routine) - Authorized Specialty Diagnoses / Procedures Referred By Contac t Referred To Contact Radiology Diagnoses Generalized abdominal pain Procedures CT Abdomen Pelvis w/ and w/o Contrast Kendra Joya MD [address] [place] [address] Phone: tel: fax: [address] Phone: tel: fax: Referral ID Status Reason Start Date Expiration Date V isits Requested Visits Authorized [id number] Authorized 06/21/2024 06/21/2025 1 1 Encounter Details Date Type Department Care Team (Late st Contact Info) Description 06/21/2024 10:40 AM EDT Office Visit [facility] [address] [place], [place] [phone] Kendra Joya MD [address] [place] [address] [phone] Generalized abdominal pain (Primary Dx); Low back pain with radiation Social History Tobacco Use Types Packs/Day Years [...] AM EDT documented as of this encounter Last Filed Vital Signs Vital Sign Reading Time Taken Comments Blood Pressure 156/98 06/21/2024 10:34 AM EDT Pulse 85 06/21/2024 10:34 AM EDT Temperature 36.3 ??C (97.3 ??F) 06/21/2024 10:34 AM E DT Respiratory Rate - - Oxygen Saturation 98% 06/21/2024 10:34 AM EDT Inhaled Oxygen Concentration - - Weight 113 kg (249 lb) 06/21/2024 10:34 AM EDT Height 175.3 cm (5' 9 ) 06/21/2024 10:34 AM EDT Body Mass Index 36.77 06/21/2024 10:34 AM EDT documented in this encounter Progress Notes * Kendra Joya MD - 06/21/2024 10:40 AM EDT SUBJECTIVE: Brannon Leavitt is a 59 y.o. year old male who presents for Walk In Center/abd pain . Denies recent illness, injury, or hospitalization. Acute Concerns: Patient complaining of bilateral flank pain for about 4 days. Pain is radiated to both lower quadrants, no nausea, vomiting, diarrhea, constipation, fever or chills. His appetite is normal and does not have postprandial pain, no bright red blood per rectum or melena. He has not changed any medications recently. He denies increased urinary frequency, gross hematuria or dysuria. Social History Social History Narrative Not on file Patient Active Problem List Diagnosis Alcohol abuse Atherosclerosis of coronary artery Atrial fibrillation ([facility]/H[facility]) Chronic obstructive pulmonary disease ([facility]) Complicated migraine Diabetes mellitus type 2 with neurological manifestations ([facility]) Diverticulosis Type 2 diabetes mellitus with hyperglycemia, without long-term current use of insulin ([facility]) Gastroesophageal reflux disease Hemorrhoids Hypercholesterolemia Primary osteoarthritis of left knee Renal cyst Thyroid nodule Left lower quadrant pain Rectal bleeding Chronic gout Chronic low back pain Contusion of rib Epigastric pain Gouty arthritis of left hand Hemangioma of liver Hypertension Depressive disorder Multiple joint pain TIA (transient ischemic attack) Acquired syphilis Migraine without aura and without status migrainosus, not intractable GI (acute kidney injury) ([facility]) Encounter for preventative adult health care examination Bilateral carpal tunnel syndrome Onychomycosis Primary osteoarthritis of both knees Muscle spasm OA (osteoarthritis) Lumbar disc disease Generalized abdominal pain No family history on file. Review of Systems Constitutional: Negative for fever. HENT: Negative for congestion, ear pain, rhinorrhea and sore throat. Eyes: Negative for pain and discharge. Respiratory: Negative for cough and shortness of breath. Cardiovascular: Negative for chest pain. Gastrointestinal: Positive for abdominal pain. Negative for constipation, diarrhea and nausea. Endocrine: Negative for polydipsia. Genitourinary: Negative for dysuria and frequency. Musculoskeletal: Negative for arthralgias, back pain and neck pain. Neurological: Negative for dizziness, numbness and headaches. Psychiatric/Behavioral: Negative for agitation. OBJECTIVE: Vitals: 06/21/24 1034 BP: (!) 156/98 Pulse: 85 Temp: 97.3 ??F (36.3 ??C) SpO2: 98% Physical Exam Constitutional: Appearance: Normal appearance. HENT: Right Ear: Tympanic membrane and ear canal normal. Left Ear: Tympanic membrane and ear canal normal. Mouth/Throat: Mouth: Mucous membranes are moist. Pharynx: No oropharyngeal exudate or posterior oropharyngeal erythema. Eyes: Pupils: Pupils are equal, round, and reactive to light. Cardiovascular: Rate and Rhythm: Normal rate and regular rhythm. Heart sounds: No murmur heard. Pulmonary: Breath sounds: Normal breath sounds. No wheezing. Abdominal: General: Bowel sounds are normal. Palpations: Abdomen is soft. Tenderness: There is abdominal tenderness in the right upper quadrant, periumbilical area and left upper quadrant. There is no right CVA tenderness, left CVA tenderness, guarding or rebound. Negativesigns include 's sign and McBurney's sign. Musculoskeletal: General: No tenderness. Normal range of motion. Cervical back: Normal range of motion. No tenderness. Skin: General: Skin is warm. Neurological: General: No focal deficit present. Mental Status: He is alert and oriented to person, place, and time. Psychiatric: Mood and Affect: Mood normal. Office Visit on 06/21/2024 Component Date Value Ref Range Status Color, UA 06/21/2024 Yellow Final Clarity, UA 06/21/2024 Clear Final Glucose, 06/21/2024 Trace Final 1000mg Bilirubin, 06/21/2024 Negative Final Ketones, UA 06/21/2024 Negative Final Spec Grav, UA 06/21/2024 1.015 Final Blood, UA 06/21/2024 Negative Negative, None Detected Final pH, UA 06/21/2024 5.5 Final Protein, UA 06/21/2024 Negative Final Urobilinogen, UA 06/21/2024 0.2 Final Leukocytes, UA 06/21/2024 Negative Negative, Rare, Trace Final Nitrite, UA 06/21/2024 Negative Negative, None Detected Final Appearance, UA 06/21/2024 clear Final QC Media Lot # 06/21/2024 [id number] Final Lot# Expiration Date 06/21/2024 22,827 Final Problem List Items Addressed This Visit Generalized abdominal pain - Primary It could be related to mild diverticulosis,. He has diverticulitis. Other lab/pelvic CT scan follow-up results Order labs Advised regarding proper hydration, soft bland diet for the next 2 to 3 days and advance as tolerated. Take Tylenol as needed pain Relevant Orders CT Abdomen Pelvis w/ and w/o Contrast CBC auto differential Comprehensive Metabolic Panel Other Visit Diagnoses Low back pain with radiation Relevant Orders POCT Urinalysis (Completed) Follow Up: Current Outpatient Medications on File Prior to Visit Medication Sig Dispense Refill acetaminophen (Tylenol 8 Hour) 650 MG ER tablet TAKE 2 TABLETS BY MOUTH EVERY 8 HOURS NEEDED FORMILD PAIN 40 tablet 1 allopurinol (Zyloprim) 100 MG [...] 6 tablet 0 Blood Glucose Monitoring Suppl ([employer]Link Auto Detailinge) device Inject 1 each under the skin [...] BY MOUTH EVERY MORNING 90 tablet 1 esomeprazole (NexIUM) [address] capsule TAKE 1 CAPSULE BY MOUTH EVERY MORNING AT 630 famotidine (Pepcid) 20 MG tablet TAKE 1 [...] crush, chew, or split. 30 tablet 0 isosorbide mononitrate ER (Imdur) 30 MG 24 hr tablet Take 30 mg by mouth at bedtime. Lidoderm 5 % patch APPLY 1-2 PATCHES TOPICALLY TO AFFECTED AREA(S) EVERY DAY NEEDED FOR PAIN. REMOVE AFTER 12 hours. Linzess 145 MCG capsule Take 1 capsule by mouth Once per day. losartan (Cozaar) 100 MG tablet TAKE 1 [...] SUGAR TWICE DAILY Trulicity 3 MG/0.5ML solution auto-injector INJECT ONE PEN (= 3MG) SUBCUTANEOUSLY ONCE A WEEK DIRECTED 2 mL 3 Wheat Dextrin (benefiber drink mix) packet MIX 1 PACKET IN 4 OUNCES IN WATER OR JUICE AND DRINK DAILY DIRECTED No current facility-administered medications on file prior to visit. documented in this encounter Miscellaneous Notes * Assessment & Plan Note - Kendra Joya MD - 06/21/2024 11:19 AM EDT Associated Problem(s): Generalized abdominal pain It could be related to mild diverticulosis,. He has diverticulitis. Other lab/pelvic CT scan follow-up results Order labs Advised regarding proper hydration, soft bland diet for the next 2 to 3 days and advance as tolerated. Take Tylenol as needed pain documented in this encounter Plan of Treatment Scheduled Orders Name Type Priority Associated Diagnoses Orde r Schedule CT Abdomen Pelvis w/ and w/o Contrast Imaging Routine Generalized abdominal pain Expected: 06/21/2024 (Approximate), Expires: 06/21/2025 Comprehensive Metabolic Panel Lab Routine Generalized abdominal pain Expected: 06/21/2024 (Approximate), Expires: 06/21/2025 documented as of this encounter Procedures Procedure Name Priority Date/Time Associated Diagnosis Comments CBC WITH AUTO DIFFERENTIAL Routine 06/21/2024 11:43 AM EDT Generalized abdominal pain POCT URINALYSIS DIPSTICK Routine 06/21/2024 10:42 AM EDT Low back pain with radiation documented in this encounter Results * (ABNORMAL) CBC auto differential (06/21/2024 11:43 AM EDT) White Blood Count 8.8 4.8 - 10.8 X10*3/uL [facility] Red Blood Count 6.09(H) 4.60 - 5.80 X10*6/uL [facility] Hemoglobin 16.7 14.0 - 18.0 g/dl [facility] Hematocrit 51.3 42.0 - 52.0 % [facility] Mean Corpuscular Volume 84.2 80.0 - 98.0 fL [facility] Mean Corpuscular Hemoglobin 27.4 27.0 - 33.0 pg [facility] Mean Corpuscular HGB Conc 32.6 31.0 - 36.0 g/dl [facility] Red Cell Distribution Width 14.0 11.0 - 16.0 % [facility] Platelet Count 347 160 - 400 X10*3/uL [facility] Mean Platelet Volume 10.2 9.4 - 12.4 fL [facility] Neutrophils Percent Auto 46.7 45 - 73 % [facility] Imm Gran Pct Auto 0.3 0.0 - 0.4 % [facility] Lymphocytes Percent Auto 42.7(H) 20 - 40 % [facility] Monocytes Percent Auto 5.7 2 - 11 % [facility] Eosinophils Percent Auto 3.6 0 - 4 % [facility] Basophils Percent Auto 1.0 0 - 2 % [facility] NRBC Pct Auto 0.0 0.0 - 0.2 /100WBC [facility] Neutrophils Absolute Auto 4.1 2.0 - 8.3 x10*3/uL [facility] Imm Gran Abs Auto 0.03 0.00 - 0.03 X10*3/uL [facility] Lymphocytes Absolute Auto 3.8 1.2 - 4.9 X10*3/uL [facility] Monocytes Absolute Auto 0.5 0.1 - 1.2 X10*3/uL [facility] Eosinophils Absolute Auto 0.3 0.0 - 0.4 X10*3/uL [facility] Basophils Absolute Auto 0.1 0.0 - 0.2 X10*3/uL [facility] NRBC Abs Auto 0.000 0.0 - 0.012 X10*3/uL [facility] Blood Venous blood specimen / Unknown 06/21/2024 11:43 AM EDT 06/21/2024 1:04 PM EDT us Kendra Joya MD LAB BLOOD ORDERABLES Fin al Result [facility] [address] [place] [address] [phone] * POCT Urinalysis (06/21/2024 10:42 AM EDT) Color, UA Yellow Clarity, UA Clear Glucose, UA Trace Comment:1000mg Bilirubin, UA Negative Ketones, UA Negative Spec Grav, UA 1.015 Blood, UA Negative Negative, None Detected pH, UA 5.5 Protein, UA Negative Urobilinogen, UA 0.2 Leukocytes, UA Negative Negative, Rare, Trace Nitrite, UA Negative Negative, None Detected Appearance, UA clear QC Media Lot # [id number] Lot# Expiration Date Urine 06/21/2024 10:4 2 AM EDT Kendra Joya MD POINT OF CARE TEST ENTER /EDIT ORDERABLES Final Result documented in this encounter Visit Diagnoses Diagnosis Generalized abdominal pain- Primary Abdominal pain, generalized Low back pain with radiation documented in this encounter Additional Health Concerns Assessment Noted Time PHQ-9 Depression Total Score: 0 05/16/19 24 9:06 AM EST documented as of this encounter Care Teams Hydramatic Mechanic Relationship Specialty Start Date End Date Hanna Wheat MD [address] [place] [id number] PCP - General Family Medicine 10/30/18 Concetta Garcia Family Practice Medical DoctorHead Of Acquisitions 11/28/22 Concetta Garcia Family Practice Medical DoctorHead Of Acquisitions 05/13/24 documented as of this encounter
--- OUTSIDE RECORDS SUMMARY | 2024-06-21 13:43 | XMS_ITS | Encounter Summary ---
Author Organization [employer] [facility] Address [address] [place] [address] [address] [place] [address] Care Team Providers Care Inspector Open Die Name Role Phone Hanna Wheat MD Primary Care Provide r Reason for Visit * Reason Comments Med Refill Encounter Details Date Type Department Care Team ([facility] st Contact Info) Description 08/24/2022 Refill [facility] [address] [place], [place] [phone] Kendra Joya MD [address] [place], [place] [phone] Atherosclerosis of coronary artery of algaaciq heart with stable angina pectoris, unspecified vessel [...] Diagnoses Diagnosis Atherosclerosis of coronary artery of algaaciq heart with stable angina pectoris, unspecified vessel or lesion type ([facility]) documented in this encounter Care Teams Inspector Open Die Relationship Specialty Start Date End Date Hanna Wheat MD [address] [place] [phone] PCP - General Family Medicine 10/30/18 Concetta Garcia Workers Compensation AnalystConductor Freight 11/28/22 Concetta Garcia Workers Compensation AnalystConductor Freight 05/13/24 documented as of this encounter
--- OUTSIDE RECORDS SUMMARY | 2024-06-21 13:43 | XMS_ITS | Encounter Summary ---
Author Organization [employer] Address [address] [place] [address] [address] [place] [address] Care Team Providers Care Crm Analyst Name Role Phone Hanna Wheat MD Primary Care Provide r Reason for Visit * Reason Comments Med Refill Encounter Details Date Type Department Care Team ([facility] st Contact Info) Description 11/07/2022 Refill [facility] [address] [place] [address] Shukri Carney MD [address] [place] [address] Seasonal allergies; Low back pain, unspecified back [...] present documented in this encounter Care Teams Crm Analyst Relationship Specialty Start Date End Date Hanna Wheat MD [address] [place] [address] PCP - General Family Medicine 10/30/18 Concetta Garcia Clinical Informatics SpecialistCloud Systems Administrator 11/28/22 Concetta Garcia Clinical Informatics SpecialistCloud Systems Administrator 05/13/24 documented as of this encounter
--- OUTSIDE RECORDS SUMMARY | 2024-06-21 13:43 | XMS_ITS | Encounter Summary ---
Author Organization [employer] [facility] Address [address] [place] [address] [address], [place] [address] Care Team Providers Care Fusing Machine Operator Name Role Phone Hanna Wheat MD Primary Care Provide r Reason for Visit * Reason Comments Med Refill Encounter Details Date Type Department Care Team ([facility] st Contact Info) Description 08/24/2022 Refill [facility] [address] [place], [place] [phone] Ellie Wheeler MD [address] [place], [place] [phone] Type 2 diabetes mellitus without complication, unspecified whether intermediate manager insulin use ([facility]); Dyslipidemia Social History Tobacco Use Types [...] 2 diabetes mellitus without complication, unspecified whether intermediate manager insulin use ([facility]) Dyslipidemia Other and unspecified hyperlipidemia documented in this encounter Care Teams Fusing Machine Operator Relationship Specialty Start Date End Date Hanna Wheat MD [address] [place] [id number] PCP - General Family Medicine 10/30/18 Concetta Garcia Nutrition AssistantFeather Edger 11/28/22 Concetta Garcia Nutrition AssistantFeather Edger 05/13/24 documented as of this encounter
--- OUTSIDE RECORDS SUMMARY | 2024-06-21 13:43 | XMS_ITS | Encounter Summary ---
Author Organization [employer] [facility] Address [address] [place] [address] [address], [place] [address] Care Team Providers Care Job Estimator Name Role Phone Hanna Wheat MD Primary Care Provide r Reason for Visit * Reason Comments Med Refill Encounter Details Date Type Department Care Team ([facility] st Contact Info) Description 11/06/2022 Refill [facility] [address] [place], [place] [phone] Shukri Carney MD [address] [place] [address] Social History Tobacco Use Types Packs/Day Years [...] on filedocumented in this encounter Care Teams Job Estimator Relationship Specialty Start Date End Date Hanna Wheat MD [address] [place], [place] [phone] PCP - General Family Medicine 10/30/18 Concetta Garcia Computer Training SpecialistMolecular Spectroscopist 11/28/22 Concetta Garcia Computer Training SpecialistMolecular Spectroscopist 05/13/24 documented as of this encounter
--- OUTSIDE RECORDS SUMMARY | 2024-06-21 13:43 | XMS_ITS | Encounter Summary ---
Author Organization [employer] [facility] Address [address] [place] [address] [address] [address] Care Team Providers Care Process Control Programmer Name Role Phone Hanna Wheat MD Primary Care Provide r Encounter Details Date Type Department Care Team (Late st Contact Info) Description 11/15/2022 Orders Only [facility] [address] [place], [place] [phone] Provider, MD Jacinto Social History Tobacco Use [...] on filedocumented in this encounter Care Teams Process Control Programmer Relationship Specialty Start Date End Date Hanna Wheat MD [address] [place], [place] [phone] PCP - General Family Medicine 10/30/18 Concetta Garcia Larry OperatorSand Hauler 11/28/22 Concetta Garcia Larry OperatorSand Hauler 05/13/24 documented as of this encounter
--- OUTSIDE RECORDS SUMMARY | 2024-06-21 13:43 | XMS_ITS | Clinical Summary ---
Author Organization [facility] Address [address] [facility] 7[address] [place] [address] Care Team Providers Care Assistant Technician Name Role Phone Hanna Wheat MD Primary [...] sciatica present take one daily 30 tablet Active methocarbamol (Robaxin) 750 MG tabletIndications :Muscle spasm Take 1 tablet (750 mg) by mouth 4 times daily for 10 days. 40 tablet Active Blood Glucose Monitoring Suppl (PieholeStyle Lite) deviceIndications :Type 2 diabetes mellitus without complication, without long-term current use of insulin ([facility]) Inject 1 each under the skin [...] day. 90 tablet 3 024 2024 Active diclofenac sodium 3 % gelIndications:Pr imary osteoarthritis of both knees APPLY 2 GRAMS TOPICALLY TWICE DAILY 100 g 1 Active tamsulosin (Flomax) 0.4 MG 24 hr capsule TAKE 1 CAPSULE BY MOUTH EVERY MORNING 90 capsule 1 Active amLODIPine (Norvasc) 10 MG tabletIndications :Primary hypertension TAKE 1 TABLET BY MOUTH EVERYDAY AT NOON 90 tablet 1 Active metFORMIN (Glucophage) 500 MG tabletIndications :Type 2 diabetes mellitus without complication, unspecified whether jail insulin use (CMS/HCC) TAKE 1 TABLET BY MOUTH TWICE DAILY IN THE MORNING AND IN THE EVENING 180 tablet 1 Active metoprolol tartrate (Lopressor) 50 MG tabletIndications :Atherosclerosis of coronary artery of [place] heart with stable angina pectoris, unspecified vessel or lesion type ([facility]) TAKE 1 AND 1/2 TABLETS BY MOUTH TWICE DAILY IN THE MORNING AND IN THE EVENING 270 tablet 1 Active glipiZIDE XL (Glucotrol XL) 10 MG 24 hr tabletIndications :Type 2 diabetes mellitus without complication, unspecified whether predatory animal exterminator insulin use ([facility]) TAKE 1 TABLET BY MOUTH TWICE DAILY IN THE MORNING AND IN THE EVENING WITH MEALS 180 tablet 1 Active fenofibrate (Triglide) 160 MG tabletIndications :Dyslipidemia TAKE 1 TABLET BY MOUTH EVERY EVENING (for cholesterol) 90 tablet 1 Active niacin (Niaspan) 500 MG ER tabletIndications :Mixed hyperlipidemia TAKE 1 TABLET BY MOUTH AT BEDTIME 90 tablet 1 Active atorvastatin (Lipitor) 80 MG tabletIndications :Mixed hyperlipidemia TAKE 1 TABLET BY MOUTH AT BEDTIME 90 tablet 1 Active aspirin (Aspirin Low Dose) 81 MG EC tablet TAKE 1 TABLET BY MOUTH EVERY MORNING 90 tablet 1 024 Active losartan (Cozaar) 100 MG tabletIndications :Primary hypertension,Type 2 diabetes mellitus with hyperglycemia, without long-term current use of insulin ([facility]) TAKE 1 TABLET BY MOUTH EVERY MORNING 90 tablet 1 Active fluticasone furoate (Arnuity Ellipta) 100 MCG/ACT inhaler INHALE 1 PUFF BY MOUTH EVERY DAY AT THE SAME TIME RINSE MOUTH AFTER USING. 30 each 3 Active esomeprazole (NexIUM) [address] capsule TAKE 1 CAPSULE BY MOUTH EVERY MORNING AT 630 Active allopurinol (Zyloprim) 100 MG tablet Take 100 mg by mouth in the morning. Active Linzess 145 MCG capsule Take 1 capsule by mouth Once per day. Active isosorbide mononitrate ER (Imdur) 30 MG 24 hr tablet Take 30 mg by mouth at bedtime. Active FREESTYLE LITE test stripIndications: Type 2 diabetes mellitus with hyperglycemia, without long-term current use of insulin ([facility]) USE DIRECTED TO TEST BLOOD SUGAR TWICE DAILY 50 strip 11 025 Active empagliflozin (Jardiance) 10 MGIndications:Typ e 2 diabetes mellitus with hyperglycemia, without long-term current use of insulin ([facility]) TAKE 1 TABLET BY MOUTH EVERY MORNING 90 tablet 1 025 Active acetaminophen (Tylenol 8 Hour) 650 MG ER tabletIndications :Primary osteoarthritis of both knees TAKE 2 TABLETS BY MOUTH EVERY 8 HOURS NEEDED FOR MILD PAIN 40 tablet 1 025 Active Trulicity 3 MG/0.5ML solution auto-injectorIndi cations:Type 2 diabetes mellitus with other specified complication ([facility]) INJECT ONE PEN (= 3MG) SUBCUTANEOUSLY ONCE A WEEK DIRECTED 2 mL 3 025 Active cholecalciferol (D3 Super Strength) 50 MCG (1999 UT) capsuleIndication s:Low back pain, unspecified back pain laterality, unspecified chronicity, unspecified whether sciatica present TAKE 1 CAPSULE BY MOUTH EVERY MORNING 90 capsule 1 025 Active Trulicity 3 MG/0.5ML solution pen-injector INJECT ONE PEN (= 3MG) SUBCUTANEOUSLY ONCE A WEEK DIRECTED 2 mL 3 024 2024 Discontinued cholecalciferol (D3 Super Strength) 50 MCG (1999 UT) capsuleIndication s:Low back pain, unspecified back pain laterality, unspecified chronicity, unspecified whether sciatica present TAKE 1 CAPSULE BY MOUTH EVERY MORNING 90 capsule 1 024 2024 Discontinued Active Problems Problem Noted Date Diagnosed Date Generalized abdominal pain 06/21/2024 Assessment & Plan (06/21/2024 11:19 AM EDT): It could be related to mild diverticulosis,. He has diverticulitis. Other lab/pelvic CT scan follow-up results Order labs Advised regarding proper hydration, soft bland diet for the next 2 to 3 days and advance as tolerated. Take Tylenol as needed pain OA (osteoarthritis) 10/24/2023 Lumbar disc disease 10/24/2023 [...] Cath Jan 2014, s/p multiple stent at [facility], Dr Luo, Several stress tests, [...] 12/04/2011 Thyroid nodule 12/04/2011 Overview (05/02/2022): Dr Mauricio CHO Endo, L lobe nodule bx 11/2012, benign, [...] Encounters Date Type Department Care Team Description 06/21/2024 10:40 AM EDT Office Visit [facility] [address] [place] [address] Kendra Joya MD Generalized abdominal pain (Primary Dx); Low back pain with radiation 05/27/2024 Refill [facility] [address] [place] [address] Hanna Wheat MD Low back pain, unspecified back pain laterality, unspecified chronicity, unspecified whether sciatica present 05/25/2024 Refill [facility] [address] [place] [address] Hanna Wheat MD Type 2 diabetes mellitus with other specified complication ([facility]/HCC) 05/21/2024 Orders Only [facility] External Provider, [facility] 05/21/2024 Population Health Risk Score [facility] Department [address] [phone] Provider, Population Health Generic 05/13/2024 Patient Outreach [facility] [address] [place] [address] Hanna Wheat MD Care Coordination (ICP Care Plan) 05/04/2024 Refill [facility] [address] [place], [place] [phone] Hanna Wheat MD Primary osteoarthritis of both knees 04/28/2024 11:00 AM EST Office Visit [facility] OPTOMET[facility] [address] [place] [address] Aye [place], OD Presbyopia of both eyes (Primary Dx) 04/28/2024 Travel 04/28/2024 Refill [facility] [address] [place] [address] Hanna Wheat MD Type 2 diabetes mellitus with hyperglycemia, without long-term current use of insulin ([facility]) 04/23/2024 Refill [facility] [address] [place] [address] Hanna Wheat MD Type 2 diabetes mellitus with hyperglycemia, without long-term current use of insulin ([facility]) from Last 3 Months Immunizations Name Administration [...] the past 12 months, has t he [employer], gas, oil or water company threatened to [...] 06/21/2024 10:34 AM E DT Respiratory Rate 20 09/12/2023 9:33 AM EDT Oxygen Saturation 98% 06/21/2024 10:34 AM EDT Inhaled Oxygen Concentration - - Weight 113 kg (249 lb) 06/21/2024 10:34 AM EDT Height 175.3 cm (5' 9 ) 06/21/2024 10:34 AM EDT Body Mass Index 36.77 06/21/2024 10:34 AM EDT Plan of Treatment Health Maintenance Due Date Last Done Comments CT Colonography 1964 FIT DNA/Cologuard 1964 FIT 1964 FOBT 1965 HIV Screening 1965 Sigmoidoscopy 1964 Diabetes: Foot Exam 1974 Alcohol/Substance Use Screening 1976 Hepatitis C Screening 1982 Hepatitis A Vaccines (1 of 2 - Risk 2-dose series) 1983 Pneumococcal Vaccine: 50+ Years (3 of 3 [...] 05/16/2023, 05/16/19 24 SDOH Screening 09/01/2024 09/02/2023 Lipid Panel 05/21/2025 05/21/2024, 08/02/2020 Tobacco Screening 06/21/2025 06/21/2024 Eye Exam 03/19/2026 03/19/2024, 03/10, 03/19/2024, Additional [...] AM EDT Low back pain with radiation XR KNEE 3 VIEWS LEFT Routine 05/21/2024 4:27 PM EDT XR KNEE 3 VIEWS RIGHT Routine 05/21/2024 4:25 PM EDT LIPID PANEL WITH REFLEX TO DIRECT LDL Routine 05/21/2024 9:57 AM EDT Primary hypertension POCT GLYCATED HEMOGLOBIN, TOTAL Routine 09/12/2023 9:34 AM EDT Type 2 diabetes mellitus with hyperglycemia, without long-term current use of insulin ([facility]) ALBUMIN, RANDOM URINE W/CREATININE Routine 02/05/2021 2:07 PM EST HM COLONOSCOPY Routine 05/28/2020 from Last 3 Months or Most Recently Relevant to Health Maintenance Results * (ABNORMAL) CBC auto differential (06/21/2024 11:43 AM EDT) White Blood Count 8.8 4.8 - 10.8 X10*3/uL [facility] Red Blood Count 6.09(H) 4.60 - 5.80 X10*6/uL [facility] Hemoglobin 16.7 14.0 - 18.0 g/dl [facility] Hematocrit 51.3 42.0 - 52.0 % [facility] Mean Corpuscular Volume 84.2 80.0 - 98.0 fL [facility] Mean Corpuscular Hemoglobin 27.4 27.0 - 33.0 pg [facility] Mean Corpuscular HGB Conc 32.6 31.0 - 36.0 g/dl [facility] Red Cell Distribution Width 14.0 11.0 - 16.0 % [facility] Platelet Count 347 160 - 400 X10*3/uL [facility] Mean Platelet Volume 10.2 9.4 - 12.4 fL [facility] Neutrophils Percent Auto 46.7 45 - 73 % [facility] Imm Gran Pct Auto 0.3 0.0 - 0.4 % [facility] Lymphocytes Percent Auto 42.7(H) 20 - 40 % [facility] Monocytes Percent Auto 5.7 2 - 11 % [facility] Eosinophils Percent Auto 3.6 0 - 4 % [facility] Basophils Percent Auto 1.0 0 - 2 % [facility] NRBC Pct Auto 0.0 0.0 - 0.2 /100WBC [facility] Neutrophils Absolute Auto 4.1 2.0 - 8.3 x10*3/uL [facility] Imm Gran Abs Auto 0.03 0.00 - 0.03 X10*3/uL [facility] Lymphocytes Absolute Auto 3.8 1.2 - 4.9 X10*3/uL [facility] Monocytes Absolute Auto 0.5 0.1 - 1.2 X10*3/uL [facility] Eosinophils Absolute Auto 0.3 0.0 - 0.4 X10*3/uL [facility] Basophils Absolute Auto 0.1 0.0 - 0.2 X10*3/uL [facility] NRBC Abs Auto 0.000 0.0 - 0.012 X10*3/uL [facility] Blood Venous blood specimen / Unknown 06/21/2024 11:43 AM EDT 06/21/2024 1:04 PM EDT Kendra Joya MD LAB BLOOD ORDERABLES Fin al Result [facility] [address] [place] [phone] * POCT Urinalysis (06/21/2024 10:42 AM [...] CARE TEST ENTER /EDIT ORDERABLES Final Result * XR Knee 3 Views Left (05/21/2024 4:27 PM EDT) Anatomical Region Laterality Modality Lower Extremities, Knee Left Radiogra phic Imaging 05/21/2024 4:27 PM EDT Narrative 05/21/2024 4:27 PM EDT ? [facility] [place] [facility] ?[address] ?[place] [address] ?XRay Report ? Signed ? Patient: Tree,Brannon ?MR#: [id number] ?? 2111 ? : 1965 ?Acct:[id number] ? Age/Sex: 59 / M ?ADM Date: 05/21/24 ? Loc: HO.XRAY ? Attending Dr: Sangita Adhikari MD ? Ordering Physician: Sangita Adhikari MD ?? Date of Service: 05/21/24 ?? Procedure(s): XR knee LT 3V ?? Accession Number(s): [id number] ? cc: Sangita Adhikari MD; Hanna Wheat MD ? CLINICAL HISTORY: M17.0 - Bilateral primary osteoarthritis of knee ? 3 view bilateral knee 3 view Left knee ? Comparison: CR - KNEE LEFT 4 VIEWS [id number] - 06/24/15 10:31 EDT ? Findings: ?? Bones intact. No dislocations. ?? Tricompartmental periarticular osteophyte formation, indicating ?? osteoarthritis. ?? No joint effusion. ?? No radiopaque foreign body. ? IMPRESSION: ?? 1. No acute findings. ? This document has been electronically signed by: Aditya Tejada MD on ?? 05/21/2024 16:27:10 ? Dictated By: ?Aditya Tejada MD ? Signed By: ?<Electronically signed by Aditya Tejada MD in OV> ? 05/21/247 ? DD/ 26 ? TD/TT: 05/21/241626 ? Cafe Lead: ? Procedure Note Mitchell, Image - 05/21/2024 [place] [address] XRay Report Signed Patient: Jimmy Leavitt#: [id number] 2111 : 1965Acct:[id number] Age/Sex: 59 / MADM Date: 05/21/24 Loc: JING Attending Dr: Sangita Adhikari MD Ordering Physician: Sangita Adhikari MD Date of Service: 05/21/24 Procedure(s): XR knee LT 3V Accession Number(s): [id number] cc: Sangita Adhikari MD; Hanna Wheat MD CLINICAL HISTORY: M17.0 - Bilateral primary osteoarthritis of knee 3 view bilateral knee 3 view Left knee Comparison: CR - KNEE LEFT 4 VIEWS [id number] - 06/24/15 10:31 EDT Findings: Bones intact. No dislocations. Tricompartmental periarticular osteophyte formation, indicating osteoarthritis. No joint effusion. No radiopaque foreign body. IMPRESSION: 1. No acute findings. This document has been electronically signed by: Aditya Tejada MD on 05/21/2024 16:27:10 Dictated By: Aditya Tejada MD Signed By: <Electronically signed by Aditya Tejada MD in OV> 05/21/24 1627 DD/ 162 TD/TT: 05/21/24 162 Cafe Lead: [facility] External Provider IMG XR PROCEDURES Final Result * XR Knee 3 Views Right (05/21/2024 4:25 PM EDT) Anatomical Region Laterality Modality Lower Extremities, Knee Right Radiogra phic Imaging 05/21/2024 4:25 PM EDT Narrative 05/21/2024 4:26 PM EDT ? [facility] ?[address] ?[place] [address] ?XRay Report ? Signed ? Patient: Brannon Leavitt ?MR#: [id number] ?? 2111 ? : 1965 ?Acct:[id number] ? Age/Sex: 59 / M ?ADM Date: 05/21/24 ? Loc: HO.XRAY ? Attending Dr: Sangita Adhikari MD ? Ordering Physician: Sangita Adhikari MD ?? Date of Service: 05/21/24 ?? Procedure(s): XR knee RT 3V ?? Accession Number(s): [id number] ? cc: Sangita Adhikari MD; Hanna Wheat MD ? CLINICAL HISTORY: M17.0 - Bilateral primary osteoarthritis of knee ? 3 view Right knee ? Comparison: None ? Findings: ?? Bones intact. No dislocations. ?? Tricompartmental periarticular osteophyte formation, indicating ?? osteoarthritis. ?? No joint effusion. ?? No radiopaque foreign body. ? IMPRESSION: ?? 1. No acute findings. ? This document has been electronically signed by: Aditya Tejada MD on ?? 05/21/2024 16:25:28 ? Dictated By: ?Aditya Tejada MD ? Signed By: ?<Electronically signed by Aditya Tejada MD in OV> ? 05/21/24 1626 ? DD/ ? TD/TT: 05/21/24 1625 ? Cafe Lead: ? Procedure Note Mitchell, Image - 05/21/[address] [address] XRay Report Signed Patient: Jimmy Leavitt#: [id number] 2111 : 1965Acct:[id number] Age/Sex: 59 / MADM Date: 05/21/24 Loc: HO.XRAY Attending Dr: Sangita Adhikari MD Ordering Physician: Sangita Adhikari MD Date of Service: 05/21/24 Procedure(s): XR knee RT 3V Accession Number(s): [id number] cc: Sangita Adhikari MD; Hanna Wehat MD CLINICAL HISTORY: M17.0 - Bilateral primary osteoarthritis of knee 3 view Right knee Comparison: None Findings: Bones intact. No dislocations. Tricompartmental periarticular osteophyte formation, indicating osteoarthritis. No joint effusion. No radiopaque foreign body. IMPRESSION: 1. No acute findings. This document has been electronically signed by: Aditya Tejada MD on 05/21/2024 16:25:28 Dictated By: Aditya Tejada MD Signed By: <Electronically signed by Aditya Tejada MD in OV> 05/21/24 1626 DD/ 1625 TD/TT: 05/21/241624 Cafe Lead: us [facility] External Provider IMG XR PROCEDURES Final Result * (ABNORMAL) Lipid Panel with Reflex to Direct LDL (05/21/2024 9:57 AM EDT) Triglycerides 346(H) <150 mg/dL [facility] Comment:Desirable Triglyceri de: less than 150 mg/dLBorderline High Triglyceride 150-199 mg/dLHigh Triglyceride: 200-499 mg/dLVery High Triglyceride: greater than or equal to 5OO mg/dL Cholesterol 241(H) <200 mg/dL [facility] Comment:Desirable Cholestero l: less than 200 mg/dLBorderline High Cholesterol: 200-239 mg/dLHigh Cholesterol: greater than 239 mg/dL LDL Cholesterol Calculated 139(H) <100 mg/dL [facility] Comment:Desirable LDL: less than 100 mg/dLNear Optimal/Above Optimal LDL: 110- 129 mg/dLBorderline High LDL: 130-159 mg/dLHigh LDL: 160-189 mg/dLVery High LDL: greater than or equal to 190 mg/dL HDL Cholesterol 33(L) >40 mg/dL [facility] Comment:Desirable HDL: great er than 40 mg/dL Note: This HDL assay may give artificially low results in patients with liver disease. Blood 05/21/2024 9:57 AM EDT 05/21/2024 9:57 AM EDT Hanna Kimball MD LAB BLOOD ORDERABLES Final Result [facility] [address] [place] [phone] * (ABNORMAL) POCT HGB A1C (09/12/2023 9:34 AM EDT) Pathologist [facility] Hemoglobin A1C 6.4(A) 4.0 - 6.0 % QC Media Lot # [id number] Lot# Expiration Date Blood 09/12/2023 9:34 AM EDT Hanna Kimball MD POINT OF CARE TEST EN TER/EDIT ORDERABLES Final Result * ALBUMIN, RANDOM URINE W/CREATININE (02/05/2021 2:07 PM EST) Pathologist [facility] Microalbumin Urine 3.7 See Note: mg/dL [facility] Comment: Reference Range: ?? Reference [...] Creatinine, Urine 137 20 - 320 mg/dL [facility] 02/05/2021 2:07 PM EST Hanna Kimball MD LAB URINE ORDERABLES Final Result [facility] [address] [place] [address], * Hm Colonoscopy (05/28/2020) Historical Provider HEALTH MAINTENANCE Final Result from Last 3 Months or Most Recently Relevant to Health Maintenance Insurance [facility] C3 Care Teams Assistant Technician Relationship Specialty Start Date End Date Hanna Wheat MD [address] [place] [phone] PCP - General Family Medicine 10/30/18 Concetta Garcai Process Equipment OperatorLegal Officer 11/28/22 Concetta Garcia Process Equipment OperatorLegal Officer 05/13/24
--- OUTSIDE RECORDS SUMMARY | 2024-06-21 13:43 | XMS_ITS | Encounter Summary ---
Author Organization [employer] Address [address] [facility] [address] [place] [address] Care Team Providers Care Manager Apple Name Role Phone Hanna Wheat MD Primary Care Provide r Reason for Visit * Reason Comments Med Refill Encounter Details Date Type Department Care Team ([facility] st Contact Info) Description 12/09/2023 Refill [facility] [address] [place], [place] [phone] Hanna Wheat MD [address] [place], [place] [phone] Primary osteoarthritis of both knees Social History [...] documented as of this encounter Care Teams Manager Apple Relationship Specialty Start Date End Date Hanna Wheat MD [address] [place] [phone] PCP - General Family Medicine 10/30/18 Concetta Garcia Preschool Substitute TeacherHistological Illustrator 11/28/22 Concetta Garcia Preschool Substitute TeacherHistological Illustrator 05/13/24 documented as of this encounter
[2024-06-21 13:49] LABS: Albumin Level 4.5 g/dL (3.5-5.0); Alkaline Phosphatase 117 U/L (39-117); Anion Gap 12 (12-20); Aspartate Amino Transferase 33 U/L (5-37); Bilirubin Total 0.4 mg/dL (0.0-1.0); Blood Urea Nitrogen 20 mg/dL (9-16); Calcium 10.1 mg/dL (8.4-10.2); Carbon Dioxide 24 mmol/L (22-29); Chloride 106 mmol/L (96-108); Estimated Glomerular Filt Rate > 60; Glucose Random 132 mg/dL (60-115); Potassium 3.9 mmol/L (3.3-5.1); Sodium 138 mmol/L (135-145); Total Protein 8.2 g/dL (6.5-8.0)
[2024-06-21 13:59] LABS: Alanine Aminotransferase 45 U/L (0-40)
== END 2024-06-21 11:42 | disposition home or self-care (01) ==
LOC: HO.HHCL 11:41
PROVIDERS: Visit Provider Internal Medicine
DX: R10.84 Generalized abdominal pain (principal)
CPT/HCPCS: 36415; 80053; 85025

== ENCOUNTER 2024-07-05 11:30 | Outpatient (REF) | payer MEDICAID, SELFPAY ==
[2024-07-05 13:53] LABS: Alanine Aminotransferase 47 U/L (0-40); Albumin Level 4.5 g/dL (3.5-5.0); Alkaline Phosphatase 100 U/L (39-117); Aspartate Amino Transferase 35 U/L (5-37); Bilirubin Direct 0.1 mg/dL (0.0-0.5); Bilirubin Total 0.5 mg/dL (0.0-1.0); Blood Urea Nitrogen 23 mg/dL (9-16); Estimated Glomerular Filt Rate > 60; Total Protein 8.1 g/dL (6.5-8.0)
--- OUTSIDE RECORDS SUMMARY | 2024-07-05 13:56 | XMS_ITS | Encounter Summary ---
Author Organization [facility] Address [address] [place] [address] [address] [place] [address] Care Team Providers Care Chainman Name Role Phone Hanna Wheat MD Primary Care Provide r Reason for Visit * Reason Comments Med Refill Encounter Details Date Type Department Care Team ([facility] st Contact Info) Description 08/24/2022 Refill [facility] MED[facility] [address] [place], [place] [phone] Kendra Joya MD [address] [place], [place] [phone] Atherosclerosis of coronary artery of [place] heart with stable angina pectoris, unspecified vessel [...] Diagnoses Diagnosis Atherosclerosis of coronary artery of [place] heart with stable angina pectoris, unspecified vessel or lesion type (CMS/[facility]) documented in this encounter Care Teams Chainman Relationship Specialty Start Date End Date Hanna Wheat MD [address] [place] [address] PCP - General Family Medicine 10/30/18 Concetta Garcia [employer] Helper MachineShipyard Painting Supervisor 11/28/22 Concetta Garcia [employer] Helper MachineShipyard Painting Supervisor 05/13/24 documented as of this encounter
--- OUTSIDE RECORDS SUMMARY | 2024-07-05 13:56 | XMS_ITS | Encounter Summary ---
Author Organization [employer] Address [address] [place] [address] Care Team Providers Care Assistance Coordinator Name Role Phone Hanna Wheat MD Primary Care Provide r Encounter Details Date Type Department Care Team (Late st Contact Info) Description 07/05/2024 11:20 AM EDT Office Visit [facility] [address] [place], [place] [phone] Kendra Joya MD [address] [place], [place] [phone] Acute bilateral thoracic back pain (Primary Dx); Pain of upper abdomen Social History Tobacco Use Types Packs/Day Years [...] Sign Reading Time Taken Comments Blood Pressure 137/86 07/05/2024 10:47 AM EDT Pulse 74 07/05/2024 10:47 AM EDT Temperature 36.7 ??C (98.1 ??F) 07/05/2024 10:47 AM E DT Respiratory Rate 18 07/05/2024 10:47 AM EDT Oxygen Saturation 96% 07/05/2024 10:47 AM EDT Inhaled Oxygen Concentration - - Weight 112 kg (247 lb) 07/05/2024 10:47 AM EDT Height - - Body Mass Index 36.48 06/21/2024 10:34 AM EDT documented in this encounter Progress Notes * Kendra Joya MD - 07/05/2024 11:20 AM EDT SUBJECTIVE: Brannon Leavitt is a 59 y.o. year old male who presents for Walk In Center/abd pain . Denies recent illness, injury, or hospitalization. Acute Concerns: Patient complains of persistent bilateral flank and back pain for the past 2 or 3 weeks, pain is radiated to left lower quadrant and, not exacerbated by any specific movement but patient reports limitation to lie on his back, turn over or leans over. He does not have any fever, dysuria, diarrhea, constipation. He has not had any recent falls. Labs done last week showed minimally elevated LFTs, otherwise normal CMP and CBC. CT scan of the abdomen has not been done yet. 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) Diverticulosis Type 2 diabetes mellitus with hyperglycemia, without long-term current use of insulin (CMS/HCC) Gastroesophageal reflux disease Hemorrhoids Hypercholesterolemia Primary osteoarthritis [...] migrainosus, not intractable GI (acute kidney injury) (CMS/[facility]) Encounter for preventative adult health care examination Bilateral carpal tunnel syndrome Onychomycosis Primary osteoarthritis of both knees Muscle spasm OA (osteoarthritis) Lumbar disc disease Generalized abdominal pain Pain of upper abdomen Acute bilateral thoracic back pain No family history on file. Review [...] Genitourinary: Negative for dysuria and frequency. Musculoskeletal: Positive for back pain and gait problem. Negative for arthralgias and neck pain. Neurological: Negative for dizziness, numbness and headaches. Psychiatric/Behavioral: Negative for agitation. OBJECTIVE: Vitals: 07/05/24 1047 BP: 137/86 Pulse: 74 Resp: 18 Temp: 98.1 ??F (36.7 ??C) SpO2: 96% Physical Exam Constitutional: Appearance: Normal appearance. HENT: [...] Palpations: Abdomen is soft. Tenderness: There is no abdominal tenderness. There is right CVA tenderness and left CVA tenderness. Comments: Flank pain bl Musculoskeletal: General: No tenderness. Normal range of motion. Cervical back: Normal range of motion. No tenderness. Skin: General: Skin is warm. Neurological: General: No focal deficit present. Mental Status: He is alert and oriented to person, place, and time. Psychiatric: Mood and Affect: Mood normal. Office Visit on 07/05/2024 Component Date Value Ref Range Status Color, UA 07/05/2024 Yellow Final Clarity, UA 07/05/2024 Clear Final Glucose, UA 07/05/2024 3+ 500+++ Final 500MG Bilirubin, UA 07/05/2024 Negative Final Ketones, UA 07/05/2024 Negative Final Spec Grav, UA 07/05/2024 1.015 Final Blood, UA 07/05/2024 Negative Negative, None Detected Final pH, UA 07/05/2024 7.0 Final Protein, UA 07/05/2024 Negative Final Urobilinogen, UA 07/05/2024 0.2 Final Leukocytes, UA 07/05/2024 Negative Negative, Rare, Trace Final Nitrite, UA 07/05/2024 Negative Negative, None Detected Final Appearance, UA 07/05/2024 OK Final Problem List Items Addressed This Visit Acute bilateral thoracic back pain - Primary Patient has CVA tenderness bilateral, most likely kidney stones. CT scan of abdomen scheduled in 2 days, he will have labs done today. Order with instructions givento patient today, he will hold DM meds on the day of the test Will repeat LFTs due to previous elevation of LFTs. Advised regarding increased water intake, take Tylenol/ibuprofen or oxycodone as needed pain. Advised regarding side effects including constipation, nausea, urinary retention. Continue Flomax nightly Relevant Medications oxyCODONE (Roxicodone) 5 MG immediate release tablet Pain of upper abdomen Most likely kidney stones, see above and follow-up CT scan results Advised to stop Trulicity until abdominal pain resolves Advised regarding increase water intake and continue Flomax plus oxycodone as needed pain Relevant Orders POCT urinalysis dipstick manually resulted (Completed) BUN (Blood Urea Nitrogen) Creatinine, Serum Hepatic Function Panel Follow Up: Current Outpatient Medications on File Prior to Visit Medication Sig Dispense Refill allopurinol (Zyloprim) 100 MG tablet Take 100 [...] 6 tablet 0 Blood Glucose Monitoring Suppl (FreeStyle Lite) device Inject 1 each under the [...] MORNING 90 capsule 1 TRUEplus Lancets 33G [facility] [place] TEST BLOOD SUGAR TWICE DAILY Trulicity 3 MG/0.5ML solution auto-injector INJECT ONE PEN (= 3MG) SUBCUTANEOUSLY ONCE A WEEK DIRECTED 2 mL 3 Wheat Dextrin (benefiber drink mix) packet MIX 1 PACKET IN 4 OUNCES IN WATER OR JUICE AND DRINK DAILY DIRECTED [DISCONTINUED] acetaminophen (Tylenol 8 Hour) 650 MG ER tablet TAKE 2 TABLETS BY MOUTH EVERY 8 HOURS NEEDED FOR MILD PAIN 40 tablet 1 No current facility-administered medications on file prior to visit. documented in this encounter Miscellaneous Notes * Assessment & Plan Note - Kendra Joya MD - 07/05/2024 11:27 AM EDT Associated Problem(s): Pain of upper abdomen Most likely kidney stones, see above and follow-up CT scan results Advised to stop Trulicity until abdominal pain resolves Advised regarding increase water intake and continue Flomax plus oxycodone as needed pain * Assessment & Plan Note - Kendra Joya MD - 07/05/2024 11:23 AM EDT Associated Problem(s): Acute bilateral thoracic back pain Patient has CVA tenderness bilateral, most likely kidney stones. CT scan of abdomen scheduled in 2 days, he will have labs done today. Order with instructions givento patient today, he will hold DM meds on the day of the test Will repeat LFTs due to previous elevation of LFTs. Advised regarding increased water intake, take Tylenol/ibuprofen or oxycodone as needed pain. Advised regarding side effects including constipation, nausea, urinary retention. Continue Flomax nightly documented in this encounter Plan of Treatment Not on file documented as of this encounter Procedures Procedure Name Priority Date/Time Associated Diagnosis Comments CREATININE, SERUM Routine 07/05/2024 11: 33 AM EDT Pain of upper abdomen UREA NITROGEN (BUN) Routine 07/05/2024 1 1:33 AM EDT Pain of upper abdomen HEPATIC FUNCTION PANEL Routine 07/05/2024 11:33 AM EDT Pain of upper abdomen POCT URINALYSIS DIPSTICK Routine 07/05/2024 11:06 AM EDT Pain of upper abdomen documented in this encounter Results * (ABNORMAL) Hepatic Function Panel (07/05/2024 11:33 AM EDT) Bilirubin, Total 0.5 0.0 - 1.0 mg/dL [facility] Bilirubin, Direct 0.1 0.0 - 0.5 mg/dL [facility] Aspartate Amino Transferase 35 5 - 37 U/L [facility] Alanine Aminotransferase 47(H) 0 - 40 U/L [facility] Total Protein 8.1(H) 6.5 - 8.0 g/dL [facility] Albumin Level 4.5 3.5 - 5.0 g/dL [facility] Alkaline Phosphatase 100 39 - 117 U/L [facility] Blood Venous blood specimen / Unknown 07/05/2024 11:33 AM EDT 07/05/2024 1:07 PM EDT us Kendra Joya MD LAB BLOOD ORDERABLES Fin al Result Performing Organization Address City/[facility]/ZIP Co de Phone Number [facility] [address] [place] [phone] * Creatinine, Serum (07/05/2024 11:33 AM EDT) Creatinine, Serum 0.98 0.5 - 1.4 mg/dL [facility] Estimated Glomerular Filt Rate >60 [facility] Comment:Chronic Kidney Disea se: Estimated GFR < 60 mL/min/1.32c2Poxxxe Kidney Disease: Estimated GFR < 15 mL/min/1.73m2 Blood Venous blood specimen / Unknown 07/05/2024 11:33 AM EDT 07/05/2024 1:07 PM EDT us Kendra Joya MD LAB BLOOD ORDERABLES Fin al Result [facility] [address] [place] [phone] * (ABNORMAL) BUN (Blood Urea Nitrogen) (07/05/2024 11:33 AM EDT) Urea Nitrogen (BUN) 23(H) 9 - 16 mg/dL [facility] Blood Venous blood specimen / Unknown 07/05/2024 11:33 AM EDT 07/05/2024 1:07 PM EDT us Kendra Joya MD LAB BLOOD ORDERABLES Fin al Result [facility] [address] [place] [phone] * POCT urinalysis dipstick manually resulted (07/05/2024 11:06 AM EDT) Color, UA Yellow Clarity, UA Clear Glucose, UA 3+ 500+++ Comment:500MG Bilirubin, UA Negative Ketones, UA Negative Spec Grav, UA 1.015 Blood, UA Negative Negative, None Detected pH, UA 7.0 Protein, UA Negative Urobilinogen, UA 0.2 Leukocytes, UA Negative Negative, Rare, Trace Nitrite, UA Negative Negative, None Detected Appearance, UA OK Urine 07/05/2024 11:0 6 AM EDT Kendra Joya MD POINT OF CARE TEST ENTER /EDIT ORDERABLES Final Result documented in this encounter Visit Diagnoses Diagnosis Acute bilateral thoracic back pain- Primary Pain of upper abdomen documented in this encounter Additional Health Concerns Assessment Noted Time PHQ-9 Depression Total Score: 0 05/16/19 24 9:06 AM EST documented as of this encounter Care Teams Assistance Coordinator Relationship Specialty Start Date End Date Hanna Wheat MD [address] [place] [phone] PCP - General Family Medicine 10/30/18 Concetta Garcia [employer] Convert[employer] OperatorField Artillery Senior Sergeant 11/28/22 Concetta Garcia [employer] Convertor OperatorField Artillery Senior Sergeant 05/13/24 documented as of this encounter
--- OUTSIDE RECORDS SUMMARY | 2024-07-05 13:56 | XMS_ITS | Encounter Summary ---
Author Organization [employer] Address [address] [place] [address] 7[place], [place] [address] Care Team Providers Care Chief Informatics Officer Name Role Phone Hanna Wheat MD Primary Care Provide r Encounter Details Date Type Department Care Team (Late st Contact Info) Description 07/07/2022 Orders Only [facility] [address] [place] [phone] Kendra Joya MD [address] [place] [phone] Social History Tobacco Use Types Packs/Day Years [...] on filedocumented in this encounter Care Teams Chief Informatics Officer Relationship Specialty Start Date End Date Hanna Wheat MD [address] [place] [phone] PCP - General Family Medicine 10/30/18 Concetta Garcia Lean [employer]iSec[employer] Sales Associate 11/28/22 Concetta Garcia [employer] Sales Associate 05/13/24 documented as of this encounter
--- OUTSIDE RECORDS SUMMARY | 2024-07-05 13:56 | XMS_ITS | Encounter Summary ---
Author Organization [facility] Address [address] [place] [address] [address], [place] [address] Care Team Providers Care Html Web Developer Name Role Phone Hanna Wheat MD Primary Care Provide r Reason for Visit * Reason Comments Med Refill Encounter Details Date Type Department Care Team ([facility] st Contact Info) Description 08/24/2022 Refill [facility] [address] [place], [place] [phone] Ellie Wheeler MD [address] [place], [place] [phone] Type 2 diabetes mellitus without complication, unspecified whether supervisor long goods insulin use ([facility]); Dyslipidemia Social History Tobacco Use [...] 2 diabetes mellitus without complication, unspecified whether supervisor long goods insulin use (CMS/[facility]) Dyslipidemia Other and unspecified hyperlipidemia documented in this encounter Care Teams Html Web Developer Relationship Specialty Start Date End Date Hanna Wheat MD [address] [place] [phone] PCP - General Family Medicine 10/30/18 Concetta Garcia Air Bag CurerPersonal Injury Law Specialist 11/28/22 Concetta Garcia Air Bag CurerPersonal Injury Law Specialist 05/13/24 documented as of this encounter
--- OUTSIDE RECORDS SUMMARY | 2024-07-05 13:56 | XMS_ITS | Encounter Summary ---
Author Organization [facility] Address [address] [place] [address] [address], [place] [address] Care Team Providers Care Director Loan Name Role Phone Hanna Wheat MD Primary Care Provide r Reason for Visit * Reason Comments Med Refill Encounter Details Date Type Department Care Team ([facility] st Contact Info) Description 11/06/2022 Refill [facility] [address] [place], [place] [phone] Shukri Carney MD [address] [place] [address] Social History Tobacco Use Types Packs/Day Years [...] on filedocumented in this encounter Care Teams Director Loan Relationship Specialty Start Date End Date Hanna Wheat MD [address] [place], [place] [phone] PCP - General Family Medicine 10/30/18 Concetta Garcia Merchandise CollectorDriller Portable 11/28/22 Concetta Garcia Merchandise CollectorDriller Portable 05/13/24 documented as of this encounter
--- OUTSIDE RECORDS SUMMARY | 2024-07-05 13:56 | XMS_ITS | Clinical Summary ---
Author Organization [facility] Address [address] [place] [address] Care Team Providers Care Administrative Support Technician Name Role Phone Hanna Wheat MD Primary Care Provide r Surgical History Surgery Date Site/Laterality Comments CARDIAC CATHETERIZATION PROCEDURE: HISTORICAL CARDIAC CATH; COMMENT: Cath Jan 2014 s/p mult stents at [facility] APPENDECTOMY PROCEDURE: HISTORICAL APPENDECTOMY HERNIA REPAIR PROCEDURE: HISTORICAL HERNIA REPAIR/UMB OTHER SURGICAL HISTORY PROCEDURE: ---- OTHER ----; COMMENT: sinus surgery COLONOSCOPY 2014 PROCEDURE: HISTORICAL COLONOSCOPY; COMMENT: repeat in 5 yrs, per patient, at [facility] Medical History Medical History Date Comments Atrial fibrillation (CMS/HCC V24, CMS/HCC V28) 11/27/2015 DX:Atrial fibrillation ([facility]) ; COMMENT: During hospital admission at [facility] Nov 2015, reverted to sinus wiith meds, f/u Cardio at [place], will have 30day loop recorder, off anticoagulation per cardiology CAD (coronary artery disease) 10/27/2015 DX :CAD (coronary artery disease); COMMENT: Cath Jan 2014, s/p multiple stent at [facility], Dr Luo, Several stress tests, echos [...] age to complete this topic Care Teams Administrative Support Technician Relationship Specialty Start Date End Date Hanna Wheat MD [address] [place] [phone] PCP - General 03/20/23
--- OUTSIDE RECORDS SUMMARY | 2024-07-05 13:56 | XMS_ITS | Clinical Summary ---
Author Organization [facility] Address [address] [place] [address] Care Team Providers Care Assistant Golf Course Superintendent Name Role Phone Hanna Wheat MD Primary [...] DRINK DAILY DIRECTED Active colchicine 0.6 MG tabletIndication s:Low back pain, unspecified back pain laterality, unspecified chronicity, unspecified whether sciatica present take one daily 30 tablet Active methocarbamol (Robaxin) 750 MG tabletIndication s:Muscle spasm Take 1 tablet (750 mg) by mouth 4 times daily for 10 days. 40 tablet Active Blood Glucose Monitoring Suppl (FreeStyle Lite) deviceIndication s:Type 2 diabetes mellitus without complication, without long-term current use of insulin ([facility]) Inject 1 each under the [...] 024 2024 Active diclofenac sodium 3 % gelIndications:P rimary osteoarthritis of both knees APPLY 2 GRAMS TOPICALLY TWICE DAILY 100 g 1 024 Active tamsulosin (Flomax) 0.4 MG 24 hr capsule TAKE 1 CAPSULE BY MOUTH EVERY MORNING 90 capsule 1 Active amLODIPine (Norvasc) 10 MG tabletIndication s:Primary hypertension TAKE 1 TABLET BY MOUTH EVERYDAY AT NOON 90 tablet 1 Active metFORMIN (Glucophage) 500 MG tabletIndication s:Type 2 diabetes mellitus without complication, unspecified whether residential insulin use (CMS/HCC) TAKE 1 TABLET BY MOUTH TWICE DAILY IN THE MORNING AND IN THE EVENING 180 tablet 1 024 Active metoprolol tartrate (Lopressor) 50 MG tabletIndication s: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, unspecified vessel or lesion type ([facility]) TAKE 1 AND 1/2 TABLETS BY MOUTH TWICE DAILY IN THE MORNING AND IN THE EVENING 270 tablet 1 024 Active glipiZIDE XL (Glucotrol XL) 10 MG 24 hr tabletIndication s:Type 2 diabetes mellitus without complication, unspecified whether terminal make up operator insulin use ([facility]) TAKE 1 TABLET BY MOUTH TWICE DAILY IN THE MORNING AND IN THE EVENING WITH MEALS 180 tablet 1 Active fenofibrate (Triglide) 160 MG tabletIndication s:Dyslipidemia TAKE 1 TABLET BY MOUTH EVERY EVENING (for cholesterol) 90 tablet 1 024 Active niacin (Niaspan) 500 MG ER tabletIndication s:Mixed hyperlipidemia TAKE 1 TABLET BY MOUTH AT BEDTIME 90 tablet 1 024 Active atorvastatin (Lipitor) 80 MG tabletIndication s:Mixed hyperlipidemia TAKE 1 TABLET BY MOUTH AT BEDTIME 90 tablet 1 024 Active aspirin (Aspirin Low Dose) 81 MG EC tablet TAKE 1 TABLET BY MOUTH EVERY MORNING 90 tablet 1 024 Active losartan (Cozaar) 100 MG tabletIndication s:Primary hypertension,Typ e 2 diabetes mellitus with hyperglycemia, without long-term current use of insulin ([facility]) TAKE 1 TABLET BY MOUTH EVERY MORNING [...] mouth at bedtime. Active FREESTYLE LITE test stripIndications :Type 2 diabetes mellitus with hyperglycemia, without long-term current use of insulin ([facility]) USE DIRECTED TO TEST BLOOD SUGAR TWICE DAILY 50 strip 11 Active empagliflozin (Jardiance) 10 MGIndications:Ty pe 2 diabetes mellitus with hyperglycemia, without long-term current use of insulin ([facility]) TAKE 1 TABLET BY MOUTH EVERY MORNING 90 tablet 1 Active Trulicity 3 MG/0.5ML solution auto-injectorInd ications:Type 2 diabetes mellitus with other specified complication ([facility]) INJECT ONE PEN (= 3MG) SUBCUTANEOUSLY ONCE A WEEK DIRECTED 2 mL 3 Active cholecalciferol (D3 Super Strength) 50 MCG (2000 UT) capsuleIndicatio ns:Low back pain, unspecified back pain laterality, unspecified chronicity, unspecified whether sciatica present TAKE 1 CAPSULE BY MOUTH EVERY MORNING 90 capsule 1 Active oxyCODONE (Roxicodone) 5 MG immediate release tabletIndication s:Acute bilateral thoracic back pain Take 1 tablet (5 mg) by mouth every 6 (six) hours if needed for severe pain for up to 5 days. 15 tablet 025 2024 Active acetaminophen (Tylenol 8 Hour) 650 MG ER tablet TAKE 2 TABLETS BY MOUTH EVERY 8 HOURS NEEDED FOR MILD PAIN 40 tablet 1 Active acetaminophen (Tylenol 8 Hour) 650 MG ER tabletIndication s:Primary osteoarthritis of both knees TAKE 2 TABLETS BY MOUTH EVERY 8 HOURS NEEDED FOR MILD PAIN 40 tablet 1 025 2024 Discontinued(R eorder (will not trigger notification to Pharmacy)) Active Problems Problem Noted Date Diagnosed Date Pain of upper abdomen 07/05/2024 Assessment & Plan (07/05/2024 11:27 AM EDT): Most likely kidney stones, see above and follow-up CT scan results Advised to stop Trulicity until abdominal pain resolves Advised regarding increase water intake and continue Flomax plus oxycodone as needed pain Acute bilateral thoracic back pain 07/05/2024 Assessment & Plan (07/05/2024 11:23 AM EDT): Patient has CVA tenderness bilateral, most likely kidney stones. CT scan of abdomen scheduled in 2 days, he will have labs done today. Order with instructions given to patient today, he will hold DM meds on the day of the test Will repeat LFTs due to previous elevation of LFTs. Advised regarding increased water intake, take Tylenol/ibuprofen or oxycodone as needed pain. Advised regarding side effects including constipation, nausea, urinary retention. Continue Flomax nightly Generalized abdominal pain 06/21/2024 Assessment & Plan [...] 2014, s/p multiple stent at [facility], Dr Luo, Several stress tests, echos [...] Encounters Date Type Department Care Team Description 07/05/2024 11:20 AM EDT Office Visit [facility] [address] [place] [phone] Kendra Joya MD Acute bilateral thoracic back pain (Primary Dx); Pain of upper abdomen 06/29/2024 Telephone [employer] [address] [place] [address] Kendra Joya MD 06/21/2024 10:40 AM EDT Office Visit [facility] [address] [place] [address] Kendra Joya MD Generalized abdominal pain (Primary Dx); Low back pain with radiation 05/27/2024 Refill [facility] [address] [place] [address] Hanna Wheat MD Low back pain, unspecified back pain laterality, unspecified chronicity, unspecified whether sciatica present 05/25/2024 Refill [facility] [address] [place] [address] Hanna Wheat MD Type 2 diabetes mellitus with other specified complication (CMS/HCC) 05/21/2024 Orders Only [facility] External Provider, [facility] 05/21/2024 Population Health Risk Score Community [facility] () Department [address] [place] [phone] Provider, Population Health Generic 05/13/2024 Patient Outreach [facility] [address] [place] [address] Hanna Wheat MD Care Coordination (ICP Care Plan) 05/04/2024 Refill [facility] [address] [place] [address] Hanna Wheat MD Primary osteoarthritis of both knees 04/28/2024 11:00 AM EST Office Visit [facility] [address] [place] [address] Abdiel, Aye, OD Presbyopia of both eyes (Primary Dx) 04/28/2024 Travel 04/28/2024 Refill [facility] [address] [place], [place] [phone] Hanna Wheat MD Type 2 diabetes mellitus with hyperglycemia, without long-term current use of insulin (CMS/HCC) 04/23/2024 Refill [facility] [address] [place] [address] Hanna Wheat MD Type 2 diabetes mellitus with hyperglycemia, without long-term current use of insulin ([facility]) from Last 3 Months Immunizations [...] (247 lb) 07/05/2024 10:47 AM EDT Height 175.3 cm (5' 9 ) 06/21/2024 10:34 AM EDT Body Mass Index 36.48 06/21/2024 10:34 AM EDT Plan of Treatment [...] 05/15/2024 05/16/2023, 05/16/19 SDOH Screening 09/01/2024 09/02/2023 Lipid Panel 05/21/2025 05/21/2024, 08/02/2020 Tobacco Screening 06/21/2025 06/21/2024 Eye Exam 03/19/2026 03/19/2024, 03/10, 03/19/2024, Additional history exists DTaP/Tdap/Td Vaccines (3 - Td or Tdap) 08/19/2028 08/19/2018, 10/08/2016, 08/16/2011, Additional history exists Hepatitis B Vaccines Completed 08/14/2022, 05/29/19 Zoster [...] Procedure Name Priority Date/Time Associated Diagnosis Comments HEPATIC FUNCTION PANEL Routine 07/05/2024 11:33 AM EDT Pain of upper abdomen CREATININE, SERUM Routine 07/05/2024 11: 33 AM EDT Pain of upper abdomen UREA NITROGEN (BUN) Routine 07/05/2024 1 1:33 AM EDT Pain of upper abdomen POCT URINALYSIS DIPSTICK Routine 07/05/2024 11:06 AM EDT Pain of upper abdomen COMPREHENSIVE METABOLIC PANEL Routine 06/21/2024 11:43 AM EDT Generalized abdominal pain CBC WITH AUTO DIFFERENTIAL Routine 06/21/2024 11:43 [...] hyperglycemia, without long-term current use of insulin ([facility]) ALBUMIN, RANDOM URINE W/CREATININE Routine 02/05/2021 2:07 PM EST HM COLONOSCOPY Routine 05/28/2020 from Last 3 Months or Most Recently Relevant to Health Maintenance Results * Creatinine, Serum (07/05/2024 11:33 AM EDT) Creatinine, Serum 0.98 0.5 - 1.4 mg/dL [facility] Estimated Glomerular Filt Rate >60 [facility] Comment:Chronic Kidney Disea se: Estimated GFR < 60 mL/min/1.37d9Edjyhd Kidney Disease: Estimated GFR < 15 mL/min/1.73m2 Blood Venous blood specimen / Unknown 07/05/2024 11:33 AM EDT 07/05/2024 1:07 PM EDT Kendra Joya MD LAB BLOOD ORDERABLES Fin al Result Performing Organization Address [facility] Co de Phone Number [facility] [address] [place] [phone] * (ABNORMAL) BUN (Blood Urea Nitrogen) (07/05/2024 11:33 AM EDT) Urea Nitrogen (BUN) 23(H) 9 - 16 mg/dL [facility] Blood Venous blood specimen / Unknown 07/05/2024 11:33 AM EDT 07/05/2024 1:07 PM EDT Kendra Joya MD LAB BLOOD ORDERABLES Fin al Result Performing Organization Address [facility] Co de Phone Number [facility] [address] [place] [phone] * (ABNORMAL) Hepatic Function Panel (07/05/2024 11:33 AM EDT) Bilirubin, Total 0.5 0.0 - 1.0 mg/dL [facility] Bilirubin, Direct 0.1 0.0 - 0.5 mg/dL [facility] Aspartate Amino Transferase 35 5 - 37 U/L [facility] Alanine Aminotransferase 47(H) 0 - 40 U/L [facility] Total Protein 8.1(H) 6.5 - 8.0 g/dL [facility] Albumin Level 4.5 3.5 - 5.0 g/dL [facility] Alkaline Phosphatase 100 39 - 117 U/L [facility] Blood Venous blood specimen / Unknown 07/05/2024 11:33 AM EDT 07/05/2024 1:07 PM EDT Kendra Joya MD LAB BLOOD ORDERABLES Fin al Result [facility] [address] [place] [phone] * POCT urinalysis dipstick manually resulted (07/05/2024 11:06 AM EDT) Only the most recent of2 resultswithin the time period is included. Color, UA Yellow Clarity, UA Clear Glucose, [...] TEST ENTER /EDIT ORDERABLES Final Result * (ABNORMAL) CBC auto differential (06/21/2024 11:43 AM EDT) White Blood Count 8.8 4.8 - 10.8 X10*3/uL [facility] Red Blood Count 6.09(H) 4.60 - 5.80 X10*6/uL [facility] Hemoglobin 16.7 14.0 - 18.0 g/dl [facility] Hematocrit 51.3 42.0 - 52.0 % [facility] Mean Corpuscular Volume 84.2 80.0 - 98.0 fL [facility] Mean Corpuscular Hemoglobin 27.4 27.0 - 33.0 pg [facility] Mean Corpuscular HGB Conc 32.6 31.0 - 36.0 g/dl [facility] Red Cell Distribution Width 14.0 11.0 - 16.0 % [facility] Platelet Count 347 160 - 400 X10*3/uL [facility] Mean Platelet Volume 10.2 9.4 - 12.4 fL [facility] Neutrophils Percent Auto 46.7 45 - 73 % [facility] Imm Gran Pct Auto 0.3 0.0 - 0.4 % [facility] Lymphocytes Percent Auto 42.7(H) 20 - 40 % [facility] Monocytes Percent Auto 5.7 2 - 11 % [facility] Eosinophils Percent Auto 3.6 0 - 4 % [facility] Basophils Percent Auto 1.0 0 - 2 % [facility] NRBC Pct Auto 0.0 0.0 - 0.2 /100WBC [facility] Neutrophils Absolute Auto 4.1 2.0 - 8.3 x10*3/uL [facility] Imm Gran Abs Auto 0.03 0.00 - 0.03 X10*3/uL [facility] Lymphocytes Absolute Auto 3.8 1.2 - 4.9 X10*3/uL [facility] Monocytes Absolute Auto 0.5 0.1 - 1.2 X10*3/uL [facility] Eosinophils Absolute Auto 0.3 0.0 - 0.4 X10*3/uL [facility] Basophils Absolute Auto 0.1 0.0 - 0.2 X10*3/uL [facility] NRBC Abs Auto 0.000 0.0 - 0.012 X10*3/uL [facility] Blood Venous blood specimen / Unknown 06/21/2024 11:43 AM EDT 06/21/2024 1:04 PM EDT us Kendra Joya MD LAB BLOOD ORDERABLES Fin al Result [facility] [address] [place] [phone] * (ABNORMAL) Comprehensive Metabolic Panel (06/21/2024 11:43 AM EDT) Sodium 138 135 - 145 mmol/L [facility] Potassium 3.9 3.3 - 5.1 mmol/L [facility] Chloride 106 96 - 108 mmol/L [facility] Carbon Dioxide 24 22 - 29 mmol/L [facility] Anion Gap 12 12 - 20 [facility] Urea Nitrogen (BUN) 20(H) 9 - 16 mg/dL [facility] Creatinine, Serum 1.01 0.5 - 1.4 mg/dL [facility] Estimated Glomerular Filt Rate >60 [facility] Comment:Chronic Kidney Disea se: Estimated GFR < 60 mL/min/1.61m0Chhjij Kidney Disease: Estimated GFR < 15 mL/min/1.73m2 Glucose 132(H) 60 - 115 mg/dL [facility] Calcium 10.1 8.4 - 10.2 mg/dL [facility] Bilirubin, Total 0.4 0.0 - 1.0 mg/dL [facility] Aspartate Amino Transferase 33 5 - 37 U/L [facility] Alanine Aminotransferase 45(H) 0 - 40 U/L [facility] Total Protein 8.2(H) 6.5 - 8.0 g/dL [facility] Albumin Level 4.5 3.5 - 5.0 g/dL [facility] Alkaline Phosphatase 117 39 - 117 U/L [facility] Blood Venous blood specimen / Unknown 06/21/2024 11:43 AM EDT 06/21/2024 1:04 PM EDT us Kendra Joya MD LAB BLOOD ORDERABLES Fin al Result [facility] [address] [place] [phone] * XR Knee 3 Views Left (05/21/2024 4:27 PM EDT) Anatomical Region Laterality Modality Lower Extremities, Knee Left Radiogra phic Imaging 05/21/2024 4:27 PM EDT Narrative 05/21/2024 4:27 PM EDT ? [facility] ?[address] ?[place] [address] ?XRay Report ? Signed ? Patient: Tree,Brannon ?MR#: [id number] ?? 2111 ? : 1965 ?Acct:[id number] ? Age/Sex: 59 / M ?ADM Date: 05/21/24 ? Loc: HO.XRAY ? Attending Dr: Sangita Adhikari MD ? Ordering Physician: Sangita Adhikari MD ?? Date of Service: 05/21/24 ?? Procedure(s): XR knee LT 3V ?? Accession Number(s): [id number] ? cc: Sangita Adhikari MD; Hanna Wheat MD ? CLINICAL HISTORY: M17.0 - Bilateral primary osteoarthritis of knee ? 3 view bilateral knee 3 view Left knee ? Comparison: CR - KNEE LEFT 4 VIEWS [id number] - 06/24/15 10:31 EDT ? Findings: ?? [...] by Aditya Tejada MD in OV> ? 05/21/241626 ? DD/ 1627 ? TD/TT: 05/21/24 1627 ? Wafer Cleaner: ? Procedure Note Nani Medrano - 05/21/2024 [place] [phone] [facility] [place] [place] [address] XRay Report Signed Patient: Jimmy Leavitt#: [id number] 2111 : 1965Acct:[id number] Age/Sex: 59 / MADM Date: 05/21/24 Loc: HOFELICIAAY Attending Dr: Sangita Adhikari MD Ordering Physician: Sangita Adhikari MD Date of Service: 05/21/24 Procedure(s): XR knee LT 3V Accession Number(s): [id number] cc: Sangita Adhikari MD; Hanna Wheat MD CLINICAL HISTORY: M17.0 - Bilateral primary osteoarthritis of knee 3 view bilateral knee 3 view Left knee Comparison: CR - KNEE LEFT 4 VIEWS [id number] - 06/24/15 10:31 EDT Findings: Bones intact. No dislocations. Tricompartmental periarticular osteophyte formation, indicating osteoarthritis. No joint effusion. No radiopaque foreign body. IMPRESSION: 1. No acute findings. This document has been electronically signed by: Aditya Tejada MD on 05/21/2024 16:27:10 Dictated By: Aditya Tejada MD Signed By: <Electronically signed by Aditya Tejada MD in OV> 05/21/24 1627 DD/ 1627 TD/TT: 05/21/24 162 Wafer Cleaner: [facility] External Provider IMG XR PROCEDURES Final Result * XR Knee 3 Views Right (05/21/2024 4:25 PM EDT) Anatomical Region Laterality Modality Lower Extremities, Knee Right [facility] 05/21/2024 4:25 PM EDT Narrative 05/21/2024 4:26 PM EDT ? [facility] ?[address] ?[place] [address] ?XRay Report ? Signed ? Patient: Tree,Brannon ?MR#: [id number] ?? 2111 ? : 1965 ?Acct:[id number] ? Age/Sex: 59 / M ?ADM Date: 03/14/25 ? Loc: HO.XRAY ? Attending Dr: Sangita Adhikari MD ? Ordering Physician: Sangita Adhikari MD ?? Date of Service: 05/21/24 ?? Procedure(s): XR knee RT 3V ?? Accession Number(s): [id number] ? cc: Sangita Adhikari MD; Hanna Wheat [...] in OV> ? 05/21/24 1626 ? DD/ 1625 ? TD/TT: 05/21/24 1625 ? Wafer Cleaner: ? Procedure Note Dondelroyter, Image - 05/21/2024 [place] [address] XRay Report Signed Patient: Jimmy Leavitt#: [id number] 2111 : 1965Acct:[id number] Age/Sex: 59 / MADM Date: 05/21/24 Loc: JING Attending Dr: Sangita Adhikari MD Ordering Physician: Sangita Adhikari MD Date of Service: 05/21/24 Procedure(s): XR knee RT 3V Accession Number(s): [id number] cc: Sangita Adhikari MD; Hanna Wheat MD [...] Tejada MD in OV> 05/21/24 1626 DD/ 24 TD/TT: 05/21/241624 Wafer Cleaner: [facility] External Provider IMG XR PROCEDURES Final Result * (ABNORMAL) Lipid Panel with Reflex to Direct LDL (05/21/2024 9:57 AM EDT) Triglycerides 346(H) <150 mg/dL [facility] Comment:Desirable Triglyceri de: less than 150 mg/dLBorderline High Triglyceride 150-199 mg/dLHigh Triglyceride: 200-499 mg/dLVery High Triglyceride: greater than or equal to 5OO mg/dL Cholesterol 241(H) <200 mg/dL [facility] Comment:Desirable Cholestero l: less than 200 mg/dLBorderline High Cholesterol: 200-239 mg/dLHigh Cholesterol: greater than 239 mg/dL LDL Cholesterol Calculated 139(H) <100 mg/dL [facility] Comment:Desirable LDL: less than 100 mg/dLNear Optimal/Above Optimal LDL: 110- 129 mg/dLBorderline High LDL: 130-159 mg/dLHigh LDL: 160-189 mg/dLVery High LDL: greater than or equal to 190 mg/dL HDL Cholesterol 33(L) >40 mg/dL [facility] Comment:Desirable HDL: great er than 40 mg/dL Note: This HDL assay may give artificially low results in patients with liver disease. Blood 05/21/2024 9:57 AM EDT 05/21/2024 9:57 AM EDT us Hanna Kimball MD LAB BLOOD ORDERABLES Final Result [facility] [address] [place], [place] [phone] * (ABNORMAL) POCT HGB A1C (09/12/2023 9:34 AM EDT) Hemoglobin A1C 6.4(A) 4.0 - 6.0 % QC Media Lot # [id number] Lot# Expiration Date 026 Blood 09/12/2023 9:34 AM EDT Hanna Kimball [...] Kimball MD LAB URINE ORDERABLES Final Result Performing Organization Address City/State/[facility] Co de Phone Number [facility] [address] * Hm Colonoscopy (05/28/2020) Historical Provider HEALTH MAINTENANCE Final Result from Last 3 Months or Most Recently Relevant to Health Maintenance [facility] [employer] Care Teams Assistant Golf Course Superintendent Relationship Specialty Start Date End Date Hanna Wheat MD [address] [place] [phone] PCP - General Family Medicine 10/30/18 Concetta Garcia Paper SlitterDentistry Teacher 11/28/22 Concetta Garcia Paper SlitterDentistry Teacher 05/13/24
--- OUTSIDE RECORDS SUMMARY | 2024-07-05 13:56 | XMS_ITS | Encounter Summary ---
Author Organization [employer] [facility] Address [address] [place] [address] [address], [place] [address] Care Team Providers Care Capper Machine Operator Name Role Phone Hanna Wheat MD Primary Care Provide r Encounter Details Date Type Department Care Team (Late st Contact Info) Description 11/15/2022 Orders Only [facility] [address] [place], [place] [phone] Provider, MD Jacinto Social History Tobacco Use [...] on filedocumented in this encounter Care Teams Capper Machine Operator Relationship Specialty Start Date End Date Hanna Wheat MD [address] [place], [place] [phone] PCP - General Family Medicine 10/30/18 Concetta Garcia Deck And Hull AssemblerWrapper And Preserver 11/28/22 Concetta Garcia Deck And Hull AssemblerWrapper And Preserver 05/13/24 documented as of this encounter
--- OUTSIDE RECORDS SUMMARY | 2024-07-05 13:56 | XMS_ITS | Clinical Summary ---
Author Organization [facility] Address [address] [place] [address] [place] [phone] Phone Care Team Providers Care Food Counter Worker Name Role Phone Unavailable Primary Care [...] Quadrivalent, With Preservative 11/29 Influenza, Unspecified 11/27/2015,12/20/2013, [employer] SARS-COV-2 05/31/2020 Pfizer SARS-COV-2 12/18/2021,06/21/2021 Pneumococcal Conjugate [...]
--- OUTSIDE RECORDS SUMMARY | 2024-07-05 13:56 | XMS_ITS | Encounter Summary ---
Author Organization [employer] Address [address] [place] [address] [address] [place] [address] Care Team Providers Care Thermite Welder Name Role Phone Hanna Wheat MD Primary Care Provide r Reason for Visit * Reason Comments Med Refill Encounter Details Date Type Department Care Team ([facility] st Contact Info) Description 11/07/2022 Refill [facility] [address] [place] [address] Shukri Carney MD [address] [place] [phone] Seasonal allergies; Low back pain, unspecified back [...] present documented in this encounter Care Teams Thermite Welder Relationship Specialty Start Date End Date Hanna Wheat MD [address] [place] [phone] PCP - General Family Medicine 10/30/18 Concetta Garcia Tie Mill OperatorHealth Education Assistant 11/28/22 Concetta Garcia Tie Mill OperatorHealth Education Assistant 05/13/24 documented as of this encounter
--- OUTSIDE RECORDS SUMMARY | 2024-07-05 13:56 | XMS_ITS | Encounter Summary ---
Author Organization [employer] Address [address] [place] [address] [place], [place] [address] Care Team Providers Care Consultant Intern Name Role Phone Hanna Wheat MD Primary Care Provide r Reason for Referral * Imaging (Routine) - Authorized Specialty Diagnoses / Procedures Referred By Contac t Referred To Contact Radiology Diagnoses Generalized abdominal pain Procedures CT Abdomen Pelvis w/ Contrast Kendra Granda MD [address] [place] [address] Phone: tel: fax: [address] Phone: tel: fax: Referral ID Status Reason Start Date Expiration Date V isits Requested Visits Authorized [id number] Authorized 07/01/2024 07/01/2025 1 1 Encounter Details Date Type Department Care Team (Late st Contact Info) Description 06/29/2024 Telephone [facility] [address] [place], [place] [phone] Kendra Granda MD [address] [place], [place] [phone] Social History Tobacco Use Types Packs/Day Years [...] AM EDT documented as of this encounter Miscellaneous Notes * Addendum Note - Kendra Granda MD - 07/01/2024 8:47 AM EDTAddended by: KENDRA GRANDA on: 07/01/2024 08:47 AM Modules accepted: Orders * Telephone Encounter - Ab Sánchez - 06/29/2024 11:30 AM EDT Per [facility] Ct scan has to be update to Ct Abdomen & Pelvis with Contrast . Please advise! documented in this encounter Plan of Treatment Scheduled Orders Name Type Priority Associated Diagnoses Orde r Schedule CT Abdomen Pelvis w/ Contrast Imaging Routine Generalized abdominal pain Expected: 07/01/2024, Expires: 07/01/2025 documented as of this encounter Visit Diagnoses Diagnosis Generalized abdominal pain- Primary Abdominal pain, generalized documented in this encounter Additional Health Concerns Assessment Noted Time PHQ-9 Depression Total Score: 0 05/16/19 9:06 AM EST documented as of this encounter Care Teams Consultant Intern Relationship Specialty Start Date End Date Hanna Wheat MD [address] [place] [phone] PCP - General Family Medicine 10/30/18 Concetta Garcia Oil ProducerScraper Loader Operator 11/28/22 Concetta Garcia Oil ProducerScraper Loader Operator 05/13/24 documented as of this encounter
--- OUTSIDE RECORDS SUMMARY | 2024-07-05 13:56 | XMS_ITS | Encounter Summary ---
Author Organization [employer] Address [address] [facility] 7 [place] [address] Care Team Providers Care Hand Model Name Role Phone Hanna Wheat MD Primary Care Provide r Reason for Visit * Reason Comments Med Refill Encounter Details Date Type Department Care Team ([facility] st Contact Info) Description 12/09/2023 Refill [facility] [address] [place], [place] [phone] Hanna Wheat MD [address] [place], [place] [phone] Primary osteoarthritis of both knees Social History [...] your housing situation today? I have ami ali 12/25/[address] you li [...] documented as of this encounter Care Teams Hand Model Relationship Specialty Start Date End Date Hanna Wheat MD [address] [place] [phone] PCP - General Family Medicine 10/30/18 Concetta Garcia Microelectronics AssemblerAssistant Grocery 11/28/22 Concetta Garcia Microelectronics AssemblerAssistant Grocery 05/13/24 documented as of this encounter
--- OUTSIDE RECORDS SUMMARY | 2024-07-05 13:56 | XMS_ITS | Encounter Summary ---
Author Organization [employer] [facility] Address [address] [place] [address] 7 [place] [address] Care Team Providers Care Wrapper Stripper Name Role Phone Hanna Wheat MD Primary [...] on filedocumented in this encounter Care Teams Wrapper Stripper Relationship Specialty Start Date End Date Hanna Wheat MD [address] [place] [phone] PCP - General Family Medicine 10/30/18 Concetta Garcia Assembly And Packing SupervisorGeotechnician 11/28/22 Concetta Garcia Assembly And Packing SupervisorGeotechnician 05/13/24 documented as of this encounter
== END 2024-07-05 11:31 | disposition home or self-care (01) ==
LOC: HO.HHCL 11:30
PROVIDERS: Visit Provider Internal Medicine
DX: R10.10 Upper abdominal pain, unspecified (principal)
CPT/HCPCS: 36415; 80076; 82565; 84520

== ENCOUNTER 2024-07-07 08:43 | Outpatient (REF) | payer MEDICAID, SELFPAY ==
--- NOTE | ~2024-07-07 | CT_ITS ---
EXAMINATION: CT ABDOMEN PELVIS WITH IV CONTRAST HISTORY: generalized abdominal pain. r/o diverticulitis COMPARISON: Comparison is made with the prior examination dated 11/02/2023. TECHNIQUE: CT scan of the abdomen and pelvis was performed following administration of 85 mL Omnipaque 350 using standard departmental protocol. Coronal and sagittal reformatted images were generated and reviewed. The patient received oral contrast material. This CT exam was performed with one or more of the following dose reduction techniques: automated exposure control, adjustment of the mA and/or kV according to patient size, use of iterative reconstruction technique. DLP: 598 mGy-cm FINDINGS: LOWER CHEST: The visualized lung bases are clear. There is no pleural effusion. CARDIOVASCULATURE: The heart is normal in size. There is no pericardial effusion. LIVER: The liver is normal in size and contour, but demonstrates diffusely decreased attenuation, consistent with steatosis. No liver mass is identified. The hepatic and portal veins are patent. GALLBLADDER / BILE DUCTS: The gallbladder is unremarkable. There is no intra or extrahepatic biliary ductal dilatation. SPLEEN: The spleen is normal in size. No focal splenic lesion is identified. PANCREAS: The pancreas is unremarkable in appearance. ADRENAL GLANDS: Within normal limits. KIDNEYS/RETROPERITONEUM: No renal calculi are identified. There is no hydronephrosis. There are bilateral renal cysts measuring 3.6 cm at the upper pole of the right kidney and 1.4 cm the lower pole of the left kidney. LYMPH NODES: No abdominal or pelvic lymphadenopathy. VASCULATURE: The abdominal aorta demonstrates atherosclerotic calcification, but is normal in caliber. MESENTERY/PERITONEUM: No free fluid. No masses. There is no free intraperitoneal gas. STOMACH: The stomach is unremarkable. SMALL BOWEL: The small bowel is normal in caliber. COLON: The colon is unremarkable. APPENDIX: The appendix is not seen, however no inflammatory changes are seen adjacent to the cecum. URINARY BLADDER/PELVIC ORGANS: The urinary bladder is unremarkable. The prostate is normal in size. BONES / SOFT TISSUES: No suspicious bony or soft tissue abnormalities. CT/CT abdomen pelvis w IV con IMPRESSION: Hepatic steatosis. No inflammatory process is identified. Electronically signed by: Sam Ibrahim MD 07/07/2024 05:48 PM EDT
--- OUTSIDE RECORDS SUMMARY | 2024-07-07 09:00 | XMS_ITS | Encounter Summary ---
Author Organization [employer] [facility] Address [address] [place] [address] 7 [place] [address] Care Team Providers Care Optometric Assistant Name Role Phone Hanna Wheat MD [...] on filedocumented in this encounter Care Teams Optometric Assistant Relationship Specialty Start Date End Date Hanna Wheat MD [address] [place] [phone] PCP - General Family Medicine 10/30/18 Concetta Garcia Slot RouterElectrical Repairer 11/28/22 Concetta Garcia Slot RouterElectrical Repairer 05/13/24 documented as of this encounter
--- OUTSIDE RECORDS SUMMARY | 2024-07-07 09:00 | XMS_ITS | Clinical Summary ---
Author Organization [employer] [facility] Address [address] [facility] 7t [place] [address] Care Team Providers Care Chief Of Internal Medicine Name Role Phone Hanna Wheat MD Primary [...] complication, without long-term current use of insulin ([facility]) Inject 1 each under the skin 2 [...] 2 diabetes mellitus without complication, unspecified whether long-term insulin use (CMS/HCC) TAKE 1 TABLET BY MOUTH TWICE DAILY IN THE MORNING AND IN THE EVENING 180 tablet 1 024 Active metoprolol tartrate (Lopressor) 50 MG tabletIndication s: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, unspecified vessel or lesion type ([facility]) TAKE 1 AND 1/2 TABLETS BY MOUTH TWICE DAILY IN THE MORNING AND IN THE EVENING 270 tablet 1 024 Active glipiZIDE XL (Glucotrol XL) 10 MG 24 hr tabletIndication s:Type 2 diabetes mellitus without complication, unspecified whether terminal worker insulin use ([facility]) TAKE 1 TABLET BY MOUTH TWICE DAILY [...] hyperglycemia, without long-term current use of insulin ([facility]) TAKE 1 TABLET BY MOUTH EVERY MORNING [...] hyperglycemia, without long-term current use of insulin ([facility]) USE DIRECTED TO TEST BLOOD SUGAR TWICE DAILY 50 strip 11 Active empagliflozin (Jardiance) 10 MGIndications:Ty pe 2 diabetes mellitus with hyperglycemia, without long-term current use of insulin ([facility]) TAKE 1 TABLET BY MOUTH EVERY MORNING 90 tablet 1 Active Trulicity 3 MG/0.5ML solution auto-injectorInd ications:Type 2 diabetes mellitus with other specified complication ([facility]) INJECT ONE PEN (= 3MG) SUBCUTANEOUSLY ONCE [...] Jan 2014, s/p multiple stent at [facility], Dr Luo, Several stress tests, echos Complicated [...] Description 07/05/2024 11:20 AM EDT Office Visit [facility] [address] [place] [phone] Kendra Joya MD Acute bilateral thoracic back pain (Primary Dx); Pain of upper abdomen 06/29/2024 Telephone [employer] [address] [place] [address] Kendra Joya MD 06/21/2024 10:40 AM EDT Office Visit [facility] [address] [place] [address] Kendra Joya MD Generalized abdominal pain (Primary Dx); Low back pain with radiation 05/27/2024 Refill [facility] [address] [place] [address] Hanna Wheat MD Low back pain, unspecified back pain laterality, unspecified chronicity, unspecified whether sciatica present 05/25/2024 Refill [facility] [address] [place] [address] Hanna Wheat MD Type 2 diabetes mellitus with other specified complication (CMS/HCC) 05/21/2024 Orders Only [facility] External Provider, [facility] 05/21/2024 Population Health Risk Score [facility] () Department [address] [place] [phone] Provider, Population Health Generic 05/13/2024 Patient Outreach [facility] [address] [place] [address] Hanna Wheat MD Care Coordination (ICP Care Plan) 05/04/2024 Refill [facility] [address] [place] [address] Hanna Wheat MD Primary osteoarthritis of both knees 04/28/2024 11:00 AM EST Office Visit [facility] [address] [place] [address] Abdiel, Aye, OD Presbyopia of both eyes (Primary Dx) 04/28/2024 Travel 04/28/2024 Refill [facility] [address] [place], [place] [phone] Hanna Wheat MD Type 2 diabetes mellitus with hyperglycemia, without long-term current use of insulin (CMS/HCC) 04/23/2024 Refill [facility] [address] [place] [address] Hanna Wheat MD Type 2 diabetes mellitus with hyperglycemia, without long-term current use of insulin ([facility]) from Last 3 Months Immunizations Name Administration [...] hyperglycemia, without long-term current use of insulin ([facility]) ALBUMIN, RANDOM URINE W/CREATININE Routine 02/05/2021 2:07 PM EST HM COLONOSCOPY Routine 05/28/2020 from Last 3 Months or Most Recently Relevant to Health Maintenance Results * Creatinine, Serum (07/05/2024 11:33 AM EDT) Creatinine, Serum 0.98 0.5 - 1.4 mg/dL [facility] Estimated Glomerular Filt Rate >60 [facility] Comment:Chronic Kidney Disea se: Estimated GFR < 60 mL/min/1.14e6Vmpaqm Kidney Disease: Estimated GFR < 15 mL/min/1.73m2 Blood Venous blood specimen / Unknown 07/05/2024 11:33 AM EDT 07/05/2024 1:07 PM EDT Kendra Joya MD LAB BLOOD ORDERABLES Fin al Result Performing Organization Address [facility] Co de Phone Number [facility] [address] [place] [phone] * (ABNORMAL) BUN (Blood Urea Nitrogen) (07/05/2024 11:33 AM EDT) Urea Nitrogen (BUN) 23(H) 9 - 16 mg/dL [facility] Blood Venous blood specimen / Unknown 07/05/2024 11:33 AM EDT 07/05/2024 1:07 PM EDT Kendra Joya MD LAB BLOOD ORDERABLES Fin al Result Performing Organization Address [facility] Co de Phone Number [facility] [address] [place] [phone] * (ABNORMAL) Hepatic Function Panel (07/05/2024 11:33 AM EDT) Bilirubin, Total 0.5 0.0 - 1.0 mg/dL [facility] Bilirubin, Direct 0.1 0.0 - 0.5 mg/dL [facility] Aspartate Amino Transferase 35 5 - 37 U/L [facility] Alanine Aminotransferase 47(H) 0 - 40 U/L [facility] Total Protein 8.1(H) 6.5 - 8.0 g/dL [facility] Albumin Level 4.5 3.5 - 5.0 g/dL [facility] Alkaline Phosphatase 100 39 - 117 U/L [facility] Blood Venous blood specimen / Unknown 07/05/2024 11:33 AM EDT 07/05/2024 1:07 PM EDT Kendra Joya MD LAB BLOOD ORDERABLES Fin al Result [facility] [address] [place] [phone] * POCT urinalysis dipstick manually resulted [...] Blood Count 8.8 4.8 - 10.8 X10*3/uL [facility] Red Blood Count 6.09(H) 4.60 - 5.80 X10*6/uL [facility] Hemoglobin 16.7 14.0 - 18.0 g/dl [facility] Hematocrit 51.3 42.0 - 52.0 % [facility] Mean Corpuscular Volume 84.2 80.0 - 98.0 fL [facility] Mean Corpuscular Hemoglobin 27.4 27.0 - 33.0 pg [facility] Mean Corpuscular HGB Conc 32.6 31.0 - 36.0 g/dl [facility] Red Cell Distribution Width 14.0 11.0 - 16.0 % [facility] Platelet Count 347 160 - 400 X10*3/uL [facility] Mean Platelet Volume 10.2 9.4 - 12.4 fL [facility] Neutrophils Percent Auto 46.7 45 - 73 % [facility] Imm Gran Pct Auto 0.3 0.0 - 0.4 % [facility] Lymphocytes Percent Auto 42.7(H) 20 - 40 % [facility] Monocytes Percent Auto 5.7 2 - 11 % [facility] Eosinophils Percent Auto 3.6 0 - 4 % [facility] Basophils Percent Auto 1.0 0 - 2 % [facility] NRBC Pct Auto 0.0 0.0 - 0.2 /100WBC [facility] Neutrophils Absolute Auto 4.1 2.0 - 8.3 x10*3/uL [facility] Imm Gran Abs Auto 0.03 0.00 - 0.03 X10*3/uL [facility] Lymphocytes Absolute Auto 3.8 1.2 - 4.9 X10*3/uL [facility] Monocytes Absolute Auto 0.5 0.1 - 1.2 X10*3/uL [facility] Eosinophils Absolute Auto 0.3 0.0 - 0.4 X10*3/uL [facility] Basophils Absolute Auto 0.1 0.0 - 0.2 X10*3/uL [facility] NRBC Abs Auto 0.000 0.0 - 0.012 X10*3/uL [facility] Blood Venous blood specimen / Unknown 06/21/2024 11:43 AM EDT 06/21/2024 1:04 PM EDT us Kendra Joya MD LAB BLOOD ORDERABLES Fin al Result [facility] [address] [place] [phone] * (ABNORMAL) Comprehensive Metabolic Panel (06/21/2024 11:43 AM EDT) Sodium 138 135 - 145 mmol/L [facility] Potassium 3.9 3.3 - 5.1 mmol/L [facility] Chloride 106 96 - 108 mmol/L [facility] Carbon Dioxide 24 22 - 29 mmol/L [facility] Anion Gap 12 12 - 20 [facility] Urea Nitrogen (BUN) 20(H) 9 - 16 mg/dL [facility] Creatinine, Serum 1.01 0.5 - 1.4 mg/dL [facility] Estimated Glomerular Filt Rate >60 [facility] Comment:Chronic Kidney Disea se: Estimated GFR < 60 mL/min/1.79e3Skcwlr Kidney Disease: Estimated GFR < 15 mL/min/1.73m2 Glucose 132(H) 60 - 115 mg/dL [facility] Calcium 10.1 8.4 - 10.2 mg/dL [facility] Bilirubin, Total 0.4 0.0 - 1.0 mg/dL [facility] Aspartate Amino Transferase 33 5 - 37 U/L [facility] Alanine Aminotransferase 45(H) 0 - 40 U/L [facility] Total Protein 8.2(H) 6.5 - 8.0 g/dL [facility] Albumin Level 4.5 3.5 - 5.0 g/dL [facility] Alkaline Phosphatase 117 39 - 117 U/L [facility] Blood Venous blood specimen / Unknown 06/21/2024 11:43 AM EDT 06/21/2024 1:04 PM EDT us Kendra Joya MD LAB BLOOD ORDERABLES Fin al Result [facility] [address] [place] [phone] * XR Knee 3 Views Left (05/21/2024 4:27 PM EDT) Anatomical Region Laterality Modality Lower Extremities, Knee Left Radiogra phic Imaging 05/21/2024 4:27 PM EDT Narrative 05/21/2024 4:27 PM EDT ? [facility] ?[address] ?[place] [address] ?XRay Report ? Signed ? Patient: Tree,Brannon ?MR#: [id number] ?? 2111 ? : 1965 ?Acct:[id number] ? Age/Sex: 59 / M ?ADM Date: 05/21/24 ? Loc: HO.XRAY ? Attending Dr: Sangita Adhikari MD ? Ordering Physician: Sangita Adhikari MD ?? Date of Service: 05/21/24 ?? Procedure(s): XR knee LT 3V ?? Accession Number(s): [id number] ? cc: Sangita Adhikari MD; Hanna Wheat MD ? CLINICAL HISTORY: M17.0 - Bilateral primary osteoarthritis of knee ? 3 view bilateral knee 3 view Left knee ? Comparison: CR - KNEE LEFT 4 VIEWS [id number] - 06/24/15 10:31 EDT ? Findings: ?? [...] DD/ 1627 ? TD/TT: 05/21/24 1627 ? Director Of Employer Services: ? Procedure Note Nani Medrano - 05/21/2024 [place] [id number] [place] [address] XRay Report Signed Patient: Jimmy Leavitt#: [id number] 2111 : 1965Acct:[id number] Age/Sex: 59 / MADM Date: 05/21/24 Loc: HOFELICIAAY Attending Dr: Sangita Adhikari MD Ordering Physician: Sangita Adhikari MD Date of Service: 05/21/24 Procedure(s): XR knee LT 3V Accession Number(s): [id number] cc: Sangita Adhikari MD; Hanna Wheat MD CLINICAL HISTORY: M17.0 - Bilateral primary osteoarthritis of knee 3 view bilateral knee 3 view Left knee Comparison: CR - KNEE LEFT 4 VIEWS [id number] - 06/24/15 10:31 EDT Findings: Bones intact. No dislocations. Tricompartmental periarticular osteophyte formation, indicating osteoarthritis. No joint effusion. No radiopaque foreign body. IMPRESSION: 1. No acute findings. This document has been electronically signed by: Aditya Tejada MD on 05/21/2024 16:27:10 Dictated By: Aditya Tejada MD Signed By: <Electronically signed by Aditya Tejada MD in OV> 05/21/24 1627 DD/ 1627 TD/TT: 05/21/24 162 Director Of Employer Services: [facility] External Provider IMG XR PROCEDURES Final Result * XR Knee 3 Views Right (05/21/2024 4:25 PM EDT) Anatomical Region Laterality Modality Lower Extremities, Knee Right [facility] 05/21/2024 4:25 PM EDT Narrative 05/21/2024 4:26 PM EDT ? [facility] ?[address] ?[place] [address] ?XRay Report ? Signed ? Patient: Tree,Brannon ?MR#: [id number] ?? 2111 ? : 1965 ?Acct:[id number] ? Age/Sex: 59 / M ?ADM Date: 03/14/25 ? Loc: HO.XRAY ? Attending Dr: Sangita Adhikari MD ? Ordering Physician: Sangita Adhikari MD ?? Date of Service: 05/21/24 ?? Procedure(s): XR knee RT 3V ?? Accession Number(s): [id number] ? cc: Sangita Adhikari MD; Hanna Wheat [...] DD/ 1625 ? TD/TT: 05/21/24 1625 ? Director Of Employer Services: ? Procedure Note Dondelroyter, Image - 05/21/2024 [place] [address] XRay Report Signed Patient: Jimmy Leavitt#: [id number] 2111 : 1965Acct:[id number] Age/Sex: 59 / MADM Date: 05/21/24 Loc: JING Attending Dr: Sangita Adhikari MD Ordering Physician: Sangita Adhikari MD Date of Service: 05/21/24 Procedure(s): XR knee RT 3V Accession Number(s): [id number] cc: Sangita Adhikari MD; Hanna Wheat MD [...] OV> 05/21/24 1626 DD/ 24 TD/TT: 05/21/241624 Director Of Employer Services: [facility] External Provider IMG XR PROCEDURES Final Result * (ABNORMAL) Lipid Panel with Reflex to Direct LDL (05/21/2024 9:57 AM EDT) Triglycerides 346(H) <150 mg/dL [facility] Comment:Desirable Triglyceri de: less than 150 mg/dLBorderline High Triglyceride 150-199 mg/dLHigh Triglyceride: 200-499 mg/dLVery High Triglyceride: greater than or equal to 5OO mg/dL Cholesterol 241(H) <200 mg/dL [facility] Comment:Desirable Cholestero l: less than 200 mg/dLBorderline High Cholesterol: 200-239 mg/dLHigh Cholesterol: greater than 239 mg/dL LDL Cholesterol Calculated 139(H) <100 mg/dL [facility] Comment:Desirable LDL: less than 100 mg/dLNear Optimal/Above Optimal LDL: 110- 129 mg/dLBorderline High LDL: 130-159 mg/dLHigh LDL: 160-189 mg/dLVery High LDL: greater than or equal to 190 mg/dL HDL Cholesterol 33(L) >40 mg/dL [facility] Comment:Desirable HDL: great er than 40 mg/dL Note: This HDL assay may give artificially low results in patients with liver disease. Blood 05/21/2024 9:57 AM EDT 05/21/2024 9:57 AM EDT us Hanna Kimball MD LAB BLOOD ORDERABLES Final Result [facility] [address] [place], [place] [phone] * (ABNORMAL) POCT HGB A1C (09/12/2023 [...] URINE ORDERABLES Final Result Performing Organization Address City/State/[facility] Co de Phone Number [facility] [address] * Hm Colonoscopy (05/28/2020) Historical Provider HEALTH MAINTENANCE Final Result from Last 3 Months or Most Recently Relevant to Health Maintenance [facility] Care Teams Chief Of Internal Medicine Relationship Specialty Start Date End Date Hanna Wheat MD [address] [place] [phone] PCP - General Family Medicine 10/30/18 Concetta Garcia Project Manager FinanceManagement Trainee Marketing 11/28/22 Concetta Garcia Project Manager FinanceManagement Trainee Marketing 05/13/24
--- OUTSIDE RECORDS SUMMARY | 2024-07-07 09:00 | XMS_ITS | Encounter Summary ---
Author Organization [employer] [facility] Address [address] [place] [address] 7 [place] [address] Care Team Providers Care Teacher Tutor Name Role Phone Hanna Wheat MD Primary Care Provide r Reason for Visit * Reason Comments Med Refill Encounter Details Date Type Department Care Team ([facility] st Contact Info) Description 08/24/2022 Refill [facility] [address] [place], [place] [phone] Kendra Joya MD [address] [place], [place] [phone] Atherosclerosis of coronary artery of [place] heart with stable angina pectoris, unspecified vessel [...] Diagnoses Diagnosis Atherosclerosis of coronary artery of [place] heart with stable angina pectoris, unspecified vessel or lesion type (CMS/[facility]) documented in this encounter Care Teams Teacher Tutor Relationship Specialty Start Date End Date Hanna Wheat MD [address] [place] [address] PCP - General Family Medicine 10/30/18 Concetta Garcia Guest Experience RepresentativeJewelry Casting Model Maker Apprentice 11/28/22 Concetta Garcia Guest Experience RepresentativeJewelry Casting Model Maker Apprentice 05/13/24 documented as of this encounter
--- OUTSIDE RECORDS SUMMARY | 2024-07-07 09:00 | XMS_ITS | Encounter Summary ---
Author Organization [employer] Address [address] [facility] 7 [place] [address] Care Team Providers Care Coat Maker Name Role Phone Hanna Wheat MD Primary Care Provide r Reason for Visit * Reason Comments Med Refill Encounter Details Date Type Department Care Team ([facility] st Contact Info) Description 12/09/2023 Refill [facility] [address] [place], [place] [phone] Hanna Wheat MD [address] [place], [place] [phone] Primary osteoarthritis of both knees Social History [...] documented as of this encounter Care Teams Coat Maker Relationship Specialty Start Date End Date Hanna Wheat MD [address] [place] [phone] PCP - General Family Medicine 10/30/18 Concetta Garcia Luggage RepairerBrim Buster 11/28/22 Concetta Garcia Luggage RepairerBrim Buster 05/13/24 documented as of this encounter
--- OUTSIDE RECORDS SUMMARY | 2024-07-07 09:00 | XMS_ITS | Encounter Summary ---
Author Organization [employer] [facility] Address [address] [place] [address] [address], [place] [address] Care Team Providers Care District Home Economics Agent Name Role Phone Hanna Wheat MD Primary Care Provide r Reason for Visit * Reason Comments Med Refill Encounter Details Date Type Department Care Team ([facility] st Contact Info) Description 11/06/2022 Refill [facility] [address] [place], [place] [phone] Shukri Carney MD [address] [place] [address] Social History Tobacco Use Types Packs/Day Years [...] on filedocumented in this encounter Care Teams District Home Economics Agent Relationship Specialty Start Date End Date Hanna Wheat MD [address] [place], [place] [phone] PCP - General Family Medicine 10/30/18 Concetta Garcia Restaurant Hourly ManagerJava Flex Developer 11/28/22 Concetta Garcia Restaurant Hourly ManagerJava Flex Developer 05/13/24 documented as of this encounter
--- OUTSIDE RECORDS SUMMARY | 2024-07-07 09:00 | XMS_ITS | Clinical Summary ---
Author Organization [facility] Address [address] [facility] [address] [address] [facility] [address] [place] [phone] Phone Care Team Providers Care Telegraph Inspector Name Role Phone Unavailable Primary Care Provider [...] Quadrivalent, With Preservative 11/29 Influenza, Unspecified 11/27/2015,12/20/2013, [employer] SARS-COV-2 05/31/2020 Pfizer SARS-COV-2 12/18/2021,06/21/2021 Pneumococcal Conjugate [...]
--- OUTSIDE RECORDS SUMMARY | 2024-07-07 09:00 | XMS_ITS | Encounter Summary ---
Author Organization [employer] [facility] Address [address] [place] [address] [address], [place] [address] Care Team Providers Care Door Repairer Bus Name Role Phone Hanna Wheat MD Primary Care Provide r Reason for Visit * Reason Comments Med Refill Encounter Details Date Type Department Care Team ([facility] st Contact Info) Description 08/24/2022 Refill [facility] MED[facility]INE [address] [place], [place] [phone] Ellie Wheeler MD [address] [place], [place] [phone] Type 2 diabetes mellitus without complication, unspecified whether buttermaker continuous churn insulin use ([facility]); Dyslipidemia Social History Tobacco Use Types [...] 2 diabetes mellitus without complication, unspecified whether buttermaker continuous churn insulin use (CMS/[facility]) Dyslipidemia Other and unspecified hyperlipidemia documented in this encounter Care Teams Door Repairer Bus Relationship Specialty Start Date End Date Hanna Wheat MD [address] [place] [phone] PCP - General Family Medicine 10/30/18 Concetta Garcia Photo CartographerPlumbing Installer 11/28/22 Concetta Garcia Photo CartographerPlumbing Installer 05/13/24 documented as of this encounter
--- OUTSIDE RECORDS SUMMARY | 2024-07-07 09:00 | XMS_ITS | Encounter Summary ---
Author Organization [facility] Address [address] [place] [address] [address] [address] Care Team Providers Care Costume Rental Clerk Name Role Phone Hanna Wheat MD Primary Care Provide r Encounter Details Date Type Department Care Team (Late st Contact Info) Description 11/15/2022 Orders Only [facility] MEDICINE [address] [place], [place] [phone] Provider, MD Jacinto Social History Tobacco Use [...] on filedocumented in this encounter Care Teams Costume Rental Clerk Relationship Specialty Start Date End Date Hanna Wheat MD [address] [place], [place] [phone] PCP - General Family Medicine 10/30/18 Concetta Garcia Fern PickerHot Plate Press Operator 11/28/22 Concetta Garcia Fern PickerHot Plate Press Operator 05/13/24 documented as of this encounter
--- OUTSIDE RECORDS SUMMARY | 2024-07-07 09:00 | XMS_ITS | Clinical Summary ---
Author Organization [facility] Address [address] [place] [address] Care Team Providers Care Aix System Administrator Name Role Phone Hanna Wheat MD Primary Care Provide r Surgical History Surgery Date Site/Laterality Comments CARDIAC CATHETERIZATION PROCEDURE: HISTORICAL CARDIAC CATH; COMMENT: Cath Jan 2014 s/p mult stents at [facility] APPENDECTOMY PROCEDURE: HISTORICAL APPENDECTOMY HERNIA REPAIR PROCEDURE: HISTORICAL HERNIA REPAIR/UMB OTHER SURGICAL HISTORY PROCEDURE: ---- OTHER ----; COMMENT: sinus surgery COLONOSCOPY 2014 PROCEDURE: HISTORICAL COLONOSCOPY; COMMENT: repeat in 5 yrs, per patient, at [place] Medical History Medical History Date Comments Atrial fibrillation (CMS/HCC V24, CMS/HCC V28) 11/27/2015 DX:Atrial fibrillation ([facility]) ; COMMENT: During hospital admission at [place] Nov 2015, reverted to sinus wiith meds, f/u Cardio at [place], will have 30day loop recorder, off anticoagulation per cardiology CAD (coronary artery disease) 10/27/2015 DX :CAD (coronary artery disease); COMMENT: Cath Jan 2014, s/p multiple stent at [facility], Dr Luo, Several stress tests, echos [...] age to complete this topic Care Teams Aix System Administrator Relationship Specialty Start Date End Date Hanna Wheat MD [address] [place] [phone] PCP - General 03/20/23
--- OUTSIDE RECORDS SUMMARY | 2024-07-07 09:00 | XMS_ITS | Encounter Summary ---
Author Organization [employer] Address [address] [place] [address] 7 [place] [address] Care Team Providers Care Dressage Instructor Name Role Phone Hanna Wheat MD Primary Care Provide r Reason for Visit * Reason Comments Med Refill Encounter Details Date Type Department Care Team ([facility] st Contact Info) Description 11/07/2022 Refill [facility] [address] [place] [address] Shukri Carney MD [address] [place] [address] Seasonal allergies; Low back pain, unspecified back [...] present documented in this encounter Care Teams Dressage Instructor Relationship Specialty Start Date End Date Hanna Wheat MD [address] [place] [address] PCP - General Family Medicine 10/30/18 Concetta Garcia Grain Elevator ManPsychiatry Adult Physician 11/28/22 Concetta Garcia Grain Elevator ManPsychiatry Adult Physician 05/13/24 documented as of this encounter
--- OUTSIDE RECORDS SUMMARY | 2024-07-07 09:00 | XMS_ITS | Encounter Summary ---
Author Organization [employer] Address [address] [place] [address] 7[place] [address] Care Team Providers Care Polishing Machine Tender Name Role Phone Hanna Wheat MD Primary Care Provide r Encounter Details Date Type Department Care Team (Late st Contact Info) Description 07/07/2022 Orders Only [facility] MEDICINE [address] [place] [address] Kendra Joya MD [address] [place] [address] Social History Tobacco Use Types Packs/Day Years [...] on filedocumented in this encounter Care Teams Polishing Machine Tender Relationship Specialty Start Date End Date Hanna Wheat MD [address] [place] [address] PCP - General Family Medicine 10/30/18 Concetta Garcia Criminal JudgeRoofer Helper 11/28/22 Concetta Garcia Criminal JudgeRoofer Helper 05/13/24 documented as of this encounter
--- OUTSIDE RECORDS SUMMARY | 2024-07-07 09:00 | XMS_ITS | Encounter Summary ---
Author Organization [facility] Address [address] [facility] 7t [place] [address] Care Team Providers Care Supervisor Body Assembly Name Role Phone Hanna Wheat MD Primary Care Provide r Encounter Details Date Type Department Care Team (Late st Contact Info) Description 07/05/2024 11:20 AM EDT Office Visit [facility] [address] [place], [place] [phone] Kendra Joya MD [address] [place], [place] [phone] Acute bilateral thoracic back pain (Primary Dx); [...] migrainosus, not intractable GI (acute kidney injury) (CMS/[facility]) Encounter for preventative adult health care examination [...] MORNING 90 capsule 1 TRUEplus Lancets 33G [facility] TEST BLOOD SUGAR TWICE DAILY Trulicity 3 [...] Bilirubin, Total 0.5 0.0 - 1.0 mg/dL [facility] Bilirubin, Direct 0.1 0.0 - 0.5 mg/dL [facility] Aspartate Amino Transferase 35 5 - 37 U/L [facility] Alanine Aminotransferase 47(H) 0 - 40 U/L [facility] Total Protein 8.1(H) 6.5 - 8.0 g/dL [facility] Albumin Level 4.5 3.5 - 5.0 g/dL [facility] Alkaline Phosphatase 100 39 - 117 U/L [facility] Blood Venous blood specimen / Unknown 07/05/2024 11:33 AM EDT 07/05/2024 1:07 PM EDT us Kendra Joya MD LAB BLOOD ORDERABLES Fin al Result Performing Organization Address City/[facility]/ZIP Co de Phone Number [facility] [address] [place] [phone] * Creatinine, Serum (07/05/2024 11:33 AM EDT) Creatinine, Serum 0.98 0.5 - 1.4 mg/dL [facility] Estimated Glomerular Filt Rate >60 [facility] Comment:Chronic Kidney Disea se: Estimated GFR < 60 mL/min/[id number] Kidney Disease: Estimated GFR < 15 mL/min/1.73m2 Blood Venous blood specimen / Unknown 07/05/2024 11:33 AM EDT 07/05/2024 1:07 PM EDT us Kendra Joya MD LAB BLOOD ORDERABLES Fin al Result [facility] [address] [place] [phone] * (ABNORMAL) BUN (Blood Urea Nitrogen) (07/05/2024 11:33 AM EDT) Urea Nitrogen (BUN) 23(H) 9 - 16 mg/dL [facility] Blood Venous blood specimen / Unknown 07/05/2024 11:33 AM EDT 07/05/2024 1:07 PM EDT us Kendra Joya MD LAB BLOOD ORDERABLES Fin al Result [facility] [address] [place] [phone] [phone] * POCT urinalysis dipstick manually resulted [...] as of this encounter Care Teams Supervisor Body Assembly Relationship Specialty Start Date End Date Hanna Wheat MD [address] [place] [phone] PCP - General Family Medicine 10/30/18 Concetta Garcia Live Study ManagerHot Air Furnace Installer And Repairer 11/28/22 Concetta Garcia Live Study ManagerHot Air Furnace Installer And Repairer 05/13/24 documented as of this encounter
[2024-07-07] MEDS: iohexoL 350 MG/ML 100 ML INFUS..BTL IV (11:37)
[2024-07-07] MEDS: Barium Sulfate Oral (Vanilla) 450 ML ORAL.SUSP PO ×2 (11:38)
== END 2024-07-07 08:44 | disposition home or self-care (01) ==
LOC: HO.CT 08:43
PROVIDERS: PCP Internal Medicine; Visit Provider Internal Medicine
DX: R10.84 Generalized abdominal pain (principal)
CPT/HCPCS: 74177; Q9967

== ENCOUNTER → 2024-07-07 08:45 | Outpatient (BNV) | payer MEDICAID, SELFPAY | PROVIDERS: PCP Internal Medicine; Visit Provider Radiology Diagnostic Radiology | DX: K76.0 Fatty (change of) liver, not elsewhere classified (principal) | CPT/HCPCS: 74177 ==

== ENCOUNTER 2024-07-08 09:58 | Outpatient (AMB) | payer MEDICAID, SELFPAY ==
[2024-07-08 10:01] VITALS: BP 134/72; PULSE 77; BMI 36.3
--- NOTE | 2024-07-08 10:01 | MHC.OFFVIS ---
Vital Signs 07/08/24 10:01 Height 5 ft 9 in Weight 245 lb 9.519 oz BMI 36.3 BP 134/72 Blood Pressure Location Lt brachial Pulse 77 Pulse Source Pulse Oximeter Intake Visit Reasons: r/s Km- 3 f/up- Photography Assistant Required: Yes Photography Assistant Language: Health And Social Care Teacher Name: voice [id number] Allergies Iodinated Contrast Media [IV CONTRAST] Allergy (Intermediate, Verified 07/08/24 10:03) Difficulty Breathing Penicillins Allergy (Mild, Verified 07/08/24 10:03) RASH Sulfa (Sulfonamide Antibiotics) Allergy (Mild, Verified 07/08/24 10:03) RASH codeine Adverse Reaction (Mild, Verified 07/08/24 10:03) STOMACH UPSET Docusate Calcium Allergy (Mild, Uncoded 07/08/24 10:03) rash Medication List - Last Reconciled 07/08/24 by NIKI ArciniegaC acetaminophen ER 650 mg PO Q8H PRN amlodipine 10 mg PO DAILY@1200 apixaban (Eliquis) 5 mg PO BID 90 days aspirin 81 mg PO DAILY atorvastatin 80 mg PO BEDTIME chlorthalidone 25 mg PO DAILY cholecalciferol (vitamin D3) 50 mcg PO DAILY dulaglutide (Trulicity) 3 mg subcut FR@0900 empagliflozin (Jardiance) 10 mg PO DAILY esomeprazole magnesium (Nexium) 40 mg PO DAILY@0630 fenofibrate 160 mg PO BEDTIME fluticasone furoate 100 mcg/actuation (Arnuity Ellipta) 1 inh inhalation DAILY fluticasone propionate 50 mcg/actuation 2 sprays intranasal DAILY PRN gabapentin 600 mg PO BID glipizide ER 1 tab PO BID isosorbide mononitrate ER 30 mg PO QPM lidocaine 5% 1 patch topical DAILY PRN linaclotide (Linzess) 145 mcg PO DAILY loperamide 2 mg PO Q4H PRN loratadine 10 mg PO DAILY losartan 100 mg PO DAILY metformin 500 mg PO BID metoprolol tartrate 1.5 tabs PO BID mometasone 100 mcg/actuation (Asmanex HFA) 1 inh inhalation DAILY niacin ER 500 mg PO BEDTIME oxycodone 5 mg PO BID PRN tamsulosin 0.4 mg PO DAILY HPI HPI r/s Km- 3 mth f/up-: Details: Chucho is a 59-year-old male past medical history of hypertension, hyperlipidemia, paroxysmal atrial flutter, CAD with prior LAD stenting with recurrent issues of in stent restenosis, who then underwent coronary artery bypass grafting. On last visit his blood pressures were elevated and he was started on chlorthalidone. He now presents for follow-up. Today he reports he has been doing better since starting the new medication. His home blood pressures are now in the normal range. He is not able to tell me what the numbers are though. He has not been experiencing any concerning symptoms. He denies chest pains, shortness of breath, heart palpitations. He tells me he walks for 1 hour each day and tolerates it well. He is taking all his meds as directed and uses a pill pack from the pharmacy. [facility] Medical History (Updated 07/08/24 @ 10:54 by NIKI ArciniegaC) CAD (coronary artery disease) Carpal tunnel syndrome on both sides Bilateral primary osteoarthritis of knee Hypertension Osteoarthritis TIA (transient ischemic attack) Chest pain Gastroparesis Anal fistula Low back pain Perianal abscess History of panic attacks Hx of myocardial infarction Arthritis GERD (gastroesophageal reflux disease) Scoliosis Asthma Tubular adenoma Migraines Seizures Depression Diabetes Adhesive capsulitis of left shoulder Atrial flutter Cellulitis Surgical History History of incision and drainage (~10/19/21) History of umbilical hernia repair History of esophagogastroduodenoscopy (EGD) H/O colonoscopy History of open heart surgery History of sinus surgery History of appendectomy History of angioplasty Family History Father No problems noted. Mother History of stomach cancer History of liver cancer Brother No problems noted. 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 day care assistant to a significant other at home: Yes (children) Do you presently have visiting nurse or other home services: No Alcohol intake: current Alcohol intake frequency: holidays/special occasions only Alcohol type: beer Patient Tobacco Use Status: Never used Tobacco Advance Directives Date on File: 05/15/22 service: No Current occupational status: disabled Review of Systems Const All systems reviewed & are unremarkable except as noted in HPI and below ENT Denies dizziness Card Denies chest pain, Denies chest pain at rest, Denies chest pain with activity, Denies rapid heart rate, Denies pedal edema, Denies edema, Denies leg edema, Denies lightheadedness, Denies palpitations, Denies dyspnea, Denies dyspnea on exertion and Denies orthopnea Resp Denies cough, Denies dyspnea and Denies dyspnea on exertion GI Denies hematochezia and Denies change in stool character Musc Denies abnormal gait, Denies limited range of motion, Denies muscle cramps, Denies muscle weakness, Denies numbness, Denies radiating pain into limb, Denies stiffness and Denies tingling Neuro Denies abnormal gait, Denies dizziness, Denies numbness and Denies tingling Endo Denies palpitations Physical Exam Vital Signs: Last Vital Signs Pulse 77 07/08/24 10:01 BP 134/72 07/08/24 10:01 BMI result Body Mass Index 36.3 Const General: cooperative, healthy appearing, comfortable and no acute distress Orientation/consciousness: patient oriented x3 Neck Neck: Yes normal visual inspection Resp Effort & Inspection: normal respiratory effort Auscultation: clear to auscultation bilaterally, no rales, no rhonchi and no wheezes Cardio Rate: regular rate Rhythm: regular rhythm Heart sounds: S1 normal heart sound present, S2 normal heart sound present, no murmurs and no rubs Neuro General: patient oriented x3 Extrem General: Yes normal to inspection and No no pedal edema Psych Appearance: grossly normal Mental Status: mental status grossly normal Speech and movement: Normal speech and movement present Assessment & Plan Assessment & Plan (1) Hypertension: Code(s): I10 - Essential (primary) hypertension Category: Medical Plan: [place] blood pressure goal less than 130/80. Chlorthalidone added last visit. Blood Pressure improved at this time. Labs done 07/05/2024 showed creatinine 0.98, potassium 3.9. Continue chlorthalidone, losartan, isosorbide, metoprolol, amlodipine. (2) CAD (coronary artery disease): Comment: Sees Dr Jean Code(s): I25.10 - Atherosclerotic heart disease of [place] coronary artery without angina pectoris Category: Medical Plan: History of CAD with prior LAD stent, InStent stenosis then single-vessel coronary artery bypass grafting, 04/2019 with DE ANDA to LAD. Last echo 05/15/2022, EF 69%, no valve abnormalities and no regional wall motion abnormalities. No reports of anginal symptoms. Continue aspirin indefinitely. Continue atorvastatin with ideal LDL goal less than 70. Continue metoprolol, amlodipine, isosorbide. losartan. Cardiac risk factor modification discussed. Signs and symptoms of angina reviewed. Cardiology follow-up 6 months, sooner if needed. (3) History of open heart surgery: Comment: CABG - 04/2019, single vessel, de anda to LAD Code(s): Z98.890 - Other specified postprocedural states Category: Surgical Plan: As above (4) Atrial flutter: Code(s): I48.92 - Unspecified atrial flutter Category: Medical Plan: Notes indicate 1 documented episode of atrial flutter without known reoccurrence. Pulse is regular on examination today. Continue metoprolol for heart rate control. Continue Eliquis for anticoagulation. Plan Time spent on chart review, documentation, interview, assessment Patient was informed and verbally consented to the use of an ambient scribe for clinic note documentation during this visit. During the consultation, I reviewed the patient's blood pressure management status. We discussed the importance of monitoring blood pressure at home, particularly watching for systolic levels over 140 mmHg, and adhering to lifestyle modifications like reducing dietary salt, which can influence hypertension control. I reinforced the necessity of regular medication adherence, exercise, and follow-up visits. We consented to a six-month follow-up unless earlier intervention was clinically indicated due to raised blood pressure or symptom manifestations. Potential risks such as bleeding related to blood thinner use were reviewed, and the patient reports no current issues. Patient Instructions: - Continue taking all prescribed medications daily. - Monitor your blood pressure at home regularly. - Call us if your top blood pressure number is over 140. - Limit the salt in your diet. - Continue your daily walking exercise. - Return for follow-up in six months or sooner if needed. - Let us know if you have chest pain, trouble breathing, heart palpitations or any new symptoms. Coding Level of Care Code Est Pt Level 4 (20054) Complex EM visit Add On G2211 Diagnoses Hypertension I10 CAD (coronary artery disease) I25.10 History of open heart surgery Z98.890 Atrial flutter I48.92 Time Spent (min) 28
--- OUTSIDE RECORDS SUMMARY | 2024-07-08 11:10 | XMS_ITS | Encounter Summary ---
Author Organization [employer] Address [address] [facility] 7t [place] [address] Care Team Providers Care Hogshead Hooper Name Role Phone Hanna Wheat MD Primary Care Provide r Encounter Details Date Type Department Care Team (Late st Contact Info) Description 07/05/2024 11:20 AM EDT Office Visit [facility] [address] [place], [place] [phone] Kendra Joya MD [address] [place], [place] [phone] Acute bilateral thoracic back pain (Primary Dx); [...] migrainosus, not intractable GI (acute kidney injury) (CMS/[facility]) Encounter for preventative adult health care examination [...] MORNING 90 capsule 1 TRUEplus Lancets 33G [facility] TEST BLOOD SUGAR TWICE DAILY Trulicity 3 [...] Total 0.5 0.0 - 1.0 mg/dL [facility] Bilirubin, Direct 0.1 0.0 - 0.5 mg/dL [facility] Aspartate Amino Transferase 35 5 - 37 U/L [facility] Alanine Aminotransferase 47(H) 0 - 40 U/L [facility] Total Protein 8.1(H) 6.5 - 8.0 g/dL [facility] Albumin Level 4.5 3.5 - 5.0 g/dL [facility] Alkaline Phosphatase 100 39 - 117 U/L [facility] Blood Venous blood specimen / Unknown 07/05/2024 11:33 AM EDT 07/05/2024 1:07 PM EDT us Kendra Joya MD LAB BLOOD ORDERABLES Fin al Result Performing Organization Address City/[facility]/ZIP Co de Phone Number [facility] [address] [place] [phone] * Creatinine, Serum (07/05/2024 11:33 AM EDT) Creatinine, Serum 0.98 0.5 - 1.4 mg/dL [facility] Estimated Glomerular Filt Rate >60 [facility] Comment:Chronic Kidney Disea se: Estimated GFR < 60 mL/min/1.61c8Lofaat Kidney Disease: Estimated GFR < 15 mL/min/1.73m2 Blood Venous blood specimen / Unknown 07/05/2024 11:33 AM EDT 07/05/2024 1:07 PM EDT us Kendra Joya MD LAB BLOOD ORDERABLES Fin al Result [facility] [address] [place] [phone] * (ABNORMAL) BUN (Blood Urea Nitrogen) (07/05/2024 11:33 AM EDT) Urea Nitrogen (BUN) 23(H) 9 - 16 mg/dL [facility] Blood Venous blood specimen / Unknown 07/05/2024 11:33 AM EDT 07/05/2024 1:07 PM EDT us Kendra Joya MD LAB BLOOD ORDERABLES Fin al Result [facility] [address] [place] [phone] [phone] * POCT urinalysis dipstick manually resulted [...] documented as of this encounter Care Teams Hogshead Hooper Relationship Specialty Start Date End Date Hanna Wheat MD [address] [place] [phone] PCP - General Family Medicine 10/30/18 Concetta Garcia 2Nd Grade TeacherCurb Machine Operator 11/28/22 Concetta Garcia 2Nd Grade TeacherCurb Machine Operator 05/13/24 documented as of this encounter
--- OUTSIDE RECORDS SUMMARY | 2024-07-08 11:10 | XMS_ITS | Encounter Summary ---
Author Organization [employer] [facility] [facility] Address [address] [place] [address], [place] [address] Care Team Providers Care Dispatcher Refinery Name Role Phone Hanna Wheat MD Primary Care Provide r Encounter Details Date Type Department Care Team (Late st Contact Info) Description 11/15/2022 Orders Only [facility] MED[facility] [address] [place], [place] [phone] Provider, MD Jacinto Social History Tobacco Use [...] on filedocumented in this encounter Care Teams Dispatcher Refinery Relationship Specialty Start Date End Date Hanna Wheat MD [address] [place], [place] [phone] PCP - General Family Medicine 10/30/18 Concetta Garcia Land Leases And Rentals ManagerInsurance Sales Associate 11/28/22 Concetta Garcia Land Leases And Rentals ManagerInsurance Sales Associate 05/13/24 documented as of this encounter
--- OUTSIDE RECORDS SUMMARY | 2024-07-08 11:10 | XMS_ITS | Clinical Summary ---
Author Organization [facility] Address [address] [place] [address] [place] [address] Phone Care Team Providers Care Medicaid Plan Compliance Director Name Role Phone Unavailable Primary Care Provider [...] Quadrivalent, With Preservative 11/29 Influenza, Unspecified 11/27/2015,12/20/2013, Firebase SARS-COV-2 05/31/2020 Pfizer SARS-COV-2 12/18/2021,06/21/2021 Pneumococcal Conjugate [...]
--- OUTSIDE RECORDS SUMMARY | 2024-07-08 11:10 | XMS_ITS | Clinical Summary ---
Author Organization [employer] [facility] Address [address] [place] [address] Care Team Providers Care Air Defense Specialist Name Role Phone Hanna Wheat MD Primary [...] complication, without long-term current use of insulin ([facility]) Inject 1 each under the skin 2 [...] 2 diabetes mellitus without complication, unspecified whether termite control representative insulin use (CMS/HCC) TAKE 1 TABLET BY MOUTH TWICE DAILY IN THE MORNING AND IN THE EVENING 180 tablet 1 024 Active metoprolol tartrate (Lopressor) 50 MG tabletIndication s: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, unspecified vessel or lesion type ([facility]) TAKE 1 AND 1/2 TABLETS BY MOUTH TWICE DAILY IN THE MORNING AND IN THE EVENING 270 tablet 1 024 Active glipiZIDE XL (Glucotrol XL) 10 MG 24 hr tabletIndication s:Type 2 diabetes mellitus without complication, unspecified whether termite control representative insulin use ([facility]) TAKE 1 TABLET BY MOUTH TWICE DAILY [...] hyperglycemia, without long-term current use of insulin ([facility]) TAKE 1 TABLET BY MOUTH EVERY MORNING [...] hyperglycemia, without long-term current use of insulin ([facility]) USE DIRECTED TO TEST BLOOD SUGAR TWICE DAILY 50 strip 11 Active empagliflozin (Jardiance) 10 MGIndications:Ty pe 2 diabetes mellitus with hyperglycemia, without long-term current use of insulin ([facility]) TAKE 1 TABLET BY MOUTH EVERY MORNING 90 tablet 1 Active Trulicity 3 MG/0.5ML solution auto-injectorInd ications:Type 2 diabetes mellitus with other specified complication ([facility]) INJECT ONE PEN (= 3MG) SUBCUTANEOUSLY ONCE [...] Cath Jan 2014, s/p multiple stent at [facility], Dr Luo, Several stress tests, echos Complicated [...] Description 07/05/2024 11:20 AM EDT Office Visit [facility] [address] [place] [phone] Kendra Joya MD Acute bilateral thoracic back pain (Primary Dx); Pain of upper abdomen 06/29/2024 Telephone [employer] [address] [place] [address] Kendra oJya MD 06/21/2024 10:40 AM EDT Office Visit [facility] [address] [place] [address] Kendra Joya MD Generalized abdominal pain (Primary Dx); Low back pain with radiation 05/27/2024 Refill [facility] [address] [place] [address] Hanna Wheat MD Low back pain, unspecified back pain laterality, unspecified chronicity, unspecified whether sciatica present 05/25/2024 Refill [facility] [address] [place] [address] Hanna Wheat MD Type 2 diabetes mellitus with other specified complication (CMS/HCC) 05/21/2024 Orders Only [facility] External Provider, [facility] 05/21/2024 Population Health Risk Score [facility] () Department [address] [place] [phone] Provider, Population Health Generic 05/13/2024 Patient Outreach [facility] [address] [place] [address] Hanna Wheat MD Care Coordination (ICP Care Plan) 05/04/2024 Refill [facility] [address] [place] [address] Hanna Wheat MD Primary osteoarthritis of both knees 04/28/2024 11:00 AM EST Office Visit [facility] [address] [place] [address] Abdiel, Aye, OD Presbyopia of both eyes (Primary Dx) 04/28/2024 Travel 04/28/2024 Refill [facility] [address] [place], [place] [phone] Hanna Wheat MD Type 2 diabetes mellitus with hyperglycemia, without long-term current use of insulin (CMS/HCC) 04/23/2024 Refill [facility] [address] [place] [address] Hanna Wheat MD Type 2 diabetes mellitus with hyperglycemia, without long-term current use of insulin ([facility]) from Last 3 Months Immunizations Name Administration [...] Procedure Name Priority Date/Time Associated Diagnosis Comments CT ABDOMEN PELVIS W CONTRAST Routine 07/07/2024 11:13 AM EDT Generalized abdominal pain HEPATIC FUNCTION PANEL Routine 07/05/2024 11:33 AM [...] hyperglycemia, without long-term current use of insulin ([facility]) ALBUMIN, RANDOM URINE W/CREATININE Routine 02/05/2021 2:07 PM EST HM COLONOSCOPY Routine 05/28/2020 from Last 3 Months or Most Recently Relevant to Health Maintenance Results * CT Abdomen Pelvis w/ Contrast (07/07/2024 11:13 AM EDT) Anatomical Region Laterality Modality Body, Pelvis, Abdomen Computed T omography 07/07/2024 11:1 3 AM EDT Narrative 07/07/2024 5:51 PM EDT ? [facility] ?[address] ?[place] [address] ? CT Scan Report ? Signed ? Patient: Tree,Brannon ?MR#: [id number] ?? 2111 ? : 1965 ?Acct:[id number] ? Age/Sex: 59 / M ?ADM Date: 07/07/24 ? Loc: HO.CT ? Attending Dr: Kendra Joya MD ? Ordering Physician: Kendra Joya MD ?? Date of Service: 07/07/24 ?? Procedure(s): CT abdomen pelvis w IV con ?? Accession Number(s): [id number] ? cc: Hanna Wheat MD; Kendra Joya MD ? Report Number: ?? [id number]: Total DLP = ??598.00 mGy-cm ?? EXAMINATION: ??CT ABDOMEN PELVIS WITH IV CONTRAST ? HISTORY: generalized abdominal pain. ??r/o diverticulitis ? COMPARISON: Comparison is made with the prior examination dated ?? 11/02/2023. ? TECHNIQUE: CT scan of the abdomen and pelvis was performed following ?? administration of 85 mL Omnipaque 350 using standard departmental ?? protocol. Coronal and sagittal reformatted images were generated and ?? reviewed. ??The patient received oral contrast material. ? This CT exam was performed with one or more of the following dose ?? reduction techniques: automated exposure control, adjustment of the mA ?? and/or kV according to patient size, use of iterative reconstruction ?? technique. ? DLP: 598 mGy-cm ? FINDINGS: ? LOWER CHEST: The visualized lung bases are clear. There is no pleural ?? effusion. ? CARDIOVASCULATURE: The heart is normal in size. ??There is no ?? pericardial effusion. ? LIVER: ??The liver is normal in size and contour, but demonstrates ?? diffusely decreased attenuation, consistent with steatosis. ??No liver ?? mass is identified. ??The hepatic and portal veins are patent. ? GALLBLADDER / BILE DUCTS: ??The gallbladder is unremarkable. There is no ?? intra or extrahepatic biliary ductal dilatation. ? SPLEEN: The spleen is normal in size. No focal splenic lesion is ?? identified. ? PANCREAS: The pancreas is unremarkable in appearance. ? ADRENAL GLANDS: Within normal limits. ? KIDNEYS/RETROPERITONEUM: No renal calculi are identified. There is no ?? hydronephrosis. ??There are bilateral renal cysts measuring 3.6 cm at ?? the upper pole of the right kidney and 1.4 cm the lower pole of the ?? left kidney. ? LYMPH NODES: ??No abdominal or pelvic lymphadenopathy. ? VASCULATURE: ??The abdominal aorta demonstrates atherosclerotic ?? calcification, but is normal in caliber. ? MESENTERY/PERITONEUM: No free fluid. No masses. ??There is no free ?? intraperitoneal gas. ? STOMACH: ??The stomach is unremarkable. ? SMALL BOWEL: ?? The small bowel is normal in caliber. ? COLON: ??The colon is unremarkable. ? APPENDIX: ??The appendix is not seen, however no inflammatory changes ?? are seen adjacent to the cecum. ? URINARY BLADDER/PELVIC ORGANS: The urinary bladder is unremarkable. ? The prostate is normal in size. ? BONES / SOFT TISSUES: ??No suspicious bony or soft tissue abnormalities. ? CT/CT abdomen pelvis w IV con ?? IMPRESSION: ?? Hepatic steatosis. No inflammatory process is identified. ? Electronically signed by: ??Sam Ibrahim MD ??07/07/2024 05:48 PM EDT ?? RP ? Dictated By: ?Sam Ibrahim MD ? Signed By: ?<Electronically signed by Sam Ibrahim MD in OV> ?07/07/24 1748 ? DD/ 1113 ? TD/TT: 07/07/24 1136 ? Cooler Worker: ? Procedure Note Donotuseinterpreter, Image - 07/07/[address] [address] [address] Scan Report Signed Patient: Jimmy Leavitt#: [id number] 2111 : 1965Acct:[id number] Age/Sex: 59 / MADM Date: 07/07/24 Loc: HO.CT Attending Dr: Kendra Joya MD Ordering Physician: Kendra Joya MD Date of Service: 07/07/24 Procedure(s): CT abdomen pelvis w IV con Accession Number(s): [id number] cc: Hanna Wheat MD; Kendra Joya MD Report Number: [id number]: Total DLP = 598.00 mGy-cm EXAMINATION: CT ABDOMEN PELVIS WITH IV CONTRAST HISTORY: generalized abdominal pain. r/o diverticulitis COMPARISON: Comparison is made with the prior examination dated 11/02/2023. TECHNIQUE: CT scan of the abdomen and pelvis was performed following administration of 85 mL Omnipaque 350 using standard departmental protocol. Coronal and sagittal reformatted images were generated and reviewed. The patient received oral contrast material. This CT exam was performed with one or more of the following dose reduction techniques: automated exposure control, adjustment of the mA and/or kV according to patient size, use of iterative reconstruction technique. DLP: 598 mGy-cm FINDINGS: LOWER CHEST: The visualized lung bases are clear. There is no pleural effusion. CARDIOVASCULATURE: The heart is normal in size. There is no pericardial effusion. LIVER: The liver is normal in size and contour, but demonstrates diffusely decreased attenuation, consistent with steatosis. No liver mass is identified. The hepatic and portal veins are patent. GALLBLADDER / BILE DUCTS: The gallbladder is unremarkable. There is no intra or extrahepatic biliary ductal dilatation. SPLEEN: The spleen is normal in size. No focal splenic lesion is identified. PANCREAS: The pancreas is unremarkable in appearance. ADRENAL GLANDS: Within normal limits. KIDNEYS/RETROPERITONEUM: No renal calculi are identified. There is no hydronephrosis. There are bilateral renal cysts measuring 3.6 cm at the upper pole of the right kidney and 1.4 cm the lower pole of the left kidney. LYMPH NODES: No abdominal or pelvic lymphadenopathy. VASCULATURE: The abdominal aorta demonstrates atherosclerotic calcification, but is normal in caliber. MESENTERY/PERITONEUM: No free fluid. No masses. There is no free intraperitoneal gas. STOMACH: The stomach is unremarkable. SMALL BOWEL: The small bowel is normal in caliber. COLON: The colon is unremarkable. APPENDIX: The appendix is not seen, however no inflammatory changes are seen adjacent to the cecum. URINARY BLADDER/PELVIC ORGANS: The urinary bladder is unremarkable. The prostate is normal in size. BONES / SOFT TISSUES: No suspicious bony or soft tissue abnormalities. CT/CT abdomen pelvis w IV con IMPRESSION: Hepatic steatosis. No inflammatory process is identified. Electronically signed by: Sam Ibrahim MD 07/07/2024 05:48 PM EDT Dictated By: Sam Ibrahim MD Signed By: <Electronically signed by Sam Ibrahim MD in OV> 07/07/24 1748 DD/ 1113 TD/TT: 07/07/24 1136 Cooler Worker: Kendra Joya MD [facility] CT PROCEDURES Edited Result - Final * Creatinine, Serum (07/05/2024 11:33 AM EDT) Creatinine, Serum 0.98 0.5 - 1.4 mg/dL [facility] Estimated Glomerular Filt Rate >60 [facility] Comment:Chronic Kidney Disea se: Estimated GFR < 60 mL/min/1.90f6Miycek Kidney Disease: Estimated GFR < 15 mL/min/1.73m2 Blood Venous blood specimen / Unknown 07/05/2024 11:33 AM EDT 07/05/2024 1:07 PM EDT Kendra Joya MD LAB BLOOD ORDERABLES Fin al Result Performing Organization Address [facility] Co de Phone Number [facility] [address] [place] [phone] * (ABNORMAL) BUN (Blood Urea Nitrogen) (07/05/2024 11:33 AM EDT) Urea Nitrogen (BUN) 23(H) 9 - 16 mg/dL [facility] Blood Venous blood specimen / Unknown 07/05/2024 11:33 AM EDT 07/05/2024 1:07 PM EDT Kendra Joya MD LAB BLOOD ORDERABLES Fin al Result Performing Organization Address [facility] Co de Phone Number [facility] [address] [place] [phone] * (ABNORMAL) Hepatic Function Panel (07/05/2024 11:33 AM EDT) Bilirubin, Total 0.5 0.0 - 1.0 mg/dL [facility] Bilirubin, Direct 0.1 0.0 - 0.5 mg/dL [facility] Aspartate Amino Transferase 35 5 - 37 U/L [facility] Alanine Aminotransferase 47(H) 0 - 40 U/L [facility] Total Protein 8.1(H) 6.5 - 8.0 g/dL [facility] Albumin Level 4.5 3.5 - 5.0 g/dL [facility] Alkaline Phosphatase 100 39 - 117 U/L [facility] Blood Venous blood specimen / Unknown 07/05/2024 11:33 AM EDT 07/05/2024 1:07 PM EDT Kendra Joya MD LAB BLOOD ORDERABLES Fin al Result [facility] [address] [place] [phone] [phone] * POCT urinalysis dipstick manually resulted [...] Blood Count 8.8 4.8 - 10.8 X10*3/uL [facility] Red Blood Count 6.09(H) 4.60 - 5.80 X10*6/uL [facility] Hemoglobin 16.7 14.0 - 18.0 g/dl [facility] Hematocrit 51.3 42.0 - 52.0 % [facility] Mean Corpuscular Volume 84.2 80.0 - 98.0 fL [facility] Mean Corpuscular Hemoglobin 27.4 27.0 - 33.0 pg [facility] Mean Corpuscular HGB Conc 32.6 31.0 - 36.0 g/dl [facility] Red Cell Distribution Width 14.0 11.0 - 16.0 % [facility] Platelet Count 347 160 - 400 X10*3/uL [facility] Mean Platelet Volume 10.2 9.4 - 12.4 fL [facility] Neutrophils Percent Auto 46.7 45 - 73 % [facility] Imm Gran Pct Auto 0.3 0.0 - 0.4 % [facility] Lymphocytes Percent Auto 42.7(H) 20 - 40 % [facility] Monocytes Percent Auto 5.7 2 - 11 % [facility] Eosinophils Percent Auto 3.6 0 - 4 % [facility] Basophils Percent Auto 1.0 0 - 2 % [facility] NRBC Pct Auto 0.0 0.0 - 0.2 /100WBC [facility] Neutrophils Absolute Auto 4.1 2.0 - 8.3 x10*3/uL [facility] Imm Gran Abs Auto 0.03 0.00 - 0.03 X10*3/uL [facility] Lymphocytes Absolute Auto 3.8 1.2 - 4.9 X10*3/uL [facility] Monocytes Absolute Auto 0.5 0.1 - 1.2 X10*3/uL [facility] Eosinophils Absolute Auto 0.3 0.0 - 0.4 X10*3/uL [facility] Basophils Absolute Auto 0.1 0.0 - 0.2 X10*3/uL [facility] NRBC Abs Auto 0.000 0.0 - 0.012 X10*3/uL [facility] Blood Venous blood specimen / Unknown 06/21/2024 11:43 AM EDT 06/21/2024 1:04 PM EDT us Kendra Joya MD LAB BLOOD ORDERABLES Fin al Result [facility] [address] [place] [phone] * (ABNORMAL) Comprehensive Metabolic Panel (06/21/2024 11:43 AM EDT) Sodium 138 135 - 145 mmol/L [facility] Potassium 3.9 3.3 - 5.1 mmol/L [facility] Chloride 106 96 - 108 mmol/L [facility] Carbon Dioxide 24 22 - 29 mmol/L [facility] Anion Gap 12 12 - 20 [facility] Urea Nitrogen (BUN) 20(H) 9 - 16 mg/dL [facility] Creatinine, Serum 1.01 0.5 - 1.4 mg/dL [facility] Estimated Glomerular Filt Rate >60 [facility] Comment:Chronic Kidney Disea se: Estimated GFR < 60 mL/min/1.13m4Kptxsb Kidney Disease: Estimated GFR < 15 mL/min/1.73m2 Glucose 132(H) 60 - 115 mg/dL [facility] Calcium 10.1 8.4 - 10.2 mg/dL [facility] Bilirubin, Total 0.4 0.0 - 1.0 mg/dL [facility] Aspartate Amino Transferase 33 5 - 37 U/L [facility] Alanine Aminotransferase 45(H) 0 - 40 U/L [facility] Total Protein 8.2(H) 6.5 - 8.0 g/dL [facility] Albumin Level 4.5 3.5 - 5.0 g/dL [facility] Alkaline Phosphatase 117 39 - 117 U/L [facility] Blood Venous blood specimen / Unknown 06/21/2024 11:43 AM EDT 06/21/2024 1:04 PM EDT us Kendra Joya MD LAB BLOOD ORDERABLES Fin al Result [facility] [address] [place] [phone] [phone] * XR Knee 3 Views Left (05/21/2024 4:27 PM EDT) Anatomical Region Laterality Modality Lower Extremities, Knee Left Radiogra phic Imaging 05/21/2024 4:27 PM EDT Narrative 05/21/2024 4:27 PM EDT ? [facility] ?[address] ?[place] [address] ?XRay Report ? Signed ? Patient: Tree,Brannon ?MR#: [id number] ?? 2111 ? : 1965 ?Acct:[id number] ? Age/Sex: 59 / M ?ADM Date: 03/14/25 ? Loc: HO.XRAY ? Attending Dr: Sangita Adhikari MD ? Ordering Physician: Sangita Adhikari MD ?? Date of Service: 05/21/24 ?? Procedure(s): XR knee LT 3V ?? Accession Number(s): [id number] ? cc: Sangita Adhikari MD; Hanna Wheat MD ? CLINICAL HISTORY: M17.0 - Bilateral primary osteoarthritis of knee ? 3 view bilateral knee 3 view Left knee ? Comparison: CR - KNEE LEFT 4 VIEWS [id number] - 06/24/15 10:31 EDT ? Findings: ?? [...] Aditya Tejada MD in OV> ? 05/21/24 1627 ? DD/ 26 ? TD/TT: 05/21/241626 ? Cooler Worker: ? Procedure Note Nani Medrano - 05/21/2024 [place] [address] XRay Report Signed Patient: Jimmy Levaitt#: [id number] 2111 : 1965Acct:[id number] Age/Sex: 59 / MADM Date: 05/21/24 Loc: HO.MARY Attending Dr: Sangita Adhikari MD Ordering Physician: Sangita Adhikari MD Date of Service: 05/21/24 Procedure(s): XR knee LT 3V Accession Number(s): [id number] cc: Sangita Adhikari MD; Hanna Wheat MD CLINICAL HISTORY: M17.0 - Bilateral primary osteoarthritis of knee 3 view bilateral knee 3 view Left knee Comparison: CR - KNEE LEFT 4 VIEWS [id number] - 06/24/15 10:31 EDT Findings: Bones intact. No dislocations. Tricompartmental periarticular osteophyte formation, indicating osteoarthritis. No joint effusion. No radiopaque foreign body. IMPRESSION: 1. No acute findings. This document has been electronically signed by: Aditya Tejada MD on 05/21/2024 16:27:10 Dictated By: Aditya Tejada MD Signed By: <Electronically signed by Aditya Tejada MD in OV> 05/21/24 1627 DD/ 26 TD/TT: 05/21/241626 Cooler Worker: us [facility] External Provider IMG XR PROCEDURES Final Result * XR Knee 3 Views Right (05/21/2024 4:25 PM EDT) Anatomical Region Laterality Modality Lower Extremities, Knee Right Radiogra phic Imaging 05/21/2024 4:25 PM EDT Narrative 05/21/2024 4:26 PM EDT ? [facility] ?[address] ?[place] [address] ?XRay Report ? Signed ? Patient: Brannon Leavitt ?MR#: [id number] ?? 2111 ? : 1965 ?Acct:[id number] ? Age/Sex: 59 / M ?ADM Date: 05/21/24 ? Loc: HO.XRAY ? Attending Dr: Sangita Adhikari MD ? Ordering Physician: Sangita Adhikari MD ?? Date of Service: 05/21/24 ?? Procedure(s): XR knee RT 3V ?? Accession Number(s): [id number] ? cc: Sangita Adhikari MD; Hanna Wheat [...] by Aditya Tejada MD in OV> ? 05/21/246 ? DD/ ? TD/TT: 05/21/245 ? Cooler Worker: ? Procedure Note Mitchell, Image - 05/21/[address] [address] XRay Report Signed Patient: Jimmy Leavitt#: [id number] 2111 : 1965Acct:[id number] Age/Sex: 59 / MADM Date: 05/21/24 Loc: HO.XRAY Attending Dr: Sangita Adhikari MD Ordering Physician: Sangita Adhikari MD Date of Service: 05/21/24 Procedure(s): XR knee RT 3V Accession Number(s): [id number] cc: Sangita Adhikari MD; Hanna Wheat MD [...] in OV> 05/21/24 1626 DD/ 1625 TD/TT: 05/21/24 1625 Cooler Worker: [facility] External Provider IMG XR PROCEDURES Final Result * (ABNORMAL) Lipid Panel with Reflex to Direct LDL (05/21/2024 9:57 AM EDT) Triglycerides 346(H) <150 mg/dL [facility] Comment:Desirable Triglyceri de: less than 150 mg/dLBorderline High Triglyceride 150-199 mg/dLHigh Triglyceride: 200-499 mg/dLVery High Triglyceride: greater than or equal to 5OO mg/dL Cholesterol 241(H) <200 mg/dL [facility] Comment:Desirable Cholestero l: less than 200 mg/dLBorderline High Cholesterol: 200-239 mg/dLHigh Cholesterol: greater than 239 mg/dL LDL Cholesterol Calculated 139(H) <100 mg/dL [facility] Comment:Desirable LDL: less than 100 mg/dLNear Optimal/Above Optimal LDL: 110- 129 mg/dLBorderline High LDL: 130-159 mg/dLHigh LDL: 160-189 mg/dLVery High LDL: greater than or equal to 190 mg/dL HDL Cholesterol 33(L) >40 mg/dL [facility] Comment:Desirable HDL: great er than 40 mg/dL Note: This HDL assay may give artificially low results in patients with liver disease. Blood 05/21/2024 9:57 AM EDT 05/21/2024 9:57 AM EDT Hanna Kimball MD LAB BLOOD ORDERABLES Final Result Performing Organization Address City/State/[facility] Co de Phone Number [facility] [address] [place] [phone] * (ABNORMAL) POCT HGB A1C (09/12/2023 9:34 AM EDT) Hemoglobin A1C 6.4(A) 4.0 - 6.0 % QC Media Lot # [id number] Lot# Expiration Date ,026 Blood 09/12/2023 9:34 AM EDT Hanna Kimball [...] Creatinine, Urine 137 20 - 320 mg/dL [facility] 02/05/2021 2:07 PM EST Hanna Kimball MD LAB URINE ORDERABLES Final Result [facility] [address] [place] [address], * Hm Colonoscopy (05/28/2020) Historical Provider HEALTH MAINTENANCE Final Result from Last 3 Months or Most Recently Relevant to Health Maintenance [facility] Care Teams Air Defense Specialist Relationship Specialty Start Date End Date Hanna Wheat MD [address] [place] [phone] PCP - General Family Medicine 10/30/18 Concetta Garcia First CrusherCoating Technician 11/28/22 Concetta Garcia First CrusherCoating Technician 05/13/24
--- OUTSIDE RECORDS SUMMARY | 2024-07-08 11:10 | XMS_ITS | Encounter Summary ---
Author Organization [employer] [facility] Address [address] [place] [address] 7 [place] [address] Care Team Providers Care Guest Services Assistant Name Role Phone Hanna Wheat MD Primary Care Provide r Reason for Visit * Reason Comments Med Refill Encounter Details Date Type Department Care Team ([facility] st Contact Info) Description 08/24/2022 Refill [facility] MEDICINE 230 [place], [place] [phone] Kendra Joya MD 230 [place], [place] [phone] Atherosclerosis of coronary artery of campo heart with stable angina pectoris, unspecified vessel [...] Diagnoses Diagnosis 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
--- OUTSIDE RECORDS SUMMARY | 2024-07-08 11:10 | XMS_ITS | Encounter Summary ---
Author Organization [employer] [facility] Address [address] [place] [address] [address] [address] Care Team Providers Care Technical Sales Representatives Name Role Phone Hanna Wheat MD Primary Care Provide r Reason for Visit * Reason Comments Med Refill Encounter Details Date Type Department Care Team ([facility] [place] st Contact Info) Description 08/24/[address] [facility] MEDICINE 230 [place], [place] [phone] Ellie Wheeler MD 230 [place], [place] [phone] Type 2 diabetes mellitus without complication, unspecified whether terminal clerk insulin use ([facility]); Dyslipidemia Social History Tobacco Use Types [...] 2 diabetes mellitus without complication, unspecified whether custodial insulin use (CMS/[facility]) Dyslipidemia Other and unspecified hyperlipidemia documented in this encounter Care Teams Technical Sales Representatives Relationship Specialty Start Date End Date Hanna Wheat MD [address] [place] [address] PCP - General Family Medicine 10/30/18 Concetta Garcia Electrical SuperintendentInstrument Lens Grinder 11/28/22 Concetta Garcia Electrical SuperintendentInstrument Lens Grinder 05/13/24 documented as of this encounter
--- OUTSIDE RECORDS SUMMARY | 2024-07-08 11:10 | XMS_ITS | Encounter Summary ---
Author Organization [employer] Address [address] [facility] 7 [place] [address] Care Team Providers Care Roof Technician Name Role Phone Hanna Wheat MD Primary Care Provide r Reason for Visit * Reason Comments Med Refill Encounter Details Date Type Department Care Team ([facility] st Contact Info) Description 12/09/2023 Refill [facility] MEDICINE 230 [place], [place] [phone] Hanna Wheat MD 230 [place], [place] [phone] Primary osteoarthritis of both knees Social History [...] documented as of this encounter Care Teams Roof Technician Relationship Specialty Start Date End Date Hanna Wheat MD [address] [place] [address] PCP - General Family Medicine 10/30/18 Concetta Garcia Welt CutterFinished Stock Inspector 11/28/22 Concetta Garcia Welt CutterFinished Stock Inspector 05/13/24 documented as of this encounter
--- OUTSIDE RECORDS SUMMARY | 2024-07-08 11:10 | XMS_ITS | Encounter Summary ---
Author Organization [employer] Address [address] [place] [address] [place] [address] Care Team Providers Care Program Clinician Name Role Phone Hanna Wheat MD Primary Care Provide r Encounter Details Date Type Department Care Team (Late st Contact Info) Description 07/07/2022 Orders Only [facility] MEDICINE 230 [place] [address] Kendra Joya MD 230 [place] [address] Social History Tobacco Use Types Packs/Day Years [...] on filedocumented in this encounter Care Teams Program Clinician Relationship Specialty Start Date End Date Hanna Wheat MD 230 [place] [address] PCP - General Family Medicine 10/30/18 Concetta Garcia Rail Maintenance WorkerDirector Data 11/28/22 Concetta Garcia Rail Maintenance WorkerDirector Data 05/13/24 documented as of this encounter
--- OUTSIDE RECORDS SUMMARY | 2024-07-08 11:10 | XMS_ITS | Encounter Summary ---
Author Organization [employer] Address [address] [place] [address] 7 [place] [address] Care Team Providers Care Ve Teacher Name Role Phone Hanna Wheat MD Primary Care Provide r Reason for Visit * Reason Comments Med Refill Encounter Details Date Type Department Care Team ([facility] st Contact Info) Description 11/07/2022 Refill [facility] [address] [place] [address] Shukri Carney MD 230 [place] [address] Seasonal allergies; Low back pain, unspecified back [...] present documented in this encounter Care Teams Ve Teacher Relationship Specialty Start Date End Date Hanna Wheat MD [address] [place] [address] PCP - General Family Medicine 10/30/18 Concetta Garcia Director Audience MarketingDeck Worker 11/28/22 Concetta Garcia Director Audience MarketingDeck Worker 05/13/24 documented as of this encounter
--- OUTSIDE RECORDS SUMMARY | 2024-07-08 11:10 | XMS_ITS | Clinical Summary ---
Author Organization [facility] Address [address] [place] [address] Care Team Providers Care Assistant Project Engineer Name Role Phone Hanna Wheat MD Primary Care Provide r Surgical History Surgery Date Site/Laterality Comments CARDIAC CATHETERIZATION PROCEDURE: HISTORICAL CARDIAC CATH; COMMENT: Cath Jan 2014 s/p mult stents at [facility] APPENDECTOMY PROCEDURE: HISTORICAL APPENDECTOMY HERNIA REPAIR PROCEDURE: HISTORICAL HERNIA REPAIR/UMB OTHER SURGICAL HISTORY PROCEDURE: ---- OTHER ----; COMMENT: sinus surgery COLONOSCOPY 2014 PROCEDURE: HISTORICAL COLONOSCOPY; COMMENT: repeat in 5 yrs, per patient, at [facility] Medical History Medical History Date Comments Atrial fibrillation (CMS/HCC V24, CMS/HCC V28) 11/27/2015 DX:Atrial fibrillation ([facility]) ; COMMENT: During hospital admission at [facility] Nov 2015, reverted to sinus wiith meds, f/u Cardio at [place], will have 30day loop recorder, off anticoagulation per cardiology CAD (coronary artery disease) 10/27/2015 DX :CAD (coronary artery disease); COMMENT: Cath Jan 2014, s/p multiple stent at [facility], Dr Luo, Several stress tests, echos [...] age to complete this topic Care Teams Assistant Project Engineer Relationship Specialty Start Date End Date Hanna Wheat MD [address] [place] [phone] PCP - General 03/20/23
--- OUTSIDE RECORDS SUMMARY | 2024-07-08 11:10 | XMS_ITS | Encounter Summary ---
Author Organization [employer] [facility] Address [address] [place] [address] 7 [place] [address] Care Team Providers Care Electric Car Operator Name Role Phone Hanna Wheat MD [...] on filedocumented in this encounter Care Teams Electric Car Operator Relationship Specialty Start Date End Date Hanna Wheat MD [address] [place] [address] PCP - General Family Medicine 10/30/18 Concetta Garcia Database Marketing SpecialistAt Risk Paraprofessional 11/28/22 Concetta Garcia Database Marketing SpecialistAt Risk Paraprofessional 05/13/24 documented as of this encounter
--- OUTSIDE RECORDS SUMMARY | 2024-07-08 11:10 | XMS_ITS | Encounter Summary ---
Author Organization [employer] [facility] Address [address] [place] [address] [address] [address] Care Team Providers Care Longwall Foreman Name Role Phone Hanna Wheat MD Primary Care Provide r Reason for Visit * Reason Comments Med Refill Encounter Details Date Type Department Care Team ([facility] st Contact Info) Description 11/06/2022 Refill [facility] MEDICINE 230 [place], [place] [phone] Shukri Carney MD 230 [place] [address] Social History Tobacco Use Types Packs/Day Years [...] on filedocumented in this encounter Care Teams Longwall Foreman Relationship Specialty Start Date End Date Hanna Wheat MD 230 [place], [place] [phone] PCP - General Family Medicine 10/30/18 Concetta Garcia Stage ElectricianVan Cdl Driver 11/28/22 Concetta Garcia Stage ElectricianVan Cdl Driver 05/13/24 documented as of this encounter
== END 2024-07-08 10:41 | disposition home or self-care (01) ==
LOC: HO.HCS 09:58
PROVIDERS: PCP Internal Medicine; Visit Provider Nurse Practitioner Family
DX: I10 Essential (primary) hypertension (principal); I25.10 Atherosclerotic heart disease of native coronary artery without angina pectoris; Z98.890 Other specified postprocedural states; I48.92 Unspecified atrial flutter
CPT/HCPCS: 99214

== ENCOUNTER → 2024-07-08 09:58 | Outpatient (BNVA) | payer MEDICAID, SELFPAY | PROVIDERS: PCP Internal Medicine; Visit Provider Nurse Practitioner Family | DX: I10 Essential (primary) hypertension (principal); I25.10 Atherosclerotic heart disease of native coronary artery without angina pectoris; I48.92 Unspecified atrial flutter; Z98.890 Other specified postprocedural states | CPT/HCPCS: 99212 ==

== ENCOUNTER 2024-07-28 12:03 | Outpatient (AMB) | payer MEDICAID, SELFPAY ==
[2024-07-28 12:05] VITALS: BP 159/79; PULSE 77; O2SAT 96; BMI 36.5
--- NOTE | 2024-07-28 12:05 | A.OFFVIS_ITS ---
Vital Signs 07/28/24 12:05 Height 5 ft 9 in Weight 247 lb BMI 36.5 BP 159/79 H Blood Pressure Location Lt brachial Position Sitting Pulse 77 Pulse Oximetry (%) 96 Oxygen Delivery Method Room Air Intake Visit Reasons: colo screening Intake Note: Patient follow up for pre colonoscopy screening. Patient denies any GI issues for today visit, patient said he feeling much better with the medication give by you/Alondra. Security Intelligence Analyst Required: Yes Accompanied by: Self / Same As Patient Allergies Iodinated Contrast Media [IV CONTRAST] Allergy (Intermediate, Verified 07/28/24 12:06) Difficulty Breathing Penicillins Allergy (Mild, Verified 07/28/24 12:06) RASH Sulfa (Sulfonamide Antibiotics) Allergy (Mild, Verified 07/28/24 12:06) RASH codeine Adverse Reaction (Mild, Verified 07/28/24 12:06) STOMACH UPSET Docusate Calcium Allergy (Mild, Uncoded 07/28/24 12:05) rash HPI HPI colo screening: Details: LAST VISIT: Gastroparesis Gastroesophageal reflux disease Postprandial abdominal bloating RLQ abdominal pain LLQ abdominal pain Epigastric pain Screen for colon cancer Plan Patient reports to be feeling much better and is able to move his bowels well. Denies any abdominal pain or discomfort. Patient denies any chest pain or shortness of breath. Has cardiology appointment end of this month will ask for clearance. Patient is on aspirin and Eliquis. Will need to stop Eliquis for 48 hours before procedure if cleared. Patient denies any issues with anesthesia in the past. No history of sleep apnea. What to expect before during and after procedure discussed with patient. The importance of clear liquid diet and good bowel prep stressed with patient. I will see him after the procedure, sooner on as needed basis. Patient is agreeable to this plan and verbalizes understanding of instructions. He was given the opportunity to ask questions and all questions answered. TODAY'S VISIT Patient is here today for follow-up. Patient reports that he has been doing better since last seen. Taking Nexium daily and his symptoms of acid reflux have been suppressed. Patient denies any melena, hematochezia. Denies any dyspepsia, dysphagia or odynophagia. Denies any cardiac or respiratory symptoms. Patient denies any abdominal pain or discomfort. Has CT scan next week that was order by his PCP. Patient no longer has any abdominal pain or discomfort [facility] Medical History (Updated 07/08/24 @ 10:54 by Kecia Cartwright NP-C) CAD (coronary artery disease) Carpal tunnel syndrome on both sides Bilateral primary osteoarthritis of knee Hypertension Osteoarthritis TIA (transient ischemic attack) Chest pain Gastroparesis Anal fistula Low back pain Perianal abscess History of panic attacks Hx of myocardial infarction Arthritis GERD (gastroesophageal reflux disease) Scoliosis Asthma Tubular adenoma Migraines Seizures Depression Diabetes Adhesive capsulitis of left shoulder Atrial flutter Cellulitis Surgical History History of incision and drainage (~10/19/21) History of umbilical hernia repair History of esophagogastroduodenoscopy (EGD) H/O colonoscopy History of open heart surgery History of sinus surgery History of appendectomy History of angioplasty Family History Father No problems noted. Mother History of stomach cancer History of liver cancer Brother No problems noted. 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 manager care management to a significant other at home: Yes (children) Do you presently have visiting nurse or other home services: No Alcohol intake: current Alcohol intake frequency: holidays/special occasions only Alcohol type: beer Patient Tobacco Use Status: Never used Tobacco Advance Directives Date on File: 05/15/22 service: No Current occupational status: disabled Review of Systems Const Denies weight gain and Denies weight loss ENT Reports no additional complaints, Denies dysphagia and Denies odynophagia Card Reports no additional complaints Resp Reports no additional complaints GI Denies abdominal pain, Denies belching, Denies melena, Denies bloating, Denies change in bowel habits, Denies dysphagia, Denies excessive flatus, Denies dyspepsia, Denies heartburn, Denies diarrhea, Denies loose stools, Denies nausea, Denies odynophagia and Denies vomiting Reports no additional complaints Musc Reports no additional complaints Neuro Reports no additional complaints Psych Reports no additional complaints Endo Reports no additional complaints Physical Exam Vital Signs: Last Vital Signs Pulse 77 07/28/24 12:05 BP 159/79 H 07/28/24 12:05 Pulse Ox 96 07/28/24 12:05 Oxygen Delivery Method Room Air 07/28/24 12:05 BMI result Body Mass Index 36.5 Const General: healthy appearing and no acute distress Nutritional Appearance: obese Orientation/consciousness: patient oriented x3 Resp Effort & Inspection: normal respiratory effort, able to speak in complete sentences, no tracheal deviation and symmetric chest movement Auscultation: clear to auscultation bilaterally Cardio Rate: regular rate GI Inspection: Yes normal to inspection, No distended and Yes obesity Palpation (GI): Soft to palpation, not firm, nontender and No hepatosplenomegaly present Auscultation: normal bowel sounds General: Yes no CVA tenderness Back/Spine/Pelvis Back: no CVA tenderness Skin General skin exam: elasticity normal, turgor normal and dry skin Neuro General: patient oriented x3 Psych Appearance: grossly normal Mental Status: mental status grossly normal Assessment & Plan Assessment & Plan (1) Gastroesophageal reflux disease: Code(s): K21.9 - Gastro-esophageal reflux disease without esophagitis Category: Medical Qualifiers: Esophagitis presence: without esophagitis Qualified Code(s): K21.9 - Gastro-esophageal reflux disease without esophagitis (2) Gastroparesis: Code(s): K31.84 - Gastroparesis Category: Medical (3) Postprandial abdominal bloating: Code(s): R14.0 - Abdominal distension (gaseous) (4) RLQ abdominal pain: Code(s): R10.31 - Right lower quadrant pain (5) LLQ abdominal pain: Code(s): R10.32 - Left lower quadrant pain (6) Epigastric pain: Code(s): R10.13 - Epigastric pain (7) Screen for colon cancer: Code(s): Z12.11 - Encounter for screening for malignant neoplasm of colon Plan Patient will continue taking Nexium. Avoid dietary triggers and late night snacking. Staying upright for minimum 3 hours after meals discussed with patient. Message sent to Cardiology for clearance. Patient denies any issues with anesthesia in the past. Currently he is on Eliquis will need to stop it 48 hours before procedure when cleared. What to expect before during and after procedure discussed with patient. Stressed the importance of clear liquid diet and good bowel prep. Will order extra Dulcolax so patient can take it 1 week before procedure. I will see him after the procedure, sooner on as needed basis. He is agreeable to this plan and verbalizes understanding of instruct ions. He was given the opportunity to ask questions and all questions answered. Thank you for allowing me to participate in his care Medications: New bisacodyl (Dulcolax (bisacodyl)) Start taking 2 tablet every night 7 days before the procedure and 1 day before procedure take 4 tablets at noon time followed by MiraLax prep 10 mg (2 x 5 mg) PO BEDTIME 16 tabs 0RF Z12.11 - Encounter for screening for malignant neoplasm of colon polyethylene glycol 3350 (Miralax) As directed by gastroenterology department at [facility] 238 grams PO ONCE 238 grams 0RF Z12.11 - Encounter for screening for malignant neoplasm of colon Refilled esomeprazole magnesium (Nexium) 40 mg PO DAILY@0630 90 caps 3RF Coding Level of Care Code Est Pt Level 3 (14177) Diagnoses Gastroesophageal reflux disease without esophagitis K21.9 Esophagitis presence: without esophagitis Gastroparesis K31.84 Postprandial abdominal bloating R14.0 RLQ abdominal pain R10.31 LLQ abdominal pain R10.32 Epigastric pain R10.13 Screen for colon cancer Z12.11 Time Spent (min) 30 Comment 20 minutes spent with patient and additional 10 minutes spent reviewing his records
--- OUTSIDE RECORDS SUMMARY | 2024-07-28 13:05 | XMS_ITS | Encounter Summary ---
Author Organization [facility] Address [address] [place] [address] [place] [address] Care Team Providers Care Erp Programmer Name Role Phone Hanna Wheat MD Primary Care Provide r Encounter Details Date Type Department Care Team (Late st Contact Info) Description 11/15/2022 Orders Only [facility] MEDICINE [address] [place] [address] [phone] Provider, MD Jacinto Social History Tobacco Use [...] as of this encounter Plan of Treatment Upcoming Encounters Date Type Department Care Team (Late st Contact Info) Description 09/09/2024 11:30 AM EDT Telemedicine [facility] MEDICINE [address] [place] [address] [phone] Hanna Wheat MD [address] [place] [address] [phone] documented as of this encounter Procedures Procedure Name Priority Date/Time Associated Diagnosis Comments HM COLONOSCOPY Routine 05/28/2020 documented in this encounter Results * Hm Colonoscopy (05/28/2020) Historical Provider HEALTH MAINTENANCE Final Result documented in this encounter Visit Diagnoses Not on filedocumented in this encounter Care Teams Erp Programmer Relationship Specialty Start Date End Date Hanna Wheat MD [address] [place] [address] PCP - General Family Medicine 10/30/18 Concetta Garcia Software Quality Assurance AnalystSilver Spray Worker 11/28/22 Concetta Garcia Software Quality Assurance AnalystSilver Spray Worker 05/13/24 documented as of this encounter
--- OUTSIDE RECORDS SUMMARY | 2024-07-28 13:05 | XMS_ITS | Encounter Summary ---
Author Organization [employer] Address [address] [place] [address] 7 [place] [address] Care Team Providers Care Agile Java Developer Name Role Phone Hanna Wheat MD Primary Care Provide r Encounter Details Date Type Department Care Team (Latest Contact Info) Description 07/26/2021 Abstract [facility] CONVERSIONS Dental, Provider, DDS Social History Tobacco [...] Info) Description 09/09/2024 11:30 AM EDT Telemedicine [facility] MEDICINE 230 [place] [address] Hanna Wheat MD [address] [place] [address] documented as of this encounter Visit Diagnoses Not on filedocumented in this encounter Care Teams Agile Java Developer Relationship Specialty Start Date End Date Hanna Wheat MD [address] [place] [address] PCP - General Family Medicine 10/30/18 Concetta Garcia Phosphoric Acid SupervisorPattern Finisher 11/28/22 Concetta Garcia Phosphoric Acid SupervisorPattern Finisher 05/13/24 documented as of this encounter
--- OUTSIDE RECORDS SUMMARY | 2024-07-28 13:05 | XMS_ITS | Encounter Summary ---
Author Organization [employer] Address [address] [place] [address] 7[address] [place] [address] Care Team Providers Care Senior Software Engineer Name Role Phone Hanna Wheat MD Primary Care Provide r Reason for Visit * Reason Comments Med Refill Encounter Details Date Type Department Care Team (Late Contact Info) Description 08/24/2022 Refill [facility] MEDICINE 230 [place], [place] [phone] Ellie Wheeler MD 230 [place], [place] [phone] Type 2 diabetes mellitus without complication, unspecified whether detention insulin use ([facility]); Dyslipidemia Social History [...] Encounters Date Type Department Care Team (Late Contact Info) Description 09/09/2024 11:30 AM EDT Telemedicine [facility] MEDICINE [address] [place] [address] Hanna Wheat MD [address] [place] [address] documented as of this encounter Visit Diagnoses Diagnosis Type 2 diabetes mellitus without complication, unspecified whether long term care social worker insulin use ([facility]) Dyslipidemia Other and unspecified hyperlipidemia documented in this encounter Care Teams Senior Software Engineer Relationship Specialty Start Date End Date Hanna Wheat MD [address] [place] [address] PCP - General Family Medicine 10/30/18 Concetta Garcia Greenskeeper HeadHost/Hostess Ground 11/28/22 Concetta Garcia Greenskeeper HeadHost/Hostess Ground 05/13/24 documented as of this encounter
--- OUTSIDE RECORDS SUMMARY | 2024-07-28 13:05 | XMS_ITS | Clinical Summary ---
Author Organization [facility] Address [address] [place] [address] [place] [address] Phone Care Team Providers Care Events Director Name Role Phone Unavailable Primary Care [...] Quadrivalent, With Preservative 11/29 Influenza, Unspecified 11/27/2015,12/20/2013, [employer] SARS-COV-2 05/31/2020 Pfizer SARS-COV-2 12/18/2021,06/21/2021 Pneumococcal Conjugate [...]
--- OUTSIDE RECORDS SUMMARY | 2024-07-28 13:05 | XMS_ITS | Encounter Summary ---
Author Organization [employer] Address [address] [place] [address] 7[place], [place] [address] Care Team Providers Care Cellular Tower Climber Name Role Phone Hanna Wheat MD Primary Care Provide r Encounter Details Date Type Department Care Team (Late st Contact Info) Description 07/07/2022 Orders Only [facility] MEDICINE [address] [place] [phone] Kendra Joya MD [address] [place] [address] [phone] Social History Tobacco Use Types Packs/Day Years [...] Info) Description 09/09/2024 11:30 AM EDT Telemedicine [facility] MEDICINE [address] [place] [phone] Hanna Wheat MD [address] [place], [place] [phone] documented as of this encounter Visit Diagnoses Not on filedocumented in this encounter Care Teams Cellular Tower Climber Relationship Specialty Start Date End Date Hanna Wheat MD [address] [place] [address] PCP - General Family Medicine 10/30/18 Concetta Garcia Checkroom AttendantProject Management Professor 11/28/22 Concetta Garcia Checkroom AttendantProject Management Professor 05/13/24 documented as of this encounter
--- OUTSIDE RECORDS SUMMARY | 2024-07-28 13:05 | XMS_ITS | Encounter Summary ---
Author Organization [employer] Address [address] [place] [address] 7[place] [address] Care Team Providers Care Business Analyst Intern Name Role Phone Hanna Wheat MD Primary Care Provide r Reason for Visit * Reason Comments Med Refill Encounter Details Date Type Department Care Team (Late st Contact Info) Description 11/06/2022 Refill [facility] MEDICINE [address] [place] [address] [phone] Shukri Carney MD [address] [place] [address] [phone] Social History Tobacco Use Types Packs/Day Years [...] EDT Telemedicine [facility] MEDICINE 230 [place], [place] [phone] Hanna Wheat MD 230 [place], [place] [phone] documented as of this encounter Visit Diagnoses Not on filedocumented in this encounter Care Teams Business Analyst Intern Relationship Specialty Start Date End Date Hanna Wheat MD [address] [place] [phone] PCP - General Family Medicine 10/30/18 Concetta Garcia Batt Machine OperatorCommunity Development Worker 11/28/22 Concetta Garcia Batt Machine OperatorCommunity Development Worker 05/13/24 documented as of this encounter
--- OUTSIDE RECORDS SUMMARY | 2024-07-28 13:05 | XMS_ITS | Encounter Summary ---
Author Organization [employer] Address [address] [facility] [address] [place] [address] Care Team Providers Care Compressor Engineer Name Role Phone Hanna Wheat MD Primary Care Provide r Reason for Visit * Reason Comments Med Refill Encounter Details Date Type Department Care Team ([facility] st Contact Info) Description 07/16/2024 Refill [facility] [address] [place], [place] [phone] Kendra Joya MD [address] [place] [phone] Social History Tobacco Use Types Packs/Day Years [...] Info) Description 09/09/2024 11:30 AM EDT Telemedicine [facility] [address] [place] [address] Hanna Wheat MD [address] [place] [address] documented as of this encounter Visit Diagnoses Not on filedocumented in this encounter Additional Health Concerns Assessment Noted Time PHQ-9 Depression Total Score: 0 05/16/19 24 9:06 AM EST documented as of this encounter Care Teams Compressor Engineer Relationship Specialty Start Date End Date Hanna Wheat MD [address] [place] [address] PCP - General Family Medicine 10/30/18 Concetta Garcia Supervisor [employer] 11/28/22 Concetta Garcia Supervisor [employer] 05/13/24 documented as of this encounter
--- OUTSIDE RECORDS SUMMARY | 2024-07-28 13:05 | XMS_ITS | Clinical Summary ---
Author Organization [facility] Address [address] [place] [address] Care Team Providers Care Forming Department Supervisor Name Role Phone Hanna Wheat MD [...] repeat in 5 yrs, per patient, at [facility] Medical History Medical History Date Comments Atrial fibrillation (CMS/HCC V24, CMS/HCC V28) 11/27/2015 DX:Atrial fibrillation ([facility]) ; COMMENT: During hospital admission at [facility] Nov 2015, reverted to sinus wiith meds, f/u Cardio at [place], will have 30day loop recorder, off anticoagulation [...] age to complete this topic Care Teams Forming Department Supervisor Relationship Specialty Start Date End Date Hanna Wheat MD [address] [place] [phone] PCP - General 03/20/23
--- OUTSIDE RECORDS SUMMARY | 2024-07-28 13:05 | XMS_ITS | Encounter Summary ---
Author Organization [employer] Address [address] [place] [address] [address] [place] [address] Care Team Providers Care Mobile Health Vehicle Operator Name Role Phone Hanna Wheat MD Primary Care Provide r Reason for Visit * Reason Comments Med Refill Encounter Details Date Type Department Care Team ([facility] Contact Info) Description 11/07/2022 Refill [facility] [address] [place] [address] Shukri Carney MD [address] [place] [phone] Seasonal allergies; Low back pain, unspecified back [...] Upcoming Encounters Date Type Department Care Team ([facility] Contact Info) Description 09/09/2024 11:30 AM EDT Telemedicine [facility] [address] [place] [address] Hanna Wheat MD [address] [place] [address] documented as of this encounter Visit Diagnoses Diagnosis Seasonal allergies Allergic rhinitis, cause unspecified Low back pain, unspecified back pain laterality, unspecified chronicity, unspecified whether sciatica present documented in this encounter Care Teams Mobile Health Vehicle Operator Relationship Specialty Start Date End Date Hanna Wheat MD [address] [place] [phone] PCP - General Family Medicine 10/30/18 Concetta Garcia [employer] Help Desk Officer 11/28/22 Concetta Garcia [employer] Help Desk Officer 05/13/24 documented as of this encounter
--- OUTSIDE RECORDS SUMMARY | 2024-07-28 13:05 | XMS_ITS | Clinical Summary ---
Author Organization [employer] Address [address] [facility] [address] [place] [address] Care Team Providers Care Storage Management Consultant Name Role Phone Hanna Wheat MD [...] CALL 911 OR GO TO EMERGENCY ROOM. 022 Active Wheat Dextrin (benefiber drink mix) packet MIX 1 PACKET IN 4 OUNCES IN WATER OR JUICE AND DRINK DAILY DIRECTED Active colchicine 0.6 MG tabletIndication s:Low back pain, unspecified back pain laterality, unspecified chronicity, unspecified whether sciatica present take one daily 30 tablet Active Blood Glucose Monitoring Suppl (FreeStyle Lite) deviceIndication s:Type 2 diabetes mellitus without complication, without long-term current use of insulin ([facility]) Inject 1 each under the skin 2 [...] 2 diabetes mellitus without complication, 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 ([facility]/HCC) TAKE 1 TABLET BY MOUTH TWICE DAILY IN THE MORNING AND IN THE EVENING 180 tablet 1 Active metoprolol tartrate (Lopressor) 50 MG tabletIndication s: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, unspecified vessel or lesion type ([facility]) TAKE 1 AND 1/2 TABLETS BY MOUTH TWICE DAILY IN THE MORNING AND IN THE EVENING 270 tablet 1 024 Active glipiZIDE XL (Glucotrol XL) 10 MG 24 hr tabletIndication s:Type 2 diabetes mellitus without complication, unspecified whether snf insulin use ([facility]) TAKE 1 TABLET BY MOUTH TWICE DAILY IN THE MORNING AND IN THE EVENING WITH MEALS 180 tablet 1 024 Active fenofibrate (Triglide) 160 MG tabletIndication s:Dyslipidemia [...] hyperglycemia, without long-term current use of insulin ([facility]) TAKE 1 TABLET BY MOUTH EVERY MORNING 90 tablet 1 024 Active esomeprazole (NexIUM) [address] capsule TAKE 1 CAPSULE BY MOUTH EVERY MORNING AT 630 024 Active allopurinol (Zyloprim) 100 MG tablet Take 100 mg by mouth in the morning. Active Linzess 145 MCG capsule Take 1 capsule by mouth Once per day. 024 Active isosorbide mononitrate ER (Imdur) 30 MG 24 hr tablet Take 30 mg by mouth at bedtime. 024 Active FREESTYLE LITE test stripIndications :Type 2 diabetes mellitus with hyperglycemia, without long-term current use of insulin ([facility]) USE DIRECTED TO TEST BLOOD SUGAR TWICE DAILY 50 strip 11 025 Active empagliflozin (Jardiance) 10 MGIndications:Ty pe 2 diabetes mellitus with hyperglycemia, without long-term current use of insulin ([facility]) TAKE 1 TABLET BY MOUTH EVERY MORNING 90 tablet 1 025 Active Trulicity 3 MG/0.5ML solution auto-injectorInd ications:Type 2 diabetes mellitus with other specified complication (CMS/HCC) INJECT ONE PEN (= 3MG) SUBCUTANEOUSLY ONCE A WEEK DIRECTED 2 mL 3 Active cholecalciferol (D3 Super Strength) 50 MCG (2000 UT) capsuleIndicatio ns:Low back pain, unspecified back pain laterality, unspecified chronicity, unspecified whether sciatica present TAKE 1 CAPSULE BY MOUTH EVERY MORNING 90 capsule 1 025 Active acetaminophen (Tylenol 8 Hour) 650 MG ER tablet TAKE 2 TABLETS BY MOUTH EVERY 8 HOURS NEEDED FOR MILD PAIN 40 tablet 1 025 Active baclofen (Lioresal) 20 MG tabletIndication s:Chronic bilateral low back pain without sciatica,Muscle spasm Take 1 tablet (20 mg) by mouth 3 times daily. 90 tablet 025 2024 Active Arnuity Ellipta 100 MCG/ACT inhaler INHALE 1 PUFF BY MOUTH EVERY DAY AT THE SAME TIME RINSE MOUTH AFTER USING 30 each 3 025 Active methocarbamol (Robaxin) 750 MG tabletIndication s:Muscle spasm Take 1 tablet (750 mg) by mouth 4 times daily for 10 days. 40 tablet 024 2024 Discontinued fluticasone furoate (Arnuity Ellipta) 100 MCG/ACT inhaler INHALE 1 PUFF BY MOUTH EVERY DAY AT THE SAME TIME RINSE MOUTH AFTER USING. 30 each 3 024 2024 Discontinued acetaminophen (Tylenol 8 Hour) 650 MG ER tabletIndication s:Primary osteoarthritis of both knees TAKE 2 TABLETS BY MOUTH EVERY 8 HOURS NEEDED FOR MILD PAIN 40 tablet 1 025 2024 Discontinued(R eorder (will not trigger notification to Pharmacy)) oxyCODONE (Roxicodone) 5 MG immediate release tabletIndication s:Acute bilateral thoracic back pain Take 1 tablet (5 mg) by mouth every 6 (six) hours if needed for severe pain for up to 5 days. 15 tablet 025 2024 ibuprofen 800 MG tabletIndication s:Chronic bilateral low back pain without sciatica,Muscle spasm Take 1 tablet (800 mg) by mouth every 8 (eight) hours if needed for mild pain for up to 10 days. 21 tablet 025 2024 Active Problems Problem Noted Date Diagnosed Date Chronic bilateral low back pain without sciatica 07/15/2024 Assessment & Plan (07/15/2024 4:49 PM EDT): I will prescribe for patient baclofen 20 mg 3 times a day he is aware of side effect somnolence he cannot drive while taking this medication I am also prescribing ibuprofen 800 mg every 8 hours with full stomach apply heat on affected area and local pain patches Colon cancer screening 07/15/2024 Pain of upper abdomen 07/05/2024 Assessment & [...] Lumbar disc disease 10/24/2023 Muscle spasm 05/16/2023 Assessment & Plan (07/15/2024 4:49 PM EDT): Apply heat on the affected area I will prescribe for patient baclofen 20 mg 3 times a day he is aware of side effects somnolence and that he cannot drive while taking this medication I will prescribe for patient also short course of ibuprofen 800 mg every 8 hours with full stomach Onychomycosis 03/07/2023 Primary osteoarthritis of both knees [...] with neurological manif estations 10/29/2016 Overview (05/02/2022): [facility] CTS Diverticulosis 10/29/2016 Overview (05/02/2022): CT 03/10/2015 sigmoid, Renal cyst 10/29/2016 Overview (05/02/2022): On CT Hemorrhoids 05/24/2016 Atrial fibrillation 11/27/2015 Gastroesophageal reflux disease 10/27/2015 Overview (05/02/2022): Small sliding hiatal hernia Atherosclerosis of coronary artery 12/04/2011 Overview (05/21/2022): Cath Jan 2014, s/p multiple stent at [facility], Dr Luo, Several stress tests, echos Complicated migraine 12/04/2011 Overview (05/02/2022): 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, 2005, Dr Whiting, on Neurontin Type 2 diabetes mellitus wit h hyperglycemia, without long-term current use of insulin 12/04/2011 Overview (05/02/2022): Mild atherosclerotic disease of distal aorta and its branches CT 01/13/2014 Assessment & Plan (07/15/2024 4:50 PM EDT): Diabetes is: controlled - Lab Results Component Value Date HGBA1C 6.9 (A) 07/15/2024 HGBA1C 6.4 (A) 09/12/2023 HGBA1C 7.1 (A) 05/16/2023 - Lab Results Component Value Date MICROALBUR 3.7 02/05/2021 CREATININE 0.98 07/05/2024 -Changes: None - Diabetic eye exam: Up-to-date - Diabetic foot exam: Up-to-date - Continue lifestyle modifications - Continue current medications - Follow up: 3 months Assessment & Plan (09/12/2023 1:13 PM EDT): [...] Encounters Date Type Department Care Team Description 07/25/2024 Refill [facility] [address] [place] [address] Hanna Wheat MD 07/16/2024 Refill [facility] [address], [place] [phone] Kendra Joya MD 07/15/2024 3:15 PM EDT Office Visit [facility] [address] [place] [phone] Hanna Wheat MD Type 2 diabetes mellitus with hyperglycemia, without long-term current use of insulin (CMS/HCC) (Primary Dx); Type 2 diabetes mellitus without complication, without long-term current use of insulin (CMS/HCC); Chronic bilateral low back pain without sciatica; Muscle spasm; Colon cancer screening 07/15/2024 Travel 07/14/2024 Telephone [facility] [address] [place] [phone] Hanna Wheat MD Chart Prep 07/09/2024 Telephone [facility] [address] [place] [phone] Mckenna Kelly RN Results (Scan of abdomen on 07/07/2024 did not show any kidney stones, pancreatic lesions or any suspicious intra-abdominal lymphadenopathies or diverticulitis, no significant bony abnormalities on the spine and he has fatty liver which is not responsible for patient's symptoms. Please call patient and check for his health status check, if he continues with similar symptoms, he will need to follow-up with PCP or go to ED) 07/05/2024 11:20 AM EDT Office Visit [facility] [address] [phone] Kendra Joya MD Acute bilateral thoracic back pain (Primary Dx); Pain of upper abdomen 06/29/2024 Telephone [facility] [address] [place] [address] [phone] Kendra Joya MD 06/21/2024 10:40 AM EDT Office Visit [facility] [address] [phone] Kendra Joya MD Generalized abdominal pain (Primary Dx); Low back pain with radiation 05/27/2024 Refill [facility] [address] [place], [place] [phone] Hanna Wheat MD Low back pain, unspecified back pain laterality, unspecified chronicity, unspecified whether sciatica present 05/25/2024 Refill [facility] [address] [place] [address] Hanna Wheat MD Type 2 diabetes mellitus with other specified complication (CMS/HCC) 05/21/2024 Orders Only [facility] External Provider, [facility] 05/21/2024 Population Health Risk Score Community [facility] ([facility]) Department [address] [phone] Provider, Population Health Generic 05/13/2024 Patient Outreach [facility] [address] [place] [address] Hanna Wheat MD Care Coordination (ICP Care Plan) 05/04/2024 Refill [facility] [address] [place] [address] Hanna Wheat MD Primary osteoarthritis of both knees from Last 3 Months Immunizations Immunization Administration Dates Next Due HepB-CpG 08/14/2022,05/28/2022 INFLUENZA [...] Sign Reading Time Taken Comments Blood Pressure 128/74 07/15/2024 2:42 PM EDT Pulse 91 07/15/2024 2:42 PM EDT Temperature 36.4 ??C (97.6 ??F) 07/15/2024 2:42 PM ED T Respiratory Rate 24 07/15/2024 2:42 PM EDT Oxygen Saturation 97% 07/15/2024 2:42 PM EDT Inhaled Oxygen Concentration - - Weight 112 kg (247 lb 6 oz) 07/15/2024 2:42 PM E DT Height 175.3 cm (5' 9 ) 07/15/2024 2:42 PM EDT Body Mass Index 36.53 07/15/2024 2:42 PM EDT Plan of Treatment Upcoming Encounters Date Type Department Care Team (Late st Contact Info) Description 09/09/2024 11:30 AM EDT Telemedicine [facility] [address] [place] [address] Hanna Wheat MD [address] [place] [address] Health Maintenance Due Date Last Done Comments CT Colonography 1965 FIT DNA/Cologuard 1965 FIT 1965 FOBT 1965 HIV Screening 1965 Sigmoidoscopy 1965 Disability Screening 1964 Diabetes: Foot Exam 1974 Alcohol/Substance Use [...] series) 2024 Depression Screening 05/15/2024 05/16/2023, 05/16/19 SDOH Screening 09/01/2024 09/02/2023 Diabetes: Hemoglobin A1C 01/15/2025 025, 09/12/2023, 05/16/2023, Additional history exists Lipid Panel 05/21/2025 05/21/2024, 08/02/2020 Tobacco Screening 07/15/2025 07/15/2024 Eye Exam 03/19/2026 03/19/2024, 03/10, 03/19/2024, Additional [...] Diagnosis Comments POCT GLYCATED HEMOGLOBIN, TOTAL Routine 07/15/2024 3:27 PM EDT Type 2 diabetes mellitus without complication, without long-term current use of insulin ([facility]) POCT GLUCOSE Routine 07/15/2024 2:43 PM EDT Type 2 diabetes mellitus without complication, without long-term current use of insulin (CMS/HCC) CT ABDOMEN PELVIS W CONTRAST Routine 07/07/2024 [...] Routine 05/21/2024 9:57 AM EDT Primary hypertension ALBUMIN, RANDOM URINE W/CREATININE Routine 02/05/2021 2:07 PM EST HM COLONOSCOPY Routine 05/28/2020 from Last 3 Months or Most Recently Relevant to Health Maintenance Results * (ABNORMAL) POCT HGB A1C (07/15/2024 3:27 PM EDT) Hemoglobin A1C 6.9(A) 4.0 - 6.0 % QC Media Lot # [id number] Lot# Expiration Date 11,727 Blood 07/15/2024 3:27 PM EDT us Hanna Kimball MD POINT OF CARE TEST EN TER/EDIT ORDERABLES Final Result * POCT Glucose (07/15/2024 2:43 PM EDT) Glucose Blood, POC 130 60 - 200 mg/dL QC Media Lot # [id number] Lot# Expiration Date 101,526 Blood Capillary blood specimen / Unknown 07/15/2024 2:43 PM EDT us Hanna Kimball MD POINT OF CARE TEST EN TER/EDIT ORDERABLES Final Result * CT Abdomen Pelvis w/ Contrast (07/07/2024 11:13 AM EDT) Anatomical Region Laterality Modality Body, Pelvis, Abdomen Computed T omography 07/07/2024 11:1 3 AM EDT Narrative 07/07/2024 5:51 PM EDT ? [facility] ?[address] ?[place] [address] ? CT Scan Report ? Signed ? Patient: Brannon Leavitt ?MR#: [id number] ?? 2111 ? : 1965 ?Acct:[id number] ? Age/Sex: 59 / M ?ADM Date: 07/07/24 ? Loc: HO.CT ? Attending Dr: Kendra Joya MD ? Ordering Physician: Kendra Joya MD ?? Date of Service: 07/07/24 ?? Procedure(s): CT abdomen pelvis w IV con ?? Accession Number(s): [id number] ? cc: Hanna Wheat MD; Kendra Joya MD ? Report Number: ?? [id number]: Total DLP = ??598.00 mGy-cm ?? EXAMINATION: [...] DD/ 1113 ? TD/TT: 07/07/24 1136 ? Hot Roll Inspector: ? Procedure Note Mitchell, Image - 07/07/[address] [place] [address] [address] Scan Report Signed Patient: Jimmy Leavitt#: [id number] 2111 : 1965Acct:[id number] Age/Sex: 59 / MADM Date: 07/07/24 Loc: HO.CT Attending Dr: Kendra Joya MD Ordering Physician: Kendra Joya MD Date of Service: 07/07/24 Procedure(s): CT abdomen pelvis w IV con Accession Number(s): [id number] cc: Hanna Wheat MD; Kendra Joya MD Report Number: [id number]: Total DLP = 598.00 mGy-cm EXAMINATION: CT [...] 07/07/24 1748 DD/ 1113 TD/TT: 07/07/24 1136 Hot Roll Inspector: Kendra Joya MD [facility] CT PROCEDURES Edited Result - Final * Creatinine, Serum (07/05/2024 11:33 AM EDT) Creatinine, Serum 0.98 0.5 - 1.4 mg/dL [facility] Estimated Glomerular Filt Rate >60 [facility] Comment:Chronic Kidney Disea se: Estimated GFR < 60 mL/min/[id number] Kidney Disease: Estimated GFR < 15 mL/min/1.73m2 Blood Venous blood specimen / Unknown 07/05/2024 11:33 AM EDT 07/05/2024 1:07 PM EDT Kendra Joya MD LAB BLOOD ORDERABLES Fin al Result Performing Organization Address [facility]/ZIP Co de Phone Number [facility] [address] [place] [phone] * (ABNORMAL) BUN (Blood Urea Nitrogen) (07/05/2024 11:33 AM EDT) Urea Nitrogen (BUN) 23(H) 9 - 16 mg/dL [facility] Blood Venous blood specimen / Unknown 07/05/2024 11:33 AM EDT 07/05/2024 1:07 PM EDT us Kendra Joya MD LAB BLOOD ORDERABLES Fin al Result Performing Organization Address City/[facility]/ZIP Co de Phone Number [facility] [address] [place] [phone] * (ABNORMAL) Hepatic Function Panel (07/05/2024 11:33 AM EDT) Bilirubin, Total 0.5 0.0 - 1.0 mg/dL [facility] Bilirubin, Direct 0.1 0.0 - 0.5 mg/dL [facility] Aspartate Amino Transferase 35 5 - 37 U/L [facility] Alanine Aminotransferase 47(H) 0 - 40 U/L [facility] Total Protein 8.1(H) 6.5 - 8.0 g/dL [facility] Albumin Level 4.5 3.5 - 5.0 g/dL [facility] Alkaline Phosphatase 100 39 - 117 U/L [facility] Blood Venous blood specimen / Unknown 07/05/2024 11:33 AM EDT 07/05/2024 1:07 PM EDT Kendra Joya MD LAB BLOOD ORDERABLES Fin al Result [facility] [address] [place] [phone] * POCT urinalysis dipstick manually resulted [...] Blood Count 8.8 4.8 - 10.8 X10*3/uL [facility] Red Blood Count 6.09(H) 4.60 - 5.80 X10*6/uL [facility] Hemoglobin 16.7 14.0 - 18.0 g/dl [facility] Hematocrit 51.3 42.0 - 52.0 % [facility] Mean Corpuscular Volume 84.2 80.0 - 98.0 fL [facility] Mean Corpuscular Hemoglobin 27.4 27.0 - 33.0 pg [facility] Mean Corpuscular HGB Conc 32.6 31.0 - 36.0 g/dl [facility] Red Cell Distribution Width 14.0 11.0 - 16.0 % [facility] Platelet Count 347 160 - 400 X10*3/uL [facility] Mean Platelet Volume 10.2 9.4 - 12.4 fL [facility] Neutrophils Percent Auto 46.7 45 - 73 % [facility] Imm Gran Pct Auto 0.3 0.0 - 0.4 % [facility] Lymphocytes Percent Auto 42.7(H) 20 - 40 % [facility] Monocytes Percent Auto 5.7 2 - 11 % [facility] Eosinophils Percent Auto 3.6 0 - 4 % [facility] Basophils Percent Auto 1.0 0 - 2 % [facility] NRBC Pct Auto 0.0 0.0 - 0.2 /100WBC [facility] Neutrophils Absolute Auto 4.1 2.0 - 8.3 x10*3/uL [facility] Imm Gran Abs Auto 0.03 0.00 - 0.03 X10*3/uL [facility] Lymphocytes Absolute Auto 3.8 1.2 - 4.9 X10*3/uL [facility] Monocytes Absolute Auto 0.5 0.1 - 1.2 X10*3/uL [facility] Eosinophils Absolute Auto 0.3 0.0 - 0.4 X10*3/uL [facility] Basophils Absolute Auto 0.1 0.0 - 0.2 X10*3/uL [facility] NRBC Abs Auto 0.000 0.0 - 0.012 X10*3/uL [facility] Blood Venous blood specimen / Unknown 06/21/2024 11:43 AM EDT 06/21/2024 1:04 PM EDT us Kendra Joya MD LAB BLOOD ORDERABLES Fin al Result [facility] [address] [place] [phone] * (ABNORMAL) Comprehensive Metabolic Panel (06/21/2024 11:43 AM EDT) Sodium 138 135 - 145 mmol/L [facility] Potassium 3.9 3.3 - 5.1 mmol/L [facility] Chloride 106 96 - 108 mmol/L [facility] Carbon Dioxide 24 22 - 29 mmol/L [facility] Anion Gap 12 12 - 20 [facility] Urea Nitrogen (BUN) 20(H) 9 - 16 mg/dL [facility] Creatinine, Serum 1.01 0.5 - 1.4 mg/dL [facility] Estimated Glomerular Filt Rate >60 [facility] Comment:Chronic Kidney Disea se: Estimated GFR < 60 mL/min/1.25j2Qcniep Kidney Disease: Estimated GFR < 15 mL/min/1.73m2 Glucose 132(H) 60 - 115 mg/dL [facility] Calcium 10.1 8.4 - 10.2 mg/dL [facility] Bilirubin, Total 0.4 0.0 - 1.0 mg/dL [facility] Aspartate Amino Transferase 33 5 - 37 U/L [facility] Alanine Aminotransferase 45(H) 0 - 40 U/L [facility] Total Protein 8.2(H) 6.5 - 8.0 g/dL [facility] Albumin Level 4.5 3.5 - 5.0 g/dL [facility] Alkaline Phosphatase 117 39 - 117 U/L [facility] Blood Venous blood specimen / Unknown 06/21/2024 11:43 AM EDT 06/21/2024 1:04 PM EDT us Kendra Joya MD LAB BLOOD ORDERABLES Fin al Result [facility] [address] [place] [phone] * XR Knee 3 Views Left (05/21/2024 4:27 PM EDT) Anatomical Region Laterality Modality Lower Extremities, Knee Left [facility] 05/21/2024 4:27 PM EDT Narrative 05/21/2024 4:27 PM EDT ? [facility] ?[address] ?[place] [address] ?XRay Report ? Signed ? Patient: Tree,Brannon ?MR#: [id number] ?? 2111 ? : 1965 ?Acct:[id number] ? Age/Sex: 59 / M ?ADM Date: 05/21/24 ? Loc: HO.XRAY ? Attending Dr: Sangita Adhikari MD ? Ordering Physician: Sangita Adhikari MD ?? Date of Service: 05/21/24 ?? Procedure(s): XR knee LT 3V ?? Accession Number(s): [id number] ? cc: Sangita Adhikari MD; Hanna Wheat MD ? CLINICAL HISTORY: M17.0 - Bilateral primary osteoarthritis of knee ? 3 view bilateral knee 3 view Left knee ? Comparison: CR - KNEE LEFT 4 VIEWS [id number] - 06/24/15 10:31 EDT ? Findings: ?? [...] MD in OV> ? 05/21/241626 ? DD/ 26 ? TD/TT: 05/21/241626 ? Hot Roll Inspector: ? Procedure Note Mitchell, Image - 05/21/[address] [address] XRay Report Signed Patient: Jimmy Leavitt#: [id number] 2111 : 1965Acct:[id number] Age/Sex: 59 / MADM Date: 05/21/24 Loc: JING Attending Dr: Sangita Adhikari MD Ordering Physician: Sangita Adhikari MD Date of Service: 05/21/24 Procedure(s): XR knee LT 3V Accession Number(s): [id number] cc: Sangita Adhikari MD; Hanna Wheat MD CLINICAL HISTORY: M17.0 - Bilateral primary osteoarthritis of knee 3 view bilateral knee 3 view Left knee Comparison: CR - KNEE LEFT 4 VIEWS [id number] - 06/24/15 10:31 EDT Findings: Bones intact. No dislocations. Tricompartmental periarticular osteophyte formation, indicating osteoarthritis. No joint effusion. No radiopaque foreign body. IMPRESSION: 1. No acute findings. This document has been electronically signed by: Aditya Tejada MD on 05/21/2024 16:27:10 Dictated By: Aditya Tejada MD Signed By: <Electronically signed by Aditya Tejada MD in OV> 05/21/241626 DD/ 26 TD/TT: 05/21/241626 Hot Roll Inspector: [facility] External Provider IMG XR PROCEDURES Final Result * XR Knee 3 Views Right (05/21/2024 4:25 PM EDT) Anatomical Region Laterality Modality Lower Extremities, Knee Right Radiogra phic Imaging 05/21/2024 4:25 PM EDT Narrative 05/21/2024 4:26 PM EDT ? [facility] ?[address] ?[place] [address] ?XRay Report ? Signed ? Patient: Tree,Brannon ?MR#: [id number] ?? 2111 ? : 1965 ?Acct:[id number] ? Age/Sex: 59 / M ?ADM Date: 03/14/25 ? Loc: HO.XRAY ? Attending Agustin Adhikari MD ? Ordering Physician: Sangita Adhikari MD ?? Date of Service: 05/21/24 ?? Procedure(s): XR knee RT 3V ?? Accession Number(s): [id number] ? cc: Sangita Adhikari MD; Hanna Wheat [...] DD/ 1625 ? TD/TT: 05/21/24 1625 ? Hot Roll Inspector: ? Procedure Note Dondelroyter, Image - 05/21/2024 [place] [address] XRay Report Signed Patient: Jimmy Leavitt#: [id number] 2111 : 1965Acct:[id number] Age/Sex: 59 / MADM Date: 05/21/24 Loc: HO.DEVORAHAY Attending Dr: Sangita Adhikari MD Ordering Physician: Sangita Adhikari MD Date of Service: 05/21/24 Procedure(s): XR knee RT 3V Accession Number(s): [id number] cc: Sangita Adhikari MD; Hanna Wheat MD [...] signed by Aditya Tejada MD in OV> 05/21/241625 DD/ 24 TD/TT: 05/21/241624 Hot Roll Inspector: [facility] External Provider IMG XR PROCEDURES Final Result * (ABNORMAL) Lipid Panel with Reflex to Direct LDL (05/21/2024 9:57 AM EDT) Triglycerides 346(H) <150 mg/dL [facility] Comment:Desirable Triglyceri de: less than 150 mg/dLBorderline High Triglyceride 150-199 mg/dLHigh Triglyceride: 200-499 mg/dLVery High Triglyceride: greater than or equal to 5OO mg/dL Cholesterol 241(H) <200 mg/dL [facility] Comment:Desirable Cholestero l: less than 200 mg/dLBorderline High Cholesterol: 200-239 mg/dLHigh Cholesterol: greater than 239 mg/dL LDL Cholesterol Calculated 139(H) <100 mg/dL [facility] Comment:Desirable LDL: less than 100 mg/dLNear Optimal/Above Optimal LDL: 110- 129 mg/dLBorderline High LDL: 130-159 mg/dLHigh LDL: 160-189 mg/dLVery High LDL: greater than or equal to 190 mg/dL HDL Cholesterol 33(L) >40 mg/dL [facility] Comment:Desirable HDL: great er than 40 mg/dL Note: This HDL assay may give artificially low results in patients with liver disease. Blood 05/21/2024 9:57 AM EDT 05/21/2024 9:57 AM EDT us Hanna Kimball MD LAB BLOOD ORDERABLES Final Result [facility] [address] [place] [phone] * ALBUMIN, RANDOM URINE W/CREATININE (02/05/2021 2:07 [...] Creatinine, Urine 137 20 - 320 mg/dL [facility] 02/05/2021 2:07 PM EST Hanna Kimball MD LAB URINE ORDERABLES Final Result [facility] [address] [place] [address], * Hm Colonoscopy (05/28/2020) Historical Provider HEALTH MAINTENANCE Final Result from Last 3 Months or Most Recently Relevant to Health Maintenance [facility] Care Teams Storage Management Consultant Relationship Specialty Start Date End Date Hanna Wheat MD [address] [place] [address] PCP - General Family Medicine 10/30/18 Concetta Garcia Carpet Installation SpecialistPump Machine Operator 11/28/22 Concetta Garcia Carpet Installation SpecialistPump Machine Operator 05/13/24
--- OUTSIDE RECORDS SUMMARY | 2024-07-28 13:05 | XMS_ITS | Encounter Summary ---
Author Organization [employer] Address [address] [facility] [address] [place] [address] Care Team Providers Care Mover Helper Name Role Phone Hanna Wheat MD Primary Care Provide r Reason for Visit * Reason Comments Med Refill Encounter Details Date Type Department Care Team (Late st Contact Info) Description 08/24/2022 Refill [facility] [address] [place], [place] [phone] Kendra Joya MD [address] [place] [address] Atherosclerosis of coronary artery of [place] heart with stable angina pectoris, unspecified vessel [...] Info) Description 09/09/2024 11:30 AM EDT Telemedicine [facility] MED[facility] [address] [place] [address] Hanna Wheat MD [address] [place] [address] documented as of this encounter Visit Diagnoses Diagnosis Atherosclerosis of coronary artery of [place] heart with stable angina pectoris, unspecified vessel or lesion type ([facility]) documented in this encounter Care Teams Mover Helper Relationship Specialty Start Date End Date Hanna Wheat MD [address] [place] [address] PCP - General Family Medicine 10/30/18 Concetta Garcia Reprographics TechnicianShoeshiner 11/28/22 Concetta Garcia Reprographics TechnicianShoeshiner 05/13/24 documented as of this encounter
--- OUTSIDE RECORDS SUMMARY | 2024-07-28 13:05 | XMS_ITS | Encounter Summary ---
Author Organization [employer] Address [address] [facility] [address] [place] [address] Care Team Providers Care Flame Channeler Name Role Phone Hanna Wheat MD Primary Care Provide r Reason for Visit * Reason Comments Med Refill Encounter Details Date Type Department Care Team ([facility] st Contact Info) Description 12/09/2023 Refill [facility] [address] [place], [place] [phone] Hanna Wheat MD [address] [place], [place] [phone] Primary osteoarthritis of both knees Social History [...] Info) Description 09/09/2024 11:30 AM EDT Telemedicine [facility] [address] [place] [address] Hanna Wheat MD [address] [place] [address] documented as of this encounter Visit Diagnoses Diagnosis Primary osteoarthritis of both knees documented in this encounter Additional Health Concerns Assessment Noted Time PHQ-9 Depression Total Score: 0 05/16/19 24 9:06 AM EST documented as of this encounter Care Teams Flame Channeler Relationship Specialty Start Date End Date Hanna Wheat MD [address] [place] [address] PCP - General Family Medicine 10/30/18 Concetta Garcia Wallpaper InstallerAssistant Fitness Manager 11/28/22 Concetta Garcia Wallpaper InstallerAssistant Fitness Manager 05/13/24 documented as of this encounter
--- OUTSIDE RECORDS SUMMARY | 2024-07-28 13:05 | XMS_ITS | Encounter Summary ---
Author Organization [employer] Address [address] [facility] [address] [place] [address] Care Team Providers Care Media Planner Name Role Phone Hanna Wheat MD Primary Care Provide r Reason for Visit * Reason Comments Med Refill Encounter Details Date Type Department Care Team ([facility] st Contact Info) Description 07/25/[address] [facility] [address] [place], [place] [phone] Hanna Wheat MD [address] [place] [address] Social History Tobacco Use Types Packs/Day Years [...] Info) Description 09/09/2024 11:30 AM EDT Telemedicine [facility] MEDICINE [address] [place] [address] Hanna Wheat MD [address] [place] [address] documented as of this encounter Visit Diagnoses Not on filedocumented in this encounter Additional Health Concerns Assessment Noted Time PHQ-9 Depression Total Score: 0 05/16/19 24 9:06 AM EST documented as of this encounter Care Teams Media Planner Relationship Specialty Start Date End Date Hanna Wheat MD [address] [place] [address] PCP - General Family Medicine 10/30/18 Concetta Garcia Shaker Plate OperatorChemical Unit Operator 11/28/22 Concetta Garcia Shaker Plate OperatorChemical Unit Operator 05/13/24 documented as of this encounter
== END 2024-07-28 14:06 | disposition home or self-care (01) ==
LOC: HO.HGI 12:03
PROVIDERS: PCP Internal Medicine; Visit Provider Nurse Practitioner Family
DX: K21.9 Gastro-esophageal reflux disease without esophagitis (principal); K31.84 Gastroparesis; R14.0 Abdominal distension (gaseous); R10.31 Right lower quadrant pain; R10.32 Left lower quadrant pain; R10.13 Epigastric pain; Z12.11 Encounter for screening for malignant neoplasm of colon
CPT/HCPCS: 99213

== ENCOUNTER → 2024-07-28 12:03 | Outpatient (BNVA) | payer MEDICAID, SELFPAY | PROVIDERS: PCP Internal Medicine; Visit Provider Nurse Practitioner Family | DX: Z01.818 Encounter for other preprocedural examination (principal); K21.9 Gastro-esophageal reflux disease without esophagitis; K31.84 Gastroparesis; R14.0 Abdominal distension (gaseous); R10.31 Right lower quadrant pain; R10.32 Left lower quadrant pain; R10.13 Epigastric pain; Z79.82 Long term (current) use of aspirin; Z79.01 Long term (current) use of anticoagulants; Z79.899 Other long term (current) drug therapy | CPT/HCPCS: 99212 ==

== ENCOUNTER → 2024-09-22 13:54 | Outpatient (REF) | payer MEDICAID, SELFPAY ==
--- NOTE | 2024-09-22 13:57 | CA_ITS ---
Transthoracic Echocardiogram Patient (Last, First, Middle): Brannon Leavitt, Gender: Male Date of : 1965 Age: 59 Procedure Date: 09/22/2024 Procedure Type: Transthoracic Echocardiogram Location: OP Height: 175.26 cm Weight: 105.24 kg BSA: 2.20 m2 Heart Rate: bpm BP: 118 / 68 mmHg Video Game Animator: TO Referring MD: Kecia Cartwright CHEMICAL CELL CHANGERGloria Symptoms: I25.10 - Atherosclerotic heart disease of [place] coronary artery without... Study Quality: Fair/Contrast ECG Rhythm: Sinus Conclusions: - The left ventricular systolic function is normal. The calculated ejection fraction is 57% by biplane method. - Possible basal inferior / inferoseptal hypokinesis. - No obvious valvular pathology seen on this study. Findings Procedure Information Contrast agent, definity, is being given per protocol without apparent complications. Left Ventricle Normal left ventricular cavity size. The left ventricular systolic function is normal. The calculated ejection fraction is 57% by biplane method. There is mild septal asymmetric hypertrophy. Possible basal inferior / inferoseptal hypokinesis. Right Ventricle Mildly increased right ventricular cavity size. There is mildly decreased right ventricular systolic function. Atria Both atria are normal in size. Aortic Valve There is a normal trileaflet aortic valve. There is mild calcification of the aortic valve. There is no aortic valve stenosis. There is no aortic valve regurgitation. Mitral Valve The mitral valve appears normal. There is no mitral valve regurgitation. There is no mitral valve stenosis. Pulmonic Valve The pulmonic valve is likely normal. Tricuspid Valve There is trace tricuspid valve regurgitation. There is no evidence of pulmonary hypertension. Great Vessels The asc aorta is normal in size. Small plaque is seen in the sino tubular ridge. Venous The inferior vena cava is normal in size and collapses greater than 50% with inspiration. Pericardium/Pleural There is no evidence of pericardial effusion. Prior Study Comparison No significant change compared to prior study dated: 05/15/2022. On comparison of images, no significant change. Recommendations, Care & Conclusions No obvious valvular pathology seen on this study. Measurements 2D Linear Measurements IVSd: 1.22 0.6-0.9/0.6-1.0 cm LVIDd: 5.36 3.9-5.3/4.2-5.9 cm LVIDd Index: 2.44 2.4-3.2/2.2-3.1 cm/m2 LVIDs: 3.94 2.0-3.6 cm LVPWd: 0.98 0.7-1.1 cm LA Diam: 4.30 2.7-3.8/3.0-4.0 cm LAIDs Index: 1.95 1.5-2.3 cm/m2 LV Mass: 289.75 67-162/88-224 g LV Mass Index: 131.70 43-95/49-115 g/m2 LVOT Diam: 2.30 3.0+(-)1.3 cm 2D Systolic Function EF 4C: 59.60 >55% EF 2C: 52.80 >55% EF BiP: 56.70 >55% Mitral Valve MV Pk E: 0.65 MV PK A: 0.61 MV Decel Time: 197.00 E/A: 1.10 E'Lateral: 6.53 E'Medial: 5.00 E/E' Med: 12.90 E/E' Lat: 9.90 PHT: 58.00 MVA PHT: 3.79 Decel Saline: 3.29 Aortic Valve AoV Pk Stas: 1.91 AoV Mn Stas: 1.20 AoV VTI: 0.31 AoV Pk Grad: 15.00 Aov Mn Grad: 7.00 LESLY Cont.VTI: 2.18 LVOT LVOT Pk Stas: 0.95 LVOT Mn Stas: 0.57 LVOT VTI: 0.16 LVOT Pk Grad: 4.00 LVOT Mn Grad: 2.00 LVOT Diam: 2.30 LVOT Area: 4.15 Diastolic Function MV Pk E: 0.65 MV Pk A: 0.61 E/A: 1.10 E'Medial: 5.00 E/E' Med: 12.90 E' Laterial: 6.53 E/E' Lat: 9.90 Right Ventricle TAPSE (mm): 15.50 TVS' Stas: 9.36 Tricuspid Valve RA Press: 3.00 Great Vessels Aorta Sinus of Valsalva: 3.46 2.0-3.5 cm Ao Asc: 3.40 2.1-3.4 cm Updated in Other Vendor System with Status of Final Christian Dudley MD electronically signed on 09/24/2024 10:54:12 AM with status of Final
--- OUTSIDE RECORDS SUMMARY | 2024-09-22 14:45 | XMS_ITS | Clinical Summary ---
Author Organization [facility] Address [address] [place] [address] Care Team Providers Care Collections Analyst Name Role Phone Hanna Wheat MD Primary Care Provide r Surgical History Surgery Date Site/Laterality Comments CARDIAC CATHETERIZATION PROCEDURE: HISTORICAL CARDIAC CATH; COMMENT: Cath Jan 2014 s/p mult stents at [facility] APPENDECTOMY PROCEDURE: HISTORICAL APPENDECTOMY HERNIA REPAIR PROCEDURE: HISTORICAL HERNIA REPAIR/UMB OTHER SURGICAL HISTORY PROCEDURE: ---- OTHER ----; COMMENT: sinus surgery COLONOSCOPY 2014 PROCEDURE: HISTORICAL COLONOSCOPY; COMMENT: repeat in 5 yrs, per patient, at [place] Medical History Medical History Date Comments Atrial fibrillation (CMS/HCC V24, CMS/HCC V28) 11/27/2015 DX:Atrial fibrillation ([facility]) ; COMMENT: During hospital admission at [place] Nov 2015, reverted to sinus wiith meds, f/u Cardio at [place], will have 30day loop recorder, off anticoagulation per cardiology CAD (coronary artery disease) 10/27/2015 DX :CAD (coronary artery disease); COMMENT: Cath Jan 2014, s/p multiple stent at [facility], Dr Luo, Several stress tests, echos [...] 60-74 years 1-dose series) 2024 Influenza Vaccine (#1) 2024 9, 11/27/2015 DTaP,Tdap,and Td Vaccines (3 - Td [...] age to complete this topic Care Teams Collections Analyst Relationship Specialty Start Date End Date Hanna Wheat MD [address] [place] [phone] PCP - General 03/20/23
--- OUTSIDE RECORDS SUMMARY | 2024-09-22 14:45 | XMS_ITS | Clinical Summary ---
Author Organization [facility] Address [address] [place] [address] [place] [address] Phone Care Team Providers Care Health And Wellness Director Name Role Phone Unavailable Primary Care [...] Quadrivalent, With Preservative 11/29 Influenza, Unspecified 11/27/2015,12/20/2013, [facility] SARS-COV-2 05/31/2020 Pfizer SARS-COV-2 12/18/2021,06/21/2021 Pneumococcal Conjugate [...] 04/09/2023 01/07/2023, 07/0 09/2022 Influenza Vaccine (#1) 2024 , 12/18/2021, 12/28/2020, Additional history exists Pneumococcal Vaccine: Peds ( 0 to 5 Years) and At-Risk Patients (6 to 49 Years) Discontinued 10/21/2016, 10/08/2016, 02/11/2002 [place]
--- OUTSIDE RECORDS SUMMARY | 2024-09-22 14:45 | XMS_ITS | Clinical Summary ---
Author Organization [employer] Address [address] [facility] [address] [place] [address] Care Team Providers Care Senior Sales Operations Manager Name Role Phone Hanna Wheat MD [...] THE EVENING 022 Active TRUEplus Lancets [facility] TEST BLOOD SUGAR TWICE DAILY 023 Active [...] complication, without long-term current use of insulin ([facility]) Inject 1 each under the skin [...] TOPICALLY TWICE DAILY 100 g 1 Active esomeprazole (NexIUM) [address] capsule [...] hyperglycemia, without long-term current use of insulin ([facility]) USE DIRECTED TO TEST BLOOD SUGAR TWICE DAILY 50 strip 11 02/14/2 025 Active empagliflozin (Jardiance) 10 MGIndications:Typ e 2 diabetes mellitus with hyperglycemia, without long-term current use of insulin ([facility]) TAKE 1 TABLET BY MOUTH EVERY MORNING 90 tablet 025 Active Trulicity 3 MG/0.5ML solution auto-injectorIndi cations:Type 2 diabetes mellitus with other specified complication ([facility]) INJECT ONE PEN (= 3MG) SUBCUTANEOUSLY ONCE A WEEK DIRECTED 2 mL 3 Active cholecalciferol (D3 Super Strength) 50 MCG (2000 UT) capsuleIndication s:Low back pain, unspecified back pain laterality, unspecified chronicity, unspecified whether sciatica present TAKE 1 CAPSULE BY MOUTH EVERY MORNING 90 capsule 025 Active baclofen (Lioresal) 20 MG tabletIndications :Chronic bilateral low back pain without sciatica,Muscle spasm Take 1 tablet (20 mg) by mouth 3 times daily. 90 tablet 025 Active Arnuity Ellipta 100 MCG/ACT inhaler INHALE 1 PUFF BY MOUTH EVERY DAY AT THE SAME TIME RINSE MOUTH AFTER USING 30 each 3 025 Active amLODIPine (Norvasc) 10 MG tabletIndications :Primary hypertension TAKE 1 TABLET BY MOUTH EVERYDAY AT NOON 90 tablet 025 Active Aspirin Low Dose 81 MG EC tablet TAKE 1 TABLET BY MOUTH EVERY MORNING 90 tablet 025 Active atorvastatin (Lipitor) 80 MG tabletIndications :Mixed hyperlipidemia TAKE 1 TABLET BY MOUTH AT BEDTIME 90 tablet 025 Active fenofibrate (Triglide) 160 MG tabletIndications :Dyslipidemia TAKE 1 TABLET BY MOUTH EVERY EVENING 90 tablet 025 Active glipiZIDE XL (Glucotrol XL) 10 MG 24 hr tabletIndications :Type 2 diabetes mellitus without complication, unspecified whether terminal gauger supervisor insulin use ([facility]) TAKE 1 TABLET BY MOUTH TWICE DAILY IN THE MORNING AND IN THE EVENING WITH MEALS 180 tablet 025 Active losartan (Cozaar) 100 MG tabletIndications :Primary hypertension,Type 2 diabetes mellitus with hyperglycemia, without long-term current use of insulin ([facility]) TAKE 1 TABLET BY MOUTH EVERY MORNING 90 tablet 025 Active metFORMIN (Glucophage) 500 MG tabletIndications :Type 2 diabetes mellitus without complication, unspecified whether nursing home insulin use ([facility]) TAKE 1 TABLET BY MOUTH TWICE DAILY IN THE MORNING AND IN THE EVENING 180 tablet 1 025 Active metoprolol tartrate (Lopressor) 50 MG tabletIndications :Atherosclerosis of coronary artery of [place] heart with stable angina pectoris, unspecified vessel or lesion type (CMS/HCC) TAKE 1 AND 1/2 TABLETS BY MOUTH TWICE DAILY IN THE MORNING AND IN THE EVENING 270 tablet 1 025 Active niacin (Niaspan) 500 MG ER tabletIndications :Mixed hyperlipidemia TAKE 1 TABLET BY MOUTH AT BEDTIME 90 tablet 1 025 Active tamsulosin (Flomax) 0.4 MG 24 hr capsule TAKE 1 CAPSULE BY MOUTH EVERY MORNING 90 capsule 1 025 Active acetaminophen (Tylenol 8 Hour) 650 MG ER tablet TAKE 2 TABLETS BY MOUTH EVERY 8 HOURS NEEDED FOR MILD PAIN 40 tablet 1 025 Active tamsulosin (Flomax) 0.4 MG 24 hr capsule TAKE 1 CAPSULE BY MOUTH EVERY MORNING 90 capsule 1 024 2024 Discontinued amLODIPine (Norvasc) 10 MG tabletIndications :Primary hypertension TAKE 1 TABLET BY MOUTH EVERYDAY AT NOON 90 tablet 1 024 2024 Discontinued metFORMIN (Glucophage) 500 MG tabletIndications :Type 2 diabetes mellitus without complication, unspecified whether nursing home insulin use ([facility]) TAKE 1 TABLET BY MOUTH TWICE DAILY IN THE MORNING AND IN THE EVENING 180 tablet 1 024 2024 Discontinued metoprolol tartrate (Lopressor) 50 MG tabletIndications :Atherosclerosis of coronary artery of [place] heart with stable angina pectoris, unspecified vessel or lesion type ([facility]/HCC) TAKE 1 AND 1/2 TABLETS BY MOUTH TWICE DAILY IN THE MORNING AND IN THE EVENING 270 tablet 1 024 2024 Discontinued glipiZIDE XL (Glucotrol XL) 10 MG 24 hr tabletIndications :Type 2 diabetes mellitus without complication, unspecified whether terminal gauger supervisor insulin use ([facility]) TAKE 1 TABLET BY MOUTH TWICE DAILY IN THE MORNING AND IN THE EVENING WITH MEALS 180 tablet 1 024 2024 Discontinued fenofibrate (Triglide) 160 MG tabletIndications :Dyslipidemia TAKE 1 TABLET BY MOUTH EVERY EVENING (for cholesterol) 90 tablet 1 024 2024 Discontinued niacin (Niaspan) 500 MG ER tabletIndications :Mixed hyperlipidemia TAKE 1 TABLET BY MOUTH AT BEDTIME 90 tablet 1 024 2024 Discontinued atorvastatin (Lipitor) 80 MG tabletIndications :Mixed hyperlipidemia TAKE 1 TABLET BY MOUTH AT BEDTIME 90 tablet 1 024 2024 Discontinued aspirin (Aspirin Low Dose) 81 MG EC tablet TAKE 1 TABLET BY MOUTH EVERY MORNING 90 tablet 1 024 2024 Discontinued losartan (Cozaar) 100 MG tabletIndications :Primary hypertension,Type 2 diabetes mellitus with hyperglycemia, without long-term current use of insulin ([facility]) TAKE 1 TABLET BY MOUTH EVERY MORNING 90 tablet 1 024 2024 Discontinued acetaminophen (Tylenol 8 Hour) 650 MG ER tablet TAKE 2 TABLETS BY MOUTH EVERY 8 HOURS NEEDED FOR MILD PAIN 40 tablet 1 025 2024 Discontinued Active Problems Problem Noted Date Diagnosed Date Chest pain 09/09/2024 Assessment & Plan (09/09/2024 4:20 PM EDT): Resolved ED precautions reviewed F/u with cardiology Chronic bilateral low back pain without sciatica 07/15/2024 Assessment & Plan (09/09/2024 4:20 PM EDT): Apply heat on affected area PT referral today Assessment & Plan (07/15/2024 4:49 PM EDT): [...] Cath Jan 2014, s/p multiple stent at [facility], Dr Luo, Several stress tests, echos [...] bx 11/2012, benign, recommend rpt US 2015 Chronic gout 12/04/2011 Overview (05/21/2022): Multiple attacks [...] Encounters Date Type Department Care Team Description 09/13/2024 Refill [facility] [address] [place] [phone] Hanna Wheat MD 09/09/2024 11:30 AM EDT Telemedicine [facility] [address] [place] [phone] Hanna Wheat MD Chest pain, unspecified type; Chronic bilateral low back pain without sciatica 09/09/2024 Travel 09/09/2024 Patient Outreach [facility] [address] [place] [address] Hanna Wheat MD Care Coordination (C3- ED status check) 09/09/2024 Patient Outreach [facility] [address] [place] [phone] Hanna Wheat MD 09/08/2024 10:15 AM EDT Office Visit [facility] [address] [place], [place] [phone] Presbyopia of both eyes (Primary Dx) 09/08/2024 Telephone [facility] [address] [place] [address] Hanna Wheat MD Chart Prep 09/02/2024 Patient Outreach [facility] [address] [place] [address] Hanna Wheat MD Pre-visit Planning (SDOH will need to be completed in office. ) 08/29/2024 Refill [facility] [address] [place] [phone] Hanna Wheat MD Primary hypertension; Mixed hyperlipidemia; Dyslipidemia; Type 2 diabetes mellitus without complication, unspecified whether terminal gauger supervisor insulin use (CMS/HCC); Type 2 diabetes mellitus with hyperglycemia, without long-term current use of insulin (CMS/HCC); Atherosclerosis of coronary artery of [place] heart with stable angina pectoris, unspecified vessel or lesion type (CMS/HCC) 07/28/2024 Refill [facility] [address] [place] [phone] Kendra Joya MD 07/25/2024 Refill [facility] [address] [place] [address] Hanna Wheat MD 07/16/2024 Refill [facility] [address] [place] [phone] Kendra Joya MD 07/15/2024 3:15 PM EDT Office Visit [facility] [address] [place] [phone] Hanna Wheat MD Type 2 diabetes mellitus with hyperglycemia, without long-term current use of insulin (CMS/HCC) (Primary Dx); Type 2 diabetes mellitus without complication, without long-term current use of insulin (CMS/HCC); Chronic bilateral low back pain without sciatica; Muscle spasm; Colon cancer screening 07/15/2024 Travel 07/14/2024 Telephone [facility] [address] [place] [phone] Hanna Wheat MD Chart Prep 07/09/2024 Telephone [facility] [address] [place] [phone] Mckenna Kelly RN Results (Scan of abdomen [...] ED) 07/05/2024 11:20 AM EDT Office Visit [facility] [address] [place] [address] Kendra Joya MD Acute bilateral thoracic back pain (Primary Dx); Pain of upper abdomen 06/29/2024 Telephone [facility] [address] [place], [place] [phone] Kendra Joya MD from Last 3 Months Immunizations Immunization Administration [...] 91 07/15/2024 2:42 PM EDT Temperature 36.4 C (97.6 F) 07/15/2024 2:42 PM EDT Respiratory Rate 24 07/15/2024 2:42 PM EDT Oxygen Saturation 97% 07/15/2024 2:42 PM EDT Inhaled Oxygen Concentration - - Weight 112 kg (247 lb 6 oz) 07/15/2024 2:42 PM E DT Height 175.3 cm (5' 9 ) 07/15/2024 2:42 PM EDT Body Mass Index 36.53 07/15/2024 2:42 PM EDT Plan of Treatment Health Maintenance Due [...] 05/16/2023, 05/16/19 24 SDOH Screening 09/01/2024 09/02/2023 Influenza Vaccine (#1) 2024 , 01/07/2023, 12/18/2021, Additional history exists Diabetes: Hemoglobin A1C 01/15/2025 025, 09/12/2023, 05/16/2023, Additional history exists Lipid Panel 05/21/2025 05/21/2024, 08/02/2020 Tobacco Screening 07/15/2025 07/15/2024 Eye Exam 03/19/2026 03/19/2024, 03/10, 03/19/2024, Additional history exists DTaP/Tdap/Td Vaccines (3 - Td or Tdap) 08/19/2028 08/19/2018, 10/08/2016, 08/16/2011, Additional history exists Hepatitis B Vaccines Completed 08/14/2022, 05/29/19 Zoster Vaccines Completed 08/14/2022, 05/28/2022 COVID-19 Vaccine Completed 01/01/2024, 12/2022, 12/18/2021, Additional history exists HIB Vaccines Aged [...] without long-term current use of insulin (CMS/HCC) POCT GLUCOSE Routine 07/15/2024 2:43 PM EDT [...] 11:06 AM EDT Pain of upper abdomen LIPID PANEL WITH REFLEX TO DIRECT LDL [...] Date 11,727 Blood 07/15/2024 3:27 PM EDT Hanna Kimball MD POINT OF CARE TEST EN TER/EDIT ORDERABLES Final Result * POCT Glucose (07/15/2024 2:43 PM EDT) Glucose Blood, POC 130 60 - 200 mg/dL QC Media Lot # [id number] Lot# Expiration Date [id number] Blood Capillary blood specimen / Unknown 07/15/2024 2:43 PM EDT Hanna Kimball MD POINT OF CARE TEST EN TER/EDIT ORDERABLES Final Result * CT Abdomen Pelvis w/ Contrast (07/07/2024 11:13 AM EDT) Anatomical Region Laterality Modality Body, Pelvis, Abdomen Computed T omography 07/07/2024 11:1 3 AM EDT Narrative 07/07/2024 5:51 PM EDT [address] [address] [address] Scan Report Signed Patient: Brannon Leavitt MR#: [id number] : 1965 Acct:[id number] Age/Sex: 59 / M ADM Date: 07/07/24 Loc: HO.CT Attending Dr: Kendra Joya MD Ordering Physician: Kendra Joya MD Date of Service: 07/07/24 Procedure(s): CT abdomen pelvis w IV con Accession Number(s): [id number] cc: Hanna Wheat MD; Kendra Joya MD Report Number: [id number]: Total DLP = 598.00 mGy-cm EXAMINATION: CT [...] Sam Ibrahim MD 07/07/2024 05:48 PM EDT RP Dictated By: Sam Ibrahim MD Signed By: <Electronically signed by Sam Ibrahim MD in OV> 07/07/24 1748 DD/ 1113 TD/TT: 07/07/24 1136 Chief Maintenance Supervisor: Procedure Note Donotuseinterpreter, Image - 07/07/[address] [place] [address] [address] Scan Report Signed Patient: Jimmy Leavitt#: [id number] : 1965Acct:[id number] Age/Sex: 59 / MADM Date: 07/07/24 Loc: .CT Attending Dr: Kendra Joya MD Ordering Physician: Kendra Joya MD Date of Service: 07/07/24 Procedure(s): CT abdomen pelvis w IV con Accession Number(s): [id number] cc: Hanna Wheat MD; Kendra Joya MD Report Number: [id number]: Total DLP = 598.00 mGy-cm EXAMINATION: CT [...] 07/07/24 1748 DD/ 1113 TD/TT: 07/07/24 1136 Chief Maintenance Supervisor: Kendra Joya MD [facility] PROCED[facility] Edited Result - Final * Creatinine, Serum (07/05/2024 11:33 AM EDT) Creatinine, Serum 0.98 0.5 - 1.4 mg/dL [facility] Estimated Glomerular Filt Rate >60 [facility] Comment:Chronic Kidney Disea se: Estimated GFR < 60 mL/min/[id number] Kidney Disease: Estimated GFR < 15 mL/min/1.73m2 Blood Venous blood specimen / Unknown 07/05/2024 11:33 AM EDT 07/05/2024 1:07 PM EDT Kendra Joya MD LAB BLOOD ORDERABLES Fin al Result Performing Organization Address [facility] Co de Phone Number [facility] [address] [place] [phone] * (ABNORMAL) BUN (Blood Urea Nitrogen) (07/05/2024 11:33 AM EDT) Urea Nitrogen (BUN) 23(H) 9 - 16 mg/dL [facility] Blood Venous blood specimen / Unknown 07/05/2024 11:33 AM EDT 07/05/2024 1:07 PM EDT us Kendra Joya MD LAB BLOOD ORDERABLES Fin al Result Performing Organization Address [facility] Co de Phone Number [facility] [address] [place] [phone] * (ABNORMAL) Hepatic Function Panel (07/05/2024 11:33 AM EDT) Bilirubin, Total 0.5 0.0 - 1.0 mg/dL [facility] Bilirubin, Direct 0.1 0.0 - 0.5 mg/dL [facility] Aspartate Amino Transferase 35 5 - 37 U/L [facility] Alanine Aminotransferase 47(H) 0 - 40 U/L [facility] Total Protein 8.1(H) 6.5 - 8.0 g/dL [facility] Albumin Level 4.5 3.5 - 5.0 g/dL [facility] Alkaline Phosphatase 100 39 - 117 U/L [facility] Blood Venous blood specimen / Unknown 07/05/2024 11:33 AM EDT 07/05/2024 1:07 PM EDT Kendra Joya MD LAB BLOOD ORDERABLES Fin al Result [facility] [address] [place] [phone] * POCT urinalysis dipstick manually resulted [...] ENTER /EDIT ORDERABLES Final Result * (ABNORMAL) Lipid Panel with Reflex to Direct LDL (05/21/2024 9:57 AM EDT) Triglycerides 346(H) <150 mg/dL [facility] Comment:Desirable Triglyceri de: less than 150 mg/dLBorderline High Triglyceride 150-199 mg/dLHigh Triglyceride: 200-499 mg/dLVery High Triglyceride: greater than or equal to 5OO mg/dL Cholesterol 241(H) <200 mg/dL [facility] Comment:Desirable Cholestero l: less than 200 mg/dLBorderline High Cholesterol: 200-239 mg/dLHigh Cholesterol: greater than 239 mg/dL LDL Cholesterol Calculated 139(H) <100 mg/dL [facility] Comment:Desirable LDL: less than 100 mg/dLNear Optimal/Above Optimal LDL: 110- 129 mg/dLBorderline High LDL: 130-159 mg/dLHigh LDL: 160-189 mg/dLVery High LDL: greater than or equal to 190 mg/dL HDL Cholesterol 33(L) >40 mg/dL [facility] Comment:Desirable HDL: great er than 40 mg/dL Note: This HDL assay may give artificially low results in patients with liver disease. Blood 05/21/2024 9:57 AM EDT 05/21/2024 9:57 AM EDT Hanna Kimball MD LAB BLOOD ORDERABLES Final Result Performing Organization Address [facility] [[email or web address]] de Phone Number [facility] [address] [place] [address] [phone] * ALBUMIN, RANDOM URINE W/CREATININE (02/05/2021 2:07 PM EST) Microalbumin Urine 3.7 See Note: mg/dL [facility] Comment: Reference Range: Reference Range Not established Microalb/Creat Ratio 27 <30 mcg/mg creat [facility] Comment: The ADA defines abnormalities in albumin excretion as follows: Albuminuria Category Result (mcg/mg creatinine) Normal to Mildly increased <30 Moderately increased 30-299 Severely increased > OR = 300 The ADA recommends that at least two of three specimens collected within a 3-6 month period be abnormal before considering a patient to be within a diagnostic category. Creatinine, Urine 137 20 - 320 mg/dL [facility] 02/05/2021 2:07 PM EST us Hanna Kimball MD LAB URINE ORDERABLES Final Result Performing Organization Address [facility] Co de Phone Number [facility] [address] * Hm Colonoscopy (05/28/2020) Historical [facility] Final Result from Last 3 Months or Most Recently Relevant to Health Maintenance Insurance Care Teams Senior Sales Operations Manager Relationship Specialty Start Date End Date Hanna Wheat MD [address] [place] [phone] PCP - General Family Medicine 10/30/18 Concetta Garcia Exchange ArchitectBonbon Dipper 11/28/22 Concetta Garcia Exchange ArchitectBonbon Dipper 05/13/24
== END ==
LOC: HO.CARD 13:54
PROVIDERS: PCP Internal Medicine; Visit Provider Nurse Practitioner Family
DX: I25.10 Atherosclerotic heart disease of native coronary artery without angina pectoris (principal)
CPT/HCPCS: 93306; Q9957

== ENCOUNTER → 2024-09-22 13:57 | Outpatient (BNV) | payer MEDICAID, SELFPAY | PROVIDERS: PCP Internal Medicine; Visit Provider Internal Medicine | DX: I42.2 Other hypertrophic cardiomyopathy (principal); I25.10 Atherosclerotic heart disease of native coronary artery without angina pectoris; I35.8 Other nonrheumatic aortic valve disorders | CPT/HCPCS: 93306 ==

== ENCOUNTER 2024-11-26 07:48 | Outpatient (REF) | payer MEDICAID, SELFPAY ==
--- OUTSIDE RECORDS SUMMARY | 2024-11-26 07:51 | XMS_ITS | Encounter Summary ---
Author Organization [email or web address] Address [address] [place] [address] Care Team Providers Care Web Site Administrator Name Role Phone Hanna Wheat MD Primary Care Provide r Alexys Parks RN Unavailable [phone] Reason for Visit * Reason Comments Med Refill Encounter Details Date Type Department Care Team ([facility] st Contact Info) Description 12/09/2023 Refill [facility] [address] [place] [address] Hanna Wheat MD [address] [place], [place] [phone] Primary osteoarthritis of both knees Social History [...] documented as of this encounter Care Teams Web Site Administrator Relationship Specialty Start Date End Date Hanna Wheat MD [address] [place] [address] PCP - General Family Medicine 10/30/18 Alexys Parks RN [address] [place] [address] Registered Nurse Family Medicine 09/09/24 09/09/24 Concetta Garcia Machine Coil AssemblerExecutive Officer Special Warfare Team 11/28/22 Concetta Garcia Machine Coil AssemblerExecutive Officer Special Warfare Team 05/13/24 documented as of this encounter
--- OUTSIDE RECORDS SUMMARY | 2024-11-26 07:51 | XMS_ITS | Encounter Summary ---
Author Organization [employer] Address [address] [place] [address] [address] [place] [address] Care Team Providers Care Recorder Of Deeds Name Role Phone Hanna Wheat MD Primary Care Provide r Alexys Parks RN Unavailable [phone] Encounter Details Date Type Department Care Team (Late st Contact Info) Description 11/15/2022 Orders Only [facility] [address] [place] [address] Provider, MD Jacinto Social History Tobacco Use [...] on filedocumented in this encounter Care Teams Recorder Of Deeds Relationship Specialty Start Date End Date Hanna Wheat MD [address] [place], [place] [phone] PCP - General Family Medicine 8/23/19 Alexys Parks, RN [address] [place] [phone] Registered Nurse Family Medicine 09/09/24 09/09/24 Concetta Garcia Hris AdministratorRadio Station Audio Engineer 11/28/22 Concetta Garcia Hris AdministratorRadio Station Audio Engineer 05/13/24 documented as of this encounter
--- OUTSIDE RECORDS SUMMARY | 2024-11-26 07:51 | XMS_ITS | Clinical Summary ---
Author Organization [employer] Address 75 [facility] 7t [place] [address] Care Team Providers Care Drilling Supervisor Name Role Phone Hanna Wheat MD [...] MORNING AND IN THE EVENING 022 Active Lidoderm 5 % patch APPLY 1-2 PATCHES TOPICALLY TO AFFECTED AREA(S) EVERY DAY NEEDED FOR PAIN. REMOVE AFTER 12 hours. 022 Active nitroglycerin (Nitrostat) 0.[address] 1 TABLET UNDER THE TONGUE NEEDED FOR CHEST PAIN - MAY REPEAT IN 5 MINUTES TWICE. IF NO RELIEF CALL 911 OR GO TO EMERGENCY ROOM. 11/29/2 022 Active Wheat Dextrin (benefiber drink mix) packet MIX 1 PACKET IN 4 OUNCES IN WATER OR JUICE AND DRINK DAILY DIRECTED 023 Active colchicine 0.6 MG tabletIndications :Low back pain, unspecified back pain laterality, unspecified chronicity, unspecified whether sciatica present take one daily 30 tablet 024 Active Blood Glucose Monitoring Suppl (FreeStyle Lite) deviceIndications :Type 2 diabetes mellitus without complication, without long-term current use of insulin ([facility]) Inject 1 each under the skin 2 times daily. Test 1 time by intradermal route 2 times everyday. 1 each Active azithromycin (Zithromax) 250 MG tablet Take 2 tablets PO on day one then take 1 tablet PO daily for the next 4 days 6 tablet 024 Active cetirizine (ZyrTEC) 10 MG tablet Take 1 tablet (10 mg) by mouth Once per day. 90 tablet 3 024 Active diclofenac sodium 3 % gelIndications:Pr imary osteoarthritis of both knees APPLY 2 GRAMS TOPICALLY TWICE DAILY 100 g 1 024 Active esomeprazole (NexIUM) 40 MG [...] at bedtime. 024 Active FREESTYLE LITE test stripIndications: Type 2 diabetes mellitus with hyperglycemia, without long-term current use of insulin ([facility]) USE DIRECTED TO TEST BLOOD SUGAR TWICE DAILY 50 strip 11 025 Active cholecalciferol (D3 Super Strength) 50 MCG (1999 UT) capsuleIndication s:Low back pain, unspecified back pain laterality, unspecified chronicity, unspecified whether sciatica present TAKE 1 CAPSULE BY MOUTH EVERY MORNING 90 capsule 1 025 Active baclofen (Lioresal) 20 MG tabletIndications [...] MOUTH EVERYDAY AT NOON 90 tablet 1 025 Active Aspirin Low Dose 81 MG EC tablet TAKE 1 TABLET BY MOUTH EVERY MORNING 90 tablet 025 Active atorvastatin (Lipitor) 80 MG tabletIndications :Mixed hyperlipidemia TAKE 1 TABLET BY MOUTH AT BEDTIME 90 tablet 1 025 Active fenofibrate (Triglide) 160 MG tabletIndications :Dyslipidemia TAKE 1 TABLET BY MOUTH EVERY EVENING 90 tablet 025 Active glipiZIDE XL (Glucotrol XL) 10 MG 24 hr tabletIndications :Type 2 diabetes mellitus without complication, unspecified whether correction insulin use (CMS/HCC) TAKE 1 TABLET BY MOUTH TWICE DAILY IN THE MORNING AND IN THE EVENING WITH MEALS 180 tablet 025 Active losartan (Cozaar) 100 MG tabletIndications :Primary hypertension,Type 2 diabetes mellitus with hyperglycemia, without long-term current use of insulin (CMS/HCC) TAKE 1 TABLET BY MOUTH EVERY MORNING 90 tablet 1 025 Active metFORMIN (Glucophage) 500 MG tabletIndications :Type 2 diabetes mellitus without complication, unspecified whether bed bug exterminator insulin use (CMS/HCC) TAKE 1 TABLET BY MOUTH TWICE DAILY IN THE MORNING AND IN THE EVENING 180 tablet 025 Active metoprolol tartrate (Lopressor) 50 MG tabletIndications :Atherosclerosis of coronary artery of [place] heart with stable angina pectoris, unspecified vessel or lesion type (CMS/HCC) TAKE 1 AND 1/2 TABLETS BY MOUTH TWICE DAILY IN THE MORNING AND IN THE EVENING 270 tablet 025 Active niacin (Niaspan) 500 MG ER tabletIndications :Mixed hyperlipidemia TAKE 1 TABLET BY MOUTH AT BEDTIME 90 tablet 025 Active tamsulosin (Flomax) 0.4 MG 24 hr capsule TAKE 1 CAPSULE BY MOUTH EVERY MORNING 90 capsule 025 Active Trulicity 3 MG/0.5ML solution auto-injectorIndi cations:Type 2 diabetes mellitus with other specified complication (CMS/HCC) INJECT ONE PEN (= 3MG) SUBCUTANEOUSLY ONCE A WEEK DIRECTED 2 mL 3 025 Active TRUEplus Lancets 33G miscIndications:T ype 2 diabetes mellitus with hyperglycemia, without long-term current use of insulin ([facility]) USE TO TEST BLOOD SUGAR TWICE DAILY 100 each 5 Active Jardiance 10 MGIndications:Typ e 2 diabetes mellitus with hyperglycemia, without long-term current use of insulin ([facility]) TAKE 1 TABLET BY MOUTH EVERY MORNING 30 tablet 3 Active acetaminophen (Tylenol 8 Hour) 650 MG ER tablet TAKE 2 TABLETS BY MOUTH EVERY 8 HOURS NEEDED FOR MILD PAIN 40 tablet 1 025 Active acetaminophen (Tylenol 8 [...] Cath Jan 2014, s/p multiple stent at [facility], Dr Luo, Several stress tests, echos [...] Encounters Date Type Department Care Team Description 11/15/2024 Refill [facility] [address] [place] [phone] Hanna Wheat MD 10/24/2024 Refill [facility] [address] [place] [address] Hanna Wheat MD Type 2 diabetes mellitus with hyperglycemia, without long-term current use of insulin ([facility]) 10/19/2024 Refill [facility] [address] [place] [address] Hanna Wheat MD Type 2 diabetes mellitus with hyperglycemia, without long-term current use of insulin (CMS/[facility]) 09/24/2024 Refill [facility] [address] [place], [place] [phone] Hanna Wheat MD Type 2 diabetes mellitus with other specified complication ([facility]) 09/13/2024 Refill [facility] [address] [place] [address] Hanna Wheat MD 09/09/2024 11:30 AM EDT Telemedicine [facility] [address] [place] [address] [phone] Hanna Wheat MD Chest pain, unspecified type; Chronic bilateral low back pain without sciatica 09/09/2024 Travel 09/09/2024 Patient Outreach [facility] [address] [place] [address] Hanna Wheat MD Care Coordination ([facility]- ED status check) 09/09/[address] [facility] [address] [place] [address] Hanna Wheat MD 09/08/2024 10:15 AM EDT Office Visit [facility] [address] [place] [address] Presbyopia of both eyes (Primary Dx) 09/08/2024 Telephone [facility] [address] [place] [address] Hanna Wheat MD Chart Prep 09/02/2024 Patient Outreach [facility] [address] [place], [place] [phone] Hanna Wheat MD Pre-visit Planning (SDOH will need to be completed in office. ) 08/29/2024 Refill [facility] [address] [place] [address] Hanna Wheat MD Primary hypertension; Mixed hyperlipidemia; Dyslipidemia; Type 2 diabetes mellitus without complication, unspecified whether correction insulin use ([facility]); Type 2 diabetes mellitus with hyperglycemia, without long-term current use of insulin ([facility]); Atherosclerosis of coronary artery of [place] heart with stable angina pectoris, unspecified vessel or lesion type ([facility]) from Last 3 Months Immunizations Immunization Administration [...] Bivalent 12/18/2021 Pfizer Covid-19 Vaccine 12+ pina-sucrose (Birtt Cap) 06/21/2021 Pneumococcal Conjugate PCV 13 10/08/2016 [...] without long-term current use of insulin (CMS/HCC) LIPID PANEL WITH REFLEX TO DIRECT LDL [...] Lot # [id number] Lot# Expiration Date Blood 07/15/2024 3:27 PM EDT Hanna Kimball MD POINT OF CARE TEST EN TER/EDIT ORDERABLES Final Result * (ABNORMAL) Lipid Panel with Reflex to Direct LDL (05/21/2024 9:57 AM EDT) Triglycerides 346(H) <150 mg/dL [facility] Comment:Desirable Triglyceri de: less than 150 mg/dLBorderline High Triglyceride 150-199 mg/dLHigh Triglyceride: 200-499 mg/dLVery High Triglyceride: greater than or equal to 5OO mg/dL Cholesterol 241(H) <200 mg/dL [facility] Comment:Desirable Cholestero l: less than 200 mg/dLBorderline High Cholesterol: 200-239 mg/dLHigh Cholesterol: greater than 239 mg/dL LDL Cholesterol Calculated 139(H) <100 mg/dL [facility] Comment:Desirable LDL: less than 100 mg/dLNear Optimal/Above Optimal LDL: 110- 129 mg/dLBorderline High LDL: 130-159 mg/dLHigh LDL: 160-189 mg/dLVery High LDL: greater than or equal to 190 mg/dL HDL Cholesterol 33(L) >40 mg/dL [facility] Comment:Desirable HDL: great er than 40 mg/dL Note: This HDL assay may give artificially low results in patients with liver disease. Blood 05/21/2024 9:57 AM EDT 05/21/2024 9:57 AM EDT Hanna Kimball MD LAB BLOOD ORDERABLES Final Result [facility] [address] [place] [phone] * ALBUMIN, RANDOM URINE W/CREATININE (02/05/2021 [...] Kimball MD LAB URINE ORDERABLES Final Result [facility] [address] [place] [address], * Hm Colonoscopy (05/28/2020) Historical Provider HEALTH MAINTENANCE Final Result from Last 3 Months or Most Recently Relevant to Health Maintenance [facility] Care Teams Drilling Supervisor Relationship Specialty Start Date End Date Hanna Wheat MD [address] [place] [phone] PCP - General Family Medicine 10/30/18 Concetta Garcia Physician ScribeCoater Smoking Pipe 11/28/22 Concetta Garcia Physician ScribeCoater Smoking Pipe 05/13/24
--- OUTSIDE RECORDS SUMMARY | 2024-11-26 07:51 | XMS_ITS | Clinical Summary ---
Author Organization [facility] Address [address] [place] [address] [place] [phone] Phone Care Team Providers Care Tub Mender Name Role Phone Unavailable Primary Care Provider [...] diabetic neurological complication 10/29/2016 11/21/2022 Overview (11/21/2022): Basmi CTS Basim CTS History of cerebrovascular a [...] Quadrivalent, With Preservative 11/29 Influenza, Unspecified 11/27/2015,12/20/2013, [employer] SARS-COV-2 05/31/2020 Pfizer SARS-COV-2 12/18/2021,06/21/2021 Pneumococcal Conjugate [...]
--- OUTSIDE RECORDS SUMMARY | 2024-11-26 07:51 | XMS_ITS | Encounter Summary ---
Author Organization [employer] Address [address] [place] [address] [address] [place] [address] Care Team Providers Care Foreign Broadcast Specialist Name Role Phone Hanna Wheat MD Primary Care Provide r Alexys Parks RN Unavailable [phone] Reason for Visit * Reason Comments Med Refill Encounter Details Date Type Department Care Team ([facility] st Contact Info) Description 11/06/2022 Refill [facility] [address] [place] [address] Shukri Carney MD [address] [place], [place] [phone] Social History Tobacco Use Types Packs/Day Years [...] on filedocumented in this encounter Care Teams Foreign Broadcast Specialist Relationship Specialty Start Date End Date Hanna Wheat MD [address] [place] [address] PCP - General Family Medicine 10/30/18 Alexys Parks, RN [address] [place] [phone] Registered Nurse Family Medicine 09/09/24 09/09/24 Concetta Garcia Supervisor DryingGlass Ribbon Machine Operator 11/28/22 Concetta Garcia Supervisor DryingGlass Ribbon Machine Operator 05/13/24 documented as of this encounter
--- OUTSIDE RECORDS SUMMARY | 2024-11-26 07:51 | XMS_ITS | Encounter Summary ---
Author Organization [employer] Address [address] [facility] [address] [place] [address] Care Team Providers Care Axle And Frame Mechanic Name Role Phone Hanna Wheat MD Primary Care Provide r Alexys Parks RN Unavailable [phone] Encounter Details Date Type Department Care Team ([facility] st Contact Info) Description 07/07/2022 Orders Only [facility] [address] [place] [address] Kendra Joya MD [address] [place] [address] Social History Tobacco Use Types Packs/Day Years [...] on filedocumented in this encounter Care Teams Axle And Frame Mechanic Relationship Specialty Start Date End Date Hanna Wheat MD [address] [place] [address] PCP - General Family Medicine 10/30/18 Alexys Parks, BUFFY [address] [place] [address] Registered Nurse Family Medicine 09/09/24 09/09/24 Concetta Garcia Associate Artistic DirectorRoom Service Associate 11/28/22 Concetta Garcia Associate Artistic DirectorRoom Service Associate 05/13/24 documented as of this encounter
--- OUTSIDE RECORDS SUMMARY | 2024-11-26 07:51 | XMS_ITS | Clinical Summary ---
Author Organization [facility] Address [address] [place] [address] Care Team Providers Care Defensive Driving Instructor Name Role Phone Hanna Wheat MD Primary Care Provide r Surgical History Surgery Date Site/Laterality Comments CARDIAC CATHETERIZATION PROCEDURE: HISTORICAL CARDIAC CATH; COMMENT: Cath Jan 2014 s/p mult stents at [facility] APPENDECTOMY PROCEDURE: HISTORICAL APPENDECTOMY HERNIA REPAIR PROCEDURE: HISTORICAL HERNIA REPAIR/UMB OTHER SURGICAL HISTORY PROCEDURE: ---- OTHER ----; COMMENT: sinus surgery COLONOSCOPY 2014 PROCEDURE: HISTORICAL COLONOSCOPY; COMMENT: repeat in 5 yrs, per patient, at [facility] Medical History Medical History Date Comments Atrial fibrillation (CMS/HCC V24, CMS/HCC V28) 11/27/2015 DX:Atrial fibrillation ([facility]) ; COMMENT: During hospital admission at [facility] Nov 2015, reverted to sinus wiith meds, f/u Cardio at [facility], will have 30day loop recorder, off anticoagulation per cardiology CAD (coronary artery disease) 10/27/2015 DX :CAD (coronary artery disease); COMMENT: Cath Jan 2014, s/p multiple stent at [facility], Dr Luo, Several stress tests, echos Chronic [...] Panel) 10/07/2023 Colorectal Cancer Screening: Colonoscopy 10/07/2023 Diabetes: Annual Urine Albumin-Creatinine Ratio (uACR) 10/07/2023 Diabetes: Blood Sugar Contro l Test (HGBA1C) 10/07/2023 HIV Screening 10/07/2023 Hepatitis C Screening 10/07/2023 Hypertension/CHF/CAD Annual BMP Blood Test 10/07/2023 Social Influencers of Health Screening 10/07/2023 Hepatitis B Vaccines (1 of 3 - Risk 3-dose series) 2024 RSV Immunization Adult Patients (1 - Risk 60-74 years 1-dose series) 2024 Depression Screening 03/10/2024 COVID-19 Vaccine ( - 2023-2 5 season) 2024 Influenza Vaccine (#1) 2024 9, 11/27/2015 [...] age to complete this topic Care Teams Defensive Driving Instructor Relationship Specialty Start Date End Date Hanna Wheat MD [address] [place] [phone] PCP - General 03/20/23
--- OUTSIDE RECORDS SUMMARY | 2024-11-26 07:51 | XMS_ITS | Encounter Summary ---
Author Organization [employer] Address [address] [facility] [address] [place] [address] Care Team Providers Care Hydraulic Elevator Constructor Name Role Phone Hanna Wheat MD Primary Care Provide r Alexys Parks RN Unavailable [phone] Reason for Visit * Reason Comments Med Refill Encounter Details Date Type Department Care Team ([facility] st Contact Info) Description 11/07/2022 Refill [facility] [address] [place] [address] Shukri Carney MD [address] [place] [address] Seasonal allergies; Low back pain, unspecified back [...] present documented in this encounter Care Teams Hydraulic Elevator Constructor Relationship Specialty Start Date End Date Hanna Wheat MD [address] [place] [address] PCP - General Family Medicine 10/30/18 Alexys Parks, BUFFY [address] [place] [address] Registered Nurse Family Medicine 09/09/24 09/09/24 Concetta Garcia Health InspectorProgram Evaluator 11/28/22 Concetta Garcia Health InspectorProgram Evaluator 05/13/24 documented as of this encounter
--- OUTSIDE RECORDS SUMMARY | 2024-11-26 07:51 | XMS_ITS | Encounter Summary ---
Author Organization [employer] Address [address] [facility] 7t [place] [address] Care Team Providers Care Car Wash Attendant Name Role Phone Hanna Wheat MD Primary Care Provide r Alexys Parks RN Unavailable [phone] Encounter Details Date Type Department Care [...] on filedocumented in this encounter Care Teams Car Wash Attendant Relationship Specialty Start Date End Date Hanna Wheat MD [address] [place] [address] PCP - General Family Medicine 10/30/18 Alexys Parks, RN [address] [place] [address] Registered Nurse Family Medicine 09/09/24 09/09/24 Concetta Garcia Inductor TesterApplication Tester 11/28/22 Concetta Garcia Inductor TesterApplication Tester 05/13/24 documented as of this encounter
--- OUTSIDE RECORDS SUMMARY | 2024-11-26 07:51 | XMS_ITS | Encounter Summary ---
Author Organization [employer] Address [address] [facility] [address]t [place] [address] Care Team Providers Care Blocker And Polisher Name Role Phone Hanna Wheat MD Primary Care Provide r Alexys Parks RN Unavailable [phone] Reason for Visit * Reason Comments Med Refill Encounter Details Date Type Department Care Team ([facility] st Contact Info) Description 07/16/2024 Refill [facility] [address] [place] [address] Kendra Joya MD [address] [place] [address] Social History Tobacco Use Types Packs/Day Years [...] documented as of this encounter Care Teams Blocker And Polisher Relationship Specialty Start Date End Date Hanna Wheat MD [address] [place] [address] PCP - General Family Medicine 10/30/18 Alexys Parks, BUFFY [address] [place] [address] Registered Nurse Family Medicine 09/09/24 09/09/24 Concetta Garcia Spring ClipperPortable Feed Mill Operator 11/28/22 Concetta Garcia Spring ClipperPortable Feed Mill Operator 05/13/24 documented as of this encounter
--- OUTSIDE RECORDS SUMMARY | 2024-11-26 07:51 | XMS_ITS | Encounter Summary ---
Author Organization [employer] Address [address] [facility] [address] [place] [address] Care Team Providers Care Dogman/Woman Name Role Phone Hanna Wheat MD Primary Care Provide r Alexys Parks RN Unavailable [phone] Reason for Visit * Reason Comments Med Refill Encounter Details Date Type Department Care Team (Late st Contact Info) Description 08/24/2022 Refill [facility] [address] [place] [address] Kendra Joya MD [address] [place] [address] Atherosclerosis of coronary artery of [place] heart [...] angina pectoris, unspecified vessel or lesion type (CMS/[facility]) documented in this encounter Care Teams Dogman/Woman Relationship Specialty Start Date End Date Hanna Wheat MD [address] [place] [address] PCP - General Family Medicine 10/30/18 Alexys Parks RN [address] [place] [address] Registered Nurse Family Medicine 09/09/24 09/09/24 Concetta Garcia Nurse EpidemiologistHeavy Equipment Operator/Paver 11/28/22 Concetta Garcia Nurse EpidemiologistHeavy Equipment Operator/Paver 05/13/24 documented as of this encounter
--- OUTSIDE RECORDS SUMMARY | 2024-11-26 07:51 | XMS_ITS | Encounter Summary ---
Author Organization [employer] Address [address] [facility] [address] [place] [address] Care Team Providers Care Bow Stapler Name Role Phone Hanna Wheat MD Primary Care Provide r Alexys Parks RN Unavailable [phone] Reason for Visit * Reason Comments Med Refill Encounter Details Date Type Department Care Team ([facility] st Contact Info) Description 08/24/2022 Refill [facility] [address] [place], [place] [phone] Ellie Wheeler MD [address] [place], [place] [phone] Type 2 diabetes mellitus without complication, unspecified whether shelter insulin use ([facility]); Dyslipidemia Social History Tobacco Use [...] 2 diabetes mellitus without complication, unspecified whether oil heaterman insulin use ([facility]) Dyslipidemia Other and unspecified hyperlipidemia documented in this encounter Care Teams Bow Stapler Relationship Specialty Start Date End Date Hanna Wheat MD [address] [place] [address] PCP - General Family Medicine 10/30/18 Alexys Parks RN [address] [place] [phone] Registered Nurse Family Medicine 09/09/24 09/09/24 Concetta Garcia Environmental Science Program DirectorHand Ii Blocker 11/28/22 Concetta Garcia Environmental Science Program DirectorHand Ii Blocker 05/13/24 documented as of this encounter
[2024-11-26 07:58] LABS: MANUAL DIFF FLAG NO
[2024-11-26 08:15] LABS: Hematocrit 44.4 % (42.0-52.0); Hemoglobin 15.1 g/dl (14.0-18.0); Imm Gran Abs Auto 0.02 X10*3/uL (0.00-0.03); Imm Gran Pct Auto 0.2 % (0.0-0.4); Lymphocytes Absolute Auto 3.2 X10*3/uL (1.2-4.9); Mean Corpuscular HGB Conc 34.0 g/dl (31.0-36.0); Mean Corpuscular Hemoglobin 29.0 pg (27.0-33.0); Mean Corpuscular Volume 85.4 fL (80.0-98.0); NRBC Abs Auto 0.000 X10*3/uL (0.0-0.012); NRBC Pct Auto 0.0 /100WBC (0.0-0.2); Platelet Count 379 X10*3/uL (160-400); Red Blood Count 5.20 X10*6/uL (4.60-5.80); White Blood Count 8.2 X10*3/uL (4.8-10.8)
[2024-11-26 08:41] LABS: Alanine Aminotransferase 21 U/L (0-40); Albumin Level 4.5 g/dL (3.5-5.0); Alkaline Phosphatase 94 U/L (39-117); Anion Gap 11 (12-20); Aspartate Amino Transferase 22 U/L (5-37); Blood Urea Nitrogen 30 mg/dL (9-16); Calcium 9.7 mg/dL (8.4-10.2); Carbon Dioxide 27 mmol/L (22-29); Chloride 104 mmol/L (96-108); Estimated Glomerular Filt Rate 56; Potassium 4.1 mmol/L (3.3-5.1); Sodium 138 mmol/L (135-145); Total Protein 7.7 g/dL (6.5-8.0); Uric Acid 10.4 mg/dL (3.4-7.0)
== END 2024-11-26 07:49 | disposition home or self-care (01) ==
LOC: HO.LAB 07:48
PROVIDERS: PCP Internal Medicine; Visit Provider Student in an Organized Health Care Education/Training Program
DX: M17.0 Bilateral primary osteoarthritis of knee (principal)
CPT/HCPCS: 36415; 80053; 84550; 85025; 85652; 86140

== ENCOUNTER 2024-12-01 09:30 | Outpatient (AMB) | payer MEDICAID, SELFPAY ==
--- NOTE | 2024-12-01 09:50 | A.OFFVIS_ITS ---
Vital Signs 12/01/24 09:55 Height 5 ft 9 in Weight 237 lb 14.06 oz BMI 35.1 BP 142/80 H Blood Pressure Location Lt brachial Position Sitting Pulse 75 Pulse Source Pulse Oximeter Pulse Oximetry (%) 98 Oxygen Delivery Method Room Air Intake Visit Reasons: follow up Intake Note: Patient presents for OA follow up. Turbine Mechanic Required: Yes Turbine Mechanic Language: Community Engagement Manager Services: Turbine Mechanic Present Turbine Mechanic Name: [id number] Information Interpreted: non-clinical & clinical Allergies Iodinated Contrast Media (IV CONTRAST) Allergy (Intermediate, Verified 12/01/24 09:55) Difficulty Breathing Penicillins Allergy (Mild, Verified 12/01/24 09:55) RASH Sulfa (Sulfonamide Antibiotics) Allergy (Mild, Verified 12/01/24 09:55) RASH codeine Adverse Reaction (Mild, Verified 12/01/24 09:55) STOMACH UPSET Docusate Calcium Allergy (Mild, Uncoded 07/28/24 12:05) rash Medication List - Last Reconciled 12/01/24 by Sangita Adhikari MD acetaminophen ER 650 mg PO Q8H PRN amlodipine 10 mg PO DAILY@1200 apixaban (Eliquis) 5 mg PO BID aspirin 81 mg PO DAILY atorvastatin 80 mg PO BEDTIME bisacodyl (Dulcolax (bisacodyl)) 10 mg (2 x 5 mg) PO BEDTIME chlorthalidone 25 mg PO DAILY cholecalciferol (vitamin D3) 50 mcg PO DAILY dulaglutide (Trulicity) 3 mg subcut FR@0900 empagliflozin (Jardiance) 10 mg PO DAILY esomeprazole magnesium (Nexium) 40 mg PO DAILY@0630 fenofibrate 160 mg PO BEDTIME fluticasone furoate 100 mcg/actuation (Arnuity Ellipta) 1 inh inhalation DAILY fluticasone propionate 50 mcg/actuation 2 sprays intranasal DAILY PRN gabapentin 600 mg PO BID glipizide ER 1 tab PO BID isosorbide mononitrate ER 30 mg PO QPM lidocaine 5% 1 patch topical DAILY PRN linaclotide (Linzess) 145 mcg PO DAILY loperamide 2 mg PO Q4H PRN loratadine 10 mg PO DAILY losartan 100 mg PO DAILY metformin 500 mg PO BID metoprolol tartrate 1.5 tabs PO BID mometasone 100 mcg/actuation (Asmanex HFA) 1 inh inhalation DAILY niacin ER 500 mg PO BEDTIME oxycodone 5 mg PO BID PRN polyethylene glycol 3350 (Miralax) 238 grams PO ONCE tamsulosin 0.4 mg PO DAILY HPI Comments Details: Patient is a 59-year-old male with hypertension, diabetes, AFib on Eliquis and benign prostate hypertension who presents for follow up of chronic tophaceous non crystal proven gout Interval History: Patient last seen 06/08/24 with me - Not on any rheum medications - Received durolane injections bilaterally due to failed effect of steroid injections Today - Not on any rheum medications - No efficacy after durolane injections - reports swelling to his right elbow and pain and swelling to his left knee Rheumatologic History: Initial history: Patient states that he has been pain for the past 3-4 years. Pain involving the left shoulder, bilateral knees and the fingers of the hands. Has noted swelling to the knees in the past but no swelling in the hands No prolonged AM stiffness States that 2 years ago he went to the ED with swollen knees and was told he had gout. No arthocentesis was done. Given medication and sent home. 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 No family history of RA Uric acid was normal and so allopurinol and colchicine were stopped Failed steroid injections to bilateral knees Current Rheumatology Medication(s): [facility] Medical History (Updated 12/01/24 @ 10:27 by Sangita Adhikari MD) Gout CAD (coronary artery disease) Carpal tunnel syndrome on both sides Bilateral primary osteoarthritis of knee Hypertension Osteoarthritis TIA (transient ischemic attack) Chest pain Gastroparesis Anal fistula Low back pain Perianal abscess History of panic attacks Hx of myocardial infarction Arthritis GERD (gastroesophageal reflux disease) Scoliosis Asthma Tubular adenoma Migraines Seizures Depression Diabetes Adhesive capsulitis of left shoulder Atrial flutter Cellulitis Surgical History History of incision and drainage (~10/19/21) History of umbilical hernia repair History of esophagogastroduodenoscopy (EGD) H/O colonoscopy History of open heart surgery History of sinus surgery History of appendectomy History of angioplasty Family History Father No problems noted. Mother History of stomach cancer History of liver cancer Brother No problems noted. 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 care connector to a significant other at home: Yes (children) Do you presently have visiting nurse or other home services: No Alcohol intake: current Alcohol intake frequency: holidays/special occasions only Alcohol type: beer Patient Tobacco Use Status: Never used Tobacco Advance Directives Date on File: 05/15/22 service: No Current occupational status: disabled Review of Systems Const Details: Review of Systems Constitutional: Denies fever, chills, weight loss ENT: Denies vision changes, eye pain or eye redness, dental caries, dry mouth GI: Denies nausea, vomiting, diarrhea, abdominal pain, change in BM Pulm: Denies SOB, LOBO, hemoptysis, wheezing Cards: Denies chest pain, palpitations Skin: Denies Raynaud's, rash, nail changes, photosensitivity, WAREHOUSEMAN: Denies headaches, weakness, paresthesias, recurrent falls MSK: as per HPI All other systems reviewed and are unremarkable except noted above Physical Exam Exam Exam: Vital signs reviewed Physical Examination CONSTITUITIONAL Patient alert and cooperative. Well appearing and in no apparent painful distress MSK Hands * Right Hand: Able to make a fist. No swelling or tenderness to palpation of the MCPs, PIPs or DIPs. * Left Hand: Able to make a fist. No swelling or tenderness to palpation of the MCPs, PIPs or DIPs. * Herbedens nodes noted bilaterally Wrists * Right Wrist: Full ROM to flexion and extension. No swelling or TTP * Left Wrist: Full ROM to flexion and extension. No swelling or TTP Elbows * Right Elbow: Full ROM. No swelling or TTP. No TTP of the medial epicondyle. No TTP of the lateral epicondyle. Tophi vs bursa enlargement * Left Elbow: Full ROM. No swelling or TTP. No TTP of the medial epicondyle. No TTP of the lateral epicondyle Shoulders * Right shoulder: Full ROM. No swelling noted. No TTP of the AC joint. No TTP of the subacromial bursa. No TTP of the posterior shoulder * Left shoulder: Full ROM. No swelling noted. No TTP of the AC joint. No TTP of the subacromial bursa. No TTP of the posterior shoulder Knees * Right knee: Full ROM. No swelling noted. No TTP of the knee joint line. No TTP of pes anserine bursa. Prominent tibial tuberosity * Left knee: Full ROM. No swelling noted. TTP of the knee joint line. No TTP of pes anserine bursa. * Crepitations felt bilaterally Ankles * Right ankle: Good ankle dorsiflexion and plantar flexion. No swelling. No TTP of the ankle joint * Left ankle: Good ankle dorsiflexion and plantar flexion. No swelling. No TTP of the ankle joint Feet * Right foot: Negative squeeze test * Left foot: Negative squeeze test Tender points? * No tenderness to palpation of the bilateral trapezius, supraspinatus, anterior costochondral junctions, bilateral suboccipital muscle insertions SKIN No rashes Vital Signs: Last Vital Signs Pulse 75 12/01/24 09:55 BP 142/80 H 12/01/24 09:55 Pulse Ox 98 12/01/24 09:55 Oxygen Delivery Method Room Air 12/01/24 09:55 BMI result Body Mass Index 35.1 Results Reviewed Results Reviewed: Laboratory Tests 11/26/24 07:57 WBC 8.2 RBC 5.20 Hgb 15.1 Hct 44.4 Plt Count 379 ESR 8 Sodium 138 Potassium 4.1 Chloride 104 Carbon Dioxide 27 BUN 30 H Creatinine 1.31 Uric Acid 10.4 H AST 22 ALT 21 C-Reactive Protein 1.08 H Laboratory Tests 01/20/24 09:55 Rheumatoid Factor 44.0 H Cycl Citrul Peptide IgG <16 Assessment & Plan Assessment & Plan (1) Bilateral primary osteoarthritis of knee: Comment: Steroid injections - 01/2024: not effective Durolane injections - 06/2024: not effective Code(s): M17.0 - Bilateral primary osteoarthritis of knee Category: Medical Plan: #Bilateral Knee OA Patient is a 59-year-old male with bilateral knee osteoarthritis here today for follow up. No effect from the Durolane injections done at the last visit. Given he has had no response to steroid or Durolane injections I think at this time the next step will be to refer him to Orthopedics Plan - Refer to orthopedics (2) Gout: Code(s): M10.9 - Gout, unspecified Category: Medical Qualifiers: Gout site: unspecified site Gout etiology: unspecified cause Chronicity: unspecified Plan: #Gout Patient with history of gout previously on allopurinol but this was stopped. Today he has a swelling over his right elbow consistent with a bursa swelling +/- tophi. We will restart allopurinol Plan - Allopurinol 300mg daily - Prednisone 5mg daily - RTC 4 months - Labs before visit: CBC, CMP, ESR, CRP, Uric acid (3) Encounter for monitoring allopurinol therapy: Code(s): Z51.81 - Encounter for therapeutic drug level monitoring; Z79.899 - Other retirement (current) drug therapy Plan: #Long-term Current Use of Allopurinol Risks and benefits of allopurinol discussed with patient Benefits include decreased gout flares, remission of gout and reduction of tophi Risks include allopurinol hypersensitivity syndrome which is a severe cutaneous adverse reaction associated with allopurinol use particularly in patients who are HLA B*5801 positive, increased transaminases, GI upset including diarrhea, nausea and vomiting, and other dermatologic manifestations. Plan I spent 30 minutes reviewing the record and labs, taking a history, examining the patient, discussing the treatment plan, ordering diagnostic work up and documenting in the medical record Orders: Orders C Reactive Protein 4 Months M10.9 - Gout, unspecified Erythrocyte Sedimentation Rate 4 Months M10.9 - Gout, unspecified Complete Blood Count Auto Diff 4 Months M10.9 - Gout, unspecified Comprehensive Met. Panel 4 Months M10.9 - Gout, unspecified Uric Acid 4 Months M10.9 - Gout, unspecified Referrals Orthopedics Referral M17.0 - Bilateral primary osteoarthritis of knee Medications: New allopurinol 300 mg PO DAILY 90 tabs 1RF M10.9 - Gout, unspecified prednisone 5 mg PO DAILY 90 tabs 1RF M10.9 - Gout, unspecified Coding Level of Care Code Est Pt Level 4 (43781) Complex EM visit Add On G2211 Diagnoses Bilateral primary osteoarthritis of knee M17.0 Gout M10.9 Gout site: unspecified site Gout etiology: unspecified cause Chronicity: unspecified Encounter for monitoring allopurinol therapy Z51.81; Z79.899
[2024-12-01 09:55] VITALS: BP 142/80; PULSE 75; O2SAT 98; BMI 35.1
--- OUTSIDE RECORDS SUMMARY | 2024-12-01 11:23 | XMS_ITS | Clinical Summary ---
Author Organization [facility] Address [address] [place] [address] [place] [address] Phone Care Team Providers Care Field Training Manager Name Role Phone Unavailable Primary Care Provider [...] Quadrivalent, With Preservative 11/29 Influenza, Unspecified 11/27/2015,12/20/2013, [place] [employer] SARS-COV-2 05/31/2020 Pfizer SARS-COV-2 12/18/2021,06/21/2021 Pneumococcal Conjugate [...]
--- OUTSIDE RECORDS SUMMARY | 2024-12-01 11:23 | XMS_ITS | Clinical Summary ---
Author Organization [facility] Address [address] [place] [address] Care Team Providers Care Analysis Engineer Name Role Phone Hanna Wheat MD Primary Care Provide r Surgical History Surgery Date Site/Laterality Comments CARDIAC CATHETERIZATION PROCEDURE: HISTORICAL CARDIAC CATH; COMMENT: Cath Jan 2014 s/p mult stents at [facility] APPENDECTOMY PROCEDURE: HISTORICAL APPENDECTOMY HERNIA REPAIR PROCEDURE: HISTORICAL HERNIA REPAIR/UMB OTHER SURGICAL HISTORY PROCEDURE: ---- OTHER ----; COMMENT: sinus surgery COLONOSCOPY 2014 PROCEDURE: HISTORICAL COLONOSCOPY; COMMENT: repeat in 5 yrs, per patient, at [facility] Medical History Medical History Date Comments Atrial fibrillation (CMS/HCC V24, CMS/HCC V28) 11/27/2015 DX:Atrial fibrillation ([facility]) ; COMMENT: During hospital admission at [facility] Nov 2015, reverted to sinus wiith meds, f/u Cardio at [place], will have 30day loop recorder, off anticoagulation per cardiology CAD (coronary artery disease) 10/27/2015 DX :CAD (coronary artery disease); COMMENT: Cath Jan 2014, s/p multiple stent at [facility], Dr Luo, Several stress tests, echos [...] age to complete this topic Care Teams Analysis Engineer Relationship Specialty Start Date End Date Hanna Wheat MD [address] [place] [id number] PCP - General 03/20/23
== END 2024-12-01 10:28 | disposition home or self-care (01) ==
LOC: HO.RHES 09:31
PROVIDERS: PCP Internal Medicine; Visit Provider Student in an Organized Health Care Education/Training Program
DX: M17.0 Bilateral primary osteoarthritis of knee (principal); M10.9 Gout, unspecified; Z51.81 Encounter for therapeutic drug level monitoring; Z79.899 Other long term (current) drug therapy; E79.0 Hyperuricemia without signs of inflammatory arthritis and tophaceous disease
CPT/HCPCS: 99214

== ENCOUNTER → 2024-12-01 09:30 | Outpatient (BNVA) | payer MEDICAID, SELFPAY | PROVIDERS: PCP Internal Medicine; Visit Provider Student in an Organized Health Care Education/Training Program | DX: M17.0 Bilateral primary osteoarthritis of knee (principal); M1A.9XX1 Chronic gout, unspecified, with tophus (tophi); Z51.81 Encounter for therapeutic drug level monitoring; Z79.899 Other long term (current) drug therapy | CPT/HCPCS: 99212 ==

== ENCOUNTER 2025-02-18 07:55 | Outpatient (AMB) | payer MEDICAID, SELFPAY ==
--- NOTE | 2025-02-18 08:38 | MHC.OFFVIS ---
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 Patient reports ongoing pain for about 3 years ago. Patient was referred by Rheumatology. He states that his left knee is worse than the right. Patient states that his pain is worse when he is walking, going up and down the stairs, and bending. He has tried a Durolane injection with Rheumatology on 06/08/24 with a week of relief. Reduction Plant Supervisor Services: Reduction Plant Supervisor Present (Erendira ([id number])) Allergies Iodinated Contrast Media (IV CONTRAST) Allergy (Intermediate, Verified 02/18/25 08:41) Difficulty Breathing Penicillins Allergy (Mild, Verified 02/18/25 08:41) RASH Sulfa (Sulfonamide Antibiotics) Allergy (Mild, Verified 02/18/25 08:41) RASH codeine Adverse Reaction (Mild, Verified 02/18/25 08:41) STOMACH UPSET Docusate Calcium Allergy (Mild, Uncoded 07/28/24 12:05) rash HPI Comments Details: History of Present Illness The patient is a 59-year-old male who presents for evaluation of bilateral knee pain. He has been experiencing very strong, intolerable pain for two and a half to three years, with the left knee being worse than the right. The pain is severe enough to prevent him from sleeping at night. He does not recall any specific injury that initiated the pain. Past treatments include physical therapy, cortisone injections which provided no help, and gel injections approximately 11 months to one year ago that offered only three days to a week of relief. His past medical history is significant for coronary artery disease, atrial flutter, a transient ischemic attack, myocardial infarction, seizures, diabetes, and gout. He is currently taking Eliquis for his heart condition. He had heart surgery 4 years ago and reports he sees Kecia Cartwright NP-C, cardiology, regularly and remains stable since his surgery. The patient is not currently working. Pain Description - Onset: The patient has had knee pain for two and a half to three years. - Location: The pain is in both knees, with the left knee being worse than the right. - Quality: The pain is described as very strong and intolerable. - Interferences: The pain prevents him from sleeping at night. - Alleviating Factors: Gel injections provided minimal relief for three days to one week. - Ineffective Treatments: Cortisone injections and physical therapy did not help the pain. Results - X-rays of the knees revealed bilateral knee osteoarthritis. [facility] Medical History (Updated 02/18/25 @ 10:06 by Clarisa Crews PA-C) Gout CAD (coronary artery disease) Carpal tunnel syndrome on both sides Bilateral primary osteoarthritis of knee Hypertension Osteoarthritis TIA (transient ischemic attack) Chest pain Gastroparesis Anal fistula Low back pain Perianal abscess History of panic attacks Hx of myocardial infarction Arthritis GERD (gastroesophageal reflux disease) Scoliosis Asthma Tubular adenoma Migraines Seizures Depression Diabetes Adhesive capsulitis of left shoulder Atrial flutter Cellulitis Surgical History History of incision and drainage (~10/19/21) History of umbilical hernia repair History of esophagogastroduodenoscopy (EGD) H/O colonoscopy History of open heart surgery History of sinus surgery History of appendectomy History of angioplasty Family History Father No problems noted. Mother History of stomach cancer History of liver cancer Brother No problems noted. 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 coronary care unit nurse to a significant other at home: Yes (children) Do you presently have visiting nurse or other home services: No Alcohol intake: current Alcohol intake frequency: holidays/special occasions only Alcohol type: beer Patient Tobacco Use Status: Never used Tobacco Advance Directives Date on File: 05/15/22 service: No Current occupational status: disabled Review of Systems Narrative Review of Systems - Musculoskeletal: Reports severe, intolerable bilateral knee pain, worse on the left side. - Constitutional: Reports inability to sleep due to pain. Physical Exam Const General: cooperative, healthy appearing and no acute distress Resp Effort & Inspection: normal respiratory effort and able to speak in complete sentences Extrem Other: Left knee: No ecchymosis, erythema, or joint effusion. Mild tenderness to palpation of the medial and lateral joint lines. ROM 0-100 degrees with crepitus. NVI. Right knee: No ecchymosis, erythema, or joint effusion. No tenderness to palpation of the medial or lateral joint lines. Full ROM. NVI. Psych Appearance: grossly normal Mental Status: mental status grossly normal Attitude: cooperative Assessment & Plan Assessment & Plan (1) Osteoarthritis of knees, bilateral: Code(s): M17.0 - Bilateral primary osteoarthritis of knee Category: Medical Plan 1. Bilateral primary osteoarthritis of knee M17.0 The patient is a 59-year-old male with severe, debilitating bilateral knee osteoarthritis confirmed by in-office X-rays. He has failed conservative treatments, including cortisone and gel injections, and his pain significantly impacts his sleep and quality of life. Given his condition and interest in a definitive solution, he is considered a potential surgical candidate for total knee replacement. The case was discussed with Dr. Anthony, who has agreed to meet with the patient for an in-person surgical consultation to discuss left total knee arthroplasty. An appointment will be scheduled with Dr. Anthony within the next four weeks, after the patient returns from a trip to [place]. The patient was informed that pre-operative medical clearances from his business teacher and primary care physician will be required before proceeding with surgery. Patient understands and accepts. Consent Patient was informed and verbally consented to the use of an ambient scribe for clinic note documentation during this visit. X-rays of the bilateral knees which were obtained while in the office today and were reviewed by me, Clarisa Crews PA-C, revealed significant osteoarthritis. Orders: Orders XR knee LT 2V Today M25.569 - Pain in unspecified knee XR knee RT 2V Today M25.569 - Pain in unspecified knee Coding Level of Care Code Add On Problem Visit Only Diagnoses Osteoarthritis of knees, bilateral M17.0
== END 2025-02-18 09:20 | disposition home or self-care (01) ==
LOC: HO.HOS 07:56
PROVIDERS: PCP Internal Medicine; Visit Provider Physician Assistant
DX: M17.0 Bilateral primary osteoarthritis of knee (principal)
CPT/HCPCS: 99213

== ENCOUNTER → 2025-02-18 08:00 | Outpatient (BNV) | payer MEDICAID, SELFPAY | PROVIDERS: Visit Provider Radiology Diagnostic Radiology | DX: M17.0 Bilateral primary osteoarthritis of knee (principal) | CPT/HCPCS: 73560 ==

== ENCOUNTER 2025-02-18 08:42 | Outpatient (REF) | payer MEDICAID, SELFPAY ==
--- NOTE | ~2025-02-18 | XR_ITS ---
EXAMINATION: XR KNEE 1-2 VIEWS RIGHT, XR KNEE 1-2 VIEWS LEFT HISTORY: M25.569 - Pain in unspecified knee COMPARISON: Comparison is made with the prior examination dated 05/21/1994. FINDINGS: Standing AP views of both knees and additional sunrise patellar views of the bilateral knees are submitted. Osseous mineralization is normal. There is moderate narrowing of the medial compartments of both knees. There is mild to moderate narrowing of the patellofemoral compartments. The joint spaces are preserved. The soft tissues are unremarkable. XR/XR knee RT 2V IMPRESSION: Degenerative changes of the bilateral knees as described. Electronically signed by: Sam Ibrahim MD 02/18/2025 08:15 AM [facility]
--- NOTE | ~2025-02-18 | XR_ITS ---
EXAMINATION: XR KNEE 1-2 VIEWS RIGHT, XR KNEE 1-2 VIEWS LEFT HISTORY: M25.569 - Pain in unspecified knee COMPARISON: Comparison is made with the prior examination dated 05/21/1994. FINDINGS: Standing AP views of both knees and additional sunrise patellar views of the bilateral knees are submitted. Osseous mineralization is normal. There is moderate narrowing of the medial compartments of both knees. There is mild to moderate narrowing of the patellofemoral compartments. The joint spaces are preserved. The soft tissues are unremarkable. XR/XR knee LT 2V IMPRESSION: Degenerative changes of the bilateral knees as described. Electronically signed by: Sam Ibrahim MD 02/18/2025 08:15 AM [facility]
== END 2025-02-18 08:43 ==
LOC: HO.HOSX 08:42
PROVIDERS: Visit Provider Physician Assistant
DX: M17.0 Bilateral primary osteoarthritis of knee (principal)
CPT/HCPCS: 73560; 99212

== ENCOUNTER 2025-02-25 09:42 | Outpatient (AMB) | payer MEDICAID, SELFPAY ==
--- NOTE | 2025-02-25 09:57 | MHC.OFFVIS ---
Vital Signs 02/25/25 10:01 Height 5 ft 9 in Weight 240 lb 11.916 oz BMI 35.5 BP 130/82 Blood Pressure Location Lt brachial Position Sitting Pulse 90 Pulse Source Monitor Intake Visit Reasons: r/s 01/20/25 6mos/egd/colo/sandie/clearance Hostel Parent Required: Yes Hostel Parent Name: voyce/lao Accompanied by: Self / Same As Patient Allergies Iodinated Contrast Media (IV CONTRAST) Allergy (Intermediate, Verified 02/18/25 08:41) Difficulty Breathing Penicillins Allergy (Mild, Verified 02/18/25 08:41) RASH Sulfa (Sulfonamide Antibiotics) Allergy (Mild, Verified 02/18/25 08:41) RASH codeine Adverse Reaction (Mild, Verified 02/18/25 08:41) STOMACH UPSET Docusate Calcium Allergy (Mild, Uncoded 07/28/24 12:05) rash Medication List - Last Reconciled 02/25/25 by NIKI ArciniegaC acetaminophen ER 650 mg PO Q8H PRN allopurinol 300 mg PO DAILY amlodipine 10 mg PO DAILY@1200 apixaban (Eliquis) 5 mg PO BID aspirin 81 mg PO DAILY atorvastatin 80 mg PO BEDTIME bisacodyl (Dulcolax (bisacodyl)) 10 mg (2 x 5 mg) PO BEDTIME chlorthalidone 25 mg PO DAILY cholecalciferol (vitamin D3) 50 mcg PO DAILY dulaglutide (Trulicity) 3 mg subcut FR@0900 empagliflozin (Jardiance) 10 mg PO DAILY esomeprazole magnesium (Nexium) 40 mg PO DAILY@0630 fenofibrate 160 mg PO BEDTIME fluticasone furoate 100 mcg/actuation (Arnuity Ellipta) 1 inh inhalation DAILY fluticasone propionate 50 mcg/actuation 2 sprays intranasal DAILY PRN gabapentin 600 mg PO BID glipizide ER 1 tab PO BID isosorbide mononitrate ER 30 mg PO QPM lidocaine 5% 1 patch topical DAILY PRN linaclotide (Linzess) 145 mcg PO DAILY loperamide 2 mg PO Q4H PRN loratadine 10 mg PO DAILY losartan 100 mg PO DAILY metformin 500 mg PO BID metoprolol tartrate 1.5 tabs PO BID mometasone 100 mcg/actuation (Asmanex HFA) 1 inh inhalation DAILY niacin ER 500 mg PO BEDTIME oxycodone 5 mg PO BID PRN polyethylene glycol 3350 (Miralax) 238 grams PO ONCE prednisone 5 mg PO DAILY tamsulosin 0.4 mg PO DAILY HPI HPI r/s 01/20/25 6mos/egd/colo/sandie/clearance: Details: Chucho is a 59-year-old male past medical history of hypertension, hyperlipidemia, paroxysmal atrial flutter, CAD with prior LAD stenting with recurrent issues of in stent restenosis, who then underwent coronary artery bypass grafting 04/2019 who presents for follow up and preop clearance for colonoscopy and anticipated left knee procedure. Today he reports he has been doing well since his last visit July 2024. He has not been experiencing any concerning cardiac symptoms. He denies chest pains, shortness of breath, heart palpitations. He says he walks frequently, lives on the 1st floor and has 5 steps going into his home. He does nothing more exertional than walking as his activity is hindered by left knee pain. He is taking all his meds as directed and uses a pill pack from the pharmacy. No bleeding issues reported. [facility] Medical History Gout CAD (coronary artery disease) Carpal tunnel syndrome on both sides Bilateral primary osteoarthritis of knee Hypertension Osteoarthritis TIA (transient ischemic attack) Chest pain Gastroparesis Anal fistula Low back pain Perianal abscess History of panic attacks Hx of myocardial infarction Arthritis GERD (gastroesophageal reflux disease) Scoliosis Asthma Tubular adenoma Migraines Seizures Depression Diabetes Adhesive capsulitis of left shoulder Atrial flutter Cellulitis Surgical History History of incision and drainage (~10/19/21) History of umbilical hernia repair History of esophagogastroduodenoscopy (EGD) H/O colonoscopy History of open heart surgery History of sinus surgery History of appendectomy History of angioplasty Family History Father No problems noted. Mother History of stomach cancer History of liver cancer Brother No problems noted. 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 managed care director to a significant other at home: Yes (children) Do you presently have visiting nurse or other home services: No Alcohol intake: current Alcohol intake frequency: holidays/special occasions only Alcohol type: beer Patient Tobacco Use Status: Never used Tobacco Advance Directives Date on File: 05/15/22 service: No Current occupational status: disabled Review of Systems Const All systems reviewed & are unremarkable except as noted in HPI and below Denies chills, Denies fatigue, Denies fever(s), Denies frequent falls, Denies weakness, Denies weight gain and Denies weight loss ENT Denies dizziness Card Denies chest pain, Denies leg edema, Denies lightheadedness, Denies palpitations, Denies dyspnea and Denies dyspnea on exertion Resp Denies cough, Denies dyspnea and Denies dyspnea on exertion GI Denies hematochezia Musc Details: left knee pain Reports abnormal gait, Denies muscle weakness, Denies numbness, Denies radiating pain into limb and Denies tingling Neuro Reports abnormal gait, Denies dizziness, Denies frequent falls, Denies numbness, Denies tingling and Denies weakness Endo Denies fatigue and Denies palpitations Office Procedures EKG Details: Today, read by me, sinus rhythm, right bundle branch block, T-wave abnormality inferior lateral leads, rate 90, QTC 474 milliseconds [id number], Complete Assessment & Plan Assessment & Plan (1) CAD (coronary artery disease): Comment: Sees Dr Jean Code(s): I25.10 - Atherosclerotic heart disease of [place] coronary artery without angina pectoris Category: Medical Plan: History of CAD with prior LAD stent, InStent stenosis then single-vessel coronary artery bypass grafting, 04/2019 with DE ANDA to LAD. Last echo 09/22/2024 with EF 57%, possible basal inferior and inferior septal hypokinesis. When compared to prior, reader states no significant changes. His echo from 05/15/2022, reports no regional wall motion abnormalities. EKG from today showing sinus rhythm with new right bundle branch block, T-wave abnormality inferior lateral leads, rate 90. No reports of anginal symptoms. Preop for colonoscopy and possible surgical knee procedure in the near future. Will check a pharmacological nuclear stress test to evaluate for ischemia. His last nuclear stress [place]15/20[place] [facility] [place] normal. Continue aspirin indefinitely. Continue atorvastatin with ideal LDL goal less than 70. Continue metoprolol, amlodipine, isosorbide. losartan. Cardiac risk factor modification discussed. Signs and symptoms of angina reviewed. Cardiology follow-up 6 months, sooner if needed or if stress test abnormal. (2) Hypertension: Code(s): I10 - Essential (primary) hypertension Category: Medical Plan: [place] blood pressure goal less than 130/80. Adequately controlled at this time. Labs done 11/26/2024 showed potassium 4.1, creatinine 1.31. Continue chlorthalidone, losartan, isosorbide, metoprolol, amlodipine. (3) History of open heart surgery: Comment: CABG - 04/2019, single vessel, de anda to LAD Code(s): Z98.890 - Other specified postprocedural states Category: Surgical Plan: As above (4) Atrial flutter: Code(s): I48.92 - Unspecified atrial flutter Category: Medical Plan: Notes indicate 1 documented episode of atrial flutter without known reoccurrence. EKG today showing sinus rhythm, rate 90. He is denying heart palpitations. Labs 11/26/2024 showed hematocrit 44.4. Continue metoprolol for heart rate control. Continue Eliquis for anticoagulation. (5) Right bundle branch block: Code(s): I45.10 - Unspecified right bundle-branch block Category: Medical Plan: New finding on EKG today. Prior EKGs have shown incomplete right bundle branch block. (6) Abnormal EKG: Code(s): R94.31 - Abnormal electrocardiogram [ECG] [EKG] Category: Medical Plan: New finding of right bundle branch block also T-wave abnormalities inferior lateral leads. Checking nuclear stress test. (7) Preop cardiovascular exam: Code(s): Z01.810 - Encounter for preprocedural cardiovascular examination Category: Medical Plan: Preop for colonoscopy, no date yet. Also possible knee surgery in the near future, details unknown. He will require nuclear stress test to evaluate for ischemia. This note will be updated once results are known. Plan I informed the patient that his EKG today looked different from his last one, as it showed a right bundle branch block. I explained that because he is considering upcoming procedures for his knee, we should perform another stress test to ensure his heart is stable. We discussed that since he is unable to walk on the treadmill, we will proceed with a medicine-based stress test. I told him that the scheduling department will call him to set up the appointment for the test. I recommended a follow-up visit in six months, but advised him that we would see him sooner if the stress test results are abnormal. Patient Instructions: - We will order a medicine-based stress test for you. Our scheduling office will call you to set up this appointment. - Please follow up with our office in six months. - If your stress test results are abnormal, we will schedule your follow-up visit sooner. - Continue taking all your medications as prescribed. - Remember to attend your knee appointment on March 18. Patient was informed and verbally consented to the use of an ambient scribe for clinic note documentation during this visit. Visit time spent on chart review, interview, assessment, orders, documentation. Coding Level of Care Code Est Pt Level 4 (19940) Add On Problem Visit Only Diagnoses CAD (coronary artery disease) I25.10 Hypertension I10 History of open heart surgery Z98.890 Atrial flutter I48.92 Right bundle branch block I45.10 Abnormal EKG R94.31 Preop cardiovascular exam Z01.810 CPT Codes EKG - CPT: [id number], Complete ([id number]) Time Spent (min) 32
[2025-02-25 10:01] VITALS: BP 130/82; PULSE 90; BMI 35.5
--- OUTSIDE RECORDS SUMMARY | 2025-02-25 10:32 | XMS_ITS | Encounter Summary ---
Author Organization [employer] Address [address] [facility] [place] [address] Care Team Providers Care Foundry Superintendant Name Role Phone Hanna Wheat MD Primary Care Provide r Alexys Parks RN Unavailable [phone] Jayne Horvath Unavailable Reason for Visit * Reason Comments Med Refill Encounter Details Date Type Department Care Team (Late st Contact Info) Description 08/24/2022 Refill [facility] [address] [place] [address] Ellie Wheeler MD [address] [place], [place] [phone] Type 2 diabetes mellitus without complication, unspecified whether group home insulin use (CMS/[facility]); Dyslipidemia Social History Tobacco Use [...] Care Team (Late st Contact Info) Description 05/06/2025 11:00 AM EST Office Visit [facility] [address] [place], [place] [phone] Abdiel Aye, OD [address] [place] [address] documented as of this encounter Visit Diagnoses Diagnosis Type 2 diabetes mellitus without complication, unspecified whether group home insulin use Dyslipidemia Other and unspecified hyperlipidemia documented in this encounter Care Teams Foundry Superintendant Relationship Specialty Start Date End Date Hanna Wheat MD [address] [place], [place] [phone] PCP - General Family Medicine 10/30/18 Alexys Parks, BUFFY [address] [place] [address] Registered Nurse Family Medicine 09/09/24 09/09/24 Jayne Horvath 01/17/25 01/18/25 Concetta Garcia Scientific Research ManagerCatalyst Concentration Operator 11/28/22 Concetta Garcia Scientific Research ManagerCatalyst Concentration Operator 05/13/24 documented as of this encounter
--- OUTSIDE RECORDS SUMMARY | 2025-02-25 10:32 | XMS_ITS | Encounter Summary ---
Author Organization [employer] Address [address] [facility] [address] [place] [address] Care Team Providers Care Lisw Name Role Phone Hanna Wheat MD Primary Care Provide r Reason for Visit * Reason Comments Med Refill Encounter Details Date Type Department Care Team ([facility] st Contact Info) Description 02/19/2025 Refill [facility] [address] [place], [place] [phone] Hanna Wheat MD [address] [place] [address] Type 2 diabetes mellitus with hyperglycemia, without long-term current use of insulin (HCC) Social History Tobacco Use Types Packs/Day Years [...] Description 05/06/2025 11:00 AM EST Office Visit [facility] [address] [place] [address] Aye Meadows, OD [address] [place] [address] documented as of this encounter Visit Diagnoses Diagnosis Type 2 diabetes mellitus with hyperglycemia, without long-term current use of insulin (HCC) documented in this encounter Additional Health Concerns Assessment Noted Time PHQ-9 Depression Total Score: 0 05/16/19 24 9:06 AM EST documented as of this encounter Care Teams Lisw Relationship Specialty Start Date End Date Hanna Wheat MD [address] [place] [address] PCP - General Family Medicine 10/30/18 Concetta Garcia SpraggerMarketing Regional Consultant 11/28/22 Concetta Garcia SpraggerMarketing Regional Consultant 05/13/24 documented as of this encounter
--- OUTSIDE RECORDS SUMMARY | 2025-02-25 10:32 | XMS_ITS | Encounter Summary ---
Author Organization [employer] Address [address] [place] [address] [address] [place] [address] Care Team Providers Care Park Attendant Name Role Phone Hanna Wheat MD Primary Care Provide r Alexys Parks RN Unavailable [phone] Jayne Horvath Unavailable Reason for Visit * Reason Comments Med Refill Encounter Details Date Type Department Care Team (Late Contact Info) Description 11/06/2022 Refill [facility] [address] [place] [address] Shukri Carney MD [address] [place] [address] Social History Tobacco Use Types Packs/Day Years [...] Department Care Team (Late Contact Info) Description 05/06/2025 11:00 AM EST Office Visit [facility] [address] [place] [address] Aye Meadows OD [address] [place] [address] documented as of this encounter Visit Diagnoses Not on filedocumented in this encounter Care Teams Park Attendant Relationship Specialty Start Date End Date Hanna Wheat MD [address] [place] [address] PCP - General Family Medicine 10/30/18 Alexys Parks, BUFFY [address] [place] [address] Registered Nurse Family Medicine 09/09/24 09/09/24 Jayne Horvath 01/17/25 01/18/25 Concetta Garcia Hogshead CooperShipping Lead 11/28/22 Concetta Garcia Hogshead CooperShipping Lead 05/13/24 documented as of this encounter
--- OUTSIDE RECORDS SUMMARY | 2025-02-25 10:32 | XMS_ITS | Encounter Summary ---
Author Organization [employer] Address [address] [facility] [address] [place] [address] Care Team Providers Care Supervising Deputy Name Role Phone Hanna Wheat MD Primary Care Provide r Alexys Parks RN Unavailable [phone] Jayne Horvath Unavailable Reason for Visit * Reason Comments Med Refill Encounter Details Date Type Department Care Team (Late st Contact Info) Description 12/09/2023 Refill [facility] [address] [place] [address] Hanna Wheat MD [address] [place], [place] [phone] Primary osteoarthritis of both knees Social History [...] Office Visit [facility] [address] [place], [place] [phone] Abdiel, Aye, OD [address] [place] [address] documented as of this encounter Visit Diagnoses Diagnosis Primary osteoarthritis of both knees documented in this encounter Additional Health Concerns Assessment Noted Time PHQ-9 Depression Total Score: 0 05/16/19 24 9:06 AM EST documented as of this encounter Care Teams Supervising Deputy Relationship Specialty Start Date End Date Hanna Wheat MD [address] [place] [address] PCP - General Family Medicine 10/30/18 Alexys Parks, BUFFY [address] [place] [address] Registered Nurse Family Medicine 09/09/24 09/09/24 Jayne Horvath 01/17/25 01/18/25 Concetta Garcia Homicide Squad LieutenantWooden Tank Erector 11/28/22 Concetta Garcia Homicide Squad LieutenantWooden Tank Erector 05/13/24 documented as of this encounter
--- OUTSIDE RECORDS SUMMARY | 2025-02-25 10:32 | XMS_ITS | Encounter Summary ---
Author Organization [employer] Address [address] [facility] [address] [place] [address] Care Team Providers Care Mini Lab Operator Name Role Phone Hanna Wheat MD Primary Care Provide r Alexys Parks RN Unavailable [phone] Jayne Horvath Unavailable Encounter Details Date Type Department Care Team ([facility] Contact Info) Description 07/07/2022 Orders Only [facility] MEDICINE [address] [place] [address] Kendra Joya MD [address] [place] [address] Social History Tobacco Use Types Packs/Day Years [...] Upcoming Encounters Date Type Department Care Team ([facility] Contact Info) Description 05/06/2025 11:00 AM EST Office Visit [facility] OPTOMETRY [address] [place], [place] [phone] Aye Meadows, OD [address] [place] [address] documented as of this encounter Visit Diagnoses Not on filedocumented in this encounter Care Teams Mini Lab Operator Relationship Specialty Start Date End Date Hanna Wheat MD [address] [place], [place] [phone] PCP - General Family Medicine 10/30/18 Alexys Parks, BUFFY [address] [place], [place] [phone] Registered Nurse Family Medicine 09/09/24 09/09/24 Jayne Horvath 01/17/25 01/18/25 Concetta Garcia Battery Wrecker OperatorSleeve Setter Lockstitch 11/28/22 Concetta Garcia Battery Wrecker OperatorSleeve Setter Lockstitch 05/13/24 documented as of this encounter
--- OUTSIDE RECORDS SUMMARY | 2025-02-25 10:32 | XMS_ITS | Encounter Summary ---
Author Organization [employer] Address [address] [facility] [address] [place] [address] Care Team Providers Care Steward/Stewardess Chief Cargo Vessel Name Role Phone Hanna Wheat MD Primary Care Provide r Alexys Parks RN Unavailable [phone] Jayne Horvath Unavailable Encounter Details Date Type Department Care Team (Latest Contact Info) Description 07/26/2021 Abstract [facility] CONVERSION[facility] Dental, Provider, DDS Social History [...] Description 05/06/2025 11:00 AM EST Office Visit [facility] OPTOM[facility] [address] [place] [address] Aye Meadows, OD [address] [place] [address] documented as of this encounter Visit Diagnoses Not on filedocumented in this encounter Care Teams Steward/Stewardess Chief Cargo Vessel Relationship Specialty Start Date End Date Hanna Wheat MD [address] [place] [address] PCP - General Family Medicine 10/30/18 Alexys Parks, RN [address] [place] [address] Registered Nurse Family Medicine 09/09/24 09/09/24 Jayne Horvath 01/17/25 01/18/25 Concetta Garcia Chain Saw DriverTechnical Support Associate 11/28/22 Concetta Garcia Chain Saw DriverTechnical Support Associate 05/13/24 documented as of this encounter
--- OUTSIDE RECORDS SUMMARY | 2025-02-25 10:32 | XMS_ITS | Clinical Summary ---
Author Organization [facility] Address [address] [place] [address] [place] [address] Phone Care Team Providers Care Biology Intern Name Role Phone Unavailable Primary Care Provider [...] Patient will continue aspirin, atorvastatin and elequis Pain of multiple joints 05/24/2022 Contusion of rib 05/21/2022 11/21/2022 Epigastric pain [...] and weakness, 2005, Dr Whiting, on Neurontin Complicated basilar migraine [...] bx 11/2012, benign, recommend rpt [place] 2015 Immunizations Immunization Administration Dates Next Due HepB-CpG 08/14/2022,05/28/2022 Influenza Split 12/28/2012,12/04/2011 Influenza, MDCK, PF, Quadrivalent 12/28/2020,05/2018 Influenza, MDCK, Quadrivalen t, with preservative 01/08/2020 Influenza, Quadrivalent, Preservative Free 12/18,12/10/2018 Influenza, Quadrivalent, With Preservative 11/29 Influenza, Unspecified 11/27/2015,12/20/2013, [facility] SARS-COV-2 05/31/2020 Pfizer SARS-COV-2 12/18/2021,06/21/2021 Pneumococcal Conjugate [...] 49 Years) Discontinued 10/21/2016, 10/08/2016, 02/11/2002 [id number] [id number] [place]
--- OUTSIDE RECORDS SUMMARY | 2025-02-25 10:32 | XMS_ITS | Clinical Summary ---
Author Organization [employer] Address 75 [facility] 7t [place] [address] Care Team Providers Care Manager Of Learning Name Role Phone Hanna Wheat MD Primary [...] complication, without long-term current use of insulin ([facility]) Inject 1 each under the skin 2 times daily. Test 1 time by intradermal route 2 times everyday. 1 each Active azithromycin (Zithromax) 250 MG tablet Take 2 tablets PO on day one then take 1 tablet PO daily for the next 4 days 6 tablet Active diclofenac sodium 3 % gelIndications:Pr imary [...] hyperglycemia, without long-term current use of insulin ([facility]) USE DIRECTED TO TEST BLOOD SUGAR TWICE DAILY 50 strip 11 025 Active baclofen (Lioresal) 20 MG tabletIndications :Chronic bilateral low back pain without sciatica,Muscle spasm Take 1 tablet (20 mg) by mouth 3 times daily. 90 tablet 025 Active amLODIPine (Norvasc) 10 MG tabletIndications :Primary hypertension TAKE 1 TABLET BY MOUTH EVERYDAY AT NOON 90 tablet 1 025 Active Aspirin Low Dose 81 MG EC tablet TAKE 1 TABLET BY MOUTH EVERY MORNING 90 tablet 1 025 Active atorvastatin (Lipitor) 80 MG tabletIndications :Mixed hyperlipidemia TAKE 1 TABLET BY MOUTH AT BEDTIME 90 tablet 1 025 Active fenofibrate (Triglide) 160 MG tabletIndications :Dyslipidemia TAKE 1 TABLET BY MOUTH EVERY EVENING 90 tablet 1 025 Active glipiZIDE XL (Glucotrol XL) 10 MG 24 hr tabletIndications :Type 2 diabetes mellitus without complication, unspecified whether correction insulin use TAKE 1 TABLET BY MOUTH TWICE DAILY IN THE MORNING AND IN THE EVENING WITH MEALS 180 tablet 1 025 Active losartan (Cozaar) 100 MG tabletIndications :Primary hypertension,Type 2 diabetes mellitus with hyperglycemia, without long-term current use of insulin (HCC) TAKE 1 TABLET BY MOUTH EVERY MORNING 90 tablet 1 025 Active metFORMIN (Glucophage) 500 MG tabletIndications :Type 2 diabetes mellitus without complication, unspecified whether correction insulin use TAKE 1 TABLET BY MOUTH TWICE DAILY IN THE MORNING AND IN THE EVENING 180 tablet 025 Active metoprolol tartrate (Lopressor) 50 MG tabletIndications :Atherosclerosis of coronary artery of [place] heart with stable angina pectoris, unspecified vessel or lesion type TAKE 1 AND 1/2 TABLETS BY MOUTH TWICE DAILY IN THE MORNING AND IN THE EVENING 270 tablet 025 Active niacin (Niaspan) 500 MG ER tabletIndications :Mixed hyperlipidemia TAKE 1 TABLET BY MOUTH AT BEDTIME 90 tablet 025 Active tamsulosin (Flomax) 0.4 MG 24 hr capsule TAKE 1 CAPSULE BY MOUTH EVERY MORNING 90 capsule 1 025 Active TRUEplus Lancets 33G miscIndications:T ype 2 diabetes mellitus with hyperglycemia, without long-term current use of insulin (HCC) USE TO TEST BLOOD SUGAR TWICE DAILY 100 each 5 025 Active acetaminophen (Tylenol 8 Hour) 650 MG ER tablet TAKE 2 TABLETS BY MOUTH EVERY 8 HOURS NEEDED FOR MILD PAIN 40 tablet 1 02/10/20 25 8:42 AM EST 025 Active Arnuity Ellipta 100 MCG/ACT inhaler INHALE 1 PUFF BY MOUTH EVERY DAY AT THE SAME TIME RINSE MOUTH AFTER USING 30 each 3 025 Active cetirizine (ZyrTEC) 10 MG tablet TAKE 1 TABLET BY MOUTH ONCE DAILY 90 tablet 3 02/08/20 25 5:08 PM EST 025 Active cholecalciferol (D3 Super Strength) 50 MCG (1999 UT) capsuleIndication s:Low back pain, unspecified back pain laterality, unspecified chronicity, unspecified whether sciatica present TAKE 1 CAPSULE BY MOUTH EVERY MORNING 90 capsule 3 02/08/20 25 5:08 PM EST 025 Active Trulicity 3 MG/0.5ML solution auto-injectorIndi cations:Type 2 diabetes mellitus with other specified complication (HCC) INJECT ONE PEN (= 3MG) SUBCUTANEOUSLY ONCE A WEEK DIRECTED 2 mL 3 02/08/20 25 5:08 PM EST 025 Active Jardiance 10 MGIndications:Typ e 2 diabetes mellitus with hyperglycemia, without long-term current use of insulin (HCC) TAKE 1 TABLET BY MOUTH EVERY MORNING 30 tablet 3 025 Active Jardiance 10 MGIndications:Typ e 2 diabetes mellitus with hyperglycemia, without long-term current use of insulin (HCC) TAKE 1 TABLET BY MOUTH EVERY MORNING 30 tablet 3 025 2024 Discontinued Active Problems Problem Noted [...] (05/02/2022): On CT Hemorrhoids 05/24/2016 Atrial fibrillation ([facility]/HCC) 11/27/2015 Gastroesophageal reflux disease 10/27/2015 Overview (05/02/2022): Small sliding hiatal hernia Atherosclerosis of coronary artery 12/04/2011 Overview (05/21/2022): Cath Jan 2014, s/p multiple stent at [facility], Dr Luo, Several stress tests, [...] Encounters Date Type Department Care Team Description 02/19/2025 Refill [facility] [address] [place] [address] Hanna Wheat MD Type 2 diabetes mellitus with hyperglycemia, without long-term current use of insulin (HCC) 02/07/2025 Refill [facility] [address] [place] [address] Hanna Wheat MD 01/24/2025 Refill [facility] [address] [place] [address] Hanna Wheat MD Type 2 diabetes mellitus with other specified complication (HCC) 01/18/2025 Patient Outreach [facility] [address] [place] [address] Hanna Wheat MD Care Coordination (Communication to pat assigned CP Coordinator) 01/17/2025 Patient Outreach [facility] [address] [place], [place] [phone] Hanna Wheat MD Care Coordination (CP Care Coordination Chart Review) 01/17/2025 Patient Outreach [facility] [address] [place] [address] Hanna Wheat MD Care Coordination (CP Care Coordination Chart Review) 01/17/2025 Patient Outreach [facility] [address] [place] [address] Hanna Wheat MD 12/23/2024 Refill [facility] [address] [place] [address] Diane Castanon DO Low back pain, unspecified back pain laterality, unspecified chronicity, unspecified whether sciatica present 12/23/2024 Refill [facility] [address] [place] [address] Hanna Wheat MD Low back pain, unspecified back pain laterality, unspecified chronicity, unspecified whether sciatica present 12/03/2024 Refill [facility] [address] [place] [address] Hanna Wheat MD from Last 3 Months Immunizations Immunization [...] Description 05/06/2025 11:00 AM EST Office Visit [facility] [address] [place] [address] Abdiel, Aye, OD [address] [place] [address] Health Maintenance Due Date Last Done Comments CT Colonography 1964 FIT DNA/Cologuard 1964 FIT 1964 FOBT 1964 HIV Screening 1964 Sigmoidoscopy 1964 Disability Screening 1964 Diabetes: Foot Exam 1974 Alcohol/Substance Use Screening 1976 Hepatitis C Screening 1982 Hepatitis A Vaccines (1 of 2 - Risk 2-dose series) 1983 RSV Patients and Patients Aged 60 years or older (1 - Risk 50-74 years 1-dose series) 2014 Pneumococcal Vaccine: 50+ Years (3 of 3 - PCV20 or PCV21) 10/21/2021 10/21/2016, 10/08/2016, 02/11/2002 Diabetes: Urine Protein Screening 02/05/2022 02/05/2021, 02/05/2021 Colonoscopy 05/29/2023 05/28/2020 Colorectal Cancer Screening 05/29/2023 Depression Screening 05/15/2024 05/16/2023, 05/16/19 24 SDOH Screening 09/01/2024 09/02/2023 COVID-19 Vaccine ( season) 2024 01/01/2024, 01/17/2023, 12/18/2021, Additional history exists Influenza Vaccine (#1) 2024 , 01/07/2023, 12/18/2021, Additional history exists Diabetes: Hemoglobin A1C 01/15/2025 025, 09/12/2023, 05/16/2023, Additional history exists Lipid Panel 05/21/2025 05/21/2024, 08/02/2020 Tobacco Screening 07/15/2025 07/15/2024 Eye Exam 03/19/2026 03/19/2024, 03/10, 03/19/2024, Additional history exists DTaP/Tdap/Td Vaccines (3 - Td or Tdap) 08/19/2028 08/19/2018, 10/08/2016, 08/16/2011, Additional history exists Hepatitis B Vaccines Completed 08/14/2022, 05/29/19 Zoster Vaccines Completed 08/14/2022, 05/28/2022 HIB Vaccines Aged Out No longer eligi [...] Procedure Name Priority Date/Time Associated Diagnosis Comments SED RATE BY MODIFIED MEGANREN Routine 11/26/2024 7:57 AM EDT C-REACTIVE PROTEIN Routine 11/26/2024 7: 57 AM EDT URIC ACID Routine 11/26/2024 7:57 AM EDT COMPREHENSIVE METABOLIC PANEL Routine 11/26/2024 7:57 AM EDT CBC WITH AUTO DIFFERENTIAL Routine 11/26/2024 7:57 AM EDT POCT GLYCATED HEMOGLOBIN, TOTAL Routine 07/15/2024 3:27 PM EDT Type 2 diabetes mellitus without complication, without long-term current use of insulin ([facility]) LIPID PANEL WITH REFLEX TO DIRECT LDL Routine 05/21/2024 9:57 AM EDT Primary hypertension ALBUMIN, RANDOM URINE W/CREATININE Routine 02/05/2021 2:07 PM EST HM COLONOSCOPY Routine 05/28/2020 from Last 3 Months or Most Recently Relevant to Health Maintenance Results * CBC auto differential (11/26/2024 7:57 AM EDT) White Blood Count 8.2 4.8 - 10.8 X10*3/uL [facility] Red Blood Count 5.20 4.60 - 5.80 X10*6/uL [facility] Hemoglobin 15.1 14.0 - 18.0 g/dl [facility] Hematocrit 44.4 42.0 - 52.0 % [facility] Mean Corpuscular Volume 85.4 80.0 - 98.0 fL [facility] Mean Corpuscular Hemoglobin 29.0 27.0 - 33.0 pg [facility] Mean Corpuscular HGB Conc 34.0 31.0 - 36.0 g/dl [facility] Red Cell Distribution Width 13.6 11.0 - 16.0 % [facility] Platelet Count 379 160 - 400 X10*3/uL [facility] Mean Platelet Volume 9.4 9.4 - 12.4 fL [facility] Neutrophils Percent Auto 49.2 45 - 73 % [facility] Imm Gran Pct Auto 0.2 0.0 - 0.4 % [facility] Lymphocytes Percent Auto 38.4 20 - 40 % [facility] Monocytes Percent Auto 7.3 2 - 11 % [facility] Eosinophils Percent Auto 3.8 0 - 4 % [facility] Basophils Percent Auto 1.1 0 - 2 % [facility] NRBC Pct Auto 0.0 0.0 - 0.2 /100WBC [facility] Neutrophils Absolute Auto 4.0 2.0 - 8.3 x10*3/uL [facility] Imm Gran Abs Auto 0.02 0.00 - 0.03 X10*3/uL [facility] Lymphocytes Absolute Auto 3.2 1.2 - 4.9 X10*3/uL [facility] Monocytes Absolute Auto 0.6 0.1 - 1.2 X10*3/uL [facility] Eosinophils Absolute Auto 0.3 0.0 - 0.4 X10*3/uL [facility] Basophils Absolute Auto 0.1 0.0 - 0.2 X10*3/uL [facility] NRBC Abs Auto 0.000 0.0 - 0.012 X10*3/uL [facility] 11/26/2024 7:57 AM EDT 11/26/2024 7:57 AM EDT us Generic External Data Provider LAB BLOOD ORDERAB LES Final Result [facility] [address] [place] [phone] * Sed Rate by Modified Rajwinder (11/26/2024 7:57 AM EDT) Erythrocyte Sedimentation Rate 8 0 - 15 MM/HR [facility] Comment:Patients with polycy themia and many hemoglobin abnormalitiesmay have depressed sed rates whereas patients with anemiamay have elevated sed rates. 11/26/2024 7:57 AM EDT 11/26/2024 7:57 AM EDT us Generic External Data Provider LAB BLOOD ORDERAB LES Final Result Performing Organization Address [facility] Co de Phone Number [facility] [address] [place] [phone] [phone] * (ABNORMAL) C-reactive Protein (11/26/2024 7:57 AM EDT) Pathologist [facility] C Reactive Protein 1.08(H) < or = 0.50 mg/dL [facility] 11/26/2024 7:57 AM EDT 11/26/2024 7:57 AM EDT Generic External Data Provider LAB BLOOD ORDERAB LES Final Result Performing Organization Address [facility] Co de Phone Number [facility] [address] [place] [phone] * (ABNORMAL) Uric acid (11/26/2024 7:57 AM EDT) [facility] Uric Acid 10.4(H) 3.4 - 7.0 mg/dL [facility] 11/26/2024 7:57 AM EDT 11/26/2024 7:57 AM EDT Generic External Data Provider LAB BLOOD ORDERAB LES Final Result Performing Organization Address [facility] [[email or web address]] de Phone Number [facility] [address] [place] [phone] * (ABNORMAL) Comprehensive Metabolic Panel (11/26/2024 7:57 AM EDT) Pathologist [facility] Sodium 138 135 - 145 mmol/L [facility] Potassium 4.1 3.3 - 5.1 mmol/L [facility] Chloride 104 96 - 108 mmol/L [facility] Carbon Dioxide 27 22 - 29 mmol/L [facility] Anion Gap 11(L) 12 - 20 [facility] Urea Nitrogen (BUN) 30(H) 9 - 16 mg/dL [facility] Creatinine, Serum 1.31 0.5 - 1.4 mg/dL [facility] Estimated Glomerular Filt Rate 56 [facility] Comment:Chronic Kidney Disea se: Estimated GFR < 60 mL/min/[id number] Kidney Disease: Estimated GFR < 15 mL/min/1.73m2 Glucose 165(H) 60 - 115 mg/dL [facility] Calcium 9.7 8.4 - 10.2 mg/dL [facility] Bilirubin, Total 0.4 0.0 - 1.0 mg/dL [facility] Aspartate Amino Transferase 22 5 - 37 U/L [facility] Alanine Aminotransferase 21 0 - 40 U/L [facility] Total Protein 7.7 6.5 - 8.0 g/dL [facility] Albumin Level 4.5 3.5 - 5.0 g/dL [facility] Alkaline Phosphatase 94 39 - 117 U/L [facility] 11/26/2024 7:57 AM EDT 11/26/2024 7:57 AM EDT us Generic External Data Provider LAB BLOOD ORDERAB LES Final Result [facility] [address] [place] [address] [phone] * (ABNORMAL) POCT HGB A1C (07/15/2024 3:27 PM EDT) Hemoglobin A1C 6.9(A) 4.0 - 6.0 % QC Media Lot # [id number] Lot# Expiration Date Blood 07/15/2024 3:27 PM EDT us Hanna Kimball MD POINT OF CARE TEST EN TER/EDIT ORDERABLES Final Result * (ABNORMAL) Lipid Panel with Reflex to Direct LDL (05/21/2024 9:57 AM EDT) Triglycerides 346(H) <150 mg/dL [facility] Comment:Desirable Triglyceri de: less than 150 mg/dLBorderline High Triglyceride 150-199 mg/dLHigh Triglyceride: 200-499 mg/dLVery High Triglyceride: greater than or equal to 5OO mg/dL Cholesterol 241(H) <200 mg/dL [facility] Comment:Desirable Cholestero l: less than 200 mg/dLBorderline High Cholesterol: 200-239 mg/dLHigh Cholesterol: greater than 239 mg/dL LDL Cholesterol Calculated 139(H) <100 mg/dL [facility] Comment:Desirable LDL: less than 100 mg/dLNear Optimal/Above Optimal LDL: 110- 129 mg/dLBorderline High LDL: 130-159 mg/dLHigh LDL: 160-189 mg/dLVery High LDL: greater than or equal to 190 mg/dL HDL Cholesterol 33(L) >40 mg/dL [facility] Comment:Desirable HDL: great er than 40 mg/dL Note: This HDL assay may give artificially low results in patients with liver disease. Blood 05/21/2024 9:57 AM EDT 05/21/2024 9:57 AM EDT us Hanna Kimball MD LAB BLOOD ORDERABLES Final Result [facility] [address] [place] [phone] * ALBUMIN, RANDOM URINE W/CREATININE (02/05/2021 [...] Kimball MD LAB URINE ORDERABLES Final Result [facility] [address] * Hm Colonoscopy (05/28/2020) Historical Provider HEALTH MAINTENANCE Final Result from Last 3 Months or Most Recently Relevant to Health Maintenance Insurance [employer] C3 Care Teams Manager Of Learning Relationship Specialty Start Date End Date Hanna Wheat MD [address] [place] [phone] PCP - General Family Medicine 10/30/18 Concetta Garcia Production Planning ManagerIncome Tax Administrator 11/28/22 Concetta Garcia Production Planning ManagerIncome Tax Administrator 05/13/24
--- OUTSIDE RECORDS SUMMARY | 2025-02-25 10:32 | XMS_ITS | Encounter Summary ---
Author Organization [email or web address] Address [address] [facility] [address] [place] [address] Care Team Providers Care Cryptography Teacher Name Role Phone Hanna Wheat MD Primary Care Provide r Reason for Visit * Reason Comments Med Refill Encounter Details Date Type Department Care Team (Late st Contact Info) Description 02/07/2025 Refill [facility] [address] [place] [address] [phone] Hanna Wheat MD [address] [place] [address] Social History Tobacco Use Types Packs/Day Years [...] Upcoming Encounters Date Type Department Care Team ([facility] st Contact Info) Description 05/06/2025 11:00 AM EST Office Visit [facility] OPTOMETRY [address] [place] [address] Aye Meadows, OD [address] [place] [address] documented as of this encounter Visit Diagnoses Not on filedocumented in this encounter Additional Health Concerns Assessment Noted Time PHQ-9 Depression Total Score: 0 05/16/19 24 9:06 AM EST documented as of this encounter Care Teams Cryptography Teacher Relationship Specialty Start Date End Date Hanna Wheat MD [address] [place] [address] PCP - General Family Medicine 10/30/18 Concetta Garcia Kitchen ChefTomographic Tech 11/28/22 Concetta Garcia Kitchen ChefTomographic Tech 05/13/24 documented as of this encounter
--- OUTSIDE RECORDS SUMMARY | 2025-02-25 10:32 | XMS_ITS | Encounter Summary ---
Author Organization [employer] Address 75 [facility] [address] [place] [address] Care Team Providers Care Flat Folding Machine Operator Name Role Phone Hanna Wheat MD Primary Care Provide r Alexys Parks RN Unavailable [phone] Jayne Horvath Unavailable Reason for Visit * Reason Comments Med Refill Encounter Details Date Type Department Care Team (Late st Contact Info) Description 08/24/2022 Refill [facility] [address] [place] [address] Kendra Joya MD [address] [place] [address] Atherosclerosis of coronary artery of [place] heart with stable angina pectoris, unspecified vessel [...] Description 05/06/2025 11:00 AM EST Office Visit [facility] OPTOMETRY [address] [place], [place] [phone] Aye Meadows, OD [address] [place] [address] documented as of this encounter Visit Diagnoses Diagnosis 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
--- OUTSIDE RECORDS SUMMARY | 2025-02-25 10:32 | XMS_ITS | Encounter Summary ---
Author Organization [employer] Address [address] [place] [address] [address] [place] [address] Care Team Providers Care Customer Management Specialist Name Role Phone Hanna Wheat MD Primary Care Provide r Alexys Parks RN Unavailable [phone] Jayne Horvath Unavailable Reason for Visit * Reason Comments Med Refill Encounter Details Date Type Department Care Team (Late Contact Info) Description 11/07/2022 Refill [facility] MED & PEDS [address] [place] [address] Shukri Carney MD [address] [place] [address] Seasonal allergies; Low back pain, unspecified back [...] Description 05/06/2025 11:00 AM EST Office Visit [facility] OPTOMETRY [address] [place], [place] [phone] Aye Meadows, OD [address] [place] [address] documented as of this encounter Visit Diagnoses Diagnosis Seasonal allergies Allergic rhinitis, cause unspecified Low back pain, unspecified back pain laterality, unspecified chronicity, unspecified whether sciatica present documented in this encounter Care Teams Customer Management Specialist Relationship Specialty Start Date End Date Hanna Wheat MD [address] [place], [place] [phone] PCP - General Family Medicine 10/30/18 Alexys Parks, BUFFY [address] [place] [phone] Registered Nurse Family Medicine 09/09/24 09/09/24 Jayne Horvath 01/17/25 01/18/25 Concetta Garcia Fingerprint TechnicianInventory Control Planner 11/28/22 Concetta Garcia Fingerprint TechnicianInventory Control Planner 05/13/24 documented as of this encounter
--- OUTSIDE RECORDS SUMMARY | 2025-02-25 10:33 | XMS_ITS | Clinical Summary ---
Author Organization [facility] Address [address] [place] [address] Care Team Providers Care Arborist Name Role Phone Hanna Wheat MD Primary Care Provide r Surgical History Surgery Date Site/Laterality Comments CARDIAC CATHETERIZATION PROCEDURE: HISTORICAL CARDIAC CATH; COMMENT: Cath Jan 2014 s/p mult stents at [facility] APPENDECTOMY PROCEDURE: HISTORICAL APPENDECTOMY HERNIA REPAIR PROCEDURE: HISTORICAL HERNIA REPAIR/UMB OTHER SURGICAL HISTORY PROCEDURE: ---- OTHER ----; COMMENT: sinus surgery COLONOSCOPY 2014 PROCEDURE: HISTORICAL COLONOSCOPY; COMMENT: repeat in 5 yrs, per patient, at [facility] Medical History Medical History Date Comments Atrial fibrillation (CMS/HCC V24, CMS/HCC V28) 11/27/2015 DX:Atrial fibrillation ([facility]) ; COMMENT: During hospital admission at [facility] Nov 2015, reverted to sinus wiith meds, f/u Cardio at [facility], will have 30day loop recorder, off anticoagulation per cardiology CAD (coronary artery disease) 10/27/2015 DX :CAD (coronary artery disease); COMMENT: Cath Jan 2014, s/p multiple stent at [facility], Dr Luo, Several stress tests, echos [...] Date Last Done Comments Colorectal Cancer Screening: Colonoscopy 1964 Diabetes: Annual GFR (Glomerular Filtration Rate) 1964 Diabetes: Annual Foot Exam 1974 Diabetes: Annual Retina Eye Exam 1974 Hepatitis A Vaccines (1 of 2 - Risk 2-dose series) 1983 RSV Immunization Adult Patients (1 - Risk 50-74 years 1-dose series) 2014 Zoster Vaccines (1 of 2) 2014 Pneumococcal Vaccine: 50+ Years (3 of 3 - PCV20 or PCV21) 10/08/2021 10/08/2016, 02/11/2002 Cholesterol Screening (Lipid Panel) 10/07/2023 Diabetes: Annual Urine Albumin-Creatinine Ratio (uACR) 10/07/2023 Diabetes: Blood Sugar Contro l Test (HGBA1C) 10/07/2023 HIV Screening 10/07/2023 Hepatitis C Screening 10/07/2023 Hypertension/CHF/CAD Annual BMP Blood Test 10/07/2023 Social Influencers of Health Screening 10/07/2023 Hepatitis B Vaccines (1 of 3 - Risk 3-dose series) 2024 Depression Screening 03/10/2024 COVID-19 Vaccine (2024-2 6 season) 2024 Influenza Vaccine (#1) 2024 9, [...] age to complete this topic Care Teams Arborist Relationship Specialty Start Date End Date Hanna Wheat MD [address] [place] [phone] PCP - General 03/20/23
--- OUTSIDE RECORDS SUMMARY | 2025-02-25 10:33 | XMS_ITS | Encounter Summary ---
Author Organization [employer] Address [address] [facility] [address] [place] [address] Care Team Providers Care Chemical Reclamation Equipment Operator Name Role Phone Hanna Wheat MD Primary Care Provide r Alexys Parks RN Unavailable [phone] Jayne Horvath Unavailable Reason for Visit * Reason Comments Med Refill Encounter Details Date Type Department Care Team (Late st Contact Info) Description 07/16/2024 Refill [facility] [address] [place] [address] Kendra Joya MD [address] [place], [place] [phone] Social History Tobacco Use Types Packs/Day Years [...] Description 05/06/2025 11:00 AM EST Office Visit [facility] [address] [place] [address] Abdiel, Aye, OD [address] [place] [address] documented as of this encounter Visit Diagnoses Not on filedocumented in this encounter Additional Health Concerns Assessment Noted Time PHQ-9 Depression Total Score: 0 05/16/19 24 9:06 AM EST documented as of this encounter Care Teams Chemical Reclamation Equipment Operator Relationship Specialty Start Date End Date Hanna Wheat MD [address] [place] [address] PCP - General Family Medicine 10/30/18 Alexys Parks, RN [address] [place] [address] Registered Nurse Family Medicine 09/09/24 09/09/24 Jayne Horvath 01/17/25 01/18/25 Concetta Garcia Apple TurnerSawmill Moulder Operator 11/28/22 Concetta Garcia Apple TurnerSawmill Moulder Operator 05/13/24 documented as of this encounter
--- OUTSIDE RECORDS SUMMARY | 2025-02-25 10:33 | XMS_ITS | Encounter Summary ---
Author Organization [employer] Address [address] [place] [address] [address] [place] [address] Care Team Providers Care Building Construction Estimator Name Role Phone Hanna Wheat MD Primary Care Provide r Alexys Parks RN Unavailable [phone] Jayne Horvath Unavailable Encounter Details Date Type Department Care Team (Late Contact Info) Description 11/15/2022 Orders Only [facility] [address] [place] [address] Provider, MD Jacinto Social History Tobacco Use [...] Description 05/06/2025 11:00 AM EST Office Visit [facility] [address] [place], [place] [phone] Aye Meadows, OD [address] [place], [place] [phone] documented as of this encounter Procedures Procedure Name Priority Date/Time Associated Diagnosis Comments HM COLONOSCOPY Routine 05/28/2020 documented in this encounter Results * Hm Colonoscopy (05/28/2020) us Historical Provider HEALTH MAINTENANCE Final Result documented in this encounter Visit Diagnoses Not on filedocumented in this encounter Care Teams Building Construction Estimator Relationship Specialty Start Date End Date Hanna Wheat MD [address] [place] [address] PCP - General Family Medicine 10/30/18 Alexys Parks, BUFFY [address] [place] [address] Registered Nurse Family Medicine 09/09/24 09/09/24 Jayne Horvath 01/17/25 01/18/25 Concetta Garcia Lining SewerManagement Manager 11/28/22 Concetta Garcia Lining SewerManagement Manager 05/13/24 documented as of this encounter
== END 2025-02-25 10:24 | disposition home or self-care (01) ==
LOC: HO.HCS 09:42
PROVIDERS: PCP Internal Medicine; Visit Provider Nurse Practitioner Family
DX: I25.10 Atherosclerotic heart disease of native coronary artery without angina pectoris (principal); I10 Essential (primary) hypertension; Z98.890 Other specified postprocedural states; I48.92 Unspecified atrial flutter; I45.10 Unspecified right bundle-branch block; R94.31 Abnormal electrocardiogram [ECG] [EKG]; Z01.810 Encounter for preprocedural cardiovascular examination
CPT/HCPCS: 93010; 99214

== ENCOUNTER → 2025-02-25 09:42 | Outpatient (BNVA) | payer MEDICAID, SELFPAY | PROVIDERS: PCP Internal Medicine; Visit Provider Nurse Practitioner Family | DX: Z01.810 Encounter for preprocedural cardiovascular examination (principal); I25.10 Atherosclerotic heart disease of native coronary artery without angina pectoris; I10 Essential (primary) hypertension; I48.92 Unspecified atrial flutter; I45.10 Unspecified right bundle-branch block; R94.31 Abnormal electrocardiogram [ECG] [EKG] | CPT/HCPCS: 93005; 99212 ==